=== PATIENT | female | born 1950 | race Caucasian/White ===

== ENCOUNTER 2023-04-25 23:58 | Emergency (ER) | payer OTHER, SELFPAY ==
[2023-04-26 00:02] VITALS: BP 174/76; PULSE 70; RESP 14; TEMP 36.6; O2SAT 95; BMI 23.8
--- NOTE | 2023-04-26 00:06 | ECG_ITS ---
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
--- NOTE | 2023-04-26 00:14 | PC.NURSE ---
Pain to left lower jaw. No pain to a specific tooth, just the entire lower jaw. Patient states that she was at the dentist last week and was told that she had a dental abscess, but was not put on an antibiotic. She is not having pain in her throat, ears, chest.
--- NOTE | 2023-04-26 00:38 | XR_ITS ---
The [address] [address] Patient Name: NEELAM VIRAMONTES MRN: [id number] date: 1950 Sex: F Assigned Patient Location: ER Current Patient Location: ED.MAIN Accession/Order Number: [id number] Exam Date: 04/26/2023 00:41 Report Date: 04/26/2023 01:04 At the request of: FREDDY MARKER Procedure: XR chest 1V XR chest 1V 04/25/2023 11:41 PM LICENSED NURSE PRACTITIONER: History: CP . Acute chest pain. Comparison: None. Technique: 1 view chest Findings: The cardiomediastinal silhouette is normal. The lungs are clear without infiltrate, effusion, or pneumothorax. There is a calcified granuloma in the left midlung. The bones are intact. XR/XR chest 1V Impression: No acute cardiopulmonary process. Electronically authenticated by: ANA MARIA WAYNE Date: 04/26/2023 01:04
--- NOTE | 2023-04-26 00:44 | ED_ITS ---
HPI - General Adult General Chief complaint: Chest Pain Stated complaint: CHEST PAIN HEADACHE Time Seen by Provider: 04/26/23 00:13 Source: patient and family () Mode of arrival: walk-in Limitations: no limitations History of Present Illness HPI narrative: This 73-year-old female is brought emergency department by her for evaluation of multiple complaints; she complains of left lower jaw/dental area pain. She was recently at her dentist and was told that she has a dental abscess but no antibiotics were prescribed. She also has a sore throat. Earlier tonight she had some nonradiating midsternal chest pain. She denies any shortness of breath dizziness or syncope. She does have a history of one coronary stent that was placed many years ago. She also has a history of vascular disease and has an aortic stent. The patient follows up with cardiology at [facility]. She currently has a headache as well. She has not had a fever or cough. She has no abdominal pain. She has no lower extremity pain or swelling. She is not currently on any blood thinners including aspirin after having an intraabdominal bleed at the time that her infrarenal stent was placed. Related Data Home Medications Medication Instructions Recorded Confirmed carvedilol 12.5 mg tablet mg 04/26/23 doxazosin 2 mg tablet mg 04/26/23 hydralazine 50 mg tablet mg 04/26/23 rosuvastatin 20 mg tablet mg 04/26/23 Allergies Allergy/AdvReac Type Severity Reaction Status Date / Time No Known Drug Allergies Allergy Verified 04/26/23 00:08 Review of Systems ROS Status of ROS 10 or more systems reviewed and unremark able except as noted in history and below [facility] Social History Smoking status: Former smoker Exam Narrative Exam Narrative: Nurses note and vital signs reviewed and patient is not hypoxic. Blood pressure is noted to be elevated at 174/76 General: The patient appears well and in no apparent distress. Patient is resting comfortably on cart. Skin: Warm, dry, no pallor noted. There is no rash noted. Head: Normocephalic, atraumatic Eye: Normal conjunctiva, no drainage, EOMI. PERRL. Vision is grossly intact Ears, Nose, Mouth, and Throat: oral mucosa is moist. There are several missing teeth and teeth with silver caps on the left lower jaw area. I do not appreciate any gingival inflammation or periapical abscess. There is no fluctuance or appreciable abscess at the angle of the jaw or mandible, there is no swelling of the tongue, uvula or pharyngeal soft tissues, there is no pooling of secretions, the patient's speech is clear Cardiovascular: Regular Rate and Rhythm S1 S2, pulses are brisk and equal bilaterally Respiratory: Patient is in no distress, no accessory muscle use, lungs are clear to auscultation, no wheezing, rales or rhonchi Back: non-tender, no CVA tenderness bilaterally to percussion. GI: Normal bowel sounds, no tenderness to palpation, no masses appreciated. No rebound, guarding, or rigidity noted. Musculoskeletal: The patient has no evidence of calf tenderness, no pitting edema, symmetrical pulses noted bilaterally Neurological: A&O x4, normal speech Psychiatric: Cooperative Constitutional Vital Signs, click to edit/add: Last Vital Signs Temp 98.0 F 04/26/23 02:48 Pulse 78 04/26/23 02:48 Resp 18 04/26/23 02:48 BP 150/74 H 04/26/23 02:48 Pulse Ox 99 04/26/23 02:48 O2 Del Method Room Air 04/26/23 02:48 Course Vital Signs Vital signs: Vital Signs Temperature 97.9 F 04/26/23 00:02 Pulse Rate 70 04/26/23 00:02 Respiratory Rate 14 04/26/23 00:02 Blood Pressure 174/76 H 04/26/23 00:02 Pulse Oximetry 95 04/26/23 00:02 Oxygen Delivery Method Room Air 04/26/23 00:02 Temperature 98.0 F 04/26/23 02:48 Pulse Rate 78 04/26/23 02:48 Respiratory Rate 18 04/26/23 02:48 Blood Pressure 150/74 H 04/26/23 02:48 Pulse Oximetry 99 04/26/23 02:48 Oxygen Delivery Method Room Air 04/26/23 02:48 Medical Decision Making MDM Narrative Medical decision making narrative: This 73-year-old female with a history of chronic renal insufficiency, coronary artery disease, vascular disease who has a coronary stent and a infrarenal stent presents for evaluation of intermittent chest pain that started earlier in the day and is no longer present as well as pain in her throat and pain in the left side of her jaw. She was recently diagnosed with a dental abscess by her dentist but was not provided with any antibiotics. She is mostly concerned that she has a dental abscess without any antibiotics upon presentation. Her vital signs were normal. She is afebrile. Her physical exam is benign. Her lungs are clear. She does have several missing teeth but I do not see any sign of any fluctuance, jaw tenderness or palpable abscess. She is not having any abdominal pain or lower 70 pain or swelling. She is not on any blood thinners despite having a coronary stents and infrarenal stent becausse she had intra-abdominal bleeding at the time that her infrarenal stent was placed. An EKG was done upon arrival it is a sinus rhythm at 69 beats for minute with no acute changes. She was medicated with 324 mg baby aspirin for the history of chest pain earlier in the day. Her is very attentive to her and managing that she receive antibiotics and pain medication for the dental issue that she is having. She was medicated with Tylenol and 1.5 g of IV Unasyn. Routine cardiac labs were ordered and are reviewed. She has a normal white count and hemoglobin. She has normal troponin. She has chronic renal insufficiency and her creatinine today is 1.49 With a BUN of 33.Chest x-ray was reviewed by radiology and is negative for acute findings. The results of the EKG, x-ray and labs discussed with the patient and her . She will be discharged home with a prescription for amoxicillin to use for the dental infection. She re quests something for pain because she does not think the antibiotics will help her pain and was given a short course of tramadol for the pain. She was also given Zofran to prevent nausea from the tramadol. I encouraged her to follow-up closely with her family physician, [facility]. Lab Data Lab results reviewed: Yes I reviewed the patient's lab results Labs: Lab Results 04/26/23 Range/Units 00:51 WBC 7.9 (4.0-11.0) 10^3/uL RBC 3.36 L (4.20-5.40) 10^6/uL Hgb 10.4 L (12.0-16.0) g/dL Hct 33.3 L (36.0-48.0) % MCV 99.1 H (81.0-99.0) fL MCH 31.0 (26.7-34.0) pg MCHC 31.2 (29.9-35.2) g/dL RDW 13.2 (11.0-15.0) % Plt Count 154 (150-450) 10^3/uL MPV 9.5 (9.5-13.5) fL Neut % (Auto) 72.5 (43.0-75.0) % Lymph % (Auto) 15.8 L (20.5-60.0) % [place] % (Auto) 9.0 (1.7-12.0) % Eos % (Auto) 2.0 (0.9-7.0) % Baso % (Auto) 0.4 (0.2-2.0) % Neut # (Auto) 5.7 (1.4-6.5) 10^3/uL Lymph # (Auto) 1.3 (1.2-3.8) 10^3/uL [place] # (Auto) 0.7 (0.3-0.8) 10^3/uL Eos # (Auto) 0.2 (0.0-0.7) 10^3/uL Baso # (Auto) 0.0 (0.0-0.1) 10^3/uL Abs Immat Gran (auto) 0.02 (0.00-0.03) 10^3/uL Imm/Tot Granulo (auto) 0.3 (0.0-0.5) % Sodium 143 (136-145) mmol/L Potassium 4.2 (3.5-5.1) mmol/L Chloride 107 (98-107) mmol/L Carbon Dioxide 26.0 (21.0-32.0) mmol/L Anion Gap 14.2 BUN 33.0 H (7.0-18.0) mg/dL Creatinine 1.49 H (0.55-1.02) mg/dL Est GFR ( Amer) 42 L (>=60) Est GFR (Non-Af Amer) 34 L (>=60) BUN/Creatinine Ratio 22.1 Glucose 114 H (74-106) mg/dL Lactate 0.5 (0.4-2.0) mmol/L Calcium 8.4 L (8.5-10.1) mg/dL Total Bilirubin 0.4 (0.2-1.0) mg/dL AST 16 (15-37) U/L ALT 14 (14-59) U/L Alkaline Phosphatase 69 (46-116) U/L Troponin I High Sens 6.8 (4.0-51.3) pg/mL Total Protein 6.2 L (6.4-8.2) g/dL Albumin 2.9 L (3.4-5.0) g/dL Globulin 3.3 g/dL Albumin/Globulin Ratio 0.9 ECG Data Attestation: I personally reviewed and interpreted this ECG as follows: (Sinus rhythm at 69 beats for minute, normal axis, normal intervals, no acute ST segment elevation or T-wave inversion) Discharge Plan Discharge Chief Complaint: Chest Pain Clinical Impression: Atypical chest pain, Pain, dental Patient Disposition: Home, Self-Care Time of Disposition Decision: 02:37 Condition: Good Prescriptions / Home Meds: No Action carvedilol 12.5 mg tablet hydralazine 50 mg tablet doxazosin 2 mg tablet rosuvastatin 20 mg tablet Instructions: Toothache (ED), Noncardiac Chest Pain (ED) Stand Alone Forms: Portal Instructions Referrals: Physician,Non-Staff, MD [Primary Care Provider] - 1 week Discharge Date/Time: 04/26/23 02:50
[2023-04-26 01:10] LABS: Basophils Percent Auto 0.4 % (0.2-2.0); Eosinophils Absolute Auto 0.2 10^3/uL (0.0-0.7); Hematocrit 33.3 % (36.0-48.0); Hemoglobin 10.4 g/dL (12.0-16.0); Immature Granulocytes Abs Auto 0.02 10^3/uL (0.00-0.03); Immature Granulocytes Pct Auto 0.3 % (0.0-0.5); Lymphocytes Absolute Auto 1.3 10^3/uL (1.2-3.8); Lymphocytes Percent Auto 15.8 % (20.5-60.0); Mean Corpuscular HGB Conc 31.2 g/dL (29.9-35.2); Mean Corpuscular Volume 99.1 fL (81.0-99.0); Mean Platelet Volume 9.5 fL (9.5-13.5); Monocytes Absolute Auto 0.7 10^3/uL (0.3-0.8); Neutrophils Absolute Auto 5.7 10^3/uL (1.4-6.5); Neutrophils Percent Auto 72.5 % (43.0-75.0); Platelet Count 154 10^3/uL (150-450); Red Blood Count 3.36 10^6/uL (4.20-5.40); Red Cell Distribution Width 13.2 % (11.0-15.0); White Blood Count 7.9 10^3/uL (4.0-11.0)
[2023-04-26 01:25] LABS: Alanine Aminotransferase 14 U/L (14-59); Albumin Globulin Ratio 0.9; Albumin Level 2.9 g/dL (3.4-5.0); Alkaline Phosphatase 69 U/L (46-116); Anion Gap 14.2; Aspartate Amino Transferase 16 U/L (15-37); BUN Creatinine Ratio 22.1; Bilirubin Total 0.4 mg/dL (0.2-1.0); Calcium 8.4 mg/dL (8.5-10.1); Chloride 107 mmol/L (98-107); Estimated GFR (African America 42 (>=60); Estimated GFR (Non-African Ame 34 (>=60); Globulin 3.3 g/dL; Glucose 114 mg/dL (74-106); Lactate/Lactic Acid 0.5 mmol/L (0.4-2.0); Potassium 4.2 mmol/L (3.5-5.1); Sodium 143 mmol/L (136-145); Total Protein 6.2 g/dL (6.4-8.2); Troponin I High Sensitivity 6.8 pg/mL (4.0-51.3)
[2023-04-26] MEDS: AMPICILLIN SODIUM/SULBACTAM NA 1.5 GM in 0.9 % SODIUM CHLORIDE 50 ML IV (01:26)
[2023-04-26] MEDS: ASPIRIN 81 MG TAB.CHEW 324 MG PO (01:27)
[2023-04-26] MEDS: ACETAMINOPHEN 325 MG TABLET 650 MG PO (02:18)
[2023-04-26 02:48] VITALS: BP 150/74; PULSE 78; RESP 18; TEMP 36.7; O2SAT 99
== END 2023-04-26 02:50 | disposition home or self-care (01) ==
PROVIDERS: Emergency Provider Emergency Medicine
DX: R07.89 Other chest pain (principal); K08.89 Other specified disorders of teeth and supporting structures; Z95.5 Presence of coronary angioplasty implant and graft; R51.9 Headache, unspecified; Z87.891 Personal history of nicotine dependence; N18.9 Chronic kidney disease, unspecified; I25.10 Atherosclerotic heart disease of native coronary artery without angina pectoris; Z95.828 Presence of other vascular implants and grafts
CPT/HCPCS: 36415; 71045; 80053; 83605; 84484; 85025; 93005; 96365; 99285; J0295; J1885

== ENCOUNTER 2023-05-20 13:56 | Observation (INO) | payer OTHER, SELFPAY ==
[2023-05-20] VITALS (41 sets, daily range): BP systolic 65–118; BP diastolic 39–75; PULSE 54–135; RESP 12–26; TEMP 36.4–36.8; O2SAT 95–97; BMI 25.0; BMI 21.9
--- NOTE | 2023-05-20 14:47 | ECG_ITS ---
The 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
--- NOTE | 2023-05-20 14:47 | XR_ITS ---
The [address] [address] Patient Name: NEELAM VIRAMONTES MRN: [id number] date: 1950 Sex: F Assigned Patient Location: ED.MAIN Current Patient Location: ER Accession/Order Number: [id number] Exam Date: 05/20/2023 15:08 Report Date: 05/20/2023 15:20 At the request of: MARTI RIVERS Procedure: XR chest 1V EXAM: XR chest 1V at 1503 hours HISTORY: chest pain COMPARISON: 04/26/2023 TECHNIQUE: AP upright portable chest x-ray FINDINGS: The heart is not enlarged and the vasculature is not distended. No acute infiltrate, effusion or pneumothorax is identified. A calcified granuloma is seen in the left midlung. The osseous structures are grossly intact. XR/XR chest 1V IMPRESSION: No acute infiltrate or evidence of cardiac decompensation. Mild chronic changes are noted. The overall appearance is unchanged. Electronically authenticated by: NATALIE ALLEN Date: 05/20/2023 15:20
--- NOTE | 2023-05-20 14:49 | ED.CHESTPAI1 ---
HPI - Chest Pain General Chief Complaint: Chest Pain Stated Complaint: CHEST PAIN Time Seen by Provider: 05/20/23 14:07 Source: patient Mode of arrival: Wheelchair Limitations: no limitations History of Present Illness HPI narrative: Patient presents complaining of midsternal chest pain rating slightly into the left chest. The patient was already evaluated at [place] emergency department earlier this morning. She had actually been admitted there earlier in the week and stayed there from May 15 until her discharge on May 18. She had right upper quadrant abdominal pain that they attributed to a gallbladder attack. Her MRCP did not reveal any stones that she did not have acute cholecystitis but they did consider that perhaps pain medicine had contributed to her pain, telling the that the sphincter of Oddi was irritated from the pain medication. She has history of atrial fibrillation. She was apparently in a rapid A-fib or rapid a flutter when she arrived to the emergency department this morning at 7 AM in [place]. She had taken a couple leftover amiodarone pills this morning. She had been prescribed amiodarone after her Hospitalization earlier in the week but did not have a chance to get her prescription filled. These pills were about 4 years old and possibly . By the time she began her ED evaluation I had received a negative troponin, negative chest x-ray and negative blood tests, she spontaneously decrease her heart rate into the 80s. She was still complaining of significant pain in the left chest, which has been present intermittently since her hospitalization earlier in the week. She has been ruled out for acute coronary etiology of this chest pain on previous admission and they were waiting for the second troponin to come back this morning. She was given low-dose Dilaudid without any improvement after also receiving an oral Nerstrand without any improvement with regards to the pain. Apparently, according to the medical record I reviewed from [place] emergency department and the patient's visit this morning, they consulted with cardiology who determined that the patient could go home with continued use of amiodarone or be transferred to a facility that has electrophysiology cardiology coverage over the weekend. They recommended either [facility] or one of the facilities in [place]. The patient and her spouse became upset, did not want to be transferred to another facility and decided to sign out and come to our emergency department instead. They apparently called administration at some point and wanted to know the extent to which would be able to take care of cardiac patients. On arrival, the patient continues to complain of pain to the left upper chest. She denied any associated shortness of breath. She denies any palpitations at this time. No GI or symptoms. The right upper quadrant abdominal pain that she had been experiencing earlier in the week has now resolved. Related Data Home Medications ?Medication ?Instructions ?Recorded ?Confirmed carvedilol 12.5 mg tablet mg 04/26/23 doxazosin 2 mg tablet mg 04/26/23 hydralazine 50 mg tablet mg 04/26/23 rosuvastatin 20 mg tablet mg 04/26/23 Allergies Allergy/AdvReac Type Severity Reaction Status Date / Time No Known Drug Allergies Allergy Verified 04/26/23 00:[address] [facility] Social History Smoking status: Former smoker Exam Narrative Exam Narrative: Nurses notes and vital signs reviewed and patient is not hypoxic. Afebrile General: Well-appearing and in no apparent distress. Skin: Warm, dry, no pallor noted. No rash. Eye: Pupils are equal, round and EOMI. No scleral icterus. Ears, Nose, Mouth, and Throat: Oral mucosa is moist Cardiovascular: Irregular tachycardia Respiratory: No accessory muscle use or respiratory distress. Lungs are clear to auscultation, no wheezing, rales or rhonchi Chest Wall: no tenderness Musculoskeletal: normal ROM, no calf or popliteal tenderness, no lower extremity edema/swelling GI: Abdomen is soft, non-distended. Normal bowel sounds. No tenderness to palpation. No rebound, guarding, or rigidity noted. Neurological: A&O x4. No cranial nerve dysfunction observed. No truncal ataxia. Moves all extremities. Sensation intact. Psychiatric: Cooperative and interactive. Normal mood and affect. Constitutional Vital Signs, click to edit/add: Last Vital Signs Temp 97.6 F 05/20/23 14:08 Pulse 135 H 05/20/23 14:08 Resp 18 05/20/23 14:08 BP 118/75 05/20/23 14:08 Pulse Ox 97 05/20/23 14:08 O2 Del Method Room Air 05/20/23 14:08 Course Vital Signs Vital signs: Vital Signs Temperature 97.6 F 05/20/23 14:08 Pulse Rate 135 H 05/20/23 14:08 Respiratory Rate 18 05/20/23 14:08 Blood Pressure 118/75 05/20/23 14:08 Pulse Oximetry 97 05/20/23 14:08 Oxygen Delivery Method Room Air 05/20/23 14:08 Temperature 97.6 F 05/20/23 14:08 Pulse Rate 135 H 05/20/23 14:08 Respiratory Rate 18 05/20/23 14:08 Blood Pressure 118/75 05/20/23 14:08 Pulse Oximetry 97 05/20/23 14:08 Oxygen Delivery Method Room Air 05/20/23 14:08 MDM - Chest Pain MDM Narrative Medical decision making narrative: Patient was placed on sort operations supervisor and EKG obtained. Blood drawn and sent for evaluation. Chest x-ray once again obtained. The patient was ordered to receive some normal saline IV fluid. She spontaneously converted from a rapid atrial flutter to a rate controlled atrial flutter while I was in interviewing and examining her. She was given IV fentanyl for pain along with IV Zofran to prevent nausea associated with fentanyl use. WBC minimally elevated at 11.1. Hb 11.2. Left shift noted. BMP reveals normal electrolytes, mildly elevated BUN and creatinine at 28 and 1.42. Troponin was normal but BNP was elevated at over 8800. This is likely associated with the patient's paroxysmal atrial flutter as she has times in which she has sustained tachycardia and then spontaneously reverts to rate controlled a flutter. CXR without pulmonary edema or other findings to account for the patient's elevated BNP. Call placed to the applications administrator hospitalist to discuss admission. Dr Lynch and I discussed the patient's case. he wants a cardizem drip started on the patient but agrees to admit the patient to SDU, obs basis. Medical Records Data Attestation: I reviewed the patient's medical records. Medical records narrative: See my review of the patient's [place] emergency department record in the HPI above Lab Data Attestation: I reviewed the patient's lab results. Labs: Lab Results 05/20/23 Range/Units 14:17 WBC 11.1 H (4.0-11.0) 10^3/uL RBC 3.61 L (4.20-5.40) 10^6/uL Hgb 11.2 L (12.0-16.0) g/dL Hct 35.8 L (36.0-48.0) % MCV 99.2 H (81.0-99.0) fL MCH 31.0 (26.7-34.0) pg MCHC 31.3 (29.9-35.2) g/dL RDW 13.6 (11.0-15.0) % Plt Count 158 (150-450) 10^3/uL MPV 10.4 (9.5-13.5) fL Neut % (Auto) 83.4 H (43.0-75.0) % Lymph % (Auto) 7.5 L (20.5-60.0) % [place] % (Auto) 8.0 (1.7-12.0) % Eos % (Auto) 0.5 L (0.9-7.0) % Baso % (Auto) 0.2 (0.2-2.0) % Neut # (Auto) 9.3 H (1.4-6.5) 10^3/uL Lymph # (Auto) 0.8 L (1.2-3.8) 10^3/uL [place] # (Auto) 0.9 H (0.3-0.8) 10^3/uL Eos # (Auto) 0.1 (0.0-0.7) 10^3/uL Baso # (Auto) 0.0 (0.0-0.1) 10^3/uL Abs Immat Gran (auto) 0.04 H (0.00-0.03) 10^3/uL Imm/Tot Granulo (auto) 0.4 (0.0-0.5) % Sodium 137 (136-145) mmol/L Potassium 3.9 (3.5-5.1) mmol/L Chloride 105 (98-107) mmol/L Carbon Dioxide 22.7 (21.0-32.0) mmol/L Anion Gap 13.2 BUN 28.0 H (7.0-18.0) mg/dL Creatinine 1.42 H (0.55-1.02) mg/dL Est GFR ( Amer) 44 L (>=60) Est GFR (Non-Af Amer) 36 L (>=60) BUN/Creatinine Ratio 19.7 Glucose 110 H (74-106) mg/dL Calcium 8.2 L (8.5-10.1) mg/dL Troponin I High Sens 9.3 (4.0-51.3) pg/mL NT-Pro-B Natriuret Pep 8830.0 H* (<=900.0) pg/mL Imaging Data Chest x-ray: Attestation: I have reviewed the pertinent imaging results. Radiologist's impression: ITS Impressions Chest X-Ray 05/20/23 14:47 IMPRESSION: No acute infiltrate or evidence of cardiac decompensation. Mild chronic changes are noted. The overall appearance is unchanged. Electronically authenticated by: NATALIE ALLEN Date: 05/20/2023 15:20 ECG Data Attestation: I personally reviewed and interpreted this ECG as follows: Interpretation: EKG interpretation: Emergency Department physician interpretation. Rapid atrial flutter at 123bpm. Nonspecific T wave changes with flutter waves noted. I do not see any significant ST elevation Critical Care Time Critical Care Time Critical Care Time: Yes Total Critical Care Time: 35 Attestation: Critical Care Time: 35 minutes, critical care time is separate from any procedures that are performed. The following was considered in the determination of critical care but not limited to the level medical decision-making, intensive cardiac and/or respiratory monitor, frequent vital sign monitoring, evaluation of laboratory studies, evaluation of a radiographic studies, oxygen monitoring and constant monitoring. Discharge Plan Discharge Chief Complaint: Chest Pain Clinical Impression: Atrial flutter, paroxysmal, Chest pain Patient Disposition: Admitted as Observation Time of Disposition Decision: 14:57
[2023-05-20 14:58] LABS: Basophils Percent Auto 0.2 % (0.2-2.0); Eosinophils Absolute Auto 0.1 10^3/uL (0.0-0.7); Eosinophils Percent Auto 0.5 % (0.9-7.0); Hematocrit 35.8 % (36.0-48.0); Hemoglobin 11.2 g/dL (12.0-16.0); Immature Granulocytes Abs Auto 0.04 10^3/uL (0.00-0.03); Immature Granulocytes Pct Auto 0.4 % (0.0-0.5); Lymphocytes Absolute Auto 0.8 10^3/uL (1.2-3.8); Lymphocytes Percent Auto 7.5 % (20.5-60.0); Mean Corpuscular HGB Conc 31.3 g/dL (29.9-35.2); Mean Corpuscular Volume 99.2 fL (81.0-99.0); Mean Platelet Volume 10.4 fL (9.5-13.5); Monocytes Absolute Auto 0.9 10^3/uL (0.3-0.8); Neutrophils Absolute Auto 9.3 10^3/uL (1.4-6.5); Neutrophils Percent Auto 83.4 % (43.0-75.0); Platelet Count 158 10^3/uL (150-450); Red Blood Count 3.61 10^6/uL (4.20-5.40); Red Cell Distribution Width 13.6 % (11.0-15.0); White Blood Count 11.1 10^3/uL (4.0-11.0)
[2023-05-20] MEDS: FENTANYL CITRATE/PF 100 MCG/2 ML VIAL 50 MCG IV (15:00)
[2023-05-20] MEDS: ONDANSETRON PF 4 MG/2 ML VIAL IV (15:00)
[2023-05-20 15:13] LABS: Anion Gap 13.2; BUN Creatinine Ratio 19.7; Calcium 8.2 mg/dL (8.5-10.1); Carbon Dioxide 22.7 mmol/L (21.0-32.0); Chloride 105 mmol/L (98-107); Estimated GFR (African America 44 (>=60); Estimated GFR (Non-African Ame 36 (>=60); Glucose 110 mg/dL (74-106); Potassium 3.9 mmol/L (3.5-5.1); Sodium 137 mmol/L (136-145); Troponin I High Sensitivity 9.3 pg/mL (4.0-51.3)
[2023-05-20] MEDS: dilTIAZem HCL 125 MG in 0.9 % SODIUM CHLORIDE 100 ML IV (16:15)
--- OUTSIDE RECORDS SUMMARY | 2023-05-20 16:26 | XMS_ITS | CCD ---
Author Organization [facility] Care Team Providers Care Calciner Operator Helper Name Role Phone EBRAHEIM, GILMER Unavailable Unavailable EBRAHEIM, GILMER Unavailable Unavailable EBRAHEIM, GILMER Unavailable Unavailable SELF, REFERRED Unavailable Unavailable Yudith PARISH, Kayla H Primary Care Provider Deitzer DO, Janey Unavailable Kayla Monterroso MD H Primary Care Provider Deitzer DO, Janey Unavailable EILEEN JACKSON Attending Unavailable MONTERROSO, KAYLA H Referring Unavailable MONTERROSO, KAYLA H Primary Care Unavailable Yudith PARISH, Kayla H Primary Care Provider Deitzer DO, Janey Unavailable SAHIL, DR HSIEH Primary Care Unavailable MILTON CURRY Admitting Unavailable MILTON CURRY Attending Unavailable DANIELLA DURBIN Consulting Unavailable ENA BATRES Consulting Unavailable Deitzer DO, Janey Unavailable CASTLE, AYO W Referring Unavailable MONTERROSO, KAYLA H Primary Care Unavailable CASTLE, AYO W Referring Unavailable MONTERROSO, KAYLA H Primary Care Unavailable MONTERROSO, KAYLA H Primary Care Unavailable RENAE GERMAN Referring Unavailable MONTERROSO, KAYLA H Primary Care Unavailable SRINATH ROSEN Referring Unavailable IRA BECKMAN Attending Unavailable RENAE GERMAN Attending Unavailable MONTERROSO, KAYLA H Primary Care Unavailable LITA ALDANA Referring Unavailable MONTERROSO, KAYLA H Primary Care Unavailable STEENBERGE, SERGO Referring Unavailable MONTERROSO, KAYLA H Primary Care Unavailable STEENBERGE, SERGO Referring Unavailable MONTERROSO, KAYLA H Primary Care Unavailable STEENBERGE, SERGO Referring Unavailable CASTLE, AYO W Referring Unavailable MONTERROSO, KAYLA H Primary Care Unavailable CASTLE, AYO W Attending Unavailable MONTERROSO, KAYLA H Primary Care Unavailable JACKSON, EILEEN M Referring Unavailable JACKSON, EILEEN M Attending Unavailable MONTERROSO, KAYLA H Primary Care Unavailable RISA WARNER Referring Unavailable RISA WARNER Attending Unavailable MONTERROSO, KAYLA H Primary Care Unavailable IRA VELEZ Attending Unavailable MONTERROSO, KAYLA H Primary Care Unavailable CASTLE, AYO W Attending Unavailable MONTERROSO, KAYLA H Primary Care Unavailable RUPESH GU Attending Unavailable MONTERROSO, KAYLA H Primary Care Unavailable MONTERROSO, KAYLA H Primary Care Unavailable MONTERROSO, KAYLA H Referring Unavailable SRINATH ROSEN Attending Unavailable Izzy Chu DDS Attending Unavailable Eden Yañez CNP Primary Care Provider Kayla Monterroso MD Primary Care Provider LUIS ESTRELLA Attending Unavailable LUIS ESTRELLA Admitting Unavailable PRISCA LINDSEY Consulting Unavailable [facility] Primary Care Unavailable JOSE TELLES Consulting Unavailable Allergies Allergy Classification Reported Allergen(s) Allergy Type Date of Onset Reaction(s) Facility (20 sources) amLODIPine; Translations: [AMLODIPINE BESYLATE] Drug Allergy 06-15-2018 [facility] (20 sources) cilostazol; Translations: [CILOSTAZOL] Drug Allergy 06-09-2016 [facility] (1 source) cefTRIAXone Drug Allergy 05-17-2023 [facility] Medications Current Medications Medication Drug Class(es) Dates Sig (Normalized) Sig (Original) Acetaminophen (20 sources) Start: 05-17-2023 acetaminophen (TYLENOL) tablet 650 mg Start: 07-26-2018 take 2 tablets by mo [facility] every six hours as needed acetaminophen (TYLENOL) 325 mg tablet Take 2 tablets by mouth every 6 hours as needed for Pain. 0 07/26/2018 Active Comment on above: Take 2 tablets by mo uth every 6 hours as needed for Pain. amiodarone hydrochloride 200 mg oral tablet (2 sources) Antiarrhythmic Start: 05-20-19 take 1 tablet by mouth once daily amiodarone (CORDARONE) 200 MG tablet Take 1 tablet by mouth daily 30 tablet 1 05/20/2023 Active Start: 05-19-2023 amiodarone (CO RDARONE) tablet 200 mg amoxicillin 500 mg oral tablet (1 source) Penicillin-class Antibacterial Start: 05-17-2023 End: 05-18-2023 Amoxicillin 500 MG Oral Tablet 05/17/2023 - 05/18/2023 Provider: Izzy Chu DDS efinaconazole 100 mg/ml topical solution (20 sources) Azole Antifungal Start: 05-17-2023 Jublia 10% Ex ternal Solution 05/17/2023 Provider: Start: 12-27-2018 End: 10-21-2022 efinaconazole (JUBLIA) 10 % rosalio Apply to affected area once daily. 8 mL 4 10/21/2022 Active Comment on above: Apply to affected ar ea once daily. 0.5 ml HYDROmorphone hydrochloride 1 mg/ml prefilled syringe (2 sources) Opioid Agonist Start: End: take 1 mg by mouth every six hours as needed for pain 1 mg, IntraVENous, EVERY 6 HOURS PRN, Starting on Tue05/17/23 at 2003, Until Discontinued, Pain Severe (7-10), Allowed for higher pain score per patient request If oral and IV narcotics ordered, use oral first and only use IV if oral is ineffective or cannot take oral. Do Not give oral and IV within 1 hour of each other unless specifically ordered. 50 ml magnesium sulfate 40 mg/ml injection (1 source) Start: 2,000 mg, IntraVENous, at 25 mL/hr, Administer over 2 Hours, PRN, Other, Magnesium Replacement, Starting on Tue05/17/23 at 2003 Mag [facility] Replacement Action 1.4-1.6 mg/dL &amp ;nbsp; 2,000 mg Total Dose Given as 1,000 mg IVPB x 2 doses or 2,000 mg IVPB x 1 dose &nbsp ; &n bsp; &nbsp ; &n bsp; &nbsp ; 1.0-1.3 mg/dL 4,000 mg Total Dose &nbsp ; &n bsp; &nbsp ; &n bsp; Given as 1,000 mg IVPB x 4 doses or 2,000 mg IVPB x 2 doses Less than 1.0 mg/dL CALL PHYSICIAN and give &nbsp ; &n bsp; &nbsp ; &n bsp; &nbsp ; 4,000 mg Total Dose &nbsp ; &n bsp; &nbsp ; &n bsp; &nbsp ; Given as 1,000 mg IVPB x 4 doses or 2,000 mg IVPB x 2 doses &nbs p;Infuse at 1,000 mg/hr Repeat Mag level 1 hour after final administration P rotocol not for use in Patients with CrCl less than 30ml/min meclizine hydrochloride 12.5 mg oral tablet (1 source) Antiemetic End: take 1 tablet by mouth twice daily meclizine (ANTIVERT) 12.5 MG tablet Take 1 tablet by mouth 2 times daily 0 05/19/2023 Discontinued (Stop Taking at Discharge) naproxen 250 mg oral tablet (2 sources) Nonsteroidal Anti-inflammatory Drug Start: End: take 1 tablet by mouth twice daily at mealtime naproxen (NAPROSYN) 250 MG tablet Take 1 tablet by mouth 2 times daily (with meals) for 19 doses 19 tablet 0 05/19/2023 05/29/2023 Active NONFORMULARY (1 source) End: NONFORMULARY Pt states she takes medication for BP but is unsure of the name 0 05/19/2023 Discontinued (Stop Taking at Discharge) ondansetron (ZOFRAN-ODT) disintegrating tablet 4 mg (1 source) Start: ondansetron (ZOFRAN-ODT) disintegrating tablet 4 mg pantoprazole 40 mg delayed release oral tablet (2 sources) Proton Pump Inhibitor Start: take 1 tablet by mouth once daily before breakfast pantoprazole (PROTONIX) 40 MG tablet Take 1 tablet by mouth every morning (before breakfast) 90 tablet 1 05/19/2023 Active Start: 05-18-2023 pantoprazole ( PROTONIX) injection 40 mg perflutren lipid microsphere s 1.3 mL in NaCl (PF) 0.9% 10 mL injection (DEFINITY) (14 sources) Start: 11-27-2020 End: 02-26-2022 perflutren lipid microsphere s 1.3 mL in NaCl (PF) 0.9% 10 mL injection (DEFINITY) Potassium Chloride (1 source) Start: 05-17-2023 potassium chlo ride (KLOR-CON M) extended release tablet 40 mEq 1000 ml sodium chloride 9 mg /ml injection (18 sources) Start: 05-17-2023 IntraVENous, a t 5-250 mL/hr, PRN, if patient receiving piggyback infusions and maintenance fluids are not ordered OR KVO fluids to protect IV site / prevent frequent line interruptions/ long duration, Starting on Tue05/17/23 at 2003 For piggyback infusion, administer at same rate as piggyback for a total of 25 mL. Enter 25 mL into dose field and piggyback rate into rate field of order. If piggyback is infusing at a rate less than 100 mL/hr, enter 25 mL into dose field and 100 mL/hr into rate field of order. For KVO fluids, enter rate of 20 mL/hr or less into rate field of order. Start: 05-17-2023 take 1 dose intraven ously twice daily 5-40 mL, IntraVENous, EVERY 12 HOURS SCHEDULED (2 times per day), First dose on Tue05/17/23 at 2100, Until Discontinued For Line Patency: Peripheral IV = 5 mL; Midline or Central Line = 10 mL/lumen. If following IV push medication, administer flush at same rate as the IV push. Flush volume is determined by type of infusion therapy being given. For non-viscous solutions use: Peripheral IV = 5 mL Midline or Central Line = 10 mL/lumen For viscous solutions (i.e. blood components, parenteral nutrition, contrast media, or after obtaining blood sample) use: Peripheral IV = 10 mL Midline or Central Line = 20 mL/lumen Start: 05-17-2023 take 10 mL intraveno usly once as needed 10 mL, IntraVENous, PRN, Starting on Tue05/17/23 at 2004, Until Discontinued, Line Care, After every IV line use Start: 05-17-2023 End: 05-17-2023 sodium chloride 0.9 % bolus 500 mL Start: 11-27-2020 End: 02-26-2022 sodium chloride 0.9 % (flush ) 10 mL (BD POSIFLUSH) Completed/Discontinued Medications Medication Drug Class(es) Dates Sig (Normalized) Sig (Original) aspirin 81 mg delayed release oral tablet (1 source) Platelet Aggregation Inhibitor, Nonsteroidal Anti-inflammatory Drug End: 05-17-2023 take 1 tablet by mouth once daily aspirin EC 81 MG EC tablet Take 81 mg by mouth daily 0 05/17/2023 Discontinued (LIST CLEANUP) carvedilol 12.5 mg oral tablet (20 sources) alpha-Adrenergic Shannen, beta-Adrenergic Shannen Start: 04-21-2023 take 12.5 mg by mouth twice daily at mealtime 12.5 mg, Oral, 2 TIMES DAILY, First dose on Tue05/17/23 at 2100, Until Discontinued Administer with food to minimize the risk of orthostatic hypotension Start: 03-23-2021 End: 10-21-2022 take 1 tablet by mouth twice daily at mealtime carvedilol (COREG) 12.5 mg tablet Indications: Paroxysmal atrial fibrillation (HCC) Take 1 tablet by mouth twice daily with meals. 180 tablet 3 10/21/2022 Active take 2 tablets by mo [facility] twice daily carvedilol (COREG) 6.25 MG tablet Take 2 tablets by mouth 2 times daily 0 Suspended Comment on above: Take 1 tablet by bella twice daily with meals. doxazosin 1 mg oral tablet (20 sources) alpha-Adrenergic Shannen Start: 05-17-2023 take 2 mg by mouth once daily 2 mg, Oral, NIGHTLY, First dose on Tue05/17/23 at 2100, Until Discontinued Start: 03-10-2023 Doxazosin Mesy late 2 MG Oral Tablet 03/10/2023 Provider: Start: 11-04-2020 End: 10-21-2022 take 1 tablet by mouth twice daily doxazosin (CARDURA) 2 mg tablet Take 1 tablet by mouth twice daily. 180 tablet 3 10/21/2022 Active take 1 tablet by bella once daily doxazosin (CARDURA) 2 MG tablet Take 1 tablet by mouth nightly 0 Suspended Comment on above: Take 1 tablet by bella twice daily. TAKE 1 TABLET BY [facility] TWICE A DAY 0.4 ml enoxaparin sodium 100 mg/ml prefilled syringe (1 source) Low Molecular Weight Heparin Start: inject 40 mg by subcutaneous injection once daily 40 mg, SubCUTAneous, DAILY, First dose on Tue05/17/23 at 2030, Until Discontinued Indication of Use: Prophylaxis-DVT/PE estradiol 0.1 mg/ml vaginal cream (20 sources) Estrogen Start: estradiol (ESTRACE) 0.01 % (0.1 mg/gram) vaginal cream Use 1 g vaginally once daily. 30 g 0 09/29/2020 Active Comment on above: Use 1 g vaginally on ce daily. 2 ml fentaNYL 0.05 mg/ml injection (2 sources) Opioid Agonist Start: 024 End: fentaNYL (SUBLIMAZE) injection 25 mcg fluticasone furoate 0.0275 mg/actuat metered dose nasal spray (20 sources) Corticosteroid Start: 022 End: take 2 spray(s) nasal route once daily Fluticasone Furoate (FLONASE SENSIMIST) 27.5 mcg/actuation nasal spray Use 2 Sprays in each nostril once daily. 9.1 mL 3 10/21/2022 Active Comment on above: Use 2 Sprays in each nostril once daily. gadoteridol (PROHANCE) injection 12 mL (1 source) Start: End: gadoteridol (PROHANCE) injection 12 mL hydrALAZINE hydrochloride 50 mg oral tablet (20 sources) Arteriolar Vasodilator Start: take 50 mg by mouth three times daily 50 mg, Oral, 3 TIMES DAILY, First dose on Tue05/17/23 at 1930, Until Discontinued Start: 11-27-2020 End: 10-21-2022 take 1 tablet by mouth three times daily hydrALAZINE (APRESOLINE) 50 mg tablet Indications: Essential hypertension Take 1 tablet by mouth three times daily. 270 tablet 3 10/21/2022 Active Comment on above: Take 1 tablet by bella th three times daily. TAKE 1 TABLET BY BELLA TH THREE TIMES A DAY iopamidol (ISOVUE-370) 76 % injection 75 mL (1 source) Start: 4 End: iopamidol (ISOVUE-370) 76 % injection 75 mL loratadine 10 mg oral tablet (20 sources) take 1 tablet by mouth once daily as needed loratadine (CLARITIN) 10 mg tablet Take 10 mg by mouth once daily as needed. 0 Active Comment on above: Take 10 mg by mouth once daily. Take 10 mg by mouth once daily as needed. losartan potassium 25 mg oral tablet (1 source) Angiotensin 2 Receptor Shannen End: 4 take 1 tablet by mouth once daily losartan (COZAAR) 25 MG tablet Take 25 mg by mouth daily 0 05/17/2023 Discontinued (LIST CLEANUP) 5 ml metoprolol tartrate 1 mg/ml injection (1 source) beta-Adrenergic Shannen Start: 4 End: 4 metoprolol (LOPRESSOR) injection 5 mg 1 ml morphine sulfate 4 mg/ml cartridge (1 source) Opioid Agonist Start: 4 End: 4 morphine injection 4 mg oxyCODONE hydrochloride 5 mg oral tablet (2 sources) Opioid Agonist Start: 4 End: 4 take 5 mg by mouth every six hours as needed for pain 5 mg, Oral, EVERY 6 HOURS PRN, Starting on Tue05/18/23 at 1544, Until Tue05/19/23 at 0733, Pain Severe (7-10) pantoprazole (PROTONIX) 40 mg in sodium chloride 0.9 % 50 mL bolus (1 source) Start: 4 End: 4 40 mg, IntraVENous, at 100 mL/hr, Administer over 30 Minutes, DAILY, First dose on Tue05/17/23 at 2030 polyethylene glycol [id number] [id number] mg powder for oral solution (1 source) Osmotic Laxative Start: 4 17 g, Oral, DAILY PRN, Starting on Tue05/17/23 at 2004, Until Discontinued, Constipation First line therapy for constipation pravastatin sodium 80 mg oral tablet (1 source) HMG-CoA Reductase Inhibitor End: 4 take 1 tablet by mouth once daily pravastatin (PRAVACHOL) 80 MG tablet Take 80 mg by mouth nightly 0 05/17/2023 Discontinued (LIST CLEANUP) rivaroxaban 20 mg oral tablet (2 sources) Factor Xa Inhibitor Start: 6 End: 4 take 1 tablet by mouth every twenty-four hours rivaroxaban (XARELTO) 20 MG TABS tablet Take 1 tablet by mouth every 24 hours Start after completing 15 mg BID loading dose. 30 tablet 2 08/22/2015 05/17/2023 Discontinued (LIST CLEANUP) Start: 08-20-2015 End: 05-17-2023 take 1 tablet by mouth twice daily at mealtime rivaroxaban (XARELTO) 15 MG TABS tablet Take 1 tablet by mouth 2 times daily (with meals) 42 tablet 0 08/20/2015 05/17/2023 Discontinued (LIST CLEANUP) rosuvastatin calcium 20 mg oral tablet (20 sources) HMG-CoA Reductase Inhibitor Start: 03-28-2023 take 20 mg by mouth once daily 20 mg, Oral, DAILY, First dose on Tue05/17/23 at 2030, Until Discontinued Start: 10-01-2022 End: 10-21-2022 take 1 tablet by mouth at bedtime rosuvastatin (CRESTOR) 20 mg tablet Indications: 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 , Mixed hyperlipidemia take 1 tablet by mouth at bedtime 90 tablet 3 10/21/2022 Active Start: 03-23-2021 End: 09-21-2021 take 1 tablet by mouth once daily at bedtime rosuvastatin (CRESTOR) 20 mg tablet Indications: Mixed hyperlipidemia , 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 TAKE 1 TABLET BY MOUTH EVERYDAY AT BEDTIME 90 tablet 3 09/21/2021 Active Rosuvastatin He cium 20 MG CPSP Take by mouth 0 Suspended Comment on above: TAKE 1 TABLET BY BELLA TH EVERYDAY AT BEDTIME take 1 tablet by bella th at bedtime water 1000 mg/ml injectable solution (2 sources) Start: 05-18-2023 End: 05-19-2023 sterile water injection Problems Active Problems Problem Classification Problem Date Documented Date Episodic/Chronic Abdominal pain (4 sources) Right sided abdominal pain; Translations: [Unspecified abdominal pain] Onset: 4 05-18-2023 Episodic Aortic and peripheral arterial embolism or thrombosis (14 sources) Occlusion of aortoiliac artery; Translations: [Other arterial embolism and thrombosis of abdominal aorta] Onset: 3 Chronic Cardiac dysrhythmias (20 sources) Paroxysmal atrial fibrillation; Translations: [Paroxysmal atrial fibrillation] Onset: 9 03-18-2020 Chronic Chronic kidney disease (20 sources) Chronic kidney disease stage 4; Translations: [Chronic kidney disease, stage 4 (severe)] Onset: 2 04-24-2019 Chronic Conditions associated with dizziness or vertigo (1 source) Lightheadedness; Translations: [Dizziness and giddiness] Episodic Coronary atherosclerosis and other heart disease (20 sources) History of acute ST segment elevation myocardial infarction; Translations: [Old myocardial infarction] Onset: 0 12-01-2018 Chronic Disorders of lipid metabolism (20 sources) Hyperlipidemia; Translations: [Hyperlipidemia, unspecified] Onset: 6 07-26-2018 Chronic Essential hypertension (20 sources) Hypertensive disorder; Translations: [Essential (primary) hypertension] Onset: 9 07-26-2018 Chronic Headache; including migraine (3 sources) Tension-type headache; Translations: [Tension-type headache, unspecified, not intractable] Chronic Headache; including migraine (1 source) Headache disorder; Translations: [Headache disorder] Onset: 2 Episodic Heart valve disorders (20 sources) Non-rheumatic mitral regurgitation ; Translations: [Nonrheumatic mitral (valve) insufficiency] Onset: 7 03-10-2016 Chronic Hypertension with complications and secondary hypertension (1 source) Chronic kidney disease stage 3; Translations: [Hypertensive chronic kidney disease with stage 1 through stage 4 chronic kidney disease, or unspecified chronic kidney disease] 11-15-2022 Chronic Immunizations and screening for infectious disease (2 sources) Contact with and (suspected) exposure to other viral communicable diseases; Translations: [Encounter for screening for human immunodeficiency virus [HIV]] Onset: 2 Episodic Malaise and fatigue (1 source) Other fatigue; Translations: [OTHER FATIGUE] Onset: 2 Episodic Nausea and vomiting (1 source) Nausea; Translations: [NAUSEA] Onset: 2 Episodic Nonspecific chest pain (3 sources) Chest pain; Translations: [Chest pain, unspecified] Onset: 4 05-18-2023 Episodic Occlusion or stenosis of precerebral arteries (5 sources) Bilateral stenosis of carotid arteries; Translations: [Occlusion and stenosis of bilateral carotid arteries] Onset: 3 Chronic Other aftercare (1 source) Other buttermaker continuous churn (current) drug therapy; Translations: [OTH DENTAL RECEPTIONIST CURRENT DRUG THERAPY] Onset: 2 Episodic Other diseases of kidney and ureters (20 sources) Hyperparathyroidism due to renal insufficiency; Translations: [Secondary hyperparathyroidism of renal origin] Onset: 9 12-21-2018 Chronic Other ear and sense organ disorders (1 source) Other specified hearing loss, unspecified ear; Translations: [Other specified hearing loss, unspecified ear] Onset: 4 Chronic Other ear and sense organ disorders (2 sources) Tinnitus; Translations: [Tinnitus, unspecified ear] Episodic Other ear and sense organ disorders (2 sources) Tinnitus of vascular origin; Translations: [Pulsatile tinnitus, left ear] Episodic Other ear and sense organ disorders (1 source) Tinnitus of left ear; Translations: [Tinnitus, left ear] Episodic Other ear and sense organ disorders (1 source) Pulsatile tinnitus, left ear; Translations: [Pulsatile tinnitus, left ear] Onset: 2 Episodic Other fractures (1 source) Compression fracture of thoracic vertebra; Translations: [Wedge compression fracture of unspecified thoracic vertebra, initial encounter for closed fracture] 08-21-2015 Episodic Other gastrointestinal disorders (1 source) Diarrhea, unspecified; Translations: [DIARRHEA UNSPECIFIED] Onset: 2 Episodic Other nutritional; endocrine; and metabolic disorders (1 source) Finding of body mass index; Translations: [Body mass index (observable entity)] Onset: 4 Episodic Other screening for suspected conditions (not mental disorders or infectious disease) (5 sources) Patient encounter status; Translations: [Encounter for screening mammogram for malignant neoplasm of breast] Onset: 4 Episodic Other upper respiratory infections (1 source) Acute pharyngitis, unspecified; Translations: [ACUTE PHARYNGITIS UNSPECIFIED] Onset: 2 Episodic Peripheral and visceral atherosclerosis (20 sources) Peripheral vascular disease; Translations: [Atherosclerosis of [place] arteries of extremities with intermittent claudication, unspecified extremity] Onset: 9 07-26-2018 Chronic Residual codes; unclassified (1 source) Tobacco user; Translations: [Tobacco use] Episodic Residual codes; unclassified (1 source) Pain, unspecified; Translations: [PAIN UNSPECIFIED] Onset: 2 Episodic Thyroid disorders (1 source) Nontoxic single thyroid nodule; Translations: [Thyroid nodule greater than or equal to 1.5 cm in diameter incidentally noted on imaging study] Onset: 4 Chronic Unclassified (2 sources) Unknown / UNK(Unknown) Onset: 7 Unclassified (3 sources) COUGH, UNSPECIFIED; Translations: [COUGH, UNSPECIFIED] Onset: 2 Unclassified (1 source) APPOINTMENT CANCELLED 01-14-2023 Past or Other Problems Problem Classification Problem Date Documented Da te Episodic/Chronic Crushing injury or internal injury (20 sources) Perinephric hematoma; Translations: [Minor contusion of unspecified kidney, initial encounter] Onset: 07-21-2018 07-26-2018 Episodic Other non-traumatic joint disorders (20 sources) Hip pain; Translations: [Pain in right hip] Onset: 04-20-2016 04-20-2016 Episodic Pancreatic disorders (not diabetes) (20 sources) Cyst of pancreas; Translations: [Cyst of pancreas] Onset: 01-29-2016 01-29-2016 Episodic Phlebitis; thrombophlebitis and thromboembolism (3 sources) Acute deep vein thrombosis of lower limb; Translations: [Acute embolism and thrombosis of unspecified deep veins of right distal lower extremity] Onset: 08-19-2015 05-18-2023 Episodic Screening and history of mental health and substance abuse codes (20 sources) Ex-smoker; Translations: [Personal history of nicotine dependence] Onset: 03-10-2016 04-12-2019 Episodic Spondylosis; intervertebral disc disorders; other back problems (20 sources) Chronic thoracic back pain; Translations: [Pain in thoracic spine] Onset: 02-17-2016 02-17-2016 Episodic Sprains and strains (4 sources) Sprain of ligaments of cervical spine, subsequent encounter; Translations: [SPRAIN OF LIGAMENTS OF CERVICAL SPINE, SUBSEQUENT ENCOUNTER] Onset: 09-30-2016 Episodic Unclassified (1 source) COUGH, UNSPECIFIED; Translations: [COUGH, UNSPECIFIED] Onset: 02-23-2022 Results Test Name Value Interpretation Reference Range Facility Brain Natri. Peptideon 05-18 Natriuretic peptide B (Bld) [Mass/Vol] 3604 pg/mL High <300 [facility] Comment on above: Result Comment: An age-independent cutoff point of 300 pg/ml has a 98% negative predictive value excluding acute heart failure. Performed By: #### C DP, CMPX, BNP #### [facility] [address] [place] [address] Flarer: Daniella Lott MD #### GLYHGB #### [facility] [address] [place] [address] Flarer: Jere Mas MD Brain Natriuretic Peptideon 05-19-2023 Natriuretic peptide B (Bld) [Mass/Vol] 3604 pg/mL High NINF - 300 pg/mL [facility] Comment on above: An age-independent cutoff point of 300 pg/ml has a 98% negative predictive value excluding acute heart failure. CBC auto differentialon 04-29 Basophils (Bld) [#/Vol] [facility] Basophils/100 WBC (Bld) 0 % 0 - 2 % [facility] Eosinophils (Bld) [#/Vol] 0.27 10*3/uL [facility] Eosinophils/100 WBC (Bld) 4 % 1 - 4 % [facility] Erythrocyte distribution width (RBC) [Ratio] 13.5 % 11.8 - 14.4 % [facility] Hematocrit (Bld) [Volume fraction] 29.4 % Low 36.3 - 47.1 % [facility] Hemoglobin (Bld) [Mass/Vol] 9.5 g/dL Low 11.9 - 15.1 g/dL [facility] Immature granulocytes (Bld) [#/Vol] 0.03 10*3/uL [facility] Immature granulocytes/100 WBC (Bld) 0 % 0 [facility] Interpretation and review of laboratory results Abnormal [facility] Lymphocytes/100 WBC (Bld) 22 % Low 24 - 43 % [facility] Lymphocytes/100 WBC (Bld) 1.54 % [facility] MCH (RBC) [Entitic mass] 31.0 pg 25.2 - 33.5 pg [facility] MCHC (RBC) [Mass/Vol] 32.3 g/dL 28.4 - 34.8 g/dL [facility] MCV (RBC) [Entitic vol] 96.1 fL 82.6 - 102.9 fL [facility] Monocytes/100 WBC (Bld) 10 % 3 - 12 % [facility] Monocytes/100 WBC (Bld) 0.74 % [facility] Neutrophils/100 WBC (Bld) 64 % 36 - 65 % [facility] Nucleated RBC/100 WBC (Bld) [Ratio] 0.0 % 0.0 per 100 WBC [facility] Platelet mean volume (Bld) [Entitic vol] 10.1 fL 8.1 - 13.5 fL [facility] Platelets (Bld) [#/Vol] 125 10*3/uL Low [facility] RBC (Bld) [#/Vol] 3.06 10*6/uL Low 3.95 - 5.1 1 m/uL [facility] Segmented neutrophils/100 WBC (Bld) 4.57 % [facility] WBC other (Bld) [#/Vol] 7.2 [facility] CBC with Diffon 05-19-2023 Abs. Basophil <0.03 Normal 0.00-0.20 [facility] Comment on above: Performed By: #### C DP, CMPX, BNP #### [address] [place] [phone] Flarer: Daniella Lott MD #### GLYHGB #### [place] [id number] Flarer: Jere Mas MD Abs.Imm.Granulocyt e 0.03 k/uL Normal 0.00-0.30 [facility] Comment on above: Performed By: #### C DP, CMPX, BNP #### [address] [place] [phone] Flarer: Daniella Lott MD #### GLYHGB #### [place] [address] Flarer: Jere Mas MD Abs.Neutrophil (Seg) 4.57 k/uL Normal 1.50-8.10 [facility] Comment on above: Performed By: #### C DP, CMPX, BNP #### [address] [place] [id number] Flarer: Daniella Lott MD #### GLYHGB #### [place] [address] Flarer: Jere Mas MD Basophils/100 WBC (Bld) 0 % Normal 0-2 [facility] Comment on above: Performed By: #### C DP, CMPX, BNP #### [address] [place] [phone] Flarer: Daniella Lott MD #### GLYHGB #### [place] [phone] [place], [place] [phone] Flarer: Jere Mas MD Eosinophils (Bld) [#/Vol] 0.27 10*3/uL Normal 0.00-0.44 [facility] Comment on above: Performed By: #### C DP, CMPX, BNP #### [address] [place] [phone] Flarer: Daniella Lott MD #### GLYHGB #### [place] [address] Flarer: Jere Mas MD Eosinophils/100 WBC (Bld) 4 % Normal 1-4 [facility] Comment on above: Performed By: #### C DP, CMPX, BNP #### [address] [place] [address] Flarer: Daniella Lott MD #### GLYHGB #### [place] [address] Flarer: Jere Mas MD Erythrocyte distribution width (RBC) [Ratio] 13.5 % Normal 11.8-14.4 [facility] Comment on above: Performed By: #### C DP, CMPX, BNP #### [address] [place] [phone] Flarer: Daniella Lott MD #### GLYHGB #### [place] [id number] Flarer: Jere Mas MD Hematocrit (Bld) [Volume fraction] 29.4 % Low 36.3-47.1 [facility] Comment on above: Performed By: #### C DP, CMPX, BNP #### [address] [place] [phone] Flarer: Daniella Lott MD #### GLYHGB #### [place] 076[address] [place], [place] [phone] Flarer: Jere Mas MD Hemoglobin (Bld) [Mass/Vol] 9.5 g/dL Low 11.9-15.1 [facility] Comment on above: Performed By: #### C DP, CMPX, BNP #### [facility] [address] [place] [address] Dr. [place] [phone] Flarer: Daniella Lott MD #### GLYHGB #### [place] [phone] Flarer: Jere Mas MD Immature granulocytes/100 WBC (Bld) 0 % Normal 0 [facility] Comment on above: Performed By: #### C DP, CMPX, BNP #### [address] [place] [phone] Flarer: Daniella Lott MD #### GLYHGB #### [place] [phone] Flarer: Jere Mas MD Lymphocytes (Bld) [#/Vol] 1.54 10*3/uL Normal 1.10-3.70 [facility] Comment on above: Performed By: #### C DP, CMPX, BNP #### [address] [place] [phone] Flarer: Daniella Lott MD #### GLYHGB #### [place] 076645 [place] [phone] Flarer: Jere Mas MD Lymphocytes/100 WBC (Bld) 22 % Low 24-43 [facility] Comment on above: Performed By: #### C DP, CMPX, BNP #### [facility] [address] [place] [address] Dr. [place] [phone] Flarer: Daniella Lott MD #### GLYHGB #### [place] 076649 [place], [place] [phone] Flarer: Jere Mas MD MCH (RBC) [Entitic mass] 31.0 pg Normal 25.2-33.5 [facility] Comment on above: Performed By: #### C DP, CMPX, BNP #### [address] [place] [phone] Flarer: Daniella Lott MD #### GLYHGB #### [place] [phone] Flarer: Jere Mas MD MCHC (RBC) [Mass/Vol] 32.3 g/dL Normal 28.4-34.8 [facility] Comment on above: Performed By: #### C DP, CMPX, BNP #### [address] [place] [phone] Flarer: Daniella Lott MD #### GLYHGB #### [place] [address] Flarer: Jere Mas MD MCV (RBC) [Entitic vol] 96.1 fL Normal 82.6-102.9 [facility] Comment on above: Performed By: #### C DP, CMPX, BNP #### [address] [place] [phone] Flarer: Daniella Lott MD #### GLYHGB #### [place] [phone] Flarer: Jere Mas MD Monocytes (Bld) [#/Vol] 0.74 10*3/uL Normal 0.10-1.20 [facility] Comment on above: Performed By: #### C DP, CMPX, BNP #### [address] [place] [phone] Flarer: Daniella Lott MD #### GLYHGB #### [address] [phone] Flarer: Jere Mas MD Monocytes/100 WBC (Bld) 10 % Normal 3-12 [facility] Comment on above: Performed By: #### C DP, CMPX, BNP #### [facility] [address] [place] [address] Dr. [place] [phone] Flarer: Daniella Lott MD #### GLYHGB #### [place] [phone] Flarer: Jere Mas MD Neutrophil (Seg) 64 % Normal 36-65 [facility] Comment on above: Performed By: #### C DP, CMPX, BNP #### [address] [place] [phone] Flarer: Daniella Lott MD #### GLYHGB #### [place] [address] Flarer: Jere Mas MD NRBC Automated 0.0 per 100 WBC Normal 0.0 [facility] Comment on above: Performed By: #### C DP, CMPX, BNP #### [address] [place] [phone] Flarer: Daniella Lott MD #### GLYHGB #### [place] [address] Flarer: Jere Mas MD Platelet mean volume (Bld) [Entitic vol] 10.1 fL Normal 8.1-13.5 [facility] Comment on above: Performed By: #### C DP, CMPX, BNP #### [address] [place] [phone] Flarer: Daniella Lott MD #### GLYHGB #### [facility] [address] [place], [place] [phone] Flarer: Jere Mas MD Platelets (Bld) [#/Vol] 125 10*3/uL Low 138-453 [facility] Comment on above: Performed By: #### C DP, CMPX, BNP #### [facility] [address] [place] [address] [place] [phone] ( Flarer: Daniella Lott MD #### GLYHGB #### [place] [phone] Flarer: Jere Mas MD RBC (Bld) [#/Vol] 3.06 10*6/uL Low 3.95-5.11 [facility] Comment on above: Performed By: #### C DP, CMPX, BNP #### [address] [place] [phone] ( Flarer: Daniella Lott MD #### GLYHGB #### [place] [address] Flarer: Jere Mas MD WBC (Bld) [#/Vol] 7.2 10*3/uL Normal 3.5-11.3 [facility] Comment on above: Performed By: #### C DP, CMPX, BNP #### [address] [place] [phone] ( Flarer: Daniella Lott MD #### GLYHGB #### [place] [address] Flarer: Jere Mas MD Comp Metabolic Pr/rfx MGon 0 - Albumin [Mass/Vol] 2.9 g/dL Low 3.5-5.2 [facility] Comment on above: Performed By: #### C DP, CMPX, BNP #### [address] [place], [place] [phone] Flarer: Daniella Lott MD #### GLYHGB #### [place] [address] [place], [place] [phone] Flarer: Jere Mas MD Albumin/Glob Ratio 1.2 Normal 1.0-2.5 [facility] Comment on above: Performed By: #### C DP, CMPX, BNP #### [facility] [address] [place] [address] Dr. [place], [place] [phone] Flarer: Daniella Lott MD #### GLYHGB #### [address] [phone] Flarer: Jere Mas MD Alkaline Phos 59 U/L Normal 35-104 [facility] Comment on above: Performed By: #### C DP, CMPX, BNP #### [address] [place], [place] [phone] Flarer: Daniella Lott MD #### GLYHGB #### [address] [address] Flarer: Jere Mas MD ALT [Catalytic activity/Vol] 5 U/L Normal 5-33 [facility] Comment on above: Performed By: #### C DP, CMPX, BNP #### [address] [place], [place] [phone] Flarer: Daniella Lott MD #### GLYHGB #### [place] [address] [place] [address] Flarer: Jere Mas MD Anion gap [Moles/Vol] 8 mmol/L Low 9-17 [facility] Comment on above: Performed By: #### C DP, CMPX, BNP #### [address] [place], [place] [phone] Flarer: Daniella Lott MD #### GLYHGB #### [place] [address] [place], [place] [phone] Flarer: Jere Mas MD AST [Catalytic activity/Vol] 12 U/L Normal <32 [facility] Comment on above: Performed By: #### C DP, CMPX, BNP #### [facility] [address] [place], [place] [phone] Flarer: Daniella Lott MD #### GLYHGB #### [address] [phone] Flarer: Jere Mas MD Bilirubin [Mass/Vol] 0.5 mg/dL Normal 0.3-1.2 [facility] Comment on above: Performed By: #### C DP, CMPX, BNP #### [facility] [address] [place] [address] Dr. [place] [phone] Flarer: Daniella Lott MD #### GLYHGB #### [address] [phone] Flarer: Jere Mas MD BUN/CRE Ratio 19 Normal 9-20 [facility] Comment on above: Performed By: #### C DP, CMPX, BNP #### [facility] [address] [place] [address] Dr. [place], [place] [phone] Flarer: Daniella Lott MD #### GLYHGB #### [address] [phone] Flarer: Jere Mas MD Calcium [Mass/Vol] 7.8 mg/dL Low 8.6-10.4 [facility] Comment on above: Performed By: #### C DP, CMPX, BNP #### [facility] [address] [place] [address] Dr. [place], [place] [phone] Flarer: Daniella Lott MD #### GLYHGB #### [facility] [address] [place], [place] [phone] Flarer: Jere Mas MD Chloride [Moles/Vol] 101 mmol/L Normal 98-107 [facility] Comment on above: Performed By: #### C DP, CMPX, BNP #### [facility] [address] [place], [place] [phone] Flarer: Daniella Lott MD #### GLYHGB #### [place] [address] [place], [place] [phone] Flarer: Jere Mas MD CO2 [Moles/Vol] 23 mmol/L Normal 20-31 [facility] Comment on above: Performed By: #### C DP, CMPX, BNP #### [facility] [address] [place], [place] [phone] Flarer: Daniella Lott MD #### GLYHGB #### [place] [address] [place] [address] Flarer: Jere Mas MD Creatinine [Mass/Vol] 1.4 mg/dL High 0.5-0.9 [facility] Comment on above: Performed By: #### C DP, CMPX, BNP #### [facility] [address] [facility] [place] [address] Flarer: Daniella Lott MD #### GLYHGB #### [place] [address] [place], [place] [phone] Flarer: Jere Mas MD GFR/1.73 sq M.predicted among non-blacks MDRD (S/P/Bld) [Vol rate/Area] 40 mL/min/{1.73_m2} Low >60 [facility] Comment on above: Result Comment: These results are not intended for use in patients <18 years of age. eGFR results are calculated without a race factor using the 2020 CKD-EPI equation. Careful clinical correlation is recommended, particularly when comparing to results calculated using previous equations. The CKD-EPI equation is less accurate in patients with extremes of muscle mass, extra-renal metabolism of creatine, excessive creatine ingestion, or following therapy that affects renal tubular secretion. Performed By: #### C DP, CMPX, BNP #### [facility] [address] [place] [address] Dr. [place], [place] [phone] Flarer: Daniella Lott MD #### GLYHGB #### [address] [phone] Flarer: Jere Mas MD Glucose [Mass/Vol] 97 mg/dL Normal 70-99 [facility] Comment on above: Performed By: #### C DP, CMPX, BNP #### [address] [place] [address] Flarer: Daniella Lott MD #### GLYHGB #### [address] [phone] Flarer: Jere Mas MD Potassium [Moles/Vol] 3.9 mmol/L Normal 3.7-5.3 [facility] Comment on above: Performed By: #### C DP, CMPX, BNP #### [address] [place] [address] Flarer: Daniella Lott MD #### GLYHGB #### [address] [address] Flarer: Jere Mas MD Protein [Mass/Vol] 5.4 g/dL Low 6.4-8.3 [facility] Comment on above: Performed By: #### C DP, CMPX, BNP #### [address] [place], [place] [phone] Flarer: Daniella Lott MD #### GLYHGB #### [address] [address] Flarer: Jere Mas MD Sodium [Moles/Vol] 132 mmol/L Low 135-144 [facility] Comment on above: Performed By: #### C DP, CMPX, BNP #### [facility] [address] [place] [address] Flarer: Daniella Lott MD #### GLYHGB #### [facility] [address] [place] [address] Flarer: Jere Mas MD Urea nitrogen [Mass/Vol] 27 mg/dL High 8-23 [facility] Comment on above: Performed By: #### C DP, CMPX, BNP #### [facility] [address] [place] [address] Flarer: Daniella Lott MD #### GLYHGB #### [place] [address] [place] [address] Flarer: Jere Mas MD Comprehensive Metabolic Pane l w/ Reflex to MGon 05-19-2023 Albumin [Mass/Vol] 2.9 g/dL Low 3.5 - 5.2 g/dL [facility] Albumin/Globulin [Mass ratio] 1.2 {ratio} 1.0 - 2.5 [facility] ALP [Catalytic activity/Vol] 59 U/L 35 - 104 U/L [facility] ALT [Catalytic activity/Vol] 5 U/L 5 - 33 U/L [facility] Anion gap [Moles/Vol] 8 mmol/L Low 9 - 17 mmol/L [facility] AST [Catalytic activity/Vol] 12 U/L NINF - 32 U/L [facility] Bilirubin [Mass/Vol] 0.5 mg/dL 0.3 - 1.2 mg/dL [facility] Calcium [Mass/Vol] 7.8 mg/dL Low 8.6 - 10. 4 mg/dL [facility] Chloride [Moles/Vol] 101 mmol/L 98 - 107 mmol/L [facility] CO2 [Moles/Vol] 23 mmol/L 20 - 31 mmol/L [facility] Creatinine [Mass/Vol] 1.4 mg/dL High 0.5 - 0.9 mg/dL [facility] GFR/1.73 sq M.predicted MDRD (S/P/Bld) [Vol rate/Area] 40 mL/min/{1.73_m2} Low - PINF [facility] Comment on above: These results are not intended for use in patients <18 years of age. eGFR results are calculated without a race factor using the 2020 CKD-EPI equation. Careful clinical correlation is recommended, particularly when comparing to results calculated using previous equations. The CKD-EPI equation is less accurate in patients with extremes of muscle mass, extra-renal metabolism of creatine, excessive creatine ingestion, or following therapy that affects renal tubular secretion. Glucose [Mass/Vol] 97 mg/dL 70 - 99 mg/dL [facility] Potassium [Moles/Vol] 3.9 mmol/L 3.7 - 5.3 mmol/L [facility] Protein [Mass/Vol] 5.4 g/dL Low 6.4 - 8.3 g/dL [facility] Sodium [Moles/Vol] 132 mmol/L Low 135 - 144 mmol/L [facility] Urea nitrogen [Mass/Vol] 27 mg/dL High 8 - 23 mg/dL [facility] Urea nitrogen/Creatinin e [Mass ratio] 19 mg/mg 9 - 20 [facility] Cult,Urineon 05-19-2023 Cult,Urine Specimen Description .CLEAN CATCH URINE Culture NO GROWTH Report Status FINAL 05/19/2023 Normal [facility] Comment on above: Performed By: #### U RC #### [facility] [email or web address] [address] [place] [address] Flarer: Jere Mas MD [facility] [address] [place] [address] Flarer: Daniella Lott MD EKG 12 Leadon 05-19-2023 Atrial Rate 104 BPM [facility] Q-T Interval 310 ms [facility] QRS Duration 80 ms [facility] QTc Calculation (Bazett) 466 ms [facility] R Cardwell 14 degrees [facility] T Cardwell -3 degrees [facility] Ventricular Rate 136 BPM [facility] Atrial fibrillation with rapid ventricular response Abnormal ECG When compared with ECG of 17-MAY-2023 16:19, Atrial fibrillation has replaced Sinus rhythm Vent. rate has increased BY 61 BPM Nonspecific T wave abnormality, worse in Inferior leads Confirmed by LAVERNE SILVESTRE ([id number]) on 05/19/2023 12:43:09 AM [facility] Laverne Silvestre MD - 05/19/2023 Atrial fibrillation with rapid ventricular response Abnormal ECG When compared with ECG of 17-MAY-2023 16:19, Atrial fibrillation has replaced Sinus rhythm Vent. rate has increased BY 61 BPM Nonspecific T wave abnormality, worse in Inferior leads Confirmed by LAVERNE SILVESTRE ([id number]) on 05/19/2023 12:43:09 AM [facility] Atrial Rate 73 BPM [facility] P Cardwell 61 degrees [facility] P-R Interval 144 ms [facility] Q-T Interval 372 ms [facility] QRS Duration 86 ms [facility] QTc Calculation (Bazett) 409 ms [facility] R Cardwell 42 degrees [facility] T Cardwell 35 degrees [facility] Ventricular Rate 73 BPM [facility] Normal sinus rhythm Normal ECG When compared with ECG of 18-MAY-2023 15:47, (unconfirmed) Sinus rhythm has replaced Atrial fibrillation Vent. rate has decreased BY 63 BPM Nonspecific T wave abnormality, improved in Inferior leads Confirmed by LAVERNE SILVESTRE ([id number]) on 05/19/2023 12:38:02 AM [facility] Laverne Silvestre MD - 05/19/2023 Normal sinus rhythm Normal ECG When compared with ECG of 18-MAY-2023 15:47, (unconfirmed) Sinus rhythm has replaced Atrial fibrillation Vent. rate has decreased BY 63 BPM Nonspecific T wave abnormality, improved in Inferior leads Confirmed by LAVERNE SILVESTRE ([id number]) on 05/19/2023 12:38:02 AM [facility] EKG Rhythm Stripon [facility] Hemoglobin A1Con 05-19-2023 Glucose [Mass/Vol] 88 mg/dL Normal [facility] Comment on above: Result Comment: The ADA and AACC recommend providing the estimated average glucose result to permit better patient understanding of their HBA1c result. Performed By: #### C DP CMPX, BNP #### [facility] [address] [place], [place] [phone] Flarer: Daniella Lott MD #### GLYHGB #### [address] [address] Flarer: Jere Mas MD HbA1c (Bld) [Mass fraction] 4.7 % Normal 4.0-6.0 [facility] Comment on above: Performed By: #### C JULISA CMPX, BNP #### [facility] [address] [place], [place] [phone] Flarer: Daniella Lott MD #### GLYHGB #### [address] [address] Flarer: Jere Mas MD Lipid Profileon 05-19-2023 Cholesterol [Mass/Vol] 88 mg/dL Normal 0-199 [facility] Comment on above: Result Comment: Cholesterol Guidelines: <200 Desirable 200-240 Borderline >240 Undesirable Performed By: #### L IPR #### [facility] [address] [place] [address] Flarer: Jere Mas MD Cholesterol in HDL [Mass/Vol] 37 mg/dL Low >40 [facility] Comment on above: Result Comment: HDL Guidelines: <40 Undesirable 40-59 Borderline >59 Desirable Performed By: #### L IPR #### [facility] [address] [place] [address] Flarer: Jere Mas MD Cholesterol in LDL [Mass/Vol] 41 mg/dL Normal 0-100 [facility] Comment on above: Result Comment: LDL Guidelines: <100 Desirable 100-129 Near to/above Desirable 130-159 Borderline >159 Undesirable Direct (measured) LDL and calculated LDL are not interchangeable tests. Performed By: #### L IPR #### [facility] [place] [address] Flarer: Jere Mas MD Cholesterol in VLDL [Mass/Vol] 10 mg/dL Normal [facility] Comment on above: Performed By: #### L IPR #### [facility] [facility] [place] [address] Flarer: Jere Mas MD Cholesterol.total/ Cholesterol in HDL [Mass ratio] 2.0 {ratio} Normal [facility] Comment on above: Performed By: #### L IPR #### [facility] [facility] [place] [address] Flarer: Jere Mas MD Triglyceride [Mass/Vol] 51 mg/dL Normal <150 [facility] Comment on above: Result Comment: Triglyceride Guidelines: <150 Desirable 150-199 Borderline 200-499 High >499 Very high Based on AHA Guidelines for fasting triglyceride, November 2011. Performed By: #### L IPR #### [employer] [address] [place] [id number] Flarer: Jere Mas MD No Panel Informationon 05-18 Interpretation and review of laboratory results Abnormal [facility] CBC auto differentialon 04-29 Basophils (Bld) [#/Vol] 0.03 10*3/uL [facility] Basophils/100 WBC (Bld) 1 % 0 - 2 % [facility] Eosinophils (Bld) [#/Vol] 0.06 10*3/uL [facility] Eosinophils/100 WBC (Bld) 1 % 1 - 4 % [facility] Erythrocyte distribution width (RBC) [Ratio] 13.5 % 11.8 - 14.4 % [facility] Hematocrit (Bld) [Volume fraction] 31.5 % Low 36.3 - 47.1 % [facility] Hemoglobin (Bld) [Mass/Vol] 10.1 g/dL Low 11.9 - 15.1 g/dL [facility] Immature granulocytes (Bld) [#/Vol] [facility] Immature granulocytes/100 WBC (Bld) 0 % 0 [facility] Interpretation and review of laboratory results Abnormal [facility] Lymphocytes/100 WBC (Bld) 27 % 24 - 43 % [facility] Lymphocytes/100 WBC (Bld) 1.53 % [facility] MCH (RBC) [Entitic mass] 31.6 pg 25.2 - 33.5 pg [facility] MCHC (RBC) [Mass/Vol] 32.1 g/dL 28.4 - 34.8 g/dL [facility] MCV (RBC) [Entitic vol] 98.4 fL 82.6 - 102.9 fL [facility] Monocytes/100 WBC (Bld) 11 % 3 - 12 % [facility] Monocytes/100 WBC (Bld) 0.65 % [facility] Neutrophils/100 WBC (Bld) 60 % 36 - 65 % [facility] Nucleated RBC/100 WBC (Bld) [Ratio] 0.0 % 0.0 per 100 WBC [facility] Platelet mean volume (Bld) [Entitic vol] 10.1 fL 8.1 - 13.5 fL [facility] Platelets (Bld) [#/Vol] 138 10*3/uL [facility] RBC (Bld) [#/Vol] 3.20 10*6/uL Low 3.95 - 5.1 1 m/uL [facility] Segmented neutrophils/100 WBC (Bld) 3.48 % [facility] WBC other (Bld) [#/Vol] 5.8 [facility] CBC with Diffon 05-18-2023 Abs. Basophil 0.03 k/uL Normal 0.00-0.20 [facility] Comment on above: Performed By: #### U LADONNA CARRILLO #### [facility] [address] [place] [address] Dr. [place], [place] [phone] Flarer: Daniella Lott MD Abs.Imm.Granulocyt e <0.03 Normal 0.00-0.30 [facility] Comment on above: Performed By: #### U MICAO, UAX #### [address] [place] [phone] Flarer: Daniella Lott MD Abs.Neutrophil (Seg) 3.48 k/uL Normal 1.50-8.10 [facility] Comment on above: Performed By: #### U MICAO, UAX #### [address] [place] [phone] Flarer: Daniella Lott MD Basophils/100 WBC (Bld) 1 % Normal 0-2 [facility] Comment on above: Performed By: #### U MICAO, UAX #### [address] [place], [facility]83 Flarer: Daniella Lott MD Eosinophils (Bld) [#/Vol] 0.06 10*3/uL Normal 0.00-0.44 [facility] Comment on above: Performed By: #### U MICAO, UAX #### [address] [place], [facility]83 Flarer: Daniella Lott MD Eosinophils/100 WBC (Bld) 1 % Normal 1-4 [facility] Comment on above: Performed By: #### U MICAO, UAX #### [address] [place] [address] Flarer: Daniella Lott MD Erythrocyte distribution width (RBC) [Ratio] 13.5 % Normal 11.8-14.4 [facility] Comment on above: Performed By: #### U MICAO, UAX #### [address] [place] [id number] Flarer: Daniella Lott MD Hematocrit (Bld) [Volume fraction] 31.5 % Low 36.3-47.1 [facility] Comment on above: Performed By: #### U MICAO, UAX #### [facility] [address] [place], [place] [phone] Flarer: Daniella Lott MD Hemoglobin (Bld) [Mass/Vol] 10.1 g/dL Low 11.9-15.1 [facility] Comment on above: Performed By: #### U MICAO, UAX #### [facility] [address] [place] [phone] Flarer: Daniella Lott MD Immature granulocytes/100 WBC (Bld) 0 % Normal 0 [facility] Comment on above: Performed By: #### U MICAO, UAX #### [facility] [address] [place], [facility]83 Flarer: Daniella Lott MD Lymphocytes (Bld) [#/Vol] 1.53 10*3/uL Normal 1.10-3.70 [facility] Comment on above: Performed By: #### U MICAO, UAX #### [facility] [address] [place], [facility]83 Flarer: Daniella Lott MD Lymphocytes/100 WBC (Bld) 27 % Normal 24-43 [facility] Comment on above: Performed By: #### U MICAO, UAX #### [facility] [address] [place], [facility]83 Flarer: Daniella Lott MD MCH (RBC) [Entitic mass] 31.6 pg Normal 25.2-33.5 [facility] Comment on above: Performed By: #### U MICAO, UAX #### [facility] [address] [place], [facility]83 Flarer: Daniella Lott MD MCHC (RBC) [Mass/Vol] 32.1 g/dL Normal 28.4-34.8 [facility] Comment on above: Performed By: #### U LORENA UAX #### [facility] [address] [place], [place] [id number] Flarer: Daniella Lott MD MCV (RBC) [Entitic vol] 98.4 fL Normal 82.6-102.9 [facility] Comment on above: Performed By: #### U LORENA UAX #### [facility] [address] [place], [place] [id number] Flarer: Daniella Lott MD Monocytes (Bld) [#/Vol] 0.65 10*3/uL Normal 0.10-1.20 [facility] Comment on above: Performed By: #### Forrest CARRILLO UAX #### [facility] [address] [place] [address] Flarer: Daniella Lott MD Monocytes/100 WBC (Bld) 11 % Normal 3-12 [facility] Comment on above: Performed By: #### Forrest CARRILLO UAX #### [address] [place], [place] [id number] Flarer: Daniella Lott MD Neutrophil (Seg) 60 % Normal 36-65 [facility] Comment on above: Performed By: #### U LORENA UAX #### [facility] [address] [place], [place] [id number] Flarer: Daniella Lott MD NRBC Automated 0.0 per 100 WBC Normal 0.0 [facility] Comment on above: Performed By: #### U LORENA, UAX #### [facility] [address] [place], [place] [id number] Flarer: Daniella Lott MD Platelet mean volume (Bld) [Entitic vol] 10.1 fL Normal 8.1-13.5 [facility] Comment on above: Performed By: #### U MICAO, UAX #### [facility] [address] [place], [place] [id number] Flarer: Daniella Lott MD Platelets (Bld) [#/Vol] 138 10*3/uL Normal 138-453 [facility] Comment on above: Performed By: #### U MICAO, UAX #### [facility] [address] [place], [place] [id number] Flarer: Daniella Lott MD RBC (Bld) [#/Vol] 3.20 10*6/uL Low 3.95-5.11 [facility] Comment on above: Performed By: #### U MICAO, UAX #### [facility] [address] [place], [place] [id number] Flarer: Daniella Lott MD WBC (Bld) [#/Vol] 5.8 10*3/uL Normal 3.5-11.3 [facility] Comment on above: Performed By: #### U LORENA, UAX #### [address] [place], [place] [id number] Flarer: Daniella Lott MD Comp Metabolic Pr/rfx MGon 0 - Albumin [Mass/Vol] 3.1 g/dL Low 3.5-5.2 [facility] Comment on above: Performed By: #### U MICAO, UAX #### [facility] [address] [place], [place] [id number] Flarer: Daniella Lott MD Albumin/Glob Ratio 1.3 Normal 1.0-2.5 [facility] Comment on above: Performed By: #### U MICAO, UAX #### [facility] [address] [place] [address] Flarer: Daniella Lott MD Alkaline Phos 58 U/L Normal 35-104 [facility] Comment on above: Performed By: #### U MICAO, UAX #### [facility] [address] [place], [place] [id number] Flarer: Daniella Lott MD ALT [Catalytic activity/Vol] 5 U/L Normal 5-33 [facility] Comment on above: Performed By: #### U MICAO, UAX #### [facility] [address] [place], [place] [id number] Flarer: Daniella Lott MD Anion gap [Moles/Vol] 10 mmol/L Normal 9-17 [facility] Comment on above: Performed By: #### U MICAO, UAX #### [facility] [address] [place], [place] [id number] Flarer: Daniella Lott MD AST [Catalytic activity/Vol] 13 U/L Normal <32 [facility] Comment on above: Performed By: #### U MICAO, UAX #### [facility] [address] [place], [place] [address]83 Flarer: Daniella Lott MD Bilirubin [Mass/Vol] 0.6 mg/dL Normal 0.3-1.2 [facility] Comment on above: Performed By: #### U MICAO, UAX #### [facility] [address] [place], [place] 1479683 Flarer: Daniella Lott MD BUN/CRE Ratio 18 Normal 9-20 [facility] Comment on above: Performed By: #### U MICAO, UAX #### [facility] [address] [place] [address] Flarer: Daniella Lott MD Calcium [Mass/Vol] 8.0 mg/dL Low 8.6-10.4 [facility] Comment on above: Performed By: #### U MICAO, UAX #### [facility] [address] [place], [place] 3790383 Flarer: Daniella Lott MD Chloride [Moles/Vol] 104 mmol/L Normal 98-107 [facility] Comment on above: Performed By: #### U MICAO, UAX #### [facility] [address] [place], [place] 555[address]83 Flarer: Daniella Lott MD CO2 [Moles/Vol] 22 mmol/L Normal 20-31 [facility] Comment on above: Performed By: #### U MICAO, UAX #### [facility] [address] [place] [id number] Flarer: Daniella Lott MD Creatinine [Mass/Vol] 1.3 mg/dL High 0.5-0.9 [facility] Comment on above: Performed By: #### Forrest CARRILLO, UAX #### [facility] [address] [place], [place] [id number] Flarer: Daniella Lott MD GFR/1.73 sq M.predicted among non-blacks MDRD (S/P/Bld) [Vol rate/Area] 44 mL/min/{1.73_m2} Low >60 [facility] Comment on above: Result Comment: These results are not intended for use in patients <18 years of age. eGFR results are calculated without a race factor using the 2020 CKD-EPI equation. Careful clinical correlation is recommended, particularly when comparing to results calculated using previous equations. The CKD-EPI equation is less accurate in patients with extremes of muscle mass, extra-renal metabolism of creatine, excessive creatine ingestion, or following therapy that affects renal tubular secretion. Performed By: #### U KIKIO, UAX #### [facility] [address] [place] [address] Flarer: Daniella Lott MD Glucose [Mass/Vol] 83 mg/dL Normal 70-99 [facility] Comment on above: Performed By: #### U KIKIO, UAX #### [facility] [address] [place] [address] Flarer: Daniella Lott MD Potassium [Moles/Vol] 4.1 mmol/L Normal 3.7-5.3 [facility] Comment on above: Performed By: #### U MICAO, UAX #### [facility] [address] [place] [address] Flarer: Daniella Lott MD Protein [Mass/Vol] 5.4 g/dL Low 6.4-8.3 [facility] Comment on above: Performed By: #### U KIKIO, UAX #### [facility] [address] [place] [address] Flarer: Daniella Lott MD Sodium [Moles/Vol] 136 mmol/L Normal 135-144 [facility] Comment on above: Performed By: #### U LORENA, UAX #### [facility] [address] [place] [address] Flarer: Daniella Lott MD Urea nitrogen [Mass/Vol] 23 mg/dL Normal 8-23 [facility] Comment on above: Performed By: #### U KIKIO, UAX #### [address] [place] [address] Flarer: Daniella Lott MD Comprehensive Metabolic Pane l w/ Reflex to MGon 05-18-2023 Albumin [Mass/Vol] 3.1 g/dL Low 3.5 - 5.2 g/dL [facility] Albumin/Globulin [Mass ratio] 1.3 {ratio} 1.0 - 2.5 [facility] ALP [Catalytic activity/Vol] 58 U/L 35 - 104 U/L [facility] ALT [Catalytic activity/Vol] 5 U/L 5 - 33 U/L [facility] Anion gap [Moles/Vol] 10 mmol/L 9 - 17 mmol/L [facility] AST [Catalytic activity/Vol] 13 U/L NINF - 32 U/L [facility] Bilirubin [Mass/Vol] 0.6 mg/dL 0.3 - 1.2 mg/dL [facility] Calcium [Mass/Vol] 8.0 mg/dL Low 8.6 - 10. 4 mg/dL [facility] Chloride [Moles/Vol] 104 mmol/L 98 - 107 mmol/L [facility] CO2 [Moles/Vol] 22 mmol/L 20 - 31 mmol/L [facility] Creatinine [Mass/Vol] 1.3 mg/dL High 0.5 - 0.9 mg/dL [facility] GFR/1.73 sq M.predicted MDRD (S/P/Bld) [Vol rate/Area] 44 mL/min/{1.73_m2} Low - PINF [facility] Comment on above: These results are not intended for use in patients <18 years of age. eGFR results are calculated without a race factor using the 2020 CKD-EPI equation. Careful clinical correlation is recommended, particularly when comparing to results calculated using previous equations. The CKD-EPI equation is less accurate in patients with extremes of muscle mass, extra-renal metabolism of creatine, excessive creatine ingestion, or following therapy that affects renal tubular secretion. Glucose [Mass/Vol] 83 mg/dL 70 - 99 mg/dL [facility] Interpretation and review of laboratory results Abnormal [facility] Potassium [Moles/Vol] 4.1 mmol/L 3.7 - 5.3 mmol/L [facility] Protein [Mass/Vol] 5.4 g/dL Low 6.4 - 8.3 g/dL [facility] Sodium [Moles/Vol] 136 mmol/L 135 - 144 mmol/L [facility] Urea nitrogen [Mass/Vol] 23 mg/dL 8 - 23 mg/dL [facility] Urea nitrogen/Creatinin e [Mass ratio] 18 mg/mg 9 - 20 [facility] EKG 12 LeadOrdered By: Adam Silvestre on 05-18-2023 Atrial Rate 58 BPM [facility] Work Phone: P Cardwell 69 degrees [facility] Work Phone: P-R Interval 140 ms [facility] Work Phone: Q-T Interval 418 ms [facility] Work Phone: QRS Duration 82 ms [facility] Work Phone: QTc Calculation (Bazett) 410 ms [facility] Work Phone: R Cardwell 43 degrees [facility] Work Phone: T Cardwell 54 degrees [facility] Work Phone: Ventricular Rate 58 BPM [facility] Work Phone: [facility] Work Phone: EKG 12 Leadon 05-18-2023 Sinus bradycardia Otherwise normal ECG No previous ECGs available Confirmed by LAVERNE SILVESTRE ([id number]) on 05/18/2023 1:01:51 AM [facility] Laverne Silvestre MD - 05/18/2023 Sinus bradycardia Otherwise normal ECG No previous ECGs available Confirmed by LAVERNE SILVESTRE ([id number]) on 05/18/2023 1:01:51 AM [facility] Atrial Rate 75 BPM [facility] P Cardwell 91 degrees [facility] P-R Interval 154 ms [facility] Q-T Interval 380 ms [facility] QRS Duration 86 ms [facility] QTc Calculation (Bazett) 424 ms [facility] R Cardwell 38 degrees [facility] T Cardwell 50 degrees [facility] Ventricular Rate 75 BPM [facility] Normal sinus rhythm Normal ECG When compared with ECG of 17-MAY-2023 11:52, (unconfirmed) No significant change was found Confirmed by LAVERNE SILVESTRE ([id number]) on 05/18/2023 12:57:09 AM [facility] Laverne Silvestre MD - 05/18/2023 Normal sinus rhythm Normal ECG When compared with ECG of 17-MAY-2023 11:52, (unconfirmed) No significant change was found Confirmed by LAVERNE SILVESTRE ([id number]) on 05/18/2023 12:57:09 AM [facility] EKG Rhythm Stripon [facility] MRI ABDOMEN W WO CONTRAST MR CPon 05-18-2023 MRI ABDOMEN W WO CONTRAST MRCP EXAMINATION: MRI OF THE ABDOMEN WITH AND WITHOUT CONTRAST AND MRCP 05/18/2023 12:52 pm TECHNIQUE: Multiplanar multisequence MRI of the abdomen was performed with and without the administration of intravenous contrast. After initial T2 axial and coronal images, thick slab, thin slab and 3D coronal MRCP sequences were obtained without the administration of intravenous contrast. MIP images are provided for review. COMPARISON: CT and ultrasound 05/17/2023. HISTORY: ORDERING SYSTEM PROVIDED HISTORY: Dilated bile duct TECHNOLOGIST PROVIDED HISTORY: Dilated bile duct Decision Support Exception - unselect if not a suspected or confirmed emergency medical condition->Emergency Medical Condition (MA) FINDINGS: Pancreas: Pancreas demonstrates normal signal intensity on precontrast T1 weighted images and enhances homogeneously. Cluster of cysts versus a single cystic lesion collectively measuring up to 1.2 cm in the pancreatic head likely a side branch IPMN. There may be similar appearing lesion more in the body and tail measuring up to 8 mm. No other obvious mass or duct dilation. Biliary system: No cholelithiasis, gallbladder wall thickening or pericholecystic fluid. There is mild intra and extrahepatic biliary duct dilation. The common bile duct measures up to 10 mm. Possible debris within the distal common bile duct without obvious choledocholithiasis. Liver: No abnormal loss of signal intensity of liver parenchyma on the T1 in or out of phase images. No focal hepatic lesion. Kidneys: The kidneys enhance symmetrically. There is a Bosniak type 2 right renal cyst measuring up to 3.4 cm. No hydronephrosis or perinephric stranding. Stable appearance of the left kidney which may be related to prior procedure or scarring. Other: The spleen and adrenal glands are without acute focal abnormality. The abdominal aorta is dilated measuring up to 2.6 cm. The celiac axis and SMA are patent. The portal venous system is patent. No pathologically enlarged adenopathy. Moderate amount of stool in the colon. Duodenal diverticulum is noted. The visualized bowel is otherwise unremarkable. No significant ascites. IMPRESSION: 1. Mild biliary duct dilation with the common bile duct measures up to 10 mm. Possible debris within the distal common bile duct without obvious choledocholithiasis. 2. Scattered cystic lesions within the pancreas the largest measuring up to 1.2 cm likely side branch IPMNs. These can be followed up in 2 years with MRI/MRCP. RECOMMENDATIONS: Right Bosniak I benign renal cyst measuring 3.4 cm. No follow-up imaging is recommended. [employer] 2020; 814-848, Bosniak Classification of Cystic Renal Masses, Version 2019. 2.6 cm abdominal aortic aneurysm suspected. Recommend follow-up every 5 years. Reference: J Am Jabari Radiol 2013;10:789-794. Interpreted by: Daphne Palacios MD Preliminary result Normal [facility] CBC with Auto Differentialon 05-17-2023 Basophils (Bld) [#/Vol] 0.03 10*3/uL [facility] Immature granulocytes (Bld) [#/Vol] [facility] Interpretation and review of laboratory results Abnormal [facility] Lymphocytes/100 WBC (Bld) 1.23 % [facility] Monocytes/100 WBC (Bld) 0.57 % [facility] Neutrophils/100 WBC (Bld) 75 % High 36 - 65 % [facility] Nucleated RBC/100 WBC (Bld) [Ratio] 0.0 % 0.0 per 100 WBC [facility] Segmented neutrophils/100 WBC (Bld) 5.64 % [facility] WBC other (Bld) [#/Vol] 7.6 [facility] CBC with Diffon 05-17-2023 Abs. Basophil 0.03 k/uL Normal 0.00-0.20 [facility] Comment on above: Performed By: #### U LADONNA CARRILLO #### [facility] [address] [place] [address] Flarer: Daniella Lott MD Abs.Imm.Granulocyt e <0.03 Normal 0.00-0.30 [facility] Comment on above: Performed By: #### U MICAO, UAX #### [facility] [address] [place], [place] [address] Flarer: Daniella Lott MD Abs.Neutrophil (Seg) 5.64 k/uL Normal 1.50-8.10 [facility] Comment on above: Performed By: #### U MICAO, UAX #### [facility] [address] [place], [place] [address] Flarer: Daniella Lott MD Lymphocytes (Bld) [#/Vol] 1.23 10*3/uL Normal 1.10-3.70 [facility] Comment on above: Performed By: #### U MICAO, UAX #### [address] [place] [address] Flarer: Daniella Lott MD Monocytes (Bld) [#/Vol] 0.57 10*3/uL Normal 0.10-1.20 [facility] Comment on above: Performed By: #### U MICAO, UAX #### [address] [place], [place] [address] Flarer: Daniella Lott MD Neutrophil (Seg) 75 % High 36-65 [facility] Comment on above: Performed By: #### U MICAO, UAX #### [address] [place], [facility]83 Flarer: Daniella Lott MD NRBC Automated 0.0 per 100 WBC Normal 0.0 [facility] Comment on above: Performed By: #### U MICAO, UAX #### [address] [place], [facility]83 Flarer: Daniella Lott MD WBC (Bld) [#/Vol] 7.6 10*3/uL Normal 3.5-11.3 [facility] Comment on above: Performed By: #### U MICAO, UAX #### [address] [place] [id number] Flarer: Daniella Lott MD Basophils/100 WBC (Bld) 0 % Normal 0-2 [facility] Comment on above: Performed By: #### U MICAO, UAX #### [address] [place] [id number] Flarer: Daniella Lott MD Eosinophils (Bld) [#/Vol] 0.11 10*3/uL Normal 0.00-0.44 [facility] Comment on above: Performed By: #### U LORENA, UAX #### [address] [place] [id number] Flarer: Daniella Lott MD Eosinophils/100 WBC (Bld) 1 % Normal 1-4 [facility] Comment on above: Performed By: #### U LORENA, UAX #### [address] [place] [id number] Flarer: Daniella Lott MD Erythrocyte distribution width (RBC) [Ratio] 13.7 % Normal 11.8-14.4 [facility] Comment on above: Performed By: #### U LORENA, UAX #### [address] [place] [id number] Flarer: Daniella Lott MD Hematocrit (Bld) [Volume fraction] 38.1 % Normal 36.3-47.1 [facility] Comment on above: Performed By: #### U KIKIO, UAX #### [address] [place] [address] Flarer: Daniella Lott MD Hemoglobin (Bld) [Mass/Vol] 11.8 g/dL Low 11.9-15.1 [facility] Comment on above: Performed By: #### U KIKIO, UAX #### [address] [place], [place] [id number] Flarer: Daniella Lott MD Immature granulocytes/100 WBC (Bld) 0 % Normal 0 [facility] Comment on above: Performed By: #### U MICAO, UAX #### [address] [place], [place] [id number] Flarer: Daniella Lott MD Lymphocytes/100 WBC (Bld) 16 % Low 24-43 [facility] Comment on above: Performed By: #### U MICAO, UAX #### [address] [place], [place] [id number] Flarer: Daniella Lott MD MCH (RBC) [Entitic mass] 30.6 pg Normal 25.2-33.5 [facility] Comment on above: Performed By: #### U KIKIO, UAX #### [address] [place], [place] [id number] Flarer: Daniella Lott MD MCHC (RBC) [Mass/Vol] 31.0 g/dL Normal 28.4-34.8 [facility] Comment on above: Performed By: #### U MICAO, UAX #### [address] [place] [address] Flarer: Daniella Lott MD MCV (RBC) [Entitic vol] 99.0 fL Normal 82.6-102.9 [facility] Comment on above: Performed By: #### U MICAO, UAX #### [address] [place], [place] [id number] Flarer: Daniella Lott MD Monocytes/100 WBC (Bld) 8 % Normal 3-12 [facility] Comment on above: Performed By: #### U MICAO, UAX #### [address] [place] [address] Flarer: Daniella Lott MD Platelet mean volume (Bld) [Entitic vol] 9.5 fL Normal 8.1-13.5 [facility] Comment on above: Performed By: #### U MICAO, UAX #### [facility] [address] [place] [id number] Flarer: Daniella Lott MD Platelets (Bld) [#/Vol] 169 10*3/uL Normal 138-453 [facility] Comment on above: Performed By: #### U MICAO, UAX #### [facility] [address] [place] [address] Flarer: Daniella Lott MD RBC (Bld) [#/Vol] 3.85 10*6/uL Low 3.95-5.[address] [facility] Comment on above: Performed By: #### U KIKIO, UAX #### [facility] [address] [place], [place] [id number] Flarer: Daniella Lott MD CT[facility] CTA CHEST ABDOMEN PELVIS W CONTRAST EXAMINATION: CTA OF THE CHEST, ABDOMEN AND PELVIS WITH CONTRAST 05/17/2023 12:29 pm: TECHNIQUE: CTA of the chest, abdomen and pelvis was performed after the administration of intravenous contrast. Multiplanar reformatted images are provided for review. MIP images are provided for review. Automated exposure control, iterative reconstruction, and/or weight based adjustment of the mA/kV was utilized to reduce the radiation dose to as low as reasonably achievable. COMPARISON: None. HISTORY: ORDERING SYSTEM PROVIDED HISTORY: chest pain, into back, previous TX, and also known PVD with aortic stent TECHNOLOGIST PROVIDED HISTORY: chest pain, into back, previous TX, and also known PVD with aortic stent Additional Contrast?->1 FINDINGS: CTA CHEST: Vascular: Mild atherosclerotic disease. No evidence of thoracic aortic aneurysm or dissection. No acute abnormality of the aorta. Satisfactory enhancement of pulmonary arteries showing no filling defects to indicate acute pulmonary embolism. Mediastinum: No evidence of mediastinal lymphadenopathy. The heart and pericardium demonstrate no acute abnormality. Lungs/Pleura: Trace right pleural effusion. Minor subsegmental atelectasis posterior lung bases. Calcified nodules. Segment left lower lobe. No significant lung nodules or masses. No pneumothorax. Soft Tissues/Bones: No acute bone or soft tissue abnormality. Kyphoplasties at T10, T11 and T12. CTA ABDOMEN: Abdominal aorta/Branches: No aneurysm or dissection. Mild atherosclerotic disease. Satisfactory enhancement of celiac trunk, SMA and renal arteries. Organs: Liver, spleen, adrenal glands and gallbladder show no acute process. Exophytic simple cyst 3.6 cm right kidney. No follow-up recommended. There is 13 mm hypodensity in the uncinate process and 7 mm hypodensity in the body. Further workup with non emergency MRI recommended. GI/Bowel: There is limited evaluation due to absence of oral contrast. No bowel obstruction. No acute infective process. Sigmoid diverticulosis. Peritoneum/Retroperiton eum: No free fluid or lymphadenopathy. Bones/Soft Tissues: No acute process. CTA PELVIS: Aorta/Iliacs: Stent in the right common iliac artery. Normal resume a dissection. Other: Unremarkable urinary bladder. Uterus present. Not optimally assessed on this study. Complex appearing lobulated 3.7 cm right adnexal cystic mass. Not optimally assessed on this study. Further evaluation with pelvic ultrasound is recommended. Bones/Soft Tissues: No acute abnormality of the bones. The superficial soft tissues show no acute process. IMPRESSION: 1. No evidence for aortic aneurysm or dissection. 2. There is a stent in the right common iliac artery. 3. No evidence for acute pulmonary embolism. 4. Cystic hypodense nodule in the pancreatic body and uncinate process measuring 7 mm and 13 mm respectively. Recommend further evaluation with non emergency MRI. 5. Complex appearing lobulated 3.7 cm right adnexal cystic mass. Not optimally assessed on this study. Further evaluation with pelvic ultrasound is recommended. Interpreted by: Faisal Treviño MD Signed by: Faisal Treviño MD 05/17/23 Final result Normal [facility] CTA Chest vessels and Abdomi nal vessels and Pelvis vessels W contrast Bre 05-17-2023 1. No evidence for aortic aneurysm or dissection. 2. There is a stent in the right common iliac artery. 3. No evidence for acute pulmonary embolism. 4. Cystic hypodense nodule in the pancreatic body and uncinate process measuring 7 mm and 13 mm respectively. Recommend further evaluation with non emergency MRI. 5. Complex appearing lobulated 3.7 cm right adnexal cystic mass. Not optimally assessed on this study. Further evaluation with pelvic ultrasound is recommended. [facility] [place] [facility] EXAMINATION: CTA OF THE CHEST, ABDOMEN AND PELVIS WITH CONTRAST 05/17/2023 12:29 pm: TECHNIQUE: CTA of the chest, abdomen and pelvis was performed after the administration of intravenous contrast. Multiplanar reformatted images are provided for review. MIP images are provided for review. Automated exposure control, iterative reconstruction, and/or weight based adjustment of the mA/kV was utilized to reduce the radiation dose to as low as reasonably achievable. COMPARISON: None. HISTORY: ORDERING SYSTEM PROVIDED HISTORY: chest pain, into back, previous TX, and also known PVD with aortic stent TECHNOLOGIST PROVIDED HISTORY: chest pain, into back, previous TX, and also known PVD with aortic stent Additional Contrast?->1 FINDINGS: CTA CHEST: Vascular: Mild atherosclerotic disease. No evidence of thoracic aortic aneurysm or dissection. No acute abnormality of the aorta. Satisfactory enhancement of pulmonary arteries showing no filling defects to indicate acute pulmonary embolism. Mediastinum: No evidence of mediastinal lymphadenopathy. The heart and pericardium demonstrate no acute abnormality. Lungs/Pleura: Trace right pleural effusion. Minor subsegmental atelectasis posterior lung bases. Calcified nodules. Segment left lower lobe. No significant lung nodules or masses. No pneumothorax. Soft Tissues/Bones: No acute bone or soft tissue abnormality. Kyphoplasties at T10, T11 and T12. CTA ABDOMEN: Abdominal aorta/Branches: No aneurysm or dissection. Mild atherosclerotic disease. Satisfactory enhancement of celiac trunk, SMA and renal arteries. Organs: Liver, spleen, adrenal glands and gallbladder show no acute process. Exophytic simple cyst 3.6 cm right kidney. No follow-up recommended. There is 13 mm hypodensity in the uncinate process and 7 mm hypodensity in the body. Further workup with non emergency MRI recommended. GI/Bowel: There is limited evaluation due to absence of oral contrast. No bowel obstruction. No acute infective process. Sigmoid diverticulosis. Peritoneum/Retroperiton eum: No free fluid or lymphadenopathy. Bones/Soft Tissues: No acute process. CTA PELVIS: Aorta/Iliacs: Stent in the right common iliac artery. Normal resume a dissection. Other: Unremarkable urinary bladder. Uterus present. Not optimally assessed on this study. Complex appearing lobulated 3.7 cm right adnexal cystic mass. Not optimally assessed on this study. Further evaluation with pelvic ultrasound is recommended. Bones/Soft Tissues: No acute abnormality of the bones. The superficial soft tissues show no acute process. [facility] [place] Faisal Hollis MD - 05/17/2023 EXAMINATION: CTA OF THE CHEST, ABDOMEN AND PELVIS WITH CONTRAST 05/17/2023 12:29 pm: TECHNIQUE: CTA of the chest, abdomen and pelvis was performed after the administration of intravenous contrast. Multiplanar reformatted images are provided for review. MIP images are provided for review. Automated exposure control, iterative reconstruction, and/or weight based adjustment of the mA/kV was utilized to reduce the radiation dose to as low as reasonably achievable. COMPARISON: None. HISTORY: ORDERING SYSTEM PROVIDED HISTORY: chest pain, into back, previous TX, and also known PVD with aortic stent TECHNOLOGIST PROVIDED HISTORY: chest pain, into back, previous TX, and also known PVD with aortic stent Additional Contrast?->1 FINDINGS: CTA CHEST: Vascular: Mild atherosclerotic disease. No evidence of thoracic aortic aneurysm or dissection. No acute abnormality of the aorta. Satisfactory enhancement of pulmonary arteries showing no filling defects to indicate acute pulmonary embolism. Mediastinum: No evidence of mediastinal lymphadenopathy. The heart and pericardium demonstrate no acute abnormality. Lungs/Pleura: Trace right pleural effusion. Minor subsegmental atelectasis posterior lung bases. Calcified nodules. Segment left lower lobe. No significant lung nodules or masses. No pneumothorax. Soft Tissues/Bones: No acute bone or soft tissue abnormality. Kyphoplasties at T10, T11 and T12. CTA ABDOMEN: Abdominal aorta/Branches: No aneurysm or dissection. Mild atherosclerotic disease. Satisfactory enhancement of celiac trunk, SMA and renal arteries. Organs: Liver, spleen, adrenal glands and gallbladder show no acute process. Exophytic simple cyst 3.6 cm right kidney. No follow-up recommended. There is 13 mm hypodensity in the uncinate process and 7 mm hypodensity in the body. Further workup with non emergency MRI recommended. GI/Bowel: There is limited evaluation due to absence of oral contrast. No bowel obstruction. No acute infective process. Sigmoid diverticulosis. Peritoneum/Retroperiton eum: No free fluid or lymphadenopathy. Bones/Soft Tissues: No acute process. CTA PELVIS: Aorta/Iliacs: Stent in the right common iliac artery. Normal resume a dissection. Other: Unremarkable urinary bladder. Uterus present. Not optimally assessed on this study. Complex appearing lobulated 3.7 cm right adnexal cystic mass. Not optimally assessed on this study. Further evaluation with pelvic ultrasound is recommended. Bones/Soft Tissues: No acute abnormality of the bones. The superficial soft tissues show no acute process. IMPRESSION: 1. No evidence for aortic aneurysm or dissection. 2. There is a stent in the right common iliac artery. 3. No evidence for acute pulmonary embolism. 4. Cystic hypodense nodule in the pancreatic body and uncinate process measuring 7 mm and 13 mm respectively. Recommend further evaluation with non emergency MRI. 5. Complex appearing lobulated 3.7 cm right adnexal cystic mass. Not optimally assessed on this study. Further evaluation with pelvic ultrasound is recommended. [facility] Radiology Study observation (narrative) [facility] CTA Chest vessels and Abdomi nal vessels and Pelvis vessels W contrast IVOrdered By: Faisal Treviño on 05-17-2023 [facility] Work Phone: Comp Metabolic Profon 2023 Albumin [Mass/Vol] 3.8 g/dL Normal 3.5-5.2 [facility] Comment on above: Performed By: #### U MICAO, UAX #### [facility] [address] [place] [address] Flarer: Daniella Lott MD Albumin/Glob Ratio 1.4 Normal 1.0-2.5 [facility] Comment on above: Performed By: #### U MICAO, UAX #### [facility] [address] [place] [address] Flarer: Daniella Lott MD Alkaline Phos 74 U/L Normal 35-104 [facility] Comment on above: Performed By: #### U MICAO, UAX #### [facility] [address] [place] [address] Flarer: Daniella Lott MD ALT [Catalytic activity/Vol] 11 U/L Normal 5-33 [facility] Comment on above: Performed By: #### U KIKIO, UAX #### [facility] [address] [place], [place] [id number] Flarer: Daniella Lott MD Anion gap [Moles/Vol] 9 mmol/L Normal 9-17 [facility] Comment on above: Performed By: #### U KIKIO, UAX #### [facility] [address] [place], [place] [id number] Flarer: Daniella Lott MD AST [Catalytic activity/Vol] 18 U/L Normal <32 [facility] Comment on above: Performed By: #### U KIKIO, UAX #### [facility] [address] [place], [place] [id number] Flarer: Daniella Lott MD Bilirubin [Mass/Vol] 0.5 mg/dL Normal 0.3-1.2 [facility] Comment on above: Performed By: #### U LORENA UAX #### [facility] [address] [place], [place] [id number] Flarer: Daniella Lott MD BUN/CRE Ratio 20 Normal 9-20 [facility] Comment on above: Performed By: #### U LORENA, UAX #### [facility] [address] [place], [place] [id number] Flarer: Daniella Lott MD Calcium [Mass/Vol] 8.7 mg/dL Normal 8.6-10.4 [facility] Comment on above: Performed By: #### U MICAO, UAX #### [facility] [address] [place], [place] [id number] Flarer: Daniella Lott MD Chloride [Moles/Vol] 108 mmol/L High 98-107 [facility] Comment on above: Performed By: #### U MICAO, UAX #### [facility] [address] [place] [address] Flarer: Daniella Lott MD CO2 [Moles/Vol] 25 mmol/L Normal 20-31 [facility] Comment on above: Performed By: #### U KIKIO, UAX #### [facility] [address] [place] [address] Flarer: Daniella Lott MD Creatinine [Mass/Vol] 1.3 mg/dL High 0.5-0.9 [facility] Comment on above: Performed By: #### U LORENA UAX #### [facility] [address] [place] [address] Flarer: Daniella Lott MD GFR/1.73 sq M.predicted among non-blacks MDRD (S/P/Bld) [Vol rate/Area] 44 mL/min/{1.73_m2} Low >60 [facility] Comment on above: Result Comment: These results are not intended for use in patients <18 years of age. eGFR results are calculated without a race factor using the 2020 CKD-EPI equation. Careful clinical correlation is recommended, particularly when comparing to results calculated using previous equations. The CKD-EPI equation is less accurate in patients with extremes of muscle mass, extra-renal metabolism of creatine, excessive creatine ingestion, or following therapy that affects renal tubular secretion. Performed By: #### U LORENA UAX #### [facility] [address] [place] [address] Flarer: Daniella Lott MD Glucose [Mass/Vol] 99 mg/dL Normal 70-99 [facility] Comment on above: Performed By: #### U LORENA, UAX #### [facility] [address] [place] [address] Flarer: Daniella Lott MD Potassium [Moles/Vol] 4.5 mmol/L Normal 3.7-5.3 [facility] Comment on above: Performed By: #### U MICAO, UAX #### [facility] [address] [place] [address] Flarer: Daniella Lott MD Protein [Mass/Vol] 6.6 g/dL Normal 6.4-8.3 [facility] Comment on above: Performed By: #### U KIKIO, UAX #### [facility] [address] [place] [address] Flarer: Daniella Lott MD Sodium [Moles/Vol] 142 mmol/L Normal 135-144 [facility] Comment on above: Performed By: #### U LORENA, UAX #### [facility] [address] [place] [address] Flarer: Daniella Lott MD Urea nitrogen [Mass/Vol] 26 mg/dL High 8-23 [facility] Comment on above: Performed By: #### U LORENA, UAX #### [facility] [address] [place] [address] Flarer: Daniella Lott MD Comprehensive Metabolic Pane [facility] 05-17-2023 Albumin [Mass/Vol] 3.8 g/dL 3.5 - 5.2 g/dL [facility] Albumin/Globulin [Mass ratio] 1.4 {ratio} 1.0 - 2.5 [facility] ALP [Catalytic activity/Vol] 74 U/L 35 - 104 U/L [facility] ALT [Catalytic activity/Vol] 11 U/L 5 - 33 U/L [facility] Anion gap [Moles/Vol] 9 mmol/L 9 - 17 mmol/L [facility] AST [Catalytic activity/Vol] 18 U/L NINF - 32 U/L [facility] Bilirubin [Mass/Vol] 0.5 mg/dL 0.3 - 1.2 mg/dL [facility] Calcium [Mass/Vol] 8.7 mg/dL 8.6 - 10. 4 mg/dL [facility] Chloride [Moles/Vol] 108 mmol/L High 98 - 107 mmol/L [facility] CO2 [Moles/Vol] 25 mmol/L 20 - 31 mmol/L [facility] Creatinine [Mass/Vol] 1.3 mg/dL High 0.5 - 0.9 mg/dL [facility] GFR/1.73 sq M.predicted MDRD (S/P/Bld) [Vol rate/Area] 44 mL/min/{1.73_m2} Low - PINF [facility] Comment on above: These results are not intended for use in patients <18 years of age. eGFR results are calculated without a race factor using the 2020 CKD-EPI equation. Careful clinical correlation is recommended, particularly when comparing to results calculated using previous equations. The CKD-EPI equation is less accurate in patients with extremes of muscle mass, extra-renal metabolism of creatine, excessive creatine ingestion, or following therapy that affects renal tubular secretion. Glucose [Mass/Vol] 99 mg/dL 70 - 99 mg/dL [facility] Interpretation and review of laboratory results Abnormal [facility] Potassium [Moles/Vol] 4.5 mmol/L 3.7 - 5.3 mmol/L [facility] Protein [Mass/Vol] 6.6 g/dL 6.4 - 8.3 g/dL [facility] Sodium [Moles/Vol] 142 mmol/L 135 - 144 mmol/L [facility] Urea nitrogen [Mass/Vol] 26 mg/dL High 8 - 23 mg/dL [facility] Urea nitrogen/Creatinin e [Mass ratio] 20 mg/mg 9 - 20 [facility] Microscopic Urinalysison Bacteria LM Ql (Urine sed) 2+ Abnormal None [facility] Epithelial cells LM.HPF (Urine sed) [#/Area] 5 TO 10 [facility] Interpretation and review of laboratory results Abnormal [facility] Mucus Ql (Urine sed) TRACE Abnormal None [facility] RBC LM.HPF (Urine sed) [#/Area] 0 TO 2 [facility] Renal Epithelial, UA 0 TO 2 0 /HPF [facility] WBC LM.HPF (Urine sed) [#/Area] 5 TO 10 [facility] Portable XR Chest AP single viewon 05-17-2023 1. Mildly increased reticular markings in the lungs and low lung volumes. Bibasilar atelectasis. 2. 5 mm nodular density in the left mid lung, granuloma versus other nodule. [facility] EXAMINATION: ONE XRAY VIEW OF THE CHEST 05/17/2023 12:02 pm COMPARISON: None. HISTORY: ORDERING SYSTEM PROVIDED HISTORY: CP TECHNOLOGIST PROVIDED HISTORY: CP FINDINGS: Medical devices: None. Mediastinum/Heart: The mediastinal contours are normal. The heart appears normal in size. Lungs: Mildly increased reticular markings in the lungs and low lung volumes. Bibasilar atelectasis. 5 mm nodular density in the left mid lung, granuloma versus other nodule. Pleura: No pleural effusion. No pneumothorax. [facility] Dacia Linton MD - 05/17/2023 EXAMINATION: ONE XRAY VIEW OF THE CHEST 05/17/2023 12:02 pm COMPARISON: None. HISTORY: ORDERING SYSTEM PROVIDED HISTORY: CP TECHNOLOGIST PROVIDED HISTORY: CP FINDINGS: Medical devices: None. Mediastinum/Heart: The mediastinal contours are normal. The heart appears normal in size. Lungs: Mildly increased reticular markings in the lungs and low lung volumes. Bibasilar atelectasis. 5 mm nodular density in the left mid lung, granuloma versus other nodule. Pleura: No pleural effusion. No pneumothorax. IMPRESSION: 1. Mildly increased reticular markings in the lungs and low lung volumes. Bibasilar atelectasis. 2. 5 mm nodular density in the left mid lung, granuloma versus other nodule. [facility] Radiology Study observation (narrative) [facility] Portable XR Chest AP single viewOrdered By: Dacia Linton on 05-17-2023 [facility] Work Phone: Troponinon 05-17-2023 Troponin, High Sens 18 ng/L High 0-14 [facility] Comment on above: Result Comment: High Sensitivity Troponin values cannot be compared with other Troponin methodologies. Performed By: #### U LADONNA CARRILLO #### [facility] [address] [place], [place] [id number] Flarer: Daniella Lott MD Interpretation and review of laboratory results Abnormal [facility] Troponin I.cardiac High sensitivity method [Mass/Vol] 18 ng/L High 0 - 14 ng/L [facility] Comment on above: High Sensitivity Tro ponin values cannot be compared with other Troponin methodologies. [facility] Troponin, High Sens 19 ng/L High 0-14 [facility] Comment on above: Result Comment: High Sensitivity Troponin values cannot be compared with other Troponin methodologies. Performed By: #### T ROPI #### [facility] [address] [place], [place] [id number] Flarer: Daniella Lott MD Troponin, High Sens 19 ng/L High 0-14 [facility] Comment on above: Result Comment: High Sensitivity Troponin values cannot be compared with other Troponin methodologies. Performed By: #### U KIKIO UAX #### [facility] [address] [place] [address] Flarer: Daniella Lott MD Interpretation and review of laboratory results Abnormal [facility] Troponin I.cardiac High sensitivity method [Mass/Vol] 19 ng/L High 0 - 14 ng/L [facility] Comment on above: High Sensitivity Tro ponin values cannot be compared with other Troponin methodologies. [facility] Interpretation and review of laboratory results Abnormal [facility] Troponin I.cardiac High sensitivity method [Mass/Vol] 19 ng/L High 0 - 14 ng/L [facility] Comment on above: High Sensitivity Tro ponin values cannot be compared with other Troponin methodologies. [facility] UA w/Reflex Cultureon 2023 Bilirubin, SemiQt,Ur Negative Normal NEG [facility] Comment on above: Performed By: #### U KIKIO, UAX #### [facility] [address] [place], [place] [id number] Flarer: Daniella Lott MD Blood, Urine Negative Normal NEG [facility] Comment on above: Performed By: #### U MICAO, UAX #### [facility] [address] [place] [address] [address] [place], [place] [id number] Flarer: Daniella Lott MD Glucose Ql (U) Negative Normal NEG [facility] in [facility] Comment on above: Performed By: #### U MICAO, UAX #### [facility] [address] [place] [address] [place] [place], [place] [id number] Flarer: Daniella Lott MD Ketones Ql (U) Negative Normal NEG [facility] Comment on above: Performed By: #### U MICAO, UAX #### [facility] [address] [place] [address] [place] [place], [place] [id number] Flarer: Daniella Lott MD Nitrite,Ur Negative Normal NEG [facility] Comment on above: Performed By: #### U MICAO, UAX #### [facility] [address] [place] [address] [place] [place], [place] [id number] Flarer: Daniella Lott MD PH,Ur 6.0 Normal 5.0-9.0 [facility] Comment on above: Performed By: #### U MICAO, UAX #### [address] [place] [address] Flarer: Daniella Lott MD Protein Ql (U) Negative Normal NEG [facility] Comment on above: Performed By: #### U MICAO, UAX #### [facility] [address] [place] [address] [place] [place], [place] [id number] Flarer: Daniella Lott MD Spec. Banner,Ur 1.015 Normal 1.010-1.020 [facility] Comment on above: Performed By: #### U MICAO, UAX #### [facility] [address] [place] [address] [place] [place], [place] [id number] Flarer: Daniella Lott MD Urobilinogen,Ur Normal Normal 0.0-1.0 [facility] Comment on above: Performed By: #### U MICAO, UAX #### [facility] [address] [place] [address] Flarer: Daniella Lott MD Clarity (U) Clear Normal CLEAR [facility] Comment on above: Performed By: #### U MICAO, UAX #### [facility] [address] [place], [place] [id number] Flarer: Daniella Lott MD Color (U) Yellow Normal YEL [facility] Comment on above: Performed By: #### U MICAO, UAX #### [facility] [address] [place] [address] [place] [place], [place] [id number] Flarer: Daniella Lott MD Leukocyte esterase Test strip Ql (U) SMALL Abnormal NEG [facility] Comment on above: Performed By: #### U MICAO, UAX #### [facility] [address] [place] [address] [place] [place], [place] [id number] Flarer: Daniella Lott MD US GALLBLADDER RUQon 024 US GALLBLADDER RUQ EXAMINATION: RIGHT UPPER QUADRANT ULTRASOUND 05/17/2023 2:06 pm COMPARISON: None. HISTORY: ORDERING SYSTEM PROVIDED HISTORY: pain in RUQ with radiating into shoulder and back TECHNOLOGIST PROVIDED HISTORY: pain in RUQ with radiating into shoulder and back FINDINGS: LIVER: The liver demonstrates normal echogenicity without evidence of intrahepatic biliary ductal dilatation. BILIARY SYSTEM: Gallbladder is unremarkable without evidence of pericholecystic fluid, wall thickening or stones. Negative sonographic Alcantar's sign. Dilated common bile duct measuring up to 8 mm diameter. RIGHT KIDNEY: Normal echotexture. 3.1 x 3.2 x 4.2 cm exophytic simple cyst along the upper pole. PANCREAS: Visualized portions of the pancreas are unremarkable. OTHER: No evidence of right upper quadrant ascites. IMPRESSION: 1. Dilated common bile duct up to 8 mm diameter. If deemed clinically necessary this can be further worked up with MRCP. 2. No evidence for acute cholecystitis. 3. No evidence for cholelithiasis. 4. 4.2 cm exophytic cyst upper pole right kidney. Interpreted by: Faisal Treviño MD Signed by: Faisal Treviño MD 05/17/23 Final result Normal [facility] US Gallbladderon 05-17-2023 1. Dilated common bi le duct up to 8 mm diameter. If deemed clinically necessary this can be further worked up with MRCP. 2. No evidence for acute cholecystitis. 3. No evidence for cholelithiasis. 4. 4.2 cm exophytic cyst upper pole right kidney. [facility] RIS CONSOLIDATED EXAMINATION: RIGHT UPPER QUADRANT ULTRASOUND 05/17/2023 2:06 pm COMPARISON: None. HISTORY: ORDERING SYSTEM PROVIDED HISTORY: pain in RUQ with radiating into shoulder and back TECHNOLOGIST PROVIDED HISTORY: pain in RUQ with radiating into shoulder and back FINDINGS: LIVER: The liver demonstrates normal echogenicity without evidence of intrahepatic biliary ductal dilatation. BILIARY SYSTEM: Gallbladder is unremarkable without evidence of pericholecystic fluid, wall thickening or stones. Negative sonographic Alcantar's sign. Dilated common bile duct measuring up to 8 mm diameter. RIGHT KIDNEY: Normal echotexture. 3.1 x 3.2 x 4.2 cm exophytic simple cyst along the upper pole. PANCREAS: Visualized portions of the pancreas are unremarkable. OTHER: No evidence of right upper quadrant ascites. [facility] Faisal Treviño MD - 05/17/2023 EXAMINATION: RIGHT UPPER QUADRANT ULTRASOUND 05/17/2023 2:06 pm COMPARISON: None. HISTORY: ORDERING SYSTEM PROVIDED HISTORY: pain in RUQ with radiating into shoulder and back TECHNOLOGIST PROVIDED HISTORY: pain in RUQ with radiating into shoulder and back FINDINGS: LIVER: The liver demonstrates normal echogenicity without evidence of intrahepatic biliary ductal dilatation. BILIARY SYSTEM: Gallbladder is unremarkable without evidence of pericholecystic fluid, wall thickening or stones. Negative sonographic Alcantar's sign. Dilated common bile duct measuring up to 8 mm diameter. RIGHT KIDNEY: Normal echotexture. 3.1 x 3.2 x 4.2 cm exophytic simple cyst along the upper pole. PANCREAS: Visualized portions of the pancreas are unremarkable. OTHER: No evidence of right upper quadrant ascites. IMPRESSION: 1. Dilated common bile duct up to 8 mm diameter. If deemed clinically necessary this can be further worked up with MRCP. 2. No evidence for acute cholecystitis. 3. No evidence for cholelithiasis. 4. 4.2 cm exophytic cyst upper pole right kidney. [facility] Radiology Study observation (narrative) [facility] Urinalysis with Reflex to Cu ltureon 05-17-2023 Bilirubin Ql (U) Negative [facility] Glucose Test strip (U) [Mass/Vol] Negative NEGATIVE mg/dL [facility] Hemoglobin Auto test strip Ql (U) Negative NEGATIVE [facility] Interpretation and review of laboratory results Abnormal [facility] Ketones (U) [Mass/Vol] Negative NEGATIVE mg/dL [facility] Nitrite Ql (U) Negative NEGATIVE [place] [facility] pH (U) 6.0 [pH] 5.0 - 9.0 [facility] Protein (U) [Mass/Vol] Negative NEGATIVE mg/dL [facility] Specific gravity (U) [Rel density] 1.015 1.010 - 1.020 [facility] Urobilinogen Qn (U) Normal 0.0 - 1.0 EU/dL [facility] Urinalysis,Microon 4 Bacteria 2+ Abnormal [facility] Comment on above: Performed By: #### U MICAO, UAX #### [facility] [address] [place] [address] Flarer: Daniella Lott MD Epithelial cells LM Ql (Urine sed) 5 TO 10 Normal 0-25 [facility] Comment on above: Performed By: #### U MICAO, UAX #### [facility] [address] [place] [address] Flarer: Daniella Lott MD Epithelial, Renal 0 TO 2 Normal 0 [facility] Comment on above: Performed By: #### U MICAO, UAX #### [facility] [address] [place] [address] Flarer: Daniella Lott MD Mucus Strands TRACE Abnormal NONE [facility] Comment on above: Performed By: #### U MICAO, UAX #### [facility] [address] [place] [address] Flarer: Daniella Lott MD Urine RBC's 0 TO 2 Normal 0-2 [facility] Comment on above: Performed By: #### U MICAO, UAX #### [facility] [address] [place] [address] Flarer: Daniella Lott MD Urine WBC's 5 TO 10 Normal 0-5 [facility] Comment on above: Performed By: #### U LORENA, UAX #### [facility] [address] [place] [address] Flarer: Daniella Lott MD XR CHEST PORTABLEon 05-17-19 XR CHEST PORTABLE EXAMINATION: ONE XRAY VIEW OF THE CHEST 05/17/2023 12:02 pm COMPARISON: None. HISTORY: ORDERING SYSTEM PROVIDED HISTORY: CP TECHNOLOGIST PROVIDED HISTORY: CP FINDINGS: Medical devices: None. Mediastinum/Heart: The mediastinal contours are normal. The heart appears normal in size. Lungs: Mildly increased reticular markings in the lungs and low lung volumes. Bibasilar atelectasis. 5 mm nodular density in the left mid lung, granuloma versus other nodule. Pleura: No pleural effusion. No pneumothorax. IMPRESSION: 1. Mildly increased reticular markings in the lungs and low lung volumes. Bibasilar atelectasis. 2. 5 mm nodular density in the left mid lung, granuloma versus other nodule. Interpreted by: Dacia Linton MD Signed by: Dacia Linton MD 05/17/23 Final result Normal [facility] CNOVon 03-14-2023 CNOV Office Visit ([facility]) MONICA HERRING ([id number]) 1950 F Date Time Provider Department 03/14/23 10:00 AM RUPESH GU [facility] During your visit today, we recorded the following information about you: Pulse Blood pressure Weight 62/minute 123/48 57.5 kg Rupesh Gu 03/14/2023 9:39 AM Signed [facility] [place] SECTION OF REGIONAL CARDIOLOGY March 14, 2023 Outpatient VISIT TYPE ESTABLISHED PRIMARY CARE PHYSIC[place]: [place] [address] [place] [address] CHIEF COMPLAINT: Scheduled fu and to establish care. HISTORY OF PRESENT ILLNESS: Ms. Herring is a 72 year old female with a PMH of CAD sp PCI to LAD in 2009, PAF, HTN, HLD, mild MR, PVD, CKD, and a smoker. She was last seen by me on 08/11/21, per that note: ... she tells me that she is feeling well. She has a new puppy. She denies having any: chest pain, palpitations, shortness of breath, orthopnea, LE edema, presyncope/syncope, N/V, bleeding, or other significant symptoms. Today, she tells me that she feels well. He denies having any: chest pain, palpitations, shortness of breath, orthopnea, LE edema, presyncope/syncope, N/V, bleeding, or other significant symptoms. She is not eating vegetables daily. She does not drink caffinated beverages. She doesn't smoke nor drink alcohol nor use any drugs. Her exercise is getting the mail and cleaning the house. IMPRESSION: Encounter Diagnosis ICD-10-CM 1. Paroxysmal atrial fibrillation (HCC) I48.0 2. Mixed hyperlipidemia E78.2 3. 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 I25.10 4. Non-rheumatic mitral regurgitation I34.0 ECHO perflutren lipid microspheres 1.3 mL in NaCl (PF) 0.9% 10 mL injection (DEFINITY) sodium chloride 0.9 % (flush) 10 mL (BD POSIFLUSH) 5. Hypertension, unspecified type I10 6. PVD (peripheral vascular disease) (HCC) I73.9 PLAN AND RECOMMENDATIONS: ANGELINA Sood, Dr. Paul. Amiodarone discontinued. Not currently on anticoagulation due to prior perinephric hematoma -followed by vascular surgeon. No AF seen on monitor recently, result reviewed today. Prior stent noted, no signs of angina at this time. Continue cardiac medications with: ASA, b-shannen, and statin. Current BP goal is less than 130/80mmHg, BP is at goal today. Continue: Carvedilol 12.5 mg twice daily, hydralazine 50mg TID, doxazosin 2 mg twice daily. Lifestyle modifications including: heart healthy diet that is low in sodium, regular exercise, maintain an ideal body weight, limit ETOH use, and complete smoking cessation. Patient should monitor BP at home and bring readings to the next office visit. Labs prior to next visit including a BMP. Goal LDL is less than 70mg/dL. Continue rosuvastatin 20 mg/dL. Recommend checking a lipid panel prior to next visit. Moderate MR noted. Recommend checking prior to next visit. Significant LE vascular disease noted, vascular. PHYSICAL EXAMINATION: BP (!) 123/48 Pulse 62 Wt 57.5 kg (126 lb 12.2 oz) LMP 02/28/1999 SpO2 98% BMI 23.95 kg/m? GENERAL APPEARANCE: Well developed, well nourished, in no acute distress. CHEST: Symmetric and non-tender. INTEGUMENT: Skin warm and dry, without gross excoriations or lesions. HEENT: No gross abnormalities of conjunctiva, teeth, gums, oral mucosa. NECK: Supple, no JVD, no bruit. Thyroid not palpable. Carotid upstrokes normal. NEURO/PSYCH: Alert and oriented x 3; appropriate behavior and responses, grossly normal cerebellar function with normal balance and coordination. LUNGS: Clear to auscultation bilaterally; normal respiratory effort. HEART: Rate and rhythm regular with no evident murmur; no gallop appreciated. There are no rubs, clicks or heaves. PMI nondisplaced. ABDOMEN: Soft, nontender, no palpable hepatosplenomegaly, no mases, no bruits. Abdominal aorta not noted to be enlarged. MUSCULOSKELETAL: Ambulatory with normal tandem gait. EXTREMITIES: Warm with good color, no clubbing or cyanois. There is no edema noted. PERIPHERAL VASCULAR: No femoral bruits; faint LE pulses CARDIOVASCULAR MEDICINE TESTING: I have personally reviewed ECG, laboratory results and vascular imaging report ECG-01/28/2023 NSR 64 bpm, normal ECG PVR - 09/21/16 IMPRESSION Compared to prior study of 04/23/2016, Right CYNDI was .78 and today is .73, Left CYNDI was 1.07 and today is .93. Echo -05/19/2021 CONCLUSIONS: - Exam indication: A,fib, Mitral regurgitation - The left ventricle is small. Left ventricular systolic function is normal. EF = 58 ? 5% (2D biplane) - The right ventricle is normal in size. Right ventricular systolic function is normal. - There is moderate (2+) mitral valve regurgitation. Regurgitant orifice area (PISA) is 0.30 cm?. - Exam was compared with the prior echocardiographic (more content not included)... Normal [facility] US THYROID/PARATHYROIDon US THYROID/PARATHYROI D * * *Final Report* * * DATE OF EXAM: Mar 14 2023 11:20AM U 1048 - US THYROID/PARATHYROID / PROCEDURE REASON: Thyroid nodule greater than or equal to 1.5 cm in diameter incidentally noted on * * * * Physician Interpretation * * * * EXAMINATION: THYROID ULTRASOUND CLINICAL HISTORY: Thyroid nodule greater than or equal to 1.5 cm in diameter incidentally noted on imaging study from the vascular lab. TECHNIQUE: Sonography and Doppler imaging of the thyroid was performed. Images were obtained and stored in a permanent archive. MQ: UST_1 COMPARISON: None. RESULT: Right Lobe: 4.3 x 1.9 x 1.9 cm; heterogeneous with numerous nodules, increased vascular flow on color Doppler imaging. Left Lobe: 4.4 x 1.3 x 1.2 cm; heterogeneous with numerous nodules, increased vascular flow on color Doppler imaging. Isthmus: 0.1 cm The most suspicious thyroid nodule(s) (up to four) as below: NODULE 1: Location: Right mid Size: 0.9 x 0.8 x 0.5 cm Characteristics: Composition: Solid or almost completely solid, 2 points Echogenicity: Hypoechoic, 2 points Shape: Vlpui-jpya-udna, 0 points Margin: Lobulated or irregular, 2 points Echogenic foci (add points for all that apply): Punctate echogenic foci, 3 points Internal vascularity: present Interval growth: No prior available for comparison TI-RADS Category: TR5 ACR Recommendation: TI-RADS 5 nodule. Follow up imaging is advised annually for 5 years. NODULE 2: Location: Right lower pole Size: 1.8 x 1.6 x 1.4 cm Characteristics: Composition: Solid or almost completely solid, 2 points Echogenicity: Hypoechoic, 2 points Shape: Wqnzz-drta-gdeo, 0 points Margin: Smooth, 0 points Echogenic foci (add points for all that apply): None, 0 points Internal vascularity: present Interval growth: No prior available for comparison TI-RADS Category: TR4 ACR Recommendation: TI-RADS 4 nodule. FNA is recommended. NODULE 3: Location: Left mid Size: 0.5 x 0.5 x 0.4 cm Characteristics: Composition: Solid or almost completely solid, 2 points Echogenicity: Hypoechoic, 2 points Shape: Bivuk-rvdy-ytmi, 0 points Margin: Smooth, 0 points Echogenic foci (add points for all that apply): None, 0 points Internal vascularity: present Interval growth: No prior available for comparison TI-RADS Category: TR4 ACR Recommendation: TI-RADS 4 nodule. No FNA or follow-up imaging is advised. NODULE 4: Location: Left mid/ upper Size: 0.6 x 0.4 x 0.3 cm Characteristics: Composition: Solid or almost completely solid, 2 points Echogenicity: Hypoechoic, 2 points Shape: Rbqhb-ocjk-egcl, 0 points Margin: Smooth, 0 points Echogenic foci (add points for all that apply): None, 0 points Internal vascularity: absent Interval growth: No prior available for comparison TI-RADS Category: TR4 ACR Recommendation: TI-RADS 4 nodule. No FNA or follow-up imaging is advised. IMPRESSION: Thyroid nodules are present. Fine needle aspiration is recommended for one or more nodules as detailed in the synoptic report. TI-RADS Category: TR4 ACR Recommendation: TI-RADS 4 nodule. FNA is recommended. ACR recommendations are strictly based on the size and imaging appearance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 Facility: [facility] Address: [address] [place] [address] Result Comment: Samanta mated Glomerular Filtration Rate (eGFR) is calculated using the 2020 CKD-EPI creatinine equation. This equation utilizes serum creatinine, sex, and age as parameters. The creatinine assay has traceable calibration to isotope dilution-mass spectrometry. Refer to KDIGO guidelines for clinical interpretation. In patients with unstable renal function, e.g. those with acute kidney injury, the eGFR may not accurately reflect actual GFR. Performed By: #### 2 4320-03, ####[facility] LABCLIA [id number] [address] [address] [place]#### 62492-3 ####[facility] LABCLIA [id number] [place] [address] [facility] LABORATORYCLIA [id number] [place] [address] [place] Glucose [Mass/Vol] 100 mg/dL High 74-99 [facility] Comment on above: Order Comment: Speci men Type: BLOOD SPECIMENOrdering Facility: [facility] Address: [address] [place] [address] Result Comment: The [place] Diabetes Association (ADA) provides guidance for cutoff values for fasting glucose and random glucose. The ADA defines fasting as no caloric intake for at least 8 hours. Fasting plasma glucose results between 100 to 125 mg/dL indicate increased risk for diabetes (prediabetes). Fasting plasma glucose results greater than or equal to 126 mg/dL meet the criteria for diagnosis of diabetes. In the absence of unequivocal hyperglycemia, results should be confirmed by repeat testing. In a patient with classic symptoms of hyperglycemia or hyperglycemic crisis, random plasma glucose results greater than or equal to 200 mg/dL meet the criteria for diagnosis of diabetes. Reference: Standards of Medical Care in Diabetes 2016, [place] Diabetes Association. Diabetes Care. 2016.39(Suppl 1). Performed By: #### 2 4321-2, 75624-6 ####[facility] LABIA [id number] [place] [address] [place]#### 60302-2 ####[facility] LABCLIA [id number] [place] [address] [facility] LABORATORYCLIA [id number] [place] [id number] [place] Potassium [Moles/Vol] 4.9 mmol/L Normal 3.7-5.[address] [facility] Comment on above: Order Comment: Speci men Type: BLOOD SPECIMENOrdering Facility: [facility] Address: [address] [place] [address] Performed By: #### 2 4321-2, ####[facility] LABCLIA [id number] [place] [address] [place]#### 17350-2 ####[facility] LABCLIA [id number] [address] [address] [place] [facility] LABORATORYCLIA [id number] [place] [address] [place] Sodium [Moles/Vol] 139 mmol/L Normal 136-144 [facility] Comment on above: Order Comment: Speci men Type: BLOOD SPECIMENOrdering Facility: [facility] Address: [address] [place] [address] Performed By: #### 2 4321-2, ####[facility] LABCLIA [id number] [place] [address] [place]#### 52021-7 ####[facility] LABCLIA [id number] [place] [address] [place] [facility] LABORATORYIA [id number] [place] [address] [place] Urea nitrogen [Mass/Vol] 30 mg/dL High 7-[address] [facility] Comment on above: Order Comment: Speci men Type: BLOOD SPECIMENOrdering Facility: [facility] Address: [address] [place] [address] Performed By: #### 2 4321-2, ####[facility] LABCLIA [id number] [place] [address] [place]#### 62253-9 ####[facility] LABCLIA [id number] [place] [address] [place] [facility] LABORATORYCLIA [id number] [place] [address] [place] CBC W Auto Differential pane l (Bld)on 01-28-2023 Basophils (Bld) [#/Vol] 0.04 10*3/uL Normal <0.[address] [facility] Comment on above: Order Comment: Speci men Type: BLOOD SPECIMENOrdering Facility: [facility] Address: [address] [place] [address] Performed By: #### 5 7021-8 ####[facility] LABCLIA [id number] [place] [address] [place] Basophils/100 WBC (Bld) 0.8 % Normal [facility] Comment on above: Order Comment: Speci men Type: BLOOD SPECIMENOrdering Facility: [facility] Address: [address] [place] [address] Performed By: #### 5 7021-8 ####[facility] LABCLIA [id number] [place] [address] [place] Differential cell count method Nom (Bld) Auto Normal [facility] Comment on above: Order Comment: Speci men Type: BLOOD SPECIMENOrdering Facility: [facility] Address: [address] [place] [address] Performed By: #### 5 7021-8 ####[facility] LABCLIA [id number] [place] [address] [place] Eosinophils (Bld) [#/Vol] 0.13 10*3/uL Normal <0.[address] [facility] Comment on above: Order Comment: Speci men Type: BLOOD SPECIMENOrdering Facility: [facility] Address: [address] [place] [address] Performed By: #### 5 7021-8 ####[facility] LABCLIA [id number] [place] [address] [place] Eosinophils/100 WBC (Bld) 2.7 % Normal [facility] Comment on above: Order Comment: Speci men Type: BLOOD SPECIMENOrdering Facility: [facility] Address: [address] [place] [address] Performed By: #### 5 7021-8 ####[facility] LABCLIA [id number] [place] [address] [place] Erythrocyte distribution width (RBC) [Ratio] 13.2 % Normal 11.5-15.[address] [facility] Comment on above: Order Comment: Speci men Type: BLOOD SPECIMENOrdering Facility: [facility] Address: [address] [place] [address] Performed By: #### 5 7021-8 ####[facility] LABCLIA [id number] [place] [address] [place] Hematocrit (Bld) [Volume fraction] 37.7 % Normal 36.0-46.[address] [facility] Comment on above: Order Comment: Speci men Type: BLOOD SPECIMENOrdering Facility: [facility] Address: [address] [place] [address] Performed By: #### 5 7021-8 ####[facility] LABCLIA [id number] [place] [address] [place] Hemoglobin (Bld) [Mass/Vol] 11.9 g/dL Normal 11.5-15.[address] [facility] Comment on above: Order Comment: Speci men Type: BLOOD SPECIMENOrdering Facility: [facility] Address: [address] [place] [address] Performed By: #### 5 7021-8 ####[facility] LABCLIA [id number] [place] [address] [place] Immature granulocytes (Bld) [#/Vol] 10*3/uL Normal <0.[address] [facility] Comment on above: Order Comment: Speci men Type: BLOOD SPECIMENOrdering Facility: [facility] Address: [address] [place] [address] Performed By: #### 5 7021-8 ####[facility] LABCLIA [id number] [id number], [place] [address] [place] Immature granulocytes/100 WBC (Bld) 0.4 % Normal [facility] Comment on above: Order Comment: Speci men Type: BLOOD SPECIMENOrdering Facility: [facility] Address: [address] [place] [address] Performed By: #### 5 7021-8 ####[facility] LABCLIA [id number] [place] [address] [place] Lymphocytes (Bld) [#/Vol] 1.42 10*3/uL Normal 1.00-4.[address] [facility] Comment on above: Order Comment: Speci men Type: BLOOD SPECIMENOrdering Facility: [facility] Address: [address] [place] [address] Performed By: #### 5 7021-8 ####[facility] LABCLIA [id number] [place] [address] [place] Lymphocytes/100 WBC (Bld) 29.5 % Normal [facility] Comment on above: Order Comment: Speci men Type: BLOOD SPECIMENOrdering Facility: [facility] Address: [address] [place] [address] Performed By: #### 5 7021-8 ####[facility] LABCLIA [id number] [place] [address] [place] MCH (RBC) [Entitic mass] 30.9 pg Normal 26.0-34.[address] [facility] Comment on above: Order Comment: Speci men Type: BLOOD SPECIMENOrdering Facility: [facility] Address: [address] [place] [address] Performed By: #### 5 7021-8 ####[facility] LABCLIA [id number] [place] [address] [place] MCHC (RBC) [Mass/Vol] 31.6 g/dL Normal 30.5-36.[address] [facility] Comment on above: Order Comment: Speci men Type: BLOOD SPECIMENOrdering Facility: [facility] Address: [address] [place] [address] Performed By: #### 5 7021-8 ####[facility] LABCLIA [id number] [place] [address] [place] MCV (RBC) [Entitic vol] 97.9 fL Normal 80.0-100.[address] [facility] Comment on above: Order Comment: Speci men Type: BLOOD SPECIMENOrdering Facility: [facility] Address: [address] [place] [address] Performed By: #### 5 7021-8 ####[facility] LABCLIA [id number] [place] [address] [place] Monocytes (Bld) [#/Vol] 0.41 10*3/uL Normal <0.[address] [facility] Comment on above: Order Comment: Speci men Type: BLOOD SPECIMENOrdering Facility: [facility] Address: [address] [place] [address] Performed By: #### 5 7021-8 ####[facility] LABCLIA [id number] [place] [address] [place] Monocytes/100 WBC (Bld) 8.5 % Normal [facility] Comment on above: Order Comment: Speci men Type: BLOOD SPECIMENOrdering Facility: [facility] Address: [address] [place] [address] Performed By: #### 5 7021-8 ####[facility] LABCLIA [id number] [place] [address] [place] Neutrophils (Bld) [#/Vol] 2.79 10*3/uL Normal 1.45-7.[address] [facility] Comment on above: Order Comment: Speci men Type: BLOOD SPECIMENOrdering Facility: [facility] Address: [address] [place] [address] Performed By: #### 5 7021-8 ####[facility] LABCLIA [id number] [id number], [place] [address] [place] Neutrophils/100 WBC (Bld) 58.1 % Normal [facility] Comment on above: Order Comment: Speci men Type: BLOOD SPECIMENOrdering Facility: [facility] Address: [address] [place] [address] Performed By: #### 5 7021-8 ####[facility] LABCLIA [id number] [place] [address] [place] Nucleated RBC (Bld) [#/Vol] 10*3/uL Normal <0.[address] [facility] Comment on above: Order Comment: Speci men Type: BLOOD SPECIMENOrdering Facility: [facility] Address: [address] [place] [address] Performed By: #### 5 7021-8 ####[facility] LABCLIA [id number] [place] [address] [place] Nucleated RBC/100 WBC (Bld) [Ratio] 0.0 /100 WBC Normal [facility] Comment on above: Order Comment: Speci men Type: BLOOD SPECIMENOrdering Facility: [facility] Address: [address] [place] [address] Performed By: #### 5 7021-8 ####[facility] LABCLIA [id number] [place] [address] [place] Platelet mean volume (Bld) [Entitic vol] 9.7 fL Normal 9.0-12.[address] [facility] Comment on above: Order Comment: Speci men Type: BLOOD SPECIMENOrdering Facility: [facility] Address: [address] [place] [address] Performed By: #### 5 7021-8 ####[facility] LABCLIA [id number] [place] [address] [place] Platelets (Bld) [#/Vol] 174 10*3/uL Normal 150-[address] [facility] Comment on above: Order Comment: Speci men Type: BLOOD SPECIMENOrdering Facility: [facility] Address: [address] [place] [address] Performed By: #### 5 7021-8 ####[facility] LABCLIA [id number] [place] [address] [place] RBC (Bld) [#/Vol] 3.85 10*6/uL Low 3.90-5.20 [facility] Comment on above: Order Comment: Speci men Type: BLOOD SPECIMENOrdering Facility: [facility] Address: [address] [place] [address] Performed By: #### 5 7021-8 ####[facility] LABCLIA [id number] [place] [address] [place] WBC (Bld) [#/Vol] 4.81 10*3/uL Normal 3.70-11.00 [facility] Comment on above: Order Comment: Speci men Type: BLOOD SPECIMENOrdering Facility: [facility] Address: [address] [place] [address] Performed By: #### 5 7021-8 ####[facility] LABCLIA [id number] [place] [address] [facility] [place] CNOVon 01-28-2023 CNOV Office Visit (CAEPLN ) MONICA HERRING ([id number]) 1950 F Date Time Provider Department 01/28/23 10:30 AM AYO PAUL CAEPLN During your visit today, we recorded the following information about you: Pulse Blood pressure Weight 64/minute 122/74 60.8 kg Ayo Paul MD 01/31/2023 12:45 PM Signed [facility] NOTE DEPARTMENT OF CARDIOLOGY [place] NAME: MONICA HERRING NO.: [id number] DATE OF SERVICE: 01/28/2023 Monica Herring is a 72-year-old female accompanied by her significant other Jatin Early who I have met in the past. She had just gotten a puppy when I saw her last. She and Jatin were very happy with the dog. She is having trouble with pain and tenderness in her left ear and has been seen by neurology on several locations and ENT, no one seems to have a solution to the problem. She is not having effort related chest pains, unusual shortness of breath, rapid heartbeat, or syncope. PAST MEDICAL HISTORY: See Epic notes. 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 MEDICATIONS: See Epic notes. She is taking vitamin D3 daily, multivitamins daily, PreserVision AREDS 2 daily. ALLERGIES: See Epic notes. NORVASC AND PLETAL. PHYSICAL EXAMINATION: Blood pressure 106/64, pulse 64, BMI is 19.75 kg/m2. The patient is alert, cooperative. Examination of the head: Pupils reactive. Neck without bruits or goiter. Chest: Lungs are clear. Heart reveals a regular rhythm. No murmurs or gallops. Abdomen: Soft, nontender. No masses or organomegaly. Extremities: Pulses are intact. No edema. IMPRESSIONS: 1. Paroxysmal atrial fibrillation, controlled. 2. Percutaneous vascular stenting of bilateral iliac arteries due to claudications, complications having perinephritic hematoma, resolved. 3. Chronic renal disease stage 3. 4. Coronary atherosclerosis, no angina pectoris. 5. Hyperlipidemia. 6. Remote non-ST segment elevation myocardial infarction in 2009. The EKG shows sinus rhythm, QRS 92 msec, SC interval 128 msec, QTC 429 seconds. EKG is normal. She is having follow up because of this tinnitus in her ear. I have arranged for followup with Dr. Tex Gu who is one of our cardiologists, not seen her for a while. She will return to electrophysiology in 6 months with EKG, chest x-ray, CBC, BMP, magnesium, which will be done today and follow up. I will do a 3-day Zio patch monitor on her return. The 3-day Zio patch monitor was done from November 16, 2022 to November 18, 2022, average heart rate 65, minimum 51, maximum 89. She had 18 episodes of SVT, all of brief duration. No deterioration in atrial flutter/fibrillation, she was unaware of these rhythms. We will recommend a followup in 6 months with EKG, chest x-ray, CBC, BMP, magnesium and a 3-day Zio patch monitor. We will see her sooner if difficulties or problems arise. DICTATED BY: Jessica Yun/Cheko JOB# [id number] cc:Kayla Monterroso M.D. Excavator Backhoe Operator: Transcribed Clinic Note (myesha) ID: [id number] Author: AYO PAUL Signed by AYO PAUL MD on 01/31/2023 at 12:45 PM Document text: [facility] NOTE DEPARTMENT OF CARDIOLOGY [place] NAME: MONICA HERRING [facility] NO.: [id number] DATE OF SERVICE: 01/28/2023 Monica Herring is a 72-year-old female accompanied by her significant other Jatin Early who I have met in the past. She had just gotten a puppy when I saw her last. She and Jatin were very happy with the dog. She is having trouble with pain and tenderness in her left ear and has been seen by neurology on several locations and ENT, no one seems to have a solution to the problem. She is not having effort related chest pains, unusual shortness of breath, rapid heartbeat, or syncope. PAST MEDICAL HISTORY: See Epic notes. 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 MEDICATIONS: See Epic notes. She is taking vitamin D3 daily, multivitamins daily, PreserVision AREDS 2 daily. ALLERGIES: See Epic notes. NORVASC AND PLETAL. PHYSICAL EXAMINATION: Blood pressure 106/64, pulse 64, BMI is 19.75 kg/m2. The patient is alert, cooperative. Examination of the head: Pupils reactive. Neck without bruits or goiter. Chest: Lungs are clear. Heart reveals a regular rhythm. No murmurs or gallops. Abdomen: (more content not included)... Normal [facility] ECG COMPLETEon 01-28-2023 Atrial Rate 64 BPM [facility] Calculated P Cardwell 72 degrees [facility] Calculated R Cardwell 66 degrees [facility] Calculated T Cardwell 33 degrees [facility] P-R Interval 128 ms [facility] QRS Duration 92 ms [facility] QT Interval 416 ms [facility] QTC Calculation (Bazett) 429 ms [facility] Ventricular Rate 64 BPM [facility] ECG COMPLETE Ventricular Rate : 6 4 BPM Atrial Rate : 64 BPM P-R Interval : 128 ms QRS Duration : 92 ms Q-T Interval : 416 ms QTC Calculation(Bazett) : 429 ms Calculated P Cardwell : 72 degrees Calculated R Cardwell : 66 degrees Calculated T Cardwell : 33 degrees NORMAL SINUS RHYTHM NORMAL ECG Confirmed by PATRICIA WALLER M.D. ([id number]) on 01/28/2023 8:38:32 PM NAME : MONICA HERRING PID : [id number] : 1950 Gender : Female Race : ORD : [id number] Procedure Date : Jan 28 2023 10:20:57 Edit Date : Jan 28 2023 20:38:33 Diagnosis: NORMAL SINUS RHYTHM NORMAL ECG Confirmed by PATRICIA WALLER M.D. ([id number]) on 01/28/2023 8:38:32 PM Test Reason : I48.0 Paroxysmal atrial fibrillation (HCC) Location : 145 : [place]ARD Overread By : PATRICIA WALLER M.D. Edited By : PATRICIA WALLER M.D. Referred By : Humberto Acquired by : di, Normal [facility] Lipid 1996 panelon 3 Cholesterol [Mass/Vol] 125 mg/dL Normal <[address] [facility] Comment on above: Order Comment: Speci men Type: BLOOD SPECIMENOrdering Facility: [facility] Address: [address] [place] [address] Result Comment: <200 mg/dL, Desirable 200-239 mg/dL, Borderline high >239 mg/dL, High Performed By: #### 2 4321-2, 18874-7 ####[facility] LABCLIA [id number] [place] [address] [place]#### 28460-1 ####[facility] LABCLIA [id number] [address] [place] LABORATORYCLIA [id number] [place] [address] [facility] Cholesterol in HDL [Mass/Vol] 47 mg/dL Normal >[address] [facility] Comment on above: Order Comment: Speci men Type: BLOOD SPECIMENOrdering Facility: [facility] Address: [address] [place] [address] Result Comment: 40-5 9 mg/dL, Acceptable >59 mg/dL, High: Negative risk factor for coronary heart disease <40 mg/dL, Low: Positive risk factor for coronary heart disease Performed By: #### 2 4321-2, ####[facility] LABCLIA [id number] [address] [place]#### 13224-8 ####[facility] LABCLIA [id number] [address] [place] LABORATORYCLIA [id number] [address] STATES [facility] Cholesterol in LDL [Mass/Vol] 63 mg/dL Normal <[address] [facility] Comment on above: Order Comment: Speci men Type: BLOOD SPECIMENOrdering Facility: [facility] Address: [address] [place] [address] Result Comment: <100 mg/dL, Optimal 100-129 mg/dL, Near optimal/above optimal 130-159 mg/dL, Borderline high 160-189 mg/dL, High >189 mg/dL, Very high Secondary prevention optimal LDL Cholesterol levels are recommended to be < 70 mg/dL Performed By: #### 2 4321-2, ####[facility] LABCLIA [id number] [place] [address] [place]#### 47088-8 ####[facility] LABCLIA [id number] [place] [id number] [facility] [place] LABORATORYCLIA [id number] [address] Cholesterol in LDL/Cholesterol in HDL [Mass ratio] 1.34 {ratio} Normal <2.[address] [facility] Comment on above: Order Comment: Speci men Type: BLOOD SPECIMENOrdering Facility: [facility] Address: [address] [place] [address] Result Comment: Refe analyce: 1. National Cholesterol Education Program ATP III Guideline At-A-Glance Quick Desk Reference: National Heart, Lung, and Blood [place]. National Institutes of Health. 2001: NIH Publication No. 01-3305. 2. An International Atherosclerosis Society position paper: global recommendations for the management of dyslipidemia: executive summary, Atherosclerosis. 2014: 232(2):410-413. Performed By: #### 2 4320-2, ####[facility] LABCLIA [id number] [place] [address] [place]#### 15674-9 ####[facility] LABCLIA [id number] [address] LABORATORYCLIA [id number] [address] [place] Cholesterol in VLDL [Mass/Vol] 15 mg/dL Normal <[address] [facility] Comment on above: Order Comment: Speci men Type: BLOOD SPECIMENOrdering Facility: [facility] Address: [address] [place] [address] Performed By: #### 2 4321-2, ####[facility] LABCLIA [id number] [place] [address] [place]#### 60840-1 ####[facility] LABCLIA [id number] [place] [id number] [place] [facility] LABORATORYCLIA [id number] [place] [address] [place] Cholesterol non HDL [Mass/Vol] 78 mg/dL Normal <[address] [facility] Comment on above: Order Comment: Speci men Type: BLOOD SPECIMENOrdering Facility: [facility] Address: [address] [place] [address] Result Comment: <130 mg/dL, Optimal 130-159 mg/dL, Near optimal/above optimal 160-189 mg/dL, Borderline high 190-219 mg/dL, High >219 mg/dL, Very high Secondary prevention optimal non HDL Cholesterol levels are recommended to be <100 mg/dL Performed By: #### 2 4321-2, ####[facility] LABCLIA [id number] [place] [address] [place]#### 21266-2 ####[facility] LABCLIA [id number] [place] [address] [place] [facility] LABORATORYCLIA [id number] [place] [address] [place] Cholesterol.total/ Cholesterol in HDL [Mass ratio] 2.66 {ratio} Normal <5.[address] [facility] Comment on above: Order Comment: Speci men Type: BLOOD SPECIMENOrdering Facility: [facility] Address: [address] [place] [address] Performed By: #### 2 4321-2, ####[facility] LABCLIA [id number] [place] [address] [place]#### 41134-8 ####[facility] LABCLIA [id number] [address] STATES OF [facility] LABORATORYCLIA [id number] [place] [id number] [place] FASTING TIME 4 hrs Normal [facility] Comment on above: Order Comment: Speci men Type: BLOOD SPECIMENOrdering Facility: [facility] Address: [address] [place] [address] Result Comment: Tiffany ent had a swallow of 2% milk with her pills. Performed By: #### 2 4321-2, ####[facility] LABCLIA [id number] [place] [address] [place]#### 29307-3 ####[facility] LABCLIA [id number] [place] [address] [place] [facility] LABORATORYCLIA [id number] [place] [address] [place] Triglyceride [Mass/Vol] 74 mg/dL Normal <[address] [facility] Comment on above: Order Comment: Speci men Type: BLOOD SPECIMENOrdering Facility: [facility] Address: [address] [place] [address] Result Comment: <150 mg/dL, Normal 150-199 mg/dL, Borderline high 200-499 mg/dL, High >499 mg/dL, Very high Performed By: #### 2 4320-2, ####[facility] LABCLIA [id number] [place] [address] [place]#### 33237-5 ####[facility] LABCLIA [id number] [place] [id number] [place] [facility] LABORATORYCLIA [id number] [place] [address] [place] Magn[facility] Magnesium [Mass/Vol] 2.1 mg/dL Normal 1.7-2.[address] [facility] Comment on above: Order Comment: Speci men Type: BLOOD SPECIMENOrdering Facility: [facility] Address: [address] [place] [address] Performed By: #### 2 4321-2, ####[facility] LABCLIA [id number] [place] [address] [place]#### 72631-2 ####[facility] LABCLIA [id number] [id number] [address] [facility] [place] LABORATORYCLIA [id number] [place] [address] [facility] CNOVon 01-14-2023 CNOV Office Visit (NEADMN ) MONICA HERRING ([id number]) 1950 F Date Time Provider Department 01/14/23 12:30 PM EILEEN JACKSON NEADMN During your visit today, we recorded the following information about you: Pulse Blood pressure Weight Height 60/minute 124/63 58.5 kg 1.549 m Eileen Jackson MD 01/14/2023 2:36 PM Signed Patient and thought this appointment was the Tinnitus clinic I recommended 1 year ago during her visit with me then. is very agitated and loud about driving for 8 hrs to be here. I offered pain medication for her head and neck pain which is what I can help her with but she once again declined ans she did during her previous appointment. Appointment Eileen Jackson MD [facility] [place] Referring Provider: EILEEN JACKSON [[id number]] Allergies As of Date: 01/14/2023 Noted Allergy Reaction NORVASC (AMLODIPINE BESYLATE) 06/15/2018 7 - Swelling Comments: Pt.states made her feet swell PLETAL (CILOSTAZOL) 06/09/2016 7 - Swelling Comments: Feet swelling Date Reviewed: 01/14/2023 Reviewed by: Concha Alfredo OCCA - Fully Assessed Reason for Visit: Established Patient [175] Follow Up [171] Primary Visit Diagnosis:APPOINTMENT CANCELLED Other Visit Diagnosis:Pulsatile tinnitus, left ear [H93.A2] Order(s):[facility] [1272172] Order #: [id number]: 1 FUTURE Prescriptions as of 01/14/2023 - efinaconazole (JUBLIA) 10 % rosalio Apply to affected area once daily. - Fluticasone Furoate (FLONASE SENSIMIST) 27.5 mcg/actuation nasal spray Use 2 Sprays in each nostril once daily. - rosuvastatin (CRESTOR) 20 mg tablet take 1 tablet by mouth at bedtime - carvedilol (COREG) 12.5 mg tablet Take 1 tablet by mouth twice daily with meals. - hydrALAZINE (APRESOLINE) 50 mg tablet Take 1 tablet by mouth three times daily. - doxazosin (CARDURA) 2 mg tablet Take 1 tablet by mouth twice daily. - estradiol (ESTRACE) 0.01 % (0.1 mg/gram) vaginal cream Use 1 g vaginally once daily. - loratadine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 (BldA) [Mass fraction] 94 % Eileen Jackson MD Work Phone: [facility] 01-14-2023 11:39-0500 Systolic blood pressure 124 mm[Hg] Eileen Jackson MD Work Phone: [facility] 11-15-2022 09:55-0400 Body height 154.9 cm Risa Warner SUPERINTENDENT PIPELINES.PRIMARY HEALTH CARE NURSE Work Phone: [facility] 11-15-2022 09:55-0400 Body weight 60.78 kg Risa Warner SUPERINTENDENT PIPELINES.PRIMARY HEALTH CARE NURSE Work Phone: [facility] 11-15-2022 09:55-0400 Diastolic blood pressure 78 mm[Hg] Risa Warner SUPERINTENDENT PIPELINES.PRIMARY HEALTH CARE NURSE Work Phone: [facility] 11-15-2022 09:55-0400 Heart rate 63 /min Risa Warner SUPERINTENDENT PIPELINES.PRIMARY HEALTH CARE NURSE Work Phone: [facility] 11-15-2022 09:55-0400 Systolic blood pressure 135 mm[Hg] Risa Warner SUPERINTENDENT PIPELINES.PRIMARY HEALTH CARE NURSE Work Phone: [facility] 10-21-2022 10:09-0400 Body height 154.9 cm Ira Salgado SUPERINTENDENT PIPELINES.PRIMARY HEALTH CARE NURSE Work Phone: [facility] 10-21-2022 10:09-0400 Body weight 61.69 kg Ira Salgado SUPERINTENDENT PIPELINES.PRIMARY HEALTH CARE NURSE Work Phone: [facility] 10-21-2022 10:09-0400 Diastolic blood pressure 83 mm[Hg] Ira Salgado SUPERINTENDENT PIPELINES.PRIMARY HEALTH CARE NURSE Work Phone: [facility] 10-21-2022 10:09-0400 Heart rate 66 /min Ira Salgado SUPERINTENDENT PIPELINES.PRIMARY HEALTH CARE NURSE Work Phone: [facility] 10-21-2022 10:09-0400 Systolic blood pressure 144 mm[Hg] Ira Salgado SUPERINTENDENT PIPELINES.PRIMARY HEALTH CARE NURSE Work Phone: [facility] 07-28-2022 14:26-0400 Body height 154.9 cm Ayo Paul MD Work Phone: [facility] 07-28-2022 14:26-0400 Body weight 61.33 kg Ayo Paul MD Work Phone: [facility] 07-28-2022 14:26-0400 Diastolic blood pressure 82 mm[Hg] Ayo Paul MD Work Phone: [facility] 07-28-2022 14:26-0400 Heart rate 57 /min Ayo Paul MD Work Phone: [facility] 07-28-2022 14:26-0400 Systolic blood pressure 136 mm[Hg] Ayo Paul MD Work Phone: [facility] 01-26-2022 14:43-0500 Body height 154.9 cm Ayo Paul MD Work Phone: [facility] 01-26-2022 14:43-0500 Body weight 62.87 kg Ayo Paul MD Work Phone: [facility] 01-26-2022 14:43-0500 Diastolic blood pressure 58 mm[Hg] Ayo Paul MD Work Phone: [facility] 01-26-2022 14:43-0500 Heart rate 68 /min Ayo Paul MD Work Phone: [facility] 01-26-2022 14:43-0500 Systolic blood pressure 104 mm[Hg] Ayo Paul MD Work Phone: [facility] 12-09-2021 14:35-0400 Diastolic blood pressure 71 mm[Hg] Sergo Tucker MD Work Phone: [facility] 12-09-2021 14:35-0400 Heart rate 57 /min Sergo Tucker MD Work Phone: [facility] 12-09-2021 14:35-0400 Systolic blood pressure 150 mm[Hg] Sergo Tucker MD Work Phone: [facility] 08-11-2021 12:52-0400 Body weight 65.77 kg Rupesh Gu DO Work Phone: [facility] 08-11-2021 12:52-0400 Diastolic blood pressure 70 mm[Hg] Rupesh Gu DO Work Phone: [facility] 08-11-2021 12:52-0400 Heart rate 54 /min Rupesh Gu DO Work Phone: [facility] 08-11-2021 12:52-0400 SaO2% (BldA) [Mass fraction] 96 % Rupesh Gu DO Work Phone: [facility] 08-11-2021 12:52-0400 Systolic blood pressure 130 mm[Hg] Rupesh Gu DO Work Phone: [facility] Encounters Encounter Date Encounter Type Care Provider Facility Start: 05-17-2023 End: 05-19-2023 [facility] Start: 05-17-2023 End: 05-19-2023 Evaluation and management of inpatient Arabella Dutton DO Work Phone: [facility] Comment on above: Chest pain, unspecif ied type (Primary Dx); Right sided abdominal pain; 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; Mixed hyperlipidemia; Essential hypertension; Acute deep vein thrombosis (DVT) of distal vein of right lower extremity (HCC) Start: 05-17-2023 End: 05-17-2023 FQHC visit new patient Eden Yañez PRIMARY HEALTH CARE NURSE Work Phone: [facility] Work Phone: Start: 05-17-2023 End: 05-17-2023 Emergency department patient visit Izzy Chu DDS Work Phone: [facility] Work Phone: Start: 05-16-2023 ambulatory Izzy Chu DDS [facility] Start: 03-31-2023 ambulatory Matilde Salvador [facility] [place] Comment on above: Population [facility] ([facility] ) Start: 03-14-2023 End: 03-14-2023 ambulatory KAYLA MONTERROSO Facility:[facility] Start: 03-03-2023 End: 03-03-2023 ambulatory KAYLA MONTERROSO Facility:[facility] Start: 02-25-2023 End: 02-25-2023 ambulatory RENAE GERMAN Facility:[facility] Start: 02-02-2023 ambulatory Kayla Monterroso MD Work Phone: Internal Medicine [facility] Start: 01-28-2023 Refill Vielka vargas APRN.PRIMARY HEALTH CARE NURSE Work Phone: Cardiology Comment on above: Refill Request Start: 01-28-2023 End: 01-29-2023 ambulatory AYO PAUL Facility:[facility] Start: 01-28-2023 End: 01-28-2023 Patient encounter procedure Ayo Paul MD Work Phone: Cardiology Comment on above: Paroxysmal atrial fi brillation (HCC) (Primary Dx); Aortoiliac occlusive disease (HCC) Start: 01-14-2023 End: 01-14-2023 ambulatory EILEEN JACKSON Facility:[facility] Start: 01-14-2023 End: 01-14-2023 Patient encounter procedure Eileen Jackson MD Work Phone: Neurology Comment on above: APPOINTMENT CANCELLE D (Primary Dx); Pulsatile tinnitus, left ear Start: 11-15-2022 End: 11-15-2022 Patient encounter procedure Risa Warner SUPERINTENDENT PIPELINES.PRIMARY HEALTH CARE NURSE Work Phone: Kidney Medicine Comment on above: Benign hypertension with chronic kidney disease, stage III (HCC) (Primary Dx); Stage 3b chronic kidney disease (HCC); Hyperlipidemia, unspecified hyperlipidemia type Carotid artery steno sis, asymptomatic, bilateral (Primary Dx); PVD (peripheral vascular disease) (HCC); Aortoiliac occlusive disease (HCC) Start: 11-15-2022 End: 11-15-2022 ambulatory RISA WARNER Facility:[facility] Start: 10-21-2022 End: 10-21-2022 ambulatory IRA VELEZ Facility:[facility] Start: 10-21-2022 End: 10-21-2022 Patient encounter procedure Ira Skelton Terence SUPERINTENDENT PIPELINES.PRIMARY HEALTH CARE NURSE Work Phone: Internal Medicine Comment on above: Encounter for Medica re annual wellness exam (Primary Dx); 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; Mixed hyperlipidemia; Paroxysmal atrial fibrillation (HCC); Essential hypertension; Atherosclerotic peripheral vascular disease with intermittent claudication (HCC); CKD (chronic kidney disease) stage 4, GFR 15-29 ml/min (HCC) Start: 07-28-2022 End: 07-28-2022 ambulatory AYO Cyrus HUMBERTO Facility:[facility] Start: 07-28-2022 End: 07-28-2022 Patient encounter procedure Ayo Paul MD Work Phone: Cardiology Comment on above: Paroxysmal atrial fi brillation (HCC) (Primary Dx); Hypertension, unspecified type; Atherosclerotic peripheral vascular disease with intermittent claudication (HCC); Aortoiliac occlusive disease (HCC) Start: 07-28-2022 End: 07-29-2022 ambulatory AYO PAUL Facility:[facility] Start: 05-26-2022 Refill Kayla Monterroso MD Work Phone: [address] [place] [address] Comment on above: Refill Request Start: 03-03-2022 ambulatory Kayla Monterroso MD Work Phone: Internal Medicine [facility] Start: 02-23-2022 End: 02-24-[address] DOCTOR NANCE Facility: Start: 01-26-2022 End: 01-26-2022 Patient encounter procedure Ayo Paul MD Work Phone: Cardiology Comment on above: Paroxysmal atrial fi brillation (HCC) (Primary Dx); History of ST elevation myocardial infarction (STEMI); PAF (paroxysmal atrial fibrillation) (HCC) Start: 01-14-2022 End: 01-14-2022 ambulatory EILEEN JACKSON Facility:[facility] Start: 12-17-2021 ambulatory Gabriella allison MA [facility] [place] Comment on above: Population Health [facility] Out[facility] (Spouse of [facility] outreach pt) Start: 12-09-2021 End: 12-09-2021 Patient encounter procedure Serog Tucker MD Work Phone: Vascular Surgery Comment on above: Aortoiliac occlusive disease (HCC) (Primary Dx); Carotid artery stenosis, asymptomatic, bilateral Start: 12-08-2021 Refill Janey Patricia DO Work Phone: Kidney Medicine Comment on above: Refill Request Start: 12-07-2021 Telephone encounter Sergo bauman MD Work Phone: Vascular Surgery Comment on above: Appointment Start: 11-12-2021 ambulatory Leida burt APRN.PRIMARY HEALTH CARE NURSE Work Phone: Pulmonary Medicine Start: 11-11-2021 End: 11-11-2021 ambulatory Macrina Josephc PA-C Work Phone: Otolaryngology Comment on above: Pulsatile tinnitus, left ear (Primary Dx); Lightheadedness; Tinnitus of left ear; Tension-type headache, not intractable, unspecified chronicity pattern Start: 11-11-2021 End: 11-11-2021 Telemedicine consultation with patient Macrina Sukalac PA-C Work Phone: [facility] Start: 10-30-2021 Orders Only Renae Mancilla.PRIMARY HEALTH CARE NURSE Work Phone: Vascular Surgery Comment on above: PVD (peripheral vasc ular disease) (HCC) (Primary Dx) Start: 10-26-2021 End: 10-26-2021 Patient encounter procedure Kavitha Lou MD Work Phone: Otolaryngology Comment on above: Tension-type headach e, not intractable, unspecified chronicity pattern (Primary Dx); Tinnitus, unspecified laterality; Bilateral carotid artery stenosis Start: 10-12-2021 End: 10-12-2021 ambulatory Kayla Monterroso MD Work Phone: Internal Medicine Comment on above: Tinnitus, unspecifie d laterality (Primary Dx); Tension-type headache, not intractable, unspecified chronicity pattern Start: 10-12-2021 End: 10-12-2021 Telemedicine consultation with patient Kayla Monterroso MD Work Phone: [facility] Start: 09-18-2021 Refill Kayla Monterrsoo MD Work Phone: Internal Medicine Comment on above: Refill Request Start: 08-11-2021 End: 08-11-2021 Patient encounter procedure Rupesh Gu DO Work Phone: Cardiology Comment on above: Paroxysmal atrial fi brillation (HCC) (Primary Dx); 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; Hypertension, unspecified type; Mixed hyperlipidemia; Non-rheumatic mitral regurgitation; PVD (peripheral vascular disease) (HCC) Start: 06-26-2021 Orders Only Ayo Tovar Work Phone: Cardiology Comment on above: Paroxysmal atrial fi brillation (HCC) (Primary Dx) Start: 06-17-2021 Telephone encounter Risa Warner APRN.CNP Work Phone: Kidney Medicine Comment on above: Appointment Start: 09-30-2016 End: 10-01-2016 Ambulatory GILMER SHEPPARD Facility:[facility] Procedures Date Procedure Procedure Detail Performing Clinician Start: 05-19-2023 Natriuretic peptide Jose Telles MD Work Phone: Start: 05-19-2023 End: 05-19-2023 Ecg routine ecg w/least 12 lds w/i&r Jose Telles MD Work Phone: Start: 05-18-2023 End: 05-18-2023 Ecg routine ecg w/least 12 lds i&r only Jose Telles MD Work Phone: Start: 05-18-2023 End: 05-19-2023 Ecg routine ecg w/least 12 lds i&r only Laine Tejeda [facility] Work Phone: Start: 05-18-2023 Mri abdomen w/o & w/contrast material Luis Estrella MD Work Phone: Start: 05-18-2023 Blood count complete auto&auto difrntl wbc Laine Alfaroter [facility] Work Phone: Start: 05-17-2023 Intermittent pulse oximetry Luis Estrella MD Work Phone: Start: 05-17-2023 Assay of troponin quantitative Arabella Dutton DO Work Phone: Start: 05-17-2023 Urinalysis microscopic only Arabella Dutton DO Work Phone: Start: 05-17-2023 Urnls dip stick/tabl et rgnt auto w/o microscopy Arabella Dutton DO Work Phone: Start: 05-17-2023 Us abdominal real ti me w/image limited Arabella Dutton DO Work Phone: Start: 05-17-2023 Antibody hiv-1&hiv-2 single result dEen Yañez PRIMARY HEALTH CARE NURSE Work Phone: Start: 05-17-2023 Aspirin 81mg Oral Tab,EBOX Eden Yañez PRIMARY HEALTH CARE NURSE Work Phone: Start: 05-17-2023 Current tobacco non- user cad cap copd pv dm Eden Yañez PRIMARY HEALTH CARE NURSE Work Phone: Start: 05-17-2023 Most recent diastoli c blood pressure 80-89 mm hg Eden Yañez CNP Work Phone: Start: 05-17-2023 Most recent systolic blood pres>/equal 140 mm hg Eden Yañez PRIMARY HEALTH CARE NURSE Work Phone: Start: 05-17-2023 Nitroglycerine 0.4 M g Sublingual eACH, EBOX Eden Yañez PRIMARY HEALTH CARE NURSE Work Phone: Start: 05-17-2023 Pt-focused hlth risk assmt score doc stnd instrabdi Yañez PRIMARY HEALTH CARE NURSE Work Phone: Start: 05-17-2023 Ct thorax w/contrast material Arabella Dutton DO Work Phone: Start: 05-17-2023 Radiologic exam ches t single view Arabella De Dutton DO Work Phone: Start: 05-17-2023 End: 05-17-2023 Ecg routine ecg w/least 12 lds w/i&r Eden Yañez PRIMARY HEALTH CARE NURSE Work Phone: Start: 05-17-2023 End: 05-17-2023 Comprehensive metabolic panel Arabella R Nato DO Work Phone: Start: 01-28-2023 Ecg routine ecg w/le ast 12 lds i&r only Ayo aPul MD Work Phone: Start: 01-28-2023 Lipid 1996 panel - S kay or Plasma Vielka Pennington APRN.PRIMARY HEALTH CARE NURSE Work Phone: Start: 07-28-2022 Ecg routine ecg w/le ast 12 lds i&r only [facility] Start: 11-27-2020 Lipid 1996 panel - S kay or Plasma Risa Warner APRN.PRIMARY HEALTH CARE NURSE Work Phone: Start: 09-27-2020 Adult depression scr eening assessment Risa Warner APRN.PRIMARY HEALTH CARE NURSE Work Phone: Start: 07-29-2020 Mammography Risa smith APRN.PRIMARY HEALTH CARE NURSE Work Phone: Start: 03-28-2019 Colonoscopy Risa smith APRN.PRIMARY HEALTH CARE NURSE Work Phone: Plan of Treatment Date Care Activity Detail Author Start: 01-29-2028 Lipid 1996 panel - Serum or Plasma Lipid Screening [facility] Start: 01-29-2028 Lipid panel Lipid Screening [facility] Start: 01-28-2026 Diabetes Screening Diabetes Screenin g [facility] Start: 11-27-2025 Lipid 1996 panel - Serum or Plasma Lipid Screening [facility] Start: 11-27-2025 LIPID SCREEN LIPID SCREEN [facility] Start: 07-28-2025 DIABETES SCREEN DIABETES SCREEN [facility] Start: 07-28-2025 Diabetes Screening Diabetes Screenin g [facility] Start: 05-18-2024 GFR test (Diabetes, CKD 3-4, OR last GFR 15-59) GFR test (Diabetes, CKD 3-4, OR last GFR 15-59) [facility] Start: 03-28-2024 Colonoscopy COLONOSCOPY [facility] Start: 03-28-2024 COLORECTAL CANCER SCREENING COLORECTAL CANCER SCREENING [facility] Start: 03-28-2024 Screening for malign ant neoplasm of colon [facility] Start: 03-14-2024 BP Controlled (<130/80) BP Controlle d (<130/80) [facility] Start: 01-29-2024 BP Controlled (<130/80) BP Controlle d (<130/80) [facility] Start: 01-29-2024 Complete blood count Hemoglobin/Cheo tocrit [facility] Start: 01-29-2024 Creatinine measurement Serum Creatin ine [facility] Start: 01-29-2024 Hemoglobin/Hematocrit Hemoglobin/Hem atocrit [facility] Start: 01-29-2024 Hepatitis B surface antibody level LDL Cholesterol [facility] Start: 01-29-2024 Serum Creatinine Serum Creatinine Cl [facility] Start: 01-15-2024 BP Controlled (<130/80) BP Controlle d (<130/80) [facility] Start: 11-28-2023 DIABETES SCREEN DIABETES SCREEN [facility] Start: 11-16-2023 End: 01-16-2024 25-hydroxyvitamin D3 [Mass/volume] in Serum or Plasma VITAMIN D 25 HYDROXY Lab Routine Benign hypertension with chronic kidney disease, stage III (HCC) Stage 3b chronic kidney disease (HCC) Hyperlipidemia, unspecified hyperlipidemia type Expected: 11/16/2023, Expires: 01/16/2024 [facility] Work Phone: Comment on above: Expected: 11/16/2023 , Expires: 01/16/2024 Start: 11-16-2023 End: 01-16-2024 ALBUMIN/CREAT RATIO RND UR ALBUMIN/CREAT RATIO RND UR Lab Routine Benign hypertension with chronic kidney disease, stage III (HCC) Stage 3b chronic kidney disease (HCC) Hyperlipidemia, unspecified hyperlipidemia type Expected: 11/16/2023, Expires: 01/16/2024 [facility] Work Phone: Comment on above: Expected: 11/16/2023 , Expires: 01/16/2024 Start: 11-16-2023 End: 01-16-2024 CBC panel - Blood by Automated count CBC Lab Routine Benign hypertension with chronic kidney disease, stage III (HCC) Stage 3b chronic kidney disease (HCC) Hyperlipidemia, unspecified hyperlipidemia type Expected: 11/16/2023, Expires: 01/16/2024 [facility] Work Phone: Comment on above: Expected: 11/16/2023 , Expires: 01/16/2024 Start: 11-16-2023 End: 01-16-2024 Creatinine [Mass/volume] in Urine collected for unspecified duration CREATININE RANDOM UR Lab Routine Benign hypertension with chronic kidney disease, stage III (HCC) Stage 3b chronic kidney disease (HCC) Hyperlipidemia, unspecified hyperlipidemia type Expected: 11/16/2023, Expires: 01/16/2024 [facility] Work Phone: Comment on above: Expected: 11/16/2023 , Expires: 01/16/2024 Start: 11-16-2023 End: 01-16-2024 Parathyrin.intact [Mass/volume] in Serum or Plasma PTH INTACT BLD Lab Routine Benign hypertension with chronic kidney disease, stage III (HCC) Stage 3b chronic kidney disease (HCC) Hyperlipidemia, unspecified hyperlipidemia type Expected: 11/16/2023, Expires: 01/16/2024 [facility] Work Phone: Comment on above: Expected: 11/16/2023 , Expires: 01/16/2024 Start: 11-16-2023 End: 01-16-2024 Protein [Mass/volume] in Urine PROTEIN RANDOM UR Lab Routine Benign hypertension with chronic kidney disease, stage III (HCC) Stage 3b chronic kidney disease (HCC) Hyperlipidemia, unspecified hyperlipidemia type Expected: 11/16/2023, Expires: 01/16/2024 [facility] Work Phone: Comment on above: Expected: 11/16/2023 , Expires: 01/16/2024 Start: 11-16-2023 End: 01-16-2024 Renal function 2000 panel - Serum or Plasma RENAL FUNCTION PANEL Lab Routine Benign hypertension with chronic kidney disease, stage III (HCC) Stage 3b chronic kidney disease (HCC) Hyperlipidemia, unspecified hyperlipidemia type Expected: 11/16/2023, Expires: 01/16/2024 [facility] Work Phone: Comment on above: Expected: 11/16/2023 , Expires: 01/16/2024 Start: 10-22-2023 ANNUAL PCP TEAM POWER BRAKE OPERATOR SIMONA DISEASE VISIT ANNUAL PCP TEAM CHRONIC DISEASE VISIT [facility] Start: 10-22-2023 BP CONTROLLED (<130/80) BP CONTROLLE D (<130/80) [facility] Start: 10-22-2023 SHINGRIX VACCINE (1 of 2) SHINGRIX VACCINE (1 of 2) [facility] Comment on above: Postponed from 04/04 (Declined at this time) Start: 10-22-2023 Urine microalbumin profile [facility] Comment on above: Postponed from 06/10 (Declined at this time) Start: 07-29-2023 HEMOGLOBIN/HEMATOCRIT HEMOGLOBIN/HEM ATOCRIT [facility] Start: 07-29-2023 SERUM CREATININE SERUM CREATININE Cl [facility] Start: 07-27-2023 End: 10-26-2023 Basic metabolic 2000 panel - Serum or Plasma BASIC METABOLIC PNL Lab Routine Paroxysmal atrial fibrillation (HCC) Expected: 07/27/2023 (Approximate), Expires: 10/26/2023 [facility] Work Phone: Comment on above: Expected: 07/27/2023 (Approximate), Expires: 10/26/2023 Start: 07-27-2023 End: 10-26-2023 CBC W Auto Differential panel - Blood CBC + DIFF Lab Routine Paroxysmal atrial fibrillation (HCC) Expected: 07/27/2023 (Approximate), Expires: 10/26/2023 [facility] Work Phone: Comment on above: Expected: 07/27/2023 (Approximate), Expires: 10/26/2023 Start: 07-27-2023 End: 10-26-2023 Magnesium [Mass/volume] in Serum or Plasma MAGNESIUM BLD Lab Routine Paroxysmal atrial fibrillation (HCC) Expected: 07/27/2023 (Approximate), Expires: 10/26/2023 [facility] Work Phone: Comment on above: Expected: 07/27/2023 (Approximate), Expires: 10/26/2023 Start: 07-27-2023 End: 02-27-2024 Radiologic exam chest 2 views XR CHEST 2V FRONTAL/LAT Radiology Routine Paroxysmal atrial fibrillation (HCC) Expected: 07/27/2023 (Approximate), Expires: 02/27/2024 [facility] Work Phone: Comment on above: Expected: 07/27/2023 (Approximate), Expires: 02/27/2024 Start: 05-17-2023 End: 05-17-2023 Patient education based on identified need [facility] Start: 02-28-2023 Advance Directive Discussion Advance Directive Discussion [facility] Start: 02-28-2023 Annual Wellness Visi t (Medicare Advantage) Annual Wellness Visit (Medicare Advantage) [facility] Start: 02-28-2023 Depression Assessment Depression Ass essment [facility] Start: 01-27-2023 End: 03-29-2023 Basic metabolic 2000 panel - Serum or Plasma BASIC METABOLIC PNL Lab Routine Paroxysmal atrial fibrillation (HCC) Hypertension, unspecified type Atherosclerotic peripheral vascular disease with intermittent claudication (HCC) Expected: 01/27/2023, Expires: 03/29/2023 [facility] Work Phone: Comment on above: Expected: 01/27/2023 , Expires: 03/29/2023 Start: 01-27-2023 End: 03-29-2023 CBC W Auto Differential panel - Blood CBC + DIFF Lab Routine Paroxysmal atrial fibrillation (HCC) Hypertension, unspecified type Atherosclerotic peripheral vascular disease with intermittent claudication (HCC) Expected: 01/27/2023, Expires: 03/29/2023 [facility] Work Phone: Comment on above: Expected: 01/27/2023 , Expires: 03/29/2023 Start: 01-27-2023 End: 03-29-2023 Magnesium [Mass/volume] in Serum or Plasma MAGNESIUM BLD Lab Routine Paroxysmal atrial fibrillation (HCC) Hypertension, unspecified type Atherosclerotic peripheral vascular disease with intermittent claudication (HCC) Expected: 01/27/2023, Expires: 03/29/2023 [facility] Work Phone: Comment on above: Expected: 01/27/2023 , Expires: 03/29/2023 Start: 01-26-2023 BP CONTROLLED (<130/80) BP CONTROLLE D (<130/80) [facility] Start: 01-21-2023 End: 03-23-2023 Lipid 1996 panel - Serum or Plasma LIPID PANEL BASIC Lab Routine 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 Expected: 01/21/2023, Expires: 03/23/2023 [facility] Work Phone: Comment on above: Expected: 01/21/2023 , Expires: 03/23/2023 Start: 11-22-2022 End: 07-29-2023 OUTSIDE VENDOR CARDIAC OUTPATIENT EXTENDED RHYTHM RECORDING (WITHOUT TELEMETRY) OUTSIDE VENDOR CARDIAC OUTPATIENT EXTENDED RHYTHM RECORDING (WITHOUT TELEMETRY) Holter Routine Paroxysmal atrial fibrillation (HCC) Hypertension, unspecified type Atherosclerotic peripheral vascular disease with intermittent claudication (HCC) Expected: 11/22/2022, Expires: 07/29/2023 [facility] Work Phone: Comment on above: Expected: 11/22/2022 , Expires: 07/29/2023 Start: 10-29-2022 Influenza vaccination C [facility] Start: 10-26-2022 HEMOGLOBIN/HEMATOCRIT HEMOGLOBIN/HEM ATOCRIT [facility] Start: 10-26-2022 SERUM CREATININE SERUM CREATININE Cl [facility] Start: 10-12-2022 ANNUAL PCP TEAM POWER BRAKE OPERATOR SIMONA DISEASE VISIT ANNUAL PCP TEAM CHRONIC DISEASE VISIT [facility] Start: 07-26-2022 End: 09-25-2022 Basic metabolic 2000 panel - Serum or Plasma BASIC METABOLIC PNL Lab Routine Paroxysmal atrial fibrillation (HCC) History of ST elevation myocardial infarction (STEMI) PAF (paroxysmal atrial fibrillation) (HCC) Expected: 07/26/2022, Expires: 09/25/2022 [facility] Work Phone: Comment on above: Expected: 07/26/2022 , Expires: 09/25/2022 Start: 07-26-2022 End: 09-25-2022 CBC W Auto Differential panel - Blood CBC + DIFF Lab Routine Paroxysmal atrial fibrillation (HCC) History of ST elevation myocardial infarction (STEMI) PAF (paroxysmal atrial fibrillation) (HCC) Expected: 07/26/2022, Expires: 09/25/2022 [facility] Work Phone: Comment on above: Expected: 07/26/2022 , Expires: 09/25/2022 Start: 07-26-2022 End: 09-25-2022 Magnesium [Mass/volume] in Serum or Plasma MAGNESIUM BLD Lab Routine Paroxysmal atrial fibrillation (HCC) History of ST elevation myocardial infarction (STEMI) PAF (paroxysmal atrial fibrillation) (HCC) Expected: 07/26/2022, Expires: 09/25/2022 [facility] Work Phone: Comment on above: Expected: 07/26/2022 , Expires: 09/25/2022 Start: 04-28-2022 End: 01-26-2023 OUTSIDE VENDOR CARDIAC OUTPATIENT EXTENDED RHYTHM RECORDING (WITHOUT TELEMETRY) OUTSIDE VENDOR CARDIAC OUTPATIENT EXTENDED RHYTHM RECORDING (WITHOUT TELEMETRY) Holter Routine Paroxysmal atrial fibrillation (HCC) History of ST elevation myocardial infarction (STEMI) PAF (paroxysmal atrial fibrillation) (HCC) Expected: 04/28/2022, Expires: 01/26/2023 [facility] Work Phone: Comment on above: Expected: 04/28/2022 , Expires: 01/26/2023 Start: 03-23-2022 ANNUAL PCP TEAM POWER BRAKE OPERATOR SIMONA DISEASE VISIT ANNUAL PCP TEAM CHRONIC DISEASE VISIT [facility] Start: 03-23-2022 BP CONTROLLED (<130/80) BP CONTROLLE D (<130/80) [facility] Start: 02-28-2022 ADVANCE DIRECTIVE DISCUSSION ADVANCE DIRECTIVE DISCUSSION [facility] Start: 02-28-2022 DEPRESSION ASSESSMENT DEPRESSION ASS ESSMENT [facility] Start: 02-10-2022 End: 04-12-2022 Lipid 1996 panel - Serum or Plasma LIPID PANEL BASIC Lab Routine Mixed hyperlipidemia Expected: 02/10/2022 (Approximate), Expires: 04/12/2022 [facility] Work Phone: Comment on above: Expected: 02/10/2022 (Approximate), Expires: 04/12/2022 Start: 11-27-2021 Hepatitis B surface antibody level LDL CHOLESTEROL [facility] Start: 11-27-2021 SERUM CREATININE SERUM CREATININE Cl [facility] Start: 10-29-2021 Influenza vaccination INFLUENZA (#1) [facility] Start: 09-27-2021 Adult depression screening assessment DEPRESSION SCREENING [facility] Start: 09-18-2021 COVID-19 VACCINE (#1) COVID-19 VACCI NE (#1) [facility] Comment on above: Postponed from 04/04 (Declined at this time) Start: 09-18-2021 COVID-19 VACCINE (1) COVID-19 VACCIN E (1) [facility] Comment on above: Postponed from 04/04 (Declined at this time) Start: 07-29-2021 Mammography [facility] Start: 07-29-2021 Screening for malign ant neoplasm of breast Mammogram Screening [facility] Start: 07-18-2021 HEMOGLOBIN/HEMATOCRIT HEMOGLOBIN/HEM ATOCRIT [facility] Start: 03-20-2021 BP CONTROLLED (<130/80) BP CONTROLLE D (<130/80) [facility] Start: 02-28-2021 ADVANCE DIRECTIVE DISCUSSION ADVANCE DIRECTIVE DISCUSSION [facility] Start: 02-28-2021 DEPRESSION ASSESSMENT DEPRESSION ASS ESSMENT [facility] Start: 06-10-2016 DTaP/Tdap/Td vaccine (1 - Tdap) DTaP/Tdap/Td vaccine (1 - Tdap) [facility] Start: 06-10-2016 Urine microalbumin profile DTAP,TDAP,TD (1 - Tdap) [facility] Start: 2011 Respiratory Syncytia l Virus (RSV) or age 60 yrs+ (1 - 1-dose 60+ series) Respiratory Syncytial Virus (RSV) or age 60 yrs+ (1 - 1-dose 60+ series) [facility] Start: 2011 RSV Vaccine (1 - 1-d ose 60+ series) RSV Vaccine (1 - 1-dose 60+ series) [facility] Start: 2001 Screening for malign ant neoplasm of breast Breast cancer screen [facility] Start: 2001 Shingles vaccine (1 of 2) Shingles vaccine (1 of 2) [facility] Start: 2001 SHINGRIX VACCINE (1 of 2) SHINGRIX VACCINE (1 of 2) [facility] Start: 1996 COLOGUARD (FIT-DNA) COLOGUARD (FIT-D NA) [facility] Start: [address] COLONOGRAPHY [facility] Start: 1996 FECAL OCCULT BLOOD FECAL OCCULT BLOO D [facility] Start: 1996 Screening for malign ant neoplasm of colon [facility] Start: 1996 SIGMOIDOSCOPY SIGMOIDOSCOPY [facility] Start: 1969 Hepatitis C screening Hepatitis C sc reen [facility] Start: 1963 Depression Screen Depression Screen [facility] Start: 1961 Lipid panel Lipids [facility] Start: 1950 COVID-19 VACCINE (#1) COVID-19 VACCI NE (#1) [facility] End: 08-24-2023 CBC W Auto Differential panel - Blood CBC auto differential Lab Routine Tomorrow AM for 99 Occurrences starting 05/18/2023 until 08/24/2023, 2 completed [facility] Comment on above: Tomorrow AM for 99 O ccurrences starting 05/18/2023 until 08/24/2023, 2 completed End: 08-24-2023 Comprehensive Metabolic Panel w/ Reflex to MG Comprehensive Metabolic Panel w/ Reflex to MG Lab Routine Tomorrow AM for 99 Occurrences starting 05/18/2023 until 08/24/2023, 2 completed [facility] Comment on above: Tomorrow AM for 99 O ccurrences starting 05/18/2023 until 08/24/2023, 2 completed End: 12-11-2022 Ct orbit sella/post fossa/ear w/o contrast matrl CT TEMP BONES WO IVCON Radiology Routine Pulsatile tinnitus, left ear Lightheadedness 1 Occurrences starting 11/11/2021 until 12/11/2022 [facility] Work Phone: Comment on above: 1 Occurrences starti ng 11/11/2021 until 12/11/2022 End: 05-18-2023 Culture, Urine [employer] Comment on above: One Time for 1 Occur rences starting 05/18/2023 until 05/18/2023 End: 08-11-2022 ECG COMPLETE ECG COMPLETE ECG Routine Paroxysmal atrial fibrillation (HCC) 1 Occurrences starting 08/11/2021 until 08/11/2022 [facility] Work Phone: Comment on above: 1 Occurrences starti ng 08/11/2021 until 08/11/2022 End: 01-26-2023 ECG COMPLETE ECG COMPLETE ECG Routine Paroxysmal atrial fibrillation (HCC) History of ST elevation myocardial infarction (STEMI) PAF (paroxysmal atrial fibrillation) (HCC) 1 Occurrences starting 01/26/2022 until 01/26/2023 [facility] Work Phone: Comment on above: 1 Occurrences starti ng 01/26/2022 until 01/26/2023 End: 07-29-2023 ECG COMPLETE ECG COMPLETE ECG Routine Paroxysmal atrial fibrillation (HCC) Hypertension, unspecified type Atherosclerotic peripheral vascular disease with intermittent claudication (HCC) 1 Occurrences starting 07/28/2022 until 07/29/2023 [facility] Work Phone: Comment on above: 1 Occurrences starti ng 07/28/2022 until 07/29/2023 ECG COMPLETE ECG COMPLETE ECG 01/28/2023 10:20 AM EST [facility] End: 05-18-2023 Echo (TTE) complete (PRN contrast/bubble/strain/ 3D) Echo (TTE) complete (PRN contrast/bubble/strain/3D) CV Echocardiography Routine Chest pain, unspecified type Right sided abdominal pain 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 Mixed hyperlipidemia Essential hypertension Acute deep vein thrombosis (DVT) of distal vein of right lower extremity (HCC) One Time for 1 Occurrences starting 05/18/2023 until 05/18/2023 [employer] Comment on above: One Time for 1 Occur rences starting 05/18/2023 until 05/18/2023 EKG 12 Lead EKG 12 Lead ECG Routine 05/19/2023 5:18 AM EDT [employer] End: 05-19-2023 Hemoglobin A1c/Hemoglobin.total in Blood Hemoglobin A1C Lab Routine Tomorrow AM for 1 Occurrences starting 05/19/2023 until 05/19/2023 [employer] Comment on above: Tomorrow AM for 1 Oc currences starting 05/19/2023 until 05/19/2023 Hemoglobin A1c/Hemoglobin.total in Blood Hemoglobin A1C Lab Routine 05/19/2023 5:30 AM EDT [employer] End: 05-19-2023 Lipid panel Lipid Panel Lab Routine Tomorrow AM for 1 Occurrences starting 05/19/2023 until 05/19/2023 [employer] Comment on above: Tomorrow AM for 1 Oc currences starting 05/19/2023 until 05/19/2023 Lipid panel Lipid Panel Lab Routine 05/19/2023 5:30 AM EDT [employer] End: 04-02-2023 ESTHER SCREENING ESTHER SCREENING Radiology Routine Encounter for screening mammogram for breast cancer 1 Occurrences starting 03/03/2022 until 04/02/2023 [facility] Work Phone: Comment on above: 1 Occurrences starti ng 03/03/2022 until 04/02/2023 End: 03-03-2024 ESTHER SCREENING ESTHER SCREENING Radiology Routine Encounter for screening mammogram for breast cancer 1 Occurrences starting 02/02/2023 until 03/03/2024 [facility] Work Phone: Comment on above: 1 Occurrences starti ng 02/02/2023 until 03/03/2024 MR Abdomen WO and W contrast IV MRI ABDOMEN W WO CONTRAST MRCP Imaging Routine 05/18/2023 1:05 PM EDT [employer] OUTSIDE VENDOR CARDI AC OUTPATIENT EXTENDED RHYTHM RECORDING (WITHOUT TELEMETRY) OUTSIDE VENDOR CARDIAC OUTPATIENT EXTENDED RHYTHM RECORDING (WITHOUT TELEMETRY) Holter Routine Paroxysmal atrial fibrillation (HCC) Ordered: 06/26/2021 [facility] Work Phone: Comment on above: Ordered: 06/26/2021 OUTSIDE VENDOR CARDI AC OUTPATIENT EXTENDED RHYTHM RECORDING (WITHOUT TELEMETRY) OUTSIDE VENDOR CARDIAC OUTPATIENT EXTENDED RHYTHM RECORDING (WITHOUT TELEMETRY) Holter Routine Paroxysmal atrial fibrillation (HCC) History of ST elevation myocardial infarction (STEMI) PAF (paroxysmal atrial fibrillation) (HCC) Ordered: 01/26/2022 [facility] Work Phone: Comment on above: Ordered: 01/26/2022 OUTSIDE VENDOR CARDI AC OUTPATIENT EXTENDED RHYTHM RECORDING (WITHOUT TELEMETRY) OUTSIDE VENDOR CARDIAC OUTPATIENT EXTENDED RHYTHM RECORDING (WITHOUT TELEMETRY) Holter Routine Paroxysmal atrial fibrillation (HCC) Ordered: 01/28/2023 [facility] Work Phone: Comment on above: Ordered: 01/28/2023 Oxygen therapy [[facility]] Initiate Oxygen Therapy Protocol Respiratory Care Routine As Needed until discontinued starting 05/17/2023 [facility] Comment on above: As Needed until disc ontinued starting 05/17/2023 End: 10-30-2022 PVR ANK PRESS [facility] PVR ANK PRESS [facility] Vascular Lab Routine PVD (peripheral vascular disease) ([facility]) 1 Occurrences starting 10/30/2021 until 10/30/2022 [facility] Work Phone: Comment on above: 1 Occurrences starti ng 10/30/2021 until 10/30/2022 End: 11-16-2023 PVR ANK PRESS [facility] PVR ANK PRESS [facility] Vascular Lab Routine PVD (peripheral vascular disease) (HCC) Aortoiliac occlusive disease (HCC) Carotid artery stenosis, asymptomatic, bilateral 1 Occurrences starting 11/15/2022 until 11/16/2023 [facility] Work Phone: Comment on above: 1 Occurrences starti ng 11/15/2022 until 11/16/2023 End: 02-25-2023 Radiologic exam chest 2 views XR CHEST 2V FRONTAL/LAT Radiology Routine Paroxysmal atrial fibrillation (HCC) History of ST elevation myocardial infarction (STEMI) PAF (paroxysmal atrial fibrillation) (HCC) 1 Occurrences starting 01/26/2022 until 02/25/2023 [facility] Work Phone: Comment on above: 1 Occurrences starti ng 01/26/2022 until 02/25/2023 End: 01-15-2024 [facility] Audiology Routine Pulsatile tinnitus, left ear 1 Occurrences starting 01/14/2023 until 01/15/2024 [facility] Work Phone: Comment on above: 1 Occurrences starti ng 01/14/2023 until 01/15/2024 End: 11-16-2023 US ABD AORTA COMPLETE [facility] US ABD AORTA COMPLETE [facility] Vascular Lab Routine PVD (peripheral vascular disease) (HCC) Aortoiliac occlusive disease (HCC) Carotid artery stenosis, asymptomatic, bilateral 1 Occurrences starting 11/15/2022 until 11/16/2023 [facility] Work Phone: Comment on above: 1 Occurrences starti ng 11/15/2022 until 11/16/2023 End: 11-16-2023 US CAROTID ARTERIES [facility] US CAROTID ARTERIES [facility] Vascular Lab Routine PVD (peripheral vascular disease) (HCC) Aortoiliac occlusive disease (HCC) Carotid artery stenosis, asymptomatic, bilateral 1 Occurrences starting 11/15/2022 until 11/16/2023 [facility] Work Phone: Comment on above: 1 Occurrences starti ng 11/15/2022 until 11/16/2023 [facility] Immunizations Immunization Date Immunization Notes Care Provider Fa [facility] 11-27-2020 influenza, high-dose , quadrivalent vaccine (FLUZONE HIGH DOSE QUADRIVALENT) Risa Warner APRN.CNP Work Phone: [facility] 11-27-2020 influenza virus vacc ine, unspecified formulation Risa Warner APRN.PRIMARY HEALTH CARE NURSE Work Phone: [facility] 01-21-2021 influenza, high-dose , quadrivalent vaccine (FLUZONE HIGH DOSE QUADRIVALENT) Risa Warner APRN.PRIMARY HEALTH CARE NURSE Work Phone: [facility] 12-01-2018 influenza, high dose seasonal, preservative-free Risa Warner APRN.PRIMARY HEALTH CARE NURSE Work Phone: [facility] Work Phone: 12-01-2018 pneumococcal polysaccharide vaccine, 23 valent Risa Warner SUPERINTENDENT PIPELINES.PRIMARY HEALTH CARE NURSE Work Phone: [facility] Work Phone: 01-25-2017 influenza, high dose seasonal, preservative-free Risa Warner SUPERINTENDENT PIPELINES.PRIMARY HEALTH CARE NURSE Work Phone: [facility] 06-09-2016 pneumococcal conjuga te vaccine, 13 valent Risa Warner SUPERINTENDENT PIPELINES.PRIMARY HEALTH CARE NURSE Work Phone: [facility] 06-09-2016 tetanus and diphther ia toxoids, adsorbed, preservative free, for adult use (5 Lf of tetanus toxoid and 2 Lf of diphtheria toxoid) Risa Warner APRN.PRIMARY HEALTH CARE NURSE Work Phone: [facility] Payers Date Payer Category Payer Unknown [id number] 2022 Unknown [id number] 2021 Medicare UHC AAR MEDICAR E UHC AARP MEDICARE HMO [id number] 2021-Present [phone] [address] [address] [place] [address] [facility] [id number] 2021 Medicare [id number] 2021 Medicare [id number] 2015 Unknown [id number] 1959 Medicare [id number] 1959 Private Health Insurance [id number] 1950 Unknown [id number] 1950 Unknown [id number] [facility] [id number] Social History Date Type Detail Facility Start: 08-19-2015 End: 02-17-2016 Tobacco smoking status NHIS Ex-smoker [facility] Work Phone: End: 02-28-2009 History of tobacco use Current smoker [facility] Work Phone: End: 02-28-2009 History of tobacco use Cigarette Smoker [facility] Work Phone: Start: 02-17-2016 End: 05-18-2023 Cigarettes smoked current (pack per day) - Reported 1.5 [facility] Start: 02-17-2016 End: 11-10-2021 Tobacco use and exposure Smokeless tobacco non-user [facility] Work Phone: Start: 03-23-2021 End: 05-18-2023 Alcohol intake Current drinker of alcohol (finding) [facility] Start: 09-28-2020 History SDOH Alcohol Frequency 1 [facility] Start: 09-28-2020 History SDOH Alcohol Std Drinks 98 [facility] Start: 08-19-2015 End: 06-30-2016 History SDOH Alcohol Comment social [facility] Start: 09-28-2020 History SDOH Social Connections Phone 3 [facility] Start: 09-28-2020 History SDOH Social Connections Get Together 2 [facility] Start: 09-28-2020 History SDOH Social Connections Living 4 [facility] Start: 09-28-2020 History SDOH Physica l Activity DPW 5 [facility] Start: 09-27-2020 Education 10 [facility] Start: 1950 Sex Assigned At Female C [facility] Start: 06-07-2021 End: 01-26-2022 Exposure to SARS-CoV-2 (event) Not sure [facility] Start: 10-02-2021 End: 11-11-2021 Exposure to SARS-CoV-2 (event) Unable to assess [facility] Work Phone: Start: 09-27-2020 End: 05-18-2023 Social connection and isolation panel [facility] Do you belong to any clubs or organizations such as orthodox groups, unions, fraternal or athletic groups, or school groups? Patient refused [facility] Are you now , , , , never or living with a partner? [facility] How often to you hav e a drink containing alcohol? Never [facility] Do you feel stress - tense, restless, nervous, or anxious, or unable to sleep at night because your mind is troubled all the time - these days [OSQ] Not at all [facility] (I/We) worried cristela er (my/our) food would run out before (I/we) got money to buy more. Never true [facility] In the past 12 month s, was there a time when you were not able to pay the mortgage or rent on time? No [facility] Start: 03-26-2019 Gender identity Identifies as female gender (finding) [facility] Assertion Sexually active (finding) [facility] Assertion Gender identity finding (finding) [facility] Assertion Finding of sexua l orientation (finding) [facility] Tobacco smoking status Unknown i f ever smoked [facility] Work Phone: Start: 08-19-2015 Tobacco use and exposure Former smokeless tobacco user [facility] [employer] End: 02-28-2009 History of tobacco use User of smokeless tobacco [facility] [employer] Start: 1950 Sex Assigned At Not on file [facility]: Highlighted row Assertion Current drinker of alcohol (finding) [facility] NEGATED: Highlighted row Assertion Finding relating to drug misuse behavior (finding) [facility] NEGATED: Highlighted row Assertion Exposure to pollution (event) [facility] NEGATED: Highlighted row Assertion [facility] Mental Status Date Assessment Result Facility Cognitive function Oriented to t sandra, place, and person Oriented to person, time and place (finding) [facility] Work Phone: Clinical Notes 08-17-2018 to 05-19-2023 Denisse Thompson RN - 05/19/2023 10:30 AM Radha Vides LSW - 05/19/2023 9:23 AM Denisse Meza RN - 05/19/2023 8:00 AM Yesy Argueta RN - 05/19/2023 7:30 AM EDTAttachments Note Date & Type Note Facility 05-19-2023 History of Presen t illness Narrative Discharge instructions given to pt and significant other. No questions, pt verbalized understanding all instructions. Pt aware of follow up appointment as listed on AVS. Pt d/c'd off unit at this time, via wheelchair, with significant other, to home. Belongings in hand. No issues noted. IMM letter provided to patient. Patient offered four hours to make informed decision regarding appeal process; patient agreeable to discharge. TAMARA Blankenship Pt is A&Ox4, calm and cooperative. Assmt and VS completed as charted, see flow sheet. Pt c/o pain to right abdomen that radiates up to chest area. No ssx of distress at this time. Pt resting in bed, call light within reach, has eaten 100% of breakfast, denies further needs. Will continue to monitor. Dr. Estrella and Laine STOVE MOUNTER at bedside. Dr Telles notified of low blood pressures. IV amiodarone discontinued at this time. Dr Telles notified that patient converted to NS. IV amiodarone to be decreased to 0.5 and continue through the night. Physical Geographer present at bedside, vitals and assessment as charted. Patient a/o, sitting up in bed. Patient c/o right abdomen pain and lower back spasms, see MAR. Patient denies any further needs. Call light and bedside table within reach. Patient transferred to ICU room 308 at this time. Patient's continuous plate keeper showing an A-fib rhythm. 12 lead EKG done at this time. 12 lead EKG given to Laine OLIVIA for review. Vitals completed. Patient has no current reports of shortness of breath or palpitations, but does report remembering feeling them this morning. Discharge planning assessment attempted numerous times throughout this day. Will attempt again tomorrow and assist with discharge planning as appropriate. TAMARA Robles 05/18/2023 Comprehensive Nutrition Assessment Type and Reason for Visit: Initial Nutrition Recommendations/Plan: Readvance diet post MRCP as GI feasible. Malnutrition Assessment: Malnutrition Status: At risk for malnutrition (Comment) (05/18/23 [id number]) Context: Acute Illness Findings of the 6 clinical characteristics of malnutrition: Energy Intake: Mild decrease in energy intake (Comment) (npo) Weight Loss: No significant weight loss Body Fat Loss: No significant body fat loss Muscle Mass Loss: No significant muscle mass loss Fluid Accumulation: Mild Extremities Remote Sensing Scientist Strength: Not Performed Nutrition Assessment: Inadequate nutrient intakes r/t altered GI status, AEB NPO for MRCP with right flank pain. 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 Expect adequate PO post procedure. Will monitor for dietary needs. Nutrition Related Findings: trace BLE edema. + b/s. Wound Type: None Current Nutrition Intake & Therapies: Average Meal Intake: NPO Average Supplements Intake: NPO Diet NPO Anthropometric Measures: Height: 154.9 cm (5' 1 ) [place] Body Weight (IBW): 105 lbs (48 kg) Admission Body Weight: 60.3 kg (133 lb) Current Body Weight: 60.9 kg (134 lb 4.2 oz), 127.9 % IBW. Weight Source: Bed Scale Current BMI (kg/m2): 25.4 Usual Body Weight: 60.8 kg (134 lb) % Weight Change (Calculated): 0.2 Weight Adjustment For: No Adjustment BMI Categories: Overweight (BMI 25.0-29.9) Estimated Daily Nutrient Needs: Energy Requirements Based On: Kcal/kg Weight Used for Energy Requirements: Current Energy (kcal/day): 7471-0260 (18-23) Weight Used for Protein Requirements: [place] Protein (g/day): 57-67 (1.2-1.4) Method Used for Fluid Requirements: 1 ml/kcal Fluid (ml/day): 1400 Nutrition Diagnosis: Inadequate oral intake related to altered GI function as evidenced by NPO or clear liquid status due to medical condition Lab Results Component Value Date NA 136 05/18/2023 K 4.1 05/18/2023 CL 104 05/18/2023 CO2 22 05/18/2023 BUN 23 05/18/2023 CREATININE 1.3 (H) 05/18/2023 GLUCOSE 83 05/18/2023 CALCIUM 8.0 (L) 05/18/2023 PROT 5.4 (L) 05/18/2023 LABALBU 3.1 (L) 05/18/2023 BILITOT 0.6 05/18/2023 ALKPHOS 58 05/18/2023 AST 13 05/18/2023 ALT 5 05/18/2023 LABGLOM 44 (L) 05/18/2023 GFRAA 55 (L) 08/21/2015 AGRATIO 1.3 05/18/2023 No results found for: LABA1C No results found for: VITD25 Nutrition Interventions: Food and/or Nutrient Delivery: Continue NPO Nutrition Education/Counseling: No recommendation at this time Coordination of Nutrition Care: Continue to monitor while inpatient Plan of Care discussed with: patient Goals: Goals: Meet at least 75% of estimated needs Nutrition Monitoring and Evaluation: Behavioral-Environmental Outcomes: None Identified Food/Nutrient Intake Outcomes: Diet Advancement/Tolerance Physical Signs/Symptoms Outcomes: Biochemical Data, Weight, Fluid Status or Edema Discharge Planning: Too soon to determine Jesus Kenyon RD, [place]UBIA Contact: [phone] Patient resting in bed, assessment and vitals complete, patient alert and orient x4, states pain is 5/10 in right side that radiates up to right side, states pain is on-going, refuses pain medication at this time states pain is tolerable at this time, no other complaints voiced, call light within reach. Physical Geographer notified FARHAT Durham of patient having increased heart rate for short period of time. No new orders at this time. Patient resting comfortably at this time and asymptomatic. RAY Marina at bedside with web content writer speaking to significant other. Patient's significant other approached web content writer asking what the plan was with the patient. Physical Geographer explained to him that patient has a GI consult with Dr. Lindsey tomorrow and a possible MRI. Patient's significant other states so this is why everyone dies here and you will let her tonight before anything is done tonight. Physical Geographer explained to him that multiple testing was done in the ER, that patient is stable, and patient is on continuous monitoring that web content writer can see at all times. Patient's significant other also explained that if patient needs surgery here that patient will absolutely not be getting any surgery done at this hospital. Physical Geographer explained to him that he can talk to shuttle preparation supervisor RAY Marina. Physical Geographer called shuttle preparation supervisor. Patient arrived to web content writer from ED. Physical Geographer received report from ED nurse RAY Mariano. Patient ambulated to the bed with assistance and tolerated well. Patient alert and oriented x4. Able to answer questions appropriately and follow commands. Vitals and assessment as charted. Admission navigator completed. Bed alarm on, bed locked, gripper socks on, call light within reach and able to use appropriately. Will continue to monitor this shift. Patient denies any further needs at this time. documented in this encounter [facility] 05-19-2023 [facility] Discharg e instructions Denisse Thompson RN - 05/19/2023 9:58 AM EDT Activity as tolerated Denisse Thompson RN - 05/19/2023 9:58 AM EDT Good nutrition is important when healing from an illness, injury, or surgery. Follow any nutrition recommendations given to you during your hospital stay. If you were given an oral nutrition supplement while in the hospital, continue to take this supplement at home. You can take it with meals, in-between meals, and/or before bedtime. These supplements can be purchased at most local grocery stores, pharmacies, and chain [employer]stores. If you have any questions about your diet or nutrition, call the hospital and ask for the dietitian. Follow a bland diet and advance as tolerated The following attachments cannot be sent through Care Everywhere.amiodarone (oral) (Scottish)documented in this encounter [facility] 05-17-2023 Evaluation note Includes: Assessments for all patient encounters Findings [Z68.25 - Body mass index [B TX] 25.0-25.9, adult] assessment of body mass index Open Access New Patient with Eden Yañez PRIMARY HEALTH CARE NURSE 05/17/2023 Last Documented On 4 9:42AM ; [facility] Chest pain Open Access New Patient with Addi Yañez PRIMARY HEALTH CARE NURSE 05/17/2023 Last Documented On 4 9:42AM ; [facility] Diabetes Risk Test Score was six score 05/17/2023 Open Access New Patient with Eden Yañez PRIMARY HEALTH CARE NURSE 05/17/2023 Last Documented On 4 9:42AM ; [facility] Screening for diabetes mellitus Open Acc ess New Patient with Eden Yañez PRIMARY HEALTH CARE NURSE 05/17/2023 Last Documented On 4 9:42AM ; [facility] Screening for HIV Open Access New Patient with A shantanu Yañez PRIMARY HEALTH CARE NURSE 05/17/2023 Last Documented On 4 9:42AM ; [facility] Visit for: screening for dig estive system disorders Open Access New Patient with Eden Yañez PRIMARY HEALTH CARE NURSE 05/17/2023 Last Documented On 4 9:42AM ; [facility] Work Phone: 1(752) 310-670503-19-2024 History general Narrative - Reported Includes: Medical History in patient's chart Description Last Updated History of cardiac catheterization coron carole angiography was performed 05/17/2023 Last Documented On 4 9:42AM ; [facility] History of stenosis of coronary artery s tent 05/17/2023 Last Documented On 4 9:42AM ; [facility] History of renal disorder 05/17/2023 Last Documented On 4 9:42AM ; [facility] History of systemic hypertension 024 Last Documented On 4 9:42AM ; [facility] Work Phone: 1(889) 952-303003-19-2024 Progress note* Progress note Date Encounter Last Documented by 05/17/2023 Open Access New Patient Last doc umented on 05/18/2023; 9:42 AM, Eden Yañez CNP; [facility] Chief Complaint The Chief Complaint is: Patient came over from dental and is having chest pains radiating to her back. Reason For Visit Visit for: chest pain. Referred Here No prior encounters. History of Present Illness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 on File Type Date Recorded 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 Advance Directive(s) 07/20/2018 10:43 AM Documents on File Type Date Recorded 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 Advance Directive(s) 07/20/2018 10:43 AM Latest Code Status on File Code Status Date Activated Date Inactivated Comments Full Code 05/17/2023 8:05 PM Code Status History Code Status Date Activated Date Inactivated Comments Full Code 08/19/2015 2:04 AM 08/23/2015 3:05 PM Reason for Referral Specialty Diagnoses / Procedures Referred By Contac t Referred To Contact Diagnoses Tension-type headache, not intractable, unspecified chronicity pattern Tinnitus, unspecified laterality Procedures CONSULT TO HEADACHE CLINIC OFFICE/OUTPATIENT [facility] 60-[place] [address] [place] [address] Referral ID Status Reason Start Date Expiration Date Visits Requested Visits Authorized [id number] Pending Review PCP Requested Referral 10/12/2021 10/12/2022 1 1 Specialty Diagnoses / Procedures Referred By Contac t Referred To Contact Ent - Otolaryngology Diagnoses Tension-type headache, not intractable, unspecified chronicity pattern Tinnitus, unspecified laterality Procedures CONSULT TO ENT OFFICE/OUTPATIENT [facility] 60-[place] [address] [place] [address] Referral ID Status Reason Start Date Expiration Date Visits Requested Visits Authorized [id number] Pending Review PCP Requested Referral 10/12/2021 10/12/2022 1 1 Specialty Diagnoses / Procedures Referred By Contac t Referred To Contact CT IMAGING Diagnoses Pulsatile tinnitus, left ear Lightheadedness Procedures CT TEMP BONES WO IVCON CT ORBIT SELLA/POST FOSSA/EAR W/O CONTRAST Macrina Cobian PA-C [address] [place] [address] Ct Imaging Referral ID Status Reason Start Date Expiration Date Visits Requested Visits Authorized [id number] Authorized Auto-Generat ed Referral 11/11/2021 12/11/2022 1 1 Physical Exam Physical Exam not supported for this document type No Physical Exam Recorded Additional Source Comments INFORMATION SOURCE (unrecogn ized section and content) DATE CREATED AUTHOR 08/24/2017 [facility] DATE CREATED AUTHOR AUTHOR'S ORGANIZ ATION 01/16/2022 [facility] DATE CREATED AUTHOR AUTHOR'S ORGANIZ ATION 02/26/2022 [facility] DATE CREATED AUTHOR AUTHOR'S ORGANIZ ATION 03/14/2023 [facility] DATE CREATED AUTHOR AUTHOR'S ORGANIZ ATION 04/02/[address] [facility] DATE CREATED AUTHOR AUTHOR'S ORGANIZ ATION 05/17/2023 [facility] DATE CREATED AUTHOR AUTHOR'S ORGANIZ ATION 05/19/2023 [facility] Source Comments (unrecognize d section and content) In the event this informatio n is protected by the Federal Confidentiality of Alcohol and Drug Abuse Patient Records regulations: The Federal rules restrict any use of the information to criminally investigate or prosecute any alcohol or drug abuse patient.[facility] the event this information is protected by the Federal Confidentiality of Alcohol and Drug Abuse Patient Records regulations: The Federal rules restrict any use of the information to criminally investigate or prosecute any alcohol or drug abuse patient.[facility] the event this information is protected by the Federal Confidentiality of Alcohol and Drug Abuse Patient Records regulations: The Federal rules restrict any use of the information to criminally investigate or prosecute any alcohol or drug abuse patient.[facility] the event this information is protected by the Federal Confidentiality of Alcohol and Drug Abuse Patient Records regulations: The Federal rules restrict any use of the information to criminally investigate or prosecute any alcohol or drug abuse patient.[facility] the event this information is protected by the Federal Confidentiality of Alcohol and Drug Abuse Patient Records regulations: The Federal rules restrict any use of the information to criminally investigate or prosecute any alcohol or drug abuse patient.[facility] the event this information is protected by the Federal Confidentiality of Alcohol and Drug Abuse Patient Records regulations: The Federal rules restrict any use of the information to criminally investigate or prosecute any alcohol or drug abuse patient.[facility] Center[facility] the event this information is protected by the Federal Confidentiality of Alcohol and Drug Abuse Patient Records regulations: The Federal rules restrict any use of the information to criminally investigate or prosecute any alcohol or drug abuse patient.[facility] the event this information is protected by the Federal Confidentiality of Alcohol and Drug Abuse Patient Records regulations: The Federal rules restrict any use of the information to criminally investigate or prosecute any alcohol or drug abuse patient.[facility] the event this information is protected by the Federal Confidentiality of Alcohol and Drug Abuse Patient Records regulations: The Federal rules restrict any use of the information to criminally investigate or prosecute any alcohol or drug abuse patient.[facility] Center[facility] the event this information is protected by the Federal Confidentiality of Alcohol and Drug Abuse Patient Records regulations: The Federal rules restrict any use of the information to criminally investigate or prosecute any alcohol or drug abuse patient.[facility] Center[facility] the event this information is protected by the Federal Confidentiality of Alcohol and Drug Abuse Patient Records regulations: The Federal rules restrict any use of the information to criminally investigate or prosecute any alcohol or drug abuse patient.[facility] Center[facility] the event this information is protected by the Federal Confidentiality of Alcohol and Drug Abuse Patient Records regulations: The Federal rules restrict any use of the information to criminally investigate or prosecute any alcohol or drug abuse patient.[facility] Center[facility] the event this information is protected by the Federal Confidentiality of Alcohol and Drug Abuse Patient Records regulations: The Federal rules restrict any use of the information to criminally investigate or prosecute any alcohol or drug abuse patient.[facility] Center[facility] the event this information is protected by the Federal Confidentiality of Alcohol and Drug Abuse Patient Records regulations: The Federal rules restrict any use of the information to criminally investigate or prosecute any alcohol or drug abuse patient.[facility] CenterIn the event this information is protected by the Federal Confidentiality of Alcohol and Drug Abuse Patient Records regulations: The Federal rules restrict any use of the information to criminally investigate or prosecute any alcohol or drug abuse patient.[facility] CenterIn the event this information is protected by the Federal Confidentiality of Alcohol and Drug Abuse Patient Records regulations: The Federal rules restrict any use of the information to criminally investigate or prosecute any alcohol or drug abuse patient.[facility] Center[facility] the event this information is protected by the Federal Confidentiality of Alcohol and Drug Abuse Patient Records regulations: The Federal rules restrict any use of the information to criminally investigate or prosecute any alcohol or drug abuse patient.[facility] CenterIn the event this information is protected by the Federal Confidentiality of Alcohol and Drug Abuse Patient Records regulations: The Federal rules restrict any use of the information to criminally investigate or prosecute any alcohol or drug abuse patient.[facility] CenterIn the event this information is protected by the Federal Confidentiality of Alcohol and Drug Abuse Patient Records regulations: The Federal rules restrict any use of the information to criminally investigate or prosecute any alcohol or drug abuse patient.[facility] CenterIn the event this information is protected by the Federal Confidentiality of Alcohol and Drug Abuse Patient Records regulations: The Federal rules restrict any use of the information to criminally investigate or prosecute any alcohol or drug abuse patient.[facility] CenterIn the event this information is protected by the Federal Confidentiality of Alcohol and Drug Abuse Patient Records regulations: The Federal rules restrict any use of the information to criminally investigate or prosecute any alcohol or drug abuse patient.[facility] CenterIn the event this information is protected by the Federal Confidentiality of Alcohol and Drug Abuse Patient Records regulations: The Federal rules restrict any use of the information to criminally investigate or prosecute any alcohol or drug abuse patient.[facility] CenterIn the event this information is protected by the Federal Confidentiality of Alcohol and Drug Abuse Patient Records regulations: The Federal rules restrict any use of the information to criminally investigate or prosecute any alcohol or drug abuse patient.[facility] CenterIn the event this information is protected by the Federal Confidentiality of Alcohol and Drug Abuse Patient Records regulations: The Federal rules restrict any use of the information to criminally investigate or prosecute any alcohol or drug abuse patient.[facility] CenterIn the event this information is protected by the Federal Confidentiality of Alcohol and Drug Abuse Patient Records regulations: The Federal rules restrict any use of the information to criminally investigate or prosecute any alcohol or drug abuse patient.[facility] CenterIn the event this information is protected by the Federal Confidentiality of Alcohol and Drug Abuse Patient Records regulations: The Federal rules restrict any use of the information to criminally investigate or prosecute any alcohol or drug abuse patient.[facility] Reason for Visit (unrecogniz ed section and content) Reason Comments Appointment Reason Comments CARD Follow Up 6 Month Reason Comments Refill Request Reason Comments Recheck Monica Herring is a 71 year old female who presents for a 6 month follow up visit. Her only complaint is continued throbbing in her left ear. She was seen by ENT in 2020, and was suggested she has issues due to carotid stenosis. She states the throbbing causes her to have headaches. She has to take Tylenol everyday. She states the Tylenol does not help. Reason Comments New Patient Left ear pulsating p atient states Per MRI in [place] 2020 was told was sinus related., but does not believe it is. Feels they have been getting the run around. Specialty Diagnoses / Procedures Referred By Manuel preston Referred To Contact Ent - Otolaryngology Diagnoses Tension-type headache, not intractable, unspecified chronicity pattern Tinnitus, unspecified laterality Procedures CONSULT TO ENT OFFICE/OUTPATIENT NEW HIGH MDM 60-[place] [address] [place] [address] Referral ID Status Reason Start Date Expiration Date Visits Requested Visits Authorized [id number] Pending Review PCP Requested Referral 10/12/2021 10/12/2022 1 1 Reason Comments Follow Up Virtual Reason Comments Follow Up Reason Onset Date Comments Population Health Navigation Outreach 12/17/2021 Spouse of [facility] outreach pt Reason Comments F/U 6 Month Reason Onset Date Comments Refill Request 05/26/2022 Reason Comments Follow Up Reason Comments CPE (Medicare) Reason Comments Established Patient Follow Up Reason Onset Date Comments Population Health Navigation Outreach 03/31/2023 Robert [facility] Outreach Reason Comments Chest Pain Sharp stabbing right sided chest pains starting 0300. Took 2 325mg asa when pain started. 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 Given 3 baby asa in office at 1122 and was given one nitro at 1129 with some improvement. Denies any n/v, slightly sob. Specialty Diagnoses / Procedures Referred By Contac t Referred To Contact Diagnoses Right sided abdominal pain Luis Estrella MD [address] [facility], [place] [address] [facility] [address] [place] [address] Referral ID Status Reason Start Date Expiration Date Visits Re quested Visits Authorized [id number] 1 1 Care Teams (unrecognized sec tion and content) Calciner Operator Helper Relationship Specialty [place] [address] [place] [address] PCP - General Internal Medicine 01/30/19 Janey Patricia DO [address] [place] [address] Primary Staff Physician Nephrology 03/26/21 Calciner Operator Helper Relationship Specialty Start [place] [address] [place] [address] PCP - General Internal Medicine 01/30/19 Janey Patricia DO [address] [place] [address] Primary Staff Physician Nephrology 03/26/21 Calciner Operator Helper Relationship Specialty Start [place] [address] [place] [address] PCP - General Internal Medicine 01/30/19 Janey Patricia, [address] [place] [address] Primary Staff Physician Nephrology 03/26/21 Calciner Operator Helper Relationship Specialty Start [place] [address] [place] [address] PCP - General Internal Medicine 01/30/19 Janey Patricia, DO [address] [place] [address] Primary Staff Physician Nephrology 03/26/21 Calciner Operator Helper Relationship Specialty Start [place] [address] [place] [address] PCP - General Internal Medicine 01/30/19 Janey Patricia, DO [address] [place] [address] Primary Staff Physician Nephrology 03/26/21 Calciner Operator Helper Relationship Specialty Start [place] [address] [place] [address] PCP - General Internal Medicine 01/30/19 Janey Patricia, [address] [place] [address] Primary Staff Physician Nephrology 03/26/21 Calciner Operator Helper Relationship Specialty Start [place] [address] [place] [address] PCP - General Internal Medicine 01/30/19 Janey Patricia, [address] [place] [address] Primary Staff Physician Nephrology 03/26/21 Calciner Operator Helper Relationship Specialty Start Date End Date Kayla Monterroso [place] [id number] [place] [address] PCP - General Internal Medicine 01/30/19 Janey Patricia DO [address] [place] [address] Primary Staff Physician Nephrology 03/26/21 Calciner Operator Helper Relationship Specialty Start Date End Date Kayla Monterroso MD [address] [place] [id number] PCP - General Internal Medicine 01/30/19 Janey Patricia DO [address] [place] [address] Primary Staff Physician Nephrology 03/26/21 Calciner Operator Helper Relationship Specialty Start Date End Date Kayla Monterroso MD [address] [place] [id number] PCP - General Internal Medicine 01/30/19 Janey Patricia DO [address] [place] [address] Primary Staff Physician Nephrology 03/26/21 Calciner Operator Helper Relationship Specialty Start Date End Date Kayla Monterroso MD [address] [place] [id number] PCP - General Internal Medicine 01/30/19 Janey Patricia DO [address] [place] [address] Primary Staff Physician Nephrology 03/26/21 Calciner Operator Helper Relationship Specialty Start Date End Date Kayla Monterroso MD [address] [place] [id number] PCP - General Internal Medicine 01/30/19 Janey Patricia DO [address] [place] [address] Primary Staff Physician Nephrology 03/26/21 Calciner Operator Helper Relationship Specialty [place] [address] [place] [address] PCP - General Internal Medicine 01/30/19 Janey Patricia DO [address] [place] [address] Primary Staff Physician Nephrology 03/26/21 Calciner Operator Helper Relationship Specialty [place] [address] [place] [address] PCP - General Internal Medicine 01/30/19 Janey Patricia DO [address] [place] [address] Primary Staff Physician Nephrology 03/26/21 Calciner Operator Helper Relationship Specialty [place] [address] [place] [address] PCP - General Internal Medicine 01/30/19 Janey Patricia DO [address] [place] [address] Primary Staff Physician Nephrology 03/26/21 Calciner Operator Helper Relationship Specialty [place] [address] [place] [address] PCP - General Internal Medicine 01/30/19 Janey Patricia DO [address] [place] [address] Primary Staff Physician Nephrology 03/26/21 Calciner Operator Helper Relationship Specialty [place] [address] [place] [address] PCP - General Internal Medicine 01/30/19 Janey Patricia DO [address] [place] [address] Primary Staff Physician Nephrology 03/26/21 Calciner Operator Helper Relationship Specialty [place] [address] [place] [address] PCP - General Internal Medicine 01/30/19 aJney Patricia DO [address] [place] [address] Primary Staff Physician Nephrology 03/26/21 Calciner Operator Helper Relationship Specialty [place] [address] [place] [address] PCP - General Internal Medicine 01/30/19 Janey Patricia DO [address] [place] [address] Primary Staff Physician Nephrology 03/26/21 Calciner Operator Helper Relationship Specialty Start [place] [address] [place] [address] PCP - General Internal Medicine 01/30/19 Janey Patricia DO [address] [place] [address] Primary Staff Physician Nephrology 03/26/21 Calciner Operator Helper Relationship Specialty [place] [address] [place] [address] PCP - General Internal Medicine 01/30/19 Jnaey Patricia DO [address] [place] [address] Primary Staff Physician Nephrology 03/26/21 Calciner Operator Helper Relationship Specialty [place] [address] [place] [address] PCP - General Internal Medicine 05/18/23 Ordered Prescriptions (unrec ognized section and content) Prescription Sig Dispensed Refills Start Date End Da te pantoprazole (PROTONIX) 40 MG tablet Take 1 tablet by mouth every morning (before breakfast) 90 tablet 1 05/19/2023 amiodarone (CORDARONE) 200 MG tablet Take 1 tablet by mouth daily 30 tablet 1 05/20/2023 naproxen (NAPROSYN) 250 MG tablet Take 1 tablet by mouth 2 times daily (with meals) for 19 doses 19 tablet 0 05/19/2023 05/29/2023 Scheduled Active and Recently Administ ered Medications (unrecognized section and content) Medication Order 05/17/2023 05/18/2023 05/19/2023 amiodarone (CORDARONE) tablet 200 mg 200 mg, Oral, DAILY, First dose on Tue05/19/23 at 0900, Until Discontinued 0819 (Given - Provider: Denisse Thompson RN) carvedilol (COREG) tablet 12.5 mg 12.5 mg, Oral, 2 TIMES DAILY, First dose on Tue05/17/23 at 2100, Until Discontinued, Administer with food to minimize the risk of orthostatic hypotension 1349 (Given - Provider: Alissa Resendiz RN) 132 (Given - Provider: Yesy Ruano RN)2112 (Given - Provider: Surekha Brown RN) 08 (Given - Provider: Denisse Thompson, RN)2099 (Due) doxazosin (CARDURA) tablet 2 mg 2 mg, Oral, NIGHTLY, First dose on Tue05/17/23 at 2100, Until Discontinued 2157 (Given - Provider: Alissa Resendiz RN) 2112 (Given - Provider: Surekha Brown RN) 2099 (Due) enoxaparin (LOVENOX) injection 40 mg 40 mg, SubCUTAneous, DAILY, First dose on Tue05/17/23 at 2030, Until Discontinued, Indication of Use: Prophylaxis-DVT/PE 2158 (Given - Provider: Alissa Resendiz RN) 1326 (Given - Provider: Yesy Ruano RN) 08 (Not Given - Provider: Denisse Thompson RN - Reason: Patient/family refused) fentaNYL (SUBLIMAZE) injection 25 mcg (COMPLETED) 25 mcg, IntraVENous, ONCE, 1 dose, On Tue05/17/23 at 1300, If oral and IV narcotics ordered, use oral first and only use IV if oral is ineffective or cannot take oral. Do Not give oral and IV within 1 hour of each other unless specifically ordered. 1300 (Given - Provider: Ashli Rodrigues RN) fentaNYL (SUBLIMAZE) injection 25 mcg (COMPLETED) 25 mcg, IntraVENous, ONCE, 1 dose, On Tue05/17/23 at 1345, If oral and IV narcotics ordered, use oral first and only use IV if oral is ineffective or cannot take oral. Do Not give oral and IV within 1 hour of each other unless specifically ordered. 1358 (Given - Provider: Ashli Rodrigues RN) hydrALAZINE (APRESOLINE) tablet 50 mg 50 mg, Oral, 3 TIMES DAILY, First dose on Tue05/17/23 at 1930, Until Discontinued 1923 (Given - Provider: Ashli Rodrigues RN) 132 (Given - Provider: Yesy Ruano RN)1340 (Not Given - Provider: Yesy Ruano RN - Reason: Other - Comment: just gave morning dose)2112 (Given - Provider: Surekha Brown RN) 818 (Given - Provider: Denisse Thompson RN)1400 (Due)2100 (Due) HYDROmorphone HCl PF (DILAUDID) injection 1 mg (COMPLETED) 1 mg, IntraVENous, ONCE, 1 dose, On Tue05/17/23 at 1615 1607 (Given - Provider: Ashli Rodrigues, RAY) metoprolol (LOPRESSOR) injection 5 mg (COMPLETED) 5 mg, IntraVENous, ONCE, 1 dose, On Tue05/18/23 at 1700 1709 (Given - Provider: Amada Laboy RN) morphine injection 4 mg (COMPLETED) 4 mg, IntraVENous, ONCE, 1 dose, On Tue05/17/23 at 1445 1450 (Given - Provider: Ashli Rodrigues, RAY) naproxen (NAPROSYN) tablet 250 mg 250 mg, Oral, 2 TIMES DAILY WITH MEALS, 20 doses, First dose on [place] 05/19/23 at 0800, Last dose on Tue05/28/23 at 1700 0819 (Given - Provider: Denisse Thompson, RAY)1700 (Due) pantoprazole (PROTONIX) 40 mg in sodium chloride 0.9 % 50 mL bolus (CANCELED) 40 mg, IntraVENous, at 100 mL/hr, Administer over 30 Minutes, DAILY, First dose on Tue05/17/23 at 2030 2214 (New Bag - Provider: Alissa Resendiz RN)2244 (Stopped - Provider: Alissa Resendiz RN) pantoprazole (PROTONIX) injection 40 mg 40 mg, IntraVENous, DAILY, First dose on Tue05/18/23 at 0900, Until Discontinued, Reconstitute each 40 mg vial with 10 mL of 0.9% sodium chloride and administer each 40 mg vial over at least 2 minutes. 1328 (Given - Provider: Yesy Ruano, RAY) 0818 (Given - Provider: Denisse Thompson, RAY) rosuvastatin (CRESTOR) tablet 20 mg 20 mg, Oral, DAILY, First dose on Tue05/17/23 at 2030, Until Discontinued 2027 (Not Given - Provider: Alissa Resendiz RN - Reason: Patient took at home) 1329 (Given - Provider: Yesy Ruano, RAY) 0822 (Not Given - Provider: Denisse Thompson, RAY - Reason: Patient/family refused) sodium chloride 0.9 % bolus 500 mL (COMPLETED) 500 mL (8.29 mL/kg), IntraVENous, at 500 mL/hr, Administer over 1 Hours, ONCE, On Tue05/17/23 at 1230, For 1 dose 1251 (New Bag - Provider: Ashli Rodrigues, RAY)1355 (Stopped - Provider: Ashli Rodrigues RN) sodium chloride flush 0.9 % injection 5-40 mL 5-40 mL, IntraVENous, EVERY 12 HOURS SCHEDULED (2 times per day), First dose on Tue05/17/23 at 2100, Until Discontinued, For Line Patency: Peripheral IV = 5 mL; Midline or Central Line = 10 mL/lumen. If following IV push medication, administer flush at same rate as the IV push. Flush volume is determined by type of infusion therapy being given. For non-viscous solutions use: Peripheral IV = 5 mL Midline or Central Line = 10 mL/lumen For viscous solutions (i.e. blood components, parenteral nutrition, contrast media, or after obtaining blood sample) use: Peripheral IV = 10 mL Midline or Central Line = 20 mL/lumen 2201 (Given - Provider: Alissa Reesndiz RN) 1339 (Given - Provider: Yesy Ruano RN)2113 (Not Given - Provider: Surekha Brown RN - Reason: IV Fluid Infusing) 0820 (Given - Provider: Denisse Thompson, RAY)2100 (Due) Continuous Medication Order 05/17/2023 05/18/2023 05/19/2023 amiodarone (CORDARONE) 450 mg in dextrose 5% 250 mL infusion ()(Linked Group 1) 1 mg/min (33.3333 mL/hr, rounded to 33.3 mL/hr), IntraVENous, CONTINUOUS, Starting on Tue05/18/23 at 1830, Until Tue05/18/23 at 2014, 33.3 ml/hr (1mg/min) x 6hrs. Use in-line filter. 185 (New Bag - Provider: Surekha Brown RN)2014 (Stopped - Provider: Denisse Thompson, RAY - Comment: stopped by other) amiodarone (CORDARONE) 450 mg in dextrose 5% 250 mL infusion (CANCELED)(Linked Group 1) 0.5 mg/min (16.6667 mL/hr, rounded to 16.7 mL/hr), IntraVENous, CONTINUOUS, Starting on Tue05/18/23 at 2030, Until [place] 05/19/23 at 0422, 16.7 ml/hr (0.5mg/min) Use in-line filter. 2012 (Rate/Dose Change - Provider: Surekha Brown RN) 042 (Stopped - Provider: Denisse Thompson RN - Comment: stopped by other) PRN Medication Order 05/17/2023 05/18/2023 05/19/2023 0.9 % sodium chloride infusion IntraVENous, at 5-250 mL/hr, PRN, if patient receiving piggyback infusions and maintenance fluids are not ordered OR KVO fluids to protect IV site / prevent frequent line interruptions/ long duration, Starting on Tue05/17/23 at 2003, For piggyback infusion, administer at same rate as piggyback for a total of 25 mL. Enter 25 mL into dose field and piggyback rate into rate field of order. If piggyback is infusing at a rate less than 100 mL/hr, enter 25 mL into dose field and 100 mL/hr into rate field of order. For KVO fluids, enter rate of 20 mL/hr or less into rate field of order. 185 (New Bag - Provider: Surekha Brown RN) acetaminophen (TYLENOL) suppository 650 mg(Linked Group 2) 650 mg, Rectal, EVERY 6 HOURS PRN, Starting on Tue05/17/23 at 2003, Until Discontinued, Pain Mild (1-3), Fever, For temp greater than 100.4 F (38 C), Administer if oral route cannot be used. 6 (See Alternative - Provider: Surekha Brown RN) acetaminophen (TYLENOL) tablet 650 mg(Linked Group 2) 650 mg, Oral, EVERY 6 HOURS PRN, Starting on Tue05/17/23 at 2003, Until Discontinued, Pain Mild (1-3), Fever, For temp greater than 100.4 F (38 C), Maximum dose of acetaminophen is 4000 mg from all sources in 24 hours. 2346 (Given - Provider: Surekha Brown RN - Comment: pt request tylenol for ZHOU) gadoteridol (PROHANCE) injection 12 mL (COMPLETED) 12 mL, IntraVENous, IMG ONCE PRN, 1 dose, Starting on Tue05/18/23 at 1305, Until Tue05/18/23 at 1305, Other 1305 (Given - Provider: Jenifer Chung) HYDROmorphone HCl PF (DILAUDID) injection 1 mg 1 mg, IntraVENous, EVERY 6 HOURS PRN, Starting on Tue05/17/23 at 2003, Until Discontinued, Pain Severe (7-10), Allowed for higher pain score per patient request, If oral and IV narcotics ordered, use oral first and only use IV if oral is ineffective or cannot take oral. Do Not give oral and IV within 1 hour of each other unless specifically ordered. 2230 (Given - Provider: Alissa Resendiz, RN) 0542 (Given - Provider: Alissa Resendiz, RN)1335 (Given - Provider: Yesy Ruano RN) iopamidol (ISOVUE-370) 76 % injection 75 mL (COMPLETED) 75 mL, IntraVENous, IMG ONCE PRN, 1 dose, Starting on Tue05/17/23 at 1229, Until Tue05/17/23 at 1232, Other 1232 (Given - Provider: Tanja Campos) magnesium sulfate 2000 mg in 50 mL IVPB premix 2,000 mg, IntraVENous, at 25 mL/hr, Administer over 2 Hours, PRN, Other, Magnesium Replacement, Starting on Tue05/17/23 at 2003, Mag Lab Replacement Action 1.4-1.6 mg/dL 2,000 mg Total Dose Given as 1,000 mg IVPB x 2 doses or 2,000 mg IVPB x 1 dose 1.0-1.3 mg/dL 4,000 mg Total Dose Given as 1,000 mg IVPB x 4 doses or 2,000 mg IVPB x 2 doses Less than 1.0 mg/dL CALL PHYSICIAN and give 4,000 mg Total Dose Given as 1,000 mg IVPB x 4 doses or 2,000 mg IVPB x 2 doses Infuse at 1,000 mg/hr Repeat Mag level 1 hour after final administration Protocol not for use in Patients with CrCl less than 30ml/min ondansetron (ZOFRAN) injection 4 mg(Linked Group 3) 4 mg, IntraVENous, EVERY 6 HOURS PRN, Starting on Tue05/17/23 at 2003, Until Discontinued, Nausea, Vomiting, Administer if oral route cannot be used. ondansetron (ZOFRAN-ODT) disintegrating tablet 4 mg(Linked Group 3) 4 mg, Oral, EVERY 8 HOURS PRN, Starting on Tue05/17/23 at 2003, Until Discontinued, Nausea, Vomiting oxyCODONE (ROXICODONE) immediate release tablet 5 mg (CANCELED) 5 mg, Oral, EVERY 6 HOURS PRN, Starting on Tue05/18/23 at 1544, Until [place] 05/19/23 at 0733, Pain Severe (7-10) 1906 (Given - Provider: Surekha Brown RN) polyethylene glycol (GLYCOLAX) packet 17 g 17 g, Oral, DAILY PRN, Starting on Tue05/17/23 at 2003, Until Discontinued, Constipation, First line therapy for constipation potassium bicarb-citric acid (EFFER-K) effervescent tablet 40 mEq(Linked Group 4) 40 mEq, Oral, PRN, Starting on Tue05/17/23 at 2003, Until Discontinued, Per Potassium Replacement Protocol, Administer as alternative if patient unable to tolerate oral tablet. K Lab Replacement Action 3.1 to 3.5 40 mEq ORAL x 1 Under 3.1 Refer to IV replacement protocol Recheck K level in AM. Protocol not for use in patients with CrCl less than 30 mL/min. Do not chew or crush. Dissolve flavored tablets completely in 3 to 4 ounces of cold water; unflavored tablets may be dissolved in 3 to 4 ounces of cold juice. Patient to sip slowly over a 5 to 10 minute period. May further dilute if GI adverse effects occur. potassium chloride (KLOR-CON M) extended release tablet 40 mEq(Linked Group 4) 40 mEq, Oral, PRN, Starting on Tue05/17/23 at 2003, Until Discontinued, Potassium Replacement, May give alternative linked oral order (ordered as effervescent, packet, or liquid solution) if patient unable to tolerate tablet. K Lab Replacement Action 3.1 to 3.5 40 mEq ORAL x 1 Under 3.1 Refer to IV replacement protocol Recheck K level in AM. Protocol not for use in patients with CrCl less than 30 mL/min. Do not crush, chew, or suck on tablet. Tablet may also be broken in half and each half swallowed separately. potassium chloride 10 mEq/100 mL IVPB (Peripheral Line)(Linked Group 4) 10 mEq, IntraVENous, PRN, Starting on Tue05/17/23 at 2004, Until Discontinued, at 100 mL/hr, Potassium Replacement, K Lab Replacement Action 2.7 to 3.0 10 mEq IVPB x 6 doses (60 mEq Total) Under 2.7 CALL PROVIDER and administer 10 mEq IVPB x 6 doses (60 mEq Total) Infuse at 10 mEq/hr. Repeat Potassium lab 1 hour after final administration. Protocol not for use in patients with CrCl less than 30 mL/min. sodium chloride flush 0.9 % injection 10 mL 10 mL, IntraVENous, PRN, Starting on Tue05/17/23 at 2003, Until Discontinued, Line Care, After every IV line use No Frequency Medication Order 05/17/2023 05/18/2023 05/19/2023 sterile water injection (COMPLETED) 1 dose, Starting on Tue05/18/23 at 1325, Until Tue05/18/23 at 1328, Yesy Ruano: cabinet override, Yesy Ruano: cabinet override 1328 (Given - Provider: Yesy Ruano, RN) sterile water injection (COMPLETED) 1 dose, Starting on Tue05/19/23 at 0810, Until Tue05/19/23 at 0819, DENISSE THOMPSON: cabinet override, DENISSE THOMPSON: cabinet override 0819 (Given - Provid er: Denisse Thompson RN) Linked Groups Order Group 1: amiodarone (CORDARONE) 450 mg in dextrose 5% 250 mL infusion ()Jump to med 1 mg/min (33.3333 mL/hr, rounded to 33.3 mL/hr), IntraVENous, CONTINUOUS, Starting on Tue05/18/23 at 1830, Until Tue05/18/23 at 2014
33.3 ml/hr (1mg/min) x 6hrs. Use in-line filter.
Followed by amiodarone (CORDARONE) 450 mg in dextrose 5% 250 mL infusion (CANCELED)Jump to med 0.5 mg/min (16.6667 mL/hr, rounded to 16.7 mL/hr), IntraVENous, CONTINUOUS, Starting on Tue05/18/23 at 2030, Until [place] 05/19/23 at 0422
16.7 ml/hr (0.5mg/min) Use in-line filter.
Group 2: acetaminophen (TYLENOL) tablet 650 mgJump to med 650 mg, Oral, EVERY 6 HOURS PRN, Starting on Tue05/17/23 at 2003, Until Discontinued, Pain Mild (1-3), Fever, For temp greater than 100.4 F (38 C)
Maximum dose of acetaminophen is 4000 mg from all sources in 24 hours.
Or acetaminophen (TYLENOL) suppository 650 mgJump to med 650 mg, Rectal, EVERY 6 HOURS PRN, Starting on Tue05/17/23 at 2003, Until Discontinued, Pain Mild (1-3), Fever, For temp greater than 100.4 F (38 C)
Administer if oral route cannot be used.
Group 3: ondansetron (ZOFRAN-ODT) disintegrating tablet 4 mgJump to med 4 mg, Oral, EVERY 8 HOURS PRN, Starting on Tue05/17/23 at 2003, Until Discontinued, Nausea, Vomiting Or ondansetron (ZOFRAN) injection 4 mgJump to med 4 mg, IntraVENous, EVERY 6 HOURS PRN, Starting on Tue05/17/23 at 2003, Until Discontinued, Nausea, Vomiting
Administer if oral route cannot be used.
Group 4: potassium chloride (KLOR-CON M) extended release tablet 40 mEqJump to med 40 mEq, Oral, PRN, Starting on Tue05/17/23 at 2003, Until Discontinued, Potassium Replacement
May give alternative linked oral order (ordered as effervescent, packet, or liquid solution) if patient unable to tolerate tablet. K Lab Repla cemen t Action 3.1 to 3.5 40 mEq ORAL x 1 Under 3.1 Refer to IV replacement protocol Recheck K level in AM. Protocol not for use in patients with CrCl less than 30 mL/min. Do not crush, chew, or suck on tablet. Tablet may also be broken in half and each half swallowed separately.
Or potassium bicarb-citric acid (EFFER-K) effervescent tablet 40 mEqJump to med 40 mEq, Oral, PRN, Starting on Tue05/17/23 at 2003, Until Discontinued, Per Potassium Replacement Protocol
Administer as alternative if patient unable to tolerate oral tablet. K Lab Repla cemen t Action 3.1 to 3.5 40 mEq ORAL x 1 Under 3.1 Refer to IV replacement protocol Recheck K level in AM. Protocol not for use in patients with CrCl less than 30 mL/min. Do not chew or crush. Dissolve flavored tablets completely in 3 to 4 ounces of cold water; unflavored tablets may be dissolved in 3 to 4 ounces of cold juice. Patient to sip slowly over a 5 to 10 minute period. May further dilute if GI adverse effects occur.
Or potassium chloride 10 mEq/100 mL IVPB (Peripheral Line)Jump to med 10 mEq, IntraVENous, PRN, Starting on Tue05/17/23 at 2003, Until Discontinued, at 100 mL/hr, Potassium Replacement
K Lab Replacement Action 2.7 to 3.0 10 mEq IVPB x 6 doses (60 mEq Total) Under 2.7 CALL PROVIDER and administer 10 mEq IVPB x 6 doses (60 mEq Total) Infuse at 10 mEq/hr. Repeat Potassium lab 1 hour after final administration. Protocol not for use in patients with CrCl less than 30 mL/min.
FOR RECORDS PERTAINING TO PATIENTS WHO ARE OR HAVE BEEN ENROLLED IN A CHEMICAL DEPENDENCY/SUBSTANCEABUSE PROGRAM, SOME INFORMATION MAY BE OMITTED. This clinical summary was aggregated from multiple sources. Caution should be exercised in using it in the provision of clinical care. This summary normalizes information from multiple sources, and as a consequence, information in this document may materially change the coding, format and clinical context of patient data. In addition, data may be omitted in some cases. CLINICAL DECISIONS SHOULD BE BASED ON THE PRIMARY CLINICAL RECORDS. [employer] [facility]. provides no warranty or guarantee of the accuracy or completeness of information in this document.
[2023-05-20 17:18] LABS: Troponin I High Sensitivity 9.1 pg/mL (4.0-51.3)
[2023-05-20] MEDS: ACETAMINOPHEN 500 MG TABLET 1000 MG PO (17:36)
[2023-05-20] MEDS: KETOROLAC TROMETHAMINE 30 MG/ML VIAL IVP (17:37)
[2023-05-20] MEDS: CARVEDILOL 12.5 MG TABLET PO (17:39)
[2023-05-20] MEDS: AMIODARONE HCL 200 MG TABLET PO (17:39)
--- NOTE | 2023-05-20 18:01 | ECG_ITS ---
[facility] Test Date: 2023-05-20 Pat Name: NEELAM VIRAMONTES Department: Room: 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
[2023-05-20] MEDS: 0.9 % SODIUM CHLORIDE 250 ML 1000 ML IV (18:59)
[2023-05-20 20:39] LABS: Troponin I High Sensitivity 7.5 pg/mL (4.0-51.3)
[2023-05-20] MEDS: ENOXAPARIN SODIUM 40 MG/0.4 ML SYRINGE SUBQ (21:10)
[2023-05-20] MEDS: ATORVASTATIN CALCIUM 40 MG TABLET PO (21:10)
[2023-05-20] MEDS: 0.9 % SODIUM CHLORIDE 1,000 ML 100 ML IV (21:10)
[2023-05-20] MEDS: 0.9 % SODIUM CHLORIDE 250 ML IV (21:10)
[2023-05-21] VITALS (61 sets, daily range): BP systolic 63–117; BP diastolic 31–69; PULSE 54–101; RESP 10–27; TEMP 36.6–36.7; O2SAT 94–100
[2023-05-21 04:24] LABS: Basophils Percent Auto 0.1 % (0.2-2.0); Eosinophils Absolute Auto 0.2 10^3/uL (0.0-0.7); Eosinophils Percent Auto 3.2 % (0.9-7.0); Hematocrit 28.9 % (36.0-48.0); Hemoglobin 8.9 g/dL (12.0-16.0); Immature Granulocytes Abs Auto 0.03 10^3/uL (0.00-0.03); Immature Granulocytes Pct Auto 0.4 % (0.0-0.5); Lymphocytes Absolute Auto 1.3 10^3/uL (1.2-3.8); Lymphocytes Percent Auto 16.9 % (20.5-60.0); Mean Corpuscular HGB Conc 30.8 g/dL (29.9-35.2); Mean Corpuscular Hemoglobin 30.9 pg (26.7-34.0); Mean Corpuscular Volume 100.3 fL (81.0-99.0); Mean Platelet Volume 10.4 fL (9.5-13.5); Monocytes Absolute Auto 0.8 10^3/uL (0.3-0.8); Neutrophils Absolute Auto 5.2 10^3/uL (1.4-6.5); Neutrophils Percent Auto 68.4 % (43.0-75.0); Platelet Count 124 10^3/uL (150-450); Red Blood Count 2.88 10^6/uL (4.20-5.40); Red Cell Distribution Width 13.9 % (11.0-15.0); White Blood Count 7.6 10^3/uL (4.0-11.0)
[2023-05-21 04:37] LABS: Anion Gap 12.6; BUN Creatinine Ratio 15.1; Calcium 7.6 mg/dL (8.5-10.1); Carbon Dioxide 22.5 mmol/L (21.0-32.0); Chloride 106 mmol/L (98-107); Estimated GFR (African America 28 (>=60); Estimated GFR (Non-African Ame 23 (>=60); Glucose 95 mg/dL (74-106); Potassium 4.1 mmol/L (3.5-5.1); Sodium 137 mmol/L (136-145)
[2023-05-21] MEDS: OMEPRAZOLE 40 MG CAPSULE.DR PO (06:27)
[2023-05-21] MEDS: 0.9 % SODIUM CHLORIDE 1,000 ML 100 ML IV (06:29)
--- NOTE | 2023-05-21 08:10 | PM.HP ---
HPI H&P: HPI History of Present Illness Chief complaint: CHEST PAIN paroxysmal atrial flutter Narrative: patient is a 73-year-old female with past medical history of paroxysmal atrial fibrillation. She was recently in [facility] for some abdominal pain and chest pain. We have not obtained any other information other than her Emergency Room visit, which showed a normal right upper quadrant ultrasound, and a negative CTA with exception of a patent stent in the right common iliac artery, no aneurysm or other acute processes in the chest or abdomen. Patient states that she had a cardiac workup including echocardiogram in the hospital approximately four days ago. She does see a signaling design engineer and plunket nurse at the [facility] in [place]. She sees them regularly. She denies being on any blood thinners as her atrial fibrillation has been off and on but never consistent. She takes amiodarone and Coreg as well as hydralazine for her high blood pressure and her heart rate control. She was having some chest pain when she came to the Emergency Room yesterday and she was found to be in atrial fibrillation with RVR she quickly converted on a dose of Cardizem. She is now in normal sinus rhythm with some hypotension. At the time of admission exam she denies any further chest pain. Troponins ?5 have all been normal slight elevation of proBNP but has been improving this morning. I have reached out to [facility] in order to get echocardiogram results. She denies any recent stress test or cardiac catheterizations. Her lipids are within normal limits, her thyroid is within normal limits. Discussed options and if echocardiogram was read as normal, and since no longer symptomatic we'll discuss possible discharge today on our request until further evaluation by her [facility] cardiology team. is also present at the time of admission exam. He agrees with the plan of care. Opioid HPI Opioid Management Most Recent Opioid Data: Last Pain Assessment 05/21/23 15:00 Last MAR Pain Assessment 05/20/23 18:37 Last ORT Total Score 0 05/20/23 20:15 Last ORT Risk Category Low Risk 05/20/23 20:15 Review of Systems ROS Narrative ROS: a complete review of systems were reviewed with patient and are positive as below or listed in History of Chief Complaint. General: no fever, chills, night sweats Head: no headache, trauma, visual changes, nausea or vomiting Skin: no reported rashes, itching or sores Eyes: no blurriness of vision Ears: no reported hearing loss, vertigo, earache, or tinnitus Throat: no sore throat, hoarseness, swelling of neck, or tongue pain Heart: chest pain Lungs: no shortness of breath or cough GI: no diarrhea or vomiting/nausea Urinary: no urinary urgency, frequency or pain Neuro: no numbness or tingling HEM: no bleeding issues or bruising ENDO: no thyroid problems Psych: no anxiety or depression PFSH PFSH Medical History (Updated 05/21/23 @ 15:02 by Padmini Harrison DO) 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 - Unspecified atherosclerosis of [place] arteries of extremities, unspecified extremity (ICD-10) History of heart attack ?I25.2 - Old myocardial infarction (ICD-10) Abnormal colonoscopy ?R93.3 - Abnormal findings on diagnostic imaging of other parts of digestive tract (ICD-10) Colon polyp ?K63.5 - Polyp of colon (ICD-10) Surgical History H/O tubal ligation ?Z98.51 - Tubal ligation status (ICD-10) Hx of tonsillectomy ?Z90.89 - Acquired absence of other organs (ICD-10) Social History Within the past year, how often did you have a drink containing alcohol: never Score interpretation: A score less than 3 is consistent with normal alcohol consumption. Smoking status: Former smoker Non-prescribed substance use: denies use Previous occupational history: retired Highest level of school completed/degree received: 11th grade Meds Home Medications and Allergies Home Medications ?Medication ?Instructions ?Recorded ?Confirmed ?Type carvedilol 12.5 mg tablet 12.5 mg PO Q12H 04/26/23 05/20/23 History doxazosin 2 mg tablet 2 mg PO BID 04/26/23 05/20/23 History hydralazine 50 mg tablet 50 mg PO Q8H 04/26/23 05/20/23 History rosuvastatin 20 mg tablet 20 mg PO .QHS 04/26/23 05/20/23 History amiodarone 200 mg tablet 200 mg PO DAILY 05/20/23 05/20/23 History pantoprazole 40 mg tablet,delayed 40 mg PO DAILY 05/20/23 05/20/23 History release Allergies Allergy/AdvReac Type Severity Reaction Status Date / Time No Known Drug Allergies Allergy Verified 04/26/23 00:08 Exam Narrative Exam Narrative: General: Patient is alert, and oriented to person, place and time with normal affect, proper hygiene Skin: no visible rashes, or ulcers Head: atraumatic, acephalic Eyes: PERRLA, no nystagmus present, conjunctiva clear, no scleral icterus Ears: normal gross auditory acuity Nose: symmetric, no discharge, no maxillary or frontal sinus tenderness Mouth/Throat: no erythema, exudate, or tonsillar enlargement, normal dentition Heart: Normal rate and rhythm, no murmurs/rubs/gallops Lungs: no audible wheezes, crackles and normal breath sounds all lung shaw Abdomen: Normal audible bowel sounds, no distension, No palpable masses, no organomegaly, no rebound/guarding/ or rigidity Musculoskeletal: no swelling bilateral lower extremities Neuro: CN II-X grossly intact Constitutional Vital Signs, click to edit/add: Last Vital Signs Temp 98.0 F 05/21/23 04:00 Pulse 57 L 05/21/23 06:00 Resp 18 05/21/23 06:00 BP 91/52 05/21/23 06:00 Pulse Ox 97 05/21/23 06:00 O2 Del Method Room Air 05/21/23 06:00 Results Labs Labs: Short CBC 05/20/23 05/21/23 Range/Units 14:17 04:03 WBC 11.1 H 7.6 (4.0-11.0) 10^3/uL Hgb 11.2 L 8.9 L (12.0-16.0) g/dL Hct 35.8 L 28.9 L (36.0-48.0) % Plt Count 158 124 L (150-450) 10^3/uL BMP 05/20/23 05/21/23 14:17 04:03 Sodium 137 137 Potassium 3.9 4.1 Chloride 105 106 Carbon Dioxide 22.7 22.5 BUN 28.0 H 32.0 H Creatinine 1.42 H 2.12 H Glucose 110 H 95 Calcium 8.2 L 7.6 L Assessment and Plan Assessment and Plan (1) Atrial flutter, paroxysmal: Assessment and Plan: normal thyroid function, normal electrolytes, atrial fibrillation resolved after dose of IV Cardizem. Will continue on amiodarone, Coreg. Will get echocardiogram results from [facility]. We'll place on Eliquis 5 mg twice a day. (2) Atypical chest pain: Assessment and Plan: has resolved, troponins ?5 had been negative, proBNP slight elevation but improved this morning. Normal lipids,, normal thyroid function chest pain has resolved. (3) Hypertension: Assessment and Plan: continue home medications with exception of decreasing Coreg as patient was actually hypotensive. Qualifiers: Hypertension type: primary hypertension Qualified Code(s): I10 - Essential (primary) hypertension (4) GERD (gastroesophageal reflux disease): Assessment and Plan: continue pantoprazole Qualifiers: Esophagitis presence: esophagitis presence not specified Qualified Code(s): K21.9 - Gastro-esophageal reflux disease without esophagitis (5) CAD (coronary artery disease), [place] coronary artery: Assessment and Plan: status post stent ?1, continue rosuvastatin Plan patient is a full code Patient is an observation status and is not expected to cross two midnights Will start Eliquis
[2023-05-21 08:18] LABS: Estimated Average Glucose 85 mg/dL; Glycohemoglobin A1C 4.6 % (4.5-6.2)
[2023-05-21 08:27] LABS: Chol HDL Ratio 1.8; Cholesterol 72 mg/dL (<=200); HDL Cholesterol 40 mg/dL (40-60); TSH W/ REFLEX FT4 0.849 uIU/mL (0.358-3.740); Triglycerides 36 mg/dL (<=150); Troponin I High Sensitivity 8.8 pg/mL (4.0-51.3); VLDL CHOLESTEROL 7.2 mg/dL
[2023-05-21] MEDS: CARVEDILOL 6.25 MG TABLET PO ×2 (09:40→20:59)
[2023-05-21] MEDS: DOXAZOSIN MESYLATE 2 MG TABLET PO ×2 (09:41→20:59)
[2023-05-21] MEDS: AMIODARONE HCL 200 MG TABLET PO (09:41)
[2023-05-21] MEDS: ACETAMINOPHEN 500 MG TABLET 1000 MG PO ×2 (17:30→23:48)
[2023-05-21] MEDS: ASPIRIN 81 MG TAB.CHEW PO (17:31)
[2023-05-21] MEDS: ATORVASTATIN CALCIUM 40 MG TABLET PO (21:00)
[2023-05-22] VITALS (39 sets, daily range): BP systolic 113–118; BP diastolic 66–87; PULSE 66–108; RESP 2–22; TEMP 36.6; O2SAT 96–98
[2023-05-22 05:26] LABS: Basophils Percent Auto 0.4 % (0.2-2.0); Eosinophils Absolute Auto 0.5 10^3/uL (0.0-0.7); Eosinophils Percent Auto 6.4 % (0.9-7.0); Hematocrit 27.1 % (36.0-48.0); Hemoglobin 8.3 g/dL (12.0-16.0); Immature Granulocytes Abs Auto 0.02 10^3/uL (0.00-0.03); Immature Granulocytes Pct Auto 0.3 % (0.0-0.5); Lymphocytes Absolute Auto 1.4 10^3/uL (1.2-3.8); Lymphocytes Percent Auto 18.9 % (20.5-60.0); Mean Corpuscular HGB Conc 30.6 g/dL (29.9-35.2); Mean Corpuscular Hemoglobin 30.3 pg (26.7-34.0); Mean Corpuscular Volume 98.9 fL (81.0-99.0); Mean Platelet Volume 10.8 fL (9.5-13.5); Monocytes Absolute Auto 0.9 10^3/uL (0.3-0.8); Monocytes Percent Auto 12.3 % (1.7-12.0); Neutrophils Absolute Auto 4.4 10^3/uL (1.4-6.5); Neutrophils Percent Auto 61.7 % (43.0-75.0); Platelet Count 145 10^3/uL (150-450); Red Blood Count 2.74 10^6/uL (4.20-5.40); White Blood Count 7.2 10^3/uL (4.0-11.0)
[2023-05-22 05:45] LABS: Anion Gap 15.2; BUN Creatinine Ratio 15.5; Calcium 7.8 mg/dL (8.5-10.1); Carbon Dioxide 22.1 mmol/L (21.0-32.0); Chloride 108 mmol/L (98-107); Estimated GFR (African America 23 (>=60); Estimated GFR (Non-African Ame 19 (>=60); Glucose 84 mg/dL (74-106); Potassium 4.3 mmol/L (3.5-5.1); Sodium 141 mmol/L (136-145)
[2023-05-22] MEDS: OMEPRAZOLE 40 MG CAPSULE.DR PO (06:04)
--- NOTE | 2023-05-22 08:11 | P.DS_ITS ---
DS: Providers Provider Date of admission: 05/20/23 16:17 Primary care physician: Non-Staff Physician, Admitting clinician: Ricki Lynch Discharging clinician: Padmini Harrison DS: Diagnosis Discharge Diagnosis (1) Atrial flutter, paroxysmal: (2) Atypical chest pain: (3) Hypertension: Qualifiers: Hypertension type: primary hypertension Qualified Code(s): I10 - Essential (primary) hypertension (4) GERD (gastroesophageal reflux disease): Qualifiers: Esophagitis presence: esophagitis presence not specified Qualified Code(s): K21.9 - Gastro-esophageal reflux disease without esophagitis (5) CAD (coronary artery disease), [place] coronary artery: DS: Summary Hospital Course Hospital Course: patient is a 73-year-old female with past medical history of paroxysmal atrial fibrillation. She was recently in [facility] for some abdominal pain and chest pain. She does see a laundry agent and research epidemiologist at the [facility] in [place]. She sees them regularly. She denies being on any blood thinners as her atrial fibrillation has been off and on but never consistent. She takes amiodarone and Coreg as well as hydralazine for her high blood pressure and her heart rate control. At the time of admission she was having some chest discomfort. She quickly converted to NSR after starting IV cardizem so drip was stopped. She remained in NSR until late last night and went back into Afib but rate in the 90's. Troponins ?5 have all been normal slight elevation of proBNP but has been improving. She denies any recent stress test or cardiac catheterizations. Her lipids are within normal limits, her thyroid is within normal limits. Chest pain has resolved. No ST segment changes other than some peaked T's which after reading [facility] records were the same there. Originally started patient on aspirin with prophylactic lovenox but since patient is back in Afib, I started Eliquis 2.5mg BID. I discussed both with patient and that she is rate controlled on the coreg and amiodarone, and she will be on eliquis. We are not able to perform Echocardiograms over the weekend. Since she is asymptomatic, labs have all been stable, she will be discharged home today and is to follow up with her laundry agent at the [facility] this week to further discuss anticoagulation, needs echo and possible stress test. Patient and are in agreement with plan. She is to return to the ER if any worsening signs or symptoms occur. I have also discussed with them that if symptoms worsen, She will need to transferred to higher level of care Hospital that has cardiology consulting services and interventional capabilities. Status at Discharge Functional status at discharge: independent ambulation Overall status at discharge: patient is progressing back to baseline Time Spent with Patient Time attestation: Total time spent providing and/or coordinating discharge services: Time spent: greater than 30 minutes Exam Narrative Exam Narrative: General: Patient is alert, and oriented to person, place and time with normal affect, proper hygiene Skin: no visible rashes, or ulcers Head: atraumatic, acephalic Eyes: PERRLA, no nystagmus present, conjunctiva clear, no scleral icterus Ears: normal gross auditory acuity Nose: symmetric, no discharge, no maxillary or frontal sinus tenderness Heart: Normal rate and irregular rhythm, no murmurs/rubs/gallops Lungs: no audible wheezes, crackles and normal breath sounds all lung shaw Abdomen: Normal audible bowel sounds, no distension, No palpable masses, no organomegaly, no rebound/guarding/ or rigidity Musculoskeletal: no swelling bilateral lower extremities Neuro: CN II-X grossly intact Constitutional Vital Signs, click to edit/add: Last Vital Signs Temp 97.8 F 05/22/23 08:05 Pulse 95 H 05/22/23 08:05 Resp 16 05/22/23 08:05 BP 113/66 05/22/23 08:05 Pulse Ox 98 05/22/23 08:05 O2 Del Method Room Air 05/22/23 08:05 DS: Data Data Completed and Pending Labs on day of discharge: Labs from last 24 hours 05/22/23 05/21/23 04:09 04:03 WBC 7.2 RBC 2.74 L Hgb 8.3 L Hct 27.1 L MCV 98.9 MCH 30.3 MCHC 30.6 RDW 14.0 Plt Count 145 L MPV 10.8 Neut % (Auto) 61.7 Lymph % (Auto) 18.9 L Bartholomew % (Auto) 12.3 H Eos % (Auto) 6.4 Baso % (Auto) 0.4 Neut # (Auto) 4.4 Lymph # (Auto) 1.4 Bartholomew # (Auto) 0.9 H Eos # (Auto) 0.5 Baso # (Auto) 0.0 Abs Immat Gran (auto) 0.02 Imm/Tot Granulo (auto) 0.3 Sodium 141 Potassium 4.3 Chloride 108 H Carbon Dioxide 22.1 Anion Gap 15.2 BUN 39.0 H Creatinine 2.52 H Est GFR ( Amer) 23 L Est GFR (Non-Af Amer) 19 L BUN/Creatinine Ratio 15.5 Glucose 84 Estimat Average Glucose 85 Hemoglobin A1c 4.6 Calcium 7.8 L Troponin I High Sens 8.8 NT-Pro-B Natriuret Pep 7643.0 H* Triglycerides 36 Cholesterol 72 LDL Cholesterol, Calc 25.0 VLDL Cholesterol 7.2 HDL Cholesterol 40 Cholesterol/HDL Ratio 1.8 TSH & Free T4 Interp 0.849 Discharge Plan Discharge Disposition: Home, Self-Care Discharge Medications: New carvedilol 6.25 mg Tablet 6.25 mg PO Q12H 30 Days Qty: 60 0RF Eliquis 5 mg Tablet 2.5 mg PO BID 30 Days Qty: 30 0RF amiodarone [Pacerone] 200 mg Tablet 200 mg PO DAILY 30 Days Qty: 30 0RF Continued pantoprazole 40 mg tablet,delayed release (DR/EC) 40 mg PO DAILY hydralazine 50 mg tablet 50 mg PO Q8H doxazosin 2 mg tablet 2 mg PO BID rosuvastatin 20 mg tablet 20 mg PO .QHS Discontinued amiodarone 200 mg tablet 200 mg PO DAILY carvedilol 12.5 mg tablet 12.5 mg PO Q12H Activity: increase activity as tolerated Diet: advance to your usual diet Print Language: Wolof Patient Instructions: Amiodarone (By mouth) (Cordarone, Pacerone), Carvedilol (By mouth), Apixaban (By mouth) (Eliquis), Blood Thinners (DC) Forms: Portal Instructions Follow Up Appointments: Please call Your [facility] Record Changer Assembler tomorrow for Hospital follow up appointment: Will need echocardiogram and discussion about anticoagulation moving forward, take Eliquis twice daily until then; Keep appt with Pcp on 05/25/23 as scheduled; Body Line Finisher 5-7 days Discharge Date/Time: 05/22/23 12:24
[2023-05-22] MEDS: DOXAZOSIN MESYLATE 2 MG TABLET PO (08:18)
[2023-05-22] MEDS: CARVEDILOL 6.25 MG TABLET PO (08:18)
[2023-05-22] MEDS: ASPIRIN 81 MG TAB.CHEW PO (08:18)
[2023-05-22] MEDS: AMIODARONE HCL 200 MG TABLET PO (08:19)
[2023-05-22] MEDS: APIXABAN 5 MG TABLET 2.5 MG PO (11:37)
--- NOTE | 2023-05-23 15:57 | CM.DCFOLLOWU ---
Person spoke with: Monica How are you feeling? Better How is your pain? Only having a little back pain Did you understand your discharge instructions? Yes Do you have any questions about your discharge instructions? No Were you given any prescriptions at discharge? Yes Were you able to get your prescriptions filled? Yes Do you understand how to take your medications as ordered? Yes Do you have any questions about your follow up appointment and do you plan to keep your follow up appointment? No and I plan on going to appt's. My next 2 are in [place] Is there anything else that you would like to discuss? No Questions/Comments/Concerns/Other:
== END 2023-05-22 12:24 | disposition home or self-care (01) ==
LOC: ER 14:57 → ICU 16:22
PROVIDERS: Admitting Provider Family Medicine; Emergency Provider Emergency Medicine; Visit Provider Family Medicine
DX: I48.92 Unspecified atrial flutter (principal); R07.89 Other chest pain; I10 Essential (primary) hypertension; K21.9 Gastro-esophageal reflux disease without esophagitis; I25.10 Atherosclerotic heart disease of native coronary artery without angina pectoris; Z95.5 Presence of coronary angioplasty implant and graft; Z79.899 Other long term (current) drug therapy; Z87.891 Personal history of nicotine dependence; I25.2 Old myocardial infarction; Z86.010 Personal history of colon polyps; Z90.89 Acquired absence of other organs
CPT/HCPCS: 36415; 71045; 80048; 80061; 83036; 83880; 84443; 84484; 85025; 93005; 96372; 96374; 96375; 99285; G0378

== ENCOUNTER 2023-05-26 01:39 | Inpatient (IN) | payer OTHER, SELFPAY ==
[2023-05-26] VITALS (123 sets, daily range): BP systolic 94–147; BP diastolic 48–86; PULSE 65–124; RESP 20–24; TEMP 36.4–37.2; O2SAT 94–96; BMI 25.1; BMI 24.7
--- NOTE | 2023-05-26 01:49 | ECG_ITS ---
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
--- OUTSIDE RECORDS SUMMARY | 2023-05-26 02:02 | XMS_ITS | CCD ---
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 [Volume fraction] 29.4 % Low 36.3-47.1 [facility] [place] Comment on above: Performed By: #### C MPX, CDP, BNP #### [address] [place] [phone] [employer]: Daniella Lott MD #### GLYHGB #### [address] [address] [employer]: Jere Mas MD Hemoglobin (Bld) [Mass/Vol] 9.5 g/dL Low 11.9-15.1 [facility] [place] Comment on above: Performed By: #### C MPX, CDP, BNP #### [address] [place] [phone] [employer]: Daniella Lott MD #### GLYHGB #### [address] [address] [employer]: Jere Mas MD Immature granulocytes/100 WBC (Bld) 0 % Normal 0 [facility] [place] Comment on above: Performed By: #### C MPX, CDP, BNP #### [address] [place] [address] [employer]: Daniella Lott MD #### GLYHGB #### [address] [phone] [employer]: Jere Mas MD Lymphocytes (Bld) [#/Vol] 1.54 10*3/uL Normal 1.10-3.70 [facility] [place] Comment on above: Performed By: #### C MPX, CDP, BNP #### [facility] [address] [place] [phone] [employer]: Daniella Lott MD #### GLYHGB #### [address] [phone] [employer]: Jere Mas MD Lymphocytes/100 WBC (Bld) 22 % Low 24-43 [facility] [place] Comment on above: Performed By: #### C MPX, CDP, BNP #### [facility] [address] [place] [address] Dr. [place] [phone] [employer]: Daniella Lott MD #### GLYHGB #### [place] [address] [employer]: Jere Mas MD MCH (RBC) [Entitic mass] 31.0 pg Normal 25.2-33.5 [facility] [place] Comment on above: Performed By: #### C MPX, CDP, BNP #### [facility] [address] [place] [address] Dr. [place] [phone] [employer]: Daniella Lott MD #### GLYHGB #### [place] [address] [employer]: Jere Mas MD MCHC (RBC) [Mass/Vol] 32.3 g/dL Normal 28.4-34.8 [facility] [place] Comment on above: Performed By: #### C MPX, CDP, BNP #### [facility] [address] [place] [address] [place] [address] [employer]: Daniella Lott MD #### GLYHGB #### [address] [phone] [employer]: Jere Mas MD MCV (RBC) [Entitic vol] 96.1 fL Normal 82.6-102.9 [facility] [place] Comment on above: Performed By: #### C MPX, CDP, BNP #### [address] [place], [place] [phone] [employer]: Daniella Lott MD #### GLYHGB #### [address] [address] [employer]: Jere Mas MD Monocytes (Bld) [#/Vol] 0.74 10*3/uL Normal 0.10-1.20 [facility] [place] Comment on above: Performed By: #### C MPX, CDP, BNP #### [address] [place] [phone] [employer]: Daniella Lott MD #### GLYHGB #### [address] [address] [employer]: Jere Mas MD Monocytes/100 WBC (Bld) 10 % Normal 3-12 [facility] [place] Comment on above: Performed By: #### C MPX, CDP, BNP #### [address] [place] [phone] [employer]: Daniella Lott MD #### GLYHGB #### [address] [address] [employer]: Jere Mas MD Neutrophil (Seg) 64 % Normal 36-65 [facility] Comment on above: Performed By: #### C MPX, CDP, BNP #### [address] [place], [place] [phone] [employer]: Daniella Lott MD #### GLYHGB #### [address] [address] [employer]: Jere Mas MD NRBC Automated 0.0 per 100 WBC Normal 0.0 [facility] [place] Comment on above: Performed By: #### C MPX, CDP, BNP #### [address] [place] [phone] ( [employer]: Daniella Lott MD #### GLYHGB #### [address] [phone] [employer]: Jere Mas MD Platelet mean volume (Bld) [Entitic vol] 10.1 fL Normal 8.1-13.5 [facility] [place] Comment on above: Performed By: #### C MPX, CDP, BNP #### [address] [place] [phone] [employer]: Daniella Lott MD #### GLYHGB #### [place] [address] [employer]: Jere Mas MD Platelets (Bld) [#/Vol] 125 10*3/uL Low 138-453 [facility] [place] Comment on above: Performed By: #### C MPX, CDP, BNP #### [address] [place] [phone] [employer]: Daniella Lott MD #### GLYHGB #### [place] [address] [employer]: Jere Mas MD RBC (Bld) [#/Vol] 3.06 10*6/uL Low 3.95-5.11 [facility] [place] Comment on above: Performed By: #### C MPX, CDP, BNP #### [address] [place] [address] [employer]: Daniella Lott MD #### GLYHGB #### [address] [phone] [employer]: Jere Mas MD WBC (Bld) [#/Vol] 7.2 10*3/uL Normal 3.5-11.3 [facility] [place] Comment on above: Performed By: #### C MPX, CDP, BNP #### [facility] [address] [place], [place] [phone] [employer]: Daniella Lott MD #### GLYHGB #### [facility] [address], [place] [phone] [employer]: Jere Mas MD Comp Metabolic Pr/rfx MGon 0 - Albumin [Mass/Vol] 2.9 g/dL Low 3.5-5.2 [facility] [place] Comment on above: Performed By: #### T ROPI #### [facility] [address] [place], [place] [phone] [employer]: Daniella Lott MD Albumin/Glob Ratio 1.2 Normal 1.0-2.5 [facility] [place] Comment on above: Performed By: #### T ROPI #### [facility] [address] [place], [place] [phone] [employer]: Daniella Lott MD Alkaline Phos 59 U/L Normal 35-104 [facility] Comment on above: Performed By: #### T ROPI #### [facility] [address] [place], [place] [phone] [employer]: Daniella Lott MD ALT [Catalytic activity/Vol] 5 U/L Normal 5-33 [facility] [place] Comment on above: Performed By: #### T ROPI #### [facility] [address] [place], [place] [phone] [employer]: Daniella Lott MD Anion gap [Moles/Vol] 8 mmol/L Low 9-17 [facility] [place] Comment on above: Performed By: #### T ROPI #### [facility] [address] [place], [place] [phone] [employer]: Daniella Lott MD AST [Catalytic activity/Vol] 12 U/L Normal <32 [facility] [place] Comment on above: Performed By: #### T ROPI #### [facility] [address] [place], [place] [phone] [employer]: Daniella Lott MD Bilirubin [Mass/Vol] 0.5 mg/dL Normal 0.3-1.2 [facility] Comment on above: Performed By: #### T ROPI #### [facility] [address] [place], [place] [phone] [employer]: Daniella Lott MD BUN/CRE Ratio 19 Normal 9-20 [facility] Comment on above: Performed By: #### T ROPI #### [facility] [address] [place], [place] [phone] [employer]: Daniella Lott MD Calcium [Mass/Vol] 7.8 mg/dL Low 8.6-10.4 [facility] [place] Comment on above: Performed By: #### T ROPI #### [facility] [address] [place], [place] [phone] [employer]: Daniella Lott MD Chloride [Moles/Vol] 101 mmol/L Normal 98-107 [facility] [place] Comment on above: Performed By: #### T ROPI #### [facility] [address] [place] [address] Dr. [place], [place] [phone] [employer]: Daniella Lott MD CO2 [Moles/Vol] 23 mmol/L Normal 20-31 [facility] Comment on above: Performed By: #### T ROPI #### [facility] [address] [place] [address] [place] [address] [employer]: Daniella oLtt MD Creatinine [Mass/Vol] 1.4 mg/dL High 0.5-0.9 [facility] [place] Comment on above: Performed By: #### T ROPI #### [facility] [address] [place] [address] [employer]: Daniella Lott MD GFR/1.73 sq M.predicted among non-blacks MDRD (S/P/Bld) [Vol rate/Area] 40 mL/min/{1.73_m2} Low >60 [facility] [place] Comment on above: Result Comment: These results [...] affects renal tubular secretion. Performed By: #### T ROPI #### [facility] [address] [place] [address] [place] [address] [employer]: Daniella Lott MD Glucose [Mass/Vol] 97 mg/dL Normal 70-99 [facility] [place] Comment on above: Performed By: #### T ROPI #### [facility] [address] [place] [address] [employer]: Daniella Lott MD Potassium [Moles/Vol] 3.9 mmol/L Normal 3.7-5.3 [facility] [place] Comment on above: Performed By: #### T ROPI #### [facility] [address] [place] [address] [place] [address] [employer]: Daniella Lott MD Protein [Mass/Vol] 5.4 g/dL Low 6.4-8.3 [facility] [place] Comment on above: Performed By: #### T ROPI #### [facility] [address] [place] [address] [employer]: Daniella Lott MD Sodium [Moles/Vol] 132 mmol/L Low 135-144 [facility] [place] Comment on above: Performed By: #### T ROPI #### [facility] [address] [place] [address] [employer]: Daniella Lott MD Urea nitrogen [Mass/Vol] 27 mg/dL High 8-23 [facility] [place] Comment on above: Performed By: #### T BK #### [facility] [address] [place] [address] [employer]: Daniella Lott MD Comprehensive Metabolic Pane l w/ Reflex to MGon 05-19-2023 Albumin [Mass/Vol] 2.9 g/dL Low 3.5 - 5.2 g/dL [facility] Albumin/Globulin [Mass ratio] 1.2 {ratio} 1.0 - 2.[address] [facility] ALP [Catalytic activity/Vol] 59 U/L 35 - 104 U/L [facility] ALT [Catalytic activity/Vol] 5 U/L 5 - 33 U/L [facility] Anion gap [Moles/Vol] 8 mmol/L Low 9 - 17 mmol/L [facility] AST [Catalytic activity/Vol] 12 U/L NINF - 32 U/L [facility] Bilirubin [Mass/Vol] 0.5 mg/dL 0.3 - 1.2 mg/dL [facility] Calcium [Mass/Vol] 7.8 mg/dL Low 8.6 - 10. 4 mg/dL [facility] Chloride [Moles/Vol] 101 mmol/L 98 - 107 mmol/L [facility] CO2 [Moles/Vol] 23 mmol/L 20 - 31 mmol/L [facility] Creatinine [Mass/Vol] 1.4 mg/dL High 0.5 - 0.9 mg/dL [facility] GFR/1.73 sq M.predicted MDRD (S/P/Bld) [Vol rate/Area] 40 mL/min/{1.73_m2} Low - PINF [facility] Comment on above: These results are [...] [Mass/Vol] 97 mg/dL 70 - 99 mg/dL [facility] Potassium [Moles/Vol] 3.9 mmol/L 3.7 - 5.3 mmol/L [facility] Protein [Mass/Vol] 5.4 g/dL Low 6.4 - 8.3 g/dL [facility] Sodium [Moles/Vol] 132 mmol/L Low 135 - 144 mmol/L [facility] Urea nitrogen [Mass/Vol] 27 mg/dL High 8 - 23 mg/dL [facility] Urea nitrogen/Creatinin e [Mass ratio] 19 mg/mg 9 - [address] [facility] Cult,Urineon 05-19-2023 Cult,Urine Specimen Description .CLEAN CATCH URINE Culture NO GROWTH Report Status FINAL 05/19/2023 Normal [facility] Comment on above: Performed By: #### U RC #### [facility] [employer] [address] [place] [address] [employer]: Jere Mas MD [facility] [address] [place] [address] [employer]: Daniella Lott MD EKG 12 Leadon 05-19-2023 Atrial Rate [address] [facility] Q-T Interval [address] [facility] QRS Duration [address] [facility] QTc Calculation (Bazett) [address] [facility] R [place] [address] [facility] T [place] -[address] [facility] Ventricular Rate 136 BPM [facility] Atrial fibrillation with rapid ventricular response Abnormal ECG When compared with ECG of 17-MAY-2023 16:19, Atrial fibrillation has replaced Sinus rhythm Vent. rate has increased BY 61 BPM Nonspecific T wave abnormality, worse in Inferior leads Confirmed by LAVERNE SILVESTRE ([id number]) on 05/19/2023 12:43:09 AM [facility] Laverne Silvestre MD - 05/19/2023 Atrial fibrillation with rapid ventricular response Abnormal ECG When compared with ECG of 17-MAY-2023 16:19, Atrial fibrillation has replaced Sinus rhythm Vent. rate has increased BY 61 BPM Nonspecific T wave abnormality, worse in Inferior leads Confirmed by LAVERNE SILVESTRE ([id number]) on 05/19/2023 12:43:09 AM [facility] Atrial Rate [address] [facility] P [place] [address] [facility] P-R Interval [address] [facility] Q-T Interval [address] [facility] QRS Duration [address] [facility] QTc Calculation (Bazett) [address] [facility] R [place] [address] [facility] T [place] [address] [facility] Ventricular Rate 73 BPM [facility] Normal sinus rhythm Normal ECG When compared with ECG of 18-MAY-2023 15:47, (unconfirmed) Sinus rhythm has replaced Atrial fibrillation Vent. rate has decreased BY 63 BPM Nonspecific T wave abnormality, improved in Inferior leads Confirmed by LAVERNE SILVESTRE ([id number]) on 05/19/2023 12:38:02 AM [facility] Laverne Silvestre MD - 05/19/2023 Normal sinus rhythm Normal ECG When compared with ECG of 18-MAY-2023 15:47, (unconfirmed) Sinus rhythm has replaced Atrial fibrillation Vent. rate has decreased BY 63 BPM Nonspecific T wave abnormality, improved in Inferior leads Confirmed by LAVERNE SILVESTRE ([id number]) on 05/19/2023 12:38:02 AM [facility] EKG Rhythm Stripon [facility] Hemoglobin A1Con 05-19-2023 Glucose [Mass/Vol] 88 mg/dL Normal [facility] [place] Comment on above: Result Comment: The ADA and AACC recommend providing the estimated average glucose result to permit better patient understanding of their HBA1c result. Performed By: #### T BK #### [facility] [address] [place] [address] [employer]: Daniella Lott MD HbA1c (Bld) [Mass fraction] 4.7 % Normal 4.0-6.0 [facility] [place] Comment on above: Performed By: #### Titus BOURGEOIS #### [facility] [address] [place] [address] [employer]: Daniella Lott MD Lipid Profileon 05-19-2023 Cholesterol [Mass/Vol] 88 mg/dL Normal 0-199 [facility] [place] Comment on above: Result Comment: Cholesterol Guidelines: <200 Desirable 200-240 Borderline >240 Undesirable Performed By: #### JP SMITH, CDP #### [facility] [address] [place] [address] [employer]: Daniella Lott MD Cholesterol in HDL [Mass/Vol] 37 mg/dL Low >40 [facility] Comment on above: Result Comment: HDL Guidelines: <40 Undesirable 40-59 Borderline >59 Desirable Performed By: #### JP SMITH, CDP #### [facility] [address] [place], [place] [phone] [employer]: Daniella Lott MD Cholesterol in LDL [Mass/Vol] 41 mg/dL Normal 0-100 [facility] Comment on above: Result Comment: LDL Guidelines: <100 Desirable 100-129 Near to/above Desirable 130-159 Borderline >159 Undesirable Direct (measured) LDL and calculated LDL are not interchangeable tests. Performed By: #### JP SMITH, CDP #### [facility] [address] [place], [place] [address] [employer]: Daniella Lott MD Cholesterol in VLDL [Mass/Vol] 10 mg/dL Normal [facility] Comment on above: Performed By: #### JP SMITH, CDP #### [facility] [address] [place] [address] [employer]: Daniella Lott MD Cholesterol.total/ Cholesterol in HDL [Mass ratio] 2.0 {ratio} Normal [facility] [place] Comment on above: Performed By: #### JP SMITH, CDP #### [facility] [address] [place] [address] [employer]: Daniella Lott MD Triglyceride [Mass/Vol] 51 mg/dL Normal <150 [facility] Comment on above: Result Comment: Triglyceride Guidelines: <150 Desirable 150-199 Borderline 200-499 High >499 Very high Based on AHA Guidelines for fasting triglyceride, November 2011. Performed By: #### T JP BOURGEOIS, CDP #### [facility] [address] [place] [address] [employer]: Daniella Lott MD No Panel Informationon 05-18 Interpretation and review of laboratory results Abnormal [facility] CBC auto differentialon 04-29 Basophils (Bld) [#/Vol] 0.03 10*3/uL [facility] Basophils/100 WBC (Bld) 1 % 0 - 2 % [facility] Eosinophils (Bld) [#/Vol] 0.06 10*3/uL [facility] Eosinophils/100 WBC (Bld) 1 % 1 - 4 % [facility] Erythrocyte distribution width (RBC) [Ratio] 13.5 % 11.8 - 14.4 % [facility] Hematocrit (Bld) [Volume fraction] 31.5 % Low 36.3 - 47.1 % [facility] Hemoglobin (Bld) [Mass/Vol] 10.1 g/dL Low 11.9 - 15.1 g/dL [facility] Immature granulocytes (Bld) [#/Vol] [facility] Immature granulocytes/100 WBC (Bld) 0 % [address] [facility] Interpretation and review of laboratory results Abnormal [facility] Lymphocytes/100 WBC (Bld) 27 % 24 - 43 % [facility] Lymphocytes/100 WBC (Bld) 1.53 % [facility] MCH (RBC) [Entitic mass] 31.6 pg 25.2 - 33.[address] [facility] MCHC (RBC) [Mass/Vol] 32.1 g/dL 28.4 - 34.8 g/dL [facility] MCV (RBC) [Entitic vol] 98.4 fL 82.6 - 102.[address] [facility] Monocytes/100 WBC (Bld) 11 % 3 - 12 % [facility] Monocytes/100 WBC (Bld) 0.65 % [facility] Neutrophils/100 WBC (Bld) 60 % 36 - 65 % [facility] Nucleated RBC/100 WBC (Bld) [Ratio] 0.0 % 0.0 per [address] [facility] Platelet mean volume (Bld) [Entitic vol] 10.1 fL 8.1 - 13.[address] [facility] Platelets (Bld) [#/Vol] 138 10*3/uL [facility] RBC (Bld) [#/Vol] 3.20 10*6/uL Low 3.95 - 5.1 1 m/uL [facility] Segmented neutrophils/100 WBC (Bld) 3.48 % [facility] WBC other (Bld) [#/Vol] 5.8 [facility] CBC with Diffon 05-18-2023 Abs. Basophil 0.03 k/uL Normal 0.00-0.20 [facility] Comment on above: Performed By: #### T ROPI #### [facility] [address] [place], [place] [phone] [employer]: Daniella Lott MD Abs.Imm.Granulocyt e <0.03 Normal 0.00-0.30 [facility] [place] Comment on above: Performed By: #### T ROPI #### [facility] [address] [place] [address] [employer]: Daniella Lott MD Abs.Neutrophil (Seg) 3.48 k/uL Normal 1.50-8.10 [facility] Comment on above: Performed By: #### T ROPI #### [facility] [address] [place] [address] [employer]: Daniella Lott MD Basophils/100 WBC (Bld) 1 % Normal 0-2 [facility] [facility] [place] Comment on above: Performed By: #### T ROPI #### [address] [place], [place] [id number] [employer]: Daniella Lott MD Eosinophils (Bld) [#/Vol] 0.06 10*3/uL Normal 0.00-0.44 [facility] [place] Comment on above: Performed By: #### T ROPI #### [address] [place], [place] [id number] [employer] [place] [employer]: Daniella Lott MD Eosinophils/100 WBC (Bld) 1 % Normal 1-4 [facility] [place] Comment on above: Performed By: #### T ROPI #### [address] [place] [id number] [employer] [employer] [place] [employer]: Daniella Lott MD Erythrocyte distribution width (RBC) [Ratio] 13.5 % Normal 11.8-14.4 [facility] [place] Comment on above: Performed By: #### T ROPI #### [address] [place], [facility] [employer] [place] [employer]: Daniella Lott MD Hematocrit (Bld) [Volume fraction] 31.5 % Low 36.3-47.1 [facility] [place] Comment on above: Performed By: #### T ROPI #### [address] [place], [facility] [employer] [employer] [place]: Daniella Lott MD Hemoglobin (Bld) [Mass/Vol] 10.1 g/dL Low 11.9-15.1 [facility] [place] Comment on above: Performed By: #### T ROPI #### [address] [place], [place] [id number] [employer]: Daniella Lott MD Immature granulocytes/100 WBC (Bld) 0 % Normal 0 [facility] [place] Comment on above: Performed By: #### T ROPI #### [facility] [address] [place], [place] [phone] [employer] [place] [employer]: Daniella Lott MD Lymphocytes (Bld) [#/Vol] 1.53 10*3/uL Normal 1.10-3.70 [facility] [place] Comment on above: Performed By: #### T ROPI #### [facility] [address] [place], [place] 3457383 [employer] [place] [employer]: Daniella Lott MD Lymphocytes/100 WBC (Bld) 27 % Normal 24-43 [facility] [place] Comment on above: Performed By: #### T ROPI #### [facility] [address] [place], [place] 9721183 [employer]: Daniella Lott MD MCH (RBC) [Entitic mass] 31.6 pg Normal 25.2-33.5 [facility] [place] Comment on above: Performed By: #### T ROPI #### [address] [place], [place] [id number] [employer] [place] [employer]: Daniella Lott MD MCHC (RBC) [Mass/Vol] 32.1 g/dL Normal 28.4-34.8 [facility] [place] Comment on above: Performed By: #### T ROPI #### [address] [place], [place] [phone] [employer] [place] [employer]: Daniella Lott MD MCV (RBC) [Entitic vol] 98.4 fL Normal 82.6-102.9 [facility] [place] Comment on above: Performed By: #### T ROPI #### [address] [place] [address] [employer] [place] [employer]: Daniella Lott MD Monocytes (Bld) [#/Vol] 0.65 10*3/uL Normal 0.10-1.20 [facility] [place] Comment on above: Performed By: #### T ROPI #### [address] [place] [address] [employer] [place] [employer]: Daniella Lott MD Monocytes/100 WBC (Bld) 11 % Normal 3-12 [facility] [place] Comment on above: Performed By: #### T ROPI #### [facility] [address] [place], [place] [phone] [employer] [place] [employer]: Daniella Lott MD Neutrophil (Seg) 60 % Normal 36-65 [facility] Comment on above: Performed By: #### T ROPI #### [facility] [address] [place], [place] [phone] [employer] [place] [employer]: Daniella Lott MD NRBC Automated 0.0 per 100 WBC Normal 0.0 [facility] [place] Comment on above: Performed By: #### T ROPI #### [facility] [address] [place], [place] [phone] [employer]: Danilela Lott MD Platelet mean volume (Bld) [Entitic vol] 10.1 fL Normal 8.1-13.5 [facility] [place] Comment on above: Performed By: #### T ROPI #### [facility] [address] [place], [place] 9983583 [employer]: Daniella Lott MD Platelets (Bld) [#/Vol] 138 10*3/uL Normal 138-453 [facility] [place] Comment on above: Performed By: #### T ROPI #### [facility] [address] [place], [place] 3479383 [employer]: Daniella Lott MD RBC (Bld) [#/Vol] 3.20 10*6/uL Low 3.95-5.11 [facility] [place] Comment on above: Performed By: #### T ROPI #### [facility] [address] [place], [place] 2096983 [employer]: Daniella Lott MD WBC (Bld) [#/Vol] 5.8 10*3/uL Normal 3.5-11.3 [facility] [place] Comment on above: Performed By: #### T ROPI #### [facility] [address] [place], [place] [phone] [employer] [place] [employer]: Daniella Lott MD Comp Metabolic Pr/rfx MGon 0 05-18-2023 Albumin [Mass/Vol] 3.1 g/dL Low 3.5-5.2 [facility] [place] Comment on above: Performed By: #### T ROPI #### [facility] [address] [place], [place] [phone] [employer]: Daniella Lott MD Albumin/Glob Ratio 1.3 Normal 1.0-2.5 [facility] [place] Comment on above: Performed By: #### T ROPI #### [facility] [address] [place], [place] 7087383 [employer]: Daniella Lott MD Alkaline Phos 58 U/L Normal 35-104 [facility] Comment on above: Performed By: #### T ROPI #### [facility] [address] [place], [place] [phone] [employer]: Daniella Lott MD ALT [Catalytic activity/Vol] 5 U/L Normal 5-33 [facility] [place] Comment on above: Performed By: #### T ROPI #### [facility] [address] [place], [place] 0221183 [employer]: Daniella Lott MD Anion gap [Moles/Vol] 10 mmol/L Normal 9-17 [facility] [place] Comment on above: Performed By: #### T ROPI #### [facility] [address] [place], [place] 4539783 [employer]: Daniella Lott MD AST [Catalytic activity/Vol] 13 U/L Normal <32 [facility] [place] Comment on above: Performed By: #### T ROPI #### [facility] [address] [place], [place] 6253583 [employer]: Daniella Lott MD Bilirubin [Mass/Vol] 0.6 mg/dL Normal 0.3-1.2 [facility] [place] Comment on above: Performed By: #### T ROPI #### [facility] [address] [place], [place] 6773583 [employer]: Daniella Lott MD BUN/CRE Ratio 18 Normal 9-20 [facility] Comment on above: Performed By: #### T ROPI #### [facility] [address] [place], [place] 9068983 [employer] [place] [employer]: Daniella Lott MD Calcium [Mass/Vol] 8.0 mg/dL Low 8.6-10.4 [facility] [place] Comment on above: Performed By: #### T ROPI #### [facility] [address] [place], [place] 5547683 [employer]: Daniella Lott MD Chloride [Moles/Vol] 104 mmol/L Normal 98-107 [facility] [place] Comment on above: Performed By: #### T ROPI #### [facility] [address] [place], [place] 9307183 [employer] [place] [employer]: Daniella Lott MD CO2 [Moles/Vol] 22 mmol/L Normal 20-31 [facility] Comment on above: Performed By: #### T ROPI #### [facility] [address] [place], [place] 7829083 [employer] [place] [employer]: Daniella Lott MD Creatinine [Mass/Vol] 1.3 mg/dL High 0.5-0.9 [facility] [place] Comment on above: Performed By: #### T ROPI #### [facility] [address] [place] [address] [employer] [place] [employer]: Daniella Lott MD GFR/1.73 sq M.predicted among non-blacks MDRD (S/P/Bld) [Vol rate/Area] 44 mL/min/{1.73_m2} Low >60 [facility] [place] Comment on above: Result Comment: These results [...] affects renal tubular secretion. Performed By: #### T ROPI #### [facility] [address] [place] [address] [employer] [place] [employer]: Daniella Lott MD Glucose [Mass/Vol] 83 mg/dL Normal 70-99 [facility] [place] Comment on above: Performed By: #### T ROPI #### [facility] [address] [place] [address] [employer] [place] [employer]: Daniella Lott MD Potassium [Moles/Vol] 4.1 mmol/L Normal 3.7-5.3 [facility] [place] Comment on above: Performed By: #### T ROPI #### [address] [place] [address] [employer] [place] [employer]: Daniella Lott MD Protein [Mass/Vol] 5.4 g/dL Low 6.4-8.3 [facility] [place] Comment on above: Performed By: #### T ROPI #### [facility] [address] [place] [address] Dr. [place], [place] 2603483 [employer]: Danielal Lott MD Sodium [Moles/Vol] 136 mmol/L Normal 135-144 [facility] [place] Comment on above: Performed By: #### T ROPI #### [facility] [address] [place] [address] [employer] [place] [employer]: Daniella Lott MD Urea nitrogen [Mass/Vol] 23 mg/dL Normal 8-23 [facility] [place] Comment on above: Performed By: #### T ROPI #### [facility] [address] [place] [address] [employer] [place] [employer]: Daniella Lott MD Comprehensive Metabolic Pane l w/ Reflex to MGon 05-18-2023 Albumin [Mass/Vol] 3.1 g/dL Low 3.5 - 5.2 g/dL [facility] Albumin/Globulin [Mass ratio] 1.3 {ratio} 1.0 - 2.[address] [facility] ALP [Catalytic activity/Vol] 58 U/L 35 - 104 U/L [facility] ALT [Catalytic activity/Vol] 5 U/L 5 - 33 U/L [facility] Anion gap [Moles/Vol] 10 mmol/L 9 - 17 mmol/L [facility] AST [Catalytic activity/Vol] 13 U/L NINF - 32 U/L [facility]ALSolstice MedicalC[facility] Bilirubin [Mass/Vol] 0.6 mg/dL 0.3 - 1.2 mg/dL [facility] Calcium [Mass/Vol] 8.0 mg/dL Low 8.6 - 10. 4 mg/dL [facility] Chloride [Moles/Vol] 104 mmol/L 98 - 107 mmol/L [facility] CO2 [Moles/Vol] 22 mmol/L 20 - 31 mmol/L [facility]ALSolst[facility] MedicalC[facility] Creatinine [Mass/Vol] 1.3 mg/dL High 0.5 - 0.9 mg/dL [facility]ALSolst[facility] MedicalC[facility] GFR/1.73 sq M.predicted MDRD (S/P/Bld) [Vol rate/Area] 44 mL/min/{1.73_m2} Low - PINF [facility] SystemsC[facility] Comment on above: These results are [...] [Mass/Vol] 83 mg/dL 70 - 99 mg/dL [facility]ITAL[facility] Interpretation and review of laboratory results Abnormal [facility]ALSolst[facility]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 Start: 01-29-2024 Hemoglobin/Hematocrit Hemoglobin/Hem atocrit [facility] Start: 01-29-2024 Hepatitis B surface antibody level LDL Cholesterol [facility] Start: 01-29-2024 Serum Creatinine Serum Creatinine Cl [facility] Start: 01-15-2024 BP Controlled (<130/80) BP Controlle d (<130/80) [facility] Start: 11-28-2023 DIABETES SCREEN DIABETES SCREEN [facility] Start: 11-16-2023 End: 01-16-2024 25-hydroxyvitamin D3 [Mass/volume] in Serum or Plasma VITAMIN D 25 HYDROXY Lab Routine Benign hypertension with chronic kidney disease, stage III (HCC) Stage 3b chronic kidney disease (HCC) Hyperlipidemia, unspecified hyperlipidemia type Expected: 11/16/2023, Expires: 01/16/2024 [facility] Work Phone: Comment on above: Expected: 11/16/2023 , Expires: 01/16/2024 Start: 11-16-2023 End: 01-16-2024 ALBUMIN/CREAT RATIO RND UR ALBUMIN/CREAT RATIO RND UR Lab Routine Benign hypertension with chronic kidney disease, stage III (HCC) Stage 3b chronic kidney disease (HCC) Hyperlipidemia, unspecified hyperlipidemia type Expected: 11/16/2023, Expires: 01/16/2024 [facility] Work Phone: Comment on above: Expected: 11/16/2023 , Expires: 01/16/2024 Start: 11-16-2023 End: 01-16-2024 CBC panel - Blood by Automated count CBC Lab Routine Benign hypertension with chronic kidney disease, stage III (HCC) Stage 3b chronic kidney disease (HCC) Hyperlipidemia, unspecified hyperlipidemia type Expected: 11/16/2023, Expires: 01/16/2024 [facility] Work Phone: Comment on above: Expected: 11/16/2023 , Expires: 01/16/2024 Start: 11-16-2023 End: 01-16-2024 Creatinine [Mass/volume] in Urine collected for unspecified duration CREATININE RANDOM UR Lab Routine Benign hypertension with chronic kidney disease, stage III (HCC) Stage 3b chronic kidney disease (HCC) Hyperlipidemia, unspecified hyperlipidemia type Expected: 11/16/2023, Expires: 01/16/2024 [facility] Work Phone: Comment on above: Expected: 11/16/2023 , Expires: 01/16/2024 Start: 11-16-2023 End: 01-16-2024 Parathyrin.intact [Mass/volume] in Serum or Plasma PTH INTACT BLD Lab Routine Benign hypertension with chronic kidney disease, stage III (HCC) Stage 3b chronic kidney disease (HCC) Hyperlipidemia, unspecified hyperlipidemia type Expected: 11/16/2023, Expires: 01/16/2024 [facility] Work Phone: Comment on above: Expected: 11/16/2023 , Expires: 01/16/2024 Start: 11-16-2023 End: 01-16-2024 Protein [Mass/volume] in Urine PROTEIN RANDOM UR Lab Routine Benign hypertension with chronic kidney disease, stage III (HCC) Stage 3b chronic kidney disease (HCC) Hyperlipidemia, unspecified hyperlipidemia type Expected: 11/16/2023, Expires: 01/16/2024 [facility] Work Phone: Comment on above: Expected: 11/16/2023 , Expires: 01/16/2024 Start: 11-16-2023 End: 01-16-2024 Renal function 2000 panel - Serum or Plasma RENAL FUNCTION PANEL Lab Routine Benign hypertension with chronic kidney disease, stage III (HCC) Stage 3b chronic kidney disease (HCC) Hyperlipidemia, unspecified hyperlipidemia type Expected: 11/16/2023, Expires: 01/16/2024 [facility] Work Phone: Comment on above: Expected: 11/16/2023 , Expires: 01/16/2024 Start: 10-22-2023 ANNUAL PCP TEAM FUR TINTER JEFF DISEASE VISIT ANNUAL PCP TEAM CHRONIC DISEASE VISIT [facility] Start: 10-22-2023 BP CONTROLLED (<130/80) BP CONTROLLE D (<130/80) [facility] Start: 10-22-2023 SHINGRIX VACCINE (1 of 2) SHINGRIX VACCINE (1 of 2) [facility] Comment on above: Postponed from 04/04 (Declined at this time) Start: 10-22-2023 Urine microalbumin profile [facility] Comment on above: Postponed from 06/10 (Declined at this time) Start: 07-29-2023 HEMOGLOBIN/HEMATOCRIT HEMOGLOBIN/HEM ATOCRIT [facility] Start: 07-29-2023 SERUM CREATININE SERUM CREATININE Cl [facility] Start: 07-27-2023 End: 10-26-2023 Basic metabolic 2000 panel - Serum or Plasma BASIC METABOLIC PNL Lab Routine Paroxysmal atrial fibrillation (HCC) Expected: 07/27/2023 (Approximate), Expires: 10/26/2023 [facility] Work Phone: Comment on above: Expected: 07/27/2023 (Approximate), Expires: 10/26/2023 Start: 07-27-2023 End: 10-26-2023 CBC W Auto Differential panel - Blood CBC + DIFF Lab Routine Paroxysmal atrial fibrillation (HCC) Expected: 07/27/2023 (Approximate), Expires: 10/26/2023 [facility] Work Phone: Comment on above: Expected: 07/27/2023 (Approximate), Expires: 10/26/2023 Start: 07-27-2023 End: 10-26-2023 Magnesium [Mass/volume] in Serum or Plasma MAGNESIUM BLD Lab Routine Paroxysmal atrial fibrillation (HCC) Expected: 07/27/2023 (Approximate), Expires: 10/26/2023 [facility] Work Phone: Comment on above: Expected: 07/27/2023 (Approximate), Expires: 10/26/2023 Start: 07-27-2023 End: 02-27-2024 Radiologic exam chest 2 views XR CHEST 2V FRONTAL/LAT Radiology Routine Paroxysmal atrial fibrillation (HCC) Expected: 07/27/2023 (Approximate), Expires: 02/27/2024 [facility] Work Phone: Comment on above: Expected: 07/27/2023 (Approximate), Expires: 02/27/2024 Start: 05-17-2023 End: 05-17-2023 Patient education based on identified need [facility] Start: 02-28-2023 Advance Directive Discussion Advance Directive Discussion [facility] Start: 02-28-2023 Annual Wellness Visi t (Medicare Advantage) Annual Wellness Visit (Medicare Advantage) SHEA MCDUFFIE [facility] Start: 02-28-2023 Depression Assessment Depression Ass essment [facility] Start: 01-27-2023 End: 03-29-2023 Basic metabolic 2000 panel - Serum or Plasma BASIC METABOLIC PNL Lab Routine Paroxysmal atrial fibrillation (HCC) Hypertension, unspecified type Atherosclerotic peripheral vascular disease with intermittent claudication (HCC) Expected: 01/27/2023, Expires: 03/29/2023 [facility] Work Phone: Comment on above: Expected: 01/27/2023 , Expires: 03/29/2023 Start: 01-27-2023 End: 03-29-2023 CBC W Auto Differential panel - Blood CBC + DIFF Lab Routine Paroxysmal atrial fibrillation (HCC) Hypertension, unspecified type Atherosclerotic peripheral vascular disease with intermittent claudication (HCC) Expected: 01/27/2023, Expires: 03/29/2023 [facility] Work Phone: Comment on above: Expected: 01/27/2023 , Expires: 03/29/2023 Start: 01-27-2023 End: 03-29-2023 Magnesium [Mass/volume] in Serum or Plasma MAGNESIUM BLD Lab Routine Paroxysmal atrial fibrillation (HCC) Hypertension, unspecified type Atherosclerotic peripheral vascular disease with intermittent claudication (HCC) Expected: 01/27/2023, Expires: 03/29/2023 [facility] Work Phone: Comment on above: Expected: 01/27/2023 , Expires: 03/29/2023 Start: 01-26-2023 BP CONTROLLED (<130/80) BP CONTROLLE D (<130/80) [facility] Start: 01-21-2023 End: 03-23-2023 Lipid 1996 panel - Serum or Plasma LIPID PANEL BASIC Lab Routine Coronary artery disease involving [place] coronary artery of [place] heart without angina pectoris Expected: 01/21/2023, Expires: 03/23/2023 [facility] Work Phone: Comment on above: Expected: 01/21/2023 , Expires: 03/23/2023 Start: 11-22-2022 End: 07-29-2023 OUTSIDE VENDOR CARDIAC OUTPATIENT EXTENDED RHYTHM RECORDING (WITHOUT TELEMETRY) OUTSIDE VENDOR CARDIAC OUTPATIENT EXTENDED RHYTHM RECORDING (WITHOUT TELEMETRY) Holter Routine Paroxysmal atrial fibrillation (HCC) Hypertension, unspecified type Atherosclerotic peripheral vascular disease with intermittent claudication (HCC) Expected: 11/22/2022, Expires: 07/29/2023 [facility] Work Phone: Comment on above: Expected: 11/22/2022 , Expires: 07/29/2023 Start: 10-29-2022 Influenza vaccination [facility] Start: 10-26-2022 HEMOGLOBIN/HEMATOCRIT HEMOGLOBIN/HEM ATOCRIT [facility] Start: 10-26-2022 SERUM CREATININE SERUM CREATININE Cl [facility] Start: 10-12-2022 ANNUAL PCP TEAM FUR TINTER JEFF DISEASE VISIT ANNUAL PCP TEAM CHRONIC DISEASE VISIT [facility] Start: 07-26-2022 End: 09-25-2022 Basic metabolic 2000 panel - Serum or Plasma BASIC METABOLIC PNL Lab Routine Paroxysmal atrial fibrillation (HCC) History of ST elevation myocardial infarction (STEMI) PAF (paroxysmal atrial fibrillation) (HCC) Expected: 07/26/2022, Expires: 09/25/2022 [facility] Work Phone: Comment on above: Expected: 07/26/2022 , Expires: 09/25/2022 Start: 07-26-2022 End: 09-25-2022 CBC W Auto Differential panel - Blood CBC + DIFF Lab Routine Paroxysmal atrial fibrillation (HCC) History of ST elevation myocardial infarction (STEMI) PAF (paroxysmal atrial fibrillation) (HCC) Expected: 07/26/2022, Expires: 09/25/2022 [facility] Work Phone: Comment on above: Expected: 07/26/2022 , Expires: 09/25/2022 Start: 07-26-2022 End: 09-25-2022 Magnesium [Mass/volume] in Serum or Plasma MAGNESIUM BLD Lab Routine Paroxysmal atrial fibrillation (HCC) History of ST elevation myocardial infarction (STEMI) PAF (paroxysmal atrial fibrillation) (HCC) Expected: 07/26/2022, Expires: 09/25/2022 [facility] Work Phone: Comment on above: Expected: 07/26/2022 , Expires: 09/25/2022 Start: 04-28-2022 End: 01-26-2023 OUTSIDE VENDOR CARDIAC OUTPATIENT EXTENDED RHYTHM RECORDING (WITHOUT TELEMETRY) OUTSIDE VENDOR CARDIAC OUTPATIENT EXTENDED RHYTHM RECORDING (WITHOUT TELEMETRY) Holter Routine Paroxysmal atrial fibrillation (HCC) History of ST elevation myocardial infarction (STEMI) PAF (paroxysmal atrial fibrillation) (HCC) Expected: 04/28/2022, Expires: 01/26/2023 [facility] Work Phone: Comment on above: Expected: 04/28/2022 , Expires: 01/26/2023 Start: 03-23-2022 ANNUAL PCP TEAM FUR TINTER JEFF DISEASE VISIT ANNUAL PCP TEAM CHRONIC DISEASE VISIT [facility] Start: 03-23-2022 BP CONTROLLED (<130/80) BP CONTROLLE D (<130/80) [facility] Start: 02-28-2022 ADVANCE DIRECTIVE DISCUSSION ADVANCE DIRECTIVE DISCUSSION [facility] Start: 02-28-2022 DEPRESSION ASSESSMENT DEPRESSION ASS ESSMENT [facility] Start: 02-10-2022 End: 04-12-2022 Lipid 1996 panel - Serum or Plasma LIPID PANEL BASIC Lab Routine Mixed hyperlipidemia Expected: 02/10/2022 (Approximate), Expires: 04/12/2022 [facility] Work Phone: Comment on above: Expected: 02/10/2022 (Approximate), Expires: 04/12/2022 Start: 11-27-2021 Hepatitis B surface antibody level LDL CHOLESTEROL [facility] Start: 11-27-2021 SERUM CREATININE SERUM CREATININE Cl [facility] Start: 10-29-2021 Influenza vaccination INFLUENZA (#1) [facility] Start: 09-27-2021 Adult depression screening assessment DEPRESSION SCREENING [facility] Start: 09-18-2021 COVID-19 VACCINE (#1) COVID-19 VACCI NE (#1) [facility] Comment on above: Postponed from 04/04 (Declined at this time) Start: 09-18-2021 COVID-19 VACCINE (1) COVID-19 VACCIN E (1) [facility] Comment on above: Postponed from 04/04 (Declined at this time) Start: 07-29-2021 Mammography [facility] Start: 07-29-2021 Screening for malign ant neoplasm of breast Mammogram Screening [facility] Start: 07-18-2021 HEMOGLOBIN/HEMATOCRIT HEMOGLOBIN/HEM ATOCRIT [facility] Start: 03-20-2021 BP CONTROLLED (<130/80) BP CONTROLLE D (<130/80) [facility] Start: 02-28-2021 ADVANCE DIRECTIVE DISCUSSION ADVANCE DIRECTIVE DISCUSSION [facility] Start: 02-28-2021 DEPRESSION ASSESSMENT DEPRESSION ASS ESSMENT [facility] Start: 06-10-2016 DTaP/Tdap/Td vaccine (1 - Tdap) DTaP/Tdap/Td vaccine (1 - Tdap) [facility] Start: 06-10-2016 Urine microalbumin profile DTAP,TDAP,TD (1 - Tdap) [facility] Start: 2011 Respiratory Syncytia l Virus (RSV) or age 60 yrs+ (1 - 1-dose 60+ series) Respiratory Syncytial Virus (RSV) or age 60 yrs+ (1 - 1-dose 60+ series) [facility] Start: 2011 RSV Vaccine (1 - 1-d ose 60+ series) RSV Vaccine (1 - 1-dose 60+ series) [facility] Start: 2001 Screening for malign ant neoplasm of breast Breast cancer screen [facility] Start: 2001 Shingles vaccine (1 of 2) Shingles vaccine (1 of 2) [facility] Start: 2001 SHINGRIX VACCINE (1 of 2) SHINGRIX VACCINE (1 of 2) [facility] Start: 1996 COLOGUARD (FIT-DNA) COLOGUARD (FIT-D NA) [facility] Start: [address] COLONOGRAPHY [facility] Start: 1996 FECAL OCCULT BLOOD FECAL OCCULT BLOO D [facility] Start: 1996 Screening for malign ant neoplasm of colon [facility] Start: 1996 SIGMOIDOSCOPY SIGMOIDOSCOPY [facility] Start: 1969 Hepatitis C screening Hepatitis C sc reen [facility] [place] Start: 1963 Depression Screen Depression Screen [facility] [place] Start: 1961 Lipid panel Lipids [facility] [employer] Start: 1951 COVID-19 VACCINE (#1) COVID-19 VACCI NE (#1) [facility] End: 08-24-2023 CBC W Auto Differential panel - Blood CBC auto differential Lab Routine Tomorrow AM for 99 Occurrences starting 05/18/2023 until 08/24/2023, 2 completed UB. Comment on above: Tomorrow AM for 99 O ccurrences starting 05/18/2023 until 08/24/2023, 2 completed End: 08-24-2023 Comprehensive Metabolic Panel w/ Reflex to MG Comprehensive Metabolic Panel w/ Reflex to MG Lab Routine Tomorrow AM for 99 Occurrences starting 05/18/2023 until 08/24/2023, 2 completed UB. Comment on above: Tomorrow AM for 99 O ccurrences starting 05/18/2023 until 08/24/2023, 2 completed End: 12-11-2022 Ct orbit sella/post fossa/ear w/o contrast matrl CT TEMP BONES WO IVCON Radiology Routine Pulsatile tinnitus, left ear Lightheadedness 1 Occurrences starting 11/11/2021 until 12/11/2022 [facility] Work Phone: Comment on above: 1 Occurrences starti ng 11/11/2021 until 12/11/2022 End: 05-18-2023 Culture, Urine [facility] [place] Comment on above: One Time for 1 Occur rences starting 05/18/2023 until 05/18/2023 End: 08-11-2022 ECG COMPLETE ECG COMPLETE ECG Routine Paroxysmal atrial fibrillation (HCC) 1 Occurrences starting 08/11/2021 until 08/11/2022 [facility] Work Phone: Comment on above: 1 Occurrences starti ng 08/11/2021 until 08/11/2022 End: 01-26-2023 ECG COMPLETE ECG COMPLETE ECG Routine Paroxysmal atrial fibrillation (HCC) History of ST elevation myocardial infarction (STEMI) PAF (paroxysmal atrial fibrillation) (HCC) 1 Occurrences starting 01/26/2022 until 01/26/2023 [facility] Work Phone: Comment on above: 1 Occurrences starti ng 01/26/2022 until 01/26/2023 End: 07-29-2023 ECG COMPLETE ECG COMPLETE ECG Routine Paroxysmal atrial fibrillation (HCC) Hypertension, unspecified type Atherosclerotic peripheral vascular disease with intermittent claudication (HCC) 1 Occurrences starting 07/28/2022 until 07/29/2023 [facility] Work Phone: Comment on above: 1 Occurrences starti ng 07/28/2022 until 07/29/2023 ECG COMPLETE ECG COMPLETE ECG 01/28/2023 10:20 AM EST [facility] End: 05-18-2023 Echo (TTE) complete (PRN contrast/bubble/strain/ 3D) Echo (TTE) complete (PRN contrast/bubble/strain/3D) CV Echocardiography Routine Chest pain, unspecified type Right sided abdominal pain Coronary artery disease involving [place] coronary artery of [place] heart without angina pectoris Mixed hyperlipidemia Essential hypertension Acute deep vein thrombosis (DVT) of distal vein of right lower extremity (HCC) One Time for 1 Occurrences starting 05/18/2023 until 05/18/2023 UB. Comment on above: One Time for 1 Occur rences starting 05/18/2023 until 05/18/2023 EKG 12 Lead EKG 12 Lead ECG Routine 05/19/2023 5:18 AM EDT UB. End: 05-19-2023 Hemoglobin A1c/Hemoglobin.total in Blood Hemoglobin A1C Lab Routine Tomorrow AM for 1 Occurrences starting 05/19/2023 until 05/19/2023 UB. Comment on above: Tomorrow AM for 1 Oc currences starting 05/19/2023 until 05/19/2023 Hemoglobin A1c/Hemoglobin.total in Blood Hemoglobin A1C Lab Routine 05/19/2023 5:30 AM EDT UB. End: 05-19-2023 Lipid panel Lipid Panel Lab Routine Tomorrow AM for 1 Occurrences starting 05/19/2023 until 05/19/2023 UB. Comment on above: Tomorrow AM for 1 Oc currences starting 05/19/2023 until 05/19/2023 Lipid panel Lipid Panel Lab Routine 05/19/2023 5:30 AM EDT UB. End: 04-02-2023 ESTHER SCREENING ESTHER SCREENING Radiology Routine Encounter for screening mammogram for breast cancer 1 Occurrences starting 03/03/2022 until 04/02/2023 [facility] Work Phone: Comment on above: 1 Occurrences starti ng 03/03/2022 until 04/02/2023 End: 03-03-2024 ESTHER SCREENING ESTHER SCREENING Radiology Routine Encounter for screening mammogram for breast cancer 1 Occurrences starting 02/02/2023 until 03/03/2024 [facility] Work Phone: Comment on above: 1 Occurrences starti ng 02/02/2023 until 03/03/2024 MR Abdomen WO and W contrast IV MRI ABDOMEN W WO CONTRAST MRCP Imaging Routine 05/18/2023 1:05 PM EDT UB. OUTSIDE VENDOR CARDI AC OUTPATIENT EXTENDED RHYTHM RECORDING (WITHOUT TELEMETRY) OUTSIDE VENDOR CARDIAC OUTPATIENT EXTENDED RHYTHM RECORDING (WITHOUT TELEMETRY) Holter Routine Paroxysmal atrial fibrillation (HCC) Ordered: 06/26/2021 [facility] Work Phone: Comment on above: Ordered: 06/26/2021 OUTSIDE VENDOR CARDI AC OUTPATIENT EXTENDED RHYTHM RECORDING (WITHOUT TELEMETRY) OUTSIDE VENDOR CARDIAC OUTPATIENT EXTENDED RHYTHM RECORDING (WITHOUT TELEMETRY) Holter Routine Paroxysmal atrial fibrillation (HCC) History of ST elevation myocardial infarction (STEMI) PAF (paroxysmal atrial fibrillation) (HCC) Ordered: 01/26/2022 [facility] Work Phone: Comment on above: Ordered: 01/26/2022 OUTSIDE VENDOR CARDI AC OUTPATIENT EXTENDED RHYTHM RECORDING (WITHOUT TELEMETRY) OUTSIDE VENDOR CARDIAC OUTPATIENT EXTENDED RHYTHM RECORDING (WITHOUT TELEMETRY) Holter Routine Paroxysmal atrial fibrillation (HCC) Ordered: 01/28/2023 [facility] Work Phone: Comment on above: Ordered: 01/28/2023 Oxygen therapy [Mini mum Data Set] Initiate Oxygen Therapy Protocol Respiratory Care Routine As Needed until discontinued starting 05/17/2023 UB. Comment on above: As Needed until disc ontinued starting 05/17/2023 End: 10-30-2022 PVR ANK PRESS [facility] PVR ANK PRESS [facility] Vascular Lab Routine PVD (peripheral vascular disease) (HCC) 1 Occurrences starting 10/30/2021 until 10/30/2022 [facility] Work Phone: Comment on above: 1 Occurrences starti ng 10/30/2021 until 10/30/2022 End: 11-16-2023 PVR ANK PRESS [facility] PVR ANK PRESS [facility] Vascular Lab Routine PVD (peripheral vascular disease) (HCC) Aortoiliac occlusive disease (HCC) Carotid artery stenosis, asymptomatic, bilateral 1 Occurrences starting 11/15/2022 until 11/16/2023 [facility] Work Phone: Comment on above: 1 Occurrences starti ng 11/15/2022 until 11/16/2023 End: 02-25-2023 Radiologic exam chest 2 views XR CHEST 2V FRONTAL/LAT Radiology Routine Paroxysmal atrial fibrillation (HCC) History of ST elevation myocardial infarction (STEMI) PAF (paroxysmal atrial fibrillation) (HCC) 1 Occurrences starting 01/26/2022 until 02/25/2023 [facility] Work Phone: Comment on above: 1 Occurrences starti ng 01/26/2022 until 02/25/2023 End: 01-15-2024 [facility] Audiology Routine Pulsatile tinnitus, left ear 1 Occurrences starting 01/14/2023 until 01/15/2024 [facility] Work Phone: Comment on above: 1 Occurrences starti ng 01/14/2023 until 01/15/2024 End: 11-16-2023 US ABD AORTA COMPLETE [facility] US ABD AORTA COMPLETE [facility] Vascular Lab Routine PVD (peripheral vascular disease) (HCC) Aortoiliac occlusive disease (HCC) Carotid artery stenosis, asymptomatic, bilateral 1 Occurrences starting 11/15/2022 until 11/16/2023 [facility] Work Phone: Comment on above: 1 Occurrences starti ng 11/15/2022 until 11/16/2023 End: 11-16-2023 US CAROTID ARTERIES [facility] US CAROTID ARTERIES [facility] Vascular Lab Routine PVD (peripheral vascular disease) (HCC) Aortoiliac occlusive disease (HCC) Carotid artery stenosis, asymptomatic, bilateral 1 Occurrences starting 11/15/2022 until 11/16/2023 [facility] Work Phone: Comment on above: 1 Occurrences starti ng 11/15/2022 until 11/16/2023 [facility] Immunizations Immunization Date Immunization Notes Care Provider Fa [facility] 11-27-2020 influenza, high-dose , quadrivalent vaccine (FLUZONE HIGH DOSE QUADRIVALENT) Risa Warner APRN.MACHINE TURNER Work Phone: [facility] 11-27-2020 influenza virus vacc ine, unspecified formulation Risa Warner APRN.MACHINE TURNER Work Phone: [facility] 03-20-2020 influenza, high-dose , quadrivalent vaccine (FLUZONE HIGH DOSE QUADRIVALENT) Risa Warner APRN.MACHINE TURNER Work Phone: [facility] 12-01-2018 influenza, high dose seasonal, preservative-free Risa Warner APRN.MACHINE TURNER Work Phone: [facility] Work Phone: 12-01-2018 pneumococcal polysaccharide vaccine, 23 valent Risa Warner APRN.MACHINE TURNER Work Phone: [facility] Work Phone: 01-25-2017 influenza, high dose seasonal, preservative-free Risa Warner APRN.MACHINE TURNER Work Phone: [facility] 06-09-2016 pneumococcal conjuga te vaccine, 13 valent Risa Warner APRN.MACHINE TURNER Work Phone: [facility] 06-09-2016 tetanus and diphther ia toxoids, adsorbed, preservative free, for adult use (5 Lf of tetanus toxoid and 2 Lf of diphtheria toxoid) Risa Warner APRN.CNP Work Phone: [facility] Payers Date Payer Category Payer Unknown [id number] 2022 Unknown [id number] 2021 Medicare UHC AARP MEDICAR E [facility] AAR MEDICARE O [id number] 2021-Present [phone] [address] [address] [place] [address] O [id number] 2021 Medicare [id number] 2021 Medicare [id number] 2015 Unknown [id number] 1959 Medicare [id number] 1959 Private Health Insurance [id number] 1950 Unknown [id number] 1950 Unknown [id number] 1950 Unknown [id number] [facility] [id number] Social History Date Type Detail Facility Start: 02-17-2016 End: 11-10-2021 Tobacco smoking status NHIS Ex-smoker [facility] Work Phone: End: 02-28-2009 History of tobacco use Current smoker [facility] Work Phone: End: 02-28-2009 History of tobacco use Cigarette Smoker [facility] Work Phone: Start: 02-17-2016 End: 07-28-2022 Cigarettes smoked current (pack per day) - Reported 1.5 [facility] Start: 02-17-2016 End: 11-10-2021 Tobacco use and exposure Smokeless tobacco non-user [facility] Work Phone: Start: 03-23-2021 End: 04-25-2023 Alcohol intake Current drinker of alcohol (finding) [facility] Start: 09-28-2020 History SDOH Alcohol Frequency 1 [facility] Start: 09-28-2020 History SDOH Alcohol Std Drinks 98 [facility] Start: 08-19-2015 End: 06-30-2016 History SDOH Alcohol Comment social [facility] Start: 09-28-2020 History SDOH Social Connections Phone 3 [facility] Start: 09-28-2020 History SDOH Social Connections Get Together 2 [facility] Start: 09-28-2020 History SDOH Social Connections Living 4 [facility] Start: 09-28-2020 History SDOH Physica l Activity DPW 5 [facility] Start: 09-27-2020 Education 10 [facility] Start: 1950 Sex Assigned At Female [facility] Start: 06-07-2021 End: 01-26-2022 Exposure to SARS-CoV-2 (event) Not sure [facility] Start: 10-02-2021 End: 11-11-2021 Exposure to SARS-CoV-2 (event) Unable to assess [facility] Work Phone: Start: 09-27-2020 End: 07-28-2022 Social connection and isolation panel [facility] Do you belong to any clubs or organizations such as jew groups, unions, fraternal or athletic groups, or school groups? Patient refused [facility] Are you now , , , , never or living with a partner? [facility] How often to you hav e a drink containing alcohol? Never [facility] Do you feel stress - tense, restless, nervous, or anxious, or unable to sleep at night because your mind is troubled all the time - these days [OSQ] Not at all [facility] (I/We) worried wheth er (my/our) food would run out before (I/we) got money to buy more. Never true [facility] In the past 12 month s, was there a time when you were not able to pay the mortgage or rent on time? No [facility] Start: 03-26-2019 Gender identity Identifies as female gender (finding) [facility] Assertion Sexually active (finding) [facility] Assertion Gender identity finding (finding) [facility] Assertion Finding of sexua l orientation (finding) [facility] Tobacco smoking status Unknown i f ever smoked [facility] Work Phone: Start: 08-19-2015 Tobacco use and exposure Former smokeless tobacco user UB. End: 02-28-2009 History of tobacco use User of [employer] Start: 1950 Sex Assigned At Not on file B [place] NEGATED: Highlighted row Assertion Current drinker of alcohol (finding) [facility] NEGATED: Highlighted row Assertion Finding relating to drug misuse behavior (finding) [facility] NEGATED: Highlighted row Assertion Exposure to pollution (event) [facility] NEGATED: Highlighted row Assertion [facility] Mental Status Date Assessment Result Facility Cognitive function Oriented to t sandra, place, and person Oriented to person, time and place (finding) [facility] Work Phone: Clinical Notes 08-17-2018 to 05-20-2023 Telephone Encounter - Leida Meek PA-C - 05/20/2023 3:57 PM EDTTelephone Encounter -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 hyperlipidemia Paroxysmal atrial fibrillation (HCC) Atrial fibrillation Essential hypertension Unspecified essential hypertension Atherosclerotic peripheral vascular disease with intermittent claudication (HCC) Atherosclerosis of [place] arteries of the extremities with intermittent claudication CKD (chronic kidney disease) stage 4, GFR 15-29 ml/min (HCC) Chronic kidney disease, Stage IV (severe) [facility]* Diagnosis Benign hypertension with chronic kidney disease, stage III (HCC)- Primary 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 through stage IV, or unspecified Stage 3b chronic kidney disease (HCC) Hyperlipidemia, unspecified hyperlipidemia type [facility]* Diagnosis Carotid artery stenosis, asymptomatic, bilateral- Primary PVD (peripheral vascular disease) (HCC) Peripheral vascular disease, unspecified 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 [facility]* Diagnosis APPOINTMENT CANCELLED- Primary Pulsatile tinnitus, left ear [facility]* Diagnosis Essential hypertension Unspecified essential hypertension [facility]* Diagnosis Paroxysmal atrial fibrillation (HCC)- Primary Atrial fibrillation 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 [facility]* Diagnosis Encounter for screening mammogram for breast cancer [facility]* Diagnosis Right sided abdominal pain- Primary Abdominal pain, unspecified site Chest pain, unspecified type Right sided abdominal pain Abdominal pain, unspecified site Coronary artery disease involving [place] coronary artery of [place] heart without angina pectoris Mixed hyperlipidemia Essential hypertension Unspecified essential hypertension Acute deep vein thrombosis (DVT) of distal vein of right lower extremity (HCC) Essential hypertension Unspecified essential hypertension Coronary artery disease involving [place] coronary artery of [place] heart without angina pectoris documented in this encounter [facility] Diagnosis Medication management- Primary Encounter for long-term (current) use of other medications documented in this encounter [facility] CenterHistory of Present illness Narrative History of Present Illness not supported for this document type No History of Present Illness [facility] Work Phone: Patient problem outcome Narrative Includes: Evaluations & Outcomes for active Goals No Outcomes [facility] Work Phone: Reason for referral (narrative)* Outpatient Procedure (Routine) - Closed Specialty Diagnoses / Procedures Referred By Manuel preston Referred To Contact [facility] Diagnoses Paroxysmal atrial fibrillation (HCC) Procedures ECG COMPLETE ECG ROUTINE ECG W/LEAST 12 LDS W/I&R Rupesh Gu DO [address] [place] [address] [facility] [place] [id number] Referral ID Status Reason Start Date Expiration Date V isits Requested Visits Authorized [id number] Closed Auto-Generate d Referral 08/11/2021 08/11/2022 1 1 [facility] for referral (narrative)* Outpatient Procedure (Routine) - Authorized Specialty Diagnoses / Procedures Referred By Manuel preston Referred To Contact [facility] Diagnoses PVD (peripheral vascular disease) (HCC) Procedures PVR ANK PRESS [facility] NON-INVAS PHYSIOLOGIC STD EXTREMITY ART 2 LEVEL Renae German APRN.MACHINE TURNER [address] [place] [address] [facility] [address] [address] Referral ID Status Reason Start Date Expiration Date Visits Requested Visits Authorized [id number] Authorized Auto-Generat ed Referral 10/30/2021 10/30/2022 1 1 [facility] for referral (narrative)* Outpatient Procedure (Routine) - Pending Review Specialty Diagnoses / Procedures Referred By Contac t Referred To Contact [facility] Diagnoses Paroxysmal atrial fibrillation (HCC) History of ST elevation myocardial infarction (STEMI) PAF (paroxysmal atrial fibrillation) (HCC) Procedures ECG COMPLETE ECG ROUTINE ECG W/LEAST 12 LDS W/I&[place] [address] [place] [address] [facility] [place] [address] [place] [id number] Referral ID Status Reason Start Date Expiration Date Visits Requested Visits Authorized [id number] Pending Review Auto-Generat ed Referral 01/26/2023 1 1 [facility] for referral (narrative)* Diagnostic Procedure Only (Routine) - Pending Review Specialty Diagnoses / Procedures [facility] Diagnoses Encounter for screening mammogram for breast cancer Procedures ESTHER SCREENING SCREENING MAMMOGRAPHY BI 2-VIEW [place] [address] [place] [address] [facility] [address] [place] [phone] Referral ID Status Reason Start Date Expiration Date Visits Requested Visits Authorized [id number] Pending Review Auto-Generat ed Referral 03/03/2022 04/02/2023 1 1 [facility] for referral (narrative)* Outpatient Procedure (Routine) - Pending Review Specialty Diagnoses / Procedures [facility] Diagnoses Paroxysmal atrial fibrillation (HCC) Hypertension, unspecified type Atherosclerotic peripheral vascular disease with intermittent claudication (HCC) Procedures ECG COMPLETE ECG ROUTINE ECG W/LEAST 12 LDS W/I&[place] [address] [place] [address] [facility] [place] [address] [place] [id number] Referral ID Status Reason Start Date Expiration Date Visits Requested Visits Authorized [id number] Pending Review Auto-Generat ed Referral 07/28/2022 07/28/2023 1 1 [facility] for referral (narrative)* Outpatient Procedure (Routine) - Authorized Specialty Diagnoses / Procedures Referred By Contac t Referred To Contact [facility] Diagnoses PVD (peripheral vascular disease) (HCC) Aortoiliac occlusive disease (HCC) Carotid artery stenosis, asymptomatic, bilateral Procedures US ABD AORTA COMPLETE VAS LAB DUP-SCAN AORTA IVC ILIAC VASCL/BPGS COMPLETE Sergo Tucker MD [address] [place] [address] [address] Referral ID Status Reason Start Date Expiration Date Visits Requested Visits Authorized [id number] Authorized Auto-Generat ed Referral 11/15/2022 11/15/2023 1 1 * Outpatient Procedure (Routine) - Authorized Specialty Diagnoses / Procedures Referred By Contac t Referred To Contact [facility] Diagnoses PVD (peripheral vascular disease) (HCC) Aortoiliac occlusive disease (HCC) Carotid artery stenosis, asymptomatic, bilateral Procedures PVR ANK PRESS [facility] NON-INVAS PHYSIOLOGIC STD EXTREMITY ART 2 LEVEL Sergo Tucker MD [address] [place] [address] [address] Referral ID Status Reason Start Date Expiration Date Visits Requested Visits Authorized [id number] Authorized Auto-Generat ed Referral 11/15/2022 11/15/2023 1 1 * Outpatient Procedure (Routine) - Authorized Specialty Diagnoses / Procedures Referred By Contac t Referred To Contact [facility] Diagnoses PVD (peripheral vascular disease) (HCC) Aortoiliac occlusive disease (HCC) Carotid artery stenosis, asymptomatic, bilateral Procedures US CAROTID ARTERIES [facility] DUPLEX SCAN EXTRACRANIAL ART COMPL BI STUDY Sergo Tucker MD [address] [address] [facility] [address] [place] [id number] Referral ID Status Reason Start Date Expiration Date Visits Requested Visits Authorized [id number] Authorized Auto-Generat ed Referral 11/15/2022 11/15/2023 1 1 [facility] for referral (narrative)* Outpatient Procedure (Routine) - Pending Review Specialty Diagnoses / Procedures Referred By Contac t Referred To Contact [facility] Diagnoses Paroxysmal atrial fibrillation (HCC) Procedures ECG COMPLETE ECG ROUTINE ECG W/LEAST 12 LDS W/I&[place] [address] [place] [address] [address] Referral ID Status Reason Start Date Expiration Date Visits Requested Visits Authorized [id number] Pending Review Auto-Generat ed Referral 01/28/2023 01/28/2024 1 1 [facility] for referral (narrative)* Diagnostic Procedure Only (Routine) - Pending Review Specialty Diagnoses / Procedures Referred By Contac t Referred To Contact [facility] Diagnoses Encounter for screening mammogram for breast cancer Procedures ESTHER SCREENING SCREENING MAMMOGRAPHY BI 2-VIEW [place] [address] [place] [address] [address] [place] [phone] Referral ID Status Reason Start Date Expiration Date Visits Requested Visits Authorized [id number] Pending Review Auto-Generat ed Referral 02/02/2023 03/03/2024 1 1 [facility] for referral (narrative)No Reason for Referral Recorded [facility] Work Phone: Review of systems Narrative - Reported Review of Systems not supported for this document type No Review of Systems [facility] Work Phone: Summary Purpose Family History No Family History Records FoundNo Family History Records FoundNo Family History Records FoundNo Family History Records FoundNo Family History Records Found Includes: Family History in patient's chart No Family History RecordedNo Family History Records FoundNo Family History Records Found Advance Directives No Advanced Directives Records FoundDocuments on File Type Date Recorded 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 Advance Directive(s) 03/28/2019 10:10 AM Advance Directive(s) 07/20/2018 10:43 AM Advance Directive(s) 07/19/2018 7:10 AM Advance Directive(s) 07/14/2018 11:46 AM Advance Directive(s) 06/09/2017 12:41 PM Documents on File Type Date Recorded 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 anation Advance Directive(s) 03/28/2019 10:10 AM Advance Directive(s) 07/20/2018 10:43 AM Advance Directive(s) 07/19/2018 7:10 AM Advance Directive(s) 07/14/2018 11:46 AM Advance Directive(s) 06/09/2017 12:41 PM Documents on File Type Date Recorded 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 anation Advance Directive(s) 07/20/2018 10:43 AM Documents on File Type Date Recorded 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 anation Advance Directive(s) 07/20/2018 10:43 AM Latest Code Status on File Code Status Date Activated Date Inactivated Comments Full Code 05/17/2023 8:05 PM Code Status History Code Status Date Activated Date Inactivated Comments Full Code 08/19/2015 2:04 AM 08/23/2015 3:05 PM Reason for Referral Specialty Diagnoses / Procedures Referred By Manuel t Referred To Contact Diagnoses Tension-type headache, not intractable, unspecified chronicity pattern Tinnitus, unspecified laterality Procedures CONSULT TO HEADACHE CLINIC OFFICE/OUTPATIENT [facility] MDM 60-[place] [address] [place] [address] Referral ID Status Reason Start Date Expiration Date Visits Requested Visits Authorized [id number] Pending Review PCP Requested Referral 10/12/2021 10/12/2022 1 1 Specialty Diagnoses / Procedures Referred By Contac t Referred To Contact Ent - Otolaryngology Diagnoses Tension-type headache, not intractable, unspecified chronicity pattern Tinnitus, unspecified laterality Procedures CONSULT TO ENT OFFICE/OUTPATIENT NEW HIGH MDM 60-[place] [address] [place] [address] Referral ID Status Reason Start Date Expiration Date Visits Requested Visits Authorized [id number] Pending Review PCP Requested Referral 10/12/2021 10/12/2022 1 1 Specialty Diagnoses / Procedures Referred By Contac t Referred To Contact CT IMAGING Diagnoses Pulsatile tinnitus, left ear Lightheadedness Procedures CT TEMP BONES WO IVCON CT ORBIT SELLA/POST FOSSA/EAR W/O CONTRAST Macrina Cobian PA-C [address] [place] [address] Ct Imaging Referral ID Status Reason Start Date Expiration Date Visits Requested Visits Authorized [id number] Authorized Auto-Generat ed Referral 11/11/2021 12/11/2022 1 1 Physical Exam Physical Exam not supported for this document type No Physical Exam Recorded Additional Source Comments INFORMATION SOURCE (unrecogn ized section and content) DATE CREATED AUTHOR 08/24/2017 [facility] DATE CREATED AUTHOR AUTHOR'S ORGANIZ ATION 01/16/2022 [facility] DATE CREATED AUTHOR AUTHOR'S ORGANIZ ATION 02/26/2022 [facility] DATE CREATED AUTHOR AUTHOR'S ORGANIZ ATION 03/14/2023 [facility] DATE CREATED AUTHOR AUTHOR'S ORGANIZ ATION 05/17/2023 [facility] DATE CREATED AUTHOR AUTHOR'S ORGANIZ ATION 05/21/2023 [facility] DATE CREATED AUTHOR AUTHOR'S ORGANIZ ATION 05/23/2023 [facility] Source Comments (unrecognize d section and content) In the event this informatio n is protected by the Federal Confidentiality of Alcohol and Drug Abuse Patient Records regulations: The Federal rules restrict any use of the information to criminally investigate or prosecute any alcohol or drug abuse patient.[facility] Center[facility] the event this information is protected by the Federal Confidentiality of Alcohol and Drug Abuse Patient Records regulations: The Federal rules restrict any use of the information to criminally investigate or prosecute any alcohol or drug abuse patient.[facility] CenterIn the event this information is protected by the Federal Confidentiality of Alcohol and Drug Abuse Patient Records regulations: The Federal rules restrict any use of the information to criminally investigate or prosecute any alcohol or drug abuse patient.[facility] CenterIn the event this information is protected by the Federal Confidentiality of Alcohol and Drug Abuse Patient Records regulations: The Federal rules restrict any use of the information to criminally investigate or prosecute any alcohol or drug abuse patient.[facility] CenterIn the event this information is protected by the Federal Confidentiality of Alcohol and Drug Abuse Patient Records regulations: The Federal rules restrict any use of the information to criminally investigate or prosecute any alcohol or drug abuse patient.[facility] CenterIn the event this information is protected by the Federal Confidentiality of Alcohol and Drug Abuse Patient Records regulations: The Federal rules restrict any use of the information to criminally investigate or prosecute any alcohol or drug abuse patient.[facility] CenterIn the event this information is protected by the Federal Confidentiality of Alcohol and Drug Abuse Patient Records regulations: The Federal rules restrict any use of the information to criminally investigate or prosecute any alcohol or drug abuse patient.[facility] CenterIn the event this information is protected by the Federal Confidentiality of Alcohol and Drug Abuse Patient Records regulations: The Federal rules restrict any use of the information to criminally investigate or prosecute any alcohol or drug abuse patient.[facility] CenterIn the event this information is protected by the Federal Confidentiality of Alcohol and Drug Abuse Patient Records regulations: The Federal rules restrict any use of the information to criminally investigate or prosecute any alcohol or drug abuse patient.[facility] CenterIn the event this information is protected by the Federal Confidentiality of Alcohol and Drug Abuse Patient Records regulations: The Federal rules restrict any use of the information to criminally investigate or prosecute any alcohol or drug abuse patient.[facility] CenterIn the event this information is protected by the Federal Confidentiality of Alcohol and Drug Abuse Patient Records regulations: The Federal rules restrict any use of the information to criminally investigate or prosecute any alcohol or drug abuse patient.[facility] CenterIn the event this information is protected by the Federal Confidentiality of Alcohol and Drug Abuse Patient Records regulations: The Federal rules restrict any use of the information to criminally investigate or prosecute any alcohol or drug abuse patient.[facility] CenterIn the event this information is protected by the Federal Confidentiality of Alcohol and Drug Abuse Patient Records regulations: The Federal rules restrict any use of the information to criminally investigate or prosecute any alcohol or drug abuse patient.[facility] CenterIn the event this information is protected by the Federal Confidentiality of Alcohol and Drug Abuse Patient Records regulations: The Federal rules restrict any use of the information to criminally investigate or prosecute any alcohol or drug abuse patient.[facility] CenterIn the event this information is protected by the Federal Confidentiality of Alcohol and Drug Abuse Patient Records regulations: The Federal rules restrict any use of the information to criminally investigate or prosecute any alcohol or drug abuse patient.[facility] CenterIn the event this information is protected by the Federal Confidentiality of Alcohol and Drug Abuse Patient Records regulations: The Federal rules restrict any use of the information to criminally investigate or prosecute any alcohol or drug abuse patient.[facility] CenterIn the event this information is protected by the Federal Confidentiality of Alcohol and Drug Abuse Patient Records regulations: The Federal rules restrict any use of the information to criminally investigate or prosecute any alcohol or drug abuse patient.[facility] CenterIn the event this information is protected by the Federal Confidentiality of Alcohol and Drug Abuse Patient Records regulations: The Federal rules restrict any use of the information to criminally investigate or prosecute any alcohol or drug abuse patient.[facility] CenterIn the event this information is protected by the Federal Confidentiality of Alcohol and Drug Abuse Patient Records regulations: The Federal rules restrict any use of the information to criminally investigate or prosecute any alcohol or drug abuse patient.[facility] CenterIn the event this information is protected by the Federal Confidentiality of Alcohol and Drug Abuse Patient Records regulations: The Federal rules restrict any use of the information to criminally investigate or prosecute any alcohol or drug abuse patient.[facility] CenterIn the event this information is protected by the Federal Confidentiality of Alcohol and Drug Abuse Patient Records regulations: The Federal rules restrict any use of the information to criminally investigate or prosecute any alcohol or drug abuse patient.[facility] CenterIn the event this information is protected by the Federal Confidentiality of Alcohol and Drug Abuse Patient Records regulations: The Federal rules restrict any use of the information to criminally investigate or prosecute any alcohol or drug abuse patient.[facility] CenterIn the event this information is protected by the Federal Confidentiality of Alcohol and Drug Abuse Patient Records regulations: The Federal rules restrict any use of the information to criminally investigate or prosecute any alcohol or drug abuse patient.[facility] CenterIn the event this information is protected by the Federal Confidentiality of Alcohol and Drug Abuse Patient Records regulations: The Federal rules restrict any use of the information to criminally investigate or prosecute any alcohol or drug abuse patient.[facility] CenterIn the event this information is protected by the Federal Confidentiality of Alcohol and Drug Abuse Patient Records regulations: The Federal rules restrict any use of the information to criminally investigate or prosecute any alcohol or drug abuse patient.[facility] CenterIn the event this information is protected by the Federal Confidentiality of Alcohol and Drug Abuse Patient Records regulations: The Federal rules restrict any use of the information to criminally investigate or prosecute any alcohol or drug abuse patient.[facility] CenterIn the event this information is protected by the Federal Confidentiality of Alcohol and Drug Abuse Patient Records regulations: The Federal rules restrict any use of the information to criminally investigate or prosecute any alcohol or drug abuse patient.[facility] Reason for Visit (unrecogniz ed [...] HIGH MDM 60-[place] [address] [place] [address] Referral ID Status Reason Start Date Expiration Date Visits Requested Visits Authorized [id number] Pending Review PCP Requested Referral 10/12/2021 10/12/2022 1 1 Reason Comments Follow Up Virtual Reason Comments Follow Up Reason Onset Date Comments Population Health Navigation Outreach 12/17/2021 Spouse of [facility] outreach pt Reason Comments F/U 6 Month Reason Onset Date Comments Refill Request 05/26/2022 Reason Comments Follow Up Reason Comments CPE (Medicare) Reason Comments Established Patient Follow Up Reason Onset Date Comments Population Health Navigation Outreach 03/31/2023 [place] [facility] Outreach Reason Comments Chest Pain Sharp stabbing right sided chest pains starting 0300. Took 2 325mg asa when pain started. 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 Given 3 baby asa in office at 1122 and was given one nitro at 1129 with some improvement. Denies any n/v, slightly sob. Specialty Diagnoses / Procedures Referred By Manuel preston Referred To Contact Diagnoses Right sided abdominal pain Luis Estrella MD [address] [place] [address], [place] [address] [facility] [address] [place] [address] Referral ID Status Reason Start Date Expiration Date Visits Re quested Visits Authorized [id number] 1 1 Reason Comments ER/Urgent Referral Care Teams (unrecognized sec tion and content) Shake Sawyer Relationship Specialty Start Date End Date Kayla Monterroso [place] [id number] [place] [address] PCP - General Internal Medicine 01/30/19 Janey Patricia DO [address] [place] [address] Primary Staff Physician Nephrology 03/26/21 Shake Sawyer Relationship Specialty Start Date End Date Kayla Monterroso MD [address] [place] [address] PCP - General Internal Medicine 01/30/19 Janey Patricia DO [address] [place] [address] Primary Staff Physician Nephrology 03/26/21 Shake Sawyer Relationship Specialty Start Date End Date Kayla Monterroso MD [address] [place] [address] PCP - General Internal Medicine 01/30/19 Janey Patricia DO [address] [place] [address] Primary Staff Physician Nephrology 03/26/21 Shake Sawyer Relationship Specialty Start Date End Date Kayla Monterroso MD [address] [place] [address] PCP - General Internal Medicine 01/30/19 Janey Patricia DO [address] [place] [address] Primary Staff Physician Nephrology 03/26/21 Shake Sawyer Relationship Specialty Start Date End Date Kayla Monterroso MD [address] [place] [address] PCP - General Internal Medicine 01/30/19 Janey Patricia, [address] [place] [address] Primary Staff Physician Nephrology 03/26/21 Shake Sawyer Relationship Specialty Start [place] [address] [place] [address] PCP - General Internal Medicine 01/30/19 Janey Patricia, [address] [place] [address] Primary Staff Physician Nephrology 03/26/21 Shake Sawyer Relationship Specialty Start Date End Date Kayla Monterroso [place] [id number] [place] [address] PCP - General Internal Medicine 01/30/19 Janey Patricia DO [address] [place] [address] Primary Staff Physician Nephrology 03/26/21 Shake Sawyer Relationship Specialty Start Date End Date Kayla Monterroso MD [id number] [place] [address] PCP - General Internal Medicine 01/30/19 Janey Patricia, [address] [place] [address] Primary Staff Physician Nephrology 03/26/21 Shake Sawyer Relationship Specialty Start Date End Date Kayla Monterroso MD [id number] [place] [address] PCP - General Internal Medicine 01/30/19 Janey Patricia DO [address] [place] [address] Primary Staff Physician Nephrology 03/26/21 Shake Sawyer Relationship Specialty Start [place] [address] [place] [address] PCP - General Internal Medicine 01/30/19 Janey Patricia DO [address] [place] [address] Primary Staff Physician Nephrology 03/26/21 Shake Sawyer Relationship Specialty Start Date End Date Kayla Monterroso MD [id number] [place] [address] PCP - General Internal Medicine 01/30/19 Janey Patricia DO [address] [place] [address] Primary Staff Physician Nephrology 03/26/21 Shake Sawyer Relationship Specialty Start Date End Date Kayla Monterroso MD [address] [place] [address] PCP - General Internal Medicine 01/30/19 Janey Patricia DO [address] [place] [address] Primary Staff Physician Nephrology 03/26/21 Shake Sawyer Relationship Specialty Start Date End Date Kayla Monterroso MD [address] [place] [address] PCP - General Internal Medicine 01/30/19 Janey Patricia DO [address] [place] [address] Primary Staff Physician Nephrology 03/26/21 Shake Sawyer Relationship Specialty Start Date End Date Kayla Monterroso MD [address] [place] [address] PCP - General Internal Medicine 01/30/19 Janey Patricia DO [address] [place] [address] Primary Staff Physician Nephrology 03/26/21 Shake Sawyer Relationship Specialty Start [place] [address] [place] [address] PCP - General Internal Medicine 01/30/19 Janey Patricia DO [address] [place] [address] Primary Staff Physician Nephrology 03/26/21 Shake Sawyer Relationship Specialty Start [place] [address] [place] [address] PCP - General Internal Medicine 01/30/19 Janey Patricia DO [address] [place] [address] Primary Staff Physician Nephrology 03/26/21 Shake Sawyer Relationship Specialty Start [place] [address] [place] [address] PCP - General Internal Medicine 01/30/19 Janey Patricia DO [address] [place] [address] Primary Staff Physician Nephrology 03/26/21 Shake Sawyer Relationship Specialty Start [place] [address] [place] [address] PCP - General Internal Medicine 01/30/19 Janey Patricia DO [address] [place] [address] Primary Staff Physician Nephrology 03/26/21 Shake Sawyer Relationship Specialty Start [place] [address] [place] [address] PCP - General Internal Medicine 01/30/19 Janey Patricia DO [address] [place] [address] Primary Staff Physician Nephrology 03/26/21 Shake Sawyer Relationship Specialty Start [place] [address] [place] [address] PCP - General Internal Medicine 01/30/19 Janey Patricia DO [address] [place] [address] Primary Staff Physician Nephrology 03/26/21 Shake Sawyer Relationship Specialty Start [place] [address] [place] [address] PCP - General Internal Medicine 01/30/19 Janey Patricia DO [address] [place] [address] Primary Staff Physician Nephrology 03/26/21 Shake Sawyer Relationship Specialty Start [place] [address] [place] [address] PCP - General Internal Medicine 05/18/23 Ordered [...] dose on Tue05/19/23 at 0900, Until Discontinued 818 (Given - Provider: Denisse Thompson, RAY) carvedilol (COREG) tablet 12.5 mg 12.5 mg, Oral, 2 TIMES DAILY, First dose on Tue05/17/23 at 2100, Until Discontinued, Administer with food to minimize the risk of orthostatic hypotension 2157 (Given - Provider: Alissa Resendiz RN) 1328 (Given - Provider: Yesy Ruano, RAY)2112 (Given - Provider: Surekha Brown, RAY) 818 (Given - Provider: Denisse Thompson, RAY)2099 (Due) doxazosin (CARDURA) tablet 2 mg 2 mg, Oral, NIGHTLY, First dose on Tue05/17/23 at 2100, Until Discontinued 2157 (Given - Provider: Alisas Resendiz RN) 2112 (Given - Provider: Surekha Brown RN) 2099 (Due) enoxaparin (LOVENOX) injection 40 mg 40 mg, SubCUTAneous, DAILY, First dose on Tue05/17/23 at 2030, Until Discontinued, Indication of Use: Prophylaxis-DVT/PE 2158 (Given - Provider: Alissa Resendiz RN) 1326 (Given - Provider: Yesy Ruano, RAY) 821 (Not Given - Provider: Denisse Thompson, RAY - Reason: Patient/family refused) fentaNYL (SUBLIMAZE) injection [...] dose on Tue05/17/23 at 1930, Until Discontinued 1924 (Given - Provider: Ashli Rodrigues RN) 1328 (Given - Provider: Yesy Ruano RN)1340 (Not Given - Provider: Yesy Ruano RN - Reason: Other - Comment: just gave morning dose)2113 (Given - Provider: Surekha Brown RN) 0819 (Given - Provider: Denisse Thompson, RAY)1400 (Due)2100 (Due) HYDROmorphone HCl PF (DILAUDID) injection 1 mg (COMPLETED) 1 mg, IntraVENous, ONCE, 1 dose, On Tue05/17/23 at 1615 1607 (Given - Provider: Ashli Rodrigues RN) metoprolol (LOPRESSOR) injection 5 mg (COMPLETED) 5 mg, IntraVENous, ONCE, 1 dose, On Tue05/18/23 at 1700 1709 (Given - Provider: Amada Laboy RN) morphine injection 4 mg (COMPLETED) 4 mg, IntraVENous, ONCE, 1 dose, On Tue05/17/23 at 1445 1450 (Given - Provider: Ashli Rodrigues RN) naproxen (NAPROSYN) tablet 250 mg 250 mg, Oral, 2 TIMES DAILY WITH MEALS, 20 doses, First dose on [place] 05/19/23 at 0800, Last dose on 05/28/23 at 1700 0819 (Given - Provider: Denisse Thompson RN)1700 (Due) pantoprazole (PROTONIX) 40 mg in sodium [...] 2 minutes. 1328 (Given - Provider: Yesy Ruano RN) 0818 (Given - Provider: Denisse Thompson, RAY) rosuvastatin (CRESTOR) tablet 20 mg 20 mg, Oral, DAILY, First dose on Tue05/17/23 at 2030, Until Discontinued 2027 (Not Given - Provider: Alissa Resendiz RN - Reason: Patient took at home) 1329 (Given - Provider: Yesy Ruano RN) 0822 (Not Given - Provider: Denisse Thompson RN - Reason: Patient/family refused) sodium chloride 0.9 % bolus 500 mL (COMPLETED) 500 mL (8.29 mL/kg), IntraVENous, at 500 mL/hr, Administer over 1 Hours, ONCE, On Tue05/17/23 at 1230, For 1 dose 1251 (New Bag - Provider: Ashli Rodrigues RN)1355 (Stopped - Provider: Ashli Rodrigues RN) sodium [...] 20 mL/lumen 2201 (Given - Provider: Alissa Resendiz RN) 1339 (Given - Provider: Yesy Ruano, RAY)2113 (Not Given - Provider: Surekha Brown RN [...] ml/hr (1mg/min) x 6hrs. Use in-line filter. 1853 (New Bag - Provider: Surekha Brown RN)2014 (Stopped - Provider: Denisse Thompson, RAY - Comment: stopped by other) amiodarone (CORDARONE) 450 mg in dextrose 5% 250 mL infusion (CANCELED)(Linked Group 1) 0.5 mg/min (16.6667 mL/hr, rounded to 16.7 mL/hr), IntraVENous, CONTINUOUS, Starting on Tue05/18/23 at 2030, Until Tue05/19/23 at 0422, 16.7 ml/hr (0.5mg/min) Use in-line [...] interruptions/ long duration, Starting on Tue05/17/23 at 2004, For piggyback infusion, administer at same rate [...] or less into rate field of order. 1853 (New Bag - Provider: Surekha Brown RN) acetaminophen (TYLENOL) suppository 650 mg(Linked Group 2) 650 mg, Rectal, EVERY 6 HOURS PRN, Starting on Tue05/17/23 at 2003, Until Discontinued, Pain Mild (1-3), Fever, For temp greater than 100.4 F (38 C), Administer if oral route cannot be used. 2346 (See Alternative - Provider: Surekha Brown RN) [...] specifically ordered. 2230 (Given - Provider: Alissa Resendiz RN) 0542 (Given - Provider: Alissa Resendiz RN)1335 (Given - Provider: Yesy Ruano RN) [...] Until Tue05/19/23 at 0733, Pain Severe (7-10) 1906 (Given [...] 2003, Until Discontinued, at 100 mL/hr, Potassium Replacement, [...] cabinet override 1328 (Given - Provider: Yesy Ruano RAY) sterile water injection (COMPLETED) 1 dose, Starting [...] on Tue05/18/23 at 1830, Until Tue05/18/23 at 2015
33.3 ml/hr (1mg/min) x 6hrs. Use in-line filter.
Followed by amiodarone (CORDARONE) 450 mg in dextrose 5% 250 mL infusion (CANCELED)Jump to med 0.5 mg/min (16.6667 mL/hr, rounded to 16.7 mL/hr), IntraVENous, CONTINUOUS, Starting on Tue05/18/23 at 2030, Until Tue05/19/23 at 0422
16.7 ml/hr (0.5mg/min) Use in-line [...] 2004, Until Discontinued, at 100 mL/hr, Potassium Replacement
[...] BE BASED ON THE PRIMARY CLINICAL RECORDS. [facility] [email or web address] [facility]. provides no warranty or guarantee of the accuracy or completeness of information in this document.
--- NOTE | 2023-05-26 02:06 | XR_ITS ---
The [address] [address] Patient Name: NEELAM VIRAMONTES MRN: [id number] date: 1950 Sex: F Assigned Patient Location: ER Current Patient Location: ER Accession/Order Number: [id number] Exam Date: 05/26/2023 02:14 Report Date: 05/26/2023 02:50 At the request of: FREDDY MARKER Procedure: XR chest 1V EXAM: XR chest 1V HISTORY: CP COMPARISON: Chest radiograph dated 05/20/2023. TECHNIQUE: One view of the chest was obtained. FINDINGS: The cardiac silhouette is enlarged though stable in size. A calcified granuloma is seen in the mid left lung. There is no significant pneumothorax or pleural effusion. There are mild bibasilar opacities. No acute osseous abnormality is seen. XR/XR chest 1V IMPRESSION: 1. Stable enlarged cardiac silhouette with suspected bibasilar atelectasis. Electronically authenticated by: Lynsey KABA Date: 05/26/2023 02:50
[2023-05-26 02:16] LABS: Basophils Percent Auto 0.5 % (0.2-2.0); Eosinophils Absolute Auto 0.5 10^3/uL (0.0-0.7); Eosinophils Percent Auto 5.9 % (0.9-7.0); Hematocrit 27.4 % (36.0-48.0); Hemoglobin 8.7 g/dL (12.0-16.0); Immature Granulocytes Abs Auto 0.03 10^3/uL (0.00-0.03); Immature Granulocytes Pct Auto 0.4 % (0.0-0.5); Lymphocytes Percent Auto 12.4 % (20.5-60.0); Mean Corpuscular HGB Conc 31.8 g/dL (29.9-35.2); Mean Corpuscular Hemoglobin 30.3 pg (26.7-34.0); Mean Corpuscular Volume 95.5 fL (81.0-99.0); Mean Platelet Volume 9.8 fL (9.5-13.5); Monocytes Absolute Auto 0.8 10^3/uL (0.3-0.8); Monocytes Percent Auto 9.6 % (1.7-12.0); Neutrophils Absolute Auto 5.8 10^3/uL (1.4-6.5); Neutrophils Percent Auto 71.2 % (43.0-75.0); Platelet Count 262 10^3/uL (150-450); Red Blood Count 2.87 10^6/uL (4.20-5.40); White Blood Count 8.2 10^3/uL (4.0-11.0)
[2023-05-26] MEDS: 0.9 % SODIUM CHLORIDE 1,000 ML 500 ML IV (02:23)
[2023-05-26] MEDS: DILTIAZEM HCL 25 MG/5 ML VIAL 10 MG IV (02:23)
[2023-05-26] MEDS: ASPIRIN 81 MG TAB.CHEW 324 MG PO (02:23)
--- NOTE | 2023-05-26 02:25 | ED_ITS ---
HPI - Chest Pain General Chief Complaint: Chest Pain Stated Complaint: Tachycardia Time Seen by Provider: 05/26/23 01:50 Source: patient and family Mode of arrival: Wheelchair Limitations: no limitations History of Present Illness HPI narrative: This 73-year-old female with a history of paroxysmal atrial fibrillation who was recently admitted here for several days and converted on Cardizem and sees a wall washer at [facility] is brought to the emergency department by her for evaluation of left-sided chest pain and atrial fibrillation. The patient states the symptoms started tonight while at sleep. She has an appointment with her wall washer tomorrow. She was recently admitted to this facility and started on Eliquis. She had a normal thyroid-stimulating hormone, normal troponins and was discharged home. She states tonight she woke up and her heart felt out of rhythm and she had left-sided chest pain. Her pain is worse with palpation and movement. She denies any shortness of breath. She does not smoke. She has not had any nausea or vomiting. She denies a fever. Allegedly her gave her an extra dose of amiodarone in attempt to convert the atrial fibrillation. explained to me that when she was admitted recently with pain in her chest the only medication that helped her pain was Dilaudid. I explained to him that this was not safe in my opinion that she would not be receiving any IV Dilaudid from this practitioner. Related Data Home Medications ?Medication ?Instructions ?Recorded ?Confirmed doxazosin 2 mg tablet 2 mg PO BID 04/26/23 05/26/23 hydralazine 50 mg tablet 50 mg PO Q8H 04/26/23 05/26/23 rosuvastatin 20 mg tablet 20 mg PO .QHS 04/26/23 05/26/23 pantoprazole 40 mg tablet,delayed 40 mg PO DAILY 05/20/23 05/26/23 release naproxen 250 mg tablet 250 mg PO Q12H 05/26/23 05/26/23 Previous Rx's ?Medication ?Instructions ?Recorded amiodarone 200 mg tablet (Pacerone) 200 mg PO DAILY 30 days #30 tabs 05/22/23 apixaban 5 mg tablet (Eliquis) 2.5 mg (1/2 x 5 mg) PO BID 30 days 05/22/23 #30 tabs carvedilol 6.25 mg tablet 6.25 mg PO Q12H 30 days #60 tabs 05/22/23 Allergies Allergy/AdvReac Type Severity Reaction Status Date / Time No Known Drug Allergies Allergy Verified 04/26/23 00:08 Review of Systems ROS Status of ROS 10 or more systems reviewed and unremark able except as noted in history and below [facility] Medical History (Updated 05/26/23 @ 04:57 by Freddy Ortez MD) CAD (coronary artery disease), [place] coronary artery ?I25.10 - Atherosclerotic heart disease of [place] coronary artery without angina pectoris (ICD-10) GERD (gastroesophageal reflux disease) ?K21.9 - Gastro-esophageal reflux disease without esophagitis (ICD-10) Hypertension ?I10 - Essential (primary) hypertension (ICD-10) 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 - Unspecified atherosclerosis of [place] arteries of extremities, uns pecified extremity (ICD-10) History of heart attack ?I25.2 - Old myocardial infarction (ICD-10) Abnormal colonoscopy ?R93.3 - Abnormal findings on diagnostic imaging of other parts of digestive tract (ICD-10) Colon polyp ?K63.5 - Polyp of colon (ICD-10) Surgical History H/O tubal ligation ?Z98.51 - Tubal ligation status (ICD-10) Hx of tonsillectomy ?Z90.89 - Acquired absence of other organs (ICD-10) Social History Within the past year, how often did you have a drink containing alcohol: never Score interpretation: A score less than 3 is consistent with normal alcohol consumption. Smoking status: Former smoker Non-prescribed substance use: denies use Previous occupational history: retired Highest level of school completed/degree received: 11th grade Exam Narrative Exam Narrative: Nurses note and vital signs reviewed and patient is not hypoxic. She is tachycardic with a pulse of 106 and mildly hypoxic with pulse ox of 94 percent on room air General: Nontoxic, alert female, no respiratory distress, she is clutching the left side of her chest with movement and requires assistance to sit up to pain in the left side of her chest. Skin: Warm, dry, no pallor noted. There is no rash noted. Head: Normocephalic, atraumatic Eye: Normal conjunctiva, no drainage, EOMI. PERRL Ears, Nose, Mouth, and Throat: oral mucosa is moist. Cardiovascular: Irregular rate and rhythm with pulse in the low 100s, no murmurs, rubs or gallops appreciated Respiratory: Patient is in no distress, no accessory muscle use, lungs are clear to auscultation, no wheezing, rales or rhonchi, tenderness to palpation of left chest wall and with movement of torso Back: non-tender, no CVA tenderness bilaterally to percussion. GI: Normal bowel sounds, no tenderness to palpation, no masses appreciated. No rebound, guarding, or rigidity noted. Musculoskeletal: The patient has no evidence of calf tenderness, no pitting edema, symmetrical pulses noted bilaterally Neurological: A&O x4, normal speech Psychiatric: Cooperative Constitutional Vital Signs, click to edit/add: Last Vital Signs Temp 98.1 F 05/26/23 01:45 Pulse 83 05/26/23 03:32 Resp 24 05/26/23 03:32 BP 115/67 05/26/23 03:32 Pulse Ox 95 05/26/23 03:32 O2 Del Method Room Air 05/26/23 03:32 Course Vital Signs Vital signs: Vital Signs Temperature 98.1 F 05/26/23 01:45 Pulse Rate 106 H 05/26/23 01:45 Respiratory Rate 24 05/26/23 01:45 Blood Pressure 147/82 H 05/26/23 01:45 Pulse Oximetry 94 L 05/26/23 01:45 Oxygen Delivery Method Room Air 05/26/23 01:45 Temperature 98.1 F 05/26/23 01:45 Pulse Rate 83 05/26/23 03:32 Respiratory Rate 24 05/26/23 03:32 Blood Pressure 115/67 05/26/23 03:32 Pulse Oximetry 95 05/26/23 03:32 Oxygen Delivery Method Room Air 05/26/23 03:32 MDM - Chest Pain MDM Narrative Medical decision making narrative: This 73-year-old female with a history of paroxysmal nature fibrillation who was admitted here last week and started on Eliquis presents for evaluation of recurrent atrial fibrillation. She states that she was asleep and woke up and felt that her heart was out of rhythm is having left-sided chest pain. She was recently started on Eliquis after being admitted and being placed on a cardizem drip. She converted at that time and apparently was back in atrial fibrillation that was rate controlled before being discharged. She complains of left-sided chest pain was tender in the left anterior chest without crepitus or skin rash. Her explained to me that the only pain medication that would work for her was Dilaudid. I explained to him that this was unacceptable and she would not be receiving Dilaudid for chest pain. She was given 324 mg baby aspirin, EKG was atrial fibrillation at 98 beats for minute. She was intermittently tachycardic into the low 100s. She was given a 10 mg IV dose of Cardizem with minimal change in her atrial fibrillation and then placed on a Cardizem drip. Cardizem drip was started at 5 mg and increased to 7.5. This did slow down her rate but she did not convert. Routine labs are reviewed. She has a normal white count and hemoglobin is moderately low but stable for her. She has a baseline elevated creatinine. This is also stable. Troponin is normal. BNP is elevated but not at the same extent that it was elevated during her recent admission. The patient does have an appointment with her wall washer at [facility] later today. I watched her in the emergency department for several hours hoping that she would convert and I could discharge her so that she could follow up with her wall washer however she did not convert and her did not feel comfortable taking her home. She was admitted to the ICU after I discussed the case with the hospitalist. I agreed to give her 1 dose of an oral narcotic pain medication prior to her admission. Medical Records Data Medical records narrative: [place] [address] XRay Report Signed Patient: NEELAM VIRAMONTES MR#: [id number] : 1950 Acct:[id number] Age/Sex: 73 / F ADM Date: 05/26/23 Loc: ER Attending Dr: Ordering Physician: Freddy Ortez Date of Service: 05/26/23 Procedure(s): XR chest 1V Accession Number(s): [id number] cc: Freddy Ortez; Physician,Non-Staff M.D.~ The [place] [id number] Patient Name: NEELAM VIRAMONTES MRN: [facility]:[id number] date: 1950 Sex: F Assigned Patient Location: ER Current Patient Location: ER Accession/Order Number: [id number] Exam Date: 05/26/2023 02:14 Report Date: 05/26/2023 02:50 At the request of: FREDDY MARKER Procedure: XR chest 1V EXAM: XR chest 1V HISTORY: CP COMPARISON: Chest radiograph dated 05/20/2023. TECHNIQUE: One view of the chest was obtained. FINDINGS: The cardiac silhouette is enlarged though stable in size. A calcified granuloma is seen in the mid left lung. There is no significant pneumothorax or pleural effusion. There are mild bibasilar opacities. No acute osseous abnormality is seen. XR/XR chest 1V IMPRESSION: 1. Stable enlarged cardiac silhouette with suspected bibasilar atelectasis. Lab Data Labs: Lab Results 05/26/23 Range/Units 02:02 WBC 8.2 (4.0-11.0) 10^3/uL RBC 2.87 L (4.20-5.40) 10^6/uL Hgb 8.7 L (12.0-16.0) g/dL Hct 27.4 L (36.0-48.0) % MCV 95.5 (81.0-99.0) fL MCH 30.3 (26.7-34.0) pg MCHC 31.8 (29.9-35.2) g/dL RDW 14.0 (11.0-15.0) % Plt Count 262 (150-450) 10^3/uL MPV 9.8 (9.5-13.5) fL Neut % (Auto) 71.2 (43.0-75.0) % Lymph % (Auto) 12.4 L (20.5-60.0) % [place] % (Auto) 9.6 (1.7-12.0) % Eos % (Auto) 5.9 (0.9-7.0) % Baso % (Auto) 0.5 (0.2-2.0) % Neut # (Auto) 5.8 (1.4-6.5) 10^3/uL Lymph # (Auto) 1.0 L (1.2-3.8) 10^3/uL [place] # (Auto) 0.8 (0.3-0.8) 10^3/uL Eos # (Auto) 0.5 (0.0-0.7) 10^3/uL Baso # (Auto) 0.0 (0.0-0.1) 10^3/uL Abs Immat Gran (auto) 0.03 (0.00-0.03) 10^3/uL Imm/Tot Granulo (auto) 0.4 (0.0-0.5) % Sodium 140 (136-145) mmol/L Potassium 4.2 (3.5-5.1) mmol/L Chloride 107 (98-107) mmol/L Carbon Dioxide 22.0 (21.0-32.0) mmol/L Anion Gap 15.2 BUN 48.0 H (7.0-18.0) mg/dL Creatinine 1.64 H (0.55-1.02) mg/dL Est GFR ( Amer) 37 L (>=60) Est GFR (Non-Af Amer) 31 L (>=60) BUN/Creatinine Ratio 29.3 Glucose 107 H (74-106) mg/dL Calcium 8.6 (8.5-10.1) mg/dL Total Bilirubin 0.5 (0.2-1.0) mg/dL AST 21 (15-37) U/L ALT 24 (14-59) U/L Alkaline Phosphatase 125 H (46-116) U/L Troponin I High Sens 24.8 (4.0-51.3) pg/mL NT-Pro-B Natriuret Pep 5620.0 H* (<=900.0) pg/mL Total Protein 6.0 L (6.4-8.2) g/dL Albumin 2.2 L (3.4-5.0) g/dL Globulin 3.8 g/dL Albumin/Globulin Ratio 0.6 ECG Data Attestation: I personally reviewed and interpreted this ECG as follows: (Atrial fibrillation at 98 beats for minute, normal axis, nonspecific ST changes, no acute ST segment elevation or T-wave inversion) Heart Score History: Slightly/Non-Suspicious ECG: Normal Age: >65 years Risk Factors: 1 or 2 Risk Factors Troponin: <Normal Limit Total Heart Score Recommendations & Risks:: 3 Critical Care Time Critical Care Time Total Critical Care Time: 35 Discharge Plan Discharge Chief Complaint: Chest Pain Clinical Impression: Atrial fibrillation, Chest pain
[2023-05-26 02:35] LABS: Alanine Aminotransferase 24 U/L (14-59); Albumin Globulin Ratio 0.6; Albumin Level 2.2 g/dL (3.4-5.0); Alkaline Phosphatase 125 U/L (46-116); Anion Gap 15.2; Aspartate Amino Transferase 21 U/L (15-37); BUN Creatinine Ratio 29.3; Bilirubin Total 0.5 mg/dL (0.2-1.0); Calcium 8.6 mg/dL (8.5-10.1); Chloride 107 mmol/L (98-107); Estimated GFR (African America 37 (>=60); Estimated GFR (Non-African Ame 31 (>=60); Globulin 3.8 g/dL; Glucose 107 mg/dL (74-106); Potassium 4.2 mmol/L (3.5-5.1); Sodium 140 mmol/L (136-145)
[2023-05-26 02:41] LABS: Troponin I High Sensitivity 24.8 pg/mL (4.0-51.3)
[2023-05-26] MEDS: dilTIAZem HCL 125 MG in 0.9 % SODIUM CHLORIDE 100 ML IV (03:29)
[2023-05-26] MEDS: HYDROCODONE/ACET 5-325 MG TABLET 1 TAB PO ×3 (04:03→21:45)
[2023-05-26] MEDS: ONDANSETRON PF 4 MG/2 ML VIAL IV (04:03)
--- OUTSIDE RECORDS SUMMARY | 2023-05-26 04:50 | XMS_ITS | CCD ---
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 35 - 104 U/L [facility] ALT [Catalytic activity/Vol] 5 U/L 5 - 33 U/L [facility] Anion gap [Moles/Vol] 8 mmol/L Low 9 - 17 mmol/L [facility] AST [Catalytic activity/Vol] 12 U/L NINF - 32 U/L [facility] Bilirubin [Mass/Vol] 0.5 mg/dL 0.3 - 1.2 mg/dL [facility] Calcium [Mass/Vol] 7.8 mg/dL Low 8.6 - 10. 4 mg/dL [facility] Chloride [Moles/Vol] 101 mmol/L 98 - 107 mmol/L [facility] CO2 [Moles/Vol] 23 mmol/L 20 - 31 mmol/L [facility] Creatinine [Mass/Vol] 1.4 mg/dL High 0.5 - 0.9 mg/dL [facility] GFR/1.73 sq M.predicted MDRD (S/P/Bld) [Vol rate/Area] 40 mL/min/{1.73_m2} Low - PINF [facility] Comment on above: These results are not [...] [Mass/Vol] 97 mg/dL 70 - 99 mg/dL [facility] Potassium [Moles/Vol] 3.9 mmol/L 3.7 - 5.3 mmol/L [facility] Protein [Mass/Vol] 5.4 g/dL Low 6.4 - 8.3 g/dL [facility] Sodium [Moles/Vol] 132 mmol/L Low 135 - 144 mmol/L [facility] Urea nitrogen [Mass/Vol] 27 mg/dL High 8 - 23 mg/dL [facility] Urea nitrogen/Creatinin e [Mass ratio] 19 mg/mg 9 - 20 [facility] Cult,Urineon 05-19-2023 Cult,Urine Specimen Description .CLEAN CATCH URINE Culture NO GROWTH Report Status FINAL 05/19/2023 Normal [facility] Comment on above: Performed By: #### U RC #### [facility] [employer] [address] [place] [address] Commodities Trader: Jere Mas MD [facility] [address] [place] [address] Commodities Trader: Daniella Lott MD EKG 12 Leadon 05-19-2023 Atrial Rate 104 BPM [facility] Q-T Interval 310 ms [facility] QRS Duration 80 ms [facility] QTc Calculation (Bazett) 466 ms [facility] R Haywood 14 degrees [facility] T Haywood -3 degrees [facility] Ventricular Rate 136 BPM [facility] Atrial fibrillation with rapid ventricular response Abnormal ECG When compared with ECG of 17-MAY-2023 16:19, Atrial fibrillation has replaced Sinus rhythm Vent. rate has increased BY 61 BPM Nonspecific T wave abnormality, worse in Inferior leads Confirmed by LAVERNE SILVESTRE ([id number]) on 05/19/2023 12:43:09 AM [facility] RADIOLOGY Laverne Silvestre MD - 05/19/2023 Atrial fibrillation with rapid ventricular response Abnormal ECG When compared with ECG of 17-MAY-2023 16:19, Atrial fibrillation has replaced Sinus rhythm Vent. rate has increased BY 61 BPM Nonspecific T wave abnormality, worse in Inferior leads Confirmed by LAVERNE SILVESTRE ([id number]) on 05/19/2023 12:43:09 AM [facility] Atrial Rate 73 BPM [facility] P Haywood 61 degrees [facility] P-R Interval 144 ms [facility] Q-T Interval 372 ms [facility] QRS Duration 86 ms [facility] QTc Calculation (Bazett) 409 ms [facility] R Haywood 42 degrees [facility] T Haywood 35 degrees [facility] Ventricular Rate 73 BPM [facility] Normal sinus rhythm Normal ECG When compared with ECG of 18-MAY-2023 15:47, (unconfirmed) Sinus rhythm has replaced Atrial fibrillation Vent. rate has decreased BY 63 BPM Nonspecific T wave abnormality, improved in Inferior leads Confirmed by LAVERNE SILVESTRE ([id number]) on 05/19/2023 12:38:02 AM [facility] RADIOLOGY Laverne Silvestre MD - 05/19/2023 Normal sinus rhythm Normal ECG When compared with ECG of 18-MAY-2023 15:47, (unconfirmed) Sinus rhythm has replaced Atrial fibrillation Vent. rate has decreased BY 63 BPM Nonspecific T wave abnormality, improved in Inferior leads Confirmed by LAVERNE SILVESTRE ([id number]) on 05/19/2023 12:38:02 AM [facility] EKG Rhythm Stripon [facility] Hemoglobin A1Con 05-19-2023 Glucose [Mass/Vol] 88 mg/dL Normal [facility] Comment on above: Result Comment: The ADA and AACC recommend providing the estimated average glucose result to permit better patient understanding of their HBA1c result. Performed By: #### T BK #### [facility] [address] [place] [address] Commodities Trader: Daniella Lott MD HbA1c (Bld) [Mass fraction] 4.7 % Normal 4.0-6.0 [facility] Comment on above: Performed By: #### Titus BOURGEOIS #### [facility] [address] [place] [address] Commodities Trader: Daniella Lott MD Lipid Profileon 05-19-2023 Cholesterol [Mass/Vol] 88 mg/dL Normal 0-199 [facility] Comment on above: Result Comment: Cholesterol Guidelines: <200 Desirable 200-240 Borderline >240 Undesirable Performed By: #### JP SMITH, CDP #### [facility] [address] [place] [address] Commodities Trader: Daniella Lott MD Cholesterol in HDL [Mass/Vol] 37 mg/dL Low >40 [facility] Comment on above: Result Comment: HDL Guidelines: <40 Undesirable 40-59 Borderline >59 Desirable Performed By: #### JP SMITH, CDP #### [facility] [address] [place], [place] [phone] Commodities Trader: Daniella Lott MD Cholesterol in LDL [Mass/Vol] 41 mg/dL Normal 0-100 [facility] Comment on above: Result Comment: LDL Guidelines: <100 Desirable 100-129 Near to/above Desirable 130-159 Borderline >159 Undesirable Direct (measured) LDL and calculated LDL are not interchangeable tests. Performed By: #### JP SMITH, CDP #### [facility] [address] [place], [place] [phone] Commodities Trader: Daniella Lott MD Cholesterol in VLDL [Mass/Vol] 10 mg/dL Normal [facility] Comment on above: Performed By: #### JP SMITH, CDP #### [facility] [address] [place] [address] Commodities Trader: Daniella Lott MD Cholesterol.total/ Cholesterol in HDL [Mass ratio] 2.0 {ratio} Normal [facility] Comment on above: Performed By: #### JP SMITH, CDP #### [facility] [address] [place] [address] Commodities Trader: Daniella Lott MD Triglyceride [Mass/Vol] 51 mg/dL Normal <150 [facility] Comment on above: Result Comment: Triglyceride Guidelines: <150 Desirable 150-199 Borderline 200-499 High >499 Very high Based on AHA Guidelines for fasting triglyceride, November 2011. Performed By: #### T JP BOURGEOIS, CDP #### [facility] [address] [place] [address] Commodities Trader: Daniella Lott MD No Panel Informationon 05-18 Interpretation and review of laboratory results Abnormal [facility] CBC auto differentialon 04-29 Basophils (Bld) [#/Vol] 0.03 10*3/uL [facility] Basophils/100 WBC (Bld) 1 % 0 - 2 % [facility] Eosinophils (Bld) [#/Vol] 0.06 10*3/uL [facility] Eosinophils/100 WBC (Bld) 1 % 1 - 4 % [facility] Erythrocyte distribution width (RBC) [Ratio] 13.5 % 11.8 - 14.4 % [facility] Hematocrit (Bld) [Volume fraction] 31.5 % Low 36.3 - 47.1 % [facility] Hemoglobin (Bld) [Mass/Vol] 10.1 g/dL Low 11.9 - 15.1 g/dL [facility] Immature granulocytes (Bld) [#/Vol] [facility] Immature granulocytes/100 WBC (Bld) 0 % 0 [facility] Interpretation and review of laboratory results Abnormal [facility] Lymphocytes/100 WBC (Bld) 27 % 24 - 43 % [facility] Lymphocytes/100 WBC (Bld) 1.53 % [facility] MCH (RBC) [Entitic mass] 31.6 pg 25.2 - 33.5 pg [facility] MCHC (RBC) [Mass/Vol] 32.1 g/dL 28.4 - 34.8 g/dL [facility] MCV (RBC) [Entitic vol] 98.4 fL 82.6 - 102.9 fL [facility] Monocytes/100 WBC (Bld) 11 % 3 - 12 % [facility] Monocytes/100 WBC (Bld) 0.65 % [facility] Neutrophils/100 WBC (Bld) 60 % 36 - 65 % [facility] Nucleated RBC/100 WBC (Bld) [Ratio] 0.0 % 0.0 per 100 WBC [facility] Platelet mean volume (Bld) [Entitic vol] 10.1 fL 8.1 - 13.5 fL [facility] Platelets (Bld) [#/Vol] 138 10*3/uL [facility] RBC (Bld) [#/Vol] 3.20 10*6/uL Low 3.95 - 5.1 1 m/uL [facility] Segmented neutrophils/100 WBC (Bld) 3.48 % [facility] WBC other (Bld) [#/Vol] 5.8 [facility] CBC with Diffon 05-18-2023 Abs. Basophil 0.03 k/uL Normal 0.00-0.20 [facility] Comment on above: Performed By: #### T ROPI #### [facility] [address] [place], [place] [phone] Commodities Trader: Daniella Lott MD Abs.Imm.Granulocyt e <0.03 Normal 0.00-0.30 [facility] Comment on above: Performed By: #### T ROPI #### [facility] [address] [place] [address] Commodities Trader: Daniella Lott MD Abs.Neutrophil (Seg) 3.48 k/uL Normal 1.50-8.10 [facility] Comment on above: Performed By: #### T ROPI #### [facility] [address] [place] [address] Commodities Trader: Daniella Lott MD Basophils/100 WBC (Bld) 1 % Normal 0-2 [facility] Comment on above: Performed By: #### T ROPI #### [address] [place], [place] [phone] Commodities Trader: Daniella Lott MD Eosinophils (Bld) [#/Vol] 0.06 10*3/uL Normal 0.00-0.44 [facility] Comment on above: Performed By: #### T ROPI #### [address] [place], [place] [phone] Commodities Trader: Daniella Lott MD Eosinophils/100 WBC (Bld) 1 % Normal 1-4 [facility] Comment on above: Performed By: #### T ROPI #### [address] [place] [phone] Commodities Trader: Daniella Lott MD Erythrocyte distribution width (RBC) [Ratio] 13.5 % Normal 11.8-14.4 [facility] Comment on above: Performed By: #### T ROPI #### [address] [place], [facility] Commodities Trader: Daniella Lott MD Hematocrit (Bld) [Volume fraction] 31.5 % Low 36.3-47.1 [facility] Comment on above: Performed By: #### T ROPI #### [address] [place], [facility] Commodities Trader: Daniella Lott MD Hemoglobin (Bld) [Mass/Vol] 10.1 g/dL Low 11.9-15.1 [facility] Comment on above: Performed By: #### T ROPI #### [address] [place], [place] [phone] Commodities Trader: Daniella Lott MD Immature granulocytes/100 WBC (Bld) 0 % Normal 0 [facility] Comment on above: Performed By: #### T ROPI #### [facility] [address] [place], [place] [phone] Commodities Trader: Daniella Lott MD Lymphocytes (Bld) [#/Vol] 1.53 10*3/uL Normal 1.10-3.70 [facility] Comment on above: Performed By: #### T ROPI #### [facility] [address] [place], [place] [phone] Commodities Trader: Daniella Lott MD Lymphocytes/100 WBC (Bld) 27 % Normal 24-43 [facility] Comment on above: Performed By: #### T ROPI #### [facility] [address] [place], [place] [phone] Commodities Trader: Daniella Lott MD MCH (RBC) [Entitic mass] 31.6 pg Normal 25.2-33.5 [facility] Comment on above: Performed By: #### T ROPI #### [address] [place], [place] [phone] Commodities Trader: Daniella Lott MD MCHC (RBC) [Mass/Vol] 32.1 g/dL Normal 28.4-34.8 [facility] Comment on above: Performed By: #### T ROPI #### [address] [place], [place] [phone] Commodities Trader: Daniella Lott MD MCV (RBC) [Entitic vol] 98.4 fL Normal 82.6-102.9 [facility] Comment on above: Performed By: #### T ROPI #### [address] [place] [address] Commodities Trader: Daniella Lott MD Monocytes (Bld) [#/Vol] 0.65 10*3/uL Normal 0.10-1.20 [facility] Comment on above: Performed By: #### T ROPI #### [address] [place] [address] Commodities Trader: Daniella Lott MD Monocytes/100 WBC (Bld) 11 % Normal 3-12 [facility] Comment on above: Performed By: #### T ROPI #### [facility] [address] [place], [place] [phone] Commodities Trader: Daniella Lott MD Neutrophil (Seg) 60 % Normal 36-65 [facility] Comment on above: Performed By: #### T ROPI #### [facility] [address] [place], [place] [phone] Commodities Trader: Daniella Lott MD NRBC Automated 0.0 per 100 WBC Normal 0.0 [facility] Comment on above: Performed By: #### T ROPI #### [facility] [address] [place], [place] [phone] Commodities Trader: Daniella Lott MD Platelet mean volume (Bld) [Entitic vol] 10.1 fL Normal 8.1-13.5 [facility] Comment on above: Performed By: #### T ROPI #### [facility] [address] [place], [place] [phone] Commodities Trader: Daniella Lott MD Platelets (Bld) [#/Vol] 138 10*3/uL Normal 138-453 [facility] Comment on above: Performed By: #### T ROPI #### [facility] [address] [place], [place] [phone] Commodities Trader: Daniella Lott MD RBC (Bld) [#/Vol] 3.20 10*6/uL Low 3.95-5.11 [facility] Comment on above: Performed By: #### T ROPI #### [facility] [address] [place], [place] [phone] Commodities Trader: Daniella Lott MD WBC (Bld) [#/Vol] 5.8 10*3/uL Normal 3.5-11.3 [facility] Comment on above: Performed By: #### T ROPI #### [facility] [address] [place], [place] [phone] Commodities Trader: Daniella Lott MD Comp Metabolic Pr/rfx MGon 0 05-18-2023 Albumin [Mass/Vol] 3.1 g/dL Low 3.5-5.2 [facility] Comment on above: Performed By: #### T ROPI #### [facility] [address] [place], [place] [phone] Commodities Trader: Daniella Lott MD Albumin/Glob Ratio 1.3 Normal 1.0-2.5 [facility] Comment on above: Performed By: #### T ROPI #### [facility] [address] [place], [place] [phone] Commodities Trader: Daniella Lott MD Alkaline Phos 58 U/L Normal 35-104 [facility] Comment on above: Performed By: #### T ROPI #### [facility] [address] [place], [place] [phone] Commodities Trader: Daniella Lott MD ALT [Catalytic activity/Vol] 5 U/L Normal 5-33 [facility] Comment on above: Performed By: #### T ROPI #### [facility] [address] [place], [place] [phone] Commodities Trader: Daniella Lott MD Anion gap [Moles/Vol] 10 mmol/L Normal 9-17 [facility] Comment on above: Performed By: #### T ROPI #### [facility] [address] [place], [place] [phone] Commodities Trader: Daniella Lott MD AST [Catalytic activity/Vol] 13 U/L Normal <32 [facility] Comment on above: Performed By: #### T ROPI #### [facility] [address] [place], [place] [phone] Commodities Trader: Daniella Lott MD Bilirubin [Mass/Vol] 0.6 mg/dL Normal 0.3-1.2 [facility] Comment on above: Performed By: #### T ROPI #### [facility] [address] [place], [place] [phone] Commodities Trader: Daniella Lott MD BUN/CRE Ratio 18 Normal 9-20 [facility] Comment on above: Performed By: #### T ROPI #### [facility] [address] [place], [place] [phone] Commodities Trader: Daniella Lott MD Calcium [Mass/Vol] 8.0 mg/dL Low 8.6-10.4 [facility] Comment on above: Performed By: #### T ROPI #### [facility] [address] [place], [place] [phone] Commodities Trader: Daniella Lott MD Chloride [Moles/Vol] 104 mmol/L Normal 98-107 [facility] Comment on above: Performed By: #### T ROPI #### [facility] [address] [place], [place] [phone] Commodities Trader: Daniella Lott MD CO2 [Moles/Vol] 22 mmol/L Normal 20-31 [facility] Comment on above: Performed By: #### T ROPI #### [facility] [address] [place], [place] [phone] Commodities Trader: Daniella Lott MD Creatinine [Mass/Vol] 1.3 mg/dL High 0.5-0.9 [facility] Comment on above: Performed By: #### T ROPI #### [facility] [address] [place] [address] Commodities Trader: Daniella Lott MD GFR/1.73 sq M.predicted among non-blacks MDRD (S/P/Bld) [Vol rate/Area] 44 mL/min/{1.73_m2} Low >60 [facility] Comment on above: Result Comment: These results [...] secretion. Performed By: #### T ROPI #### [facility] [address] [place] [address] Commodities Trader: Daniella Lott MD Glucose [Mass/Vol] 83 mg/dL Normal 70-99 [facility] Comment on above: Performed By: #### T ROPI #### [facility] [address] [place] [address] Commodities Trader: Daniella Lott MD Potassium [Moles/Vol] 4.1 mmol/L Normal 3.7-5.3 [facility] Comment on above: Performed By: #### T ROPI #### [address] [place] [address] Commodities Trader: Daniella Lott MD Protein [Mass/Vol] 5.4 g/dL Low 6.4-8.3 [facility] Comment on above: Performed By: #### T ROPI #### [facility] [address] [place] [address] Dr[address] [place], [place] [phone] Commodities Trader: Daniella Lott MD Sodium [Moles/Vol] 136 mmol/L Normal 135-144 [facility] Comment on above: Performed By: #### T ROPI #### [facility] [address] [place] [address] Commodities Trader: Daniella Lott MD Urea nitrogen [Mass/Vol] 23 mg/dL Normal 8-23 [facility] Comment on above: Performed By: #### T ROPI #### [facility] [address] [place] [address] Commodities Trader: Daniella Lott MD Comprehensive Metabolic Pane l w/ Reflex to MGon 05-18-2023 Albumin [Mass/Vol] 3.1 g/dL Low 3.5 - 5.2 g/dL [facility] Albumin/Globulin [Mass ratio] 1.3 {ratio} 1.0 - 2.5 [facility] ALP [Catalytic activity/Vol] 58 U/L 35 - 104 U/L [facility] ALT [Catalytic activity/Vol] 5 U/L 5 - 33 U/L [facility] Anion gap [Moles/Vol] 10 mmol/L 9 - 17 mmol/L [facility] AST [Catalytic activity/Vol] 13 U/L NINF - 32 U/L [facility] Bilirubin [Mass/Vol] 0.6 mg/dL 0.3 - 1.2 mg/dL [facility] Calcium [Mass/Vol] 8.0 mg/dL Low 8.6 - 10. 4 mg/dL [facility] Chloride [Moles/Vol] 104 mmol/L 98 - 107 mmol/L [facility] CO2 [Moles/Vol] 22 mmol/L 20 - 31 mmol/L [facility] Creatinine [Mass/Vol] 1.3 mg/dL High 0.5 - 0.9 mg/dL [facility] GFR/1.73 sq M.predicted MDRD (S/P/Bld) [Vol rate/Area] 44 mL/min/{1.73_m2} Low - PINF [facility] Comment on above: These results are not [...] [Mass/Vol] 83 mg/dL 70 - 99 mg/dL [facility] Interpretation and review of laboratory results Abnormal [facility] Potassium [Moles/Vol] 4.1 mmol/L 3.7 - 5.3 mmol/L [employer] Protein [Mass/Vol] 5.4 g/dL Low 6.4 - 8.3 g/dL [employer] Sodium [Moles/Vol] 136 mmol/L 135 - 144 mmol/L [employer] Urea nitrogen [Mass/Vol] 23 mg/dL 8 - 23 mg/dL [employer] Urea nitrogen/Creatinin e [Mass ratio] 18 mg/mg 9 - 20 [employer] [facility] [employer] EKG 12 LeadOrdered By: Adam Silvestre on 05-18-2023 Atrial Rate 58 BPM [employer] Work Phone: P Haywood 69 degrees [employer] Work Phone: P-R Interval 140 ms [employer] Work Phone: Q-T Interval 418 ms [employer] Work Phone: QRS Duration 82 ms [employer] Work Phone: QTc Calculation (Bazett) 410 ms [employer] Work Phone: R Haywood 43 degrees [employer] Work Phone: T [place]wood 54 degrees [employer] Work Phone: Ventricular Rate 58 BPM [facility], [facility] [employer] Work Phone: [employer] Work Phone: EKG 12 Leadon 05-18-2023 Sinus bradycardia Otherwise normal ECG No previous ECGs available Confirmed by LAVERNE SILVESTRE ([id number]) on 05/18/2023 1:01:51 AM [facility] RADIOLOGY Laverne Silvestre MD - 05/18/2023 Sinus bradycardia Otherwise normal ECG No previous ECGs available Confirmed by LAVERNE SILVESTRE ([id number]) on 05/18/2023 1:01:51 AM [employer] Atrial Rate 75 BPM [employer] P [place] 91 degrees [employer] P-R Interval 154 ms [facility] Q-T Interval 380 ms [facility] QRS Duration 86 ms [facility] QTc Calculation (Bazett) 424 ms [facility] R [place] 38 degrees [facility] T [place] 50 degrees [facility] Ventricular Rate 75 BPM [facility] Normal sinus rhythm Normal ECG When compared with ECG of 17-MAY-2023 11:52, (unconfirmed) No significant change was found Confirmed by LAVERNE SILVESTRE ([id number]) on 05/18/2023 12:57:09 AM [facility] RADIOLOGY Laverne Silvestre MD - 05/18/2023 Normal sinus rhythm Normal ECG When compared with ECG of 17-MAY-2023 11:52, (unconfirmed) No significant change was found Confirmed by LAVERNE SILVESTRE ([id number]) on 05/18/2023 12:57:09 AM [facility] EKG Rhythm Stripon [facility] CBC with Auto Differentialon 05-17-2023 Basophils (Bld) [#/Vol] 0.03 10*3/uL [facility] Immature granulocytes (Bld) [#/Vol] [facility] Interpretation and review of laboratory results Abnormal [facility] Lymphocytes/100 WBC (Bld) 1.23 % [facility] Monocytes/100 WBC (Bld) 0.57 % [facility] Neutrophils/100 WBC (Bld) 75 % High 36 - 65 % [facility] Nucleated RBC/100 WBC (Bld) [Ratio] 0.0 % 0.0 per 100 WBC [facility] Segmented neutrophils/100 WBC (Bld) 5.64 % [facility] WBC other (Bld) [#/Vol] 7.6 [facility] CBC with Diffon 05-17-2023 Abs. Basophil 0.03 k/uL Normal 0.00-0.20 [facility] Comment on above: Performed By: #### T BK #### [facility] [address] [place], [place] [address] Commodities Trader: Daniella Lott MD Abs.Imm.Granulocyt e <0.03 Normal 0.00-0.30 [facility] Comment on above: Performed By: #### T ROPI #### [facility] [address] [place], [place] [address] Commodities Trader: Daniella Lott MD Abs.Neutrophil (Seg) 5.64 k/uL Normal 1.50-8.10 [facility] Comment on above: Performed By: #### T ROPI #### [address] [place] [phone] Commodities Trader: Daniella Lott MD Lymphocytes (Bld) [#/Vol] 1.23 10*3/uL Normal 1.10-3.70 [facility] Comment on above: Performed By: #### T ROPI #### [address] [place] [address] Commodities Trader: Daniella Lott MD Monocytes (Bld) [#/Vol] 0.57 10*3/uL Normal 0.10-1.20 [facility] Comment on above: Performed By: #### T ROPI #### [address] [place], [place] [address] Commodities Trader: Daniella Lott MD Neutrophil (Seg) 75 % High 36-65 [facility] Comment on above: Performed By: #### T ROPI #### [facility] [address] [place], [place] [address] Commodities Trader: Daniella Lott MD NRBC Automated 0.0 per 100 WBC Normal 0.0 [facility] Comment on above: Performed By: #### T ROPI #### [facility] [address] [place] [address] [place] [address] Commodities Trader: Daniella Lott MD WBC (Bld) [#/Vol] 7.6 10*3/uL Normal 3.5-11.3 [facility] Comment on above: Performed By: #### T ROPI #### [address] [place], [place] [phone] Commodities Trader: Daniella Lott MD Basophils/100 WBC (Bld) 0 % Normal 0-2 [facility] Comment on above: Performed By: #### T ROPI #### [address] [place] [phone] Commodities Trader: Daniella Lott MD Eosinophils (Bld) [#/Vol] 0.11 10*3/uL Normal 0.00-0.44 [facility] Comment on above: Performed By: #### T ROPI #### [address] [place] [phone] Commodities Trader: Daniella Lott MD Eosinophils/100 WBC (Bld) 1 % Normal 1-4 [facility] Comment on above: Performed By: #### T ROPI #### [address] [place], [id number] Commodities Trader: Daniella Lott MD Erythrocyte distribution width (RBC) [Ratio] 13.7 % Normal 11.8-14.4 [facility] Comment on above: Performed By: #### T ROPI #### [address] [place] [phone] Commodities Trader: Daniella Lott MD Hematocrit (Bld) [Volume fraction] 38.1 % Normal 36.3-47.1 [facility] Comment on above: Performed By: #### T ROPI #### [address] [place] [address] Commodities Trader: Daniella Lott MD Hemoglobin (Bld) [Mass/Vol] 11.8 g/dL Low 11.9-15.1 [facility] Comment on above: Performed By: #### T ROPI #### [address] [place] [phone] Commodities Trader: Daniella Lott MD Immature granulocytes/100 WBC (Bld) 0 % Normal 0 [facility] Comment on above: Performed By: #### T ROPI #### [address] [place] [phone] Commodities Trader: Daniella Lott MD Lymphocytes/100 WBC (Bld) 16 % Low 24-43 [facility] Comment on above: Performed By: #### T ROPI #### [address] [place] [phone] Commodities Trader: Daniella Lott MD MCH (RBC) [Entitic mass] 30.6 pg Normal 25.2-33.5 [facility] Comment on above: Performed By: #### T ROPI #### [address] [place] [phone] Commodities Trader: Daniella Lott MD MCHC (RBC) [Mass/Vol] 31.0 g/dL Normal 28.4-34.8 [facility] Comment on above: Performed By: #### T ROPI #### [address] [place] [phone] Commodities Trader: Daniella Lott MD MCV (RBC) [Entitic vol] 99.0 fL Normal 82.6-102.9 [facility] Comment on above: Performed By: #### T ROPI #### [address] [place] [address] Commodities Trader: Daniella Lott MD Monocytes/100 WBC (Bld) 8 % Normal 3-12 [facility] Comment on above: Performed By: #### T ROPI #### [address] [place], [place] [phone] Commod[employer] Trader: Daniella Lott MD Platelet mean volume (Bld) [Entitic vol] 9.5 fL Normal 8.1-13.5 [facility] Comment on above: Performed By: #### T ROPI #### [address] [place] [address] Commodities Trader: Daniella Lott MD Platelets (Bld) [#/Vol] 169 10*3/uL Normal 138-453 [facility] Comment on above: Performed By: #### T ROPI #### [address] [place] [address] Commodities Trader: Daniella Lott MD RBC (Bld) [#/Vol] 3.85 10*6/uL Low 3.95-5.11 [facility] Comment on above: Performed By: #### T ROPI #### [address] [place] [address] Commodities Trader: Daniella Lott MD CTA CHEST ABDOMEN [facility]ELVIS [facility] CTA CHEST ABDOMEN PELVIS W CONTRAST [...] PROVIDED HISTORY: chest pain, into back, previous NC, and also known PVD with aortic stent TECHNOLOGIST PROVIDED HISTORY: chest pain, into back, previous NC, and also known PVD with aortic stent [...] Faisal Treviño MD 05/17/23 Final result Normal [facility] CTA Chest vessels and Abdomi nal vessels [...] Further evaluation with pelvic ultrasound is recommended. [facility] EXAMINATION: CTA OF THE CHEST, [...] PROVIDED HISTORY: chest pain, into back, previous NC, and also known PVD with aortic stent TECHNOLOGIST PROVIDED HISTORY: chest pain, into back, previous NC, and also known PVD with aortic stent [...] superficial soft tissues show no acute process. [facility] Faisal Julian MD - 05/17/2023 EXAMINATION: [...] PROVIDED HISTORY: chest pain, into back, previous NC, and also known PVD with aortic stent TECHNOLOGIST PROVIDED HISTORY: chest pain, into back, previous NC, and also known PVD with aortic stent [...] Further evaluation with pelvic ultrasound is recommended. [facility] Radiology Study observation (narrative) [facility] CTA Chest vessels and Abdomi nal vessels and Pelvis vessels W contrast IVOrdered By: Faisal Treviño on 05-17-2023 [facility] Work Phone: Comp Metabolic Profon 2023 Albumin [Mass/Vol] 3.8 g/dL Normal 3.5-5.2 [facility] Comment on above: Performed By: #### T ROPI #### [facility] [address] [place] [address] [employer] Trader: Daniella Lott MD Albumin/Glob Ratio 1.4 Normal 1.0-2.5 [facility] Comment on above: Performed By: #### T ROPI #### [facility] [address] [place] [address] Commodities Trader: Daniella Lott MD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 Systolic blood pressure 144 mm[Hg] Ira EngelNulty ASSOCIATE SOFTWARE ENGINEER.CHEESE CUTTER Work Phone: [facility] 07-28-2022 14:26-0400 Body height 154.9 cm Ayo Paul MD Work Phone: [facility] 07-28-2022 14:26-0400 Body weight 61.33 kg Ayo Paul MD Work Phone: [facility] 07-28-2022 14:26-0400 Diastolic blood pressure 82 mm[Hg] Ayo Paul MD Work Phone: [facility] 07-28-2022 14:26-0400 Heart rate 57 /min Ayo Paul MD Work Phone: [facility] 07-28-2022 14:26-0400 Systolic blood pressure 136 mm[Hg] Ayo Paul MD Work Phone: [facility] 01-26-2022 14:43-0500 Body height 154.9 cm Ayo Paul MD Work Phone: [facility] 01-26-2022 14:43-0500 Body weight 62.87 kg Ayo Paul MD Work Phone: [facility] 01-26-2022 14:43-0500 Diastolic blood pressure 58 mm[Hg] Ayo Paul MD Work Phone: [facility] 01-26-2022 14:43-0500 Heart rate 68 /min Ayo Paul MD Work Phone: [facility] 01-26-2022 14:43-0500 Systolic blood pressure 104 mm[Hg] Ayo Paul MD Work Phone: [facility] 12-09-2021 14:35-0400 Diastolic blood pressure 71 mm[Hg] Sergo Tucker MD Work Phone: [facility] 12-09-2021 14:35-0400 Heart rate 57 /min Sergo Tucker MD Work Phone: [facility] 12-09-2021 14:35-0400 Systolic blood pressure 150 mm[Hg] Sergo Tucker MD Work Phone: [facility] 08-11-2021 12:52-0400 Body weight 65.77 kg Rupesh Gu DO Work Phone: [facility] 08-11-2021 12:52-0400 Diastolic blood pressure 70 mm[Hg] Rupesh Gu DO Work Phone: [facility] 08-11-2021 12:52-0400 Heart rate 54 /min Rupesh Gu DO Work Phone: [facility] 08-11-2021 12:52-0400 SaO2% (BldA) [Mass fraction] 96 % Rupesh Gu DO Work Phone: [facility] 08-11-2021 12:52-0400 Systolic blood pressure 130 mm[Hg] Rupesh Gu DO Work Phone: [facility] Encounters Encounter Date Encounter Type Care Provider Facility Start: 05-20-2023 Telephone encounter Ayo dooley MD Work Phone: Cardiology Comment on above: ER/Urgent Referral Start: 05-20-2023 End: 05-20-2023 Emergency department patient visit CLARI DOUGEHRTY [facility] Start: 05-17-2023 End: 05-19-2023 Evaluation and management of inpatient LUIS ESTRELLA [facility] Start: 05-17-2023 End: 05-19-2023 Evaluation and management of inpatient Arabella Dutton DO Work Phone: [facility] ICU Comment on above: Chest pain, unspecif ied type (Primary Dx); Right sided abdominal pain; Coronary artery disease involving [place] coronary artery of [place] heart without angina pectoris; Mixed hyperlipidemia; Essential hypertension; Acute deep vein thrombosis (DVT) of distal vein of right lower extremity (HCC) Start: 05-17-2023 End: 05-17-2023 [facility]QHC visit new patient Eden Yañez CHEESE CUTTER Work Phone: [facility] Work Phone: Start: 05-17-2023 End: 05-17-2023 Emergency department patient visit Izzy Chu DDS Work Phone: [facility] Work Phone: Start: 05-16-2023 ambulatory Izzy Chu DDS [facility] Start: 04-25-2023 End: 04-25-2023 ambulatory KAYLA H MONTERROSO Facility:[facility] Start: 03-31-2023 ambulatory Matilde Salvador [facility] [place] Comment on above: Population Health [facility] ([facility] ) Start: 03-14-2023 End: 03-14-2023 ambulatory KAYLA H MONTERROSO Facility:[facility] Start: 03-03-2023 End: 03-03-2023 ambulatory KAYLA H KRISS Facility:[facility] Start: 02-25-2023 End: 02-25-2023 ambulatory RENAE GERMAN Facility:[facility] Start: 02-02-2023 ambulatory Kayla Monterroso MD Work Phone: Internal Medicine [facility] [place] Start: 01-28-2023 Refill Vielka vargas ASSOCIATE SOFTWARE ENGINEER.CHEESE CUTTER Work Phone: Cardiology Comment on above: Refill Request Start: 01-28-2023 End: 01-29-2023 ambulatory KAYLA MONTERROSO Facility:[facility] Start: 01-28-2023 End: 01-28-2023 Patient encounter procedure Ayo Paul MD Work Phone: Cardiology Comment on above: Paroxysmal atrial fi brillation (HCC) (Primary Dx); Aortoiliac occlusive disease (HCC) Start: 01-14-2023 End: 01-14-2023 ambulatory EILEEN JACKSON Facility:[facility] Start: 01-14-2023 End: 01-14-2023 Patient encounter procedure Eileen Jackson MD Work Phone: Neurology Comment on above: APPOINTMENT CANCELLE D (Primary Dx); Pulsatile tinnitus, left ear Start: 11-15-2022 End: 11-15-2022 Patient encounter procedure Risa Warner ASSOCIATE SOFTWARE ENGINEER.CHEESE CUTTER Work Phone: Kidney Medicine Comment on above: Benign hypertension with chronic kidney disease, stage III (HCC) (Primary Dx); Stage 3b chronic kidney disease (HCC); Hyperlipidemia, unspecified hyperlipidemia type Carotid artery steno sis, asymptomatic, bilateral (Primary Dx); PVD (peripheral vascular disease) (HCC); Aortoiliac occlusive disease (HCC) Start: 11-15-2022 End: 11-15-2022 ambulatory RISA WARNER Facility:[facility] Start: 10-21-2022 End: 10-21-2022 ambulatory IRA VELEZ Facility:[facility] Start: 10-21-2022 End: 10-21-2022 Patient encounter procedure Ira Salgado ASSOCIATE SOFTWARE ENGINEER.CHEESE CUTTER Work Phone: Internal Medicine Comment on above: Encounter for Medica re annual wellness exam (Primary Dx); Coronary artery disease involving [place] coronary artery of [place] heart without angina pectoris; Mixed hyperlipidemia; Paroxysmal atrial fibrillation (HCC); Essential hypertension; Atherosclerotic peripheral vascular disease with intermittent claudication (HCC); CKD (chronic kidney disease) stage 4, GFR 15-29 ml/min (HCC) Start: 07-28-2022 End: 07-28-2022 ambulatory AYO PAUL Facility:[facility] Start: 07-28-2022 End: 07-28-2022 Patient encounter procedure Ayo Paul MD Work Phone: Cardiology Comment on above: Paroxysmal atrial fi brillation (HCC) (Primary Dx); Hypertension, unspecified type; Atherosclerotic peripheral vascular disease with intermittent claudication (HCC); Aortoiliac occlusive disease (HCC) Start: 07-28-2022 End: 07-29-2022 [facility] Start: 05-26-2022 Refill Kayla Monterroso MD Work Phone: [address] [place] [address] Comment on above: Refill Request Start: 03-03-2022 ambulatory Kayla Monterroso MD Work Phone: Internal Medicine [facility] Start: 02-23-2022 End: 02-24-[address] [facility] Facility: Start: 01-26-2022 End: 01-26-2022 Patient encounter procedure Ayo Paul MD Work Phone: Cardiology Comment on above: Paroxysmal atrial fi brillation (HCC) (Primary Dx); History of ST elevation myocardial infarction (STEMI); PAF (paroxysmal atrial fibrillation) (HCC) Start: 01-14-2022 End: 01-14-2022 ambulatory EILEEN aBiley JACKSON Facility:[facility] Start: 12-17-2021 ambulatory Gabriella allison MA [facility] [place] Comment on above: Population Health Na vigation Outreach (Spouse of [facility] outreach pt) Start: 12-09-2021 End: 12-09-2021 [...] Appointment Start: 11-12-2021 ambulatory Leida Boston carmel ASSOCIATE SOFTWARE ENGINEER.CHEESE CUTTER Work Phone: Pulmonary Medicine Start: 11-11-2021 End: 11-11-2021 ambulatory Macrinatrini Broussardlac PA-C Work Phone: Otolaryngology Comment on above: Pulsatile tinnitus, left ear (Primary Dx); Lightheadedness; Tinnitus of left ear; Tension-type headache, not intractable, unspecified chronicity pattern Start: 11-11-2021 End: 11-11-2021 Telemedicine consultation with patient Macrina Sukalac PA-C Work Phone: [facility] Start: 10-30-2021 Orders Only Renae German APR N.CHEESE CUTTER Work Phone: Vascular Surgery Comment on above: [...] Kayla Monterroso MD Work Phone: [facility] Start: 09-18-2021 Refill Kayla Monterroso MD Work Phone: Internal Medicine Comment on above: Refill Request Start: 08-11-2021 End: 08-11-2021 Patient encounter procedure Rupesh Gu DO Work Phone: Cardiology Comment on above: Paroxysmal atrial fi brillation (HCC) (Primary Dx); Coronary artery disease involving [place] coronary artery of [place] heart without angina pectoris; Hypertension, unspecified type; Mixed hyperlipidemia; Non-rheumatic mitral regurgitation; PVD (peripheral vascular disease) (HCC) Start: 06-26-2021 Orders Only Ayo Bridges Vernon Leo Tovar Work Phone: Cardiology Comment on above: Paroxysmal atrial fi brillation (HCC) (Primary Dx) Start: 06-17-2021 Telephone encounter Risa Costa Warner ASSOCIATE SOFTWARE ENGINEER.CHEESE CUTTER Work Phone: Kidney Medicine Comment on above: Appointment Start: 09-30-2016 End: 10-01-2016 Ambulatory GILMER SHEPPARD Facility:[facility] Procedures Date Procedure Procedure Detail Performing [...] w/least 12 lds i&r only Laine Tejeda ASSOCIATE SOFTWARE ENGINEER - [employer]TER Work Phone: Start: 05-18-2023 Mri abdomen w/o & w/contrast material Luis Estrella MD Work Phone: Start: 05-18-2023 Blood count complete auto&auto difrntl wbc Laine Tejeda ASSOCIATE SOFTWARE ENGINEER - [employer]ESE C[employer]TER Work Phone: Start: 05-17-2023 Intermittent pulse oximetry [...] 05-17-2023 Antibody hiv-1&hiv-2 single result Eden Yañez CHEESE CUTTER Work Phone: Start: 05-17-2023 Aspirin 81mg Oral Tab,EBOX Eden Yañez CHEESE CUTTER Work Phone: Start: 05-17-2023 Current tobacco non- user cad cap copd pv dm Eden Yañez CHEESE CUTTER Work Phone: Start: 05-17-2023 Most recent diastoli c blood pressure 80-89 mm hg Edenmassiel Yañez CHEESE CUTTER Work Phone: Start: 05-17-2023 Most recent systolic blood pres>/equal 140 mm hg Eden Yañez CHEESE CUTTER Work Phone: Start: 05-17-2023 Nitroglycerine 0.4 M g Sublingual eACH, EBOX Edne Yañez CHEESE CUTTER Work Phone: Start: 05-17-2023 Pt-focused hlth risk [...] - S kay or Plasma Vielka Pennington ASSOCIATE SOFTWARE ENGINEER.CHEESE CUTTER Work Phone: Start: 07-28-2022 Ecg routine ecg w/le ast 12 lds i&r only [facility] Provider Start: 11-27-2020 Lipid 1996 panel - S kay or Plasma Risa Warner ASSOCIATE SOFTWARE ENGINEER.CHEESE CUTTER Work Phone: Start: 09-27-2020 Adult depression scr eening assessment Risa Warner ASSOCIATE SOFTWARE ENGINEER.CHEESE CUTTER Work Phone: Start: 07-29-2020 Mammography Risa smith ASSOCIATE SOFTWARE ENGINEER.CHEESE CUTTER Work Phone: Start: 03-28-2019 Colonoscopy Risa smith APRN.[facility] Work Phone: Plan of Treatment Date Care Activity Detail Author Start: 01-29-2028 Lipid 1996 panel - Serum or Plasma Lipid Screening [facility] Start: 01-29-2028 Lipid panel Lipid Screening [facility] Start: 01-28-2026 [facility] Start: 11-27-2025 Lipid 1996 panel - Serum or Plasma Lipid Screening [facility] Start: 11-27-2025 LIPID SCREEN LIPID SCREEN [facility] Start: 07-28-2025 DIABETES SCREEN DIABETES SCREEN [facility] Start: 07-28-2025 Diabetes Screening Diabetes Screenny g [facility] Start: 05-18-2024 GFR test (Diabetes, CKD 3-4, OR last GFR 15-59) GFR test (Diabetes, CKD 3-4, OR last GFR 15-59) [facility] Start: 04-25-2024 Annual PCP Team [employer] Crew[employer] jeff Disease Visit Annual PCP Team Chronic Disease Visit [facility] Start: 03-28-2024 Colonoscopy COLONOSCOPY [facility] Start: 03-28-2024 COLORECTAL CANCER SCREENING COLORECTAL CANCER SCREENING [facility] Start: 03-28-2024 Screening for malign ant neoplasm of colon [facility] Start: 03-14-2024 BP Controlled (<130/80) BP Controlle d (<130/80) [facility] Start: 01-29-2024 BP Controlled (<130/80) BP Controlle d (<130/80) [facility] Start: 01-29-2024 Complete blood count Hemoglobin/Cheo tocrit [facility] Start: 01-29-2024 Creatinine measurement Serum Creatin ine [facility] Start: 01-29-2024 Hemoglobin/Hematocrit Hemoglobin/Hem atocrit [facility] Start: 01-29-2024 Hepatitis B surface antibody level LDL Cholesterol [facility] Start: 01-29-2024 Serum Creatinine Serum Creatinine Cl [facility] Start: 01-15-2024 BP Controlled (<130/80) BP Controlle d (<130/80) [facility] Start: 11-28-2023 DIABETES SCREEN DIABETES SCREEN [facility] Start: 11-16-2023 End: 01-16-2024 25-hydroxyvitamin D3 [Mass/volume] in Serum or Plasma VITAMIN D 25 HYDROXY Lab Routine Benign hypertension with chronic kidney disease, stage III (HCC) Stage 3b chronic kidney disease (HCC) Hyperlipidemia, unspecified hyperlipidemia type Expected: 11/16/2023, Expires: 01/16/2024 [facility] Work Phone: Comment on above: Expected: 11/16/2023 , Expires: 01/16/2024 Start: 11-16-2023 End: 01-16-2024 ALBUMIN/CREAT RATIO RND UR ALBUMIN/CREAT RATIO RND UR Lab Routine Benign hypertension with chronic kidney disease, stage III (HCC) Stage 3b chronic kidney disease (HCC) Hyperlipidemia, unspecified hyperlipidemia type Expected: 11/16/2023, Expires: 01/16/2024 [facility] Work Phone: Comment on above: Expected: 11/16/2023 , Expires: 01/16/2024 Start: 11-16-2023 End: 01-16-2024 CBC panel - Blood by Automated count CBC Lab Routine Benign hypertension with chronic kidney disease, stage III (HCC) Stage 3b chronic kidney disease (HCC) Hyperlipidemia, unspecified hyperlipidemia type Expected: 11/16/2023, Expires: 01/16/2024 [facility] Work Phone: Comment on above: Expected: 11/16/2023 , Expires: 01/16/2024 Start: 11-16-2023 End: 01-16-2024 Creatinine [Mass/volume] in Urine collected for unspecified duration CREATININE RANDOM UR Lab Routine Benign hypertension with chronic kidney disease, stage III (HCC) Stage 3b chronic kidney disease (HCC) Hyperlipidemia, unspecified hyperlipidemia type Expected: 11/16/2023, Expires: 01/16/2024 [facility] Work Phone: Comment on above: Expected: 11/16/2023 , Expires: 01/16/2024 Start: 11-16-2023 End: 01-16-2024 Parathyrin.intact [Mass/volume] in Serum or Plasma PTH INTACT BLD Lab Routine Benign hypertension with chronic kidney disease, stage III (HCC) Stage 3b chronic kidney disease (HCC) Hyperlipidemia, unspecified hyperlipidemia type Expected: 11/16/2023, Expires: 01/16/2024 [facility] Work Phone: Comment on above: Expected: 11/16/2023 , Expires: 01/16/2024 Start: 11-16-2023 End: 01-16-2024 Protein [Mass/volume] in Urine PROTEIN RANDOM UR Lab Routine Benign hypertension with chronic kidney disease, stage III (HCC) Stage 3b chronic kidney disease (HCC) Hyperlipidemia, unspecified hyperlipidemia type Expected: 11/16/2023, Expires: 01/16/2024 [facility] Work Phone: Comment on above: Expected: 11/16/2023 , Expires: 01/16/2024 Start: 11-16-2023 End: 01-16-2024 Renal function 2000 panel - Serum or Plasma RENAL FUNCTION PANEL Lab Routine Benign hypertension with chronic kidney disease, stage III (HCC) Stage 3b chronic kidney disease (HCC) Hyperlipidemia, unspecified hyperlipidemia type Expected: 11/16/2023, Expires: 01/16/2024 [facility] Work Phone: Comment on above: Expected: 11/16/2023 , Expires: 01/16/2024 Start: 10-22-2023 ANNUAL PCP TEAM PUBLICATIONS DISTRIBUTION CLERK JEFF DISEASE VISIT ANNUAL PCP TEAM CHRONIC DISEASE VISIT [facility] Start: 10-22-2023 BP CONTROLLED (<130/80) BP CONTROLLE D (<130/80) [facility] Start: 10-22-2023 SHINGRIX VACCINE (1 of 2) SHINGRIX VACCINE (1 of 2) [facility] Comment on above: Postponed from 04/04 (Declined at this time) Start: 10-22-2023 Urine microalbumin profile [facility] Comment on above: Postponed from 06/10 (Declined at this time) Start: 07-29-2023 HEMOGLOBIN/HEMATOCRIT HEMOGLOBIN/HEM ATOCRIT [facility] Start: 07-29-2023 SERUM CREATININE SERUM CREATININE Cl [facility] Start: 07-27-2023 End: 10-26-2023 Basic metabolic 2000 panel - Serum or Plasma BASIC METABOLIC PNL Lab Routine Paroxysmal atrial fibrillation (HCC) Expected: 07/27/2023 (Approximate), Expires: 10/26/2023 [facility] Work Phone: Comment on above: Expected: 07/27/2023 (Approximate), Expires: 10/26/2023 Start: 07-27-2023 End: 10-26-2023 CBC W Auto Differential panel - Blood CBC + DIFF Lab Routine Paroxysmal atrial fibrillation (HCC) Expected: 07/27/2023 (Approximate), Expires: 10/26/2023 [facility] Work Phone: Comment on above: Expected: 07/27/2023 (Approximate), Expires: 10/26/2023 Start: 07-27-2023 End: 10-26-2023 Magnesium [Mass/volume] in Serum or Plasma MAGNESIUM BLD Lab Routine Paroxysmal atrial fibrillation (HCC) Expected: 07/27/2023 (Approximate), Expires: 10/26/2023 [facility] Work Phone: Comment on above: Expected: 07/27/2023 (Approximate), Expires: 10/26/2023 Start: 07-27-2023 End: 02-27-2024 Radiologic exam chest 2 views XR CHEST 2V FRONTAL/LAT Radiology Routine Paroxysmal atrial fibrillation (HCC) Expected: 07/27/2023 (Approximate), Expires: 02/27/2024 [facility] Work Phone: Comment on above: Expected: 07/27/2023 (Approximate), Expires: 02/27/2024 Start: 05-17-2023 End: 05-17-2023 Patient education based on identified need [facility] Start: 02-28-2023 Advance Directive Discussion Advance Directive Discussion [facility] Start: 02-28-2023 Annual Wellness Visi t (Medicare Advantage) Annual Wellness Visit (Medicare Advantage) SHEA MCDUFFIE [facility] Start: 02-28-2023 Depression Assessment Depression Ass essment [facility] Start: 01-27-2023 End: 03-29-2023 Basic metabolic 2000 panel - Serum or Plasma BASIC METABOLIC PNL Lab Routine Paroxysmal atrial fibrillation (HCC) Hypertension, unspecified type Atherosclerotic peripheral vascular disease with intermittent claudication (HCC) Expected: 01/27/2023, Expires: 03/29/2023 [facility] Work Phone: Comment on above: Expected: 01/27/2023 , Expires: 03/29/2023 Start: 01-27-2023 End: 03-29-2023 CBC W Auto Differential panel - Blood CBC + DIFF Lab Routine Paroxysmal atrial fibrillation (HCC) Hypertension, unspecified type Atherosclerotic peripheral vascular disease with intermittent claudication (HCC) Expected: 01/27/2023, Expires: 03/29/2023 [facility] Work Phone: Comment on above: Expected: 01/27/2023 , Expires: 03/29/2023 Start: 01-27-2023 End: 03-29-2023 Magnesium [Mass/volume] in Serum or Plasma MAGNESIUM BLD Lab Routine Paroxysmal atrial fibrillation (HCC) Hypertension, unspecified type Atherosclerotic peripheral vascular disease with intermittent claudication (HCC) Expected: 01/27/2023, Expires: 03/29/2023 [facility] Work Phone: Comment on above: Expected: 01/27/2023 , Expires: 03/29/2023 Start: 01-26-2023 BP CONTROLLED (<130/80) BP CONTROLLE D (<130/80) [facility] Start: 01-21-2023 End: 03-23-2023 Lipid 1996 panel - Serum or Plasma LIPID PANEL BASIC Lab Routine Coronary artery disease involving [place] coronary artery of [place] heart without angina pectoris Expected: 01/21/2023, Expires: 03/23/2023 [facility] Work Phone: Comment on above: Expected: 01/21/2023 , Expires: 03/23/2023 Start: 11-22-2022 End: 07-29-2023 OUTSIDE VENDOR CARDIAC OUTPATIENT EXTENDED RHYTHM RECORDING (WITHOUT TELEMETRY) OUTSIDE VENDOR CARDIAC OUTPATIENT EXTENDED RHYTHM RECORDING (WITHOUT TELEMETRY) Holter Routine Paroxysmal atrial fibrillation (HCC) Hypertension, unspecified type Atherosclerotic peripheral vascular disease with intermittent claudication (HCC) Expected: 11/22/2022, Expires: 07/29/2023 [facility] Work Phone: Comment on above: Expected: 11/22/2022 , Expires: 07/29/2023 Start: 10-29-2022 Influenza vaccination [facility] Start: 10-26-2022 HEMOGLOBIN/HEMATOCRIT HEMOGLOBIN/HEM ATOCRIT [facility] Start: 10-26-2022 SERUM CREATININE SERUM CREATININE Cl [facility] Start: 10-12-2022 ANNUAL PCP TEAM PUBLICATIONS DISTRIBUTION CLERK JEFF DISEASE VISIT ANNUAL PCP TEAM CHRONIC DISEASE VISIT [facility] Start: 07-26-2022 End: 09-25-2022 Basic metabolic 2000 panel - Serum or Plasma BASIC METABOLIC PNL Lab Routine Paroxysmal atrial fibrillation (HCC) History of ST elevation myocardial infarction (STEMI) PAF (paroxysmal atrial fibrillation) (HCC) Expected: 07/26/2022, Expires: 09/25/2022 [facility] Work Phone: Comment on above: Expected: 07/26/2022 , Expires: 09/25/2022 Start: 07-26-2022 End: 09-25-2022 CBC W Auto Differential panel - Blood CBC + DIFF Lab Routine Paroxysmal atrial fibrillation (HCC) History of ST elevation myocardial infarction (STEMI) PAF (paroxysmal atrial fibrillation) (HCC) Expected: 07/26/2022, Expires: 09/25/2022 [facility] Work Phone: Comment on above: Expected: 07/26/2022 , Expires: 09/25/2022 Start: 07-26-2022 End: 09-25-2022 Magnesium [Mass/volume] in Serum or Plasma MAGNESIUM BLD Lab Routine Paroxysmal atrial fibrillation (HCC) History of ST elevation myocardial infarction (STEMI) PAF (paroxysmal atrial fibrillation) (HCC) Expected: 07/26/2022, Expires: 09/25/2022 [facility] Work Phone: Comment on above: Expected: 07/26/2022 , Expires: 09/25/2022 Start: 04-28-2022 End: 01-26-2023 OUTSIDE VENDOR CARDIAC OUTPATIENT EXTENDED RHYTHM RECORDING (WITHOUT TELEMETRY) OUTSIDE VENDOR CARDIAC OUTPATIENT EXTENDED RHYTHM RECORDING (WITHOUT TELEMETRY) Holter Routine Paroxysmal atrial fibrillation (HCC) History of ST elevation myocardial infarction (STEMI) PAF (paroxysmal atrial fibrillation) (HCC) Expected: 04/28/2022, Expires: 01/26/2023 [facility] Work Phone: Comment on above: Expected: 04/28/2022 , Expires: 01/26/2023 Start: 03-23-2022 ANNUAL PCP TEAM PUBLICATIONS DISTRIBUTION CLERK JEFF DISEASE VISIT ANNUAL PCP TEAM CHRONIC DISEASE VISIT [facility] Start: 03-23-2022 BP CONTROLLED (<130/80) BP CONTROLLE D (<130/80) [facility] Start: 02-28-2022 ADVANCE DIRECTIVE DISCUSSION ADVANCE DIRECTIVE DISCUSSION [facility] Start: 02-28-2022 DEPRESSION ASSESSMENT DEPRESSION ASS ESSMENT [facility] Start: 02-10-2022 End: 04-12-2022 Lipid 1996 panel - Serum or Plasma LIPID PANEL BASIC Lab Routine Mixed hyperlipidemia Expected: 02/10/2022 (Approximate), Expires: 04/12/2022 [facility] Work Phone: Comment on above: Expected: 02/10/2022 (Approximate), Expires: 04/12/2022 Start: 11-27-2021 Hepatitis B surface antibody level LDL CHOLESTEROL [facility] Start: 11-27-2021 SERUM CREATININE SERUM CREATININE Cl [facility] Start: 10-29-2021 Influenza vaccination INFLUENZA (#1) [facility] Start: 09-27-2021 Adult depression screening assessment DEPRESSION SCREENING [facility] Start: 09-18-2021 COVID-19 VACCINE (#1) COVID-19 VACCI NE (#1) [facility] Comment on above: Postponed from 04/04 (Declined at this time) Start: 09-18-2021 COVID-19 VACCINE (1) COVID-19 VACCIN E (1) [facility] Comment on above: Postponed from 04/04 (Declined at this time) Start: 07-29-2021 Mammography [facility] Start: 07-29-2021 Screening for malign ant neoplasm of breast Mammogram Screening [facility] Start: 07-18-2021 HEMOGLOBIN/HEMATOCRIT HEMOGLOBIN/HEM ATOCRIT [facility] Start: 03-20-2021 BP CONTROLLED (<130/80) BP CONTROLLE D (<130/80) [facility] Start: 02-28-2021 ADVANCE DIRECTIVE DISCUSSION ADVANCE DIRECTIVE DISCUSSION [facility] Start: 02-28-2021 DEPRESSION ASSESSMENT DEPRESSION ASS ESSMENT [facility] Start: 06-10-2016 DTaP/Tdap/Td vaccine (1 - Tdap) DTaP/Tdap/Td vaccine (1 - Tdap) [facility] Start: 06-10-2016 Urine microalbumin profile DTAP,TDAP,TD (1 - Tdap) [facility] Start: 2011 Respiratory Syncytia l Virus (RSV) or age 60 yrs+ (1 - 1-dose 60+ series) Respiratory Syncytial Virus (RSV) or age 60 yrs+ (1 - 1-dose 60+ series) [facility] Start: 2011 RSV Vaccine (1 - 1-d ose 60+ series) RSV Vaccine (1 - 1-dose 60+ series) [facility] Start: 2001 Screening for malign ant neoplasm of breast Breast cancer screen [facility] Start: 2001 Shingles vaccine (1 of 2) Shingles vaccine (1 of 2) [facility] Start: 2001 SHINGRIX VACCINE (1 of 2) SHINGRIX VACCINE (1 of 2) [facility] Start: 1996 COLOGUARD (FIT-DNA) COLOGUARD (FIT-D NA) [facility] Start: [address] COLONOGRAPHY [facility] Start: 1996 FECAL OCCULT BLOOD FECAL OCCULT BLOO D [facility] Start: 1996 Screening for malign ant neoplasm of colon [facility] Start: 1996 SIGMOIDOSCOPY SIGMOIDOSCOPY [facility] Start: 1969 Hepatitis C screening Hepatitis C sc reen [facility] Start: 1963 Depression Screen Depression Screen [facility] Start: 1961 Lipid panel Lipids [facility] Start: 1951 COVID-19 VACCINE (#1) COVID-19 VACCI NE (#1) [facility] End: 08-24-2023 CBC W Auto Differential panel - Blood CBC auto differential Lab Routine Tomorrow AM for 99 Occurrences starting 05/18/2023 until 08/24/2023, 2 completed [facility] Comment on above: Tomorrow AM for 99 O ccurrences starting 05/18/2023 until 08/24/2023, 2 completed End: 08-24-2023 Comprehensive Metabolic Panel w/ Reflex to MG Comprehensive Metabolic Panel w/ Reflex to MG Lab Routine Tomorrow AM for 99 Occurrences starting 05/18/2023 until 08/24/2023, 2 completed [facility] Comment on above: Tomorrow AM for 99 O ccurrences starting 05/18/2023 until 08/24/2023, 2 completed End: 12-11-2022 Ct orbit sella/post fossa/ear w/o contrast matrl CT TEMP BONES WO IVCON Radiology Routine Pulsatile tinnitus, left ear Lightheadedness 1 Occurrences starting 11/11/2021 until 12/11/2022 [facility] Work Phone: Comment on above: 1 Occurrences starti ng 11/11/2021 until 12/11/2022 End: 05-18-2023 Culture, Urine [facility] Comment on above: One Time for 1 Occur rences starting 05/18/2023 until 05/18/2023 End: 08-11-2022 ECG COMPLETE ECG COMPLETE ECG Routine Paroxysmal atrial fibrillation (HCC) 1 Occurrences starting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 of this encounter (statuses as of 09/21/2021) [facility] History of Past illness Narrative* Problem Noted [...] of this encounter (statuses as of 10/12/2021) [facility] History of Past illness Narrative* Problem Noted [...] of this encounter (statuses as of 10/27/2021) [facility] History of Past illness Narrative* Problem Noted [...] of this encounter (statuses as of 10/30/2021) [facility] History of Past illness Narrative* Problem Noted [...] of this encounter (statuses as of 11/11/2021) [facility] History of Past illness Narrative* Problem Noted [...] of this encounter (statuses as of 11/16/2021) [facility] History of Past illness Narrative* Problem Noted [...] of this encounter (statuses as of 12/08/2021) [facility] History of Past illness Narrative* Problem Noted [...] of this encounter (statuses as of 12/08/2021) [facility] History of Past illness Narrative* Problem Noted [...] of this encounter (statuses as of 12/09/2021) [facility] History of Past illness Narrative* Problem Noted [...] of this encounter (statuses as of 12/17/2021) [facility] of Past illness Narrative* Problem Noted [...] of this encounter (statuses as of 02/02/2022) [facility] History of Past illness Narrative* Problem Noted [...] of this encounter (statuses as of 03/08/2022) [facility] History of Past illness Narrative* Problem Noted [...] of this encounter (statuses as of 03/11/2022) [facility] History of Past illness Narrative* Problem Noted [...] of this encounter (statuses as of 05/27/2022) [facility] History of Past illness Narrative* Problem Noted [...] of this encounter (statuses as of 08/02/2022) [facility] History of Past illness Narrative* Problem Noted [...] of this encounter (statuses as of 10/21/2022) [facility] History of Past illness Narrative* Problem Noted [...] of this encounter (statuses as of 11/15/2022) [facility] of Past illness Narrative* Problem Noted [...] of this encounter (statuses as of 11/15/2022) [facility] of Past illness Narrative* Problem Noted [...] of this encounter (statuses as of 01/14/2023) [facility] History of Past illness Narrative* Problem Noted [...] of this encounter (statuses as of 01/28/2023) [facility] History of Past illness Narrative* Problem Noted [...] of this encounter (statuses as of 02/02/2023) [facility] History of Past illness Narrative* Problem Noted [...] of this encounter (statuses as of 02/07/2023) [facility] History of Past illness Narrative* Problem Noted [...] of this encounter (statuses as of 04/01/2023) [facility] History of Past illness Narrative* Problem Noted [...] of this encounter (statuses as of 05/20/2023) [facility]* Diagnosis Paroxysmal atrial fibrillation (HCC)- Primary Atrial fibrillation documented in this encounter [facility]* Diagnosis Paroxysmal atrial fibrillation (HCC)- Primary Atrial fibrillation Coronary artery disease involving [place] coronary artery of [place] heart without angina pectoris Hypertension, unspecified type Mixed hyperlipidemia Non-rheumatic mitral regurgitation Mitral valve disorders PVD (peripheral vascular disease) ([facility]) Peripheral vascular disease, unspecified [facility] Mixed hyperlipidemia Coronary artery disease involving [place] coronary artery of [place] heart without angina pectoris [facility] Diagnosis Tinnitus, unspecified laterality- Primary Tension-type headache, not intractable, unspecified chronicity pattern [facility] Diagnosis Tension-type headache, not intractable, unspecified chronicity pattern- Primary Tinnitus, unspecified laterality Bilateral carotid artery stenosis Occlusion and stenosis of carotid artery without mention of cerebral infarction [facility] Diagnosis PVD (peripheral vascular disease) (HCC)- Primary Peripheral vascular disease, unspecified [facility] Diagnosis Pulsatile tinnitus, left ear- Primary Lightheadedness Dizziness and giddiness Tinnitus of left ear Unspecified tinnitus Tension-type headache, not intractable, unspecified chronicity pattern [facility]* Diagnosis Tobacco abuse Tobacco use disorder [facility] Diagnosis Essential hypertension Unspecified essential hypertension documented [facility] encounter [facility]* Diagnosis 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 Carotid artery stenosis, asymptomatic, bilateral [facility] Diagnosis Paroxysmal atrial fibrillation (HCC)- [...] disease with intermittent claudication (HCC) Atherosclerosis of [place] arteries of the extremities with intermittent claudication 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 [facility] Diagnosis Encounter for Medicare annual wellness exam- Primary Routine general medical examination at a health care facility Coronary artery disease involving [place] coronary artery of [place] heart without angina pectoris Mixed hyperlipidemia Paroxysmal atrial fibrillation (HCC) Atrial fibrillation Essential hypertension Unspecified essential hypertension Atherosclerotic peripheral vascular disease with intermittent claudication (HCC) Atherosclerosis of [place] arteries of the extremities with intermittent claudication CKD (chronic kidney disease) stage 4, GFR 15-29 ml/min (HCC) Chronic kidney disease, Stage IV (severe) [facility]* Diagnosis Benign hypertension with chronic kidney disease, stage III (HCC)- Primary 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 through stage IV, or unspecified Stage 3b chronic kidney disease (HCC) Hyperlipidemia, unspecified hyperlipidemia type [facility] Diagnosis Carotid artery stenosis, asymptomatic, bilateral- Primary PVD (peripheral vascular disease) (HCC) Peripheral vascular disease, unspecified 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 [facility]* Diagnosis APPOINTMENT CANCELLED- Primary Pulsatile tinnitus, left ear [facility]* Diagnosis Essential hypertension Unspecified essential hypertension [facility] Diagnosis Paroxysmal atrial fibrillation (HCC)- Primary Atrial fibrillation 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 [facility]* Diagnosis Encounter for screening mammogram for breast cancer [facility] Diagnosis Right sided abdominal pain- Primary Abdominal pain, unspecified site Chest pain, unspecified type Right sided abdominal pain Abdominal pain, unspecified site Coronary artery disease involving [place] coronary artery of [place] heart without angina pectoris Mixed hyperlipidemia Essential hypertension Unspecified essential hypertension Acute deep vein thrombosis (DVT) of distal vein of right lower extremity (HCC) Essential hypertension Unspecified essential hypertension Coronary artery disease involving [place] coronary artery of [place] heart without angina pectoris documented [facility]* Diagnosis Medication management- Primary Encounter for long-term (current) use of other medications documented in this encounter [facility]History [facility] Present illness Narrative History of Present Illness not supported for this document type No History of Present Illness [facility] Work Phone: Patient problem outcome Narrative Includes: Evaluations & Outcomes for active Goals No Outcomes [facility] Work Phone: Reason for referral (narrative)* Outpatient Procedure (Routine) - Closed Specialty Diagnoses / Procedures Referred By Manuel preston Referred To Contact [facility] Diagnoses Paroxysmal atrial fibrillation (HCC) Procedures ECG COMPLETE ECG ROUTINE ECG W/LEAST 12 LDS W/I&R Rupesh Gu DO [address] [place] [address] [facility] [place] [id number] Referral ID Status Reason Start Date Expiration Date V isits Requested Visits Authorized [id number] Closed Auto-Generate d Referral 08/11/2021 08/11/2022 1 1 [facility] for referral (narrative)* Outpatient Procedure (Routine) - Authorized Specialty Diagnoses / Procedures Referred By Manuel preston Referred To Contact [facility] Diagnoses PVD (peripheral vascular disease) (HCC) Procedures PVR ANK PRESS [facility] NON-INVAS PHYSIOLOGIC STD EXTREMITY ART 2 LEVEL Renae German APRN.CHEESE CUTTER [address] [place] [address] [facility] [address] [address] Referral ID Status Reason Start Date Expiration Date Visits Requested Visits Authorized [id number] Authorized Auto-Generat ed Referral 10/30/2021 10/30/2022 1 1 [facility] for referral (narrative)* Outpatient Procedure (Routine) - Pending Review Specialty Diagnoses / Procedures Referred By Contac t Referred To Contact [facility] Diagnoses Paroxysmal atrial fibrillation (HCC) History of ST elevation myocardial infarction (STEMI) PAF (paroxysmal atrial fibrillation) (HCC) Procedures ECG COMPLETE ECG ROUTINE ECG W/LEAST 12 LDS W/I&[place] [address] [place] [address] [facility] [place] [address] [place] [id number] Referral ID Status Reason Start Date Expiration Date Visits Requested Visits Authorized [id number] Pending Review Auto-Generat ed Referral 01/26/2023 1 1 [facility] for referral (narrative)* Diagnostic Procedure Only (Routine) - Pending Review Specialty Diagnoses / Procedures [facility] Diagnoses Encounter for screening mammogram for breast cancer Procedures ESTHER SCREENING SCREENING MAMMOGRAPHY BI 2-VIEW [place] [address] [place] [address] [facility] [address] [place] [phone] Referral ID Status Reason Start Date Expiration Date Visits Requested Visits Authorized [id number] Pending Review Auto-Generat ed Referral 03/03/2022 04/02/2023 1 1 [facility] for referral (narrative)* Outpatient Procedure (Routine) - Pending Review Specialty Diagnoses / Procedures [facility] Diagnoses Paroxysmal atrial fibrillation (HCC) Hypertension, unspecified type Atherosclerotic peripheral vascular disease with intermittent claudication (HCC) Procedures ECG COMPLETE ECG ROUTINE ECG W/LEAST 12 LDS W/I&[place] [address] [place] [address] [facility] [place] [address] [place] [id number] Referral ID Status Reason Start Date Expiration Date Visits Requested Visits Authorized [id number] Pending Review Auto-Generat ed Referral 07/28/2022 07/28/2023 1 1 [facility] for referral (narrative)* Outpatient Procedure (Routine) - Authorized Specialty Diagnoses / Procedures Referred By Contac t Referred To Contact [facility] Diagnoses PVD (peripheral vascular disease) (HCC) Aortoiliac occlusive disease (HCC) Carotid artery stenosis, asymptomatic, bilateral Procedures US ABD AORTA COMPLETE VAS LAB DUP-SCAN AORTA IVC ILIAC VASCL/BPGS COMPLETE Sergo Tucker MD [address] [place] [address] [address] Referral ID Status Reason Start Date Expiration Date Visits Requested Visits Authorized [id number] Authorized Auto-Generat ed Referral 11/15/2022 11/15/2023 1 1 * Outpatient Procedure (Routine) - Authorized Specialty Diagnoses / Procedures Referred By Contac t Referred To Contact [facility] Diagnoses PVD (peripheral vascular disease) (HCC) Aortoiliac occlusive disease (HCC) Carotid artery stenosis, asymptomatic, bilateral Procedures PVR ANK PRESS [facility] VAS LAB NON-INVAS PHYSIOLOGIC STD EXTREMITY ART 2 LEVEL Sergo Tucker MD [address] [place] [address] [address] Referral ID Status Reason Start Date Expiration Date Visits Requested Visits Authorized [id number] Authorized Auto-Generat ed Referral 11/15/2022 11/15/2023 1 1 * Outpatient Procedure (Routine) - Authorized Specialty Diagnoses / Procedures Referred By Contac t Referred To Contact [facility] Diagnoses PVD (peripheral vascular disease) (HCC) Aortoiliac occlusive disease (HCC) Carotid artery stenosis, asymptomatic, bilateral Procedures US CAROTID ARTERIES [facility] DUPLEX SCAN EXTRACRANIAL ART COMPL BI STUDY Sergo Tucker MD [address] [address] [facility] [address] [place] [id number] Referral ID Status Reason Start Date Expiration Date Visits Requested Visits Authorized [id number] Authorized Auto-Generat ed Referral 11/15/2022 11/15/2023 1 1 [facility] for referral (narrative)* Outpatient Procedure (Routine) - Pending Review Specialty Diagnoses / Procedures Referred By Contac t Referred To Contact [facility] Diagnoses Paroxysmal atrial fibrillation (HCC) Procedures ECG COMPLETE ECG ROUTINE ECG W/LEAST 12 LDS W/I&[place] [address] [place] [address] [address] Referral ID Status Reason Start Date Expiration Date Visits Requested Visits Authorized [id number] Pending Review Auto-Generat ed Referral 01/28/2023 01/28/2024 1 1 [facility] for referral (narrative)* Diagnostic Procedure Only (Routine) - Pending Review Specialty Diagnoses / Procedures Referred By Contac t Referred To Contact [facility] Diagnoses Encounter for screening mammogram for breast cancer Procedures ESTHER SCREENING SCREENING MAMMOGRAPHY BI 2-VIEW [place] [address] [place] [address] [facility] [address] [place] [phone] Referral ID Status Reason Start Date Expiration Date Visits Requested Visits Authorized [id number] Pending Review Auto-Generat ed Referral 02/02/2023 03/03/2024 1 1 [facility] for referral (narrative)No Reason for Referral [facility] Work Phone: Review of systems Narrative - Reported Review of Systems not supported for this document type No Review of Systems [facility] Work Phone: Summary Purpose Family History No Family History Records FoundNo Family History Records FoundNo Family History Records FoundNo Family History Records FoundNo Family History Records Found Includes: Family History in patient's chart No Family History RecordedNo Family History Records FoundNo Family History Records Found Advance Directives No Advanced Directives Records FoundDocuments on File Type Date Recorded 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 Advance Directive(s) 03/28/2019 10:10 AM Advance Directive(s) 07/20/2018 10:43 AM Advance Directive(s) 07/19/2018 7:10 AM Advance Directive(s) 07/14/2018 11:46 AM Advance Directive(s) 06/09/2017 12:41 PM Documents on File Type Date Recorded 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 Advance Directive(s) 03/28/2019 10:10 AM Advance Directive(s) 07/20/2018 10:43 AM Advance Directive(s) 07/19/2018 7:10 AM Advance Directive(s) 07/14/2018 11:46 AM Advance Directive(s) 06/09/2017 12:41 PM Documents on File Type Date Recorded 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 Advance Directive(s) 07/20/2018 10:43 AM Documents on File Type Date Recorded 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 Advance Directive(s) 07/20/2018 10:43 AM [...] laterality Procedures CONSULT TO HEADACHE CLINIC OFFICE/OUTPATIENT [facility] MDM 60-74 [place] [address] [place] [address] Referral ID Status Reason Start Date Expiration Date Visits Requested Visits Authorized [id number] Pending Review PCP Requested Referral 10/12/2021 10/12/2022 1 1 Specialty Diagnoses / Procedures Referred By Contac t Referred To Contact Ent - Otolaryngology Diagnoses Tension-type headache, not intractable, unspecified chronicity pattern Tinnitus, unspecified laterality Procedures CONSULT TO ENT OFFICE/OUTPATIENT NEW HIGH MDM 60-74 [place] [address] [place] [address] Referral ID Status Reason Start Date Expiration Date Visits Requested Visits Authorized [id number] Pending Review PCP Requested Referral 10/12/2021 10/12/2022 1 1 Specialty Diagnoses / Procedures Referred By Contac t Referred To Contact CT IMAG[facility] Diagnoses Pulsatile tinnitus, left ear Lightheadedness Procedures CT TEMP BONES WO IVCON CT ORBIT SELLA/POST FOSSA/EAR W/O CONTRAST Macrina Cobian PA-C [address] [place] [address] Ct Imaging Referral ID Status Reason Start Date Expiration Date Visits Requested Visits Authorized [id number] Authorized Auto-Generat ed Referral 11/11/2021 12/11/2022 1 1 Physical Exam Physical Exam not supported for this document type No Physical Exam Recorded Additional Source Comments INFORMATION SOURCE (unrecogn ized section and content) DATE CREATED AUTHOR 08/24/2017 [facility] DATE CREATED AUTHOR AUTHOR'S ORGANIZ ATION 01/16/2022 [facility] DATE CREATED AUTHOR AUTHOR'S ORGANIZ ATION 02/26/2022 [facility] DATE CREATED AUTHOR AUTHOR'S ORGANIZ ATION 03/14/2023 [facility] DATE CREATED AUTHOR AUTHOR'S ORGANIZ ATION 05/17/2023 [facility] DATE CREATED AUTHOR AUTHOR'S ORGANIZ ATION 05/21/2023 [facility] DATE CREATED AUTHOR AUTHOR'S ORGANIZ ATION 05/23/2023 [facility] Source Comments (unrecognize d section and content) In the event this informatio n is protected by the Federal Confidentiality of Alcohol and Drug Abuse Patient Records regulations: The Federal rules restrict any use of the information to criminally investigate or prosecute any alcohol or drug abuse patient.TrihealthIn the event this information is protected by the Federal Confidentiality of Alcohol and Drug Abuse Patient Records regulations: The Federal rules restrict any use of the information to criminally investigate or prosecute any alcohol or drug abuse patient.TrihealthIn the event this information is protected by the Federal Confidentiality of Alcohol and Drug Abuse Patient Records regulations: The Federal rules restrict any use of the information to criminally investigate or prosecute any alcohol or drug abuse patient.TrihealthIn the event this information is protected by the Federal Confidentiality of Alcohol and Drug Abuse Patient Records regulations: The Federal rules restrict any use of the information to criminally investigate or prosecute any alcohol or drug abuse patient.TrihealthIn the event this information is protected by the Federal Confidentiality of Alcohol and Drug Abuse Patient Records regulations: The Federal rules restrict any use of the information to criminally investigate or prosecute any alcohol or drug abuse patient.TrihealthIn the event this information is protected by the Federal Confidentiality of Alcohol and Drug Abuse Patient Records regulations: The Federal rules restrict any use of the information to criminally investigate or prosecute any alcohol or drug abuse patient.TrihealthIn the event this information is protected by the Federal Confidentiality of Alcohol and Drug Abuse Patient Records regulations: The Federal rules restrict any use of the information to criminally investigate or prosecute any alcohol or drug abuse patient.TrihealthIn the event this information is protected by the Federal Confidentiality of Alcohol and Drug Abuse Patient Records regulations: The Federal rules restrict any use of the information to criminally investigate or prosecute any alcohol or drug abuse patient.TrihealthIn the event this information is protected by the Federal Confidentiality of Alcohol and Drug Abuse Patient Records regulations: The Federal rules restrict any use of the information to criminally investigate or prosecute any alcohol or drug abuse patient.TrihealthIn the event this information is protected by the Federal Confidentiality of Alcohol and Drug Abuse Patient Records regulations: The Federal rules restrict any use of the information to criminally investigate or prosecute any alcohol or drug abuse patient.TrihealthIn the event this information is protected by the Federal Confidentiality of Alcohol and Drug Abuse Patient Records regulations: The Federal rules restrict any use of the information to criminally investigate or prosecute any alcohol or drug abuse patient.TrihealthIn the event this information is protected by the Federal Confidentiality of Alcohol and Drug Abuse Patient Records regulations: The Federal rules restrict any use of the information to criminally investigate or prosecute any alcohol or drug abuse patient.TrihealthIn the event this information is protected by the Federal Confidentiality of Alcohol and Drug Abuse Patient Records regulations: The Federal rules restrict any use of the information to criminally investigate or prosecute any alcohol or drug abuse patient.TrihealthIn the event this information is protected by the Federal Confidentiality of Alcohol and Drug Abuse Patient Records regulations: The Federal rules restrict any use of the information to criminally investigate or prosecute any alcohol or drug abuse patient.TrihealthIn the event this information is protected by the Federal Confidentiality of Alcohol and Drug Abuse Patient Records regulations: The Federal rules restrict any use of the information to criminally investigate or prosecute any alcohol or drug abuse patient.TrihealthIn the event this information is protected by the Federal Confidentiality of Alcohol and Drug Abuse Patient Records regulations: The Federal rules restrict any use of the information to criminally investigate or prosecute any alcohol or drug abuse patient.TrihealthIn the event this information is protected by the Federal Confidentiality of Alcohol and Drug Abuse Patient Records regulations: The Federal rules restrict any use of the information to criminally investigate or prosecute any alcohol or drug abuse patient.TrihealthIn the event this information is protected by the Federal Confidentiality of Alcohol and Drug Abuse Patient Records regulations: The Federal rules restrict any use of the information to criminally investigate or prosecute any alcohol or drug abuse patient.TrihealthIn the event this information is protected by the Federal Confidentiality of Alcohol and Drug Abuse Patient Records regulations: The Federal rules restrict any use of the information to criminally investigate or prosecute any alcohol or drug abuse patient.TrihealthIn the event this information is protected by the Federal Confidentiality of Alcohol and Drug Abuse Patient Records regulations: The Federal rules restrict any use of the information to criminally investigate or prosecute any alcohol or drug abuse patient.TrihealthIn the event this information is protected by the Federal Confidentiality of Alcohol and Drug Abuse Patient Records regulations: The Federal rules restrict any use of the information to criminally investigate or prosecute any alcohol or drug abuse patient.TrihealthIn the event this information is protected by the Federal Confidentiality of Alcohol and Drug Abuse Patient Records regulations: The Federal rules restrict any use of the information to criminally investigate or prosecute any alcohol or drug abuse patient.TrihealthIn the event this information is protected by the Federal Confidentiality of Alcohol and Drug Abuse Patient Records regulations: The Federal rules restrict any use of the information to criminally investigate or prosecute any alcohol or drug abuse patient.TrihealthIn the event this information is protected by the Federal Confidentiality of Alcohol and Drug Abuse Patient Records regulations: The Federal rules restrict any use of the information to criminally investigate or prosecute any alcohol or drug abuse patient.TrihealthIn the event this information is protected by the Federal Confidentiality of Alcohol and Drug Abuse Patient Records regulations: The Federal rules restrict any use of the information to criminally investigate or prosecute any alcohol or drug abuse patient.TrihealthIn the event this information is protected by the Federal Confidentiality of Alcohol and Drug Abuse Patient Records regulations: The Federal rules restrict any use of the information to criminally investigate or prosecute any alcohol or drug abuse patient.TrihealthIn the event this information is protected by the Federal Confidentiality of Alcohol and Drug Abuse Patient Records regulations: The Federal rules restrict any use of the information to criminally investigate or prosecute any alcohol or drug abuse patient.[facility] Reason for Visit (unrecogniz ed section and [...] HIGH MDM 60-[place] [address] [place] [address] Referral ID Status Reason Start Date Expiration Date Visits Requested Visits Authorized [id number] Pending Review PCP Requested Referral 10/12/2021 10/12/2022 1 1 Reason Comments Follow Up Virtual Reason Comments Follow Up Reason Onset Date Comments Population Health Navigation Outreach 12/17/2021 Spouse of [facility] outreach pt Reason Comments F/U 6 Month Reason Onset Date Comments Refill Request 05/26/2022 Reason Comments Follow Up Reason Comments CPE (Medicare) Reason Comments Established Patient Follow Up Reason Onset Date Comments Population Health Navigation Outreach 03/31/2023 [facility] Outreach Reason Comments Chest Pain Sharp stabbing right sided chest pains starting 0300. Took 2 325mg asa when pain started. 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 Given 3 baby asa in office at 1122 and was given one nitro at 1129 with some improvement. Denies any n/v, slightly sob. Specialty Diagnoses / Procedures Referred By Manuel preston Referred To Contact Diagnoses Right sided abdominal pain Luis Estrella MD [address] [place] [address], [place] [address] [facility] [address] [place] [address] Referral ID Status Reason Start Date Expiration Date Visits Re quested Visits Authorized [id number] 1 1 Reason Comments ER/Urgent Referral Care Teams (unrecognized sec tion and content) Technical Account Manager Relationship Specialty Start Date End [place]la Monterroso MD [id number] [place] [address] PCP - General Internal Medicine 01/30/19 Janey Patricia DO [address] [place] [address] Primary Staff Physician Nephrology 03/26/21 Technical Account Manager Relationship Specialty Start Date End Date Kayla Monterroso MD [address] [place] [address] PCP - General Internal Medicine 01/30/19 Janey Patricia DO [address] [place] [address] Primary Staff Physician Nephrology 03/26/21 Technical Account Manager Relationship Specialty Start Date End Date Kayla Monterroso MD [address] [place] [address] PCP - General Internal Medicine 01/30/19 Janey Patricia DO [address] [place] [address] Primary Staff Physician Nephrology 03/26/21 Technical Account Manager Relationship Specialty Start Date End Date Kayla Monterroso MD [address] [place] [address] PCP - General Internal Medicine 01/30/19 Janey Patricia DO [address] [place] [address] Primary Staff Physician Nephrology 03/26/21 Technical Account Manager Relationship Specialty Start Date End Date Kayla Monterroso MD [address] [place] [address] PCP - General Internal Medicine 01/30/19 Janey Patricia, [address] [place] [address] Primary Staff Physician Nephrology 03/26/21 Technical Account Manager Relationship Specialty Start [place] [address] [place] [address] PCP - General Internal Medicine 01/30/19 Janey Patricia, [address] [place] [address] Primary Staff Physician Nephrology 03/26/21 Technical Account Manager Relationship Specialty Start Date End Date Kayla Monterroso MD [id number] [place] [address] PCP - General Internal Medicine 01/30/19 Janey Patricia DO [address] [place] [address] Primary Staff Physician Nephrology 03/26/21 Technical Account Manager Relationship Specialty Start Date End Date Kayla Monterroso MD [id number] [place] [address] PCP - General Internal Medicine 01/30/19 Janey Patricia, [address] [place] [address] Primary Staff Physician Nephrology 03/26/21 Technical Account Manager Relationship Specialty Start Date End Date Kayla Monterroso MD [id number] [place] [address] PCP - General Internal Medicine 01/30/19 Janey Patricia DO [address] [place] [address] Primary Staff Physician Nephrology 03/26/21 Technical Account Manager Relationship Specialty Start [place] [address] [place] [address] PCP - General Internal Medicine 01/30/19 Janey Patricia DO [address] [place] [address] Primary Staff Physician Nephrology 03/26/21 Technical Account Manager Relationship Specialty Start Date End Date Kayla Monterroso MD [id number] [place] [address] PCP - General Internal Medicine 01/30/19 Janey Patricia DO [address] [place] [address] Primary Staff Physician Nephrology 03/26/21 Technical Account Manager Relationship Specialty Start Date End Date Kayla Monterroso MD [address] [place] [address] PCP - General Internal Medicine 01/30/19 Janey Patricia DO [address] [place] [address] Primary Staff Physician Nephrology 03/26/21 Technical Account Manager Relationship Specialty Start Date End Date Kayla Monterroso MD [address] [place] [address] PCP - General Internal Medicine 01/30/19 Janey Patricia DO [address] [place] [address] Primary Staff Physician Nephrology 03/26/21 Technical Account Manager Relationship Specialty Start Date End Date Kayla Monterroso MD [address] [place] [address] PCP - General Internal Medicine 01/30/19 Janey Patricia DO [address] [place] [address] Primary Staff Physician Nephrology 03/26/21 Technical Account Manager Relationship Specialty Start [place] [address] [place] [address] PCP - General Internal Medicine 01/30/19 Janey Patricia DO [address] [place] [address] Primary Staff Physician Nephrology 03/26/21 Technical Account Manager Relationship Specialty Start [place] [address] [place] [address] PCP - General Internal Medicine 01/30/19 Janey Patricia DO [address] [place] [address] Primary Staff Physician Nephrology 03/26/21 Technical Account Manager Relationship Specialty Start [place] [address] [place] [address] PCP - General Internal Medicine 01/30/19 Janey Patricia DO [address] [place] [address] Primary Staff Physician Nephrology 03/26/21 Technical Account Manager Relationship Specialty Start [place] [address] [place] [address] PCP - General Internal Medicine 01/30/19 Janey Patricia DO [address] [place] [address] Primary Staff Physician Nephrology 03/26/21 Technical Account Manager Relationship Specialty Start [place] [address] [place] [address] PCP - General Internal Medicine 01/30/19 Janey Patricia DO [address] [place] [address] Primary Staff Physician Nephrology 03/26/21 Technical Account Manager Relationship Specialty Start [place] [address] [place] [address] PCP - General Internal Medicine 01/30/19 Janey Patricia DO [address] [place] [address] Primary Staff Physician Nephrology 03/26/21 Technical Account Manager Relationship Specialty Start [place] [address] [place] [address] PCP - General Internal Medicine 01/30/19 Jnaey Patricia DO [address] [place] [address] Primary Staff Physician Nephrology 03/26/21 Technical Account Manager Relationship Specialty Start [place] [address] [place] [address] PCP - General Internal Medicine 05/18/23 Ordered [...] BE BASED ON THE PRIMARY CLINICAL RECORDS. [facility] [employer] [facility]. provides no warranty or guarantee of the accuracy or completeness of information in this document.
[2023-05-26 05:13] LABS: Magnesium 1.9 mg/dL (1.8-2.4)
--- NOTE | 2023-05-26 08:21 | CA_ITS ---
Patient Name: NEELAM VIRAMONTES MR#: [id number] : 1950 Exam Date: 05/26/2023 Ordering Doctor: GARCIA BLUNT . ECHOCARDIOGRAM REPORT PROCEDURE: CA ECHO DOPPLER COMPLETE INDICATIONS: persistent Afib, elevated BNP, hypertension, h/o OK, cardiac stent COMPARISON: None. DESCRIPTION: COMPLETE ECHOCARDIOGRAM Real-time transthoracic echocardiography with 2D, M-mode, spectral and color flow Doppler performed. QUALITY: Technical quality was good. 62 , 135#, BSA 1.62 m2, BP 118/75 LEFT VENTRICLE: Normal chamber size. Thickened septal wall. LV EF: Global left ventricular systolic function is normal; visually estimated ejection fraction is 55 to 60%. No obvious wall motion abnormalities. DIASTOLIC: Not adequately assessed due to heart rhythm. ATRIAL SEPTUM: Inadequately seen. LEFT ATRIUM: Mild dilatation. RIGHT ATRIUM: Mild dilatation. RIGHT VENTRICLE: Normal chamber size. Normal right ventricular systolic function. TRICUSPID VALVE: Normal mobility and thickness. No stenosis with mild regurgitation. Doppler studies reveal moderately (45-60) elevated right sided pressures. RVSP 48 mmHg MITRAL VALVE: Mildly thickened with normal mobility. There is no mitral annular calcification. Moderate mitral regurgitation. AORTIC VALVE: Normal trileaflet appearance. Normal leaflet mobility. No evidence of aortic valve stenosis. Multifocal calcification. No aortic regurgitation. AORTIC ROOT: Normal diameter and appearance. PULMONIC VALVE: Normal thickness and mobility. No stenosis. No regurgitation. PERICARDIUM: No evidence of pericardial effusion. IVC: IVC is normal in size, does not fully collapse. CONCLUSION: 1. Global left ventricular systolic function is normal; visually estimated ejection fraction is 55 to 60% 2. Normal right ventricular size and systolic function 3. Biatrial enlargement 4. Mild tricuspid regurgitation 5. Moderately elevated right ventricular systolic pressure; RVSP 48 mmHg 6. Moderate mitral regurgitation Adult Echocardiography Procedure Report Left Ventricle LVEDD (3.7 - 5.6 cm): 3.46 cm LVESD (2.2 - 4.0 cm): 2.31 cm LVIVS thickness (0.6 - 1.2 cm): 1.06 cm LVPW thickness (0.5 - 1.0 cm): 0.67 cm LVOT Max Gradient: 4.09 mm[Hg], 3.18 mm[Hg] LVOT Area (cm2): 0.95 m/s Peak Velocity (LVOT): 1.01 m/s, 0.89 m/s Mean Velocity (LVOT): 0.68 m/s LVOT Diameter 2.13 cm Left Atrium LA Volume Index (2D A2C): 37.85 ml/m2 Left Atrium Systolic Dimension: 3.07 cm Mitral Valve Mitral Valve E-Wave Peak Velocity: 1.40 m/s Right Ventricle Aorta AO Root Diam: 3.03 cm Ascending Ao Diam: 2.89 cm Aortic Valve AoV Area (Peak Roger): 2.40 cm2, 2.24 cm2, 2.52 cm2 AoV Area (VTI): 2.19 cm2, 1.95 cm2, 2.46 cm2 Peak Velocity(Antegrade Flow): 1.61 m/s, 1.26 m/s, 1.37 m/s, 1.61 m/s, 1.26 m/s, 1.37 m/s Peak Gradient(Antegrade Flow): 10.38 mm[Hg], 6.39 mm[Hg], 7.50 mm[Hg], 10.38 mm[Hg], 6.39 mm[Hg], 7.50 mm[Hg] Mean Velocity(Antegrade Flow): 1.02 m/s, 0.88 m/s, 0.86 m/s, 1.02 m/s, 0.88 m/s, 0.86 m/s Mean Gradient(Antegrade Flow): 4.91 mm[Hg], 3.51 mm[Hg], 3.46 mm[Hg], 4.91 mm[Hg], 3.51 mm[Hg], 3.46 mm[Hg] Velocity Time Integral: 28.85 cm, 19.85 cm, 23.30 cm, 28.85 cm, 19.85 cm, 23.30 cm Tricuspid Valve Peak Velocity (Regurgitant Flow): 2.86 m/s, 3.16 m/s Pulmonic Valve Mean Gradient: 2.76 mm[Hg], 2.28 mm[Hg], 2.34 mm[Hg], 3.00 mm[Hg] Mean Velocity: 0.77 m/s, 0.71 m/s, 0.72 m/s, 0.83 m/s Peak Velocity: 1.14 m/s Peak Gradient: 6.64 mm[Hg], 4.38 mm[Hg], 4.76 mm[Hg], 5.08 mm[Hg] Right Atrium Right Atrium Systolic Pressure: 26.03 ml, 26.03 ml Dictated by: Bill Lagunas M.D. on 05/26/2023 at 15:37 Approved by: Bill Lagunas M.D. on 05/26/2023 at 15:40
[2023-05-26] MEDS: NAPROXEN 250 MG TABLET PO (08:24)
[2023-05-26] MEDS: APIXABAN 5 MG TABLET 2.5 MG PO ×2 (08:25→20:10)
[2023-05-26] MEDS: OMEPRAZOLE 40 MG CAPSULE.DR PO (08:25)
[2023-05-26] MEDS: CARVEDILOL 6.25 MG TABLET PO ×2 (08:26→20:10)
[2023-05-26] MEDS: DOXAZOSIN MESYLATE 2 MG TABLET PO ×2 (08:26→21:45)
--- NOTE | 2023-05-26 09:00 | PM.HP ---
HPI H&P: HPI History of Present Illness Chief complaint: fast and irregular heart Narrative: patient is a 73-year-old female with past medical history of paroxysmal atrial fibrillation, CAD, HTN, Femoral Artery stenosis, Chronic Kidney disease. Admitted at [facility] last week and started on amiodarone? continued on Coreg. She was admitted here over the weekend Tuesday to Tuesday, HR was controlled on coreg and amiodarone and she was started on Eliquis 2.5mg BID and discharged with close follow up with her Real Estate Assessor, Dr. Paul from [facility]. She was actually suppose to have her follow up appt today at 3pm. I called and spoke with Dr. Paul today. Her anticoagulation was stopped awhile go due to renal hemorrhage but that has resolved and she was was in Normal sinus rhythm until recently. He agreed with the need for anticoagulation now. He also asked about an amiodarone load and I said I was uncertain if she had a load at [place] but was not mentioned in her D/C summary. He suggested that our Cardiology team see her and possibly consider amiodarone load. Cardizem did not help this time. Echo ordered and pending. She presented back to the ER last night with left sided chest pain and fast heart rate that woke her from sleep. HR in the ER was 110's, given Cardizem which improved rate but not rhythm she is still in Afib but rate controlled, She continues Eliquis. She is having some left sided discomfort but not pain. Troponin and proBNP normal range, thyroid studies and Lipids, ha1c all normal range. Cardiology consult today, echo. Opioid HPI Opioid Management Most Recent Opioid Data: Last Pain Scale 6 05/26/23 09:15 Last Pain Assessment 05/26/23 11:17 Last ED Pain Assessment 05/26/23 02:11 Last MAR Pain Assessment 05/22/23 01:00 Last ORT Total Score 0 05/26/23 05:07 Last ORT Risk Category Low Risk 05/26/23 05:07 Review of Systems ROS Narrative ROS: a complete review of systems were reviewed with patient and are positive as below or listed in History of Chief Complaint. General: no fever, chills, night sweats Head: no headache, trauma, visual changes, nausea or vomiting Skin: no reported rashes, itching or sores Eyes: no blurriness of vision Ears: no reported hearing loss, vertigo, earache, or tinnitus Throat: no sore throat, hoarseness, swelling of neck, or tongue pain Heart: chest pain Lungs: no shortness of breath or cough GI: no diarrhea or vomiting/nausea Urinary: no urinary urgency, frequency or pain Neuro: no numbness or tingling HEM: no bleeding issues or bruising ENDO: no thyroid problems Psych: no anxiety or depression PFSH PFSH Medical History (Updated 05/26/23 @ 12:08 by Padmini Harrison DO) CAD (coronary artery disease), [place] coronary artery ?I25.10 - Atherosclerotic heart disease of [place] coronary artery without angina pectoris (ICD-10) GERD (gastroesophageal reflux disease) ?K21.9 - Gastro-esophageal reflux disease without esophagitis (ICD-10) Hypertension ?I10 - Essential (primary) hypertension (ICD-10) 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 - Unspecified atherosclerosis of [place] arteries of extremities, unspecified extremity (ICD-10) History of heart attack ?I25.2 - Old myocardial infarction (ICD-10) Abnormal colonoscopy ?R93.3 - Abnormal findings on diagnostic imaging of other parts of digestive tract (ICD-10) Colon polyp ?K63.5 - Polyp of colon (ICD-10) Surgical History H/O tubal ligation ?Z98.51 - Tubal ligation status (ICD-10) Hx of tonsillectomy ?Z90.89 - Acquired absence of other organs (ICD-10) Social History Within the past year, how often did you have a drink containing alcohol: never Score interpretation: A score less than 3 is consistent with normal alcohol consumption. Smoking status: Former smoker Non-prescribed substance use: denies use Previous occupational history: retired Highest level of school completed/degree received: 10th grade Meds Home Medications and Allergies Home Medications ?Medication ?Instructions ?Recorded ?Confirmed ?Type doxazosin 2 mg tablet 2 mg PO BID 04/26/23 05/26/23 History hydralazine 50 mg tablet 50 mg PO Q8H 04/26/23 05/26/23 History rosuvastatin 20 mg tablet 20 mg PO .QHS 04/26/23 05/26/23 History pantoprazole 40 mg tablet,delayed 40 mg PO DAILY 05/20/23 05/26/23 History release amiodarone 200 mg tablet (Pacerone) 200 mg PO DAILY 30 days #30 tabs 05/22/23 05/26/23 Rx apixaban 5 mg tablet (Eliquis) 2.5 mg (1/2 x 5 mg) PO BID 30 days 05/22/23 05/26/23 Rx #30 tabs carvedilol 6.25 mg tablet 6.25 mg PO Q12H 30 days #60 tabs 05/22/23 05/26/23 Rx naproxen 250 mg tablet 250 mg PO Q12H 05/26/23 05/26/23 History Allergies Allergy/AdvReac Type Severity Reaction Status Date / Time No Known Drug Allergies Allergy Verified 04/26/23 00:08 Exam Narrative Exam Narrative: General: Patient is alert, and oriented to person, place and time with normal affect, proper hygiene, just appears tired Skin: no visible rashes, or ulcers Head: atraumatic, acephalic Eyes: PERRLA, no nystagmus present, conjunctiva clear, no scleral icterus Ears: normal gross auditory acuity Nose: symmetric, no discharge, no maxillary or frontal sinus tenderness Mouth/Throat: no erythema, exudate, or tonsillar enlargement, normal dentition Heart: abnormal rate and rhythm, no murmurs/rubs/gallops Lungs: no audible wheezes, crackles and normal breath sounds all lung shaw Abdomen: Normal audible bowel sounds, no distension, No palpable masses, no organomegaly, no rebound/guarding/ or rigidity Musculoskeletal: no swelling bilateral lower extremities Neuro: CN II-X grossly intact Constitutional Vital Signs, click to edit/add: Last Vital Signs Temp 98.1 F 05/26/23 05:03 Pulse 92 H 05/26/23 08:01 Resp 20 05/26/23 05:08 BP 118/75 05/26/23 08:29 Pulse Ox 95 05/26/23 05:08 O2 Del Method Room Air 05/26/23 05:08 Results Labs Labs: Short CBC 05/26/23 Range/Units 02:02 WBC 8.2 (4.0-11.0) 10^3/uL Hgb 8.7 L (12.0-16.0) g/dL Hct 27.4 L (36.0-48.0) % Plt Count 262 (150-450) 10^3/uL BMP 05/26/23 02:02 Sodium 140 Potassium 4.2 Chloride 107 Carbon Dioxide 22.0 BUN 48.0 H Creatinine 1.64 H Glucose 107 H Calcium 8.6 Liver Function 05/26/23 Range/Units 02:02 Total Bilirubin 0.5 (0.2-1.0) mg/dL AST 21 (15-37) U/L ALT 24 (14-59) U/L Alkaline Phosphatase 125 H (46-116) U/L Albumin 2.2 L (3.4-5.0) g/dL Assessment and Plan Assessment and Plan (1) Persistent atrial fibrillation with rapid ventricular response: Assessment and Plan: continue eliquis 2.5mg BID. Echocardiogram and formal Cards consult today. Continue coreg, holding amiodarone as may give loading dose. I appears as if shes had 200mg daily for 6 days so 1200mg with 2 extra doses, so 1600mg total since it was filled on 05/20/23 (2) Chest pain: Assessment and Plan: Echo today, will need a stress test soon as well. Qualifiers: Chest pain type: unspecified Qualified Code(s): R07.9 - Chest pain, unspecified (3) CAD (coronary artery disease), [place] coronary artery: Assessment and Plan: continue rosuvastatin (4) GERD (gastroesophageal reflux disease): Assessment and Plan: continue protonix Qualifiers: Esophagitis presence: esophagitis presence not specified Qualified Code(s): K21.9 - Gastro-esophageal reflux disease without esophagitis (5) Hypertension: Assessment and Plan: continue coreg and hydralazine Qualifiers: Hypertension type: primary hypertension Qualified Code(s): I10 - Essential (primary) hypertension (6) Femoral artery stenosis: Assessment and Plan: has iliac stent Plan Patient is a full code continue eliquis I have a high level of suspicion that Echo will be abnormal or she will clinically worsen and will require possible urgent cardiology intervention so I am making her inpatient status today.
--- NOTE | 2023-05-26 09:24 | CM.NOTE ---
Medicare Outpatient Observation Notice reviewed and discussed with patient. Pt. verbalized understanding and signed the form. Original given to patient and copy placed in patient?s chart.
--- NOTE | 2023-05-26 11:28 | CM.NOTE ---
Rounded with Dr. Harrison. To have echo today & cardiology to be consulted. Probable no discharge home today. Patient had questions regarding some extra care at home. [employer] spoke to Fadia Mendes, social sciences professor and she will speak to patient regarding options.
--- NOTE | 2023-05-26 11:55 | SWNOTE1 ---
TANNER met with pt to discuss dc needs. Pt lives at home with her boyfriend. She voices she is independent at home. She voiced she does not really drive anymore, if they go anywhere her boyfriend does the driving. She was requesting a home health nurse for medication management and monitoring vitals/blood pressure. Pt did also ask about someone to assist with cleaning up, laundry, dishes, etc. TANNER advised home health does not do that, but SW has list of private caregivers. SW did let pt know this is a list of people and companies that do offer help in the home, but you have to pay for it. SW let her know that insurance does not cover so pt will have to call and set it up. Pt voices understanding. She would like list. TANNER did provide pt with a private caregiver list. TANNER did review medicare.gov star rating list of home health agencies with pt. Pt has [employer] and not all companies take her insurance. She does not have a preference. Referral sent to [facility]. Referral included face sheet, ED note, H&P, Case management referral report.
--- NOTE | 2023-05-26 13:26 | SWNOTE1 ---
[facility] is able to accept, they just need PCP. TANNER spoke with pt and pt provided PCP. PCP is Dr. Kayla Zurita out of [place]. TANNER let [facility] know.
[2023-05-26] MEDS: AMIODARONE IN DEXTROSE,ISO-OSM 360 MG/200 ML PLAST..BAG 33 MG IV (13:36)
[2023-05-26] MEDS: AMIODARONE IN DEXTROSE,ISO-OSM 360 MG/200 ML PLAST..BAG 16 MG IV ×2 (16:19→21:47)
--- NOTE | 2023-05-26 16:30 | ECG_ITS ---
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
--- NOTE | 2023-05-26 16:42 | P.CACN_ITS ---
History of Present Illness History of Present Illness Consult date: 05/26/23 Requesting physician: Padmini Harrison Consult reason: atrial fibrillation Chief complaint: fast and irregular heart Narrative: Patient is a 73 y/o F with PMHx of paroxysmal a.fib CAd s/p stenting in 2009 per pt, HTN, PAD s/p iliac artery stent, CKD, who presented to [facility] with c/o chest pain that woke her up in the middle of the night. She had been to [facility] last week for a similar complaint and she was re-started on amiodarone. Further chart review notes she received IVD amio for about 2 days before converting to PO. She was in [facility] ER 3 days ago, again for a.fib with RVR. She self converted with IV cardizem. She was also resumed on Eliquis this past weekend. It was previously held due a spontaneous renal hemorrhage. During exam, patient states she has almost constant left sided achiness in her chest that worsens with palpation and movement. She cannot bare weight on her left arm without feeling discomfort in her shoulder/chest. Leading up to her recent episodes of a.fib, she had not been experiencing any chest pain, dyspnea, dizziness/LH, palpitations. She notes some intermittent leg swelling. She current feels bloated and notes that she gained a few pounds since just a few days prior. Review of Systems ROS Status of ROS 10 or more systems reviewed and unremark able except as noted in history and below Constitutional Reports: chills and change in weight Cardiovascular Reports: chest pain and edema [facility] Medical History (Updated 05/26/23 @ 12:08 by Padmini Harrison, DO) CAD (coronary artery disease), [place] coronary artery ?I25.10 - Atherosclerotic heart disease of [place] coronary artery without angina pectoris (ICD-10) GERD (gastroesophageal reflux disease) ?K21.9 - Gastro-esophageal reflux disease without esophagitis (ICD-10) Hypertension ?I10 - Essential (primary) hypertension (ICD-10) 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 - Unspecified atherosclerosis of [place] arteries of extremities, unspecified extremity (ICD-10) History of heart attack ?I25.2 - Old myocardial infarction (ICD-10) Abnormal colonoscopy ?R93.3 - Abnormal findings on diagnostic imaging of other parts of digestive tract (ICD-10) Colon polyp ?K63.5 - Polyp of colon (ICD-10) Surgical History H/O tubal ligation ?Z98.51 - Tubal ligation status (ICD-10) Hx of tonsillectomy ?Z90.89 - Acquired absence of other organs (ICD-10) Social History Within the past year, how often did you have a drink containing alcohol: never Score interpretation: A score less than 3 is consistent with normal alcohol consumption. Smoking status: Former smoker Non-prescribed substance use: denies use Previous occupational history: retired Highest level of school completed/degree received: 10th grade Meds Home Medications and Allergies Home Medications ?Medication ?Instructions ?Recorded ?Confirmed ?Type doxazosin 2 mg tablet 2 mg PO BID 04/26/23 05/26/23 History hydralazine 50 mg tablet 50 mg PO Q8H 04/26/23 05/26/23 History rosuvastatin 20 mg tablet 20 mg PO .QHS 04/26/23 05/26/23 History pantoprazole 40 mg tablet,delayed 40 mg PO DAILY 05/20/23 05/26/23 History release amiodarone 200 mg tablet (Pacerone) 200 mg PO DAILY 30 days #30 tabs 05/22/23 05/26/23 Rx apixaban 5 mg tablet (Eliquis) 2.5 mg (1/2 x 5 mg) PO BID 30 days 05/22/23 05/26/23 Rx #30 tabs carvedilol 6.25 mg tablet 6.25 mg PO Q12H 30 days #60 tabs 05/22/23 05/26/23 Rx naproxen 250 mg tablet 250 mg PO Q12H 05/26/23 05/26/23 History Allergies Allergy/AdvReac Type Severity Reaction Status Date / Time No Known Drug Allergies Allergy Verified 04/26/23 00:08 Exam Constitutional Vital Signs, click to edit/add: Last Vital Signs Temp 97.9 F 05/26/23 16:03 Pulse 66 05/26/23 16:03 Resp 18 05/26/23 16:03 BP 100/62 05/26/23 16:21 Pulse Ox 94 L 05/26/23 16:03 O2 Del Method Room Air 05/26/23 16:03 Documenting provider has reviewed patient's vital signs: yes Common normals: no apparent distress, oriented x3, no limitations and alert HENMT Common normals: normocephalic, head/scalp atraumatic, hearing grossly normal bilaterally, external ears normal, external nose normal and moist oral mucous membranes Eye Common normals: EOMs intact bilaterally and conjunctivae normal Neck & C-Spine Common normals: full ROM and supple Chest Common normals: inspection of chest normal Chest: other (tenderness with palpation to left chest ) Respiratory Common normals: normal respiratory effort, no retractions, no use of accessory muscles and clear to auscultation bilaterally Cardio Common normals: no JVD, regular rate, regular rhythm, S1 normal heart sound and S2 normal heart sound GI Common normals: Normal to inspection, nondistended, normoactive bowel sounds present and soft to palpation Extremity Common normals: full ROM General: edema (trace BLE edema) Neuro Common normals: oriented x3, CN's II-XII intact bilaterally and moves all extremities Psych Common normals: mental status grossly normal and cooperative Results Labs and Meds Lab results: Cardiac Enzymes 05/26/23 Range/Units 02:02 AST 21 (15-37) U/L CBC 05/26/23 Range/Units 02:02 WBC 8.2 (4.0-11.0) 10^3/uL RBC 2.87 L (4.20-5.40) 10^6/uL Hgb 8.7 L (12.0-16.0) g/dL Hct 27.4 L (36.0-48.0) % Plt Count 262 (150-450) 10^3/uL Neut # (Auto) 5.8 (1.4-6.5) 10^3/uL Lymph # (Auto) 1.0 L (1.2-3.8) 10^3/uL [place] # (Auto) 0.8 (0.3-0.8) 10^3/uL Eos # (Auto) 0.5 (0.0-0.7) 10^3/uL Baso # (Auto) 0.0 (0.0-0.1) 10^3/uL Comprehensive Metabolic Panel 05/26/23 Range/Units 02:02 Sodium 140 (136-145) mmol/L Potassium 4.2 (3.5-5.1) mmol/L Chloride 107 (98-107) mmol/L Carbon Dioxide 22.0 (21.0-32.0) mmol/L BUN 48.0 H (7.0-18.0) mg/dL Creatinine 1.64 H (0.55-1.02) mg/dL Glucose 107 H (74-106) mg/dL Calcium 8.6 (8.5-10.1) mg/dL AST 21 (15-37) U/L ALT 24 (14-59) U/L Alkaline Phosphatase 125 H (46-116) U/L Total Protein 6.0 L (6.4-8.2) g/dL Albumin 2.2 L (3.4-5.0) g/dL Intake and Output 05/26/23 05/26/23 05/26/23 07:59 15:59 23:59 Intake Total 1011.583 / 1011.583 38.417 / 129.167 90.75 / 129.167 Balance 1011.583 / 1011.583 38.417 / 129.167 90.75 / 129.167 Intake: IV 1011.583 / 1011.583 38.417 / 129.167 90.75 / 129.167 0.9 % Sodium Chloride 1,000 ml 1000 / 1000 @ 500 mls/hr IV .Q2H ONE Rx#: [id number] Amiodarone in Dextrose,Iso-Osm 90.75 / 90.75 360 mg In 200 ml @ 33 mls/hr IV Q6H ONE Rx#:[id number] dilTIAZem HCL 125 mg In 0.9 % 11.583 / 11.583 38.417 / 38.417 Sodium Chloride 100 ml @ 5 MG/ HR 5 mls/hr IV TITR ONE Rx#: [id number] Other: # Voids 1 Weight 61.3 kg Imaging and Cardiology Echo: report reviewed (ECHO today - preserved LVEF, elevated RVSP at 48) ECG results: image reviewed Assessment and Plan Assessment and Plan (1) Persistent atrial fibrillation with rapid ventricular response: (2) Chest pain: Qualifiers: Chest pain type: unspecified Qualified Code(s): R07.9 - Chest pain, unspecified (3) CAD (coronary artery disease), [place] coronary artery: (4) GERD (gastroesophageal reflux disease): Qualifiers: Esophagitis presence: esophagitis presence not specified Qualified Code(s): K21.9 - Gastro-esophageal reflux disease without esophagitis (5) Hypertension: Qualifiers: Hypertension type: primary hypertension Qualified Code(s): I10 - Essential (primary) hypertension (6) Femoral artery stenosis: Plan #Paroxysmal a.fib -Cardiology was consulted for assistance with management of her a.fib. She typically follows with cardiology at [facility]. -She has a hx of PAF and was previously managed on amiodarone but this was discontinued due to c/o hair loss. She was also taken off of AC due to a spontaneous renal hematoma that she has since recovered from. -She has been in [facility] along with [facility] within the past 2 weeks for episodes of a.fib. -She was restarted on amio when she was at [facility] last week. She rec eived about 2 days of IVD loading of amio before being discharged on 200mg daily. This past weekend she was resumed back on Eliquis. -Today patient remained in a.fib. We started her on a amiodarone gtt at 1mg/min. I saw her later this afternoon and she had converted to SR. Her BP is borderline hypotensive and I advised to reduce the dose to 0.5mg/min. Recommend to continue amio gtt overnight if her BP allows and convert back to PO 200mg at discharge tomorrow. -She should have follow-up with her primary electric meter tester shop to determine the next plans for management of her a.fib. Ablation vs PPM + AVN ablation. Also recommend she be considered for an LAAO device such as WATCHMAN or Amulet in light of her spontaneous bleed while on AC. Information provided to patient. -Continue Eliquis at this time as long as patient tolerates it. Recommend follow-up CBC in 1 week after discharge. #Chest pain -Troponin negative -ECHO shows preserved LVEF, no RWMA -CP is reproducible with palpation and movement, likely musculoskeletal. Continue supportive measures per primary team. #Pulmonary HTN -RVSP 48 per ECHO today which may be due to some fluid overload as she has some mild leg edema on exam. She also c/o feeling bloated and gaining a few pounds in the last couple of days. -Will give some IV lasix 20mg BID. #CAD s/p PCI 2009 -Continue rosuvastatin, BB, on AC so no ASA at this time #HTN -Controlled -Hold hydralazine while on amio gtt to avoid hypotension #Mitral regurg -Moderate per ECHO today -Plan for routine ECHOs with her primary electric meter tester shop Please let us know if any further questions or concerns. Thank you! Charlene Vizcaino APRN-[employer] [facility]
[2023-05-26] MEDS: FUROSEMIDE 20 MG/2 ML VIAL IV (20:11)
[2023-05-27] VITALS (57 sets, daily range): BP systolic 94–151; BP diastolic 47–82; PULSE 61–81; TEMP 36.9
[2023-05-27 05:22] LABS: Basophils Percent Auto 0.4 % (0.2-2.0); Eosinophils Absolute Auto 0.5 10^3/uL (0.0-0.7); Eosinophils Percent Auto 5.9 % (0.9-7.0); Hemoglobin 7.3 g/dL (12.0-16.0); Immature Granulocytes Abs Auto 0.07 10^3/uL (0.00-0.03); Immature Granulocytes Pct Auto 0.8 % (0.0-0.5); Lymphocytes Absolute Auto 1.3 10^3/uL (1.2-3.8); Lymphocytes Percent Auto 14.6 % (20.5-60.0); Mean Corpuscular HGB Conc 31.5 g/dL (29.9-35.2); Mean Corpuscular Hemoglobin 30.9 pg (26.7-34.0); Mean Corpuscular Volume 98.3 fL (81.0-99.0); Mean Platelet Volume 10.2 fL (9.5-13.5); Monocytes Absolute Auto 0.8 10^3/uL (0.3-0.8); Monocytes Percent Auto 8.5 % (1.7-12.0); Neutrophils Absolute Auto 6.3 10^3/uL (1.4-6.5); Neutrophils Percent Auto 69.8 % (43.0-75.0); Platelet Count 244 10^3/uL (150-450); Red Blood Count 2.36 10^6/uL (4.20-5.40); Red Cell Distribution Width 14.5 % (11.0-15.0)
[2023-05-27 05:44] LABS: Hematocrit 23.2 % (36.0-48.0)
[2023-05-27 06:41] LABS: Alanine Aminotransferase 22 U/L (14-59); Albumin Globulin Ratio 0.4; Albumin Level 1.6 g/dL (3.4-5.0); Alkaline Phosphatase 107 U/L (46-116); Anion Gap 19.7; Aspartate Amino Transferase 18 U/L (15-37); Bilirubin Total 0.4 mg/dL (0.2-1.0); Carbon Dioxide 18.1 mmol/L (21.0-32.0); Chloride 105 mmol/L (98-107); Estimated GFR (African America 28 (>=60); Estimated GFR (Non-African Ame 23 (>=60); Globulin 3.6 g/dL; Glucose 105 mg/dL (74-106); Potassium 4.8 mmol/L (3.5-5.1); Sodium 138 mmol/L (136-145); Total Protein 5.2 g/dL (6.4-8.2); Troponin I High Sensitivity 8.8 pg/mL (4.0-51.3)
--- NOTE | 2023-05-27 07:59 | PM.DS1 ---
DS: Providers Provider Date of admission: 05/26/23 12:20 Primary care physician: Non-Staff PhysicianMD Attending physician on admission: Padmini Harrison Consults: 05/26/23 12:17 Consult to Cardiology Routine Reason for consultation: persistent symptomatic Afib Has provider been notified: Yes Discharging clinician: Padmini Harrison DS: Diagnosis Discharge Diagnosis (1) Persistent atrial fibrillation with rapid ventricular response: (2) Chest pain: Qualifiers: Chest pain type: unspecified Qualified Code(s): R07.9 - Chest pain, unspecified (3) CAD (coronary artery disease), [place] coronary artery: (4) GERD (gastroesophageal reflux disease): Qualifiers: Esophagitis presence: esophagitis presence not specified Qualified Code(s): K21.9 - Gastro-esophageal reflux disease without esophagitis (5) Hypertension: Qualifiers: Hypertension type: primary hypertension Qualified Code(s): I10 - Essential (primary) hypertension (6) Femoral artery stenosis: DS: Summary Hospital Course Hospital Course: patient is a 73-year-old female with past medical history of paroxysmal atrial fibrillation, CAD, HTN, Femoral Artery stenosis, Chronic Kidney disease. Admitted at [facility] last week and started on amiodarone after getting 2-3 day loading there continued on Coreg. She was admitted here over the weekend, Tuesday to Tuesday, HR was controlled on coreg and amiodarone and she was started on Eliquis 2.5mg BID and discharged with close follow up with her Vacuum Applicator Operator, Dr. Paul from [facility]. She was actually suppose to have her follow up appt yesterday at 3pm. I called and spoke with Dr. Paul. Her anticoagulation was stopped awhile go due to spontaneous renal hemorrhage but that has resolved and she was was in Normal sinus rhythm until recently. He suggested that our Cardiology team see her and possibly consider amiodarone load. Cardizem did not help this admission. Echocardiogram was also performed. [facility] cardiology consulted who recommended amiodarone drip since patient has had about 1200-1600mg since she filled the amiodarone on 05/20/23. Started at 1mg/min and decreased to 0.5mg/min once hypotension occurred. Patient converted to NSR and has remained on the drip for 18 hours. Will restart home/maintenance dosage of amiodarone 200mg daily. Cardiology also placed her on lasix 20mg IV BID. 550mL out today and edema has improved. Given her chronic kidney disease and worsening renal function today, I will not discharge home on lasix. She will continue eliquis for anticoagulation. Her left sided chest wall pain has subsided with some [place] and she will be given 2 days #4 of these to take at night time. Troponin negative, ECHO showed preserved EF with some Moderate Mitral regurg and biatrial enlargement with some moderately elevated right RV pressure at 48. I have spoke with the patient and about future needing possible ablation and possible IVC filter. I have also discussed with them that IF she were to return to the ER in Afib with RVR that they suggest Transfer to [facility] where her floral department specialist is located for EP and interventional Care that we cannot offer here. She will be discharged home in stable condition. Continue all home medications including her Eliquis. She is to keep close follow up appt with her cardiology team on 05/30/23. Status at Discharge Functional status at discharge: independent ambulation Overall status at discharge: patient is progressing back to baseline Time Spent with Patient Time attestation: Total time spent providing and/or coordinating discharge services: Time spent: greater than 30 minutes Exam Narrative Exam Narrative: General: Patient is alert, and oriented to person, place and time with normal affect, proper hygiene Neck: no masses palpated, normal thyroid, no JVD or audible carotid bruits Heart: Normal rate and rhythm, no murmurs/rubs/gallops Lungs: no audible wheezes, crackles and normal breath sounds all lung shaw Abdomen: Normal audible bowel sounds, no distension, No palpable masses, no organomegaly, no rebound/guarding/ or rigidity Musculoskeletal: no swelling bilateral lower extremities Neuro: CN II-X grossly intact Constitutional Vital Signs, click to edit/add: Last Vital Signs Temp 98.4 F 05/27/23 07:57 Pulse 75 05/27/23 07:50 Resp 18 05/27/23 04:05 BP 115/63 05/27/23 07:30 Pulse Ox 96 05/26/23 19:42 O2 Del Method Room Air 05/27/23 07:57 DS: Data Data Completed and Pending Labs on day of discharge: Labs from last 24 hours 05/27/23 05/26/23 04:40 02:02 WBC 9.0 RBC 2.36 L Hgb 7.3 L Hct 23.2 L* MCV 98.3 MCH 30.9 MCHC 31.5 RDW 14.5 Plt Count 244 MPV 10.2 Neut % (Auto) 69.8 Lymph % (Auto) 14.6 L Davidson % (Auto) 8.5 Eos % (Auto) 5.9 Baso % (Auto) 0.4 Neut # (Auto) 6.3 Lymph # (Auto) 1.3 Davidson # (Auto) 0.8 Eos # (Auto) 0.5 Baso # (Auto) 0.0 Abs Immat Gran (auto) 0.07 H Imm/Tot Granulo (auto) 0.8 H Sodium 138 Potassium 4.8 Chloride 105 Carbon Dioxide 18.1 L Anion Gap 19.7 BUN 44.0 H Creatinine 2.10 H Est GFR ( Amer) 28 L Est GFR (Non-Af Amer) 23 L BUN/Creatinine Ratio 21.0 Glucose 105 Calcium 8.0 L Magnesium 1.9 Total Bilirubin 0.4 AST 18 ALT 22 Alkaline Phosphatase 107 Troponin I High Sens 8.8 NT-Pro-B Natriuret Pep 7223.0 H* Total Protein 5.2 L Albumin 1.6 L Globulin 3.6 Albumin/Globulin Ratio 0.4 Discharge Plan Discharge Disposition: Home Health Service Condition: Fair Discharge Medications: New hydrocodone-acetaminophen 5-325 mg Tablet 1 tab PO BID PRN (Reason: Pain Scale 7-10) 2 Days Qty: 4 0RF Continued pantoprazole 40 mg tablet,delayed release (DR/EC) 40 mg PO DAILY carvedilol 6.25 mg Tablet 6.25 mg PO Q12H 30 Days Qty: 60 0RF Eliquis 5 mg Tablet 2.5 mg PO BID 30 Days Qty: 30 0RF amiodarone [Pacerone] 200 mg Tablet 200 mg PO DAILY 30 Days Qty: 30 0RF naproxen 250 mg tablet 250 mg PO Q12H Rx Instructions: filled 05/19/23 for 9 day supply hydralazine 50 mg tablet 50 mg PO Q8H doxazosin 2 mg tablet 2 mg PO BID rosuvastatin 20 mg tablet 20 mg PO .QHS Activity: increase activity as tolerated Diet: advance to your usual diet Print Language: [place] Can Closing Machine Operator/Rehab Services Aide Instructions: Discharge with [facility]. Phone number is [phone]. They should contact within 48 hours. There may be a delay due to it being Easter . If they do not reach out by Tuesday05/30/23, call the number provided. Forms: Portal Instructions Follow Up Appointments: Dr. Paul [facility] Cardiology on TuesdayMay 29 at 1:00pm at the [place] office [id number] [place] [address] phone number [phone] Dr. Kayla Zurita Primary Care Physician, on June 01 at 1:00pm at [facility] facility phone number [phone]
[2023-05-27] MEDS: DOXAZOSIN MESYLATE 2 MG TABLET PO (08:54)
[2023-05-27] MEDS: ASPIRIN 81 MG TAB.CHEW PO (08:54)
[2023-05-27] MEDS: FUROSEMIDE 20 MG/2 ML VIAL IV (08:55)
[2023-05-27] MEDS: APIXABAN 5 MG TABLET 2.5 MG PO (08:55)
[2023-05-27] MEDS: OMEPRAZOLE 40 MG CAPSULE.DR PO (08:55)
[2023-05-27] MEDS: CARVEDILOL 6.25 MG TABLET PO (08:58)
[2023-05-27] MEDS: AMIODARONE HCL 200 MG TABLET PO (09:35)
--- NOTE | 2023-05-27 10:18 | CM.NOTE ---
Rounds made with Dr. Harrison, pt will discharge to home this afternoon. Amiodarone drip to discontinue around 10:00 AM and will restart oral. Pt will f/u with plant protection supervisor at [facility].
--- NOTE | 2023-05-27 10:36 | CM.NOTE ---
Important Message From Medicare discussed with pt, pt verbalizes understanding and signs paper. Original given to pt and copy placed in pt's chart.
--- NOTE | 2023-05-27 12:36 | PC.NURSE ---
Discharge instructions explained to patient and significant other both verbalized understanding, reviewed last and next doses of meds due. Patient taken to exit via wheelchair with belongings, discharged to private vehicle.
--- NOTE | 2023-05-30 16:15 | CM.DCFOLLOWU ---
Person spoke with: Monica How are you feeling? Still not feeling great How is your pain? No pain Did you understand your discharge instructions? Yes Do you have any questions about your discharge instructions? No Were you given any prescriptions at discharge? Yes Were you able to get your prescriptions filled? Yes Do you understand how to take your medications as ordered? Yes Do you have any questions about your follow up appointment and do you plan to keep your follow up appointment? Just getting back from my appointment at [facility] Is there anything else that you would like to discuss? No Questions/Comments/Concerns/Other:
== END 2023-05-27 12:30 | disposition home health service (06) | DRG 310 ==
LOC: ER 01:58 → ICU 04:47
PROVIDERS: Nurse Practitioner Acute Care; Admitting Provider Family Medicine; Emergency Provider Emergency Medicine; Visit Provider Family Medicine
DX: I48.19 Other persistent atrial fibrillation (principal); R07.9 Chest pain, unspecified; I25.10 Atherosclerotic heart disease of native coronary artery without angina pectoris; I27.20 Pulmonary hypertension, unspecified; K21.9 Gastro-esophageal reflux disease without esophagitis; I12.9 Hypertensive chronic kidney disease with stage 1 through stage 4 chronic kidney disease, or unspecified chronic kidney disease; I34.0 Nonrheumatic mitral (valve) insufficiency; N18.9 Chronic kidney disease, unspecified; I70.209 Unspecified atherosclerosis of native arteries of extremities, unspecified extremity; I25.2 Old myocardial infarction; Z79.899 Other long term (current) drug therapy; Z87.891 Personal history of nicotine dependence; Z95.828 Presence of other vascular implants and grafts; Z95.5 Presence of coronary angioplasty implant and graft
CPT/HCPCS: 36415; 71045; 80053; 83735; 83880; 84484; 85025; 93005; 93306; 96365; 96366; 96367; 96368; 96375; 96376; 99285

== ENCOUNTER 2023-06-01 19:21 | Inpatient (IN) | payer OTHER, SELFPAY ==
[2023-06-01] VITALS (23 sets, daily range): BP systolic 107–155; BP diastolic 61–107; PULSE 101–119; TEMP 36.8–37; O2SAT 90–95; BMI 24.8
--- NOTE | 2023-06-01 19:39 | ECG_ITS ---
The [facility] Test Date: 2023-06-01 Pat Name: NEELAM VIRAMONTES Department: Room: - Gender: Female Joiner: : 1950 Requested By: ALIYA CLAYTON Order Number: [id number] Reading MD: ALIYA CLAYTON Measurements Intervals [place] Rate: 115 P: -72804 NC: -[id number] QRS: 54 QRSD: 88 T: -64 QT: 308 QTc: 376 Interpretive Statements 21807 Atrial fibrillation with rapid ventricular response 42852 Nonspecific Twave abnormality, probably digitalis effect 9140 abnormal rhythm ECG Compared to ECG 05/26/2023 16:12:40 Sinus rhythm no longer present Electronically Signed On 06-04-2023 8:18:00 EDT by ALIYA CLAYTON
--- OUTSIDE RECORDS SUMMARY | 2023-06-01 19:45 | XMS_ITS | CCD ---
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 [place] 6753083 Pst Manager: Daniella Ltot MD GFR/1.73 sq M.predicted among non-blacks MDRD (S/P/Bld) [Vol rate/Area] 40 mL/min/{1.73_m2} Low >60 [facility] Comment on above: Result Comment: These [...] secretion. Performed By: #### T ROPI #### [facility] [address] [place] [address] Pst Manager: Daniella Lott MD Glucose [Mass/Vol] 97 mg/dL Normal 70-99 [facility] Comment on above: Performed By: #### T ROPI #### [facility] [address] [place] [address] Pst Manager: Daniella Lott MD Potassium [Moles/Vol] 3.9 mmol/L Normal 3.7-5.3 [facility] Comment on above: Performed By: #### T ROPI #### [facility] [address] [place] [address] Dr. [place], [place] 1153283 Pst Manager: Daniella Lott MD Protein [Mass/Vol] 5.4 g/dL Low 6.4-8.3 [facility] Comment on above: Performed By: #### T ROPI #### [facility] [address] [place] [address] Dr. [place], [place] [phone] Pst Manager: Daniella Lott MD Sodium [Moles/Vol] 132 mmol/L Low 135-144 [facility] Comment on above: Performed By: #### T ROPI #### [facility] [address] [place] [address] Pst Manager: Daniella Lott MD Urea nitrogen [Mass/Vol] 27 mg/dL High 8-23 [facility] Comment on above: Performed By: #### T ROPI #### [facility] [address] [place] [address] [place] [address] Pst Manager: Daniella Lott MD [facility] Metabolic Pane l w/ Reflex to on 05-19-2023 Albumin [Mass/Vol] 2.9 g/dL Low 3.5 - 5.2 g/dL [facility] Albumin/Globulin [Mass ratio] 1.2 {ratio} 1.0 - 2.5 [facility] ALP [Catalytic activity/Vol] 59 U/L 35 - 104 U/L [facility] ALT [Catalytic activity/Vol] 5 U/L 5 - 33 U/L [facility] Anion gap [Moles/Vol] 8 mmol/L Low 9 - 17 mmol/L [facility] AST [Catalytic activity/Vol] 12 U/L NINF - 32 U/L [facility] Bilirubin [Mass/Vol] 0.5 mg/dL 0.3 - 1.2 mg/dL [facility] Calcium [Mass/Vol] 7.8 mg/dL Low 8.6 - 10. 4 mg/dL [facility] Chloride [Moles/Vol] 101 mmol/L 98 - 107 mmol/L [facility] CO2 [Moles/Vol] 23 mmol/L 20 - 31 mmol/L [facility] Creatinine [Mass/Vol] 1.4 mg/dL High 0.5 - 0.9 mg/dL [facility] GFR/1.73 sq M.predicted MDRD (S/P/Bld) [Vol rate/Area] 40 mL/min/{1.73_m2} Low - PINF [facility] Comment on above: These results [...] [Mass/Vol] 97 mg/dL 70 - 99 mg/dL [facility] Potassium [Moles/Vol] 3.9 mmol/L 3.7 - 5.3 mmol/L [facility] Protein [Mass/Vol] 5.4 g/dL Low 6.4 - 8.3 g/dL [facility] Sodium [Moles/Vol] 132 mmol/L Low 135 - 144 mmol/L [facility] Urea nitrogen [Mass/Vol] 27 mg/dL High 8 - 23 mg/dL [facility] Urea nitrogen/Creatinin e [Mass ratio] 19 mg/mg 9 - 20 [facility] Cult,Urineon 05-19-2023 Cult,Urine Specimen Description .CLEAN CATCH URINE Culture NO GROWTH Report Status FINAL 05/19/2023 Normal [facility] Comment on above: Performed By: #### U RC #### [facility] [address] [place], [place] [id number] Pst Manager: Jere Mas MD [facility] [address] [place] [address] Pst Manager: Daniella Lott MD EKG 12 Leadon 05-19-2023 Atrial Rate 104 BPM [facility] Q-T Interval 310 ms [facility] QRS Duration 80 ms [facility] QTc Calculation (Bazett) 466 ms [facility] R [place] 14 degrees [facility] T [place] -[address] [facility] Ventricular Rate 136 BPM [facility] Atrial fibrillation with rapid ventricular response Abnormal ECG When compared with ECG of 17-MAY-2023 16:19, Atrial fibrillation has replaced Sinus rhythm Vent. rate has increased BY 61 BPM Nonspecific T wave abnormality, worse in Inferior leads Confirmed by LAVERNE SILVESTRE ([id number]) on 05/19/2023 12:43:09 AM [facility] RADI[facility] Laverne Silvestre MD - 05/19/2023 Atrial fibrillation with rapid ventricular response Abnormal ECG When compared with ECG of 17-MAY-2023 16:19, Atrial fibrillation has replaced Sinus rhythm Vent. rate has increased BY 61 BPM Nonspecific T wave abnormality, worse in Inferior leads Confirmed by LAVERNE SILVESTRE ([id number]) on 05/19/2023 12:43:09 AM [facility] Atrial Rate 73 BPM [facility] P [place] 61 degrees [facility] P-R Interval 144 ms [facility] Q-T Interval 372 ms [facility] QRS Duration 86 ms [facility] QTc Calculation (Bazett) 409 ms [facility] R [place] 42 degrees [facility] T [place] 35 degrees [facility] Ventricular Rate 73 BPM [facility] Normal sinus rhythm Normal ECG When compared with ECG of 18-MAY-2023 15:47, (unconfirmed) Sinus rhythm has replaced Atrial fibrillation Vent. rate has decreased BY 63 BPM Nonspecific T wave abnormality, improved in Inferior leads Confirmed by LAVERNE SILVESTRE ([id number]) on 05/19/2023 12:38:02 AM [facility] Laverne Silvestre MD - 05/19/2023 Normal sinus rhythm Normal ECG When compared with ECG of 18-MAY-2023 15:47, (unconfirmed) Sinus rhythm has replaced Atrial fibrillation Vent. rate has decreased BY 63 BPM Nonspecific T wave abnormality, improved in Inferior leads Confirmed by LAVERNE SILVESTRE ([id number]) on 05/19/2023 12:38:02 AM [facility] EKG Rhythm Stripon [facility] Hemoglobin A1Con 05-19-2023 Glucose [Mass/Vol] 88 mg/dL Normal [facility] Comment on above: Result Comment: The ADA and AACC recommend providing the estimated average glucose result to permit better patient understanding of their HBA1c result. Performed By: #### T ROPI #### [facility] [address] [place] [address] Pst Manager: Danilela Lott MD HbA1c (Bld) [Mass fraction] 4.7 % Normal 4.0-6.0 [facility] Comment on above: Performed By: #### T ROPI #### [facility] [address] [place] [address] Pst Manager: Daniella Lott MD Lipid Profileon 05-19-2023 Cholesterol [Mass/Vol] 88 mg/dL Normal 0-199 [facility] Comment on above: Result Comment: Cholesterol Guidelines: <200 Desirable 200-240 Borderline >240 Undesirable Performed By: #### JP SMITH, CDP #### [facility] [address] [place], [place] [id number] Pst Manager: Daniella Lott MD Cholesterol in HDL [Mass/Vol] 37 mg/dL Low >40 [facility] Comment on above: Result Comment: HDL Guidelines: <40 Undesirable 40-59 Borderline >59 Desirable Performed By: #### JP SMITH, CDP #### [facility] [address] [place], [place] [id number] Pst Manager: Daniella Lott MD Cholesterol in LDL [Mass/Vol] 41 mg/dL Normal 0-100 [facility] Comment on above: Result Comment: LDL Guidelines: <100 Desirable 100-129 Near to/above Desirable 130-159 Borderline >159 Undesirable Direct (measured) LDL and calculated LDL are not interchangeable tests. Performed By: #### JP SMITH, CDP #### [facility] [address] [place], [place] [id number] Pst Manager: Daniella Lott MD Cholesterol in VLDL [Mass/Vol] 10 mg/dL Normal [facility] Comment on above: Performed By: #### JP SMITH, CDP #### [facility] [address] [place], [facility] Pst Manager: Daniella Lott MD Cholesterol.total/ Cholesterol in HDL [Mass ratio] 2.0 {ratio} Normal [facility] Comment on above: Performed By: #### JP SMITH, CDP #### [facility] [address] [place] [address] Pst Manager: Daniella Lott MD Triglyceride [Mass/Vol] 51 mg/dL Normal <150 [facility] Comment on above: Result Comment: Triglyceride Guidelines: <150 Desirable 150-199 Borderline 200-499 High >499 Very high Based on AHA Guidelines for fasting triglyceride, November 2011. Performed By: #### T BK, BMP, CDP #### [facility] [address] [place] [address] Pst Manager: Daniella Lott MD No Panel Informationon 05-18 Interpretation and review of laboratory results Abnormal [facility] CBC auto differentialon 04-29 Basophils (Bld) [#/Vol] 0.03 10*3/uL [facility] Basophils/100 WBC (Bld) 1 % 0 - 2 % [facility] Eosinophils (Bld) [#/Vol] 0.06 10*3/uL [facility] Eosinophils/100 WBC (Bld) 1 % 1 - 4 % [facility] Erythrocyte distribution width (RBC) [Ratio] 13.5 % 11.8 - 14.4 % [facility] Hematocrit (Bld) [Volume fraction] 31.5 % Low 36.3 - 47.1 % [facility] Hemoglobin (Bld) [Mass/Vol] 10.1 g/dL Low 11.9 - 15.1 g/dL [facility] Immature granulocytes (Bld) [#/Vol] [facility] Immature granulocytes/100 WBC (Bld) 0 % 0 [facility] Interpretation and review of laboratory results Abnormal [facility] Lymphocytes/100 WBC (Bld) 27 % 24 - 43 % [facility] Lymphocytes/100 WBC (Bld) 1.53 % [facility] MCH (RBC) [Entitic mass] 31.6 pg 25.2 - 33.5 pg [facility] MCHC (RBC) [Mass/Vol] 32.1 g/dL 28.4 - 34.8 g/dL [facility] MCV (RBC) [Entitic vol] 98.4 fL 82.6 - 102.9 fL [facility] Monocytes/100 WBC (Bld) 11 % 3 - 12 % [facility] Monocytes/100 WBC (Bld) 0.65 % [facility] Neutrophils/100 WBC (Bld) 60 % 36 - 65 % [facility] Nucleated RBC/100 WBC (Bld) [Ratio] 0.0 % 0.0 per 100 WBC [facility] Platelet mean volume (Bld) [Entitic vol] 10.1 fL 8.1 - 13.5 fL [facility] Platelets (Bld) [#/Vol] 138 10*3/uL [facility] RBC (Bld) [#/Vol] 3.20 10*6/uL Low 3.95 - 5.1 1 m/uL [facility] Segmented neutrophils/100 WBC (Bld) 3.48 % [facility] WBC other (Bld) [#/Vol] 5.8 [facility] CBC with Diffon 05-18-2023 Abs. Basophil 0.03 k/uL Normal 0.00-0.20 [facility] Comment on above: Performed By: #### T ROPI #### [facility] [address] [place] [address] Dr. [place] [id number] Pst Manager: Daniella Lott MD Abs.Imm.Granulocyt e <0.03 Normal 0.00-0.30 [facility] Comment on above: Performed By: #### T ROPI #### [address] [place] [address] Pst Manager: Daniella Lott MD Abs.Neutrophil (Seg) 3.48 k/uL Normal 1.50-8.10 [facility] Comment on above: Performed By: #### T ROPI #### [address] [place], [facility] Pst Manager: Daniella Lott MD Basophils/100 WBC (Bld) 1 % Normal 0-2 [facility] Comment on above: Performed By: #### T ROPI #### [facility] [address] [place] [address] Dr. [place] [id number] Pst Manager: Daniella Lott MD Eosinophils (Bld) [#/Vol] 0.06 10*3/uL Normal 0.00-0.44 [facility] Comment on above: Performed By: #### T ROPI #### [facility] [address] [place], [facility] Pst Manager: Daniella Lott MD Eosinophils/100 WBC (Bld) 1 % Normal 1-4 [facility] Comment on above: Performed By: #### T ROPI #### [address] [place], [facility] Pst Manager: Daniella Lott MD Erythrocyte distribution width (RBC) [Ratio] 13.5 % Normal 11.8-14.4 [facility] Comment on above: Performed By: #### T ROPI #### [address] [place], [facility] Pst Manager: Daniella Lott MD Hematocrit (Bld) [Volume fraction] 31.5 % Low 36.3-47.1 [facility] Comment on above: Performed By: #### T ROPI #### [address] [place], [facility] Pst Manager: Daniella Lott MD Hemoglobin (Bld) [Mass/Vol] 10.1 g/dL Low 11.9-15.1 [facility] Comment on above: Performed By: #### T ROPI #### [address] [place], [facility] Pst Manager: Daniella Lott MD Immature granulocytes/100 WBC (Bld) 0 % Normal 0 [facility] Comment on above: Performed By: #### T ROPI #### [address] [place], [facility] Pst Manager: Daniella Lott MD Lymphocytes (Bld) [#/Vol] 1.53 10*3/uL Normal 1.10-3.70 [facility] Comment on above: Performed By: #### T ROPI #### [facility] [address] [place], [place] [id number] Pst Manager: Daniella Lott MD Lymphocytes/100 WBC (Bld) 27 % Normal 24-43 [facility] Comment on above: Performed By: #### T ROPI #### [facility] [address] [place], [place] [id number] Pst Manager: Daniella Lott MD MCH (RBC) [Entitic mass] 31.6 pg Normal 25.2-33.5 [facility] Comment on above: Performed By: #### T ROPI #### [facility] [address] [place], [facility] Pst Manager: Daniella Lott MD MCHC (RBC) [Mass/Vol] 32.1 g/dL Normal 28.4-34.8 [facility] Comment on above: Performed By: #### T ROPI #### [facility] [address] [place], [facility] Pst Manager: Daniella Lott MD MCV (RBC) [Entitic vol] 98.4 fL Normal 82.6-102.9 [facility] Comment on above: Performed By: #### T ROPI #### [facility] [address] [place], [facility] Pst Manager: Daniella Lott MD Monocytes (Bld) [#/Vol] 0.65 10*3/uL Normal 0.10-1.20 [facility] Comment on above: Performed By: #### T ROPI #### [facility] [address] [place], [place] [id number] Pst Manager: Daniella Lott MD Monocytes/100 WBC (Bld) 11 % Normal 3-12 [facility] Comment on above: Performed By: #### T ROPI #### [facility] [address] [place], [facility] Pst Manager: Daniella Lott MD Neutrophil (Seg) 60 % Normal 36-65 [facility] Comment on above: Performed By: #### T ROPI #### [facility] [address] [place] [address] Pst Manager: Daniella Lott MD NRBC Automated 0.0 per 100 WBC Normal 0.0 [facility] Comment on above: Performed By: #### T ROPI #### [facility] [address] [place], [facility] Pst Manager: Daniella Lott MD Platelet mean volume (Bld) [Entitic vol] 10.1 fL Normal 8.1-13.5 [facility] Comment on above: Performed By: #### T ROPI #### [facility] [address] [place], [facility] Pst Manager: Daniella Lott MD Platelets (Bld) [#/Vol] 138 10*3/uL Normal 138-453 [facility] Comment on above: Performed By: #### T ROPI #### [facility] [address] [place] [address] Pst Manager: Daniella Lott MD RBC (Bld) [#/Vol] 3.20 10*6/uL Low 3.95-5.11 [facility] Comment on above: Performed By: #### T ROPI #### [facility] [address] [place], [facility] Pst Manager: Daniella Lott MD WBC (Bld) [#/Vol] 5.8 10*3/uL Normal 3.5-11.3 [facility] Comment on above: Performed By: #### T ROPI #### [facility] [address] [place], [place] [id number] Pst Manager: Daniella Lott MD Comp Metabolic Pr/rfx MGon 0 05-18-2023 Albumin [Mass/Vol] 3.1 g/dL Low 3.5-5.2 [facility] Comment on above: Performed By: #### T ROPI #### [facility] [address] [place], [place] [address]346783 Pst Manager: Daniella Lott MD Albumin/Glob Ratio 1.3 Normal 1.0-2.5 [facility] Comment on above: Performed By: #### T ROPI #### [facility] [address] [place], [place] [address]36[address]83 Pst Manager: Daniella Lott MD Alkaline Phos 58 U/L Normal 35-104 [facility] Comment on above: Performed By: #### T ROPI #### [facility] [address] [place], [place] 5305083 Pst Manager: Daniella Lott MD ALT [Catalytic activity/Vol] 5 U/L Normal 5-33 [facility] Comment on above: Performed By: #### T ROPI #### [facility] [address] [place] [address] Dr. [place], [place] 3455183 Pst Manager: Daniella Lott MD Anion gap [Moles/Vol] 10 mmol/L Normal 9-17 [facility] Comment on above: Performed By: #### T ROPI #### [facility] [address] [place] [address] Dr. [place], [place] [id number] Pst Manager: Daniella Lott MD AST [Catalytic activity/Vol] 13 U/L Normal <32 [facility] Comment on above: Performed By: #### T ROPI #### [facility] [address] [place], [place] [address]2583 Pst Manager: Daniella Lott MD Bilirubin [Mass/Vol] 0.6 mg/dL Normal 0.3-1.2 [facility] Comment on above: Performed By: #### T ROPI #### [facility] [address] [place], [place] 5142183 Pst Manager: Daniella Lott MD BUN/CRE Ratio 18 Normal 9-20 [facility] Comment on above: Performed By: #### T ROPI #### [facility] [address] [place] [address] Pst Manager: Daniella Lott MD Calcium [Mass/Vol] 8.0 mg/dL Low 8.6-10.4 [facility] Comment on above: Performed By: #### T ROPI #### [facility] [address] [place], [place] [id number] Pst Manager: Daniella Lott MD Chloride [Moles/Vol] 104 mmol/L Normal 98-107 [facility] Comment on above: Performed By: #### T ROPI #### [facility] [address] [place], [place] [id number] Pst Manager: Daniella Lott MD CO2 [Moles/Vol] 22 mmol/L Normal 20-31 [facility] Comment on above: Performed By: #### T ROPI #### [facility] [address] [place], [place] [id number] Pst Manager: Danilela Lott MD Creatinine [Mass/Vol] 1.3 mg/dL High 0.5-0.9 [facility] Comment on above: Performed By: #### T ROPI #### [facility] [address] [place], [place] [id number] Pst Manager: Daniella Lott MD GFR/1.73 sq M.predicted among non-blacks MDRD (S/P/Bld) [Vol rate/Area] 44 mL/min/{1.73_m2} Low >60 [facility] Comment on above: Result Comment: These [...] secretion. Performed By: #### T ROPI #### [facility] [address] [place] [address] Pst Manager: Daniella Lott MD Glucose [Mass/Vol] 83 mg/dL Normal 70-99 [facility] Comment on above: Performed By: #### T ROPI #### [facility] [address] [place] [address] Pst Manager: Daniella Lott MD Potassium [Moles/Vol] 4.1 mmol/L Normal 3.7-5.3 [facility] Comment on above: Performed By: #### T ROPI #### [facility] [address] [place] [address] Pst Manager: Daniella Lott MD Protein [Mass/Vol] 5.4 g/dL Low 6.4-8.3 [facility] Comment on above: Performed By: #### T ROPI #### [facility] [address] [place] [address] Pst Manager: Daniella Lott MD Sodium [Moles/Vol] 136 mmol/L Normal 135-144 [facility] Comment on above: Performed By: #### T ROPI #### [facility] [address] [place] [address] Pst Manager: Daniella Lott MD Urea nitrogen [Mass/Vol] 23 mg/dL Normal 8-23 [facility] Comment on above: Performed By: #### T ROPI #### [facility] [address] [place] [address] Pst Manager: Daniella Lott MD Comprehensive Metabolic Pane l w/ Reflex to MGon 05-18-2023 Albumin [Mass/Vol] 3.1 g/dL Low 3.5 - 5.2 g/dL [facility] Albumin/Globulin [Mass ratio] 1.3 {ratio} 1.0 - 2.5 [facility] ALP [Catalytic activity/Vol] 58 U/L 35 - 104 U/L [facility] ALT [Catalytic activity/Vol] 5 U/L 5 - 33 U/L [facility] Anion gap [Moles/Vol] 10 mmol/L 9 - 17 mmol/L [facility] AST [Catalytic activity/Vol] 13 U/L NINF - 32 U/L [facility] Bilirubin [Mass/Vol] 0.6 mg/dL 0.3 - 1.2 mg/dL [facility] Calcium [Mass/Vol] 8.0 mg/dL Low 8.6 - 10. 4 mg/dL [facility] Chloride [Moles/Vol] 104 mmol/L 98 - 107 mmol/L [facility] CO2 [Moles/Vol] 22 mmol/L 20 - 31 mmol/L [facility] Creatinine [Mass/Vol] 1.3 mg/dL High 0.5 - 0.9 mg/dL [facility] GFR/1.73 sq M.predicted MDRD (S/P/Bld) [Vol rate/Area] 44 mL/min/{1.73_m2} Low - PINF [facility] Comment on above: These results [...] [Mass/Vol] 83 mg/dL 70 - 99 mg/dL [facility] Interpretation and review of laboratory results Abnormal [facility] Potassium [Moles/Vol] 4.1 mmol/L 3.7 - 5.3 mmol/L [facility] Protein [Mass/Vol] 5.4 g/dL Low 6.4 - 8.3 g/dL [facility] Sodium [Moles/Vol] 136 mmol/L 135 - 144 mmol/L [facility] Urea nitrogen [Mass/Vol] 23 mg/dL 8 - 23 mg/dL [facility] Urea nitrogen/Creatinin e [Mass ratio] 18 mg/mg 9 - 20 [facility] EKG 12 LeadOrdered By: Adam Silvestre on 05-18-2023 Atrial Rate 58 BPM [facility] Work Phone: P [place] 69 degrees [facility] Work Phone: P-R Interval 140 ms [facility] Work Phone: Q-T Interval 418 ms [facility] Work Phone: QRS Duration 82 ms [facility] Work Phone: QTc Calculation (Bazett) 410 ms [facility] Work Phone: R [place] 43 degrees [facility] Work Phone: T [place] 54 degrees [facility] Work Phone: Ventricular Rate 58 BPM [facility] Work Phone: [facility] Work Phone: EKG 12 Leadon 05-18-2023 Sinus bradycardia Otherwise normal ECG No previous ECGs available Confirmed by LAVERNE SILVESTRE ([id number]) on 05/18/2023 1:01:51 AM [facility] RADIOLOG[facility] Laverne Silvestre MD - 05/18/2023 Sinus bradycardia Otherwise normal ECG No previous ECGs available Confirmed by LAVERNE SILVESTRE ([id number]) on 05/18/2023 1:01:51 AM [facility] Atrial Rate 75 BPM [facility] P [place] 91 degrees [facility] P-R Interval 154 ms [facility] Q-T Interval 380 ms [facility] QRS Duration 86 ms [facility] QTc Calculation (Bazett) 424 ms [facility] R [place] 38 degrees [facility] T [place] 50 degrees [facility] Ventricular Rate 75 BPM [facility] Normal sinus rhythm Normal ECG When compared with ECG of 17-MAY-2023 11:52, (unconfirmed) No significant change was found Confirmed by LAVERNE SILVESTRE ([id number]) on 05/18/2023 12:57:09 AM [facility] Laverne Silvestre MD - 05/18/2023 Normal sinus rhythm Normal ECG When compared with ECG of 17-MAY-2023 11:52, (unconfirmed) No significant change was found Confirmed by LAVERNE SILVESTRE ([id number]) on 05/18/2023 12:57:09 AM [facility] EKG Rhythm Stripon [facility] CBC with Auto Differentialon 05-17-2023 Basophils (Bld) [#/Vol] 0.03 10*3/uL [facility] Immature granulocytes (Bld) [#/Vol] [facility] Interpretation and review of laboratory results Abnormal [facility] Lymphocytes/100 WBC (Bld) 1.23 % [facility] Monocytes/100 WBC (Bld) 0.57 % [facility] Neutrophils/100 WBC (Bld) 75 % High 36 - 65 % [facility] Nucleated RBC/100 WBC (Bld) [Ratio] 0.0 % 0.0 per 100 WBC [facility] Segmented neutrophils/100 WBC (Bld) 5.64 % [facility] WBC other (Bld) [#/Vol] 7.6 [facility] CBC with Diffon 05-17-2023 Abs. Basophil 0.03 k/uL Normal 0.00-0.20 [facility] Comment on above: Performed By: #### T KUMARI #### [facility] [address] [place] [address] Pst Manager: Daniella Lott MD Abs.Imm.Granulocyt e <0.03 Normal 0.00-0.30 [facility] Comment on above: Performed By: #### T KUMARI #### [facility] [address] [place] [address] Pst Manager: Daniella Lott MD Abs.Neutrophil (Seg) 5.64 k/uL Normal 1.50-8.10 [facility] Comment on above: Performed By: #### T ROPI #### [facility] [address] [place] [address] Pst Manager: Daniella Lott MD Lymphocytes (Bld) [#/Vol] 1.23 10*3/uL Normal 1.10-3.70 [facility] Comment on above: Performed By: #### T ROPI #### [address] [place], [facility] Pst Manager: Daniella Lott MD Monocytes (Bld) [#/Vol] 0.57 10*3/uL Normal 0.10-1.20 [facility] Comment on above: Performed By: #### T ROPI #### [address] [place], [facility] Pst Manager: Daniella Lott MD Neutrophil (Seg) 75 % High 36-65 [facility] Comment on above: Performed By: #### T ROPI #### [address] [place], [place] [id number] Pst Manager: Daniella Lott MD NRBC Automated 0.0 per 100 WBC Normal 0.0 [facility] Comment on above: Performed By: #### T ROPI #### [facility] [address] [place] [address] Dr. [place], [facility] Pst Manager: Daniella Lott MD WBC (Bld) [#/Vol] 7.6 10*3/uL Normal 3.5-11.3 [facility] Comment on above: Performed By: #### T ROPI #### [facility] [address] [place] [address] [place] [address] Pst Manager: Daniella Lott MD Basophils/100 WBC (Bld) 0 % Normal 0-2 [facility] Comment on above: Performed By: #### T ROPI #### [address] [place], [place] [id number] Pst Manager: Daniella Lott MD Eosinophils (Bld) [#/Vol] 0.11 10*3/uL Normal 0.00-0.44 [facility] Comment on above: Performed By: #### T ROPI #### [address] [place] [id number] Pst Manager: Daniella Lott MD Eosinophils/100 WBC (Bld) 1 % Normal 1-4 [facility] Comment on above: Performed By: #### T ROPI #### [address] [place] [id number] Pst Manager: Daniella Lott MD Erythrocyte distribution width (RBC) [Ratio] 13.7 % Normal 11.8-14.4 [facility] Comment on above: Performed By: #### T ROPI #### [address] [place] [id number] Pst Manager: Daniella Lott MD Hematocrit (Bld) [Volume fraction] 38.1 % Normal 36.3-47.1 [facility] Comment on above: Performed By: #### T ROPI #### [address] [place] [id number] Pst Manager: Daniella Lott MD Hemoglobin (Bld) [Mass/Vol] 11.8 g/dL Low 11.9-15.1 [facility] Comment on above: Performed By: #### T ROPI #### [address] [place] [address] Pst Manager: Daniella Lott MD Immature granulocytes/100 WBC (Bld) 0 % Normal 0 [facility] Comment on above: Performed By: #### T ROPI #### [address] [place] [address] Pst Manager: Daniella Lott MD Lymphocytes/100 WBC (Bld) 16 % Low 24-43 [facility] Comment on above: Performed By: #### T ROPI #### [address] [place], [facility] Pst Manager: Daniella Lott MD MCH (RBC) [Entitic mass] 30.6 pg Normal 25.2-33.5 [facility] Comment on above: Performed By: #### T ROPI #### [address] [place], [facility] Pst Manager: Daniella Lott MD MCHC (RBC) [Mass/Vol] 31.0 g/dL Normal 28.4-34.8 [facility] Comment on above: Performed By: #### T ROPI #### [address] [place], [facility] Pst Manager: Daniella Lott MD MCV (RBC) [Entitic vol] 99.0 fL Normal 82.6-102.9 [facility] Comment on above: Performed By: #### T ROPI #### [address] [place] [address] Pst Manager: Daniella Lott MD Monocytes/100 WBC (Bld) 8 % Normal 3-12 [facility] Comment on above: Performed By: #### T ROPI #### [address] [place] [address] Pst Manager: Daniella Lott MD Platelet mean volume (Bld) [Entitic vol] 9.5 fL Normal 8.1-13.5 [facility] Comment on above: Performed By: #### T ROPI #### [address] [place] [address] Pst Manager: Daniella Lott MD Platelets (Bld) [#/Vol] 169 10*3/uL Normal 138-453 [facility] Comment on above: Performed By: #### T ROPI #### [facility] [address] [place], [place] [id number] Pst Manager: Daniella Lott MD RBC (Bld) [#/Vol] 3.85 10*6/uL Low 3.95-5.11 [facility] Comment on above: Performed By: #### T ROPI #### [facility] [address] [place], [place] [address] Pst Manager: Daniella Lott MD CTA CHEST ABDOMEN PELVIS W C ONTRASTon 05-17-2023 CTA CHEST ABDOMEN PELVIS W CONTRAST [...] PROVIDED HISTORY: chest pain, into back, previous ID, and also known PVD with aortic stent TECHNOLOGIST PROVIDED HISTORY: chest pain, into back, previous ID, and also known PVD with aortic stent [...] Faisal Treviño MD 05/17/23 Final result Normal [facility] CTA Chest vessels and Abdomi nal [...] Further evaluation with pelvic ultrasound is recommended. [facility] RIS CONSOLIDATED EXAMINATION: CTA OF THE CHEST, [...] PROVIDED HISTORY: chest pain, into back, previous ID, and also known PVD with aortic stent TECHNOLOGIST PROVIDED HISTORY: chest pain, into back, previous ID, and also known PVD with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 Phone: [facility] 05-17-2023 11:05-0400 Diastolic blood pressure 79 mm[Hg] Eden Yañez MAIL READER Work Phone: [facility] Work Phone: 05-17-2023 11:05-0400 Systolic blood pressure 141 mm[Hg] Eden Yañez MAIL READER Work Phone: [facility] Work Phone: 05-17-2023 10:48-0400 Body height 154.94 cm Eden Yañez CNP Work Phone: [facility] Work Phone: 05-17-2023 10:48-0400 Body mass index (BMI) [Ratio] 25.2 kg/m2 Eden Yañez CNP Work Phone: [facility] Work Phone: 05-17-2023 10:48-0400 Body surface area Derived from formula 1.6 m2 Eden Yañez CNP Work Phone: [facility] Work Phone: 05-17-2023 10:48-0400 Body weight 60.51 kg Eden Yañez CNP Work Phone: [facility] Work Phone: 05-17-2023 10:48-0400 Diastolic blood pressure 80 mm[Hg] Eden Yañez MAIL READER Work Phone: [facility] Work Phone: 05-17-2023 10:48-0400 Heart rate 69 /min Eden Yañez MAIL READER Work Phone: [facility] Work Phone: 05-17-2023 10:48-0400 SaO2% (BldA) [Mass fraction] 98 % Eden Yañez MAIL READER Work Phone: [facility] Work Phone: 05-17-2023 10:48-0400 Systolic blood pressure 148 mm[Hg] Eden Yañez MAIL READER Work Phone: [facility] Work Phone: 05-17-2023 10:25-0400 Diastolic blood pressure 75 mm[Hg] Eden Yañez MAIL READER Work Phone: [facility] 05-17-2023 10:25-0400 Systolic blood pressure 124 mm[Hg] Eden Yañez MAIL READER Work Phone: [facility] 01-28-2023 10:22-0500 Body weight 60.78 kg Ayo Paul MD Work Phone: [facility] 01-28-2023 10:22-0500 Diastolic blood pressure 74 mm[Hg] Ayo Paul MD Work Phone: [facility] 01-28-2023 10:22-0500 Heart rate 64 /min Ayo Paul MD Work Phone: [facility] 01-28-2023 10:22-0500 Systolic blood pressure 122 mm[Hg] Ayo Paul MD Work Phone: [facility] 01-14-2023 11:39-0500 Body height 154.9 cm Caroline Jackson MD Work Phone: [facility] 01-14-2023 11:39-0500 Body weight 58.51 kg Caroline Jackson MD Work Phone: [facility] 01-14-2023 11:39-0500 Diastolic blood pressure 63 mm[Hg] Caroline Jackson MD Work Phone: [facility] 01-14-2023 11:39-0500 Heart rate 60 /min Caroline Jackson MD Work Phone: [facility] 01-14-2023 11:39-0500 SaO2% (BldA) [Mass fraction] 94 % Caroline Jackson MD Work Phone: [facility] 11-17-2023 11:39-0500 Systolic blood pressure 124 mm[Hg] Caroline Jackson MD Work Phone: [facility] 11-15-2022 09:55-0400 Body height 154.9 cm Risa Austinland ATTENDANT [employer].MAIL READER Work Phone: [facility] 11-15-2022 09:55-0400 Body weight 60.78 kg Risa Austinland [employer].MAIL READER Work Phone: [facility] 11-15-2022 09:55-0400 Diastolic blood pressure 78 mm[Hg] Risa Conrado [employer].MAIL READER Work Phone: [facility] 11-15-2022 09:55-0400 Heart rate 63 /min Risa Conrado [employer].MAIL READER Work Phone: [facility] 11-15-2022 09:55-0400 Systolic blood pressure 135 mm[Hg] Risa Conrado [employer].MAIL READER Work Phone: [facility] 10-21-2022 10:09-0400 Body height 154.9 cm Ira Terence ATT[employer].MAIL READER Work Phone: [facility] 10-21-2022 10:09-0400 Body weight 61.69 kg Ira Terence [employer].MAIL READER Work Phone: [facility] 10-21-2022 10:09-0400 Diastolic blood pressure 83 mm[Hg] Ira Terence [employer].MAIL READER Work Phone: [facility] 10-21-2022 10:09-0400 Heart rate 66 /min Ira Terence [employer].MAIL READER Work Phone: [facility] 10-21-2022 10:09-0400 Systolic blood pressure 144 mm[Hg] Ira Terence [employer].MAIL READER Work Phone: [facility] 07-28-2022 14:26-0400 Body height 154.9 cm Ayo Paul MD Work Phone: [facility] 07-28-2022 14:26-0400 Body weight 61.33 kg Ayo Paul MD Work Phone: [facility] 07-28-2022 14:26-0400 Diastolic blood pressure 82 mm[Hg] Ayo Paul MD Work Phone: [facility] 07-28-2022 14:26-0400 Heart rate 57 /min Ayo Paul MD Work Phone: [facility] 07-28-2022 14:26-0400 Systolic blood pressure 136 mm[Hg] Ayo Paul MD Work Phone: [facility] 01-26-2022 14:43-0500 Body height 154.9 cm Ayo Paul MD Work Phone: [facility] 01-26-2022 14:43-0500 Body weight 62.87 kg Ayo Paul MD Work Phone: [facility] 01-26-2022 14:43-0500 Diastolic blood pressure 58 mm[Hg] Ayo Paul MD Work Phone: [facility] 01-26-2022 14:43-0500 Heart rate 68 /min Ayo Paul MD Work Phone: [facility] 01-26-2022 14:43-0500 Systolic blood pressure 104 mm[Hg] Ayo Paul MD Work Phone: [facility] 12-09-2021 14:35-0400 Diastolic blood pressure 71 mm[Hg] Sergo Tucker MD Work Phone: [facility] 12-09-2021 14:35-0400 Heart rate 57 /min Sergo Tucker MD Work Phone: [facility] 12-09-2021 14:35-0400 Systolic blood pressure 150 mm[Hg] Sergo Tucker MD Work Phone: [facility] 08-11-2021 12:52-0400 Body weight 65.77 kg Rupesh Gu DO Work Phone: [facility] 08-11-2021 12:52-0400 Diastolic blood pressure 70 mm[Hg] Rupesh Gu DO Work Phone: [facility] 08-11-2021 12:52-0400 Heart rate 54 /min Rupesh Gu DO Work Phone: [facility] 08-11-2021 12:52-0400 SaO2% (BldA) [Mass fraction] 96 % Rupesh Gu DO Work Phone: [facility] 08-11-2021 12:52-0400 Systolic blood pressure 130 mm[Hg] Rupesh Gu DO Work Phone: [facility] Encounters Encounter Date Encounter Type Care Provider Facility Start: 05-30-2023 End: 05-31-2023 ambulatory [facility] Facility:[facility] Start: 05-30-2023 End: 05-30-2023 Patient encounter procedure Stephanie Ponceaudrey GAUTAMN.MAIL READER Work Phone: Cardiology Comment on above: Paroxysmal atrial fi brillation (HCC) (Primary Dx); Acute on chronic heart failure with preserved ejection fraction (HCC) Start: 05-26-2023 Telephone encounter Kayla tavares MD Work Phone: [address] [place] [address] Comment on above: Orders (HHC) Start: 05-26-2023 ambulatory KAYLA MONTERROSO Facility: [facility] Start: 05-20-2023 Telephone encounter Ayo dooley MD Work Phone: Cardiology Comment on above: ER/Urgent Referral Start: 05-20-2023 End: 05-20-2023 Emergency department patient visit CLARI DOUGHERTY [facility] Start: 05-17-2023 End: 05-19-2023 Evaluation and management of inpatient LUIS ESTRELLA [facility] Start: 05-17-2023 End: 05-19-2023 Evaluation and management of inpatient Arabella Dutton DO Work Phone: [facility] ICU Comment on above: Chest pain, unspecif ied type (Primary Dx); Right sided abdominal pain; Coronary artery disease involving [place] coronary artery of [place] tribe heart without angina pectoris; Mixed hyperlipidemia; Essential hypertension; Acute deep vein thrombosis (DVT) of distal vein of right lower extremity (HCC) Start: 05-17-2023 End: 05-17-2023 FQHC visit new patient Eden Yañez MAIL READER Work Phone: [facility] Work Phone: Start: 05-17-2023 End: 05-17-2023 Emergency department patient visit Izzy Chu AMELIAS Work Phone: [facility] Work Phone: Start: 05-16-2023 ambulatory Izzy Chu DDS [facility] Start: 04-25-2023 End: 04-25-2023 ambulatory IRA VELEZ Facility:[facility] Start: 03-31-2023 ambulatory Matilde Salvador MA vigate [facility] Comment on above: Population Health Na vigation Outreach ([place] [facility] Out[facility] ) Start: 03-14-2023 End: 03-14-2023 ambulatory KAYLA MONTERROSO Facility:[facility] Start: 03-03-2023 End: 03-03-2023 ambulatory TONYA ROSEN Facility:[facility] Start: 02-25-2023 End: 02-25-2023 ambulatory RENAE GERMAN Facility:[facility] Start: 02-02-2023 ambulatory Kayla Monterroso MD Work Phone: Internal Medicine [facility] Start: 01-28-2023 Refill Vielka vargas APRN.MAIL READER Work Phone: Cardiology Comment on above: Refill Request Start: 01-28-2023 End: 01-29-2023 ambulatory AYO PAUL Facility:[facility] Start: 01-28-2023 End: 01-28-2023 Patient encounter procedure Ayo Paul MD Work Phone: Cardiology Comment on above: Paroxysmal atrial fi brillation (HCC) (Primary Dx); Aortoiliac occlusive disease (HCC) Start: 01-14-2023 End: 01-14-2023 ambulatory CAROLINE JACKSON Facility:[facility] Start: 01-14-2023 End: 01-14-2023 Patient encounter procedure Caroline Jackson MD Work Phone: Neurology Comment on above: APPOINTMENT CANCELLE D (Primary Dx); Pulsatile tinnitus, left ear Start: 11-15-2022 End: 11-15-2022 Patient encounter procedure Risa Warner APRN.MAIL READER Work Phone: Kidney Medicine Comment on above: Benign hypertension with chronic kidney disease, stage III (HCC) (Primary Dx); Stage 3b chronic kidney disease (HCC); Hyperlipidemia, unspecified hyperlipidemia type Carotid artery steno sis, asymptomatic, bilateral (Primary Dx); PVD (peripheral vascular disease) (HCC); Aortoiliac occlusive disease (HCC) Start: 11-15-2022 End: 11-15-2022 ambulatory RISA WARNER Facility:[facility] Start: 10-21-2022 End: 10-21-2022 ambulatory IRA Costa VELEZ Facility:[facility] Start: 10-21-2022 End: 10-21-2022 Patient encounter procedure Ira Salgado APRN.MAIL READER Work Phone: Internal Medicine Comment on above: Encounter for Medica re annual wellness exam (Primary Dx); Coronary artery disease involving [place] tribe coronary artery of [place] tribe heart without angina pectoris; Mixed hyperlipidemia; Paroxysmal atrial fibrillation (HCC); Essential hypertension; Atherosclerotic peripheral vascular disease with intermittent claudication (HCC); CKD (chronic kidney disease) stage 4, GFR 15-29 ml/min (HCC) Start: 07-28-2022 End: 07-28-2022 [facility] Start: 07-28-2022 End: 07-28-2022 Patient encounter procedure Ayo Paul MD Work Phone: Cardiology Comment on above: Paroxysmal atrial fi brillation (HCC) (Primary Dx); Hypertension, unspecified type; Atherosclerotic peripheral vascular disease with intermittent claudication (HCC); Aortoiliac occlusive disease (HCC) Start: 07-28-2022 End: 07-29-2022 ambulatory AYO PAUL Facility:[facility] Start: 05-26-2022 Refill Kayla Monterroso MD Work Phone: [address] [place] [address] Comment on above: Refill Request Start: 03-03-2022 ambulatory Kayla Monterroso MD Work Phone: Internal Medicine [facility] Start: 02-23-2022 End: 02-24-[address] DOCTOR BAXTER Facility: Start: 01-26-2022 End: 01-26-2022 Patient encounter procedure Ayo Paul MD Work Phone: Cardiology Comment on above: Paroxysmal atrial fi brillation (HCC) (Primary Dx); History of ST elevation myocardial infarction (STEMI); PAF (paroxysmal atrial fibrillation) (HCC) Start: 01-14-2022 End: 01-14-2022 ambulatory CAROLINE JACKSON Facility:[facility] Start: 12-17-2021 ambulatory Gabriella allison MA [facility] Comment on above: Population Health Na vigation Outreach (Spouse of [facility] outreach pt) Start: 12-09-2021 End: [...] above: Appointment Start: 11-12-2021 ambulatory Leida burt [employer].MAIL READER Work Phone: Pulmonary Medicine Start: 11-11-2021 End: 11-11-2021 ambulatory Macrina Jakec PA-C Work Phone: Otolaryngology Comment on above: Pulsatile tinnitus, left ear (Primary Dx); Lightheadedness; Tinnitus of left ear; Tension-type headache, not intractable, unspecified chronicity pattern Start: 11-11-2021 End: 11-11-2021 Telemedicine consultation with patient Macrina Suamandalac PA-C Work Phone: [facility] Start: 10-30-2021 Orders Only Renae German APR N.MAIL READER Work Phone: Vascular Surgery Comment on above: [...] Kayla Monterroso MD Work Phone: RADHA WALLER [facility] Start: 09-18-2021 Refill Kayla Monterroso MD Work Phone: Internal Medicine Comment on above: Refill Request Start: 08-11-2021 End: 08-11-2021 Patient encounter procedure Rupesh Gu DO Work Phone: Cardiology Comment on above: Paroxysmal atrial fi brillation (HCC) (Primary Dx); Coronary artery disease involving [place] tribe coronary artery of [place] tribe heart without angina pectoris; Hypertension, unspecified type; Mixed hyperlipidemia; Non-rheumatic mitral regurgitation; PVD (peripheral vascular disease) (HCC) Start: 06-26-2021 Orders Only Ayo Tovar Work Phone: Cardiology Comment on above: Paroxysmal atrial fi brillation (HCC) (Primary Dx) Start: 06-17-2021 Telephone encounter Risa Warner APRN.CNP Work Phone: Kidney Medicine Comment on above: Appointment Start: 09-30-2016 End: 10-01-2016 Ambulatory GILMER SHEPPARD Facility:[facility] Procedures Date Procedure Procedure Detail Performing Clinician Start: 05-19-2023 Natriuretic peptide Jose Telles MD Work Phone: Start: 05-19-2023 End: 05-19-2023 Ecg routine ecg w/least 12 lds w/i&r Jose Telles MD Work Phone: Start: 05-19-2023 Lipid 1996 panel - S kay or Plasma Kayla Monterroso MD Work Phone: Start: 05-18-2023 End: 05-18-2023 Ecg routine ecg w/least 12 lds i&r only Jose Telles MD Work Phone: Start: 05-18-2023 End: 05-19-2023 Ecg routine ecg w/least 12 lds i&r only Laine Tejeda [facility] Work Phone: Start: 05-18-2023 Mri abdomen w/o & w/contrast material Luis Estrella MD Work Phone: Start: 05-18-2023 Blood count complete auto&auto difrntl wbc Laine Tejeda [facility] Work Phone: Start: 05-17-2023 Intermittent pulse oximetry [...] 05-17-2023 Antibody hiv-1&hiv-2 single result Eden Yañez MAIL READER Work Phone: Start: 05-17-2023 Aspirin 81mg Oral Tab,EBOX Eden Yañez MAIL READER Work Phone: Start: 05-17-2023 Current tobacco non- user cad cap copd pv dm Eden Yañez MAIL READER Work Phone: Start: 05-17-2023 Most recent diastoli c blood pressure 80-89 mm hg Eden Yañez MAIL READER Work Phone: Start: 05-17-2023 Most recent systolic blood pres>/equal 140 mm hg Eden Yañez MAIL READER Work Phone: Start: 05-17-2023 Nitroglycerine 0.4 M g Sublingual eACH, EBOX Eden Yañez MAIL READER Work Phone: Start: 05-17-2023 Pt-focused hlth risk assmt score doc stnd instrm Eden Yañez MAIL READER Work Phone: Start: 05-17-2023 Ct thorax w/contrast material Arabella Dutton DO Work Phone: Start: 05-17-2023 Radiologic exam ches t single view Arabella Dutton DO Work Phone: Start: 05-17-2023 End: 05-17-2023 Ecg routine ecg w/least 12 lds w/i&r Eden Yañez MAIL READER Work Phone: Start: 05-17-2023 End: 05-17-2023 Comprehensive metabolic panel Arabella Dutton DO Work Phone: Start: 01-28-2023 Ecg routine ecg w/le ast 12 lds i&r only Ayo Paul MD Work Phone: Start: 01-28-2023 Lipid 1996 panel - S kay or Plasma Vielka Pennington APRN.MAIL READER Work Phone: Start: 07-28-2022 Ecg routine ecg w/le ast 12 lds i&r only [facility] Provider Start: 11-27-2020 Lipid 1996 panel - S kay or Plasma Risa Warner APRN.MAIL READER Work Phone: Start: 09-27-2020 Adult depression scr eening assessment Risa Warner APRN.MAIL READER Work Phone: Start: 07-29-2020 Mammography Risa smith APRN.MAIL READER Work Phone: Start: 03-28-2019 Colonoscopy Risa smith APRN.MAIL READER Work Phone: Plan of Treatment Date Care Activity Detail Author Start: 05-18-2028 Lipid panel Lipid Screening [facility] Start: 01-29-2028 Lipid 1996 panel - Serum or Plasma Lipid Screening [facility] Start: 01-29-2028 Lipid panel Lipid Screening [facility] Start: 05-29-2026 Diabetes Screening Diabetes Screenin g [facility] Start: 01-28-2026 Diabetes Screening Diabetes Screenin g [facility] Start: 11-27-2025 Lipid 1996 panel - Serum or Plasma Lipid Screening [facility] Start: 11-27-2025 LIPID SCREEN LIPID SCREEN [facility] Start: 07-28-2025 DIABETES SCREEN DIABETES SCREEN [facility] Start: 07-28-2025 Diabetes Screening Diabetes Screenin g [facility] Start: 05-29-2024 BP Controlled (<130/80) BP Controlle d (<130/80) [facility] Start: 05-29-2024 Creatinine measurement Serum Creatin ine [facility] Start: 05-25-2024 Annual PCP Team Finisher Machine jeff Disease Visit Annual PCP Team Chronic Disease Visit [facility] Start: 05-19-2024 Complete blood count Hemoglobin/Cheo tocdet [facility] Start: 05-18-2024 GFR test (Diabetes, CKD 3-4, OR last GFR 15-59) GFR test (Diabetes, CKD 3-4, OR last GFR 15-59) [facility] Start: 05-18-2024 Hepatitis B surface antibody level LDL Cholesterol [facility] Start: 04-25-2024 Annual PCP Team Finisher Machine jeff Disease Visit Annual PCP Team Chronic Disease Visit [facility] Start: 03-28-2024 Colonoscopy COLONOSCOPY [facility] Start: 03-28-2024 COLORECTAL CANCER SCREENING COLORECTAL CANCER SCREENING [facility] Start: 03-28-2024 Screening for malign ant neoplasm of colon [facility] Start: 03-14-2024 BP Controlled (<130/80) BP Controlle d (<130/80) [facility] Start: 01-29-2024 BP Controlled (<130/80) BP Controlle d (<130/80) [facility] Start: 01-29-2024 Complete blood count Hemoglobin/Cheo tocrit [facility] Start: 01-29-2024 Creatinine measurement Serum Creatin ine [facility] Start: 01-29-2024 Hemoglobin/Hematocrit Hemoglobin/Hem atocrit [facility] Start: 01-29-2024 Hepatitis B surface antibody level LDL Cholesterol [facility] Start: 01-29-2024 Serum Creatinine Serum Creatinine Cl [facility] Start: 01-15-2024 BP Controlled (<130/80) BP Controlle d (<130/80) [facility] Start: 11-28-2023 DIABETES SCREEN DIABETES SCREEN [facility] Start: 11-16-2023 End: 01-16-2024 25-hydroxyvitamin D3 [Mass/volume] in Serum or Plasma VITAMIN D 25 HYDROXY Lab Routine Benign hypertension with chronic kidney disease, stage III (HCC) Stage 3b chronic kidney disease (HCC) Hyperlipidemia, unspecified hyperlipidemia type Expected: 11/16/2023, Expires: 01/16/2024 [facility] Work Phone: Comment on above: Expected: 11/16/2023 , Expires: 01/16/2024 Start: 11-16-2023 End: 01-16-2024 ALBUMIN/CREAT RATIO RND UR ALBUMIN/CREAT RATIO RND UR Lab Routine Benign hypertension with chronic kidney disease, stage III (HCC) Stage 3b chronic kidney disease (HCC) Hyperlipidemia, unspecified hyperlipidemia type Expected: 11/16/2023, Expires: 01/16/2024 [facility] Work Phone: Comment on above: Expected: 11/16/2023 , Expires: 01/16/2024 Start: 11-16-2023 End: 01-16-2024 CBC panel - Blood by Automated count CBC Lab Routine Benign hypertension with chronic kidney disease, stage III (HCC) Stage 3b chronic kidney disease (HCC) Hyperlipidemia, unspecified hyperlipidemia type Expected: 11/16/2023, Expires: 01/16/2024 [facility] Work Phone: Comment on above: Expected: 11/16/2023 , Expires: 01/16/2024 Start: 11-16-2023 End: 01-16-2024 Creatinine [Mass/volume] in Urine collected for unspecified duration CREATININE RANDOM UR Lab Routine Benign hypertension with chronic kidney disease, stage III (HCC) Stage 3b chronic kidney disease (HCC) Hyperlipidemia, unspecified hyperlipidemia type Expected: 11/16/2023, Expires: 01/16/2024 [facility] [facility] Work Phone: Comment on above: Expected: 11/16/2023 , Expires: 01/16/2024 Start: 11-16-2023 End: 01-16-2024 Parathyrin.intact [Mass/volume] in Serum or Plasma PTH INTACT BLD Lab Routine Benign hypertension with chronic kidney disease, stage III (HCC) Stage 3b chronic kidney disease (HCC) Hyperlipidemia, unspecified hyperlipidemia type Expected: 11/16/2023, Expires: 01/16/2024 [facility] Work Phone: Comment on above: Expected: 11/16/2023 , Expires: 01/16/2024 Start: 11-16-2023 End: 01-16-2024 Protein [Mass/volume] in Urine PROTEIN RANDOM UR Lab Routine Benign hypertension with chronic kidney disease, stage III (HCC) Stage 3b chronic kidney disease (HCC) Hyperlipidemia, unspecified hyperlipidemia type Expected: 11/16/2023, Expires: 01/16/2024 [facility] Work Phone: Comment on above: Expected: 11/16/2023 , Expires: 01/16/2024 Start: 11-16-2023 End: 01-16-2024 Renal function 2000 panel - Serum or Plasma RENAL FUNCTION PANEL Lab Routine Benign hypertension with chronic kidney disease, stage III (HCC) Stage 3b chronic kidney disease (HCC) Hyperlipidemia, unspecified hyperlipidemia type Expected: 11/16/2023, Expires: 01/16/2024 [facility] Work Phone: Comment on above: Expected: 11/16/2023 , Expires: 01/16/2024 Start: 10-22-2023 ANNUAL PCP TEAM CUSTOM FRAME ASSEMBLER JEFF DISEASE VISIT ANNUAL PCP TEAM CHRONIC DISEASE VISIT [facility] Start: 10-22-2023 BP CONTROLLED (<130/80) BP CONTROLLE D (<130/80) [facility] Start: 10-22-2023 SHINGRIX VACCINE (1 of 2) SHINGRIX VACCINE (1 of 2) [facility] Comment on above: Postponed from 04/04 (Declined at this time) Start: 10-22-2023 Urine microalbumin profile [facility] Comment on above: Postponed from 06/10 (Declined at this time) Start: 07-29-2023 HEMOGLOBIN/HEMATOCRIT HEMOGLOBIN/HEM ATOCRIT [facility] Start: 07-29-2023 SERUM CREATININE SERUM CREATININE Cl [facility] Start: 07-27-2023 End: 10-26-2023 Basic metabolic 2000 panel - Serum or Plasma BASIC METABOLIC PNL Lab Routine Paroxysmal atrial fibrillation (HCC) Expected: 07/27/2023 (Approximate), Expires: 10/26/2023 [facility] Work Phone: Comment on above: Expected: 07/27/2023 (Approximate), Expires: 10/26/2023 Start: 07-27-2023 End: 10-26-2023 CBC W Auto Differential panel - Blood CBC + DIFF Lab Routine Paroxysmal atrial fibrillation (HCC) Expected: 07/27/2023 (Approximate), Expires: 10/26/2023 [facility] Work Phone: Comment on above: Expected: 07/27/2023 (Approximate), Expires: 10/26/2023 Start: 07-27-2023 End: 10-26-2023 Magnesium [Mass/volume] in Serum or Plasma MAGNESIUM BLD Lab Routine Paroxysmal atrial fibrillation (HCC) Expected: 07/27/2023 (Approximate), Expires: 10/26/2023 [facility] Work Phone: Comment on above: Expected: 07/27/2023 (Approximate), Expires: 10/26/2023 Start: 07-27-2023 End: 02-27-2024 Radiologic exam chest 2 views XR CHEST 2V FRONTAL/LAT Radiology Routine Paroxysmal atrial fibrillation (HCC) Expected: 07/27/2023 (Approximate), Expires: 02/27/2024 [facility] Work Phone: Comment on above: Expected: 07/27/2023 (Approximate), Expires: 02/27/2024 Start: 06-13-2023 End: 09-12-2023 Natriuretic peptide.B prohormone N-Terminal [Mass/volume] in Serum or Plasma NT PRO BNP Lab Routine Paroxysmal atrial fibrillation (HCC) Expected: 06/13/2023, Expires: 09/12/2023 [facility] Work Phone: Comment on above: Expected: 06/13/2023 , Expires: 09/12/2023 Start: 05-17-2023 End: 05-17-2023 Patient education based on identified need Health [facility] Start: 02-28-2023 Advance Directive Discussion Advance Directive Discussion [facility] Start: 02-28-2023 Annual Wellness Visi t (Medicare Advantage) Annual Wellness Visit (Medicare Advantage) [facility] Start: 02-28-2023 Depression Assessment Depression Ass essment [facility] Start: 01-27-2023 End: 03-29-2023 Basic metabolic 2000 panel - Serum or Plasma BASIC METABOLIC PNL Lab Routine Paroxysmal atrial fibrillation (HCC) Hypertension, unspecified type Atherosclerotic peripheral vascular disease with intermittent claudication (HCC) Expected: 01/27/2023, Expires: 03/29/2023 [facility] Work Phone: Comment on above: Expected: 01/27/2023 , Expires: 03/29/2023 Start: 01-27-2023 End: 03-29-2023 CBC W Auto Differential panel - Blood CBC + DIFF Lab Routine Paroxysmal atrial fibrillation (HCC) Hypertension, unspecified type Atherosclerotic peripheral vascular disease with intermittent claudication (HCC) Expected: 01/27/2023, Expires: 03/29/2023 [facility] Work Phone: Comment on above: Expected: 01/27/2023 , Expires: 03/29/2023 Start: 01-27-2023 End: 03-29-2023 Magnesium [Mass/volume] in Serum or Plasma MAGNESIUM BLD Lab Routine Paroxysmal atrial fibrillation (HCC) Hypertension, unspecified type Atherosclerotic peripheral vascular disease with intermittent claudication (HCC) Expected: 01/27/2023, Expires: 03/29/2023 [facility] Work Phone: Comment on above: Expected: 01/27/2023 , Expires: 03/29/2023 Start: 01-26-2023 BP CONTROLLED (<130/80) BP CONTROLLE D (<130/80) [facility] Start: 01-21-2023 End: 03-23-2023 Lipid 1996 panel - Serum or Plasma LIPID PANEL BASIC Lab Routine Coronary artery disease involving [place] coronary artery of [place] heart without angina pectoris Expected: 01/21/2023, Expires: 03/23/2023 [facility] Work Phone: Comment on above: Expected: 01/21/2023 , Expires: 03/23/2023 Start: 11-22-2022 End: 07-29-2023 OUTSIDE VENDOR CARDIAC OUTPATIENT EXTENDED RHYTHM RECORDING (WITHOUT TELEMETRY) OUTSIDE VENDOR CARDIAC OUTPATIENT EXTENDED RHYTHM RECORDING (WITHOUT TELEMETRY) Holter Routine Paroxysmal atrial fibrillation (HCC) Hypertension, unspecified type Atherosclerotic peripheral vascular disease with intermittent claudication (HCC) Expected: 11/22/2022, Expires: 07/29/2023 [facility] Work Phone: Comment on above: Expected: 11/22/2022 , Expires: 07/29/2023 Start: 10-29-2022 Influenza vaccination [facility] Start: 10-26-2022 HEMOGLOBIN/HEMATOCRIT HEMOGLOBIN/HEM ATOCRIT [facility] Start: 10-26-2022 SERUM CREATININE SERUM CREATININE Cl [facility] Start: 10-12-2022 ANNUAL PCP TEAM CUSTOM FRAME ASSEMBLER JEFF DISEASE VISIT ANNUAL PCP TEAM CHRONIC DISEASE VISIT [facility] Start: 07-26-2022 End: 09-25-2022 Basic metabolic 2000 panel - Serum or Plasma BASIC METABOLIC PNL Lab Routine Paroxysmal atrial fibrillation (HCC) History of ST elevation myocardial infarction (STEMI) PAF (paroxysmal atrial fibrillation) (HCC) Expected: 07/26/2022, Expires: 09/25/2022 [facility] Work Phone: Comment on above: Expected: 07/26/2022 , Expires: 09/25/2022 Start: 07-26-2022 End: 09-25-2022 CBC W Auto Differential panel - Blood CBC + DIFF Lab Routine Paroxysmal atrial fibrillation (HCC) History of ST elevation myocardial infarction (STEMI) PAF (paroxysmal atrial fibrillation) (HCC) Expected: 07/26/2022, Expires: 09/25/2022 [facility] Work Phone: Comment on above: Expected: 07/26/2022 , Expires: 09/25/2022 Start: 07-26-2022 End: 09-25-2022 Magnesium [Mass/volume] in Serum or Plasma MAGNESIUM BLD Lab Routine Paroxysmal atrial fibrillation (HCC) History of ST elevation myocardial infarction (STEMI) PAF (paroxysmal atrial fibrillation) (HCC) Expected: 07/26/2022, Expires: 09/25/2022 [facility] Work Phone: Comment on above: Expected: 07/26/2022 , Expires: 09/25/2022 Start: 04-28-2022 End: 01-26-2023 OUTSIDE VENDOR CARDIAC OUTPATIENT EXTENDED RHYTHM RECORDING (WITHOUT TELEMETRY) OUTSIDE VENDOR CARDIAC OUTPATIENT EXTENDED RHYTHM RECORDING (WITHOUT TELEMETRY) Holter Routine Paroxysmal atrial fibrillation (HCC) History of ST elevation myocardial infarction (STEMI) PAF (paroxysmal atrial fibrillation) (HCC) Expected: 04/28/2022, Expires: 01/26/2023 [facility] Work Phone: Comment on above: Expected: 04/28/2022 , Expires: 01/26/2023 Start: 03-23-2022 ANNUAL PCP TEAM CUSTOM FRAME ASSEMBLER JEFF DISEASE VISIT ANNUAL PCP TEAM CHRONIC DISEASE VISIT [facility] Start: 03-23-2022 BP CONTROLLED (<130/80) BP CONTROLLE D (<130/80) [facility] Start: 02-28-2022 ADVANCE DIRECTIVE DISCUSSION ADVANCE DIRECTIVE DISCUSSION [facility] Start: 02-28-2022 DEPRESSION ASSESSMENT DEPRESSION ASS ESSMENT [facility] Start: 02-10-2022 End: 04-12-2022 Lipid 1996 panel - Serum or Plasma LIPID PANEL BASIC Lab Routine Mixed hyperlipidemia Expected: 02/10/2022 (Approximate), Expires: 04/12/2022 [facility] Work Phone: Comment on above: Expected: 02/10/2022 (Approximate), Expires: 04/12/2022 Start: 11-27-2021 Hepatitis B surface antibody level LDL CHOLESTEROL [facility] Start: 11-27-2021 SERUM CREATININE SERUM CREATININE Cl [facility] Start: 10-29-2021 Influenza vaccination INFLUENZA (#1) [facility] Start: 09-27-2021 Adult depression screening assessment DEPRESSION SCREENING [facility] Start: 09-18-2021 COVID-19 VACCINE (#1) COVID-19 VACCI NE (#1) [facility] Comment on above: Postponed from 04/04 (Declined at this time) Start: 09-18-2021 COVID-19 VACCINE (1) COVID-19 VACCIN E (1) [facility] Comment on above: Postponed from 04/04 (Declined at this time) Start: 07-29-2021 Mammography [facility] Start: 07-29-2021 Screening for malign ant neoplasm of breast Mammogram Screening [facility] Start: 07-18-2021 HEMOGLOBIN/HEMATOCRIT HEMOGLOBIN/HEM ATOCRIT [facility] Start: 03-20-2021 BP CONTROLLED (<130/80) BP CONTROLLE D (<130/80) [facility] Start: 02-28-2021 ADVANCE DIRECTIVE DISCUSSION ADVANCE DIRECTIVE DISCUSSION [facility] Start: 02-28-2021 DEPRESSION ASSESSMENT DEPRESSION ASS ESSMENT [facility] Start: 06-10-2016 DTaP/Tdap/Td vaccine (1 - Tdap) DTaP/Tdap/Td vaccine (1 - Tdap) [facility] Start: 06-10-2016 Urine microalbumin profile DTAP,TDAP,TD (1 - Tdap) [facility] Start: 2011 Respiratory Syncytia l Virus (RSV) or age 60 yrs+ (1 - 1-dose 60+ series) Respiratory Syncytial Virus (RSV) or age 60 yrs+ (1 - 1-dose 60+ series) [facility] Start: 2011 RSV Vaccine (1 - 1-d ose 60+ series) RSV Vaccine (1 - 1-dose 60+ series) [facility] Start: 2001 Screening for malign ant neoplasm of breast Breast cancer screen [facility] Start: 2001 Shingles vaccine (1 of 2) Shingles vaccine (1 of 2) [facility] Start: 2001 SHINGRIX VACCINE (1 of 2) SHINGRIX VACCINE (1 of 2) [facility] Start: 1996 COLOGUARD (FIT-DNA) COLOGUARD (FIT-D NA) [facility] Start: [address] COLONOGRAPHY [facility] Start: 1996 FECAL OCCULT BLOOD FECAL OCCULT BLOO D [facility] Start: 1996 Screening for malign ant neoplasm of colon [facility] Start: 1996 SIGMOIDOSCOPY SIGMOIDOSCOPY [facility] Start: 1969 Hepatitis C screening Hepatitis C sc reen [employer] Start: 1963 Depression Screen Depression Screen [employer] Start: 1961 Lipid panel Lipids [facility] Start: 1951 COVID-19 VACCINE (#1) COVID-19 VACCI NE (#1) [facility] End: 08-24-2023 CBC W Auto Differential panel - Blood CBC auto differential Lab Routine Tomorrow AM for 99 Occurrences starting 05/18/2023 until 08/24/2023, 2 completed [employer] Comment on above: Tomorrow AM for 99 O ccurrences starting 05/18/2023 until 08/24/2023, 2 completed End: 08-24-2023 Comprehensive Metabolic Panel w/ Reflex to MG Comprehensive Metabolic Panel w/ Reflex to MG Lab Routine Tomorrow AM for 99 Occurrences starting 05/18/2023 until 08/24/2023, 2 completed [employer] Comment on above: Tomorrow AM for 99 O ccurrences starting 05/18/2023 until 08/24/2023, 2 completed End: 12-11-2022 Ct orbit sella/post fossa/ear w/o contrast matrl CT TEMP BONES WO IVCON Radiology Routine Pulsatile tinnitus, left ear Lightheadedness 1 Occurrences starting 11/11/2021 until 12/11/2022 [facility] Work Phone: Comment on above: 1 Occurrences starti ng 11/11/2021 until 12/11/2022 End: 05-18-2023 Culture, Urine [employer] Comment on above: One Time for 1 Occur rences starting 05/18/2023 until 05/18/2023 End: 08-11-2022 ECG COMPLETE ECG COMPLETE ECG Routine Paroxysmal atrial fibrillation (HCC) 1 Occurrences starting 08/11/2021 until 08/11/2022 [facility] Work Phone: Comment on above: 1 Occurrences starti ng 08/11/2021 until 08/11/2022 End: 01-26-2023 ECG COMPLETE ECG COMPLETE ECG Routine Paroxysmal atrial fibrillation (HCC) History of ST elevation myocardial infarction (STEMI) PAF (paroxysmal atrial fibrillation) (HCC) 1 Occurrences starting 01/26/2022 until 01/26/2023 [facility] Work Phone: Comment on above: 1 Occurrences starti ng 01/26/2022 until 01/26/2023 End: 07-29-2023 ECG COMPLETE ECG COMPLETE ECG Routine Paroxysmal atrial fibrillation (HCC) Hypertension, unspecified type Atherosclerotic peripheral vascular disease with intermittent claudication (HCC) 1 Occurrences starting 07/28/2022 until 07/29/2023 [facility] Work Phone: Comment on above: 1 Occurrences starti ng 07/28/2022 until 07/29/2023 ECG COMPLETE ECG COMPLETE ECG 01/28/2023 10:20 AM EST [facility] End: 05-18-2023 Echo (TTE) complete (PRN contrast/bubble/strain/ 3D) Echo (TTE) complete (PRN contrast/bubble/strain/3D) CV Echocardiography Routine Chest pain, unspecified type Right sided abdominal pain Coronary artery disease involving [place] coronary artery of [place] tribe heart without angina pectoris Mixed hyperlipidemia Essential hypertension Acute deep vein thrombosis (DVT) of distal vein of right lower extremity (HCC) One Time for 1 Occurrences starting 05/18/2023 until 05/18/2023 [employer] Comment on above: One Time for 1 Occur rences starting 05/18/2023 until 05/18/2023 EKG 12 Lead EKG 12 Lead ECG Routine 05/19/2023 5:18 AM EDT [employer] End: 05-19-2023 Hemoglobin A1c/Hemoglobin.total in Blood Hemoglobin A1C Lab Routine Tomorrow AM for 1 Occurrences starting 05/19/2023 until 05/19/2023 [employer] Comment on above: Tomorrow AM for 1 Oc currences starting 05/19/2023 until 05/19/2023 Hemoglobin A1c/Hemoglobin.total in Blood Hemoglobin A1C Lab Routine 05/19/2023 5:30 AM EDT [employer] End: 05-19-2023 Lipid panel Lipid Panel Lab Routine Tomorrow AM for 1 Occurrences starting 05/19/2023 until 05/19/2023 [employer] Comment on above: Tomorrow AM for 1 Oc currences starting 05/19/2023 until 05/19/2023 Lipid panel Lipid Panel Lab Routine 05/19/2023 5:30 AM EDT [employer] End: 04-02-2023 ESTHER SCREENING ESTHER SCREENING Radiology Routine Encounter for screening mammogram for breast cancer 1 Occurrences starting 03/03/2022 until 04/02/2023 [facility] Work Phone: Comment on above: 1 Occurrences starti ng 03/03/2022 until 04/02/2023 End: 03-03-2024 ESTHER SCREENING ESTHER SCREENING Radiology Routine Encounter for screening mammogram for breast cancer 1 Occurrences starting 02/02/2023 until 03/03/2024 [facility] Work Phone: Comment on above: 1 Occurrences starti ng 02/02/2023 until 03/03/2024 MR Abdomen WO and W contrast IV MRI ABDOMEN W WO CONTRAST MRCP Imaging Routine 05/18/2023 1:05 PM EDT [employer] OUTSIDE VENDOR CARDI AC OUTPATIENT EXTENDED RHYTHM RECORDING (WITHOUT TELEMETRY) OUTSIDE VENDOR CARDIAC OUTPATIENT EXTENDED RHYTHM RECORDING (WITHOUT TELEMETRY) Holter Routine Paroxysmal atrial fibrillation (HCC) Ordered: 06/26/2021 [facility] Work Phone: Comment on above: Ordered: 06/26/2021 OUTSIDE VENDOR CARDI AC OUTPATIENT EXTENDED RHYTHM RECORDING (WITHOUT TELEMETRY) OUTSIDE VENDOR CARDIAC OUTPATIENT EXTENDED RHYTHM RECORDING (WITHOUT TELEMETRY) Holter Routine Paroxysmal atrial fibrillation (HCC) History of ST elevation myocardial infarction (STEMI) PAF (paroxysmal atrial fibrillation) (HCC) Ordered: 01/26/2022 [facility] Work Phone: Comment on above: Ordered: 01/26/2022 OUTSIDE VENDOR CARDI AC OUTPATIENT EXTENDED RHYTHM RECORDING (WITHOUT TELEMETRY) OUTSIDE VENDOR CARDIAC OUTPATIENT EXTENDED RHYTHM RECORDING (WITHOUT TELEMETRY) Holter Routine Paroxysmal atrial fibrillation (HCC) Ordered: 01/28/2023 [facility] Work Phone: Comment on above: Ordered: 01/28/2023 Oxygen therapy [[facility] Data Set] Initiate Oxygen Therapy Protocol Respiratory Care Routine As Needed until discontinued starting 05/17/2023 [facility] Comment on above: As Needed until disc ontinued starting 05/17/2023 End: 10-30-2022 PVR ANK PRESS [facility] PVR ANK PRESS [facility] Vascular Lab Routine PVD (peripheral vascular disease) (HCC) 1 Occurrences starting 10/30/2021 until 10/30/2022 [facility] Work Phone: Comment on above: 1 Occurrences starti ng 10/30/2021 until 10/30/2022 End: 11-16-2023 PVR ANK PRESS [facility] PVR ANK PRESS [facility] Vascular Lab Routine PVD (peripheral vascular disease) (HCC) Aortoiliac occlusive disease (HCC) Carotid artery stenosis, asymptomatic, bilateral 1 Occurrences starting 11/15/2022 until 11/16/2023 [facility] Work Phone: Comment on above: 1 Occurrences starti ng 11/15/2022 until 11/16/2023 End: 02-25-2023 Radiologic exam chest 2 views XR CHEST 2V FRONTAL/LAT Radiology Routine Paroxysmal atrial fibrillation (HCC) History of ST elevation myocardial infarction (STEMI) PAF (paroxysmal atrial fibrillation) (HCC) 1 Occurrences starting 01/26/2022 until 02/25/2023 [facility] Work Phone: Comment on above: 1 Occurrences starti ng 01/26/2022 until 02/25/2023 End: 01-15-2024 [facility] Audiology Routine Pulsatile tinnitus, left ear 1 Occurrences starting 01/14/2023 until 01/15/2024 [facility] Work Phone: Comment on above: 1 Occurrences starti ng 01/14/2023 until 01/15/2024 End: 11-16-2023 US ABD AORTA COMPLETE [facility] US ABD AORTA COMPLETE [facility] Vascular Lab Routine PVD (peripheral vascular disease) (HCC) Aortoiliac occlusive disease (HCC) Carotid artery stenosis, asymptomatic, bilateral 1 Occurrences starting 11/15/2022 until 11/16/2023 [facility] Work Phone: Comment on above: 1 Occurrences starti ng 11/15/2022 until 11/16/2023 End: 11-16-2023 US CAROTID ARTERIES [facility] US CAROTID ARTERIES [facility] Vascular Lab Routine PVD (peripheral vascular disease) (HCC) Aortoiliac occlusive disease (HCC) Carotid artery stenosis, asymptomatic, bilateral 1 Occurrences starting 11/15/2022 until 11/16/2023 [facility] Work Phone: Comment on above: 1 Occurrences starti ng 11/15/2022 until 11/16/2023 [facility] Immunizations Immunization Date Immunization Notes Care Provider Fa [facility] 11-27-2020 influenza, high-dose , quadrivalent vaccine (FLUZONE HIGH DOSE QUADRIVALENT) Risa Warner APRN.MAIL READER Work Phone: [facility] 11-27-2020 influenza virus vacc ine, unspecified formulation Risa Warner APRN.MAIL READER Work Phone: [facility] 03-20-2020 influenza, high-dose , quadrivalent vaccine (FLUZONE HIGH DOSE QUADRIVALENT) Risa Warner APRN.MAIL READER Work Phone: [facility] 12-01-2018 influenza, high dose seasonal, preservative-free Risa Warner APRN.MAIL READER Work Phone: [facility] Work Phone: 12-01-2018 pneumococcal polysaccharide vaccine, 23 valent Risa Warner APRN.MAIL READER Work Phone: [facility] Work Phone: 01-25-2017 influenza, high dose seasonal, preservative-free Risa Warner APRN.CNP Work Phone: [facility] 06-09-2016 pneumococcal conjuga te vaccine, 13 valent Risa Warner APRN.CNP Work Phone: [facility] 06-09-2016 tetanus and diphther ia toxoids, adsorbed, preservative free, for adult use (5 Lf of tetanus toxoid and 2 Lf of diphtheria toxoid) Risa Warner APRN.CNP Work Phone: [facility] Payers Date Payer Category Payer Unknown [id number] 2022 Unknown [id number] 2021 Medicare UHC AARP MEDICAR E [facility] AAR MEDICARE O [id number] 2021-Present [phone] [address] [address] [place] [address] O [id number] 2021 Medicare [id number] 2021 Medicare [id number] 2015 Unknown [id number] 1959 Medicare [id number] 1959 Private Health Insurance [id number] 1950 Unknown [id number] 1950 Unknown [id number] 1950 Unknown [id number] [facility] [id number] Social History Date Type Detail Facility Start: 02-17-2016 End: 11-10-2021 Tobacco smoking status NHIS Ex-smoker [facility] Work Phone: End: 02-28-2009 History of tobacco use Current smoker [facility] Work Phone: End: 02-28-2009 History of tobacco use Cigarette Smoker [facility] Work Phone: Start: 02-17-2016 End: 07-28-2022 Cigarettes smoked current (pack per day) - Reported 1.5 [facility] Start: 02-17-2016 End: 11-10-2021 Tobacco use and exposure Smokeless tobacco non-user [facility] Work Phone: Start: 03-23-2021 End: 04-25-2023 Alcohol intake Current drinker of alcohol (finding) [facility] Start: 09-28-2020 History SDOH Alcohol Frequency 1 [facility] Start: 09-28-2020 History SDOH Alcohol Std Drinks 98 [facility] Start: 08-19-2015 End: 06-30-2016 History SDOH Alcohol Comment social [facility] Start: 09-28-2020 History SDOH Social Connections Phone 3 [facility] Start: 09-28-2020 History SDOH Social Connections Get Together 2 [facility] Start: 09-28-2020 History SDOH Social Connections Living 4 [facility] Start: 09-28-2020 History SDOH Physica l Activity DPW 5 [facility] Start: 09-27-2020 Education 10 [facility] Start: 1950 Sex Assigned At Female [facility] Start: 06-07-2021 End: 01-26-2022 Exposure to SARS-CoV-2 (event) Not sure [facility] Start: 10-02-2021 End: 11-11-2021 Exposure to SARS-CoV-2 (event) Unable to assess [facility] Work Phone: Start: 09-27-2020 End: 07-28-2022 Social connection and isolation panel [facility] Do you belong to any clubs or organizations such as bahai groups, unions, fraternal or athletic groups, or school groups? Patient refused [facility] [facility] Are you now , , , , never or living with a partner? [facility] How often to you hav e a drink containing alcohol? Never [facility] Do you feel stress - tense, restless, nervous, or anxious, or unable to sleep at night because your mind is troubled all the time - these days [OSQ] Not at all [facility] (I/We) worried wheth er (my/our) food would run out before (I/we) got money to buy more. Never true [facility] In the past 12 month s, was there a time when you were not able to pay the mortgage or rent on time? No [facility] Start: 03-26-2019 Gender identity Identifies as female gender (finding) [facility] Assertion Sexually active (finding) [facility] Assertion Gender identity finding (finding) [facility] Assertion Finding of sexua l orientation (finding) [facility] Tobacco smoking status Unknown i f ever smoked [facility] Work Phone: Start: 08-19-2015 Tobacco use and exposure Former smokeless tobacco user [employer] End: 02-28-2009 History of tobacco use User of [employer] Start: 1950 Sex Assigned At Not on file [employer] NEGATED: Highlighted row Assertion Current drinker of alcohol (finding) [facility] NEGATED: Highlighted row Assertion Finding relating to drug misuse behavior (finding) [facility] NEGATED: Highlighted row Assertion Exposure to pollution (event) [facility] NEGATED: Highlighted row Assertion [facility] Mental Status Date Assessment Result Facility Cognitive function Oriented to t sandra, place, and person Oriented to person, time and place (finding) [facility] Work Phone: Clinical Notes 08-17-2018 to 05-30-2023 Stephanie Gutiérrez APRN.[facility] - 05/30/2023 12:57 PM EDTTelephone Encounter - Carlos Zapien MA - 05/27/2023 9:17 AM EDTTelephone Encounter - Kayla Monterroso MD - 05/26/2023 8:36 PM EDTAttachments Note Date & Type Note Facility 05-30-2023 Note HNO ID: [id number] Author: STEPHANIE GUTIÉRREZ APRN.NE Service: ? Author Type: Nurse Practitioner Type: Progress Notes Filed: 05/30/2023 17:24 Note Text: [facility] [place] Ronny Phelan Department of Cardiovascular Medicine SECTION OF CLINICAL CARDIOLOGY OUTPATIENT VISIT DATE May 30, 2023 OUTPATIENT VISIT TYPE ESTABLISHED PRIMARY CARE PHYSICIAN: Kayla Monterroso [address] [place] [address] REFERRING PHYSICIAN: No referring provider defined for this encounter. CHIEF COMPLAINT: Follow up HISTORY OF PRESENT ILLNESS: Ms. Herring is a 73 year old female who presents today for a cardiovascular medicine follow-up visit. Established patient of Dr. Paul and Dr. Gu for h/o paroxysmal atrial fibrillation, CAD sp PCI to LAD (2009), preserved LV systolic function (Echo 04/2021: EF ~58%), mild MR. Other PMH: HTN, PVD, CKD stage 3, tobacco use. Last OV w/ Dr. Paul 01/31/23. Since then, Ms. Herring had an admission to [facility] in [place], see hospital course below. Hospital Course: Monica Herring is a 73 y.o. female admitted with right-sided abdomen pain. She presented to the emergency room with right-sided chest pain. Pain radiated to her back. Was worse with deep breath. She denied shortness of breath. She denied nausea vomiting or lightheadedness. She denied diarrhea or constipation. She does have history of ID with stent placement, CKD, PAF, hypertension, hyperlipidemia and. Nephrotic hematoma. Troponins were 19 and 19 and 18. Labs were stable. CT abdomen and pelvis showed cystic hypodense nodules of the pancreatic body and use an 8 process measuring 7 mm and 13 mm respectively. EKG showed sinus rhythm with no ST changes. During patient's admission gallbladder ultrasound was completed which showed common bile duct up to 8 mm in diameter with no evidence of cholecystitis or cholelithiasis. She had a 4.2 cm exophytic cyst in the right pole of the kidney. Patient completed MRCP which showed mild biliary duct dilatation with common bile duct measuring up to 10 mm. Possible debris within the distal common bile duct without obvious choledocholithiasis. Patient did have scattered cystic lesions within the pancreas with the largest measuring up to 1.2 cm recommendation is follow-up in 2 years with MRI/MRCP. I did call up and speak with GI team at [facility] and spoke with Aria SAAVEDRA who reported that transfer was not indicated. She explained that the common bile duct can be dilated and have debris in there due to age, chronic narcotic use or post cholecystectomy. She recommended outpatient follow-up to include pancreatic cyst. I did speak with the patient and the significant other who are agreeable to this plan of care. At this time they plan on following up at [facility] with her primary care who will then follow-up with GI at [facility]. They will have their primary care take care of this. During her hospitalization patient went into atrial fibrillation with RVR. She does have history of atrial fibrillation in the past and recently was stopped on amiodarone. Patient was taken off Xarelto due to. Nephrotic hematoma. Patient was placed in ICU after receiving a dose of Cardizem as well as IV Lopressor and was loaded with IV amiodarone. Patient converted back to normal sinus rhythm within 40 minutes of medication. She was placed on amiodarone 200 mg daily and will continue on discharge. She will follow-up with her inside upholsterer as an outpatient for further treatment. Plan will be to discharge today she will follow-up with providers as discussed. Hemodynamically she is stable. Pain is improved and resolved. We will take her off narcotics and put her on Naprosyn 250 mg twice a day for 10 days only and will put her on PPI. She is here today for EP follow up regarding recurrence of AF. Accompanied today by her significant other. Since discharge, Ms. Herring reports feeling tired and short of breath, has a plastic taste in her mouth, feels tired, and has noticed worsening ankle edema. She is back in NSR during today's, tolerating Amiodarone without issue. She is concerned about being on Amiodarone detention as she experienced hair loss with it in the past. She denies any other CV symptoms such as abdominal distention, chest pain, orthopnea, cough, palpitations, PND, lightheadedness or syncope. Significant other very disruptive and displeased with care patient has received through [facility], frequently interrupting, yelling, swearing (although denies doing so after being advised that he will be removed from the visit if he continues to be inappropriate), states patient needs a PVI and Watchman procedure immediately or she will , refusing to be told that these procedures are elective and require adequate planning and evaluation to ensure patient is a good candidate. Significant other states th (more content not included)... [facility] 05-30-2023 History of Presen t illness Narrative Images from the original note were not included. [facility] [place] Ronny Phelan Department of Cardiovascular Medicine SECTION OF CLINICAL CARDIOLOGY OUTPATIENT VISIT DATE May 30, 2023 OUTPATIENT VISIT TYPE ESTABLISHED PRIMARY CARE PHYSICIAN: Kayla Monterroso [address] [place] [address] REFERRING PHYSICIAN: No referring provider defined for this encounter. CHIEF COMPLAINT: Follow up HISTORY OF PRESENT ILLNESS: Ms. Herring is a 73 year old female who presents today for a cardiovascular medicine follow-up visit. Established patient of Dr. Paul and Dr. Gu for h/o paroxysmal atrial fibrillation, CAD sp PCI to LAD (2009), preserved LV systolic function (Echo 04/2021: EF ~58%), mild MR. Other PMH: HTN, PVD, CKD stage 3, tobacco use. Last OV w/ Dr. Paul 01/31/23. Since then, Ms. Herring had an admission to [facility] in [place], see hospital course below. Hospital Course: Monica Herring is a 73 y.o. female admitted with right-sided abdomen pain. She presented to the emergency room with right-sided chest pain. Pain radiated to her back. Was worse with deep breath. She denied shortness of breath. She denied nausea vomiting or lightheadedness. She denied diarrhea or constipation. She does have history of ID with stent placement, CKD, PAF, hypertension, hyperlipidemia and. Nephrotic hematoma. Troponins were 19 and 19 and 18. Labs were stable. CT abdomen and pelvis showed cystic hypodense nodules of the pancreatic body and use an 8 process measuring 7 mm and 13 mm respectively. EKG showed sinus rhythm with no ST changes. During patient's admission gallbladder ultrasound was completed which showed common bile duct up to 8 mm in diameter with no evidence of cholecystitis or cholelithiasis. She had a 4.2 cm exophytic cyst in the right pole of the kidney. Patient completed MRCP which showed mild biliary duct dilatation with common bile duct measuring up to 10 mm. Possible debris within the distal common bile duct without obvious choledocholithiasis. Patient did have scattered cystic lesions within the pancreas with the largest measuring up to 1.2 cm recommendation is follow-up in 2 years with MRI/MRCP. I did call up and speak with GI team at [facility] and spoke with Aria SAAVEDRA who reported that transfer was not indicated. She explained that the common bile duct can be dilated and have debris in there due to age, chronic narcotic use or post cholecystectomy. She recommended outpatient follow-up to include pancreatic cyst. I did speak with the patient and the significant other who are agreeable to this plan of care. At this time they plan on following up at [facility] with her primary care who will then follow-up with GI at [facility]. They will have their primary care take care of this. During her hospitalization patient went into atrial fibrillation with RVR. She does have history of atrial fibrillation in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 the event this information is protected by the Federal Confidentiality of Alcohol and Drug Abuse Patient Records regulations: The Federal rules restrict any use of the information to criminally investigate or prosecute any alcohol or drug abuse patient.[facility] CenterIn the event this information is protected by the Federal Confidentiality of Alcohol and Drug Abuse Patient Records regulations: The Federal rules restrict any use of the information to criminally investigate or prosecute any alcohol or drug abuse patient.[facility] CenterIn the event this information is protected by the Federal Confidentiality of Alcohol and Drug Abuse Patient Records regulations: The Federal rules restrict any use of the information to criminally investigate or prosecute any alcohol or drug abuse patient.[facility] CenterIn the event this information is protected by the Federal Confidentiality of Alcohol and Drug Abuse Patient Records regulations: The Federal rules restrict any use of the information to criminally investigate or prosecute any alcohol or drug abuse patient.[facility] CenterIn the event this information is protected by the Federal Confidentiality of Alcohol and Drug Abuse Patient Records regulations: The Federal rules restrict any use of the information to criminally investigate or prosecute any alcohol or drug abuse patient.[facility] CenterIn the event this information is protected by the Federal Confidentiality of Alcohol and Drug Abuse Patient Records regulations: The Federal rules restrict any use of the information to criminally investigate or prosecute any alcohol or drug abuse patient.[facility] CenterIn the event this information is protected by the Federal Confidentiality of Alcohol and Drug Abuse Patient Records regulations: The Federal rules restrict any use of the information to criminally investigate or prosecute any alcohol or drug abuse patient.[facility] CenterIn the event this information is protected by the Federal Confidentiality of Alcohol and Drug Abuse Patient Records regulations: The Federal rules restrict any use of the information to criminally investigate or prosecute any alcohol or drug abuse patient.[facility] CenterIn the event this information is protected by the Federal Confidentiality of Alcohol and Drug Abuse Patient Records regulations: The Federal rules restrict any use of the information to criminally investigate or prosecute any alcohol or drug abuse patient.[facility] CenterIn the event this information is protected by the Federal Confidentiality of Alcohol and Drug Abuse Patient Records regulations: The Federal rules restrict any use of the information to criminally investigate or prosecute any alcohol or drug abuse patient.[facility] CenterIn the event this information is protected by the Federal Confidentiality of Alcohol and Drug Abuse Patient Records regulations: The Federal rules restrict any use of the information to criminally investigate or prosecute any alcohol or drug abuse patient.[facility] CenterIn the event this information is protected by the Federal Confidentiality of Alcohol and Drug Abuse Patient Records regulations: The Federal rules restrict any use of the information to criminally investigate or prosecute any alcohol or drug abuse patient.[facility] CenterIn the event this information is protected by the Federal Confidentiality of Alcohol and Drug Abuse Patient Records regulations: The Federal rules restrict any use of the information to criminally investigate or prosecute any alcohol or drug abuse patient.[facility] Reason for Visit (unrecogniz ed [...] HIGH MDM 60-[place] [address] [place] [address] Referral ID Status Reason Start Date Expiration Date Visits Requested Visits Authorized [id number] Pending Review PCP Requested Referral 10/12/2021 10/12/2022 1 1 Reason Comments Follow Up Virtual Reason Comments Follow Up Reason Onset Date Comments Population Health Navigation Outreach 12/17/2021 Spouse of [facility] outreach pt Reason Comments F/U 6 Month Reason Onset Date Comments Refill Request 05/26/2022 Reason Comments Follow Up Reason Comments CPE (Medicare) Reason Comments Established Patient Follow Up Reason Onset Date Comments [facility] Navigation Outreach 03/31/2023 Robert [facility]DYE Outreach Reason Comments Chest Pain Sharp stabbing right sided chest pains starting 0300. Took 2 325mg asa when pain started. 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 Given 3 baby asa in office at 1122 and was given one nitro at 1129 with some improvement. Denies any n/v, slightly sob. Specialty Diagnoses / Procedures Referred By Manuel preston Referred To Contact Diagnoses Right sided abdominal pain Luis Estrella MD [address] [facility], [place] [address] [facility] [address] [place] [address] Referral ID Status Reason Start Date Expiration Date Visits Re quested Visits Authorized [id number] 1 1 Reason Comments ER/Urgent Referral Reason Comments Orders [facility] Care Teams (unrecognized sec tion and content) Clinical Academic Allergist Relationship Specialty [place] [address] [place] [address] PCP - General Internal Medicine 01/30/19 Janey Patricia DO [address] [facility] [place] [address] Primary Staff Physician Nephrology 03/26/21 Clinical Academic Allergist Relationship Specialty Start Date [place] [id number] [place] [address] PCP - General Internal Medicine 01/30/19 Janey Patricia DO [address] [place] [address] Primary Staff Physician Nephrology 03/26/21 Clinical Academic Allergist Relationship Specialty Start Date End Date Kayla Monterroso MD [id number] [place] [address] PCP - General Internal Medicine 01/30/19 Janey Patricia DO [address] [place] [address] Primary Staff Physician Nephrology 03/26/21 Clinical Academic Allergist Relationship Specialty Start Date End Date Kayla Monterroso MD [id number] [place] [address] PCP - General Internal Medicine 01/30/19 Janey Patricia DO [address] [place] [address] Primary Staff Physician Nephrology 03/26/21 Clinical Academic Allergist Relationship Specialty Start Date End Date Kayla Monterroso MD [id number] [place] [address] PCP - General Internal Medicine 01/30/19 Janey Patricia DO [address] [place] [address] Primary Staff Physician Nephrology 03/26/21 Clinical Academic Allergist Relationship Specialty Start Date End Date Kayla Monterroso MD [id number] [place] [address] PCP - General Internal Medicine 01/30/19 Janey Patricia DO [address] [place] [address] Primary Staff Physician Nephrology 03/26/21 Clinical Academic Allergist Relationship Specialty Start Date End Date Kayla Monterroso [place] [id number] [place] [address] PCP - General Internal Medicine 01/30/19 Janey Patricia, [address] [place] [address] Primary Staff Physician Nephrology 03/26/21 Clinical Academic Allergist Relationship Specialty Start Date End Date Kayla Monterroso MD [id number] [place] [id number] PCP - General Internal Medicine 01/30/19 Janey Patricia DO [address] [place] [address] Primary Staff Physician Nephrology 03/26/21 Clinical Academic Allergist Relationship Specialty Start Date End Date Kayla Monterroso MD [id number] [place] [address] PCP - General Internal Medicine 01/30/19 Janey Patricia DO [address] [place] [address] Primary Staff Physician Nephrology 03/26/21 Clinical Academic Allergist Relationship Specialty Start Date End Date Kayla Monterroso MD [id number] [place] [address] PCP - General Internal Medicine 01/30/19 Janey Patricia DO [address] [place] [address] Primary Staff Physician Nephrology 03/26/21 Clinical Academic Allergist Relationship Specialty [place] [address] [place] [address] PCP - General Internal Medicine 01/30/19 Janey Patricia DO [address] [place] [address] Primary Staff Physician Nephrology 03/26/21 Clinical Academic Allergist Relationship Specialty Start Date End Date Kayla Monterroso MD [id number] [place] [address] PCP - General Internal Medicine 01/30/19 Janey Patricia DO [address] [place] [address] Primary Staff Physician Nephrology 03/26/21 Clinical Academic Allergist Relationship Specialty [place] [address] [place] [address] PCP - General Internal Medicine 01/30/19 Janey Patricia DO [address] [place] [address] Primary Staff Physician Nephrology 03/26/21 Clinical Academic Allergist Relationship Specialty Start Date End Date Kayla Monterroso MD [address] [place] [id number] PCP - General Internal Medicine 01/30/19 Janey Patricia DO [address] [place] [address] Primary Staff Physician Nephrology 03/26/21 Clinical Academic Allergist Relationship Specialty [place] [address] [place] [address] PCP - General Internal Medicine 01/30/19 Janey Patricia DO [address] [place] [address] Primary Staff Physician Nephrology 03/26/21 Clinical Academic Allergist Relationship Specialty Start [place] [address] [place] [address] PCP - General Internal Medicine 01/30/19 Janey Patricia DO [address] [place] [address] Primary Staff Physician Nephrology 03/26/21 Clinical Academic Allergist Relationship Specialty [place] [address] [place] [address] PCP - General Internal Medicine 01/30/19 Janey Patricia DO [address] [place] [address] Primary Staff Physician Nephrology 03/26/21 Clinical Academic Allergist Relationship Specialty [place] [address] [place] [address] PCP - General Internal Medicine 01/30/19 Janey Patricia DO [address] [place] [address] Primary Staff Physician Nephrology 03/26/21 Clinical Academic Allergist Relationship Specialty [place] [address] [place] [address] PCP - General Internal Medicine 01/30/19 Janey Patricia DO [address] [place] [address] Primary Staff Physician Nephrology 03/26/21 Clinical Academic Allergist Relationship Specialty [place] [address] [place] [address] PCP - General Internal Medicine 01/30/19 Janey Patricia DO [address] [place] [address] Primary Staff Physician Nephrology 03/26/21 Clinical Academic Allergist Relationship Specialty [place] [address] [place] [address] PCP - General Internal Medicine 01/30/19 Janey Patricia DO [address] [place] [address] Primary Staff Physician Nephrology 03/26/21 Clinical Academic Allergist Relationship Specialty [place] [address] [place] [address] PCP - General Internal Medicine 05/18/23 Clinical Academic Allergist Relationship Specialty [place] [address] [place] [address] PCP - General Internal Medicine 01/30/19 Janey Patricia DO [address] [place] [address] Primary Staff Physician Nephrology 03/26/21 Clinical Academic Allergist Relationship Specialty [place] [address] [place] [address] PCP - General Internal Medicine 01/30/19 Janey Patricia DO [address] [place] [address] Primary Staff Physician Nephrology 03/26/21 Ordered Prescriptions (unrec ognized section and content) [...] to minimize the risk of orthostatic hypotension 6744 (Given - Provider: [place] Resendiz, RN) 1329 (Given - Provider: Yesy Ruano RN)2112 (Given - Provider: Surekha Brown RN) 08 (Given - Provider: Denisse Thompson, RAY)2099 (Due) [...] Rodrigues RN) 132 (Given - Provider: Yesy Ruano, RAY)1340 (Not Given - Provider: Yesy Ruano RN - Reason: Other - Comment: just gave morning dose)2112 (Given - Provider: Surekha Brown RN) 08 (Given - Provider: Denisse Thompson RN)1400 (Due)2100 [...] WITH MEALS, 20 doses, First dose on Tue05/19/23 at 0800, Last dose on Tue05/28/23 at [...] Ashli Rodrigues, RAY)1355 (Stopped - Provider: Ashli Rodrigues, RAY) sodium chloride flush 0.9 % injection 5-40 [...] Resendiz RN) 1339 (Given - Provider: Yesy Ruano [...] (Rate/Dose Change - Provider: Surekha Brown RN) 421 (Stopped - Provider: Denisse Thompson RN - [...] or less into rate field of order. 1852 (New Bag - Provider: Surekha Brown RN) acetaminophen (TYLENOL) suppository 650 mg(Linked Group 2) 650 mg, Rectal, EVERY 6 HOURS PRN, Starting on Tue05/17/23 at 2003, Until Discontinued, Pain Mild (1-3), Fever, For temp greater than 100.4 F (38 C), Administer if oral route cannot be used. 2345 (See Alternative - Provider: Surekha Brown RN) [...] Resendiz RN) 0542 (Given - Provider: Alissa Resendiz, [...] override 1328 (Given - Provider: Yesy Ruano, RAY) sterile water injection (COMPLETED) 1 dose, [...] BE BASED ON THE PRIMARY CLINICAL RECORDS. [facility] [employer] [facility]. provides no warranty or guarantee of the accuracy or completeness of information in this document.
[2023-06-01 19:48] LABS: Hematocrit 24.9 % (36.0-48.0); Hemoglobin 8.2 g/dL (12.0-16.0); Mean Corpuscular HGB Conc 32.9 g/dL (29.9-35.2); Mean Corpuscular Hemoglobin 30.4 pg (26.7-34.0); Mean Corpuscular Volume 92.2 fL (81.0-99.0); Mean Platelet Volume 9.3 fL (9.5-13.5); Platelet Count 445 10^3/uL (150-450); White Blood Count 16.4 10^3/uL (4.0-11.0)
[2023-06-01] MEDS: 0.9 % SODIUM CHLORIDE 1,000 ML 999 ML IV (19:59)
[2023-06-01] MEDS: ONDANSETRON PF 4 MG/2 ML VIAL IV ×2 (20:00→21:46)
[2023-06-01 20:08] LABS: Segmented Neut Absolute Manual 14.59 10^3/uL (1.4-6.5)
[2023-06-01 20:09] LABS: Anisocytosis 3+; Band Neutrophils Absolute 0.2 10^3/uL (0.0-0.3); Hypersegmented Neutrophils 2+; Hypochromasia 3+; Lactate/Lactic Acid 1.2 mmol/L (0.4-2.0); Lymphocytes Absolute Manual 1.14 10^3/uL (1.20-3.80); Macrocytosis 1+; Microcytosis 3+; Monocytes Absolute Manual 0.49 10^3/uL (0.30-0.80); Toxic Granulation 3+
--- NOTE | 2023-06-01 20:13 | ED.NAVMDI1 ---
HPI - Nausea/Vomiting/Diarrhea General Chief complaint: Nausea/Vomiting/Diarrhea Stated complaint: Weakness Time Seen by Provider: 06/01/23 19:24 Source: patient Mode of arrival: Wheelchair Limitations: no limitations History of Present Illness HPI Narrative: Patient brought in by , who gives most of the HPI and ROS. 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 Unable to keep anything down. Feeling diffusely weak with some trouble getting out of bed. No chest pain or shortness of breath. No flank pain or abdominal pain. No urinary symptoms. She was evaluated twice last week in our ED and admitted twice for paroxysmal afib. She saw her [facility] vest busheler on 05/30/23 and they added prn diuretic to be given if her LEs swell, according to the . They apparently discussed out-patient scheduling of cardiac ablation with placement of a Watchman's - but no formal appointment has been made. She has a regular check up scheduled with her PCP tomorrow. No recent travel or known ill exposures. no recent antibiotic use. Related Data Home Medications ?Medication ?Instructions ?Recorded ?Confirmed doxazosin 2 mg tablet 2 mg PO BID 04/26/23 06/01/23 hydralazine 50 mg tablet 50 mg PO Q8H 04/26/23 06/01/23 rosuvastatin 20 mg tablet 20 mg PO .QHS 04/26/23 06/01/23 pantoprazole 40 mg tablet,delayed 40 mg PO DAILY 05/20/23 06/01/23 release naproxen 250 mg tablet 250 mg PO Q12H 05/26/23 06/01/23 furosemide 20 mg tablet 20 mg PO .once daily 06/01/23 06/01/23 Previous Rx's ?Medication ?Instructions ?Recorded amiodarone 200 mg tablet (Pacerone) 200 mg PO DAILY 30 days #30 tabs 05/22/23 apixaban 5 mg tablet (Eliquis) 2.5 mg (1/2 x 5 mg) PO BID 30 days 05/22/23 #30 tabs carvedilol 6.25 mg tablet 6.25 mg PO Q12H 30 days #60 tabs 05/22/23 hydrocodone 5 mg-acetaminophen 325 1 tab PO BID PRN Pain Scale 7-10 2 05/27/23 mg tablet days #4 tabs Allergies Allergy/AdvReac Type Severity Reaction Status Date / Time No Known Drug Allergies Allergy Verified 06/01/23 19:31 [facility] Medical History (Updated 06/01/23 @ 21:29 by Perez Damian) CAD (coronary artery disease), [place] coronary artery ?I25.10 - Atherosclerotic heart disease of [place] coronary artery without angina pectoris (ICD-10) GERD (gastroesophageal reflux disease) ?K21.9 - Gastro-esophageal reflux disease without esophagitis (ICD-10) Hypertension ?I10 - Essential (primary) hypertension (ICD-10) 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 - Unspecified atherosclerosis of [place] arteries of extremities, unspecified extremity (ICD-10) History of heart attack ?I25.2 - Old myocardial infarction (ICD-10) Abnormal colonoscopy ?R93.3 - Abnormal findings on diagnostic imaging of other parts of digestive tract (ICD-10) Colon polyp ?K63.5 - Polyp of colon (ICD-10) Surgical History H/O tubal ligation ?Z98.51 - Tubal ligation status (ICD-10) Hx of tonsillectomy ?Z90.89 - Acquired absence of other organs (ICD-10) Social History Within the past year, how often did you have a drink containing alcohol: never Score interpretation: A score less than 3 is consistent with normal alcohol consumption. Smoking status: Former smoker Non-prescribed substance use: denies use Previous occupational history: retired Highest level of school completed/degree received: 10th grade Exam Narrative Exam Narrative: Nurses notes and vital signs reviewed and patient is not hypoxic. afebrile General: Ill-appearing and diffusely weak. Skin: Warm, dry, no pallor noted. No rash. Head: Normocephalic, atraumatic. Neck: Supple, non-tender. Eye: Pupils are equal, round and EOMI. No scleral icterus. Ears, Nose, Mouth, and Throat: Oral mucosa is dry Cardiovascular: Tachycardia. Respiratory: No accessory muscle use or respiratory distress. Lungs are clear to auscultation, no wheezing, rales or rhonchi Musculoskeletal: no calf or popliteal tenderness, no lower extremity edema/swelling GI: Abdomen is soft, non-distended. Normal bowel sounds. No masses appreciated. No tenderness to palpation. No rebound, guarding, or rigidity noted. Neurological: A&O x4. No cranial nerve dysfunction observed. No truncal ataxia. Moves all extremities. Sensation intact. Psychiatric: Cooperative and interactive. Normal mood and affect. Constitutional Vital Signs, click to edit/add: Last Vital Signs Temp 98.2 F 06/01/23 21:37 Pulse 108 H 06/01/23 21:31 Resp 18 06/01/23 19:26 BP 129/62 06/01/23 21:31 Pulse Ox 94 L 06/01/23 21:31 O2 Del Method Room Air 06/01/23 19:26 Course Vital Signs Vital signs: Vital Signs Temperature 98.4 F 06/01/23 19:26 Pulse Rate 114 H 06/01/23 19:26 Respiratory Rate 18 06/01/23 19:26 Blood Pressure 155/88 H 06/01/23 19:26 Pulse Oximetry 94 L 06/01/23 19:26 Oxygen Delivery Method Room Air 06/01/23 19:26 Temperature 98.2 F 06/01/23 21:37 Pulse Rate 108 H 06/01/23 21:31 Respiratory Rate 18 06/01/23 19:26 Blood Pressure 129/62 06/01/23 21:31 Pulse Oximetry 94 L 06/01/23 21:31 Oxygen Delivery Method Room Air 06/01/23 19:26 MDM - Nausea/Vomiting/Diarrhea MDM Narrative Medical decision making narrative: Patient was placed on environmental monitoring technician and EKG obtained. Blood drawn and sent for evaluation. She was ordered to receive a liter of normal saline IV fluid and IV Zofran. EKG reveals rapid atrial fibrillation @115bpm. White blood cell count elevated at 16.4. Lactate normal at 1.2. Procalcitonin negative. Troponin negative. BNP decreased from over 7k on last visit to 5701 today. Normal electrolytes. BUN and Cr slightly elevated from baseline at 47, 2.1. AST, ALT and AP elevated above baseline at 78, 62, 170, respectively. She was sent for CT abd/pelvis due to elevated WBC and elevated LFTs. UA revealed acute UTI and she received IV Rocephin. HR between 100 and 115 - afib. CT did not reveal any worrisome findings. Patient still very weak and unable to stand - concern for ability to care for self at home. Call placed to tele hospitalist Michaela to discuss OBS stay on medsurg for continued NS IVF, recheck to verify decreased WBC and re-assessment of ability to perform ADLs at home. Patient admitted to Dr Puentes's service, [facility], obs. Medical Records Attestation: I reviewed the patient's medical records. Medical records narrative: Reviewed the patient's recent hospitalizations. 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 She had been on an amiodarone drip. She also had an echocardiogram last week, during her hospitalization. Lab Data Attestation: I reviewed the patient's lab results. Labs: Lab Results 06/01/23 06/01/23 Range/Units 19:39 20:55 WBC 16.4 H (4.0-11.0) 10^3/uL RBC 2.70 L (4.20-5.40) 10^6/uL Hgb 8.2 L (12.0-16.0) g/dL Hct 24.9 L (36.0-48.0) % MCV 92.2 (81.0-99.0) fL MCH 30.4 (26.7-34.0) pg MCHC 32.9 (29.9-35.2) g/dL RDW 14.0 (11.0-15.0) % Plt Count 445 (150-450) 10^3/uL MPV 9.3 L (9.5-13.5) fL Seg Neuts % (Manual) 89.0 Band Neutrophils % 1.0 (0-5) % Lymphocytes % (Manual) 7.0 L (20.5-60.0) % Monocytes % (Manual) 3.0 (1.7-12.0) % Eosinophils % (Manual) 0.0 L (0.9-7.0) % Basophils % (Manual) 0.0 L (0.2-2.0) % Neutrophils # (Manual) 14.59 H (1.4-6.5) 10^3/uL Band Neutrophils # 0.2 (0.0-0.3) 10^3/uL Lymphocytes # (Manual) 1.14 L (1.20-3.80) 10^3/uL Monocytes # (Manual) 0.49 (0.30-0.80) 10^3/uL Eosinophils # (Manual) 0.00 (0.00-0.70) 10^3/uL Basophils # (Manual) 0.00 (0.00-0.10) 10^3/uL Hypersegmented Neuts 2+ Toxic Granulation 3+ Hypochromasia 3+ Anisocytosis 3+ Microcytosis 3+ Macrocytosis 1+ Sodium 139 (136-145) mmol/L Potassium 3.6 (3.5-5.1) mmol/L Chloride 103 (98-107) mmol/L Carbon Dioxide 23.8 (21.0-32.0) mmol/L Anion Gap 15.8 BUN 47.0 H (7.0-18.0) mg/dL Creatinine 2.12 H (0.55-1.02) mg/dL Est GFR ( Amer) 28 L (>=60) Est GFR (Non-Af Amer) 23 L (>=60) BUN/Creatinine Ratio 22.2 Glucose 111 H (74-106) mg/dL Lactate 1.2 (0.4-2.0) mmol/L Calcium 8.5 (8.5-10.1) mg/dL Total Bilirubin 0.7 (0.2-1.0) mg/dL AST 78 H (15-37) U/L ALT 62 H (14-59) U/L Alkaline Phosphatase 170 H (46-116) U/L Troponin I High Sens 11.8 (4.0-51.3) pg/mL NT-Pro-B Natriuret Pep 5701.0 H* (<=900.0) pg/mL Total Protein 6.5 (6.4-8.2) g/dL Albumin 2.0 L (3.4-5.0) g/dL Globulin 4.5 g/dL Albumin/Globulin Ratio 0.4 Procalcitonin 0.44 (0.00-0.50) ng/mL Urine Color Lt. yellow (YELLOW) Urine Clarity Clear (CLEAR) Urine pH 5.5 (5.0-9.0) Ur Specific [place] 1.020 (1.005-1.025) Urine Protein 30 A (NEG/TRACE) mg/dL Urine Glucose (UA) Negative (NEGATIVE) mg/dL Urine Ketones Negative (NEGATIVE) mg/dL Urine Occult Blood Negative (NEGATIVE) Urine Nitrite Negative (NEGATIVE) Urine Bilirubin Negative (NEGATIVE) Urine Urobilinogen 0.2 (0.2-1.0) EU/dL Ur Leukocyte Esterase Negative (NEGATIVE) Urine RBC 0-2 (0-2) #/HPF Urine WBC 5-10 A (NONE SEEN) #/HPF Ur Squamous Epith Cells Many A (NONE/RARE) #/LPF Urine Crystals Seen A (None Seen) #/HPF Amorphous Sediment Many Urine Bacteria Trace A (NONE SEEN) #/HPF Urine Casts Seen A (NONE SEEN) #/LPF Coarse Granular Casts Few Urine Mucus None seen (NONE SEEN) Ur Culture Indicated? Yes Imaging Data CT scan - abdomen: Attestation: I have reviewed the pertinent imaging results. Radiologist's impression: ITS Impressions Abdomen/Pelvis CT 06/01/23 20:25 IMPRESSION: 1. No definitive acute inflammatory process or obstructive uropathy is present in the abdomen or pelvis. 2. Bilateral pleural effusions in the lower chest, left greater than right. There is also a moderate pericardial effusion. Airspace disease in the lung bases is present adjacent to the effusions likely representing atelectasis. 3. Complex right ovarian cyst measuring 3.2 cm. This could be further characterized with pelvic sonography. Electronically authenticated by: FREDY GRANDE Date: 06/01/2023 21:15 ECG Data Attestation: I personally reviewed and interpreted this ECG as follows: Interpretation: EKG interpretation: Emergency Department physician interpretation. Atrial fibrillation at 115bpm. Normal axis, Nonspecific T wave changes but no ST segment elevation. Discharge Plan Discharge Chief Complaint: Nausea/Vomiting/Diarrhea Clinical Impression: Weakness generalized, Leukocytosis, Acute UTI Patient Disposition: Admitted as Observation Time of Disposition Decision: 21:28
[2023-06-01 20:15] LABS: Alanine Aminotransferase 62 U/L (14-59); Albumin Globulin Ratio 0.4; Alkaline Phosphatase 170 U/L (46-116); Anion Gap 15.8; Aspartate Amino Transferase 78 U/L (15-37); BUN Creatinine Ratio 22.2; Bilirubin Total 0.7 mg/dL (0.2-1.0); Calcium 8.5 mg/dL (8.5-10.1); Carbon Dioxide 23.8 mmol/L (21.0-32.0); Chloride 103 mmol/L (98-107); Estimated GFR (African America 28 (>=60); Estimated GFR (Non-African Ame 23 (>=60); Globulin 4.5 g/dL; Glucose 111 mg/dL (74-106); Potassium 3.6 mmol/L (3.5-5.1); Sodium 139 mmol/L (136-145); Total Protein 6.5 g/dL (6.4-8.2); Troponin I High Sensitivity 11.8 pg/mL (4.0-51.3)
[2023-06-01 20:18] LABS: PROCALCITONIN 0.44 ng/mL (0.00-0.50)
--- NOTE | 2023-06-01 20:25 | CT_ITS ---
The [address] [address] Patient Name: NEELAM VIRAMONTES MRN: [id number] date: 1950 Sex: F Assigned Patient Location: ER Current Patient Location: ER Accession/Order Number: [id number] Exam Date: 06/01/2023 20:38 Report Date: 06/01/2023 21:15 At the request of: MARTI RIVERS Procedure: CT abdomen pelvis wo con EXAMINATION:CT abdomen pelvis wo con INDICATION:vomiting, elevated WBC and elevated LFTs COMPARISON:07/31/2012 TECHNIQUE:Multiple thin section transaxial slices were acquired through the abdomen and pelvis without intravenous contrast. Coronal and sagittal reconstructed images were reviewed. Oral contrastWas not administered. FINDINGS: LOWER CHEST: There are small right and [id number] left pleural effusions. There is a moderate pericardial effusion measuring up to 1.3 cm. There is atelectasis in each lower lobe adjacent to the pleural effusions. LIVER: The liver is unremarkable. GALLBLADDER AND BILIARY SYSTEM: No obvious ductal dilation. No calcified stones. SPLEEN: There are a few calcified granulomas in the spleen. PANCREAS: The pancreas is unremarkable. ADRENAL GLANDS: The adrenal glands are unremarkable. KIDNEYS AND URETERS: There is no hydronephrosis of the kidneys.There is cortical based scarring in the left kidney. There is a cyst in the posterior lateral right kidney measuring 4.0 cm. VASCULATURE: There is atherosclerotic plaque in the abdominal aorta without aneurysm. PERITONEUM/RETROPERITONEUM: Peritoneum/retroperitoneum is unremarkable. LYMPH NODES: No suspicious lymphadenopathy. GASTROINTESTINAL TRACT: The bowel is normal in caliber.There is chronic colonic diverticulosis of the colon without acute inflammation.The appendix is visualized and is not inflamed. BLADDER: The urinary bladder is unremarkable. REPRODUCTIVE SYSTEM: There is a complex right ovarian cyst measuring 3.2 cm. BODY WALL: There is a tiny fat-containing ventral hernia in the upper abdomen. BONES: Post kyphoplasty changes are present in the T10-T12 vertebral bodies. CT/CT abdomen pelvis wo con IMPRESSION: 1. No definitive acute inflammatory process or obstructive uropathy is present in the abdomen or pelvis. 2. Bilateral pleural effusions in the lower chest, left greater than right. There is also a moderate pericardial effusion. Airspace disease in the lung bases is present adjacent to the effusions likely representing atelectasis. 3. Complex right ovarian cyst measuring 3.2 cm. This could be further characterized with pelvic sonography. Electronically authenticated by: FREDY GRANDE Date: 06/01/2023 21:15
[2023-06-01 21:06] LABS: Bilirubin Urine NEGATIVE (NEGATIVE); Blood Urine NEGATIVE (NEGATIVE); Clarity Urine CLEAR (CLEAR); Color Urine LT. YELLOW (YELLOW); Glucose Urine UA NEGATIVE (NEGATIVE); Ketones Urine NEGATIVE (NEGATIVE); Leukocyte Esterase Urine NEGATIVE (NEGATIVE); Nitrite Urine NEGATIVE (NEGATIVE); Protein Urine 30 mg/dL (NEG/TRACE); Urine Microscopic Indicated YES; Urobilinogen Urine 0.2 EU/dL (0.2-1.0); pH Urine 5.5 (5.0-9.0)
[2023-06-01 21:17] LABS: Amorphous Sediment Urine MANY; Bacteria Urine TRACE #/HPF (NONE SEEN); Cast Seen? SEEN #/LPF (NONE SEEN); Coarse Granular Casts Urine FEW; Crystals Seen? Seen #/HPF (None Seen); Mucus Urine NONE SEEN (NONE SEEN); RBC Urine 0-2 #/HPF (0-2); Squamous Epithelial Cell Urine MANY #/LPF (NONE/RARE); Urine Culture Indicated YES
[2023-06-01] MEDS: PROMETHAZINE HCL 25 MG in 0.9 % SODIUM CHLORIDE 50 ML 204 MG IV (21:48)
[2023-06-01] MEDS: CEFTRIAXONE 1,000 MG in 0.9 % SODIUM CHLORIDE 50 ML 100 MG IV (22:11)
--- OUTSIDE RECORDS SUMMARY | 2023-06-01 22:42 | XMS_ITS | CCD ---
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 Comment on above: Result Comment: High Sensitivity Troponin values cannot be compared with other Troponin methodologies. Performed By: #### T BK #### [facility] [address] [place] [address] Desktop Support Engineer: Daniella Lott MD Troponin, High Sens 23 ng/L High 0-14 [facility] Comment on above: Result Comment: High Sensitivity Troponin values cannot be compared with other Troponin methodologies. Performed By: #### T BK, BMP, CDP #### [facility] [address] [place] [address] Desktop Support Engineer: Daniella Lott MD XR CHEST PORTABLEon 05-20-19 [...] Erik Hope MD 05/20/23 Final result Normal [facility] Brain Natri. Peptideon 05-18 Natriuretic peptide B (Bld) [Mass/Vol] 3604 pg/mL High <300 [facility] Comment on above: Result Comment: An age-independent cutoff point of 300 pg/ml has a 98% negative predictive value excluding acute heart failure. Performed By: #### T BK #### [facility] [address] [place] [address] Desktop Support Engineer: Daniella Lott MD Brain Natriuretic Peptideon 05-19-2023 Natriuretic peptide B (Bld) [Mass/Vol] 3604 pg/mL High NINF - 300 pg/mL [facility] Comment on above: An age-independent cutoff point of 300 pg/ml has a 98% negative predictive value excluding acute heart failure. CBC auto differentialon 04-29 Basophils (Bld) [#/Vol] [facility] Basophils/100 WBC (Bld) 0 % 0 - 2 % [facility] Eosinophils (Bld) [#/Vol] 0.27 10*3/uL [facility] Eosinophils/100 WBC (Bld) 4 % 1 - 4 % [facility] Erythrocyte distribution width (RBC) [Ratio] 13.5 % 11.8 - 14.4 % [facility] Hematocrit (Bld) [Volume fraction] 29.4 % Low 36.3 - 47.1 % [facility] Hemoglobin (Bld) [Mass/Vol] 9.5 g/dL Low 11.9 - 15.1 g/dL [facility] Immature granulocytes (Bld) [#/Vol] 0.03 10*3/uL [facility] Immature granulocytes/100 WBC (Bld) 0 % 0 [facility] Interpretation and review of laboratory results Abnormal [facility] Lymphocytes/100 WBC (Bld) 22 % Low 24 - 43 % [facility] Lymphocytes/100 WBC (Bld) 1.54 % [facility] MCH (RBC) [Entitic mass] 31.0 pg 25.2 - 33.5 pg [facility] MCHC (RBC) [Mass/Vol] 32.3 g/dL 28.4 - 34.8 g/dL [facility] MCV (RBC) [Entitic vol] 96.1 fL 82.6 - 102.9 fL [facility] Monocytes/100 WBC (Bld) 10 % 3 - 12 % [facility] Monocytes/100 WBC (Bld) 0.74 % [facility] Neutrophils/100 WBC (Bld) 64 % 36 - 65 % [facility] Nucleated RBC/100 WBC (Bld) [Ratio] 0.0 % 0.0 per 100 WBC [facility] Platelet mean volume (Bld) [Entitic vol] 10.1 fL 8.1 - 13.5 fL [facility] Platelets (Bld) [#/Vol] 125 10*3/uL Low [facility] RBC (Bld) [#/Vol] 3.06 10*6/uL Low 3.95 - 5.1 1 m/uL [facility] Segmented neutrophils/100 WBC (Bld) 4.57 % [facility] WBC other (Bld) [#/Vol] 7.2 [facility] CBC with Diffon 05-19-2023 Abs. Basophil <0.03 Normal 0.00-0.20 [facility] Comment on above: Performed By: #### C MPX, CDP, BNP #### [facility] [address] [place] [address] [place] [phone] Desktop Support Engineer: Daniella Lott MD #### GLYHGB #### [place] [address] [place], [place] [phone] Desktop Support Engineer: Jere Mas MD Abs.Imm.Granulocyt e 0.03 k/uL Normal 0.00-0.30 [facility] Comment on above: Performed By: #### C MPX, CDP, BNP #### [address] [place] [phone] Desktop Support Engineer: Daniella Lott MD #### GLYHGB #### [address] [place], [place] 1896[address] Desktop Support Engineer: Jere Mas MD Abs.Neutrophil (Seg) 4.57 k/uL Normal 1.50-8.10 [facility] Comment on above: Performed By: #### C MPX, CDP, BNP #### [address] [place] [address] Desktop Support Engineer: Daniella Lott MD #### GLYHGB #### [address] [place] [address] Desktop Support Engineer: Jere Mas MD Basophils/100 WBC (Bld) 0 % Normal 0-2 [facility] Comment on above: Performed By: #### C MPX, CDP, BNP #### [facility] [address] [place] [address] Dr. [place] [phone] Desktop Support Engineer: Daniella Lott MD #### GLYHGB #### [address] [address] Desktop Support Engineer: Jere Mas MD Eosinophils (Bld) [#/Vol] 0.27 10*3/uL Normal 0.00-0.44 [facility] Comment on above: Performed By: #### C MPX, CDP, BNP #### [address] [place] [phone] ( Desktop Support Engineer: Daniella Lott MD #### GLYHGB #### [place] [address] Desktop Support Engineer: Jere Mas MD Eosinophils/100 WBC (Bld) 4 % Normal 1-4 [facility] Comment on above: Performed By: #### C MPX, CDP, BNP #### [address] [place] [phone] Desktop Support Engineer: Daniella Lott MD #### GLYHGB #### [address] [phone] Desktop Support Engineer: Jere Mas MD Erythrocyte distribution width (RBC) [Ratio] 13.5 % Normal 11.8-14.4 [facility] Comment on above: Performed By: #### C MPX, CDP, BNP #### [address] [place] [phone] Desktop Support Engineer: Daniella Lott MD #### GLYHGB #### [address] [phone] Desktop Support Engineer: Jere Mas MD Hematocrit (Bld) [Volume fraction] 29.4 % Low 36.3-47.1 [facility] Comment on above: Performed By: #### C MPX, CDP, BNP #### [address] [place] [phone] Desktop Support Engineer: Daniella Lott MD #### GLYHGB #### [place] [phone] Desktop Support Engineer: Jere Mas MD Hemoglobin (Bld) [Mass/Vol] 9.5 g/dL Low 11.9-15.1 [facility] Comment on above: Performed By: #### C MPX, CDP, BNP #### [address] [place] [address] Desktop Support Engineer: Daniella Lott MD #### GLYHGB #### [place] [address] Desktop Support Engineer: Jere Mas MD Immature granulocytes/100 WBC (Bld) 0 % Normal 0 [facility] Comment on above: Performed By: #### C MPX, CDP, BNP #### [address] [place] [phone] Desktop Support Engineer: Daniella Lott MD #### GLYHGB #### [place] [address] Desktop Support Engineer: Jere Mas MD Lymphocytes (Bld) [#/Vol] 1.54 10*3/uL Normal 1.10-3.70 [facility] Comment on above: Performed By: #### C MPX, CDP, BNP #### [address] [place] [phone] Desktop Support Engineer: Daniella Lott MD #### GLYHGB #### [address] [place], [place] [phone] Desktop Support Engineer: Jere Mas MD Lymphocytes/100 WBC (Bld) 22 % Low 24-43 [facility] Comment on above: Performed By: #### C MPX, CDP, BNP #### [address] [place] [phone] Desktop Support Engineer: Daniella Lott MD #### GLYHGB #### [address] [phone] Desktop Support Engineer: Jere Mas MD MCH (RBC) [Entitic mass] 31.0 pg Normal 25.2-33.5 [facility] Comment on above: Performed By: #### C MPX, CDP, BNP #### [address] [place] [phone] Desktop Support Engineer: Daniella Lott MD #### GLYHGB #### [place] [address] Desktop Support Engineer: Jere Mas MD MCHC (RBC) [Mass/Vol] 32.3 g/dL Normal 28.4-34.8 [facility] Comment on above: Performed By: #### C MPX, CDP, BNP #### [address] [place] [phone] Desktop Support Engineer: Daniella Lott MD #### GLYHGB #### [address] [phone] Desktop Support Engineer: Jere Mas MD MCV (RBC) [Entitic vol] 96.1 fL Normal 82.6-102.9 [facility] Comment on above: Performed By: #### C MPX, CDP, BNP #### [address] [place] [address] Desktop Support Engineer: Daniella Lott MD #### GLYHGB #### [address] [address] Desktop Support Engineer: Jere Mas MD Monocytes (Bld) [#/Vol] 0.74 10*3/uL Normal 0.10-1.20 [facility] Comment on above: Performed By: #### C MPX, CDP, BNP #### [facility] [address] [place] [address] Desktop Support Engineer: Daniella Lott MD #### GLYHGB #### [address] [phone] Desktop Support Engineer: Jere Mas MD Monocytes/100 WBC (Bld) 10 % Normal 3-12 [facility] Comment on above: Performed By: #### C MPX, CDP, BNP #### [address] [place] [address] Desktop Support Engineer: Daniella Lott MD #### GLYHGB #### [address] [phone] Desktop Support Engineer: Jere Mas MD Neutrophil (Seg) 64 % Normal 36-65 [facility] Comment on above: Performed By: #### C MPX, CDP, BNP #### [address] [place] [phone] Desktop Support Engineer: Daniella Lott MD #### GLYHGB #### [address] [phone] Desktop Support Engineer: Jere Mas MD NRBC Automated 0.0 per 100 WBC Normal 0.0 [facility] Comment on above: Performed By: #### C MPX, CDP, BNP #### [address] [place], [place] [phone] Desktop Support Engineer: Daniella Lott MD #### GLYHGB #### [address] [phone] Desktop Support Engineer: Jere Mas MD Platelet mean volume (Bld) [Entitic vol] 10.1 fL Normal 8.1-13.5 [facility] Comment on above: Performed By: #### C MPX, CDP, BNP #### [facility] [address] [place] [address] Dr. [place], [place] [phone] Desktop Support Engineer: Daniella Lott MD #### GLYHGB #### [address] [place], [place] [phone] Desktop Support Engineer: Jere Mas MD Platelets (Bld) [#/Vol] 125 10*3/uL Low 138-453 [facility] Comment on above: Performed By: #### C MPX, CDP, BNP #### [address] [place] [phone] Desktop Support Engineer: Daniella Lott MD #### GLYHGB #### [address] [phone] Desktop Support Engineer: Jere Mas MD RBC (Bld) [#/Vol] 3.06 10*6/uL Low 3.95-5.11 [facility] Comment on above: Performed By: #### C MPX, CDP, BNP #### [address] [place] [phone] Desktop Support Engineer: Daniella Lott MD #### GLYHGB #### [address] [place], [place] [phone] Desktop Support Engineer: Jere Mas MD WBC (Bld) [#/Vol] 7.2 10*3/uL Normal 3.5-11.3 [facility] Comment on above: Performed By: #### C MPX, CDP, BNP #### [facility] [address] [place] [address] [place] [address] Desktop Support Engineer: Daniella Lott MD #### GLYHGB #### [facility] [address] [place], [place] [phone] Desktop Support Engineer: Jere Mas MD Comp Metabolic Pr/rfx MGon 0 - Albumin [Mass/Vol] 2.9 g/dL Low 3.5-5.2 [facility] Comment on above: Performed By: #### T ROPI #### [facility] [address] [place], [place] [phone] Desktop Support Engineer: Daniella Lott MD Albumin/Glob Ratio 1.2 Normal 1.0-2.5 [facility] Comment on above: Performed By: #### T ROPI #### [facility] [address] [place], [place] [phone] Desktop Support Engineer: Daniella Lott MD Alkaline Phos 59 U/L Normal 35-104 [facility] Comment on above: Performed By: #### T ROPI #### [facility] [address] [place], [place] [phone] Desktop Support Engineer: Daneilla Lott MD ALT [Catalytic activity/Vol] 5 U/L Normal 5-33 [facility] Comment on above: Performed By: #### T ROPI #### [facility] [address] [place] [address] Dr. [place], [place] [phone] Desktop Support Engineer: Daniella Lott MD Anion gap [Moles/Vol] 8 mmol/L Low 9-17 [facility] Comment on above: Performed By: #### T ROPI #### [facility] [address] [place], [place] [phone] Desktop Support Engineer: Daniella Lott MD AST [Catalytic activity/Vol] 12 U/L Normal <32 [facility] Comment on above: Performed By: #### T ROPI #### [facility] [address] [place], [place] [phone] Desktop Support Engineer: Daniella Lott MD Bilirubin [Mass/Vol] 0.5 mg/dL Normal 0.3-1.2 [facility] Comment on above: Performed By: #### T ROPI #### [facility] [address] [place], [place] [phone] Desktop Support Engineer: Daniella Lott MD BUN/CRE Ratio 19 Normal 9-20 [facility] Comment on above: Performed By: #### T ROPI #### [facility] [address] [place], [place] [phone] Desktop Support Engineer: Daniella Lott MD Calcium [Mass/Vol] 7.8 mg/dL Low 8.6-10.4 [facility] Comment on above: Performed By: #### T ROPI #### [facility] [address] [place], [place] [phone] Desktop Support Engineer: Daniella Lott MD Chloride [Moles/Vol] 101 mmol/L Normal 98-107 [facility] Comment on above: Performed By: #### T ROPI #### [facility] [address] [place], [place] [phone] Desktop Support Engineer: Daniella Lott MD CO2 [Moles/Vol] 23 mmol/L Normal 20-31 [facility] Comment on above: Performed By: #### T ROPI #### [facility] [address] [place], [place] [phone] Desktop Support Engineer: Daniella Lott MD Creatinine [Mass/Vol] 1.4 mg/dL High 0.5-0.9 [facility] Comment on above: Performed By: #### T ROPI #### [facility] [address] [place], [place] [phone] Desktop Support Engineer: Daniella Lott MD GFR/1.73 sq M.predicted among non-blacks MDRD (S/P/Bld) [Vol rate/Area] 40 mL/min/{1.73_m2} Low >60 [facility] Comment on above: Result Comment: These [...] secretion. Performed By: #### T ROPI #### [facility] [address] [place] [address] Desktop Support Engineer: Daniella Lott MD Glucose [Mass/Vol] 97 mg/dL Normal 70-99 [facility] Comment on above: Performed By: #### T ROPI #### [facility] [address] [place] [address] Desktop Support Engineer: Daniella Lott MD Potassium [Moles/Vol] 3.9 mmol/L Normal 3.7-5.3 [facility] Comment on above: Performed By: #### T ROPI #### [facility] [address] [place] [address] Dr. [place], [place] [phone] Desktop Support Engineer: Daniella Lott MD Protein [Mass/Vol] 5.4 g/dL Low 6.4-8.3 [facility] Comment on above: Performed By: #### T ROPI #### [facility] [address] [place] [address] Dr. [place], [place] [phone] Desktop Support Engineer: Daniella Lott MD Sodium [Moles/Vol] 132 mmol/L Low 135-144 [facility] Comment on above: Performed By: #### T ROPI #### [facility] [address] [place] [address] Desktop Support Engineer: Daniella Lott MD Urea nitrogen [Mass/Vol] 27 mg/dL High 8-23 [facility] Comment on above: Performed By: #### T ROPI #### [facility] [address] [place] [address] [place] [address] Desktop Support Engineer: Daniella Lott MD [facility] Metabolic Pane l w/ Reflex to on 05-19-2023 Albumin [Mass/Vol] 2.9 g/dL Low 3.5 - 5.2 g/dL [facility] Albumin/Globulin [Mass ratio] 1.2 {ratio} 1.0 - 2.5 [facility] ALP [Catalytic activity/Vol] 59 U/L 35 - 104 U/L [facility] ALT [Catalytic activity/Vol] 5 U/L 5 - 33 U/L [facility] Anion gap [Moles/Vol] 8 mmol/L Low 9 - 17 mmol/L [facility] AST [Catalytic activity/Vol] 12 U/L NINF - 32 U/L [facility] Bilirubin [Mass/Vol] 0.5 mg/dL 0.3 - 1.2 mg/dL [facility] Calcium [Mass/Vol] 7.8 mg/dL Low 8.6 - 10. 4 mg/dL [facility] Chloride [Moles/Vol] 101 mmol/L 98 - 107 mmol/L [facility] CO2 [Moles/Vol] 23 mmol/L 20 - 31 mmol/L [facility] Creatinine [Mass/Vol] 1.4 mg/dL High 0.5 - 0.9 mg/dL [facility] GFR/1.73 sq M.predicted MDRD (S/P/Bld) [Vol rate/Area] 40 mL/min/{1.73_m2} Low - PINF [facility] Comment on above: These results are not [...] [Mass/Vol] 97 mg/dL 70 - 99 mg/dL [facility] Potassium [Moles/Vol] 3.9 mmol/L 3.7 - 5.3 mmol/L [facility] Protein [Mass/Vol] 5.4 g/dL Low 6.4 - 8.3 g/dL [facility] Sodium [Moles/Vol] 132 mmol/L Low 135 - 144 mmol/L [facility] Urea nitrogen [Mass/Vol] 27 mg/dL High 8 - 23 mg/dL [facility] Urea nitrogen/Creatinin e [Mass ratio] 19 mg/mg 9 - 20 [facility] Cult,Urineon 05-19-2023 Cult,Urine Specimen Description .CLEAN CATCH URINE Culture NO GROWTH Report Status FINAL 05/19/2023 Normal [facility] Comment on above: Performed By: #### U RC #### [facility] [address] [place], [place] [phone] Desktop Support Engineer: Jere Mas MD [facility] [address] [place] [address] Desktop Support Engineer: Daniella Lott MD EKG 12 Leadon 05-19-2023 Atrial Rate 104 BPM [facility] Q-T Interval 310 ms [facility] QRS Duration 80 ms [facility] QTc Calculation (Bazett) 466 ms [facility] R [place] 14 degrees [facility] [place] [employer] [place] -3 degrees [facility] [employer] [facility] Ventricular Rate 136 BPM [facility] Atrial fibrillation with rapid ventricular response Abnormal ECG When compared with ECG of 17-MAY-2023 16:19, Atrial fibrillation has replaced Sinus rhythm Vent. rate has increased BY 61 BPM Nonspecific T wave abnormality, worse in Inferior leads Confirmed by LAVERNE SILVESTRE ([id number]) on 05/19/2023 12:43:09 AM [facility] Laverne Silvestre MD - 05/19/2023 Atrial fibrillation with rapid ventricular response Abnormal ECG When compared with ECG of 17-MAY-2023 16:19, Atrial fibrillation has replaced Sinus rhythm Vent. rate has increased BY 61 BPM Nonspecific T wave abnormality, worse in Inferior leads Confirmed by LAVERNE SILVESTRE ([id number]) on 05/19/2023 12:43:09 AM [facility] [employer] [facility] Atrial Rate 73 BPM [facility] [place] 61 degrees [facility] P-R Interval 144 ms [facility] Q-T Interval 372 ms [facility] QRS Duration 86 ms [facility] QTc Calculation (Bazett) 409 ms [facility] R [place] 42 degrees [facility] T [place] 35 degrees [facility] Ventricular Rate 73 BPM [facility] Normal sinus rhythm Normal ECG When compared with ECG of 18-MAY-2023 15:47, (unconfirmed) Sinus rhythm has replaced Atrial fibrillation Vent. rate has decreased BY 63 BPM Nonspecific T wave abnormality, improved in Inferior leads Confirmed by LAVERNE SILVESTRE ([id number]) on 05/19/2023 12:38:02 AM [facility] Laverne Silvestre MD - 05/19/2023 Normal sinus rhythm Normal ECG When compared with ECG of 18-MAY-2023 15:47, (unconfirmed) Sinus rhythm has replaced Atrial fibrillation Vent. rate has decreased BY 63 BPM Nonspecific T wave abnormality, improved in Inferior leads Confirmed by LAVERNE SILVESTRE ([id number]) on 05/19/2023 12:38:02 AM [facility] EKG Rhythm Stripon [facility] Hemoglobin A1Con 05-19-2023 Glucose [Mass/Vol] 88 mg/dL Normal [facility] Comment on above: Result Comment: The ADA and AACC recommend providing the estimated average glucose result to permit better patient understanding of their HBA1c result. Performed By: #### T ROPI #### [facility] [address] [place] [address] Desktop Support Engineer: Daniella Lott MD HbA1c (Bld) [Mass fraction] 4.7 % Normal 4.0-6.0 [facility] Comment on above: Performed By: #### T ROPI #### [facility] [address] [place] [address] Desktop Support Engineer: Daniella Lott MD Lipid Profileon 05-19-2023 Cholesterol [Mass/Vol] 88 mg/dL Normal 0-199 [facility] Comment on above: Result Comment: Cholesterol Guidelines: <200 Desirable 200-240 Borderline >240 Undesirable Performed By: #### JP SMITH, CDP #### [facility] [address] [place], [place] [phone] Desktop Support Engineer: Daniella Lott MD Cholesterol in HDL [Mass/Vol] 37 mg/dL Low >40 [facility] Comment on above: Result Comment: HDL Guidelines: <40 Undesirable 40-59 Borderline >59 Desirable Performed By: #### JP SMITH, CDP #### [facility] [address] [place], [place] [phone] Desktop Support Engineer: Daniella Lott MD Cholesterol in LDL [Mass/Vol] 41 mg/dL Normal 0-100 [facility] Comment on above: Result Comment: LDL Guidelines: <100 Desirable 100-129 Near to/above Desirable 130-159 Borderline >159 Undesirable Direct (measured) LDL and calculated LDL are not interchangeable tests. Performed By: #### JP SMITH, CDP #### [facility] [address] [place], [place] [phone] Desktop Support Engineer: Daniella Lott MD Cholesterol in VLDL [Mass/Vol] 10 mg/dL Normal [facility] Comment on above: Performed By: #### JP SMITH, CDP #### [facility] [address] [place], [id number] Desktop Support Engineer: Daniella Lott MD Cholesterol.total/ Cholesterol in HDL [Mass ratio] 2.0 {ratio} Normal [facility] Comment on above: Performed By: #### JP SMITH, CDP #### [facility] [address] [place] [address] Desktop Support Engineer: Daniella Lott MD Triglyceride [Mass/Vol] 51 mg/dL Normal <150 [facility] Comment on above: Result Comment: Triglyceride Guidelines: <150 Desirable 150-199 Borderline 200-499 High >499 Very high Based on AHA Guidelines for fasting triglyceride, November 2011. Performed By: #### T BK, BMP, CDP #### [facility] [address] [place] [address] Desktop Support Engineer: Daniella Lott MD No Panel Informationon 05-18 Interpretation and review of laboratory results Abnormal [facility] CBC auto differentialon 04-29 Basophils (Bld) [#/Vol] 0.03 10*3/uL [facility] Basophils/100 WBC (Bld) 1 % 0 - 2 % [facility] Eosinophils (Bld) [#/Vol] 0.06 10*3/uL [facility] Eosinophils/100 WBC (Bld) 1 % 1 - 4 % [facility] Erythrocyte distribution width (RBC) [Ratio] 13.5 % 11.8 - 14.4 % [facility] Hematocrit (Bld) [Volume fraction] 31.5 % Low 36.3 - 47.1 % [facility] Hemoglobin (Bld) [Mass/Vol] 10.1 g/dL Low 11.9 - 15.1 g/dL [facility] Immature granulocytes (Bld) [#/Vol] [facility] Immature granulocytes/100 WBC (Bld) 0 % 0 [facility] Interpretation and review of laboratory results Abnormal [facility] Lymphocytes/100 WBC (Bld) 27 % 24 - 43 % [facility] Lymphocytes/100 WBC (Bld) 1.53 % [facility] MCH (RBC) [Entitic mass] 31.6 pg 25.2 - 33.5 pg [facility] MCHC (RBC) [Mass/Vol] 32.1 g/dL 28.4 - 34.8 g/dL [facility] MCV (RBC) [Entitic vol] 98.4 fL 82.6 - 102.9 fL [facility] [place] Monocytes/100 WBC (Bld) 11 % 3 - 12 % [facility] Monocytes/100 WBC (Bld) 0.65 % [facility] Neutrophils/100 WBC (Bld) 60 % 36 - 65 % [facility] Nucleated RBC/100 WBC (Bld) [Ratio] 0.0 % 0.0 per 100 WBC [facility] Platelet mean volume (Bld) [Entitic vol] 10.1 fL 8.1 - 13.5 fL [facility] Platelets (Bld) [#/Vol] 138 10*3/uL [facility] RBC (Bld) [#/Vol] 3.20 10*6/uL Low 3.95 - 5.1 1 m/uL [facility] Segmented neutrophils/100 WBC (Bld) 3.48 % [facility] WBC other (Bld) [#/Vol] 5.8 [facility] CBC with Diffon 05-18-2023 Abs. Basophil 0.03 k/uL Normal 0.00-0.20 [facility] Comment on above: Performed By: #### T ROPI #### [facility] [address] [place] [address] Dr. [place] [phone] Desktop Support Engineer: Daniella Lott MD Abs.Imm.Granulocyt e <0.03 Normal 0.00-0.30 [facility] Comment on above: Performed By: #### T ROPI #### [address] [place] [address] Desktop Support Engineer: Daniella Lott MD Abs.Neutrophil (Seg) 3.48 k/uL Normal 1.50-8.10 [facility] Comment on above: Performed By: #### T ROPI #### [address] [place], [id number] Desktop Support Engineer: Daniella Lott MD Basophils/100 WBC (Bld) 1 % Normal 0-2 [facility] Comment on above: Performed By: #### T ROPI #### [facility] [address] [place] [address] Dr. [place] [phone] Desktop Support Engineer: Daniella Lott MD Eosinophils (Bld) [#/Vol] 0.06 10*3/uL Normal 0.00-0.44 [facility] Comment on above: Performed By: #### T ROPI #### [facility] [address] [place], [id number] Desktop Support Engineer: Daniella Lott MD Eosinophils/100 WBC (Bld) 1 % Normal 1-4 [facility] Comment on above: Performed By: #### T ROPI #### [address] [place], [id number] Desktop Support Engineer: Daniella Lott MD Erythrocyte distribution width (RBC) [Ratio] 13.5 % Normal 11.8-14.4 [facility] Comment on above: Performed By: #### T ROPI #### [address] [place], [id number] Desktop Support Engineer: Daniella Lott MD Hematocrit (Bld) [Volume fraction] 31.5 % Low 36.3-47.1 [facility] Comment on above: Performed By: #### T ROPI #### [address] [place], [id number] Desktop Support Engineer: Daniella Lott MD Hemoglobin (Bld) [Mass/Vol] 10.1 g/dL Low 11.9-15.1 [facility] Comment on above: Performed By: #### T ROPI #### [address] [place], [id number] Desktop Support Engineer: Daniella Lott MD Immature granulocytes/100 WBC (Bld) 0 % Normal 0 [facility] Comment on above: Performed By: #### T ROPI #### [address] [place], [id number] Desktop Support Engineer: Daniella Lott MD Lymphocytes (Bld) [#/Vol] 1.53 10*3/uL Normal 1.10-3.70 [facility] Comment on above: Performed By: #### T ROPI #### [facility] [address] [place], [place] [phone] Desktop Support Engineer: Daniella Lott MD Lymphocytes/100 WBC (Bld) 27 % Normal 24-43 [facility] Comment on above: Performed By: #### T ROPI #### [facility] [address] [place], [place] [phone] Desktop Support Engineer: Daniella Lott MD MCH (RBC) [Entitic mass] 31.6 pg Normal 25.2-33.5 [facility] Comment on above: Performed By: #### T ROPI #### [facility] [address] [place], [id number] Desktop Support Engineer: Daniella Lott MD MCHC (RBC) [Mass/Vol] 32.1 g/dL Normal 28.4-34.8 [facility] Comment on above: Performed By: #### T ROPI #### [facility] [address] [place], [id number] Desktop Support Engineer: Daniella Lott MD MCV (RBC) [Entitic vol] 98.4 fL Normal 82.6-102.9 [facility] Comment on above: Performed By: #### T ROPI #### [facility] [address] [place], [id number] Desktop Support Engineer: Daniella Lott MD Monocytes (Bld) [#/Vol] 0.65 10*3/uL Normal 0.10-1.20 [facility] Comment on above: Performed By: #### T ROPI #### [facility] [address] [place], [place] [phone] Desktop Support Engineer: Daniella Lott MD Monocytes/100 WBC (Bld) 11 % Normal 3-12 [facility] Comment on above: Performed By: #### T ROPI #### [facility] [address] [place], [id number] Desktop Support Engineer: Daniella Lott MD Neutrophil (Seg) 60 % Normal 36-65 [facility] Comment on above: Performed By: #### T ROPI #### [facility] [address] [place] [address] Desktop Support Engineer: Daniella Lott MD NRBC Automated 0.0 per 100 WBC Normal 0.0 [facility] Comment on above: Performed By: #### T ROPI #### [facility] [address] [place], [id number] Desktop Support Engineer: Daniella Lott MD Platelet mean volume (Bld) [Entitic vol] 10.1 fL Normal 8.1-13.5 [facility] Comment on above: Performed By: #### T ROPI #### [facility] [address] [place], [id number] Desktop Support Engineer: Daniella Lott MD Platelets (Bld) [#/Vol] 138 10*3/uL Normal 138-453 [facility] Comment on above: Performed By: #### T ROPI #### [facility] [address] [place] [address] Desktop Support Engineer: Daniella Lott MD RBC (Bld) [#/Vol] 3.20 10*6/uL Low 3.95-5.11 [facility] Comment on above: Performed By: #### T ROPI #### [facility] [address] [place], [id number] Desktop Support Engineer: Daniella Lott MD WBC (Bld) [#/Vol] 5.8 10*3/uL Normal 3.5-11.3 [facility] Comment on above: Performed By: #### T ROPI #### [facility] [address] [place], [place] [phone] Desktop Support Engineer: Daniella Lott MD Comp Metabolic Pr/rfx MGon 0 05-18-2023 Albumin [Mass/Vol] 3.1 g/dL Low 3.5-5.2 [facility] Comment on above: Performed By: #### T ROPI #### [facility] [address] [place], [place] [phone] Desktop Support Engineer: Daniella Lott MD Albumin/Glob Ratio 1.3 Normal 1.0-2.5 [facility] Comment on above: Performed By: #### T ROPI #### [facility] [address] [place], [place] [phone] Desktop Support Engineer: Daniella Lott MD Alkaline Phos 58 U/L Normal 35-104 [facility] Comment on above: Performed By: #### T ROPI #### [facility] [address] [place], [place] [phone] Desktop Support Engineer: Daniella Lott MD ALT [Catalytic activity/Vol] 5 U/L Normal 5-33 [facility] Comment on above: Performed By: #### T ROPI #### [facility] [address] [place] [address] Dr. [place], [place] [phone] Desktop Support Engineer: Daniella Lott MD Anion gap [Moles/Vol] 10 mmol/L Normal 9-17 [facility] Comment on above: Performed By: #### T ROPI #### [facility] [address] [place] [address] Dr. [place], [place] [phone] Desktop Support Engineer: Daniella Lott MD AST [Catalytic activity/Vol] 13 U/L Normal <32 [facility] Comment on above: Performed By: #### T ROPI #### [facility] [address] [place], [place] [phone] Desktop Support Engineer: Daniella Lott MD Bilirubin [Mass/Vol] 0.6 mg/dL Normal 0.3-1.2 [facility] Comment on above: Performed By: #### T ROPI #### [facility] [address] [place], [place] [phone] Desktop Support Engineer: Daniella Lott MD BUN/CRE Ratio 18 Normal 9-20 [facility] Comment on above: Performed By: #### T ROPI #### [facility] [address] [place] [address] Desktop Support Engineer: Daniella Lott MD Calcium [Mass/Vol] 8.0 mg/dL Low 8.6-10.4 [facility] Comment on above: Performed By: #### T ROPI #### [facility] [address] [place], [place] [phone] Desktop Support Engineer: Daniella Lott MD Chloride [Moles/Vol] 104 mmol/L Normal 98-107 [facility] Comment on above: Performed By: #### T ROPI #### [facility] [address] [place], [place] [phone] Desktop Support Engineer: Daniella Lott MD CO2 [Moles/Vol] 22 mmol/L Normal 20-31 [facility] Comment on above: Performed By: #### T ROPI #### [facility] [address] [place], [place] [phone] Desktop Support Engineer: Daniella Lott MD Creatinine [Mass/Vol] 1.3 mg/dL High 0.5-0.9 [facility] Comment on above: Performed By: #### T ROPI #### [facility] [address] [place], [place] [phone] Desktop Support Engineer: Daniella Lott MD GFR/1.73 sq M.predicted among non-blacks MDRD (S/P/Bld) [Vol rate/Area] 44 mL/min/{1.73_m2} Low >60 [facility] Comment on above: Result Comment: These [...] secretion. Performed By: #### T ROPI #### [facility] [address] [place] [address] Desktop Support Engineer: Daniella Lott MD Glucose [Mass/Vol] 83 mg/dL Normal 70-99 [facility] Comment on above: Performed By: #### T ROPI #### [facility] [address] [place] [address] Desktop Support Engineer: Daniella Lott MD Potassium [Moles/Vol] 4.1 mmol/L Normal 3.7-5.3 [facility] Comment on above: Performed By: #### T ROPI #### [facility] [address] [place] [address] Desktop Support Engineer: Daniella Lott MD Protein [Mass/Vol] 5.4 g/dL Low 6.4-8.3 [facility] Comment on above: Performed By: #### T ROPI #### [facility] [address] [place] [address] Desktop Support Engineer: Daniella Lott MD Sodium [Moles/Vol] 136 mmol/L Normal 135-144 [facility] Comment on above: Performed By: #### T ROPI #### [facility] [address] [place] [address] Desktop Support Engineer: Daniella Lott MD Urea nitrogen [Mass/Vol] 23 mg/dL Normal 8-23 [facility] Comment on above: Performed By: #### T ROPI #### [facility] [address] [place] [address] Desktop Support Engineer: Daniella Lott MD Comprehensive Metabolic Pane l w/ Reflex to MGon 05-18-2023 Albumin [Mass/Vol] 3.1 g/dL Low 3.5 - 5.2 g/dL [facility] Albumin/Globulin [Mass ratio] 1.3 {ratio} 1.0 - 2.5 [facility] ALP [Catalytic activity/Vol] 58 U/L 35 - 104 U/L [facility] ALT [Catalytic activity/Vol] 5 U/L 5 - 33 U/L [facility] Anion gap [Moles/Vol] 10 mmol/L 9 - 17 mmol/L [facility] AST [Catalytic activity/Vol] 13 U/L NINF - 32 U/L [facility] Bilirubin [Mass/Vol] 0.6 mg/dL 0.3 - 1.2 mg/dL [facility] Calcium [Mass/Vol] 8.0 mg/dL Low 8.6 - 10. 4 mg/dL [facility] Chloride [Moles/Vol] 104 mmol/L 98 - 107 mmol/L [facility] CO2 [Moles/Vol] 22 mmol/L 20 - 31 mmol/L [facility] Creatinine [Mass/Vol] 1.3 mg/dL High 0.5 - 0.9 mg/dL [facility] GFR/1.73 sq M.predicted MDRD (S/P/Bld) [Vol rate/Area] 44 mL/min/{1.73_m2} Low - PINF [facility] Comment on above: These results are not [...] [Mass/Vol] 83 mg/dL 70 - 99 mg/dL [facility] Interpretation and review of laboratory results Abnormal [facility] Potassium [Moles/Vol] 4.1 mmol/L 3.7 - 5.3 mmol/L [facility] Protein [Mass/Vol] 5.4 g/dL Low 6.4 - 8.3 g/dL [facility] Sodium [Moles/Vol] 136 mmol/L 135 - 144 mmol/L [facility] Urea nitrogen [Mass/Vol] 23 mg/dL 8 - 23 mg/dL [facility] Urea nitrogen/Creatinin e [Mass ratio] 18 mg/mg 9 - 20 [facility] EKG 12 LeadOrdered By: Adam Silvestre on 05-18-2023 Atrial Rate 58 BPM [facility] Work Phone: [place] 69 degrees [facility] Work Phone: P-R Interval 140 ms [facility] Work Phone: Q-T Interval 418 ms [facility] Work Phone: QRS Duration 82 ms [facility] Work Phone: QTc Calculation (Bazett) 410 ms [facility] Work Phone: R [place] 43 degrees [facility] Work Phone: T [place] 54 degrees [facility] Work Phone: Ventricular Rate 58 BPM [facility] Work Phone: [facility] Work Phone: EKG 12 Leadon 05-18-2023 Sinus bradycardia Otherwise normal ECG No previous ECGs available Confirmed by LAVERNE SILVESTRE ([id number]) on 05/18/2023 1:01:51 AM [facility] Laverne Silvestre MD - 05/18/2023 Sinus bradycardia Otherwise normal ECG No previous ECGs available Confirmed by LAVERNE SILVESTRE ([id number]) on 05/18/2023 1:01:51 AM [facility] Atrial Rate 75 BPM [facility] P [place] 91 degrees [facility] P-R Interval 154 ms [facility] Q-T Interval 380 ms [facility] QRS Duration 86 ms [facility] QTc Calculation (Bazett) 424 ms [facility] R [place] 38 degrees [facility] T [place] 50 degrees [facility] Ventricular Rate 75 BPM [facility] Normal sinus rhythm Normal ECG When compared with ECG of 17-MAY-2023 11:52, (unconfirmed) No significant change was found Confirmed by LAVERNE SILVESTRE ([id number]) on 05/18/2023 12:57:09 AM [facility] Laverne Silvestre MD - 05/18/2023 Normal sinus rhythm Normal ECG When compared with ECG of 17-MAY-2023 11:52, (unconfirmed) No significant change was found Confirmed by LAVERNE SILVESTRE ([id number]) on 05/18/2023 12:57:09 AM [facility] EKG Rhythm Stripon [facility] CBC with Auto Differentialon 05-17-2023 Basophils (Bld) [#/Vol] 0.03 10*3/uL [facility] Immature granulocytes (Bld) [#/Vol] [facility] Interpretation and review of laboratory results Abnormal [facility] Lymphocytes/100 WBC (Bld) 1.23 % [facility] Monocytes/100 WBC (Bld) 0.57 % [facility] Neutrophils/100 WBC (Bld) 75 % High 36 - 65 % [facility] Nucleated RBC/100 WBC (Bld) [Ratio] 0.0 % 0.0 per 100 WBC [facility] Segmented neutrophils/100 WBC (Bld) 5.64 % [facility] WBC other (Bld) [#/Vol] 7.6 [facility] CBC with Diffon 05-17-2023 Abs. Basophil 0.03 k/uL Normal 0.00-0.20 [facility] Comment on above: Performed By: #### T KUMARI #### [facility] [address] [place] [address] Desktop Support Engineer: Daniella Lott MD Abs.Imm.Granulocyt e <0.03 Normal 0.00-0.30 [facility] Comment on above: Performed By: #### T KUMARI #### [facility] [address] [place] [address] Desktop Support Engineer: Daniella Lott MD Abs.Neutrophil (Seg) 5.64 k/uL Normal 1.50-8.10 [facility] Comment on above: Performed By: #### T ROPI #### [facility] [address] [place] [address] Desktop Support Engineer: Daniella Lott MD Lymphocytes (Bld) [#/Vol] 1.23 10*3/uL Normal 1.10-3.70 [facility] Comment on above: Performed By: #### T ROPI #### [address] [place], [id number] Desktop Support Engineer: Daniella Lott MD Monocytes (Bld) [#/Vol] 0.57 10*3/uL Normal 0.10-1.20 [facility] Comment on above: Performed By: #### T ROPI #### [address] [place], [id number] Desktop Support Engineer: Daniella Lott MD Neutrophil (Seg) 75 % High 36-65 [facility] Comment on above: Performed By: #### T ROPI #### [address] [place], [place] [phone] Desktop Support Engineer: Daniella Lott MD NRBC Automated 0.0 per 100 WBC Normal 0.0 [facility] Comment on above: Performed By: #### T ROPI #### [facility] [address] [place] [address] Dr. Silva, [id number] Desktop Support Engineer: Daniella Lott MD WBC (Bld) [#/Vol] 7.6 10*3/uL Normal 3.5-11.3 [facility] Comment on above: Performed By: #### T ROPI #### [facility] [address] [place] [address] [place] [address] Desktop Support Engineer: Daniella Lott MD Basophils/100 WBC (Bld) 0 % Normal 0-2 [facility] Comment on above: Performed By: #### T ROPI #### [address] [place], [place] [phone] Desktop Support Engineer: Daniella Lott MD Eosinophils (Bld) [#/Vol] 0.11 10*3/uL Normal 0.00-0.44 [facility] Comment on above: Performed By: #### T ROPI #### [address] [place] [phone] Desktop Support Engineer: Daniella Lott MD Eosinophils/100 WBC (Bld) 1 % Normal 1-4 [facility] Comment on above: Performed By: #### T ROPI #### [address] [place] [phone] Desktop Support Engineer: Daniella Lott MD Erythrocyte distribution width (RBC) [Ratio] 13.7 % Normal 11.8-14.4 [facility] Comment on above: Performed By: #### T ROPI #### [address] [place] [phone] Desktop Support Engineer: Daniella Lott MD Hematocrit (Bld) [Volume fraction] 38.1 % Normal 36.3-47.1 [facility] Comment on above: Performed By: #### T ROPI #### [address] [place] [phone] Desktop Support Engineer: Daniella Lott MD Hemoglobin (Bld) [Mass/Vol] 11.8 g/dL Low 11.9-15.1 [facility] Comment on above: Performed By: #### T ROPI #### [address] [place] [address] Desktop Support Engineer: Daniella Lott MD Immature granulocytes/100 WBC (Bld) 0 % Normal 0 [facility] Comment on above: Performed By: #### T ROPI #### [address] [place] [address] Desktop Support Engineer: Daniella Lott MD Lymphocytes/100 WBC (Bld) 16 % Low 24-43 [facility] Comment on above: Performed By: #### T ROPI #### [address] [place], [id number] Desktop Support Engineer: Daniella Lott MD MCH (RBC) [Entitic mass] 30.6 pg Normal 25.2-33.5 [facility] Comment on above: Performed By: #### T ROPI #### [address] [place], [id number] Desktop Support Engineer: Daniella Lott MD MCHC (RBC) [Mass/Vol] 31.0 g/dL Normal 28.4-34.8 [facility] Comment on above: Performed By: #### T ROPI #### [address] [place], [id number] Desktop Support Engineer: Daniella Lott MD MCV (RBC) [Entitic vol] 99.0 fL Normal 82.6-102.9 [facility] Comment on above: Performed By: #### T ROPI #### [address] [place] [address] Desktop Support Engineer: Daniella Lott MD Monocytes/100 WBC (Bld) 8 % Normal 3-12 [facility] Comment on above: Performed By: #### T ROPI #### [address] [place] [address] Desktop Support Engineer: Daniella Lott MD Platelet mean volume (Bld) [Entitic vol] 9.5 fL Normal 8.1-13.5 [facility] Comment on above: Performed By: #### T ROPI #### [address] [place] [address] Desktop Support Engineer: Daniella Lott MD Platelets (Bld) [#/Vol] 169 10*3/uL Normal 138-453 [facility] Comment on above: Performed By: #### T ROPI #### [facility] [address] [place], [place] [phone] Desktop Support Engineer: Daniella Lott MD RBC (Bld) [#/Vol] 3.85 10*6/uL Low 3.95-5.11 [facility] Comment on above: Performed By: #### T ROPI #### [facility] [address] [place], [place] [phone] Desktop Support Engineer: Daniella Lott MD CTA CHEST ABDOMEN PELVIS [...] PROVIDED HISTORY: chest pain, into back, previous NV, and also known PVD with aortic stent TECHNOLOGIST PROVIDED HISTORY: chest pain, into back, previous NV, and also known PVD with aortic stent [...] Faisal Treviño MD 05/17/23 Final result Normal [facility] CTA Chest vessels and Abdomi nal [...] Further evaluation with pelvic ultrasound is recommended. [facility] RIS CONSOLIDATED EXAMINATION: CTA OF THE CHEST, [...] PROVIDED HISTORY: chest pain, into back, previous NV, and also known PVD with aortic stent TECHNOLOGIST PROVIDED HISTORY: chest pain, into back, previous NV, and also known PVD with aortic stent [...] show no acute process. [facility] Faisal Julian MD - 05/17/2023 EXAMINATION: [...] PROVIDED HISTORY: chest pain, into back, previous NV, and also known PVD with aortic stent TECHNOLOGIST PROVIDED HISTORY: chest pain, into back, previous NV, and also known PVD with aortic stent [...] Further evaluation with pelvic ultrasound is recommended. [facility] Radiology Study observation (narrative) [facility] CTA Chest vessels and Abdomi nal vessels and Pelvis vessels W contrast IVOrdered By: Faisal Treviño on 05-17-2023 [facility] Work Phone: Comp Metabolic Profon 2023 Albumin [Mass/Vol] 3.8 g/dL Normal 3.5-5.2 [facility] Comment on above: Performed By: #### T ROPI #### [facility] [address] [place] [address] Dr. [place], [place] [phone] Desktop Support Engineer: Daniella Lott MD Albumin/Glob Ratio 1.4 Normal 1.0-2.5 [facility] Comment on above: Performed By: #### T ROPI #### [facility] [address] [place] [address] [place] [address] Desktop Support Engineer: Daniella Lott MD Alkaline Phos 74 U/L Normal 35-104 [facility] Comment on above: Performed By: #### T ROPI #### [facility] [address] [place], [place] [phone] Desktop Support Engineer: Daniella Lott MD ALT [Catalytic activity/Vol] 11 U/L Normal 5-33 [facility] Comment on above: Performed By: #### T ROPI #### [facility] [address] [place] [address] [place] [address] Desktop Support Engineer: Daniella Lott MD Anion gap [Moles/Vol] 9 mmol/L Normal 9-17 [facility] Comment on above: Performed By: #### T ROPI #### [facility] [address] [place], [place] [phone] Desktop Support Engineer: Daniella Lott MD AST [Catalytic activity/Vol] 18 U/L Normal <32 [facility] Comment on above: Performed By: #### T ROPI #### [facility] [address] [place], [place] [phone] Desktop Support Engineer: Daniella Lott MD Bilirubin [Mass/Vol] 0.5 mg/dL Normal 0.3-1.2 [facility] Comment on above: Performed By: #### T ROPI #### [facility] [address] [place], [place] [phone] Desktop Support Engineer: Daniella Lott MD BUN/CRE Ratio 20 Normal 9-20 [facility] Comment on above: Performed By: #### T ROPI #### [facility] [address] [place], [place] [phone] Desktop Support Engineer: Daniella Lott MD Calcium [Mass/Vol] 8.7 mg/dL Normal 8.6-10.4 [facility] Comment on above: Performed By: #### T ROPI #### [facility] [address] [place] [address] Dr. [place], [place] [phone] Desktop Support Engineer: Daniella Lott MD Chloride [Moles/Vol] 108 mmol/L High 98-107 [facility] Comment on above: Performed By: #### T ROPI #### [facility] [address] [place], [place] [phone] Desktop Support Engineer: Daniella Lott MD CO2 [Moles/Vol] 25 mmol/L Normal 20-31 [facility] Comment on above: Performed By: #### T ROPI #### [facility] [address] [place], [place] [phone] Desktop Support Engineer: Daniella Lott MD Creatinine [Mass/Vol] 1.3 mg/dL High 0.5-0.9 [facility] Comment on above: Performed By: #### T KUMARI #### [facility] [address] [place] [address] Desktop Support Engineer: Daniella Lott MD GFR/1.73 sq M.predicted among non-blacks MDRD (S/P/Bld) [Vol rate/Area] 44 mL/min/{1.73_m2} Low >60 [facility] Comment on above: Result Comment: These [...] secretion. Performed By: #### T ROPI #### [facility] [address] [place] [address] Desktop Support Engineer: Daniella Lott MD Glucose [Mass/Vol] 99 mg/dL Normal 70-99 [facility] Comment on above: Performed By: #### T ROPI #### [address] [place] [address] Desktop Support Engineer: Daniella Lott MD Potassium [Moles/Vol] 4.5 mmol/L Normal 3.7-5.3 [facility] Comment on above: Performed By: #### T ROPI #### [facility] [address] [place], [place] [phone] Desktop Support Engineer: Daniella Lott MD Protein [Mass/Vol] 6.6 g/dL Normal 6.4-8.3 [facility] Comment on above: Performed By: #### T ROPI #### [facility] [address] [place] [address] Desktop Support Engineer: Daniella Lott MD Sodium [Moles/Vol] 142 mmol/L Normal 135-144 [facility] Comment on above: Performed By: #### T KUMARI #### [facility] [address] [place] [address] Desktop Support Engineer: Daniella Lott MD Urea nitrogen [Mass/Vol] 26 mg/dL High 8-23 [facility] Comment on above: Performed By: #### T BK #### [facility] [address] [place] [address] Desktop Support Engineer: Daniella Lott MD Comprehensive Metabolic Pane [facility] 05-17-2023 Albumin [Mass/Vol] 3.8 g/dL 3.5 - 5.2 g/dL [facility] Albumin/Globulin [Mass ratio] 1.4 {ratio} 1.0 - 2.5 [facility] ALP [Catalytic activity/Vol] 74 U/L 35 - 104 U/L [facility] ALT [Catalytic activity/Vol] 11 U/L 5 - 33 U/L [facility] Anion gap [Moles/Vol] 9 mmol/L 9 - 17 mmol/L [facility] AST [Catalytic activity/Vol] 18 U/L NINF - 32 U/L [facility] Bilirubin [Mass/Vol] 0.5 mg/dL 0.3 - 1.2 mg/dL [facility] Calcium [Mass/Vol] 8.7 mg/dL 8.6 - 10. 4 mg/dL [facility] Chloride [Moles/Vol] 108 mmol/L High 98 - 107 mmol/L [facility] CO2 [Moles/Vol] 25 mmol/L 20 - 31 mmol/L [facility] Creatinine [Mass/Vol] 1.3 mg/dL High 0.5 - 0.9 mg/dL [facility] GFR/1.73 sq M.predicted MDRD (S/P/Bld) [Vol rate/Area] 44 mL/min/{1.73_m2} Low - PINF [facility] Comment on above: These results are not [...] [Mass/Vol] 99 mg/dL 70 - 99 mg/dL [facility] Interpretation and review of laboratory results Abnormal [facility] Potassium [Moles/Vol] 4.5 mmol/L 3.7 - 5.3 mmol/L [facility] Protein [Mass/Vol] 6.6 g/dL 6.4 - 8.3 g/dL [facility] Sodium [Moles/Vol] 142 mmol/L 135 - 144 mmol/L [facility] Urea nitrogen [Mass/Vol] 26 mg/dL High 8 - 23 mg/dL [facility] Urea nitrogen/Creatinin e [Mass ratio] 20 mg/mg 9 - 20 [facility] Microscopic Urinalysison Bacteria LM Ql (Urine sed) 2+ Abnormal None [facility] Epithelial cells LM.HPF (Urine sed) [#/Area] 5 TO 10 [facility] Interpretation and review of laboratory results Abnormal [facility] Mucus Ql (Urine sed) TRACE Abnormal None [facility] RBC LM.HPF (Urine sed) [#/Area] 0 TO 2 [facility] Renal Epithelial, UA 0 TO 2 0 /HPF [facility] WBC LM.HPF (Urine sed) [#/Area] 5 TO 10 [facility] Portable XR Chest AP single [...] left mid lung, granuloma versus other nodule. [facility] Radiology Study observation (narrative) [facility] Portable XR Chest AP single viewOrdered By: Dacia Linton on 05-17-2023 [facility] Work Phone: Troponinon 05-17-2023 Troponin, High Sens 18 ng/L High 0-14 [facility] Comment on above: Result Comment: High Sensitivity Troponin values cannot be compared with other Troponin methodologies. Performed By: #### T BK, JP, CDP #### [facility] [address] [place] [address] Desktop Support Engineer: Daniella Lott MD Interpretation and review of laboratory results Abnormal [facility] Troponin I.cardiac High sensitivity method [Mass/Vol] 18 ng/L High 0 - 14 ng/L [facility] Comment on above: High Sensitivity Tro ponin values cannot be compared with other Troponin methodologies. [facility] Troponin, High Sens 19 ng/L High 0-14 [facility] Comment on above: Result Comment: High Sensitivity Troponin values cannot be compared with other Troponin methodologies. Performed By: #### T BK #### [facility] [address] [place] [address] Desktop Support Engineer: Daniella Lott MD Troponin, High Sens 19 ng/L High 0-14 [facility] Comment on above: Result Comment: High Sensitivity Troponin values cannot be compared with other Troponin methodologies. Performed By: #### T ROPI #### [facility] [address] [place] [address] Desktop Support Engineer: Daniella Lott MD Interpretation and review of laboratory results Abnormal [facility] Troponin I.cardiac High sensitivity method [Mass/Vol] 19 ng/L High 0 - 14 ng/L [facility] Comment on above: High Sensitivity Tro ponin values cannot be compared with other Troponin methodologies. [facility] Interpretation and review of laboratory results Abnormal [facility] Troponin I.cardiac High sensitivity method [Mass/Vol] 19 ng/L High 0 - 14 ng/L [facility] Comment on above: High Sensitivity Tro ponin values cannot be compared with other Troponin methodologies. [facility] UA w/Reflex Cultureon 2023 Bilirubin, SemiQt,Ur Negative Normal NEG [facility] Comment on above: Performed By: #### T ROPI #### [facility] [address] [place] [address] [place] [address] Desktop Support Engineer: Daniella Lott MD Blood, Urine Negative Normal NEG [facility] Comment on above: Performed By: #### T ROPI #### [facility] [address] [place] [address] Desktop Support Engineer: Daniella Lott MD Glucose Ql (U) Negative Normal NEG [facility] Comment on above: Performed By: #### T ROPI #### [facility] [address] [place] [address] Desktop Support Engineer: Daniella Lott MD Ketones Ql (U) Negative Normal NEG [facility] in [facility] Comment on above: Performed By: #### T ROPI #### [facility] [address] [place], [place] [phone] Desktop Support Engineer: Daniella Lott MD Nitrite,Ur Negative Normal NEG [facility] Comment on above: Performed By: #### T ROPI #### [address] [place], [place] [phone] Desktop Support Engineer: Daniella Lott MD PH,Ur 6.0 Normal 5.0-9.0 [facility] Comment on above: Performed By: #### T ROPI #### [facility] [address] [place] [address] [place] [address] Desktop Support Engineer: Daniella Lott MD Protein Ql (U) Negative Normal NEG [facility] Comment on above: Performed By: #### T ROPI #### [address] [place], [place] [phone] Desktop Support Engineer: Daniella Lott MD Spec. [place],Ur 1.015 Normal 1.010-1.020 [facility] Comment on above: Performed By: #### T ROPI #### [address] [place], [place] [phone] Desktop Support Engineer: Daniella Lott MD Urobilinogen,Ur Normal Normal 0.0-1.0 [facility] Comment on above: Performed By: #### T ROPI #### [address] [place], [id number] Desktop Support Engineer: Daniella Lott MD Clarity (U) Clear Normal [facility]AR [facility] Comment on above: Performed By: #### T ROPI #### [address] [place], [place] [phone] Desktop Support Engineer: Daniella Lott MD Color (U) Yellow Normal [facility]EL [facility] Comment on above: Performed By: #### T ROPI #### [address] [place] [address] Desktop Support Engineer: Daniella Lott MD Leukocyte esterase Test strip Ql (U) SMALL Abnormal NEG [facility] Comment on above: Performed By: #### T ROPI #### [facility] [address] [place] [address] Desktop Support Engineer: Daniella Lott MD US GALLBLADDER RUQon 024 [...] Faisal Treviño MD 05/17/23 Final result Normal [facility] US Gallbladderon 05-17-2023 1. Dilated common [...] No evidence of right upper quadrant ascites. [facility] RIS [facility] Faisal Treviño MD - 05/17/2023 [...] cm exophytic cyst upper pole right kidney. [facility] Radiology Study observation (narrative) [facility] Urinalysis with Reflex to Cu ltureon 05-17-2023 Bilirubin Ql (U) Negative NEGATIVE [facility] Glucose Test strip (U) [Mass/Vol] Negative NEGATIVE mg/dL [facility] Hemoglobin Auto test strip Ql (U) Negative NEGATIVE [facility] Interpretation and review of laboratory results Abnormal [facility] Ketones (U) [Mass/Vol] Negative NEGATIVE mg/dL [facility] Nitrite Ql (U) Negative NEGATIVE [facility] pH (U) 6.0 [pH] 5.0 - 9.0 [facility] Protein (U) [Mass/Vol] Negative NEGATIVE mg/dL [facility] Specific gravity (U) [Rel density] 1.015 1.010 - 1.020 [facility] Urobilinogen Qn (U) Normal 0.0 - 1.0 EU/dL [facility] Urinalysis,Microon 4 Bacteria 2+ Abnormal NONE [facility] Comment on above: Performed By: #### T JP BOURGEOIS, CDP #### [facility] [address] [place], [place] [phone] Desktop Support Engineer: Daniella Ltot MD Epithelial cells LM Ql (Urine sed) 5 TO 10 Normal 0-25 [facility] Comment on above: Performed By: #### JP SMITH, CDP #### [facility] [address] [place], [id number] Desktop Support Engineer: Daniella Lott MD Epithelial, Renal 0 TO 2 Normal 0 [facility] Comment on above: Performed By: #### T JP BOURGEOIS, CDP #### [facility] [address] [place], [id number] Desktop Support Engineer: Daniella Lott MD Mucus Strands TRACE Abnormal NONE [facility] Comment on above: Performed By: #### T JP BOURGEOIS, CDP ####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 Screening [facility] Start: 11-27-2025 LIPID SCREEN LIPID SCREEN [facility] Start: 07-28-2025 DIABETES SCREEN DIABETES SCREEN [facility] Start: 07-28-2025 Diabetes Screening Diabetes Screenin g [facility] Start: 05-29-2024 BP Controlled (<130/80) BP Controlle d (<130/80) [facility] Start: 05-29-2024 Creatinine measurement Serum Creatin ine [facility] Start: 05-25-2024 Annual PCP Team Juke Box Mechanic jeff Disease Visit Annual PCP Team Chronic Disease Visit [facility] Start: 05-19-2024 Complete blood count Hemoglobin/Cheo tocmit [facility] Start: 05-18-2024 GFR test (Diabetes, CKD 3-4, OR last GFR 15-59) GFR test (Diabetes, CKD 3-4, OR last GFR 15-59) [facility] Start: 05-18-2024 Hepatitis B surface antibody level LDL Cholesterol [facility] Start: 04-25-2024 Annual PCP Team Juke Box Mechanic jeff Disease Visit Annual PCP Team Chronic Disease Visit [facility] Start: 03-28-2024 Colonoscopy COLONOSCOPY [facility] Start: 03-28-2024 COLORECTAL CANCER SCREENING COLORECTAL CANCER SCREENING [facility] Start: 03-28-2024 Screening for malign ant neoplasm of colon [facility] Start: 03-14-2024 BP Controlled (<130/80) BP Controlle d (<130/80) [facility] Start: 01-29-2024 BP Controlled (<130/80) BP Controlle d (<130/80) [facility] Start: 01-29-2024 Complete blood count Hemoglobin/Cheo tocrit [facility] Start: 01-29-2024 Creatinine measurement Serum Creatin ine [facility] Start: 01-29-2024 Hemoglobin/Hematocrit Hemoglobin/Hem atocrit [facility] Start: 01-29-2024 Hepatitis B surface antibody level LDL Cholesterol [facility] Start: 01-29-2024 Serum Creatinine Serum Creatinine Cl [facility] Start: 01-15-2024 BP Controlled (<130/80) BP Controlle d (<130/80) [facility] Start: 11-28-2023 DIABETES SCREEN DIABETES SCREEN [facility] Start: 11-16-2023 End: 01-16-2024 25-hydroxyvitamin D3 [Mass/volume] in Serum or Plasma VITAMIN D 25 HYDROXY Lab Routine Benign hypertension with chronic kidney disease, stage III (HCC) Stage 3b chronic kidney disease (HCC) Hyperlipidemia, unspecified hyperlipidemia type Expected: 11/16/2023, Expires: 01/16/[address] [facility] Work Phone: Comment on above: Expected: 11/16/2023 , Expires: 01/16/2024 Start: 11-16-2023 End: 01-16-2024 ALBUMIN/CREAT RATIO RND UR ALBUMIN/CREAT RATIO RND UR Lab Routine Benign hypertension with chronic kidney disease, stage III (HCC) Stage 3b chronic kidney disease (HCC) Hyperlipidemia, unspecified hyperlipidemia type Expected: 11/16/2023, Expires: 01/16/[address] [facility] Work Phone: Comment on above: Expected: 11/16/2023 , Expires: 01/16/2024 Start: 11-16-2023 End: 01-16-2024 CBC panel - Blood by Automated count CBC Lab Routine Benign hypertension with chronic kidney disease, stage III (HCC) Stage 3b chronic kidney disease (HCC) Hyperlipidemia, unspecified hyperlipidemia type Expected: 11/16/2023, Expires: 01/16/[address] [facility] Work Phone: Comment on above: Expected: 11/16/2023 , Expires: 01/16/2024 Start: 11-16-2023 End: 01-16-2024 Creatinine [Mass/volume] in Urine collected for unspecified duration CREATININE RANDOM UR Lab Routine Benign hypertension with chronic kidney disease, stage III (HCC) Stage 3b chronic kidney disease (HCC) Hyperlipidemia, unspecified hyperlipidemia type Expected: 11/16/2023, Expires: 01/16/[address] [facility] Work Phone: Comment on above: Expected: 11/16/2023 , Expires: 01/16/2024 Start: 11-16-2023 End: 01-16-2024 Parathyrin.intact [Mass/volume] in Serum or Plasma PTH INTACT BLD Lab Routine Benign hypertension with chronic kidney disease, stage III (HCC) Stage 3b chronic kidney disease (HCC) Hyperlipidemia, unspecified hyperlipidemia type Expected: 11/16/2023, Expires: 01/16/[address] [facility] Work Phone: Comment on above: Expected: 11/16/2023 , Expires: 01/16/2024 Start: 11-16-2023 End: 01-16-2024 Protein [Mass/volume] in Urine PROTEIN RANDOM UR Lab Routine Benign hypertension with chronic kidney disease, stage III (HCC) Stage 3b chronic kidney disease (HCC) Hyperlipidemia, unspecified hyperlipidemia type Expected: 11/16/2023, Expires: 01/16/[address] [facility] Work Phone: Comment on above: Expected: 11/16/2023 , Expires: 01/16/2024 Start: 11-16-2023 End: 01-16-2024 Renal function 2000 panel - Serum or Plasma RENAL FUNCTION PANEL Lab Routine Benign hypertension with chronic kidney disease, stage III (HCC) Stage 3b chronic kidney disease (HCC) Hyperlipidemia, unspecified hyperlipidemia type Expected: 11/16/2023, Expires: 01/16/[address] [facility] Work Phone: Comment on above: Expected: 11/16/2023 , Expires: 01/16/2024 Start: 10-22-2023 ANNUAL PCP TEAM APPLE TURNER JEFF DISEASE VISIT ANNUAL PCP TEAM CHRONIC DISEASE VISIT [facility] Start: 10-22-2023 BP CONTROLLED (<130/80) BP CONTROLLE D (<130/80) [facility] Start: 10-22-2023 SHINGRIX VACCINE (1 of 2) SHINGRIX VACCINE (1 of 2) [facility] Comment on above: Postponed from 04/04 (Declined at this time) Start: 10-22-2023 Urine microalbumin profile [facility] Comment on above: Postponed from 06/10 (Declined at this time) Start: 07-29-2023 HEMOGLOBIN/HEMATOCRIT HEMOGLOBIN/HEM ATOCRIT [facility] Start: 07-29-2023 SERUM CREATININE SERUM CREATININE Cl [facility] Start: 07-27-2023 End: 10-26-2023 Basic metabolic 2000 panel - Serum or Plasma BASIC METABOLIC PNL Lab Routine Paroxysmal atrial fibrillation (HCC) Expected: 07/27/2023 (Approximate), Expires: 10/26/[address] [facility] Work Phone: Comment on above: Expected: 07/27/2023 (Approximate), Expires: 10/26/2023 Start: 07-27-2023 End: 10-26-2023 CBC W Auto Differential panel - Blood CBC + DIFF Lab Routine Paroxysmal atrial fibrillation (HCC) Expected: 07/27/2023 (Approximate), Expires: 10/26/[address] [facility] Work Phone: Comment on above: Expected: 07/27/2023 (Approximate), Expires: 10/26/2023 Start: 07-27-2023 End: 10-26-2023 Magnesium [Mass/volume] in Serum or Plasma MAGNESIUM BLD Lab Routine Paroxysmal atrial fibrillation (HCC) Expected: 07/27/2023 (Approximate), Expires: 10/26/[address] [facility] Work Phone: Comment on above: Expected: 07/27/2023 (Approximate), Expires: 10/26/2023 Start: 07-27-2023 End: 02-27-2024 Radiologic exam chest 2 views XR CHEST 2V FRONTAL/LAT Radiology Routine Paroxysmal atrial fibrillation (HCC) Expected: 07/27/2023 (Approximate), Expires: 02/27/[address] [facility] Work Phone: Comment on above: Expected: 07/27/2023 (Approximate), Expires: 02/27/2024 Start: 06-13-2023 End: 09-12-2023 Natriuretic peptide.B prohormone N-Terminal [Mass/volume] in Serum or Plasma NT PRO BNP Lab Routine Paroxysmal atrial fibrillation (HCC) Expected: 06/13/2023, Expires: 09/12/[address] [facility] Work Phone: Comment on above: Expected: 06/13/2023 , Expires: 09/12/2023 Start: 05-17-2023 End: 05-17-2023 Patient education based on identified need Health [facility] Start: 02-28-2023 Advance Directive Discussion Advance Directive Discussion [facility] Start: 02-28-2023 Annual Wellness Visi t (Medicare Advantage) Annual Wellness Visit (Medicare Advantage) [facility] Start: 02-28-2023 Depression Assessment Depression Ass essment [facility] Start: 01-27-2023 End: 03-29-2023 Basic metabolic 2000 panel - Serum or Plasma BASIC METABOLIC PNL Lab Routine Paroxysmal atrial fibrillation (HCC) Hypertension, unspecified type Atherosclerotic peripheral vascular disease with intermittent claudication (HCC) Expected: 01/27/2023, Expires: 03/29/[address] [facility] Work Phone: Comment on above: Expected: 01/27/2023 , Expires: 03/29/2023 Start: 01-27-2023 End: 03-29-2023 CBC W Auto Differential panel - Blood CBC + DIFF Lab Routine Paroxysmal atrial fibrillation (HCC) Hypertension, unspecified type Atherosclerotic peripheral vascular disease with intermittent claudication (HCC) Expected: 01/27/2023, Expires: 03/29/[address] [facility] Work Phone: Comment on above: Expected: 01/27/2023 , Expires: 03/29/2023 Start: 01-27-2023 End: 03-29-2023 Magnesium [Mass/volume] in Serum or Plasma MAGNESIUM BLD Lab Routine Paroxysmal atrial fibrillation (HCC) Hypertension, unspecified type Atherosclerotic peripheral vascular disease with intermittent claudication (HCC) Expected: 01/27/2023, Expires: 03/29/[address] [facility] Work Phone: Comment on above: Expected: 01/27/2023 , Expires: 03/29/2023 Start: 01-26-2023 BP CONTROLLED (<130/80) BP CONTROLLE D (<130/80) [facility] Start: 01-21-2023 End: 03-23-2023 Lipid 1996 panel - Serum or Plasma LIPID PANEL BASIC Lab Routine Coronary artery disease involving [place] coronary artery of [place] heart without angina pectoris Expected: 01/21/2023, Expires: 03/23/[address] [facility] Work Phone: Comment on above: Expected: 01/21/2023 , Expires: 03/23/2023 Start: 11-22-2022 End: 07-29-2023 OUTSIDE VENDOR CARDIAC OUTPATIENT EXTENDED RHYTHM RECORDING (WITHOUT TELEMETRY) OUTSIDE VENDOR CARDIAC OUTPATIENT EXTENDED RHYTHM RECORDING (WITHOUT TELEMETRY) Holter Routine Paroxysmal atrial fibrillation (HCC) Hypertension, unspecified type Atherosclerotic peripheral vascular disease with intermittent claudication (HCC) Expected: 11/22/2022, Expires: 07/29/[address] [facility] Work Phone: Comment on above: Expected: 11/22/2022 , Expires: 07/29/2023 Start: 10-29-2022 Influenza vaccination [facility] Start: 10-26-2022 HEMOGLOBIN/HEMATOCRIT HEMOGLOBIN/HEM ATOCRIT [facility] Start: 10-26-2022 SERUM CREATININE SERUM CREATININE Cl [facility] Start: 10-12-2022 ANNUAL PCP TEAM APPLE TURNER JEFF DISEASE VISIT ANNUAL PCP TEAM CHRONIC DISEASE VISIT [facility] Start: 07-26-2022 End: 09-25-2022 Basic metabolic 2000 panel - Serum or Plasma BASIC METABOLIC PNL Lab Routine Paroxysmal atrial fibrillation (HCC) History of ST elevation myocardial infarction (STEMI) PAF (paroxysmal atrial fibrillation) (HCC) Expected: 07/26/2022, Expires: 09/25/[address] [facility] Work Phone: Comment on above: Expected: 07/26/2022 , Expires: 09/25/2022 Start: 07-26-2022 End: 09-25-2022 CBC W Auto Differential panel - Blood CBC + DIFF Lab Routine Paroxysmal atrial fibrillation (HCC) History of ST elevation myocardial infarction (STEMI) PAF (paroxysmal atrial fibrillation) (HCC) Expected: 07/26/2022, Expires: 09/25/[address] [facility] Work Phone: Comment on above: Expected: 07/26/2022 , Expires: 09/25/2022 Start: 07-26-2022 End: 09-25-2022 Magnesium [Mass/volume] in Serum or Plasma MAGNESIUM BLD Lab Routine Paroxysmal atrial fibrillation (HCC) History of ST elevation myocardial infarction (STEMI) PAF (paroxysmal atrial fibrillation) (HCC) Expected: 07/26/2022, Expires: 09/25/[address] [facility] Work Phone: Comment on above: Expected: 07/26/2022 , Expires: 09/25/2022 Start: 04-28-2022 End: 01-26-2023 OUTSIDE VENDOR CARDIAC OUTPATIENT EXTENDED RHYTHM RECORDING (WITHOUT TELEMETRY) OUTSIDE VENDOR CARDIAC OUTPATIENT EXTENDED RHYTHM RECORDING (WITHOUT TELEMETRY) Holter Routine Paroxysmal atrial fibrillation (HCC) History of ST elevation myocardial infarction (STEMI) PAF (paroxysmal atrial fibrillation) (HCC) Expected: 04/28/2022, Expires: 01/26/[address] [facility] Work Phone: Comment on above: Expected: 04/28/2022 , Expires: 01/26/2023 Start: 03-23-2022 ANNUAL PCP TEAM APPLE TURNER JEFF DISEASE VISIT ANNUAL PCP TEAM CHRONIC DISEASE VISIT [facility] Start: 03-23-2022 BP CONTROLLED (<130/80) BP CONTROLLE D (<130/80) [facility] Start: 02-28-2022 ADVANCE DIRECTIVE DISCUSSION ADVANCE DIRECTIVE DISCUSSION [facility] Start: 02-28-2022 DEPRESSION ASSESSMENT DEPRESSION ASS ESSMENT [facility] Start: 02-10-2022 End: 04-12-2022 Lipid 1996 panel - Serum or Plasma LIPID PANEL BASIC Lab Routine Mixed hyperlipidemia Expected: 02/10/2022 (Approximate), Expires: 04/12/[address] [facility] Work Phone: Comment on above: Expected: 02/10/2022 (Approximate), Expires: 04/12/2022 Start: 11-27-2021 Hepatitis B surface antibody level LDL CHOLESTEROL [facility] Start: 11-27-2021 SERUM CREATININE SERUM CREATININE Cl [facility] Start: 10-29-2021 Influenza vaccination INFLUENZA (#1) [facility] Start: 09-27-2021 Adult depression screening assessment DEPRESSION SCREENING [facility] Start: 09-18-2021 COVID-19 VACCINE (#1) COVID-19 VACCI NE (#1) [facility] Comment on above: Postponed from 04/04 (Declined at this time) Start: 09-18-2021 COVID-19 VACCINE (1) COVID-19 VACCIN E (1) [facility] Comment on above: Postponed from 04/04 (Declined at this time) Start: 07-29-2021 Mammography [facility] Start: 07-29-2021 Screening for malign ant neoplasm of breast Mammogram Screening [facility] Start: 07-18-2021 HEMOGLOBIN/HEMATOCRIT HEMOGLOBIN/HEM ATOCRIT [facility] Start: 03-20-2021 BP CONTROLLED (<130/80) BP CONTROLLE D (<130/80) [facility] Start: 02-28-2021 ADVANCE DIRECTIVE DISCUSSION ADVANCE DIRECTIVE DISCUSSION [facility] Start: 02-28-2021 DEPRESSION ASSESSMENT DEPRESSION ASS ESSMENT [facility] Start: 06-10-2016 DTaP/Tdap/Td vaccine (1 - Tdap) DTaP/Tdap/Td vaccine (1 - Tdap) [facility] Start: 06-10-2016 Urine microalbumin profile DTAP,TDAP,TD (1 - Tdap) [facility] Start: 2011 Respiratory Syncytia l Virus (RSV) or age 60 yrs+ (1 - 1-dose 60+ series) Respiratory Syncytial Virus (RSV) or age 60 yrs+ (1 - 1-dose 60+ series) [facility] Start: 2011 RSV Vaccine (1 - 1-d ose 60+ series) RSV Vaccine (1 - 1-dose 60+ series) [facility] Start: 2001 Screening for malign ant neoplasm of breast Breast cancer screen [facility] Start: 2001 Shingles vaccine (1 of 2) Shingles vaccine (1 of 2) [facility] Start: 2001 SHINGRIX VACCINE (1 of 2) SHINGRIX VACCINE (1 of 2) [facility] Start: 1996 COLOGUARD (FIT-DNA) COLOGUARD (FIT-D NA) [facility] Start: [address] COLONOGRAPHY [facility] Start: 1996 FECAL OCCULT BLOOD FECAL OCCULT BLOO D [facility] Start: 1996 Screening for malign ant neoplasm of colon [facility] Start: 1996 SIGMOIDOSCOPY SIGMOIDOSCOPY [facility] Start: 1969 Hepatitis C screening Hepatitis C sc reen [employer] Start: 1963 Depression Screen Depression Screen [employer] Start: 1961 Lipid panel Lipids [employer] Start: 1951 COVID-19 VACCINE (#1) COVID-19 VACCI NE (#1) [facility] End: 08-24-2023 CBC W Auto Differential panel - Blood CBC auto differential Lab Routine Tomorrow AM for 99 Occurrences starting 05/18/2023 until 08/24/2023, 2 completed [employer] Comment on above: Tomorrow AM for 99 O ccurrences starting 05/18/2023 until 08/24/2023, 2 completed End: 08-24-2023 Comprehensive Metabolic Panel w/ Reflex to MG Comprehensive Metabolic Panel w/ Reflex to MG Lab Routine Tomorrow AM for 99 Occurrences starting 05/18/2023 until 08/24/2023, 2 completed [employer] Comment on above: Tomorrow AM for 99 O ccurrences starting 05/18/2023 until 08/24/2023, 2 completed End: 12-11-2022 Ct orbit sella/post fossa/ear w/o contrast matrl CT TEMP BONES WO IVCON Radiology Routine Pulsatile tinnitus, left ear Lightheadedness 1 Occurrences starting 11/11/2021 until 12/11/[address] [facility] Work Phone: Comment on above: 1 Occurrences starti ng 11/11/2021 until 12/11/2022 End: 05-18-2023 Culture, Urine [employer] Comment on above: One Time for 1 Occur rences starting 05/18/2023 until 05/18/2023 End: 08-11-2022 ECG COMPLETE ECG COMPLETE ECG Routine Paroxysmal atrial fibrillation (HCC) 1 Occurrences starting 08/11/2021 until 08/11/[address] [facility] Work Phone: Comment on above: 1 Occurrences starti ng 08/11/2021 until 08/11/2022 End: 01-26-2023 ECG COMPLETE ECG COMPLETE ECG Routine Paroxysmal atrial fibrillation (HCC) History of ST elevation myocardial infarction (STEMI) PAF (paroxysmal atrial fibrillation) (HCC) 1 Occurrences starting 01/26/2022 until 01/26/[address] [facility] Work Phone: Comment on above: 1 Occurrences starti ng 01/26/2022 until 01/26/2023 End: 07-29-2023 ECG COMPLETE ECG COMPLETE ECG Routine Paroxysmal atrial fibrillation (HCC) Hypertension, unspecified type Atherosclerotic peripheral vascular disease with intermittent claudication (HCC) 1 Occurrences starting 07/28/2022 until 07/29/[address] [facility] Work Phone: Comment on above: 1 Occurrences starti ng 07/28/2022 until 07/29/2023 ECG COMPLETE ECG COMPLETE ECG 01/28/2023 10:20 AM EST [facility] End: 05-18-2023 Echo (TTE) complete (PRN contrast/bubble/strain/ 3D) Echo (TTE) complete (PRN contrast/bubble/strain/3D) CV Echocardiography Routine Chest pain, unspecified type Right sided abdominal pain Coronary artery disease involving [place] coronary artery of [place] heart without angina pectoris Mixed hyperlipidemia Essential hypertension Acute deep vein thrombosis (DVT) of distal vein of right lower extremity (HCC) One Time for 1 Occurrences starting 05/18/2023 until 05/18/2023 [employer] Comment on above: One Time for 1 Occur rences starting 05/18/2023 until 05/18/2023 EKG 12 Lead EKG 12 Lead ECG Routine 05/19/2023 5:18 AM EDT [employer] End: 05-19-2023 Hemoglobin A1c/Hemoglobin.total in Blood Hemoglobin A1C Lab Routine Tomorrow AM for 1 Occurrences starting 05/19/2023 until 05/19/2023 [employer] Comment on above: Tomorrow AM for 1 Oc currences starting 05/19/2023 until 05/19/2023 Hemoglobin A1c/Hemoglobin.total in Blood Hemoglobin A1C Lab Routine 05/19/2023 5:30 AM EDT [employer] End: 05-19-2023 Lipid panel Lipid Panel Lab Routine Tomorrow AM for 1 Occurrences starting 05/19/2023 until 05/19/2023 [employer] Comment on above: Tomorrow AM for 1 Oc currences starting 05/19/2023 until 05/19/2023 Lipid panel Lipid Panel Lab Routine 05/19/2023 5:30 AM EDT [employer] End: 04-02-2023 ESTHER SCREENING ESTHER SCREENING Radiology Routine Encounter for screening mammogram for breast cancer 1 Occurrences starting 03/03/2022 until 04/02/[address] [facility] Work Phone: Comment on above: 1 Occurrences starti ng 03/03/2022 until 04/02/2023 End: 03-03-2024 ESTHER SCREENING ESTHER SCREENING Radiology Routine Encounter for screening mammogram for breast cancer 1 Occurrences starting 02/02/2023 until 03/03/[address] [facility] Work Phone: Comment on above: 1 Occurrences starti ng 02/02/2023 until 03/03/2024 MR Abdomen WO and W contrast IV MRI ABDOMEN W WO CONTRAST MRCP Imaging Routine 05/18/2023 1:05 PM EDT [employer] OUTSIDE VENDOR CARDI AC OUTPATIENT EXTENDED RHYTHM RECORDING (WITHOUT TELEMETRY) OUTSIDE VENDOR CARDIAC OUTPATIENT EXTENDED RHYTHM RECORDING (WITHOUT TELEMETRY) Holter Routine Paroxysmal atrial fibrillation (HCC) Ordered: 06/26/[address] [facility] Work Phone: Comment on above: Ordered: 06/26/2021 OUTSIDE VENDOR CARDI AC OUTPATIENT EXTENDED RHYTHM RECORDING (WITHOUT TELEMETRY) OUTSIDE VENDOR CARDIAC OUTPATIENT EXTENDED RHYTHM RECORDING (WITHOUT TELEMETRY) Holter Routine Paroxysmal atrial fibrillation (HCC) History of ST elevation myocardial infarction (STEMI) PAF (paroxysmal atrial fibrillation) (HCC) Ordered: 01/26/[address] [facility] Work Phone: Comment on above: Ordered: 01/26/2022 OUTSIDE VENDOR CARDI AC OUTPATIENT EXTENDED RHYTHM RECORDING (WITHOUT TELEMETRY) OUTSIDE VENDOR CARDIAC OUTPATIENT EXTENDED RHYTHM RECORDING (WITHOUT TELEMETRY) Holter Routine Paroxysmal atrial fibrillation (HCC) Ordered: 01/28/[address] [facility] Work Phone: Comment on above: Ordered: 01/28/2023 Oxygen therapy [[facility] [place] [facility]] Initiate Oxygen Therapy Protocol Respiratory Care Routine As Needed until discontinued starting 05/17/2023 [facility] Comment on above: As Needed until disc ontinued starting 05/17/2023 End: 10-30-2022 PVR ANK PRESS [facility] PVR ANK PRESS [facility] Vascular Lab Routine PVD (peripheral vascular disease) (HCC) 1 Occurrences starting 10/30/2021 until 10/30/[address] [facility] Work Phone: Comment on above: 1 Occurrences starti ng 10/30/2021 until 10/30/2022 End: 11-16-2023 PVR ANK PRESS [facility] PVR ANK PRESS [facility] Vascular Lab Routine PVD (peripheral vascular disease) (HCC) Aortoiliac occlusive disease (HCC) Carotid artery stenosis, asymptomatic, bilateral 1 Occurrences starting 11/15/2022 until 11/16/[address] [facility] Work Phone: Comment on above: 1 Occurrences starti ng 11/15/2022 until 11/16/2023 End: 02-25-2023 Radiologic exam chest 2 views XR CHEST 2V FRONTAL/LAT Radiology Routine Paroxysmal atrial fibrillation (HCC) History of ST elevation myocardial infarction (STEMI) PAF (paroxysmal atrial fibrillation) (HCC) 1 Occurrences starting 01/26/2022 until 02/25/[address] [facility] Work Phone: Comment on above: 1 Occurrences starti ng 01/26/2022 until 02/25/2023 End: 01-15-2024 [facility] Audiology Routine Pulsatile tinnitus, left ear 1 Occurrences starting 01/14/2023 until 01/15/[address] [facility] Work Phone: Comment on above: 1 Occurrences starti ng 01/14/2023 until 01/15/2024 End: 11-16-2023 US ABD AORTA COMPLETE [facility]AS LAB US ABD AORTA COMPLETE [facility]AS [facility] Vascular Lab Routine PVD (peripheral vascular disease) (HCC) Aortoiliac occlusive disease (HCC) Carotid artery stenosis, asymptomatic, bilateral 1 Occurrences starting 11/15/2022 until 11/16/[address] [facility] Work Phone: Comment on above: 1 Occurrences starti ng 11/15/2022 until 11/16/2023 End: 11-16-2023 US CAROTID ARTERIES [facility] US CAROTID ARTERIES [facility] Vascular Lab Routine PVD (peripheral vascular disease) (HCC) Aortoiliac occlusive disease (HCC) Carotid artery stenosis, asymptomatic, bilateral 1 Occurrences starting 11/15/2022 until 11/16/[address] [facility] Work Phone: Comment on above: 1 Occurrences starti ng 11/15/2022 until 11/16/2023 [facility] Immunizations Immunization Date Immunization Notes Care Provider [facility] 11-27-2020 influenza, high-dose , quadrivalent vaccine (FLUZONE HIGH DOSE QUADRIVALENT) Risa Warner APRN.[employer] Work Phone: [facility] 11-27-2020 influenza virus vacc ine, unspecified formulation Risa Warner APRN.[employer] Work Phone: [facility] 03-20-2020 influenza, high-dose , quadrivalent vaccine (FLUZONE HIGH DOSE QUADRIVALENT) Risa Warner APRN.[employer] Work Phone: [facility] 12-01-2018 influenza, high dose seasonal, preservative-free Risa Warner APRN.[employer] Work Phone: [facility] Work Phone: 12-01-2018 pneumococcal polysaccharide vaccine, 23 valent Risa Warner APRN.[employer] Work Phone: [facility] Work Phone: 01-25-2017 influenza, high dose seasonal, preservative-free Risa Warner APRN.CNP Work Phone: [facility] 06-09-2016 pneumococcal conjuga te vaccine, 13 valent Risa Warner APRN.CNP Work Phone: [facility] 06-09-2016 tetanus and diphther ia toxoids, adsorbed, preservative free, for adult use (5 Lf of tetanus toxoid and 2 Lf of diphtheria toxoid) Risa Warner APRN.CNP Work Phone: [facility] Payers Date Payer Category Payer Unknown [id number] 2022 Unknown [id number] 2021 Medicare UHC AARP MEDICAR E [facility] MEDICARE O [id number] 2021-Present [phone] [address] [address] [place] [address] O [id number] 2021 Medicare [id number] 2021 Medicare [id number] 2015 Unknown [id number] 1959 Medicare [id number] 1959 Private Health Insurance [id number] 1951 Unknown [id number] 1950 Unknown [id number] 1951 Unknown [id number] [facility] [id number] Social History Date Type Detail Facility Start: 02-17-2016 End: 11-10-2021 Tobacco smoking status NHIS Ex-smoker [facility] Work Phone: End: 02-28-2009 History of tobacco use Current smoker [facility] Work Phone: End: 02-28-2009 History of tobacco use Cigarette Smoker [facility] Work Phone: Start: 02-17-2016 End: 07-28-2022 Cigarettes smoked current (pack per day) - Reported 1.5 [facility] Start: 02-17-2016 End: 11-10-2021 Tobacco use and exposure Smokeless tobacco non-user [facility] Work Phone: Start: 03-23-2021 End: 04-25-2023 Alcohol intake Current drinker of alcohol (finding) [facility] Start: 09-28-2020 History SDOH Alcohol Frequency 1 [facility] Start: 09-28-2020 History SDOH Alcohol Std Drinks 98 [facility] Start: 08-19-2015 End: 06-30-2016 History SDOH Alcohol Comment social [facility] Start: 09-28-2020 History SDOH Social Connections Phone 3 [facility] Start: 09-28-2020 History SDOH Social Connections Get Together 2 [facility] Start: 09-28-2020 History SDOH Social Connections Living 4 [facility] Start: 09-28-2020 History SDOH Physica l Activity DPW 5 [facility] Start: 09-27-2020 Education 10 [facility] Start: 1950 Sex Assigned At Female [facility] Start: 06-07-2021 End: 01-26-2022 Exposure to SARS-CoV-2 (event) Not sure [facility] Start: 10-02-2021 End: 11-11-2021 Exposure to SARS-CoV-2 (event) Unable to assess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 health care facility Coronary artery disease involving [place] coronary artery of [place] heart without angina pectoris Mixed hyperlipidemia Paroxysmal atrial fibrillation (HCC) Atrial fibrillation Essential hypertension Unspecified essential hypertension Atherosclerotic peripheral vascular disease with intermittent claudication (HCC) Atherosclerosis of [place] arteries of the extremities with intermittent claudication [...] unspecified hyperlipidemia type [facility]* Diagnosis Carotid artery stenosis, asymptomatic, bilateral- Primary PVD (peripheral vascular disease) (HCC) Peripheral vascular disease, unspecified 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 [facility]* Diagnosis APPOINTMENT CANCELLED- Primary Pulsatile tinnitus, left ear [facility] Diagnosis Essential hypertension Unspecified essential hypertension documented in this encounter [facility] note* Diagnosis Paroxysmal atrial fibrillation (HCC)- Primary Atrial fibrillation 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 documented in this encounter [facility] note* Diagnosis Encounter for screening mammogram for breast cancer documented in this encounter [facility] note* Diagnosis Right sided abdominal pain- Primary Abdominal pain, unspecified site Chest pain, unspecified type Right sided abdominal pain Abdominal pain, unspecified site Coronary artery disease involving [place] coronary artery of [place] heart without angina pectoris Mixed hyperlipidemia Essential hypertension Unspecified essential hypertension Acute deep vein thrombosis (DVT) of distal vein of right lower extremity (HCC) Essential hypertension Unspecified essential hypertension Coronary artery disease involving [place] coronary artery of [place] heart without angina pectoris documented in this encounter [facility] note* Diagnosis Medication management- Primary Encounter for long-term (current) use of other medications documented in this encounter [facility] note* Diagnosis Chronic right hip pain- Primary Pain in joint, pelvic region and thigh Spinal stenosis of lumbar region, unspecified whether neurogenic claudication present documented in this encounter [facility] note* Diagnosis Paroxysmal atrial fibrillation (HCC)- Primary Atrial fibrillation Acute on chronic heart failure with preserved ejection fraction (HCC) documented in this encounter [facility] CenterHistory [facility] Present illness Narrative History of Present Illness not supported for this document type No History of Present Illness [facility] Work Phone: Patient problem outcome Narrative Includes: Evaluations & Outcomes for active Goals No Outcomes [facility]edHealth [facility] Work Phone: Reason for referral (narrative)* Outpatient Procedure (Routine) - Closed Specialty Diagnoses / Procedures Referred By Contac t [facility] Diagnoses Paroxysmal atrial fibrillation (HCC) Procedures ECG COMPLETE ECG ROUTINE ECG W/LEAST 12 LDS W/I&R Rupesh Gu DO [address] [place] [address] [facility] [place] [address] [place] [address] Referral ID Status Reason Start Date Expiration Date V isits Requested Visits Authorized [id number] Closed Auto-Generate d Referral 08/11/2021 08/11/2022 1 1 [facility] for referral (narrative)* Outpatient Procedure (Routine) - Authorized Specialty Diagnoses / Procedures Referred By Contac t Referred To Contact [facility] Diagnoses PVD (peripheral vascular disease) (HCC) Procedures PVR ANK PRESS [facility] NON-INVAS PHYSIOLOGIC STD EXTREMITY ART 2 LEVEL Renae German APRN.MANAGER PRODUCE [address] [place] [address] [facility] [place] [address] [place] [address] Referral ID Status Reason Start Date Expiration Date Visits Requested Visits Authorized [id number] Authorized Auto-Generat ed Referral 10/30/2021 10/30/2022 1 1 [facility] for referral (narrative)* Outpatient Procedure (Routine) - Pending Review Specialty Diagnoses / Procedures Referred By Contac t Referred To Contact [facility] Diagnoses Paroxysmal atrial fibrillation (HCC) History of ST elevation myocardial infarction (STEMI) PAF (paroxysmal atrial fibrillation) (HCC) Procedures ECG COMPLETE ECG ROUTINE ECG W/LEAST 12 LDS W/I&[place] [address] [place] [address] [facility] [place] [address] [place] [address] Referral ID Status Reason Start Date Expiration Date Visits Requested Visits Authorized [id number] Pending Review Auto-Generat ed Referral 2 01/26/2023 1 1 [facility] for referral (narrative)* Diagnostic Procedure Only (Routine) - Pending Review Specialty Diagnoses / Procedures Referred By Manuel t Referred To Contact [facility] Diagnoses Encounter for screening mammogram for breast cancer Procedures ESTHER SCREENING SCREENING MAMMOGRAPHY BI 2-[place] [address] [place] [address] [facility] [address] [place] [address] Referral ID Status Reason Start Date Expiration Date Visits Requested Visits Authorized [id number] Pending Review Auto-Generat ed Referral 03/03/2022 04/02/2023 1 1 [facility] for referral (narrative)* Outpatient Procedure (Routine) - Pending Review Specialty Diagnoses / Procedures Referred By Contac t Referred To Contact [facility] Diagnoses Paroxysmal atrial fibrillation (HCC) Hypertension, unspecified type Atherosclerotic peripheral vascular disease with intermittent claudication (HCC) Procedures ECG COMPLETE ECG ROUTINE ECG W/LEAST 12 LDS W/I&[place] [address] [place] [address] [address] Referral ID Status Reason Start Date Expiration Date Visits Requested Visits Authorized [id number] Pending Review Auto-Generat ed Referral 07/28/2022 07/28/2023 1 1 [facility] for referral (narrative)* Outpatient Procedure (Routine) - Authorized Specialty Diagnoses / Procedures Referred By Contac t Referred To Contact [facility] Diagnoses PVD (peripheral vascular disease) (HCC) Aortoiliac occlusive disease (HCC) Carotid artery stenosis, asymptomatic, bilateral Procedures US ABD AORTA COMPLETE VAS LAB DUP-SCAN AORTA IVC ILIAC VASCL/BPGS COMPLETE Sergo Tucker MD [address] [address] Referral ID Status Reason Start Date Expiration Date Visits Requested Visits Authorized [id number] Authorized Auto-Generat ed Referral 11/15/2022 11/15/2023 1 1 * Outpatient Procedure (Routine) - Authorized Specialty Diagnoses / Procedures Referred By Contac t Referred To Contact [facility] Diagnoses PVD (peripheral vascular disease) (HCC) Aortoiliac occlusive disease (HCC) Carotid artery stenosis, asymptomatic, bilateral Procedures PVR ANK PRESS [facility] NON-INVAS PHYSIOLOGIC STD EXTREMITY ART 2 LEVEL Sergo Tucker MD [address] [address] Referral ID Status Reason Start Date Expiration Date Visits Requested Visits Authorized [id number] Authorized Auto-Generat ed Referral 11/15/2022 11/15/2023 1 1 * Outpatient Procedure (Routine) - Authorized Specialty Diagnoses / Procedures Referred By Imanac t Referred To Contact [facility] Diagnoses PVD (peripheral vascular disease) (HCC) Aortoiliac occlusive disease (HCC) Carotid artery stenosis, asymptomatic, bilateral Procedures US CAROTID ARTERIES [facility] DUPLEX SCAN EXTRACRANIAL ART COMPL BI STUDY Sergo Tucker MD [address] [address] Referral ID Status Reason Start Date Expiration Date Visits Requested Visits Authorized [id number] Authorized Auto-Generat ed Referral 11/15/2022 11/15/2023 1 1 [facility] for referral (narrative)* Outpatient Procedure (Routine) - Pending Review Specialty Diagnoses / Procedures Referred By Contac t Referred To Contact [facility] Diagnoses Paroxysmal atrial fibrillation (HCC) Procedures ECG COMPLETE ECG ROUTINE ECG W/LEAST 12 LDS W/I&[place] [address] [place] [address] [facility] [address] [address] Referral ID Status Reason Start Date Expiration Date Visits Requested Visits Authorized [id number] Pending Review Auto-Generat ed Referral 01/28/2023 01/28/2024 1 1 [facility] Diagnostic Procedure Only (Routine) - Pending Review Specialty Diagnoses / Procedures Referred By Manuel preston Referred To Contact [facility] Diagnoses Encounter for screening mammogram for breast cancer Procedures ESTHER SCREENING SCREENING MAMMOGRAPHY BI 2-VIEW [place] [address] [place] [address] [facility] [address] [place] [address] Referral ID Status Reason Start Date Expiration Date Visits Requested Visits Authorized [id number] Pending Review Auto-Generat ed Referral 02/02/2023 03/03/2024 1 1 EDITO EllisWynn Magdy for referral (narrative)No Reason for Referral Recorded [facility] Work Phone: Review of systems Narrative - Reported Review of Systems not supported for this document type No [facility]: Summary Purpose Family History No Family History Records FoundNo Family History Records FoundNo Family History Records FoundNo Family History Records FoundNo Family History Records Found Includes: Family History in patient's chart No Family History RecordedNo Family History Records FoundNo Family History Records Found Advance Directives No Advanced Directives Records FoundDocuments on File Type Date Recorded 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 Advance Directive(s) 03/28/2019 10:10 AM Advance Directive(s) 07/20/2018 10:43 AM Advance Directive(s) 07/19/2018 7:10 AM Advance Directive(s) 07/14/2018 11:46 AM Advance Directive(s) 06/09/2017 12:41 PM Documents on File Type Date Recorded 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 Advance Directive(s) 03/28/2019 10:10 AM Advance Directive(s) 07/20/2018 10:43 AM Advance Directive(s) 07/19/2018 7:10 AM Advance Directive(s) 07/14/2018 11:46 AM Advance Directive(s) 06/09/2017 12:41 PM Documents on File Type Date Recorded 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 Advance Directive(s) 07/20/2018 10:43 AM Documents on File Type Date Recorded 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 Advance Directive(s) 07/20/2018 10:43 AM [...] laterality Procedures CONSULT TO HEADACHE CLINIC OFFICE/OUTPATIENT [facility] 60-[place] [address] [place] [address] Referral ID Status Reason Start Date Expiration Date Visits Requested Visits Authorized [id number] Pending Review PCP Requested Referral 10/12/2021 10/12/2022 1 1 Specialty Diagnoses / Procedures Referred By Contac t Referred To Contact Ent - Otolaryngology Diagnoses Tension-type headache, not intractable, unspecified chronicity pattern Tinnitus, unspecified laterality Procedures CONSULT TO ENT OFFICE/OUTPATIENT [facility] 60-[place] [address] [place] [address] Referral ID Status Reason Start Date Expiration Date Visits Requested Visits Authorized [id number] Pending Review PCP Requested Referral 10/12/2021 10/12/2022 1 1 Specialty Diagnoses / Procedures Referred By Contac t Referred To Contact CT IMAGING Diagnoses Pulsatile tinnitus, left ear Lightheadedness Procedures CT TEMP BONES WO IVCON CT ORBIT SELLA/POST FOSSA/EAR W/O CONTRAST Macrina Cobian PA-C [address] [place] [address] Ct Imaging Referral ID Status Reason Start Date Expiration Date Visits Requested Visits Authorized [id number] Authorized Auto-Generat ed Referral 11/11/2021 12/11/2022 1 1 Physical Exam Physical Exam not supported for this document type No Physical Exam Recorded Additional Source Comments INFORMATION SOURCE (unrecogn ized section and content) DATE CREATED AUTHOR 08/24/2017 [facility] DATE CREATED AUTHOR AUTHOR'S ORGANIZ ATION 01/16/2022 [facility] DATE CREATED AUTHOR AUTHOR'S ORGANIZ ATION 02/26/2022 [facility] DATE CREATED AUTHOR AUTHOR'S ORGANIZ ATION 03/14/2023 [facility] DATE CREATED AUTHOR AUTHOR'S ORGANIZ ATION 05/17/2023 [facility] DATE CREATED AUTHOR AUTHOR'S ORGANIZ ATION 05/21/2023 [facility] DATE CREATED AUTHOR AUTHOR'S ORGANIZ ATION 06/01/2023 [facility] Source Comments (unrecognize d section and content) In the event this informatio n is protected by the Federal Confidentiality of Alcohol and Drug Abuse Patient Records regulations: The Federal rules restrict any use of the information to criminally investigate or prosecute any alcohol or drug abuse patient.[facility] the event this information is protected by the Federal Confidentiality of Alcohol and Drug Abuse Patient Records regulations: The Federal rules restrict any use of the information to criminally investigate or prosecute any alcohol or drug abuse patient.[facility] the event this information is protected by the Federal Confidentiality of Alcohol and Drug Abuse Patient Records regulations: The Federal rules restrict any use of the information to criminally investigate or prosecute any alcohol or drug abuse patient.[facility] the event this information is protected by the Federal Confidentiality of Alcohol and Drug Abuse Patient Records regulations: The Federal rules restrict any use of the information to criminally investigate or prosecute any alcohol or drug abuse patient.[facility] Center[facility] the event this information is protected by the Federal Confidentiality of Alcohol and Drug Abuse Patient Records regulations: The Federal rules restrict any use of the information to criminally investigate or prosecute any alcohol or drug abuse patient.[facility] Center[facility] the event this information is protected by the Federal Confidentiality of Alcohol and Drug Abuse Patient Records regulations: The Federal rules restrict any use of the information to criminally investigate or prosecute any alcohol or drug abuse patient.[facility] Center[facility] the event this information is protected by the Federal Confidentiality of Alcohol and Drug Abuse Patient Records regulations: The Federal rules restrict any use of the information to criminally investigate or prosecute any alcohol or drug abuse patient.[facility] Center[facility] the event this information is protected by the Federal Confidentiality of Alcohol and Drug Abuse Patient Records regulations: The Federal rules restrict any use of the information to criminally investigate or prosecute any alcohol or drug abuse patient.[facility] Center[facility] the event this information is protected by the Federal Confidentiality of Alcohol and Drug Abuse Patient Records regulations: The Federal rules restrict any use of the information to criminally investigate or prosecute any alcohol or drug abuse patient.[facility] Center[facility] the event this information is protected by the Federal Confidentiality of Alcohol and Drug Abuse Patient Records regulations: The Federal rules restrict any use of the information to criminally investigate or prosecute any alcohol or drug abuse patient.[facility] Center[facility] the event this information is protected by the Federal Confidentiality of Alcohol and Drug Abuse Patient Records regulations: The Federal rules restrict any use of the information to criminally investigate or prosecute any alcohol or drug abuse patient.[facility] Center[facility] the event this information is protected by the Federal Confidentiality of Alcohol and Drug Abuse Patient Records regulations: The Federal rules restrict any use of the information to criminally investigate or prosecute any alcohol or drug abuse patient.[facility] Center[facility] the event this information is protected by the Federal Confidentiality of Alcohol and Drug Abuse Patient Records regulations: The Federal rules restrict any use of the information to criminally investigate or prosecute any alcohol or drug abuse patient.[facility] Center[facility] the event this information is protected by the Federal Confidentiality of Alcohol and Drug Abuse Patient Records regulations: The Federal rules restrict any use of the information to criminally investigate or prosecute any alcohol or drug abuse patient.[facility] Center[facility] the event this information is protected by the Federal Confidentiality of Alcohol and Drug Abuse Patient Records regulations: The Federal rules restrict any use of the information to criminally investigate or prosecute any alcohol or drug abuse patient.[facility] Center[facility] the event this information is protected by the Federal Confidentiality of Alcohol and Drug Abuse Patient Records regulations: The Federal rules restrict any use of the information to criminally investigate or prosecute any alcohol or drug abuse patient.[facility] Center[facility] the event this information is protected by the Federal Confidentiality of Alcohol and Drug Abuse Patient Records regulations: The Federal rules restrict any use of the information to criminally investigate or prosecute any alcohol or drug abuse patient.[facility] Center[facility] the event this information is protected by the Federal Confidentiality of Alcohol and Drug Abuse Patient Records regulations: The Federal rules restrict any use of the information to criminally investigate or prosecute any alcohol or drug abuse patient.[facility] CenterIn the event this information is protected by the Federal Confidentiality of Alcohol and Drug Abuse Patient Records regulations: The Federal rules restrict any use of the information to criminally investigate or prosecute any alcohol or drug abuse patient.[facility] CenterIn the event this information is protected by the Federal Confidentiality of Alcohol and Drug Abuse Patient Records regulations: The Federal rules restrict any use of the information to criminally investigate or prosecute any alcohol or drug abuse patient.[facility] Center[facility] the event this information is protected by the Federal Confidentiality of Alcohol and Drug Abuse Patient Records regulations: The Federal rules restrict any use of the information to criminally investigate or prosecute any alcohol or drug abuse patient.[facility] CenterIn the event this information is protected by the Federal Confidentiality of Alcohol and Drug Abuse Patient Records regulations: The Federal rules restrict any use of the information to criminally investigate or prosecute any alcohol or drug abuse patient.[facility] CenterIn the event this information is protected by the Federal Confidentiality of Alcohol and Drug Abuse Patient Records regulations: The Federal rules restrict any use of the information to criminally investigate or prosecute any alcohol or drug abuse patient.[facility] CenterIn the event this information is protected by the Federal Confidentiality of Alcohol and Drug Abuse Patient Records regulations: The Federal rules restrict any use of the information to criminally investigate or prosecute any alcohol or drug abuse patient.[facility] CenterIn the event this information is protected by the Federal Confidentiality of Alcohol and Drug Abuse Patient Records regulations: The Federal rules restrict any use of the information to criminally investigate or prosecute any alcohol or drug abuse patient.[facility] CenterIn the event this information is protected by the Federal Confidentiality of Alcohol and Drug Abuse Patient Records regulations: The Federal rules restrict any use of the information to criminally investigate or prosecute any alcohol or drug abuse patient.[facility] CenterIn the event this information is protected by the Federal Confidentiality of Alcohol and Drug Abuse Patient Records regulations: The Federal rules restrict any use of the information to criminally investigate or prosecute any alcohol or drug abuse patient.[facility] CenterIn the event this information is protected by the Federal Confidentiality of Alcohol and Drug Abuse Patient Records regulations: The Federal rules restrict any use of the information to criminally investigate or prosecute any alcohol or drug abuse patient.[facility] CenterIn the event this information is protected by the Federal Confidentiality of Alcohol and Drug Abuse Patient Records regulations: The Federal rules restrict any use of the information to criminally investigate or prosecute any alcohol or drug abuse patient.[facility] Reason for Visit (unrecogniz ed [...] HIGH MDM 60-[place] [address] [place] [address] Referral ID Status Reason Start Date Expiration Date Visits Requested Visits Authorized [id number] Pending Review PCP Requested Referral 10/12/2021 10/12/2022 1 1 Reason Comments Follow Up Virtual Reason Comments Follow Up Reason Onset Date Comments Population Health Navigation Outreach 12/17/2021 Spouse of [facility] outreach pt Reason Comments F/U 6 Month Reason Onset Date Comments Refill Request 05/26/2022 Reason Comments Follow Up Reason Comments CPE (Medicare) Reason Comments Established Patient Follow Up Reason Onset Date Comments [facility] Navigation Outreach 03/31/2023 Robert [facility]DYE Outreach Reason Comments Chest Pain Sharp stabbing right sided chest pains starting 0300. Took 2 325mg asa when pain started. 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 Given 3 baby asa in office at 1122 and was given one nitro at 1129 with some improvement. Denies any n/v, slightly sob. Specialty Diagnoses / Procedures Referred By Manuel preston Referred To Contact Diagnoses Right sided abdominal pain Luis Estrella MD [address] [facility] [place] [address] [facility] [address] [place] [address] Referral ID Status Reason Start Date Expiration Date Visits Re quested Visits Authorized [id number] 1 1 Reason Comments ER/Urgent Referral Reason Comments Orders [facility] Care Teams (unrecognized sec tion and content) Coding Compliance Auditor Relationship Specialty [place] [address] [place] [address] PCP - General Internal Medicine 01/30/19 Janey Patricia DO [address] [facility] [place] [address] Primary Staff Physician Nephrology 03/26/21 Coding Compliance Auditor Relationship Specialty Start Date [place]ter[place]so [place] [id number] [place] [address] PCP - General Internal Medicine 01/30/19 Janey Patricia DO [address] [place] [address] Primary Staff Physician Nephrology 03/26/21 Coding Compliance Auditor Relationship Specialty Start Date End Date Kayla Monterroso MD [id number] [place] [address] PCP - General Internal Medicine 01/30/19 Janey Patricia DO [address] [place] [address] Primary Staff Physician Nephrology 03/26/21 Coding Compliance Auditor Relationship Specialty Start Date End Date Kayla Monterroso MD [id number] [place] [address] PCP - General Internal Medicine 01/30/19 Janey Patricia DO [address] [place] [address] Primary Staff Physician Nephrology 03/26/21 Coding Compliance Auditor Relationship Specialty Start Date End Date Kayla Monterroso MD [id number] [place] [address] PCP - General Internal Medicine 01/30/19 Janey Patricia DO [address] [place] [address] Primary Staff Physician Nephrology 03/26/21 Coding Compliance Auditor Relationship Specialty Start Date End Date Kayla Monterroso MD [id number] [place] [address] PCP - General Internal Medicine 01/30/19 Janey Patricia DO [address] [place] [address] Primary Staff Physician Nephrology 03/26/21 Coding Compliance Auditor Relationship Specialty Start Date End Date Kayla Monterroso MD [id number] [place] [address] PCP - General Internal Medicine 01/30/19 Janey Patricia, [address] [place] [address] Primary Staff Physician Nephrology 03/26/21 Coding Compliance Auditor Relationship Specialty Start Date End Date Kayla Monterroso MD [id number] [place] [address] PCP - General Internal Medicine 01/30/19 Janey Patricia DO [address] [place] [address] Primary Staff Physician Nephrology 03/26/21 Coding Compliance Auditor Relationship Specialty Start Date End Date Kayla Monterroso MD [id number] [place] [address] PCP - General Internal Medicine 01/30/19 Janey Patricia DO [address] [place] [address] Primary Staff Physician Nephrology 03/26/21 Coding Compliance Auditor Relationship Specialty Start Date End Date Kayla Monterroso MD [id number] [place] [address] PCP - General Internal Medicine 01/30/19 Janey Patricia DO [address] [place] [address] Primary Staff Physician Nephrology 03/26/21 Coding Compliance Auditor Relationship Specialty Start [place] [address] [place] [address] PCP - General Internal Medicine 01/30/19 Janey Patricia DO [address] [place] [address] Primary Staff Physician Nephrology 03/26/21 Coding Compliance Auditor Relationship Specialty Start Date End Date Kayla Monterroso MD [id number] [place] [address] PCP - General Internal Medicine 01/30/19 Janey Patricia DO [address] [place] [address] Primary Staff Physician Nephrology 03/26/21 Coding Compliance Auditor Relationship Specialty Start [place] [address] [place] [address] PCP - General Internal Medicine 01/30/19 Janey Patricia DO [address] [place] [address] Primary Staff Physician Nephrology 03/26/21 Coding Compliance Auditor Relationship Specialty Start Date End Date Kayla Monterroso MD [address] [place] [address] PCP - General Internal Medicine 01/30/19 Janey Patricia DO [address] [place] [address] Primary Staff Physician Nephrology 03/26/21 Coding Compliance Auditor Relationship Specialty Start [place] [address] [place] [address] PCP - General Internal Medicine 01/30/19 Janey Patricia DO [address] [place] [address] Primary Staff Physician Nephrology 03/26/21 Coding Compliance Auditor Relationship Specialty Start [place] [address] [place] [address] PCP - General Internal Medicine 01/30/19 Janey Patricia DO [address] [place] [address] Primary Staff Physician Nephrology 03/26/21 Coding Compliance Auditor Relationship Specialty Start Date [place] [id number] [place] [address] PCP - General Internal Medicine 01/30/19 Janey Patricia DO [address] [place] [address] Primary Staff Physician Nephrology 03/26/21 Coding Compliance Auditor Relationship Specialty Start [place] [address] [place] [address] PCP - General Internal Medicine 01/30/19 Janey Patricia DO [address] [place] [address] Primary Staff Physician Nephrology 03/26/21 Coding Compliance Auditor Relationship Specialty Start [place] [address] [place] [address] PCP - General Internal Medicine 01/30/19 Janey Patricia DO [address] [place] [address] Primary Staff Physician Nephrology 03/26/21 Coding Compliance Auditor Relationship Specialty Start [place] [address] [place] [address] PCP - General Internal Medicine 01/30/19 Janey Patricia DO [address] [place] [address] Primary Staff Physician Nephrology 03/26/21 Coding Compliance Auditor Relationship Specialty Start [place] [address] [place] [address] PCP - General Internal Medicine 01/30/19 Janey Patricia DO [address] [place] [address] Primary Staff Physician Nephrology 03/26/21 Coding Compliance Auditor Relationship Specialty Start [place] [address] [place] [address] PCP - General Internal Medicine 05/18/23 Coding Compliance Auditor Relationship Specialty Start [place] [address] [place] [address] PCP - General Internal Medicine 01/30/19 Janey Patricia DO [address] [place] [address] Primary Staff Physician Nephrology 03/26/21 Coding Compliance Auditor Relationship Specialty Start [place] [address] [place] [address] PCP - General Internal Medicine 01/30/19 Janey Patricia DO [address] [place] [address] Primary Staff Physician Nephrology 03/26/21 Ordered Prescriptions [...] to minimize the risk of orthostatic hypotension 2935 (Given - Provider: Pinola Resendiz, RN) 1329 (Given - Provider: Yesy [...] RAY) 0822 (Not Given - Provider: Denisse Thomspon, RAY - Reason: Patient/family refused) sodium chloride [...] BE BASED ON THE PRIMARY CLINICAL RECORDS. [facility] [employer] [facility]. provides no warranty or guarantee of the accuracy or completeness of information in this document.
[2023-06-01] MEDS: 0.9 % SODIUM CHLORIDE 1,000 ML 125 ML IV (23:59)
[2023-06-02] VITALS (28 sets, daily range): BP systolic 88–138; BP diastolic 54–76; PULSE 62–111; TEMP 36.7–37.1; O2SAT 88–93
[2023-06-02 05:33] LABS: Basophils Percent Auto 0.3 % (0.2-2.0); Eosinophils Absolute Auto 0.1 10^3/uL (0.0-0.7); Eosinophils Percent Auto 0.5 % (0.9-7.0); Hemoglobin 7.1 g/dL (12.0-16.0); Immature Granulocytes Abs Auto 0.09 10^3/uL (0.00-0.03); Immature Granulocytes Pct Auto 0.8 % (0.0-0.5); Lymphocytes Absolute Auto 1.1 10^3/uL (1.2-3.8); Mean Corpuscular HGB Conc 31.3 g/dL (29.9-35.2); Mean Corpuscular Volume 95.8 fL (81.0-99.0); Mean Platelet Volume 9.9 fL (9.5-13.5); Monocytes Absolute Auto 1.1 10^3/uL (0.3-0.8); Monocytes Percent Auto 9.6 % (1.7-12.0); Neutrophils Absolute Auto 9.4 10^3/uL (1.4-6.5); Neutrophils Percent Auto 79.8 % (43.0-75.0); Platelet Count 365 10^3/uL (150-450); Red Blood Count 2.37 10^6/uL (4.20-5.40); Red Cell Distribution Width 14.4 % (11.0-15.0); White Blood Count 11.7 10^3/uL (4.0-11.0)
[2023-06-02 05:55] LABS: Alanine Aminotransferase 45 U/L (14-59); Albumin Globulin Ratio 0.4; Albumin Level 1.5 g/dL (3.4-5.0); Alkaline Phosphatase 132 U/L (46-116); Anion Gap 14.2; Aspartate Amino Transferase 46 U/L (15-37); BUN Creatinine Ratio 21.9; Bilirubin Total 0.3 mg/dL (0.2-1.0); Calcium 7.8 mg/dL (8.5-10.1); Carbon Dioxide 24.5 mmol/L (21.0-32.0); Chloride 106 mmol/L (98-107); Estimated GFR (African America 32 (>=60); Estimated GFR (Non-African Ame 26 (>=60); Globulin 3.8 g/dL; Glucose 84 mg/dL (74-106); Potassium 3.7 mmol/L (3.5-5.1); Sodium 141 mmol/L (136-145); Total Protein 5.3 g/dL (6.4-8.2)
[2023-06-02 06:13] LABS: Hematocrit 22.7 % (36.0-48.0)
--- NOTE | 2023-06-02 06:49 | XR_ITS ---
The [address] [address] Patient Name: NEELAM VIRAMONTES MRN: [id number] date: 1950 Sex: F Assigned Patient Location: MS Current Patient Location: [place] Accession/Order Number: [id number] Exam Date: 06/02/2023 07:55 Report Date: 06/02/2023 08:13 At the request of: ALIYA CLAYTON Procedure: XR chest 2V EXAMINATION: XR chest 2V HISTORY: dyspnea, cough COMPARISON: XR chest 05/26/2023 FINDINGS: LUNGS: Opacification of lower left lung base obscuring the heart and diaphragm margins. Right lung is clear. VASCULATURE: No increased pulmonary vasculature. PLEURA: Left pleural effusion. CARDIAC: Cardiomegaly. MEDIASTINUM: No visible mass or adenopathy. BONES: No fracture or visible bone lesion. OTHER: Negative. XR/XR chest 2V IMPRESSION: 1. Suspect moderate size left pleural effusion with moderate basilar atelectasis or infiltrates. Findings are new compared to 05/18/2023. Electronically authenticated by: LAVERNE KENYON Date: 06/02/2023 08:13
--- NOTE | 2023-06-02 07:03 | CA_ITS ---
Patient Name: NEELAM VIRAMONTES MR#: [id number] : 1950 Exam Date: 06/02/2023 Ordering Doctor: DR ALIYA CLAYTON . ECHOCARDIOGRAM REPORT PROCEDURE: CA ECHO LIMITED INDICATIONS: pericardial effusion seen on CT, elevated Pro-BNP COMPARISON: None. DESCRIPTION: Limited ECHOCARDIOGRAM Real-time transthoracic echocardiography with 2D and M-mode performed. QUALITY: Technical quality was good. Limited echocardiogram per physician. 61 , 132#, BSA 1.58 m2, BP 98/58 LEFT VENTRICLE: Normal chamber size. Borderline left ventricular hypertrophy. Normal systolic function. LV EF: Normal left ventricular ejection fraction, (>55%). DIASTOLIC: ATRIAL SEPTUM: LEFT ATRIUM: Moderate dilatation. RIGHT ATRIUM: Moderate dilatation. RIGHT VENTRICLE: Normal chamber size. Normal systolic function. TRICUSPID VALVE: Normal mobility and thickness. MITRAL VALVE: Normal mobility and thickness. Mild mitral annular calcification. AORTIC VALVE: Normal trileaflet appearance. No visible sclerosis. Normal leaflet mobility. AORTIC ROOT: Normal diameter and appearance. PULMONIC VALVE: Normal thickness and mobility. PERICARDIUM: Small pericardial effusion. IVC: IVC is normal in size, does not fully collapse. PLEURA: CONCLUSION: 1. Normal ventricular systolic function. LVEF is 60-65%. 2. Moderately dilated atria. 3. Small pericardial effusion. 4. The patient appears to be in atrial fibrillation. Adult Echocardiography Procedure Report Left Ventricle LVEDD (3.7 - 5.6 cm): 3.95 cm LVESD (2.2 - 4.0 cm): 3.17 cm LVIVS thickness (0.6 - 1.2 cm): 1.08 cm LVPW thickness (0.5 - 1.0 cm): 1.03 cm LVOT Diameter 2.11 cm Left Atrium LA Volume Index (2D A2C): 37.53 ml/m2 Left Atrium Systolic Dimension: 4.71 cm Mitral Valve Right Ventricle Aorta AO Root Diam: 2.88 cm Aortic Valve Tricuspid Valve Pulmonic Valve Right Atrium Right Atrium Systolic Pressure: 34.59 ml, 34.59 ml Dictated by: Mariusz Peterson M.D. on 06/02/2023 at 16:26 Approved by: Mariusz Peterson M.D. on 06/02/2023 at 16:30
[2023-06-02 08:27] LABS: Troponin I High Sensitivity 9.8 pg/mL (4.0-51.3)
[2023-06-02] MEDS: DOXAZOSIN MESYLATE 2 MG TABLET PO ×2 (08:35→21:13)
[2023-06-02] MEDS: CARVEDILOL 6.25 MG TABLET PO ×2 (08:35→23:43)
[2023-06-02] MEDS: ENSURE HP 237 ML LIQUID PO (08:35)
[2023-06-02] MEDS: PROSTAT 15 GM PROTEIN/100 CAL 30 ML LIQUID PACKET PO ×2 (08:35→21:13)
[2023-06-02] MEDS: AMIODARONE HCL 200 MG TABLET PO (08:35)
[2023-06-02] MEDS: LEVOFLOXACIN IN DEXTROSE 5 % 750 MG/150 ML IV.SOLN 100 MG IV (08:36)
[2023-06-02] MEDS: PANTOPRAZOLE SODIUM 40 MG VIAL IV (08:36)
[2023-06-02 08:38] LABS: Magnesium 1.8 mg/dL (1.8-2.4); Thyroid Stimulating Hormone 1.917 uIU/mL (0.358-3.740)
--- NOTE | 2023-06-02 09:13 | P.HP_ITS ---
HPI H&P: HPI History of Present Illness Chief complaint: Generalized Weakness, UTI, Nausea/Vomiting Narrative: Patient presented to the emergency room increasing nausea vomiting, found to have acute UTI, significant dehydration with acute renal failure, baseline creatinine of 1.4 progressed to 2.12 which is 151.4% above baseline., Significant leukocytosis as well. Some peripheral edema, she has a recent inpatient admission for A-fib with rapid ventricular response. Seeing cardiolo gy for treatment for her atrial fibrillation as an outpatient When I saw patient up on the medical surgical floor she does have some mild dyspnea persisting cough. Discussed results of the anemia and need for blood transfusion. Opioid HPI Opioid Management Most Recent Opioid Data: Last Pain Scale 0 06/02/23 06:03 Last Pain Assessment 06/02/23 09:54 Last ORT Total Score 0 06/01/23 22:34 Last ORT Risk Category Low Risk 06/01/23 22:34 Review of Systems ROS Status of ROS 10 or more systems reviewed and unremark able except as noted in history and below [facility] Medical History (Updated 06/02/23 @ 10:20 by Harinder Puentes MD) CAD (coronary artery disease), [place] coronary artery ?I25.10 - Atherosclerotic heart disease of [place] coronary artery without angina pectoris (ICD-10) GERD (gastroesophageal reflux disease) ?K21.9 - Gastro-esophageal reflux disease without esophagitis (ICD-10) Hypertension ?I10 - Essential (primary) hypertension (ICD-10) 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 - Unspecified atherosclerosis of [place] arteries of extremities, unspecified extremity (ICD-10) History of heart attack ?I25.2 - Old myocardial infarction (ICD-10) Abnormal colonoscopy ?R93.3 - Abnormal findings on diagnostic imaging of other parts of digestive tract (ICD-10) Colon polyp ?K63.5 - Polyp of colon (ICD-10) Surgical History H/O tubal ligation ?Z98.51 - Tubal ligation status (ICD-10) Hx of tonsillectomy ?Z90.89 - Acquired absence of other organs (ICD-10) Social History Within the past year, how often did you have a drink containing alcohol: never Score interpretation: A score less than 3 is consistent with normal alcohol consumption. Smoking status: Former smoker Non-prescribed substance use: denies use Previous occupational history: retired Highest level of school completed/degree received: 11th grade Do you think of yourself as: straight/heterosexual Gender Identity: female Meds Home Medications and Allergies Home Medications ?Medication ?Instructions ?Recorded ?Confirmed ?Type doxazosin 2 mg tablet 2 mg PO BID 04/26/23 06/01/23 History hydralazine 50 mg tablet 50 mg PO Q8H 04/26/23 06/01/23 History rosuvastatin 20 mg tablet 20 mg PO .QHS 04/26/23 06/01/23 History pantoprazole 40 mg tablet,delayed 40 mg PO DAILY 05/20/23 06/01/23 History release amiodarone 200 mg tablet (Pacerone) 200 mg PO DAILY 30 days #30 tabs 05/22/23 06/01/23 Rx apixaban 5 mg tablet (Eliquis) 2.5 mg (1/2 x 5 mg) PO BID 30 days 05/22/23 06/01/23 Rx #30 tabs carvedilol 6.25 mg tablet 6.25 mg PO Q12H 30 days #60 tabs 05/22/23 06/01/23 Rx naproxen 250 mg tablet 250 mg PO Q12H 05/26/23 06/01/23 History hydrocodone 5 mg-acetaminophen 325 1 tab PO BID PRN Pain Scale 7-10 2 05/27/23 06/01/23 Rx mg tablet days #4 tabs furosemide 20 mg tablet 20 mg PO .once daily 06/01/23 06/01/23 History Allergies Allergy/AdvReac Type Severity Reaction Status Date / Time No Known Drug Allergies Allergy Verified 06/01/23 19:31 Exam Constitutional Vital Signs, click to edit/add: Last Vital Signs Temp 98.4 F 06/02/23 08:30 Pulse 105 H 06/02/23 08:30 Resp 18 06/02/23 08:30 BP 109/73 06/02/23 08:30 Pulse Ox 91 L 06/02/23 08:30 O2 Del Method Room Air 06/02/23 08:30 Documenting provider has reviewed patient's vital signs: yes Common normals: apparent distress (Persisting cough with mild dyspnea) Respiratory Common normals: abnormal respiratory effort (Mild dyspnea) Effort & inspection: respiratory distress Auscultation: rales and rhonchi Cardio Common normals: irregular rhythm Rate: tachycardic GI Common normals: Normal to inspection, nondistended, normoactive bowel sounds present Extremity Common normals: abnormal to inspection (2+ edema bilateral lower extremities) and clubbing, cyanosis or edema Results Labs Labs: Short CBC 06/01/23 06/02/23 Range/Units 19:39 04:14 WBC 16.4 H 11.7 H (4.0-11.0) 10^3/uL Hgb 8.2 L 7.1 L (12.0-16.0) g/dL Hct 24.9 L 22.7 L* (36.0-48.0) % Plt Count 445 365 (150-450) 10^3/uL BMP 06/01/23 06/02/23 19:39 04:14 Sodium 139 141 Potassium 3.6 3.7 Chloride 103 106 Carbon Dioxide 23.8 24.5 BUN 47.0 H 41.0 H Creatinine 2.12 H 1.87 H Glucose 111 H 84 Calcium 8.5 7.8 L Liver Function 06/01/23 06/02/23 Range/Units 19:39 04:14 Total Bilirubin 0.7 0.3 (0.2-1.0) mg/dL AST 78 H 46 H (15-37) U/L ALT 62 H 45 (14-59) U/L Alkaline Phosphatase 170 H 132 H (46-116) U/L Albumin 2.0 L 1.5 L (3.4-5.0) g/dL Urine 06/01/23 Range/Units 20:55 Urine Color Lt. yellow (YELLOW) Urine Clarity Clear (CLEAR) Urine pH 5.5 (5.0-9.0) Ur Specific [place] 1.020 (1.005-1.025) Urine Protein 30 A (NEG/TRACE) mg/dL Urine Glucose (UA) Negative (NEGATIVE) mg/dL Assessment and Plan Assessment and Plan (1) Acute UTI: (2) Leukocytosis: (3) Weakness generalized: Plan Tachycardia, uncontrolled hypertension, leukocytosis, elevated liver function test, elevated BNP secondary to atrial fibrillation with rapid ventricular response secondary to acute UTI and dehydration-Bumex drip for diuresis. Repeat echocardiogram, CT scan of abdomen suggesting pericardial effusion. If significant effusion patient may need transferred. Acute anemia-check occult blood, transfuse [address] patient on Protonix for gastric protection Atrial fibrillation with rapid ventricular response-see above-hold anticoagulant secondary to the acute anemia Dyspnea on exertion-seems like it is worse than it was on admission-her BNP is higher, checking on that echocardiogram for pericardial effusion and possible need for transfer, Bumex drip ordered, check respiratory panel. Acute renal failure with baseline creatinine of 1.4-progressed to 2.12 which is 151.4% above baseline. Need for diuresis though also. May be elevated secondary to the acute GI blood loss anemia. Bumex drip should be gentler with the diuresis then bolus dosing Generalized weakness secondary to all of the above-transfusion likely to help, controlling infection check on blood cultures Severe protein calorie malnutrition-diet supplement Left pleural effusion-see above, related to the acute combined congestive heart failure Complex cyst of right ovary-workup as an outpatient Elevated liver function test-likely secondary to passive congestion secondary to the acute combined congestive heart failure, possibly related to sepsis as well Inpatient criteria: With failed outpatient treatment of her acute combined con gestive heart failure with oral diuretics, complicated by acute UTI, possible early sepsis with the acute renal failure, elevated liver function and possible pericardial effusion, patient inpatient status. Medically necessary treatment will span more than 2 midnights
--- NOTE | 2023-06-02 09:22 | CM.NOTE ---
Rounds made with Dr. Puentes, discussed with pt about more testing today (limited echo) d/t elevated BNP and IV diuretic. PT and OT will also evaluate pt today for discharge planning.
[2023-06-02 09:28] LABS: Adenovirus NOT DETECTED (NOT DETECTE); Bordetella parapertussis NOT DETECTED (NOT DETECTE); Coronavirus 229E NOT DETECTED (NOT DETECTE); Coronavirus HKU1 NOT DETECTED (NOT DETECTE); Coronavirus NL63 NOT DETECTED (NOT DETECTE); Coronavirus OC43 NOT DETECTED (NOT DETECTE); Human Metapneumovirus NOT DETECTED (NOT DETECTE); Human Rhinovirus/Enterovirus NOT DETECTED (NOT DETECTE); Influenza A NOT DETECTED (NOT DETECTE); Influenza B NOT DETECTED (NOT DETECTE); Mycoplasma pneumoniae NOT DETECTED (NOT DETECTE); Parainfluenza Virus 1 NOT DETECTED (NOT DETECTE); Parainfluenza Virus 2 NOT DETECTED (NOT DETECTE); Parainfluenza Virus 3 NOT DETECTED (NOT DETECTE); Parainfluenza Virus 4 NOT DETECTED (NOT DETECTE); Respiratory Syncytial Virus NOT DETECTED (NOT DETECTE); SARS-CoV-2 NOT DETECTED (NOT DETECTE)
[2023-06-02] MEDS: BUMETANIDE 10 MG in 0.9 % SODIUM CHLORIDE 160 ML 20 MG IV (11:21)
--- NOTE | 2023-06-02 13:53 | SWNOTE1 ---
SW met with pt to discuss dc needs. Pt was just here a few days ago and returned as she was feeling short of breath. Pt was discharged with [facility]. She voiced they did come in and do an assessment and developed a schedule, it is hanging on her fridge. Pt and SW spoke about discharge plans. SW presented the idea of pt going to long term facility for a short term rehab stay. At this time pt voices she does not want to do that and feels she can return home and continue home health. SW did ask pt if she has a walker, at this time pt does not. She voiced she wants to be able to not use anything and does not want a walker at this time. SW advised pt she may be a little weaker than usual and it may be beneficial for SW to see if we can get a walker through her insurance for her own safety. Pt again expressed she is not interested. SW did advise pt that if she gets home and does want one that [facility] many times has them and so does [employer], [employer], and other pharmacies. She voiced understanding. At this time pt denies any other dc needs. SW to follow as needed. Important Message from Medicare reviewed and discussed with patient. Pt. verbalized understanding and signed the form. Original given to patient and copy placed in patient?s chart.
--- NOTE | 2023-06-02 15:42 | SWNOTE1 ---
SW did receive call from physical therapy and had concerns over pt's significant other in room who was showing controlling behaviors over pt. Pt's significant other did request to speak with SW. TANNER spoke with pt and pt's significant other, Benny. TANNER and Bod did speak about discharge planning and that SW did speak with pt about going to rehab for a short term rehab stay. Benny did voice several rules in regards to medicare and the 100 days. He voiced medicare pays days 1-20 100%. SW did let him know that pt has [employer], which is a medicare HMO. SW let him know that pt would be a precert and her insurance would either approve or deny. If approved it would be for a certain number of days and they would continue to send updates until she is at her baseline. At this time unsure of plan for discharge. Benny did voice he just wants her safe. He did speak about medicaid eventually. He voiced he does have a background in medicaid and insurance. Benny did voice some concerns about nursing, therapy, and he does not want us to give information to her family. TANNER did express that pt will have to tell us if we can give information to family/pt's sister. Pt was falling asleep during conversation. At this time SW to stop back in to re-assess tomorrow and see what the discharge plan is. TANNER did go back in room after Benny left and did ask pt if she was able to make decisions on her own at home. She stated yes. TANNER did ask if nursing was able to provide medical updates to her sister and she voiced we could. Pt has 4 children, but does not speak to them very much. Her ex, their father, several years ago. She voiced her own sister and her had a falling out at a family function so they do not speak. TANNER again asked pt if she voices her opinions and feels safe at home. She voiced she does feel safe.
[2023-06-02 17:23] LABS: Basophils Percent Auto 0.3 % (0.2-2.0); Eosinophils Absolute Auto 0.3 10^3/uL (0.0-0.7); Eosinophils Percent Auto 2.9 % (0.9-7.0); Hematocrit 28.8 % (36.0-48.0); Hemoglobin 9.2 g/dL (12.0-16.0); Immature Granulocytes Abs Auto 0.08 10^3/uL (0.00-0.03); Immature Granulocytes Pct Auto 0.7 % (0.0-0.5); Mean Corpuscular HGB Conc 31.9 g/dL (29.9-35.2); Mean Corpuscular Hemoglobin 29.8 pg (26.7-34.0); Mean Corpuscular Volume 93.2 fL (81.0-99.0); Mean Platelet Volume 10.1 fL (9.5-13.5); Monocytes Absolute Auto 1.1 10^3/uL (0.3-0.8); Monocytes Percent Auto 9.5 % (1.7-12.0); Neutrophils Absolute Auto 8.6 10^3/uL (1.4-6.5); Neutrophils Percent Auto 77.6 % (43.0-75.0); Platelet Count 367 10^3/uL (150-450); Red Blood Count 3.09 10^6/uL (4.20-5.40); Red Cell Distribution Width 15.6 % (11.0-15.0); White Blood Count 11.1 10^3/uL (4.0-11.0)
[2023-06-02] MEDS: CEFTRIAXONE 1,000 MG in 0.9 % SODIUM CHLORIDE 50 ML 100 MG IV (21:15)
[2023-06-02] MEDS: NON-FORMULARY 1 EACH (Rosuvastatin 20 mg tablet) 20 EACH PO (21:16)
[2023-06-02] MEDS: HYDRALAZINE HCL 50 MG TABLET PO (23:16)
[2023-06-02] MEDS: ACETAMINOPHEN 500 MG TABLET 1000 MG PO (23:19)
[2023-06-03] VITALS (24 sets, daily range): BP systolic 88–115; BP diastolic 56–69; PULSE 63–84; TEMP 36.4–36.8; O2SAT 91–97
[2023-06-03] MEDS: HYDRALAZINE HCL 50 MG TABLET PO (06:06)
[2023-06-03 06:09] LABS: Basophils Percent Auto 0.4 % (0.2-2.0); Eosinophils Absolute Auto 0.5 10^3/uL (0.0-0.7); Eosinophils Percent Auto 4.5 % (0.9-7.0); Hemoglobin 8.7 g/dL (12.0-16.0); Immature Granulocytes Abs Auto 0.08 10^3/uL (0.00-0.03); Immature Granulocytes Pct Auto 0.8 % (0.0-0.5); Lymphocytes Absolute Auto 1.2 10^3/uL (1.2-3.8); Lymphocytes Percent Auto 11.5 % (20.5-60.0); Mean Corpuscular HGB Conc 32.2 g/dL (29.9-35.2); Mean Corpuscular Hemoglobin 30.1 pg (26.7-34.0); Mean Corpuscular Volume 93.4 fL (81.0-99.0); Mean Platelet Volume 10.4 fL (9.5-13.5); Monocytes Absolute Auto 0.9 10^3/uL (0.3-0.8); Monocytes Percent Auto 9.1 % (1.7-12.0); Neutrophils Absolute Auto 7.4 10^3/uL (1.4-6.5); Neutrophils Percent Auto 73.7 % (43.0-75.0); Platelet Count 382 10^3/uL (150-450); Red Blood Count 2.89 10^6/uL (4.20-5.40); Red Cell Distribution Width 15.5 % (11.0-15.0); White Blood Count 10.1 10^3/uL (4.0-11.0)
[2023-06-03 06:32] LABS: Alanine Aminotransferase 74 U/L (14-59); Albumin Globulin Ratio 0.4; Albumin Level 1.6 g/dL (3.4-5.0); Alkaline Phosphatase 131 U/L (46-116); Anion Gap 12.8; Aspartate Amino Transferase 113 U/L (15-37); BUN Creatinine Ratio 20.6; Bilirubin Total 0.6 mg/dL (0.2-1.0); Calcium 8.3 mg/dL (8.5-10.1); Carbon Dioxide 27.7 mmol/L (21.0-32.0); Chloride 104 mmol/L (98-107); Estimated GFR (African America 27 (>=60); Estimated GFR (Non-African Ame 23 (>=60); Globulin 4.1 g/dL; Glucose 93 mg/dL (74-106); Potassium 3.5 mmol/L (3.5-5.1); Sodium 141 mmol/L (136-145); Total Protein 5.7 g/dL (6.4-8.2)
[2023-06-03] MEDS: PROSTAT 15 GM PROTEIN/100 CAL 30 ML LIQUID PACKET PO ×2 (08:39→21:41)
--- NOTE | 2023-06-03 08:43 | CM.NOTE ---
Rounds made with Dr. Puentes. Labs reviewed with Monica per Dr. Puentes. No plan for discharge today.
[2023-06-03] MEDS: DOXAZOSIN MESYLATE 2 MG TABLET PO ×2 (08:47→21:41)
[2023-06-03] MEDS: AMIODARONE HCL 200 MG TABLET PO (08:47)
[2023-06-03] MEDS: PANTOPRAZOLE SODIUM 40 MG VIAL IV (08:52)
--- NOTE | 2023-06-03 08:57 | ECG_ITS ---
The [facility] Test Date: 2023-06-03 Pat Name: NEELAM VIRAMONTES Department: Room: Gender: Female [employer]: : 1950 Requested By: Order Number: [id number] Reading MD: ALIYA CLAYTON Measurements Intervals [place] Rate: 69 P: 67 IA: 122 QRS: 19 QRSD: 96 T: 22 QT: 416 QTc: 448 Interpretive Statements SINUS RHYTHM NONSPECIFIC T-WAVE ABNORMALITY Compared to ECG 06/01/2023 19:35:46 T-wave abnormality now present Atrial fibrillation no longer present Electronically Signed On 06-04-2023 8:25:34 EDT by ALIYA CLAYTON
--- NOTE | 2023-06-03 09:00 | P.PN_ITS ---
Progress Note: Subjective Subjective Interval history: Pt with worsening weakness this morning. Discussed options for home versus rehab. Patient willing to look into rehab. She does state her breathing overall feels somewhat better than the previous day. Exam Constitutional Vital Signs, click to edit/add: Last Vital Signs Temp 97.8 F 06/03/23 08:42 Pulse 71 06/03/23 08:47 Resp 25 H 06/03/23 08:29 BP 109/69 06/03/23 08:47 Pulse Ox 95 06/03/23 08:29 O2 Del Method Room Air 06/03/23 08:29 Documenting provider has reviewed patient's vital signs: yes Common normals: apparent distress (Persisting cough with mild dyspnea) Respiratory Common normals: abnormal respiratory effort (Mild dyspnea) Effort & inspection: respiratory distress Auscultation: rales and rhonchi Cardio Common normals: irregular rhythm Rate: tachycardic GI Common normals: Normal to inspection, nondistended, normoactive bowel sounds present Extremity Common normals: abnormal to inspection (1+ edema bilateral lower extremities - better) and clubbing, cyanosis or edema Progress Note: Objective Labs Labs: Short CBC 06/02/23 06/03/23 Range/Units 17:00 05:28 WBC 11.1 H 10.1 (4.0-11.0) 10^3/uL Hgb 9.2 L 8.7 L (12.0-16.0) g/dL Hct 28.8 L 27.0 L (36.0-48.0) % Plt Count 367 382 (150-450) 10^3/uL BMP 06/03/23 05:28 Sodium 141 Potassium 3.5 Chloride 104 Carbon Dioxide 27.7 BUN 44.0 H Creatinine 2.14 H Glucose 93 Calcium 8.3 L Liver Function 06/03/23 Range/Units 05:28 Total Bilirubin 0.6 (0.2-1.0) mg/dL AST 113 H (15-37) U/L ALT 74 H (14-59) U/L Alkaline Phosphatase 131 H (46-116) U/L Albumin 1.6 L (3.4-5.0) g/dL Progress Note: A&P Assessment and Plan (1) Acute UTI: (2) Leukocytosis: (3) Weakness generalized: Plan Tachycardia, uncontrolled hypertension, leukocytosis, elevated liver function test, elevated BNP secondary to atrial fibrillation with rapid ventricular response secondary to acute UTI and dehydration-Bumex drip completed yesterday with good diuresis. 3.5 L out. Creatinine elevated today so we will hold off on further Bumex and change patient to oral agents. Cultures pending for acute UTI, continue with current antibiotics white blood cell count is improved, persisting left shift consistent with bacterial process Acute anemia-check occult blood, transfuse [address] patient on Protonix for gastric protection Atrial fibrillation with rapid ventricular response-see above-hold anticoagulant secondary to the acute anemia Dyspnea on exertion-seems like it is worse than it was on admission-her BNP is higher, checking on that echocardiogram for pericardial effusion and possible need for transfer, Bumex drip ordered, check respiratory panel. Acute renal failure with baseline creatinine of 1.4-progressed to 2.12 which is 151.4% above baseline. Creatinine back elevated today likely secondary to the diuresis. Continue to follow. Generalized weakness secondary to all of the above-transfusion likely to help, controlling infection check on blood cultures Severe protein calorie malnutrition-diet supplement Left pleural effusion-see above, related to the acute combined congestive heart failure-consider following repeat chest x-ray Complex cyst of right ovary-workup as an outpatient Elevated liver function test-likely secondary to passive congestion secondary to the acute combined congestive heart failure, possibly related to sepsis as well- improved Inpatient criteria: With failed outpatient treatment of her acute combined congestive heart failure with oral diuretics, complicated by acute UTI, possible early sepsis with the acute renal failure, elevated liver function and possible pericardial effusion, patient inpatient status. Medically necessary treatment will span more than 2 midnights-patient likely needs at least 2-3 more days of medically necessary treatment ?
[2023-06-03] MEDS: CARVEDILOL 6.25 MG TABLET PO ×2 (09:47→21:41)
[2023-06-03] MEDS: SPIRONOLACTONE 25 MG TABLET 12.5 MG PO (09:53)
[2023-06-03] MEDS: ACETAMINOPHEN 500 MG TABLET 1000 MG PO ×2 (09:53→21:45)
[2023-06-03] MEDS: FUROSEMIDE 40 MG TABLET PO (09:53)
--- NOTE | 2023-06-03 11:22 | PT.DAILY ---
Physical Therapy Daily Note PT Daily Note/Assess Start: 06/03/23 11:13 Freq: Status: Active Protocol: Document 06/03/23 10:50 CRISTIANO (Rec: 06/03/23 11:22 CRISTIANO [id number]) Physical Therapy Daily Note/Assessment Time In/Time Out Time In 10:50 Time Out 11:10 Subjective Subjective Patient up in chair and agrees to therapy. Both patient and SO were very pleasant. SO left room during RX. Therapeutic Activity Time Therapeutic Activity Minutes (minutes) 20 Therapeutic Activity Units 1 Therapeutic Activity Treatment Therapeutic Activity Comments Sit to stand from chair at RW min assist with verbal instruction to assist with R shoulder pain. Gait 25' with RW CGA, very slow, weak and shaky but does not have LOB. Sit to stand at commode min assist. Patient able to complete daphney-care with supervision. Gait with RW 25' back to chair with CGA. Patient does have LOB at end of ambulation due to fatigue. Min assist from therapist was required to correct and then patient was able to safely sit in chair. Total Physical Therapy Time Total Therapy Minutes 20 Total Physical Therapy Units 1 Summary Daily Note Summary Patient fatigues quickly with gait, max distance 20-25' at this this time. Encouraged patient to use RW and did do better with this but still with significant LE weakness and R shoulder pain that are limiting factors. Had lengthy conversation with patient on HH PT vs Skilled Rehab, and that at this time PT would recommend skilled rehab to regain functional strength. Patient agrees with this.
--- NOTE | 2023-06-03 11:28 | SWNOTE1 ---
SW stopped back in to speak with pt and her signifcant other was not in room. She is agreeable to go to rehab, but wants Benny to be in room to decided where. TANNER did ask again if they lived in [place] and she voiced yes and more than likely they would want to go somewhere there. TANNER voiced understanding and to check facilities in [place].
--- NOTE | 2023-06-03 12:09 | SWNOTE1 ---
TANNER spoke to Benny and pt in room. TANNER provided them with list from medicare.gov for facilites for rehab. Benny voiced first option is [facility] in [place]. Second is [facility], and 3rd is [facility]. He did ask about [facility] in [place] but they do not have contract with [facility]. TANNER called [facility] and left voicemail. TANNER emailed Adelita and Zoila at [facility], Adelita emailed back and they do not have a contract. TANNER reached out to Alessandra at [facility] and they have no beds until next week. TANNER reached out to Estefany at [facility] and left message, sent an email as well. Waiting to hear back.
--- NOTE | 2023-06-03 14:09 | SWNOTE1 ---
TANNER went back in to speak with pt and significant other about facilities. TANNER voiced [facility] does have openings, but it would be a semi-private room for now until Tuesday or Tuesday. He is not sure about this and he wants to know if a RN is a facility 20/09, SW is not sure on this but will check and he wants to know if she will be first to move to private room. TANNER called and spoke with Estefany at [facility] and they have at least a RN for one shift. TANNER let Benny know this and he is not sure. They would like SW to check [facility].
[2023-06-03] MEDS: HYDROCODONE/ACET 5-325 MG TABLET 1 TAB PO (14:50)
[2023-06-03] MEDS: ENSURE CLEAR 237 ML LIQUID PO (14:50)
--- NOTE | 2023-06-03 15:04 | SWNOTE1 ---
SW spoke to Leida at [facility] and they do take devoted and have a RN usually on shift 12 hours per day. SW spoke to pt and Benny and at this time they would like to move forward with this and try [facility]. Benny did ask about discharge and SW let him know it will depend on if pt is medically stable and on insurance. They voiced understanding. Benny requested SW call once we know if they do start precert.
--- NOTE | 2023-06-03 16:28 | SWNOTE1 ---
TANNER received call back from Leida at [facility] and they do not take devoted, she spoke to her cyber security administrator and they have an old contract and have not updated it. TANNER spoke to pt and Benny. They are not sure what to do. Benny would like TANNER to look in to [facility]. TANNER called [facility] and they do take devoted but they do not have beds. There are 2 other facilities in [place], one [facility], they did not answer TANNER left message. The other one is [facility]. She was not sure if they take devoted but will have to send face sheet to central intake. TANNER emailed over face sheet. At this point TANNER has not been able to start precert and if pt still needs skilled come Tuesday TANNER will have to find a facility. TANNER did make pt and Benny aware there are limited options.
[2023-06-03] MEDS: DICLOFENAC SODIUM 100 GM TUBE TOPICAL (19:59)
[2023-06-03] MEDS: CEFTRIAXONE 1,000 MG in 0.9 % SODIUM CHLORIDE 50 ML 100 MG IV (21:41)
[2023-06-03] MEDS: NON-FORMULARY 1 EACH (Rosuvastatin 20 mg tablet) 20 EACH PO (21:42)
[2023-06-03] MEDS: 0.9 % SODIUM CHLORIDE 250 ML 10 ML IV (21:43)
[2023-06-04] VITALS (23 sets, daily range): BP systolic 100–121; BP diastolic 60–74; PULSE 60–72; TEMP 36.4–36.8; O2SAT 92–96
[2023-06-04 04:48] LABS: Basophils Absolute Auto 0.1 10^3/uL (0.0-0.1); Basophils Percent Auto 0.6 % (0.2-2.0); Eosinophils Absolute Auto 0.4 10^3/uL (0.0-0.7); Eosinophils Percent Auto 4.7 % (0.9-7.0); Hematocrit 27.6 % (36.0-48.0); Hemoglobin 8.9 g/dL (12.0-16.0); Immature Granulocytes Abs Auto 0.06 10^3/uL (0.00-0.03); Immature Granulocytes Pct Auto 0.7 % (0.0-0.5); Lymphocytes Absolute Auto 1.5 10^3/uL (1.2-3.8); Lymphocytes Percent Auto 16.1 % (20.5-60.0); Mean Corpuscular HGB Conc 32.2 g/dL (29.9-35.2); Mean Corpuscular Hemoglobin 29.9 pg (26.7-34.0); Mean Corpuscular Volume 92.6 fL (81.0-99.0); Mean Platelet Volume 9.9 fL (9.5-13.5); Monocytes Absolute Auto 0.7 10^3/uL (0.3-0.8); Monocytes Percent Auto 7.2 % (1.7-12.0); Neutrophils Absolute Auto 6.4 10^3/uL (1.4-6.5); Neutrophils Percent Auto 70.7 % (43.0-75.0); Platelet Count 386 10^3/uL (150-450); Red Blood Count 2.98 10^6/uL (4.20-5.40); Red Cell Distribution Width 14.7 % (11.0-15.0); White Blood Count 9.1 10^3/uL (4.0-11.0)
[2023-06-04 05:17] LABS: Alanine Aminotransferase 68 U/L (14-59); Albumin Globulin Ratio 0.4; Albumin Level 1.7 g/dL (3.4-5.0); Alkaline Phosphatase 128 U/L (46-116); Anion Gap 12.5; Aspartate Amino Transferase 70 U/L (15-37); Bilirubin Total 0.3 mg/dL (0.2-1.0); Calcium 8.3 mg/dL (8.5-10.1); Carbon Dioxide 29.6 mmol/L (21.0-32.0); Chloride 102 mmol/L (98-107); Estimated GFR (African America 23 (>=60); Estimated GFR (Non-African Ame 19 (>=60); Globulin 4.1 g/dL; Glucose 100 mg/dL (74-106); Potassium 3.1 mmol/L (3.5-5.1); Sodium 141 mmol/L (136-145); Total Protein 5.8 g/dL (6.4-8.2)
--- NOTE | 2023-06-04 06:00 | XR_ITS ---
The [address] [address] Patient Name: NEELAM VIRAMONTES MRN: [id number] date: 1950 Sex: F Assigned Patient Location: [place] Current Patient Location: [place] Accession/Order Number: [id number] Exam Date: 06/04/2023 06:30 Report Date: 06/04/2023 07:12 At the request of: ALIYA CLAYTON Procedure: XR chest 2V EXAMINATION: XR chest 2V HISTORY: pleural effusion , dyspnea, cough COMPARISON: XR chest 06/02/2023 FINDINGS: LUNGS: Mild haziness and stranding within left lung base. VASCULATURE: No increased pulmonary vasculature. PLEURA: Bilateral pleural effusions. CARDIAC: Cardiomegaly. MEDIASTINUM: No visible mass or adenopathy. BONES: No fracture or visible bone lesion. OTHER: Negative. XR/XR chest 2V IMPRESSION: 1. Interval increase in size of a [id number] right pleural effusion. 2. Slight improvement involving moderate-large left pleural effusion and basilar atelectasis/infiltrates. 3. Grossly stable cardiomegaly. Electronically authenticated by: LAVERNE KENYON Date: 06/04/2023 07:12
[2023-06-04] MEDS: AMIODARONE HCL 200 MG TABLET PO (08:54)
[2023-06-04] MEDS: PROSTAT 15 GM PROTEIN/100 CAL 30 ML LIQUID PACKET PO ×2 (08:54→21:45)
[2023-06-04] MEDS: SPIRONOLACTONE 25 MG TABLET 12.5 MG PO (08:54)
[2023-06-04] MEDS: DOXAZOSIN MESYLATE 2 MG TABLET PO ×2 (08:54→21:45)
[2023-06-04] MEDS: FUROSEMIDE 40 MG TABLET PO (08:54)
[2023-06-04] MEDS: LEVOFLOXACIN IN DEXTROSE 5 % 500 MG/100 ML PIGGYBACK 100 MG IV (08:59)
[2023-06-04] MEDS: PANTOPRAZOLE SODIUM 40 MG VIAL IV (08:59)
[2023-06-04] MEDS: CARVEDILOL 6.25 MG TABLET PO ×2 (10:02→21:45)
[2023-06-04] MEDS: APIXABAN 5 MG TABLET 2.5 MG PO ×2 (10:02→21:45)
--- NOTE | 2023-06-04 10:53 | PT.DAILY ---
Physical Therapy Daily Note PT Daily Note/Assess Start: 06/03/23 11:13 Freq: Status: Active Protocol: Document 06/04/23 09:25 CRISTIANO (Rec: 06/04/23 10:53 CRISTIANO [id number]) Physical Therapy Daily Note/Assessment Time In/Time Out Time In 09:25 Time Out 09:45 Subjective Subjective Patient in bed, agrees to get up to chair. Complaints of being achy all over, but renetta. in R shoulder. Therapeutic Exercise Time Therapeutic Exercise Minutes (minutes) 5 Therapeutic Exercise Units 0 Therapeutic Exercise Treatment Therapeutic Exercise Treatment Seated exercises in chair with AROM and MRE 10 reps to improve strength. Therapeutic Activity Time Therapeutic Activity Minutes (minutes) 10 Therapeutic Activity Units 1 Therapeutic Activity Treatment Bed Mobility Ability Standby Assistance Chair Transfer Ability Contact Guard Assist Therapeutic Activity Comments Supine to sit SBA. Patient can completes safe log rolling technique on own just slow and complaints of overall pain and soreness with movement. Sit to stand from EOB at RW CGA/SBA. Gait 20' with CGA, moves slow but shows no LOB today. Total Physical Therapy Time Total Therapy Minutes 15 Total Physical Therapy Units 1 Summary Daily Note Summary Improved ability with gait this AM, no LOB as described on previous date. Patient moves slow, and distance continues to be limited due to weakness and pain. Recommend SNF at [place] for patient to regain functional strength and assure safety and independence with ambulation and functional activities.
--- NOTE | 2023-06-04 12:05 | PM.PN ---
Progress Note: Subjective Subjective Interval history: Patient continues to slowly improve. Continues to have severe weakness and difficulty with transfers and ambulation. Afebrile. In NSR with normal pulse. No chest pain or palpitations. No SOB or cough. Decreased appetite but no emesis or diarrhea. Exam Constitutional Vital Signs, click to edit/add: Last Vital Signs Temp 98.1 F 06/04/23 11:46 Pulse 63 06/04/23 11:55 Resp 20 06/04/23 11:46 BP 121/70 06/04/23 11:46 Pulse Ox 94 L 06/04/23 11:46 O2 Del Method Room Air 06/04/23 11:46 Documenting provider has reviewed patient's vital signs: yes Common normals: no apparent distress, oriented x3 and alert HENMT Common normals: normocephalic Eye Common normals: PERRL and EOMs intact bilaterally Respiratory Common normals: normal respiratory effort and clear to auscultation bilaterally Cardio Common normals: regular rate, regular rhythm, no gallops, no murmurs and no rub GI Common normals: Normal to inspection, nondistended, normoactive bowel sounds present and non-tender Extremity Common normals: no pedal edema Progress Note: Objective Labs Labs: Short CBC 06/04/23 Range/Units 04:13 WBC 9.1 (4.0-11.0) 10^3/uL Hgb 8.9 L (12.0-16.0) g/dL Hct 27.6 L (36.0-48.0) % Plt Count 386 (150-450) 10^3/uL BMP 06/04/23 04:13 Sodium 141 Potassium 3.1 L Chloride 102 Carbon Dioxide 29.6 BUN 54.0 H Creatinine 2.46 H Glucose 100 Calcium 8.3 L Liver Function 06/04/23 Range/Units 04:13 Total Bilirubin 0.3 (0.2-1.0) mg/dL AST 70 H (15-37) U/L ALT 68 H (14-59) U/L Alkaline Phosphatase 128 H (46-116) U/L Albumin 1.7 L (3.4-5.0) g/dL Progress Note: A&P Assessment and Plan (1) Acute UTI: (2) Acute on chronic heart failure with preserved ejection fraction (HFpEF): (3) Weakness generalized: (4) Paroxysmal atrial fibrillation: (5) Anemia in CKD (chronic kidney disease): (6) Hypertension: Qualifiers: Hypertension type: primary hypertension Qualified Code(s): I10 - Essential (primary) hypertension (7) CKD (chronic kidney disease) stage 4, GFR 15-29 ml/min: (8) CAD (coronary artery disease), [place] coronary artery: (9) Severe protein-calorie malnutrition: Plan Patient continues to improve. Urine culture grew S. lungdunensis which caused UTI. Stop rocephin and continue levaquin based on sensitivity. Continued effusion and renal function worse. Stop lasix and change to bumex. Continue aldactone. In NSR and monitor. Continue medication. Continue PT for weakness.
[2023-06-04] MEDS: ENSURE CLEAR 237 ML LIQUID PO (13:10)
[2023-06-04] MEDS: ACETAMINOPHEN 500 MG TABLET 1000 MG PO (16:20)
[2023-06-04] MEDS: DICLOFENAC SODIUM 100 GM TUBE TOPICAL (21:45)
[2023-06-04] MEDS: NON-FORMULARY 1 EACH (Rosuvastatin 20 mg tablet) 20 EACH PO (21:46)
[2023-06-05] VITALS (23 sets, daily range): BP systolic 100–119; BP diastolic 59–67; PULSE 60–66; TEMP 36.3–37.2; O2SAT 4–95
[2023-06-05 05:03] LABS: Basophils Absolute Auto 0.1 10^3/uL (0.0-0.1); Basophils Percent Auto 0.8 % (0.2-2.0); Eosinophils Absolute Auto 0.5 10^3/uL (0.0-0.7); Eosinophils Percent Auto 6.8 % (0.9-7.0); Hematocrit 26.4 % (36.0-48.0); Hemoglobin 8.4 g/dL (12.0-16.0); Immature Granulocytes Abs Auto 0.07 10^3/uL (0.00-0.03); Lymphocytes Absolute Auto 1.7 10^3/uL (1.2-3.8); Lymphocytes Percent Auto 22.7 % (20.5-60.0); Mean Corpuscular HGB Conc 31.8 g/dL (29.9-35.2); Mean Corpuscular Hemoglobin 29.6 pg (26.7-34.0); Mean Platelet Volume 9.8 fL (9.5-13.5); Monocytes Absolute Auto 0.7 10^3/uL (0.3-0.8); Monocytes Percent Auto 8.9 % (1.7-12.0); Neutrophils Absolute Auto 4.4 10^3/uL (1.4-6.5); Neutrophils Percent Auto 59.8 % (43.0-75.0); Platelet Count 370 10^3/uL (150-450); Red Blood Count 2.84 10^6/uL (4.20-5.40); Red Cell Distribution Width 14.4 % (11.0-15.0); White Blood Count 7.3 10^3/uL (4.0-11.0)
[2023-06-05 05:35] LABS: Alanine Aminotransferase 56 U/L (14-59); Albumin Globulin Ratio 0.4; Albumin Level 1.7 g/dL (3.4-5.0); Alkaline Phosphatase 114 U/L (46-116); Anion Gap 10.4; Aspartate Amino Transferase 60 U/L (15-37); Bilirubin Total 0.2 mg/dL (0.2-1.0); Calcium 8.3 mg/dL (8.5-10.1); Carbon Dioxide 32.9 mmol/L (21.0-32.0); Chloride 101 mmol/L (98-107); Estimated GFR (African America 24 (>=60); Estimated GFR (Non-African Ame 19 (>=60); Globulin 3.8 g/dL; Glucose 94 mg/dL (74-106); Potassium 3.3 mmol/L (3.5-5.1); Sodium 141 mmol/L (136-145); Total Protein 5.5 g/dL (6.4-8.2)
[2023-06-05] MEDS: PROSTAT 15 GM PROTEIN/100 CAL 30 ML LIQUID PACKET PO ×2 (08:26→20:58)
[2023-06-05] MEDS: AMIODARONE HCL 200 MG TABLET PO (08:26)
[2023-06-05] MEDS: APIXABAN 5 MG TABLET 2.5 MG PO ×2 (08:26→20:58)
[2023-06-05] MEDS: PANTOPRAZOLE SODIUM 40 MG VIAL IV (08:26)
[2023-06-05] MEDS: DOXAZOSIN MESYLATE 2 MG TABLET PO ×2 (08:26→20:58)
[2023-06-05] MEDS: SPIRONOLACTONE 25 MG TABLET 12.5 MG PO (08:27)
[2023-06-05] MEDS: ACETAMINOPHEN 325 MG TABLET 650 MG PO (08:28)
[2023-06-05] MEDS: BUMETANIDE 1 MG TABLET PO (08:31)
[2023-06-05 08:50] LABS: Occult Blood Positive
[2023-06-05] MEDS: CARVEDILOL 6.25 MG TABLET PO ×2 (10:12→23:01)
[2023-06-05] MEDS: ENSURE CLEAR 237 ML LIQUID PO (13:12)
--- NOTE | 2023-06-05 14:15 | PM.PN ---
Progress Note: Subjective Subjective Interval history: Patient feels well today. Weakness improved and moving around room better. Still weakness and easily fatigued. Afebrile. In NSR with normal pulse. No chest pain or palpitations. No SOB or cough. Decreased appetite but no emesis or diarrhea. Exam Constitutional Vital Signs, click to edit/add: Last Vital Signs Temp 97.4 F L 06/05/23 11:53 Pulse 63 06/05/23 13:45 Resp 20 06/05/23 11:53 BP 102/67 06/05/23 11:53 Pulse Ox 4 L 06/05/23 11:53 O2 Del Method Room Air 06/05/23 11:53 Documenting provider has reviewed patient's vital signs: yes Common normals: no apparent distress, oriented x3 and alert HENMT Common normals: normocephalic Eye Common normals: PERRL and EOMs intact bilaterally Respiratory Common normals: normal respiratory effort and clear to auscultation bilaterally Cardio Common normals: regular rate, regular rhythm, no gallops, no murmurs and no rub GI Common normals: Normal to inspection, nondistended, normoactive bowel sounds present and non-tender Extremity Common normals: no pedal edema Progress Note: Objective Labs Labs: Short CBC 06/05/23 Range/Units 04:17 WBC 7.3 (4.0-11.0) 10^3/uL Hgb 8.4 L (12.0-16.0) g/dL Hct 26.4 L (36.0-48.0) % Plt Count 370 (150-450) 10^3/uL BMP 06/05/23 04:17 Sodium 141 Potassium 3.3 L Chloride 101 Carbon Dioxide 32.9 H BUN 61.0 H Creatinine 2.44 H Glucose 94 Calcium 8.3 L Liver Function 06/05/23 Range/Units 04:17 Total Bilirubin 0.2 (0.2-1.0) mg/dL AST 60 H (15-37) U/L ALT 56 (14-59) U/L Alkaline Phosphatase 114 (46-116) U/L Albumin 1.7 L (3.4-5.0) g/dL Progress Note: A&P Assessment and Plan (1) Acute UTI: (2) Acute on chronic heart failure with preserved ejection fraction (HFpEF): (3) Weakness generalized: (4) Paroxysmal atrial fibrillation: (5) Anemia in CKD (chronic kidney disease): (6) Hypertension: Qualifiers: Hypertension type: primary hypertension Qualified Code(s): I10 - Essential (primary) hypertension (7) CKD (chronic kidney disease) stage 4, GFR 15-29 ml/min: (8) CAD (coronary artery disease), [place] coronary artery: (9) Severe protein-calorie malnutrition: Plan Patient continues to improve. Continue antibiotics. Continue IV fluids. Started bumex and off lasix. Monitor renal function. Remains in NSR. Continue PT for weakness. Likely ready for discharge in next 1-2 days.
[2023-06-05] MEDS: DICLOFENAC SODIUM 100 GM TUBE TOPICAL (21:01)
[2023-06-05] MEDS: NON-FORMULARY 1 EACH (Rosuvastatin 20 mg tablet) 20 EACH PO (22:56)
[2023-06-06] VITALS (21 sets, daily range): BP systolic 96–121; BP diastolic 52–74; PULSE 60–68; TEMP 36.6–37.3; O2SAT 92–96
[2023-06-06 04:58] LABS: Basophils Absolute Auto 0.1 10^3/uL (0.0-0.1); Basophils Percent Auto 0.7 % (0.2-2.0); Eosinophils Absolute Auto 0.6 10^3/uL (0.0-0.7); Hematocrit 29.9 % (36.0-48.0); Hemoglobin 9.4 g/dL (12.0-16.0); Immature Granulocytes Abs Auto 0.04 10^3/uL (0.00-0.03); Immature Granulocytes Pct Auto 0.5 % (0.0-0.5); Lymphocytes Absolute Auto 1.9 10^3/uL (1.2-3.8); Lymphocytes Percent Auto 21.8 % (20.5-60.0); Mean Corpuscular HGB Conc 31.4 g/dL (29.9-35.2); Mean Corpuscular Hemoglobin 29.6 pg (26.7-34.0); Mean Platelet Volume 9.8 fL (9.5-13.5); Monocytes Absolute Auto 0.8 10^3/uL (0.3-0.8); Monocytes Percent Auto 8.8 % (1.7-12.0); Neutrophils Absolute Auto 5.2 10^3/uL (1.4-6.5); Neutrophils Percent Auto 61.2 % (43.0-75.0); Platelet Count 392 10^3/uL (150-450); Red Blood Count 3.18 10^6/uL (4.20-5.40); Red Cell Distribution Width 14.1 % (11.0-15.0); White Blood Count 8.6 10^3/uL (4.0-11.0)
[2023-06-06 05:25] LABS: Alanine Aminotransferase 78 U/L (14-59); Albumin Globulin Ratio 0.5; Albumin Level 1.9 g/dL (3.4-5.0); Alkaline Phosphatase 128 U/L (46-116); Anion Gap 12.8; Aspartate Amino Transferase 103 U/L (15-37); BUN Creatinine Ratio 29.6; Bilirubin Total 0.3 mg/dL (0.2-1.0); Calcium 8.6 mg/dL (8.5-10.1); Carbon Dioxide 32.6 mmol/L (21.0-32.0); Chloride 101 mmol/L (98-107); Estimated GFR (African America 27 (>=60); Estimated GFR (Non-African Ame 22 (>=60); Glucose 97 mg/dL (74-106); Potassium 3.4 mmol/L (3.5-5.1); Sodium 143 mmol/L (136-145); Total Protein 5.9 g/dL (6.4-8.2)
[2023-06-06] MEDS: DICLOFENAC SODIUM 100 GM TUBE TOPICAL ×3 (06:48→23:49)
[2023-06-06] MEDS: BUMETANIDE 1 MG TABLET PO (08:08)
[2023-06-06] MEDS: APIXABAN 5 MG TABLET 2.5 MG PO ×2 (08:09→21:35)
[2023-06-06] MEDS: DOXAZOSIN MESYLATE 2 MG TABLET PO ×2 (08:09→21:36)
[2023-06-06] MEDS: PANTOPRAZOLE SODIUM 40 MG VIAL IV (08:09)
[2023-06-06] MEDS: AMIODARONE HCL 200 MG TABLET PO (08:09)
[2023-06-06] MEDS: LEVOFLOXACIN IN DEXTROSE 5 % 500 MG/100 ML PIGGYBACK 100 MG IV (08:09)
[2023-06-06] MEDS: PROSTAT 15 GM PROTEIN/100 CAL 30 ML LIQUID PACKET PO ×2 (08:09→21:35)
[2023-06-06] MEDS: SPIRONOLACTONE 25 MG TABLET 12.5 MG PO (08:09)
[2023-06-06] MEDS: 0.9 % SODIUM CHLORIDE 250 ML 10 ML IV (08:10)
--- NOTE | 2023-06-06 10:03 | SWNOTE1 ---
SW did receive call from passenger car cleaning supervisor from weekend. She voiced pt's significant other was speaking to them about code status and POA. They did let him know it is pt's decision as she is alert and oriented. Nursing also spoke with pt this morning and she wants to remain a full code. SW stopped in and spoke with pt prior to significant other arriving as well. She does voice she wants to be a full code, she voiced she was confused at what the different status's meant, but does understanding now. Pt's daughter came to visit over weekend and she voiced it went alright. SW again asked pt if she felt she was being controlled by anyone. She voiced she is her own boss and she makes her own decisions. Pt voiced she does feel safe at home and with her significant other. She stated they talk things out and make decisions together. SW asked pt if she still wants to go to rehab and she voiced she did. SW to stop back in when Benny arrives.
--- NOTE | 2023-06-06 10:13 | SWNOTE1 ---
SW did receive message from case management and they were in room with zak and Benny. They would like SW to look in to [facility]. SW called and spoke with Brandi [facility] and she voiced to send over referral. They received face sheet, will need more information. They do take [facility].
--- NOTE | 2023-06-06 10:15 | CM.NOTE ---
Rounds made with Dr. Lynch, discussed with pt and lab resutls this AM and plan of care. Pt and feel as pt could still benefit from skilled therapy at discharge. Pt requests [facility], updated SW on plan.
--- NOTE | 2023-06-06 10:56 | PT.DAILY ---
Physical Therapy Daily Note PT Daily Note/Assess Start: 06/03/23 11:13 Freq: Status: Active Protocol: Document 06/06/23 10:45 SCARLET (Rec: 06/06/23 10:56 SCARLET [id number]) Physical Therapy Daily Note/Assessment Time In/Time Out Time In 10:10 Time Out 10:25 Pain In Pain N/A Pain Out Pain N/A Subjective Subjective Pt supine upon arrival. Needs to use the restroom and is agreeable to allow GAGE MAKER to assist with this. Therapeutic Activity Time Therapeutic Activity Minutes (minutes) 12 Therapeutic Activity Units 1 Therapeutic Activity Treatment Bed Mobility Ability Standby Assistance Chair Transfer Ability Standby Assistance Therapeutic Activity Comments Pt performs supine>sit SBA with increased time. Sit>stand to RW SBA. Pt amb with RW 20' to restroom, SBA. Able to doff his brief and sit on toilet IND. Sit>stand Won using grab bar. Amb to sink with RW SBA. Static standing at sink to wash face, hands, and brush teeth - all IND. Pt then amb in gold 100'x3 with occ standing rest breaks as her arms are sore and legs are tired. Pt does mention having to take care of a dog at home and is apprehensive to return home because of that and being so weak/unsteady. Pt returned to room in BS chair with call light in reach and needs met. Total Physical Therapy Time Total Therapy Minutes 12 Total Physical Therapy Units 1 Summary Daily Note Summary Improved gait ability and endurance. Recommend HH vs SNF at time but with having to take care of her dog might alter this decision as she is not back to her PLOF.
[2023-06-06] MEDS: CARVEDILOL 6.25 MG TABLET PO ×2 (11:03→21:36)
--- NOTE | 2023-06-06 12:57 | CM.NOTE ---
Discussed with pt Important Message From Medicare, pt denies any questions or concerns.
--- NOTE | 2023-06-06 13:03 | SWNOTE1 ---
[facility] [place] started precert.
--- NOTE | 2023-06-06 16:10 | SWNOTE1 ---
SW completed Health Care Power of Planning Coordinator with pt. Pt's significant other, Benny was in room as well. Copy of HCPOA placed in chart and original given to pt along with a copy.
--- NOTE | 2023-06-06 16:11 | SWNOTE1 ---
[facility]ela[facility] has been started to [facility] in [place].
--- NOTE | 2023-06-06 19:32 | P.PN_ITS ---
Progress Note: Subjective Subjective Interval history: Patient continues to improve. Remains in NSR and vitals stable. Diuresing well and labs improving. Strength slowly improving but PT recommending SNF. Decreased PO but no emesis or diarrhea. No chest pain or palpitations. No SOB or cough. Exam Constitutional Vital Signs, click to edit/add: Last Vital Signs Temp 98.0 F 06/06/23 19:21 Pulse 60 06/06/23 19:21 Resp 20 06/06/23 19:21 BP 96/52 06/06/23 19:21 Pulse Ox 92 L 06/06/23 19:21 O2 Del Method Room Air 06/06/23 19:21 Documenting provider has reviewed patient's vital signs: yes Common normals: no apparent distress, oriented x3 and alert HENMT Common normals: normocephalic Eye Common normals: PERRL and EOMs intact bilaterally Respiratory Common normals: normal respiratory effort and clear to auscultation bilaterally Cardio Common normals: regular rate, regular rhythm, no gallops, no murmurs and no rub GI Common normals: Normal to inspection, nondistended, normoactive bowel sounds present and non-tender Extremity Common normals: no pedal edema Progress Note: Objective Labs Labs: Short CBC 06/06/23 Range/Units 04:06 WBC 8.6 (4.0-11.0) 10^3/uL Hgb 9.4 L (12.0-16.0) g/dL Hct 29.9 L (36.0-48.0) % Plt Count 392 (150-450) 10^3/uL BMP 06/06/23 04:06 Sodium 143 Potassium 3.4 L Chloride 101 Carbon Dioxide 32.6 H BUN 64.0 H Creatinine 2.16 H Glucose 97 Calcium 8.6 Liver Function 06/06/23 Range/Units 04:06 Total Bilirubin 0.3 (0.2-1.0) mg/dL AST 103 H (15-37) U/L ALT 78 H (14-59) U/L Alkaline Phosphatase 128 H (46-116) U/L Albumin 1.9 L (3.4-5.0) g/dL Progress Note: A&P Assessment and Plan (1) Acute UTI: (2) Acute on chronic heart failure with preserved ejection fraction (HFpEF): (3) Weakness generalized: (4) Paroxysmal atrial fibrillation: (5) Anemia in CKD (chronic kidney disease): (6) Hypertension: Qualifiers: Hypertension type: primary hypertension Qualified Code(s): I10 - Essential (primary) hypertension (7) CKD (chronic kidney disease) stage 4, GFR 15-29 ml/min: (8) CAD (coronary artery disease), [place] coronary artery: (9) Severe protein-calorie malnutrition: Plan Patient improving and continue antibiotics. Remains in NSR and continue medication. Edema stable and continue bumex. Monitor labs. Continue PT for weakness. Information sent to SNF for precert.
[2023-06-06] MEDS: NON-FORMULARY 1 EACH (Rosuvastatin 20 mg tablet) 20 EACH PO (21:36)
[2023-06-07] VITALS (20 sets, daily range): BP systolic 94–112; BP diastolic 49–67; PULSE 54–84; TEMP 36.4–37.1; O2SAT 90–98
[2023-06-07 05:18] LABS: Basophils Absolute Auto 0.1 10^3/uL (0.0-0.1); Basophils Percent Auto 0.8 % (0.2-2.0); Eosinophils Absolute Auto 0.7 10^3/uL (0.0-0.7); Eosinophils Percent Auto 8.1 % (0.9-7.0); Immature Granulocytes Abs Auto 0.04 10^3/uL (0.00-0.03); Immature Granulocytes Pct Auto 0.4 % (0.0-0.5); Lymphocytes Percent Auto 22.1 % (20.5-60.0); Mean Corpuscular HGB Conc 32.1 g/dL (29.9-35.2); Mean Corpuscular Hemoglobin 30.2 pg (26.7-34.0); Mean Platelet Volume 9.6 fL (9.5-13.5); Monocytes Absolute Auto 0.9 10^3/uL (0.3-0.8); Neutrophils Absolute Auto 5.2 10^3/uL (1.4-6.5); Neutrophils Percent Auto 58.6 % (43.0-75.0); Platelet Count 345 10^3/uL (150-450); Red Blood Count 2.98 10^6/uL (4.20-5.40); Red Cell Distribution Width 14.1 % (11.0-15.0); White Blood Count 8.9 10^3/uL (4.0-11.0)
[2023-06-07 05:58] LABS: Alanine Aminotransferase 70 U/L (14-59); Albumin Globulin Ratio 0.4; Albumin Level 1.7 g/dL (3.4-5.0); Alkaline Phosphatase 117 U/L (46-116); Anion Gap 9.5; Aspartate Amino Transferase 71 U/L (15-37); BUN Creatinine Ratio 26.1; Bilirubin Total 0.3 mg/dL (0.2-1.0); Calcium 8.5 mg/dL (8.5-10.1); Carbon Dioxide 33.9 mmol/L (21.0-32.0); Chloride 100 mmol/L (98-107); Estimated GFR (African America 28 (>=60); Estimated GFR (Non-African Ame 23 (>=60); Glucose 94 mg/dL (74-106); Potassium 3.4 mmol/L (3.5-5.1); Sodium 140 mmol/L (136-145); Total Protein 5.7 g/dL (6.4-8.2)
[2023-06-07] MEDS: SPIRONOLACTONE 25 MG TABLET 12.5 MG PO (09:13)
[2023-06-07] MEDS: APIXABAN 5 MG TABLET 2.5 MG PO ×2 (09:13→20:31)
[2023-06-07] MEDS: PROSTAT 15 GM PROTEIN/100 CAL 30 ML LIQUID PACKET PO ×2 (09:14→20:31)
[2023-06-07] MEDS: AMIODARONE HCL 200 MG TABLET PO (09:14)
[2023-06-07] MEDS: DOXAZOSIN MESYLATE 2 MG TABLET PO ×2 (09:14→20:31)
[2023-06-07] MEDS: BUMETANIDE 1 MG TABLET PO (09:14)
[2023-06-07] MEDS: PANTOPRAZOLE SODIUM 40 MG VIAL IV (09:14)
--- NOTE | 2023-06-07 09:19 | SWNOTE1 ---
SW completed HENS.
[2023-06-07] MEDS: CARVEDILOL 6.25 MG TABLET PO ×2 (10:11→21:35)
[2023-06-07] MEDS: ACETAMINOPHEN 500 MG TABLET 1000 MG PO (10:11)
--- NOTE | 2023-06-07 10:17 | PT.DAILY ---
Physical Therapy Daily Note PT Daily Note/Assess Start: 06/03/23 11:13 Freq: Status: Active Protocol: Document 06/07/23 10:14 SCARLET (Rec: 06/07/23 10:17 SCARLET [id number]) Physical Therapy Daily Note/Assessment Time In/Time Out Time In 09:40 Time Out 09:52 Pain In Pain N/A Pain Out Pain N/A Subjective Subjective Pt supine upon arrival. Agrees to PT. Did not sleep well. Cont to have shoulder pain. Therapeutic Exercise Time Therapeutic Exercise Minutes (minutes) 4 Therapeutic Exercise Units 0 Therapeutic Exercise Treatment Therapeutic Exercise Treatment Seated bilat LE strengthening ex complete while sitting EOB unsupported without LOB. Therapeutic Activity Time Therapeutic Activity Minutes (minutes) 7 Therapeutic Activity Units 1 Therapeutic Activity Treatment Bed Mobility Ability Standby Assistance Chair Transfer Ability Standby Assistance Therapeutic Activity Comments Supine>sit SBA with increased time. Pt completes seated ex while sitting EOB unsupported without LOB. Sit>stand SBA to RW. pt amb 100'x2 today with standing rest break due to shoulder pain. Pt demonstrates more fatigue on this date vs yesterdays session. Pt returned to room to BS chair with call light in reach and needs met. Total Physical Therapy Time Total Therapy Minutes 11 Total Physical Therapy Units 1 Summary Daily Note Summary Decreased gait endurance on this date. Easily fatigued. Shoulder pain persists.
--- NOTE | 2023-06-07 10:52 | SWNOTE1 ---
Pt's significant other, Benny, called [facility] and they told him that no precert has been submitted. TANNER spoke with Kait from [facility] with Benny and she voiced they only can see something for Home Health. SW assured Benny that TANNER has submitted everything to Brandi at [facility] and SW will reach out to her to check on status. TANNER reached out via email to check on status, waiting on reply.
--- NOTE | 2023-06-07 11:01 | SWNOTE1 ---
SW received message back from Brandi at [facility] and she did receive message yesterday that it was started, she will get a reference number for family.
--- NOTE | 2023-06-07 11:32 | CM.NOTE ---
Rounds made with Dr. Lynch, discussed with pt plan of care. Pt will discharge to skilled facility when medically stable.
--- NOTE | 2023-06-07 12:22 | SWNOTE1 ---
Brandi at [facility] was able to get me a pending authorization number once I submitted updates.
--- NOTE | 2023-06-07 13:04 | SWNOTE1 ---
TANNER received message from Brandi at [facility] and they have a pending auth, so [facility] is working on it.
--- NOTE | 2023-06-07 15:37 | SWNOTE1 ---
TANNER called over to Brandi at intake at [facility] and left message. She messaged TANNER back and precert is still pending.
--- NOTE | 2023-06-07 16:12 | P.PN_ITS ---
Progress Note: Subjective Subjective Interval history: Patient stable this am. Remains in NSR and vitals stable. Edema controlled with medication and renal function improving. Strength slowly improving but PT recommending home health vs SNF. Decreased PO but no emesis or diarrhea. No chest pain or palpitations. No SOB or cough. Exam Constitutional Vital Signs, click to edit/add: Last Vital Signs Temp 97.9 F 06/07/23 13:51 Pulse 58 L 06/07/23 13:56 Resp 16 06/07/23 13:51 BP 95/49 06/07/23 13:51 Pulse Ox 93 L 06/07/23 13:51 O2 Del Method Room Air 06/07/23 13:51 Documenting provider has reviewed patient's vital signs: yes Common normals: no apparent distress, oriented x3 and alert HENMT Common normals: normocephalic Eye Common normals: PERRL and EOMs intact bilaterally Respiratory Common normals: normal respiratory effort and clear to auscultation bilaterally Cardio Common normals: regular rate, regular rhythm, no gallops, no murmurs and no rub GI Common normals: Normal to inspection, nondistended, normoactive bowel sounds present and non-tender Extremity Common normals: no pedal edema Progress Note: Objective Labs Labs: Short CBC 06/07/23 Range/Units 04:13 WBC 8.9 (4.0-11.0) 10^3/uL Hgb 9.0 L (12.0-16.0) g/dL Hct 28.0 L (36.0-48.0) % Plt Count 345 (150-450) 10^3/uL BMP 06/07/23 04:13 Sodium 140 Potassium 3.4 L Chloride 100 Carbon Dioxide 33.9 H BUN 55.0 H Creatinine 2.11 H Glucose 94 Calcium 8.5 Liver Function 06/07/23 Range/Units 04:13 Total Bilirubin 0.3 (0.2-1.0) mg/dL AST 71 H (15-37) U/L ALT 70 H (14-59) U/L Alkaline Phosphatase 117 H (46-116) U/L Albumin 1.7 L (3.4-5.0) g/dL Progress Note: A&P Assessment and Plan (1) Acute UTI: (2) Acute on chronic heart failure with preserved ejection fraction (HFpEF): (3) Weakness generalized: (4) Paroxysmal atrial fibrillation: (5) Anemia in CKD (chronic kidney disease): (6) Hypertension: Qualifiers: Hypertension type: primary hypertension Qualified Code(s): I10 - Essential (primary) hypertension (7) CKD (chronic kidney disease) stage 4, GFR 15-29 ml/min: (8) CAD (coronary artery disease), [place] coronary artery: (9) Severe protein-calorie malnutrition: Plan Patient stable. Remains in NSR and vitals normal with medication. Edema stable and renal function improving. Continued weakness and continue PT. Awaiting insurance approval for SNF.
--- NOTE | 2023-06-07 16:20 | SWNOTE1 ---
SW updated pt and pt's significant other to let them know [facility] Last email was at 3:45 and Brandi in intake voiced she will let SW know as soon as she hears anything.
[2023-06-07] MEDS: DICLOFENAC SODIUM 100 GM TUBE TOPICAL (21:07)
[2023-06-07] MEDS: ENSURE CLEAR 237 ML LIQUID PO (21:07)
[2023-06-07] MEDS: NON-FORMULARY 1 EACH (Rosuvastatin 20 mg tablet) 20 EACH PO (21:08)
[2023-06-08] VITALS (11 sets, daily range): BP systolic 107–110; BP diastolic 58–67; PULSE 56–71; TEMP 36.5–36.6; O2SAT 92–95
[2023-06-08 04:54] LABS: Basophils Absolute Auto 0.1 10^3/uL (0.0-0.1); Basophils Percent Auto 0.7 % (0.2-2.0); Eosinophils Absolute Auto 0.7 10^3/uL (0.0-0.7); Hematocrit 28.4 % (36.0-48.0); Hemoglobin 9.1 g/dL (12.0-16.0); Immature Granulocytes Abs Auto 0.05 10^3/uL (0.00-0.03); Immature Granulocytes Pct Auto 0.6 % (0.0-0.5); Lymphocytes Absolute Auto 1.6 10^3/uL (1.2-3.8); Mean Corpuscular Volume 93.7 fL (81.0-99.0); Mean Platelet Volume 9.7 fL (9.5-13.5); Monocytes Absolute Auto 0.9 10^3/uL (0.3-0.8); Monocytes Percent Auto 10.1 % (1.7-12.0); Neutrophils Absolute Auto 5.3 10^3/uL (1.4-6.5); Neutrophils Percent Auto 61.6 % (43.0-75.0); Platelet Count 342 10^3/uL (150-450); Red Blood Count 3.03 10^6/uL (4.20-5.40); White Blood Count 8.5 10^3/uL (4.0-11.0)
[2023-06-08 05:07] LABS: Alanine Aminotransferase 66 U/L (14-59); Albumin Globulin Ratio 0.4; Albumin Level 1.8 g/dL (3.4-5.0); Alkaline Phosphatase 118 U/L (46-116); Aspartate Amino Transferase 65 U/L (15-37); BUN Creatinine Ratio 27.3; Bilirubin Total 0.4 mg/dL (0.2-1.0); Calcium 8.4 mg/dL (8.5-10.1); Carbon Dioxide 33.4 mmol/L (21.0-32.0); Chloride 101 mmol/L (98-107); Estimated GFR (African America 30 (>=60); Estimated GFR (Non-African Ame 25 (>=60); Globulin 4.1 g/dL; Glucose 97 mg/dL (74-106); Potassium 3.4 mmol/L (3.5-5.1); Sodium 140 mmol/L (136-145); Total Protein 5.9 g/dL (6.4-8.2)
[2023-06-08] MEDS: ENSURE CLEAR 237 ML LIQUID PO (05:40)
[2023-06-08] MEDS: DICLOFENAC SODIUM 100 GM TUBE TOPICAL (05:40)
--- NOTE | 2023-06-08 09:05 | SWNOTE1 ---
Last night (06/07/23) the med/surge floor received call from [facility] at 4:20pm and [facility] was asking questions in regards to pt, nursing was able to answer questions. TANNER did get on phone with [facility] to see if they were going to approve of deny pt, she voiced they will likely approve pt and it would be within the next 15-20 mins. TANNER provided [facility] with cell phone number. TANNER then received call at 4:45 and pt was approved. TANNER called karmen Paz at [facility], and she voiced she has not received anything from insurance yet and they can't take her without them getting an efax or email from [facility]. TANNER called over to [facility] and spoke to a nurse. She stated all administration is gone for the day and she is not able to check if they received anything. At this time TANNER notified nursing and doctor that SW is not able to send her to [facility], will have to be done tomorrow (06/08/23).
--- NOTE | 2023-06-08 09:09 | SWNOTE1 ---
TANNER did received message from Brandi at [facility] and she did receive referral and they are ready for pt. TANNER did as where the dc paperwork needs to be sent, waiting to hear back.
--- NOTE | 2023-06-08 09:11 | SWNOTE1 ---
SW called pt's significant other, Benny, and left message. Pt voiced he will be coming around 10:00am.
[2023-06-08] MEDS: BUMETANIDE 1 MG TABLET PO (09:42)
[2023-06-08] MEDS: PANTOPRAZOLE SODIUM 40 MG VIAL IV (09:42)
[2023-06-08] MEDS: PROSTAT 15 GM PROTEIN/100 CAL 30 ML LIQUID PACKET PO (09:43)
[2023-06-08] MEDS: AMIODARONE HCL 200 MG TABLET PO (09:43)
[2023-06-08] MEDS: APIXABAN 5 MG TABLET 2.5 MG PO (09:43)
[2023-06-08] MEDS: DOXAZOSIN MESYLATE 2 MG TABLET PO (09:43)
[2023-06-08] MEDS: SPIRONOLACTONE 25 MG TABLET 12.5 MG PO (09:43)
--- NOTE | 2023-06-08 10:15 | PM.DS1 ---
DS: Providers Provider Date of admission: 06/02/23 09:13 Primary care physician: Non-Staff Physician, Consults: 06/02/23 09:00 Occupational Therapy Eval and Treat Routine Reason for consultation: Weakness Has provider been notified: No Physical Therapy Eval and Treat Routine Reason for consultation: Weakness Has provider been notified: No 06/03/23 09:02 Consult to Title Agent Routine Reason for consult:: Senior Care DS: Diagnosis Discharge Diagnosis (1) Acute UTI: (2) Acute on chronic heart failure with preserved ejection fraction (HFpEF): (3) Weakness generalized: (4) Paroxysmal atrial fibrillation: (5) Anemia in CKD (chronic kidney disease): (6) Hypertension: Qualifiers: Hypertension type: primary hypertension Qualified Code(s): I10 - Essential (primary) hypertension (7) CKD (chronic kidney disease) stage 4, GFR 15-29 ml/min: (8) CAD (coronary artery disease), [place] coronary artery: (9) Severe protein-calorie malnutrition: DS: Summary Hospital Course Hospital Course: Reason for admission: See ER note and H&P for details. 73 y/o female with a history of afib presents to ER with weakness. Not felt well for several days. Developed nausea and vomiting. Not able to keep down PO and severe weakness. To ER and WBC 16.4. CT abdomen negative and UA showed UTI. Labs showed anemia and WILDER. Admitted for weakness. Hospital course: Started rocephin and levaquin for UTI. Started IV fluids for WILDER and resumed home medication. Developed worsening anemia and gave PRBC. Urine showed UTI due to S. lundunensis and stopped rocephin. Started PT/OT for weakness. BNP elevated and gave bumex drip. Renal function worsened and held diuretics. Resumed oral lasix and then changed to oral bumex. Hgb stable. Renal function slowly improved. Continued weakness and PT recommended SNF. Information sent to insurance for percertification. Kidney function to baseline. Received approval and transferred to SNF in stable condition. Will take levaquin x days for UTI. Continue bumex and aldactone. Resume other home medication as directed. Time Spent with Patient Time attestation: Total time spent providing and/or coordinating discharge services: Exam Constitutional Vital Signs, click to edit/add: Last Vital Signs Temp 97.9 F 06/08/23 08:03 Pulse 62 06/08/23 09:47 Resp 16 06/08/23 08:03 BP 110/63 06/08/23 08:03 Pulse Ox 93 L 06/08/23 08:03 O2 Del Method Room Air 06/08/23 08:03 Documenting provider has reviewed patient's vital signs: yes Common normals: no apparent distress, oriented x3 and alert HENMT Common normals: normocephalic Eye Common normals: PERRL and EOMs intact bilaterally Respiratory Common normals: normal respiratory effort and clear to auscultation bilaterally Cardio Common normals: regular rate, regular rhythm, no gallops, no murmurs and no rub GI Common normals: Normal to inspection, nondistended, normoactive bowel sounds present and non-tender Extremity Common normals: no pedal edema DS: Data Data Completed and Pending Labs on day of discharge: Labs from last 24 hours 06/08/23 04:05 WBC 8.5 RBC 3.03 L Hgb 9.1 L Hct 28.4 L MCV 93.7 MCH 30.0 MCHC 32.0 RDW 14.0 Plt Count 342 MPV 9.7 Neut % (Auto) 61.6 Lymph % (Auto) 19.0 L Lawrence % (Auto) 10.1 Eos % (Auto) 8.0 H Baso % (Auto) 0.7 Neut # (Auto) 5.3 Lymph # (Auto) 1.6 Lawrence # (Auto) 0.9 H Eos # (Auto) 0.7 Baso # (Auto) 0.1 Abs Immat Gran (auto) 0.05 H Imm/Tot Granulo (auto) 0.6 H Sodium 140 Potassium 3.4 L Chloride 101 Carbon Dioxide 33.4 H Anion Gap 9.0 BUN 54.0 H Creatinine 1.98 H Est GFR ( Amer) 30 L Est GFR (Non-Af Amer) 25 L BUN/Creatinine Ratio 27.3 Glucose 97 Calcium 8.4 L Total Bilirubin 0.4 AST 65 H ALT 66 H Alkaline Phosphatase 118 H Total Protein 5.9 L Albumin 1.8 L Globulin 4.1 Albumin/Globulin Ratio 0.4 Discharge Plan Discharge Disposition: Xfer SNF Condition: Fair Discharge Medications: New spironolactone 25 mg Tablet 12.5 mg PO QD Qty: 1 0RF bumetanide 1 mg Tablet 1 mg PO Q24H Qty: 1 0RF levofloxacin 750 mg tablet 750 mg PO DAILY 5 Days Qty: 5 0RF Continued pantoprazole 40 mg tablet,delayed release (DR/EC) 40 mg PO DAILY carvedilol 6.25 mg Tablet 6.25 mg PO Q12H 30 Days Qty: 60 0RF Eliquis 5 mg Tablet 2.5 mg PO BID 30 Days Qty: 30 0RF amiodarone [Pacerone] 200 mg Tablet 200 mg PO DAILY 30 Days Qty: 30 0RF naproxen 250 mg tablet 250 mg PO Q12H Rx Instructions: filled 05/19/23 for 9 day supply hydralazine 50 mg tablet 50 mg PO Q8H doxazosin 2 mg tablet 2 mg PO BID rosuvastatin 20 mg tablet 20 mg PO .QHS Discontinued hydrocodone-acetaminophen 5-325 mg Tablet 1 tab PO BID PRN (Reason: Pain Scale 7-10) 2 Days Qty: 4 0RF furosemide 20 mg tablet 20 mg PO .once daily Print 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
--- NOTE | 2023-06-08 10:32 | OT.DAILY ---
Occupational Therapy Daily Note OT Inpatient Daily Visit Note Start: 06/02/23 10:15 Freq: Status: Active Protocol: Document 06/08/23 09:05 BGRAHEEM (Rec: 06/08/23 10:00 BGRAHEEM [id number]) OT Visit Details Time In/Time Out Time In 09:05 Time Out 09:35 OT Treatment Plan Subjective Subjective I am going to [facility] today for rehab. Objective Objective Supine to sit with S. Sit to std from EOB with Vping on hand placement when attempting to std. Pt started to pull self up with RW. Ed on safety concerns and fall prevention. Functional mobility in rm with RW and CGA for safety. Toilet tf and brief mgmt with CGA for safety. [facility] Ind Pt able to std at sink to complete grooming with RW in front of her. Able to std for 8 min with no loss of bal. Functional reaching at sink to gather needed items or grooming. Mobility back to bed and bed tf with CGA. Able to bring feet up onto bed with SBA. Ed on EC ans WS when attempting to complete functional task. Assessment Assessment Exhibits G understand of Ed on safety when attempting ADL tf . Increase knowledge of EC an WS when attempting to complete functional task. Plan Plan Pt is being DC to SNF for rehab. OT Grey Roll Man Timed Codes Self-Fdc Management units 30
--- NOTE | 2023-06-08 10:35 | PC.NURSE ---
Called report yo nurse Suad bell
--- NOTE | 2023-06-08 10:47 | CM.NOTE ---
Rounded with Dr. Lynch. Approved for discharge to [facility]. Discharge to SNF.
--- NOTE | 2023-06-08 10:48 | SWNOTE1 ---
TANNER spoke to pt and significant other in regards to time of discharge. Benny voiced he will go grab a little something to eat and then drive her over. Plan is to leave here between 11 and 11:30. TANNER updated Brandi intake at [facility]. Nursing called with report to [facility]. TANNER provided the packet to Benny to take to [facility]. DC med rec has been sent to Donna in intake. HENS was completed yesterday.
== END 2023-06-08 11:08 | DRG 291 ==
LOC: ER 22:25 → MS 22:31
PROVIDERS: Family Medicine; Registered Nurse; Admitting Provider Family Medicine; Emergency Provider Emergency Medicine; Visit Provider Family Medicine
DX: I13.0 Hypertensive heart and chronic kidney disease with heart failure and stage 1 through stage 4 chronic kidney disease, or unspecified chronic kidney disease (principal); E43 Unspecified severe protein-calorie malnutrition; I50.41 Acute combined systolic (congestive) and diastolic (congestive) heart failure; N39.0 Urinary tract infection, site not specified; N17.9 Acute kidney failure, unspecified; N18.4 Chronic kidney disease, stage 4 (severe); I31.39 Other pericardial effusion (noninflammatory); D72.829 Elevated white blood cell count, unspecified; I48.0 Paroxysmal atrial fibrillation; B95.7 Other staphylococcus as the cause of diseases classified elsewhere; E86.0 Dehydration; D63.1 Anemia in chronic kidney disease; R06.09 Other forms of dyspnea; R11.2 Nausea with vomiting, unspecified; R53.1 Weakness; R79.89 Other specified abnormal findings of blood chemistry; Z68.23 Body mass index [BMI] 23.0-23.9, adult; Z79.899 Other long term (current) drug therapy; Z87.891 Personal history of nicotine dependence
CPT/HCPCS: 0202U; 36415; 36430; 71046; 74176; 80053; 81001; 83605; 83735; 83880; 84145; 84436; 84443; 84484; 85007; 85025; 85027; 86850; 86900; 86901; 87040; 87070; 87086; 87150; 87186; 93005; 93308; 94761; 96361; 96365; 96366; 96367; 96368; 96375; 96376; 97161; 97165; 97530; 97535; 99285; G0328; G0378; P9016

== ENCOUNTER 2023-06-15 22:29 | Inpatient (IN) | payer OTHER, SELFPAY ==
[2023-06-15 22:34] VITALS: BP 146/89; PULSE 68; TEMP 36.8; O2SAT 94; BMI 26.5
--- OUTSIDE RECORDS SUMMARY | 2023-06-15 22:35 | XMS_ITS | CCD ---
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 Abs.Neutrophil (Seg) 3.48 k/uL Normal 1.50-8.10 [facility] Comment on above: Performed By: #### T ROPI #### [address] [place], [place] [id number] Pipeline Operator: Daniella Lott MD Basophils/100 WBC (Bld) 1 % Normal 0-2 [facility] Comment on above: Performed By: #### T ROPI #### [facility] [address] [place] [address] [place]. [place] [id number] Pipeline Operator: Daniella Lott MD Eosinophils (Bld) [#/Vol] 0.06 10*3/uL Normal 0.00-0.44 [facility] Comment on above: Performed By: #### T ROPI #### [facility] [address] [place] [address] [place] [address] Pipeline Operator: Daniella Lott MD Eosinophils/100 WBC (Bld) 1 % Normal 1-4 [facility] Comment on above: Performed By: #### T ROPI #### [facility] [address] [place], [place] 3306783 Pipeline Operator: Daniella Lott MD Erythrocyte distribution width (RBC) [Ratio] 13.5 % Normal 11.8-14.4 [facility] Comment on above: Performed By: #### T ROPI #### [facility] [address] [place], [facility] Pipeline Operator: Daniella Lott MD Hematocrit (Bld) [Volume fraction] 31.5 % Low 36.3-47.1 [facility] Comment on above: Performed By: #### T ROPI #### [address] [place], [facility] Pipeline Operator: Daniella Lott MD Hemoglobin (Bld) [Mass/Vol] 10.1 g/dL Low 11.9-15.1 [facility] Comment on above: Performed By: #### T ROPI #### [address] [place], [facility] Pipeline Operator: Daniella Lott MD Immature granulocytes/100 WBC (Bld) 0 % Normal 0 [facility] Comment on above: Performed By: #### T ROPI #### [address] [place], [facility] Pipeline Operator: Daniella Lott MD Lymphocytes (Bld) [#/Vol] 1.53 10*3/uL Normal 1.10-3.70 [facility] Comment on above: Performed By: #### T ROPI #### [facility] [address] [place], [facility] Pipeline Operator: Daniella Lott MD Lymphocytes/100 WBC (Bld) 27 % Normal 24-43 [facility] Comment on above: Performed By: #### T ROPI #### [facility] [address] [place], [place] [address]83 Pipeline Operator: Daniella Lott MD MCH (RBC) [Entitic mass] 31.6 pg Normal 25.2-33.5 [facility] Comment on above: Performed By: #### T ROPI #### [facility] [address] [place], [place] [address]83 Pipeline Operator: Daniella Lott MD MCHC (RBC) [Mass/Vol] 32.1 g/dL Normal 28.4-34.8 [facility] Comment on above: Performed By: #### T ROPI #### [address] [place], [facility] Pipeline Operator: Daniella Lott MD MCV (RBC) [Entitic vol] 98.4 fL Normal 82.6-102.9 [facility] Comment on above: Performed By: #### T ROPI #### [address] [place], [facility] Pipeline Operator: Daniella Lott MD Monocytes (Bld) [#/Vol] 0.65 10*3/uL Normal 0.10-1.20 [facility] Comment on above: Performed By: #### T ROPI #### [address] [place], [facility] Pipeline Operator: Daniella Lott MD Monocytes/100 WBC (Bld) 11 % Normal 3-12 [facility] Comment on above: Performed By: #### T ROPI #### [facility] [address] [place] [address] Dr. [place], [facility] Pipeline Operator: Daniella Lott MD Neutrophil (Seg) 60 % Normal 36-65 [facility] Comment on above: Performed By: #### T ROPI #### [facility] [address] [place] [address] Dr. [place], [facility] Pipeline Operator: Daniella Lott MD NRBC Automated 0.0 per 100 WBC Normal 0.0 [facility] Comment on above: Performed By: #### T ROPI #### [facility] [address] [place], [place] [address]83 Pipeline Operator: Daniella Lott MD Platelet mean volume (Bld) [Entitic vol] 10.1 fL Normal 8.1-13.5 [facility] Comment on above: Performed By: #### T ROPI #### [facility] [address] [place], [place] [id number] Pipeline Operator: Daniella Lott MD Platelets (Bld) [#/Vol] 138 10*3/uL Normal 138-453 [facility] Comment on above: Performed By: #### T ROPI #### [facility] [address] [place], [place] 1903983 Pipeline Operator: Daniella Lott MD RBC (Bld) [#/Vol] 3.20 10*6/uL Low 3.95-5.11 [facility] Comment on above: Performed By: #### T ROPI #### [facility] [address] [place], [place] 6107583 Pipeline Operator: Daniella Lott MD WBC (Bld) [#/Vol] 5.8 10*3/uL Normal 3.5-11.3 [facility] Comment on above: Performed By: #### T ROPI #### [facility] [address] [place], [place] [id number] Pipeline Operator: Daniella Lott MD Comp Metabolic Pr/rfx MGon 0 05-18-2023 Albumin [Mass/Vol] 3.1 g/dL Low 3.5-5.2 [facility] Comment on above: Performed By: #### T ROPI #### [facility] [address] [place] [address] Pipeline Operator: Daniella Lott MD Albumin/Glob Ratio 1.3 Normal 1.0-2.5 [facility] Comment on above: Performed By: #### T ROPI #### [facility] [address] [place], [place] [id number] Pipeline Operator: Daniella Lott MD Alkaline Phos 58 U/L Normal 35-104 [facility] Comment on above: Performed By: #### T ROPI #### [facility] [address] [place], [place] [address]44[address]83 Pipeline Operator: Daniella Lott MD ALT [Catalytic activity/Vol] 5 U/L Normal 5-33 [facility] Comment on above: Performed By: #### T ROPI #### [facility] [address] [place], [place] 648[address]83 Pipeline Operator: Daniella Lott MD Anion gap [Moles/Vol] 10 mmol/L Normal 9-17 [facility] Comment on above: Performed By: #### T ROPI #### [facility] [address] [place], [place] [address]846383 Pipeline Operator: Daniella Lott MD AST [Catalytic activity/Vol] 13 U/L Normal <32 [facility] Comment on above: Performed By: #### T ROPI #### [facility] [address] [place], [place] [address]84[address] Pipeline Operator: Daniella Lott MD Bilirubin [Mass/Vol] 0.6 mg/dL Normal 0.3-1.2 [facility] Comment on above: Performed By: #### T ROPI #### [facility] [address] [place], [place] 3579383 Pipeline Operator: Daniella Lott MD BUN/CRE Ratio 18 Normal 9-20 [facility] Comment on above: Performed By: #### T ROPI #### [facility] [address] [place], [place] [address]83 Pipeline Operator: Daniella Lott MD Calcium [Mass/Vol] 8.0 mg/dL Low 8.6-10.4 [facility] Comment on above: Performed By: #### T ROPI #### [facility] [address] [place] [address] Pipeline Operator: Daniella Lott MD Chloride [Moles/Vol] 104 mmol/L Normal 98-107 [facility] Comment on above: Performed By: #### T ROPI #### [facility] [address] [place] [address] Pipeline Operator: Daniella Lott MD CO2 [Moles/Vol] 22 mmol/L Normal 20-31 [facility] Comment on above: Performed By: #### T ROPI #### [facility] [address] [place], [place] 1094783 Pipeline Operator: Daniella Lott MD Creatinine [Mass/Vol] 1.3 mg/dL High 0.5-0.9 [facility] Comment on above: Performed By: #### T ROPI #### [facility] [address] [place] [address] Pipeline Operator: Daniella Lott MD GFR/1.73 sq M.predicted among non-blacks MDRD (S/P/Bld) [Vol rate/Area] 44 mL/min/{1.73_m2} Low >60 [facility] Comment on above: Result Comment: These results [...] secretion. Performed By: #### T ROPI #### [facility] [address] [place] [address] Pipeline Operator: Daniella Lott MD Glucose [Mass/Vol] 83 mg/dL Normal 70-99 [facility] Comment on above: Performed By: #### T ROPI #### [facility] [address] [place] [address] Pipeline Operator: Daniella Lott MD Potassium [Moles/Vol] 4.1 mmol/L Normal 3.7-5.3 [facility] Comment on above: Performed By: #### T ROPI #### [facility] [address] [place], [place] 5531283 Pipeline Operator: Daniella Lott MD Protein [Mass/Vol] 5.4 g/dL Low 6.4-8.3 [facility] Comment on above: Performed By: #### T ROPI #### [facility] [address] [place], [place] 3305283 Pipeline Operator: Daniella Lott MD Sodium [Moles/Vol] 136 mmol/L Normal 135-144 [facility] Comment on above: Performed By: #### T ROPI #### [facility] [address] [place], [place] 2479183 Pipeline Operator: Daniella Lott MD Urea nitrogen [Mass/Vol] 23 mg/dL Normal 8-23 [facility] Comment on above: Performed By: #### T ROPI #### [address] [place] [address] Pipeline Operator: Daniella Lott MD Comprehensive Metabolic Pane l w/ Reflex to MGon 05-18-2023 Albumin [Mass/Vol] 3.1 g/dL Low 3.5 - 5.2 g/dL [facility] Albumin/Globulin [Mass ratio] 1.3 {ratio} 1.0 - 2.5 [facility] ALP [Catalytic activity/Vol] 58 U/L 35 - 104 U/L [facility] ALT [Catalytic activity/Vol] 5 U/L 5 - 33 U/L [facility] Anion gap [Moles/Vol] 10 mmol/L 9 - 17 mmol/L [facility] AST [Catalytic activity/Vol] 13 U/L [facility] - 32 U/L [facility] Bilirubin [Mass/Vol] 0.6 mg/dL 0.3 - 1.2 mg/dL [facility] Calcium [Mass/Vol] 8.0 mg/dL Low 8.6 - 10. 4 mg/dL [facility] Chloride [Moles/Vol] 104 mmol/L 98 - 107 mmol/L [facility] CO2 [Moles/Vol] 22 mmol/L 20 - 31 mmol/L [facility] Creatinine [Mass/Vol] 1.3 mg/dL High 0.5 - 0.9 mg/dL [facility] GFR/1.73 sq M.predicted MDRD (S/P/Bld) [Vol rate/Area] 44 mL/min/{1.73_m2} Low - PINF [facility] Comment on above: These results are [...] [Mass/Vol] 83 mg/dL 70 - 99 mg/dL [facility] Interpretation and review of laboratory results Abnormal [facility] Potassium [Moles/Vol] 4.1 mmol/L 3.7 - 5.3 mmol/L [facility] Protein [Mass/Vol] 5.4 g/dL Low 6.4 - 8.3 g/dL [facility] Sodium [Moles/Vol] 136 mmol/L 135 - 144 mmol/L [facility] Urea nitrogen [Mass/Vol] 23 mg/dL 8 - 23 mg/dL [facility] Urea nitrogen/Creatinin e [Mass ratio] 18 mg/mg 9 - 20 [facility] EKG 12 LeadOrdered By: Adam Silvestre on 05-18-2023 Atrial Rate 58 BPM [facility] Work Phone: P Keenes 69 degrees [facility] Work Phone: P-R Interval 140 ms [facility] Work Phone: Q-T Interval 418 ms [facility] Work Phone: QRS Duration 82 ms [facility] Work Phone: QTc Calculation (Bazett) 410 ms [facility] Work Phone: R Keenes 43 degrees [facility] Work Phone: T Keenes 54 degrees [facility] Work Phone: Ventricular Rate 58 BPM [facility] Work Phone: [facility] Work Phone: EKG 12 Leadon 05-18-2023 Sinus bradycardia Otherwise normal ECG No previous ECGs available Confirmed by LAVERNE SILVESTRE ([id number]) on 05/18/2023 1:01:51 AM [facility] Laverne Silvestre MD - 05/18/2023 Sinus bradycardia Otherwise normal ECG No previous ECGs available Confirmed by LAVERNE SILVESTRE ([id number]) on 05/18/2023 1:01:51 AM [facility] Atrial Rate 75 BPM [facility] P Keenes 91 degrees [facility] P-R Interval 154 ms [facility] Q-T Interval 380 ms [facility] QRS Duration 86 ms [facility] QTc Calculation (Bazett) 424 ms [facility] R Keenes 38 degrees [facility] T Keenes 50 degrees [facility] Ventricular Rate 75 BPM [facility] Normal sinus rhythm Normal ECG When compared with ECG of 17-MAY-2023 11:52, (unconfirmed) No significant change was found Confirmed by LAVERNE SILVESTRE ([id number]) on 05/18/2023 12:57:09 AM [facility] Laverne Silvestre MD - 05/18/2023 Normal sinus rhythm Normal ECG When compared with ECG of 17-MAY-2023 11:52, (unconfirmed) No significant change was found Confirmed by LAVERNE SILVESTRE ([id number]) on 05/18/2023 12:57:09 AM [facility] EKG Rhythm Stripon [facility] CBC with Auto Differentialon 05-17-2023 Basophils (Bld) [#/Vol] 0.03 10*3/uL [facility] Immature granulocytes (Bld) [#/Vol] [facility] Interpretation and review of laboratory results Abnormal [facility] Lymphocytes/100 WBC (Bld) 1.23 % [facility] Monocytes/100 WBC (Bld) 0.57 % [facility] Neutrophils/100 WBC (Bld) 75 % High 36 - 65 % [facility] Nucleated RBC/100 WBC (Bld) [Ratio] 0.0 % 0.0 per 100 WBC [facility] Segmented neutrophils/100 WBC (Bld) 5.64 % [facility] WBC other (Bld) [#/Vol] 7.6 [facility] CBC with Diffon 05-17-2023 Abs. Basophil 0.03 k/uL Normal 0.00-0.20 [facility] Comment on above: Performed By: #### T ROPI #### [facility] [address] [place] [address] [place] [address] Pipeline Operator: Daniella Lott MD Abs.Imm.Granulocyt e <0.03 Normal 0.00-0.30 [facility] Comment on above: Performed By: #### T ROPI #### [facility] [address] [place] [address] [place] [address] Pipeline Operator: Daniella Lott MD Abs.Neutrophil (Seg) 5.64 k/uL Normal 1.50-8.10 [facility] Comment on above: Performed By: #### T ROPI #### [facility] [address] [place] [address] [address] [place] [id number] Pipeline Operator: Daniella Lott MD Lymphocytes (Bld) [#/Vol] 1.23 10*3/uL Normal 1.10-3.70 [facility] Comment on above: Performed By: #### T ROPI #### [facility] [address] [place], [place] [id number] Pipeline Operator: Daniella Lott MD Monocytes (Bld) [#/Vol] 0.57 10*3/uL Normal 0.10-1.20 [facility] Comment on above: Performed By: #### T ROPI #### [facility] [address] [place] [address] Pipeline Operator: Daniella Lott MD Neutrophil (Seg) 75 % High 36-65 [facility] Comment on above: Performed By: #### T ROPI #### [address] [place], [facility] Pipeline Operator: Daniella Lott MD NRBC Automated 0.0 per 100 WBC Normal 0.0 [facility] Comment on above: Performed By: #### T ROPI #### [address] [place], [facility] Pipeline Operator: Daniella Lott MD WBC (Bld) [#/Vol] 7.6 10*3/uL Normal 3.5-11.3 [facility] Comment on above: Performed By: #### T ROPI #### [facility] [address] [place], [place] [id number] Pipeline Operator: Daniella Lott MD Basophils/100 WBC (Bld) 0 % Normal 0-2 [facility] Comment on above: Performed By: #### T ROPI #### [facility] [address] [place], [place] [id number] Pipeline Operator: Daniella Lott MD Eosinophils (Bld) [#/Vol] 0.11 10*3/uL Normal 0.00-0.44 [facility] Comment on above: Performed By: #### T ROPI #### [address] [place] [id number] Pipeline Operator: Daniella Lott MD Eosinophils/100 WBC (Bld) 1 % Normal 1-4 [facility] Comment on above: Performed By: #### T ROPI #### [address] [place] [id number] Pipeline Operator: Daniella Lott MD Erythrocyte distribution width (RBC) [Ratio] 13.7 % Normal 11.8-14.4 [facility] Comment on above: Performed By: #### T ROPI #### [address] [place] [id number] Pipeline Operator: Daniella Lott MD Hematocrit (Bld) [Volume fraction] 38.1 % Normal 36.3-47.1 [facility] Comment on above: Performed By: #### T ROPI #### [address] [place] [id number] Pipeline Operator: Daniella Lott MD Hemoglobin (Bld) [Mass/Vol] 11.8 g/dL Low 11.9-15.1 [facility] Comment on above: Performed By: #### T ROPI #### [address] [place] [id number] Pipeline Operator: Daniella Lott MD Immature granulocytes/100 WBC (Bld) 0 % Normal 0 [facility] Comment on above: Performed By: #### T ROPI #### [address] [place] [address] Pipeline Operator: Daniella Lott MD Lymphocytes/100 WBC (Bld) 16 % Low 24-43 [facility] Comment on above: Performed By: #### T ROPI #### [address] [place], [place] 3285383 Pipeline Operator: Daniella Lott MD MCH (RBC) [Entitic mass] 30.6 pg Normal 25.2-33.5 [facility] Comment on above: Performed By: #### T ROPI #### [address] [place], [facility] Pipeline Operator: Daniella Lott MD MCHC (RBC) [Mass/Vol] 31.0 g/dL Normal 28.4-34.8 [facility] Comment on above: Performed By: #### T ROPI #### [address] [place], [facility] Pipeline Operator: Daniella Lott MD MCV (RBC) [Entitic vol] 99.0 fL Normal 82.6-102.9 [facility] Comment on above: Performed By: #### T ROPI #### [address] [place], [facility] Pipeline Operator: Daniella Lott MD Monocytes/100 WBC (Bld) 8 % Normal 3-12 [facility] Comment on above: Performed By: #### T ROPI #### [address] [place], [facility] Pipeline Operator: Daniella Lott MD Platelet mean volume (Bld) [Entitic vol] 9.5 fL Normal 8.1-13.5 [facility] Comment on above: Performed By: #### T ROPI #### [address] [place], [facility] Pipeline Operator: Daniella Lott MD Platelets (Bld) [#/Vol] 169 10*3/uL Normal 138-453 [facility] Comment on above: Performed By: #### T ROPI #### [address] [place], [facility] Pipeline Operator: Daniella Lott MD RBC (Bld) [#/Vol] 3.85 10*6/uL Low 3.95-5.11 [facility] Comment on above: Performed By: #### T ROPI #### [facility] [address] [place] [address] Pipeline Operator: Daniella Lott MD CTA CHEST ABDOMEN PELVIS [...] Faisal Treviño MD 05/17/23 Final result Normal [facility] CTA Chest vessels and Abdomi nal vessels [...] Further evaluation with pelvic ultrasound is recommended. [facility] RIS CONSOLIDATED EXAMINATION: CTA OF THE CHEST, [...] superficial soft tissues show no acute process. [facility] Faisal Julian MD - 05/17/2023 EXAMINATION: CTA [...] Further evaluation with pelvic ultrasound is recommended. [facility] Radiology Study observation (narrative) [facility] CTA Chest vessels and Abdomi nal vessels and Pelvis vessels W contrast IVOrdered By: Faisal Treviño on 05-17-2023 [facility] Work Phone: Comp Metabolic Profon 2023 Albumin [Mass/Vol] 3.8 g/dL Normal 3.5-5.2 [facility] Comment on above: Performed By: #### T ROPI #### [facility] [address] [place] [address] Pipeline Operator: Daniella Lott MD Albumin/Glob Ratio 1.4 Normal 1.0-2.5 [facility] Comment on above: Performed By: #### T ROPI #### [facility] [address] [place], [place] [id number] Pipeline Operator: Daniella Lott MD Alkaline Phos 74 U/L Normal 35-104 [facility] Comment on above: Performed By: #### T ROPI #### [facility] [address] [place], [place] [id number] Pipeline Operator: Daniella Lott MD ALT [Catalytic activity/Vol] 11 U/L Normal 5-33 [facility] Comment on above: Performed By: #### T ROPI #### [facility] [address] [place], [place] 8211083 Pipeline Operator: Daniella Lott MD Anion gap [Moles/Vol] 9 mmol/L Normal 9-17 [facility] Comment on above: Performed By: #### T ROPI #### [facility] [address] [place] [address] Pipeline Operator: Daniella Lott MD AST [Catalytic activity/Vol] 18 U/L Normal <32 [facility] Comment on above: Performed By: #### T ROPI #### [facility] [address] [place], [place] [id number] Pipeline Operator: Daniella Lott MD Bilirubin [Mass/Vol] 0.5 mg/dL Normal 0.3-1.2 [facility] Comment on above: Performed By: #### T ROPI #### [facility] [address] [place], [place] 5434083 Pipeline Operator: Daniella Lott MD BUN/CRE Ratio 20 Normal 9-20 [facility] Comment on above: Performed By: #### T ROPI #### [facility] [address] [place], [place] 9239583 Pipeline Operator: Daniella Lott MD Calcium [Mass/Vol] 8.7 mg/dL Normal 8.6-10.4 [facility] Comment on above: Performed By: #### T ROPI #### [facility] [address] [place], [place] 0107983 Pipeline Operator: Daniella Lott MD Chloride [Moles/Vol] 108 mmol/L High 98-107 [facility] Comment on above: Performed By: #### T ROPI #### [facility] [address] [place], [place] 6891683 Pipeline Operator: Daniella Lott MD CO2 [Moles/Vol] 25 mmol/L Normal 20-31 [facility] Comment on above: Performed By: #### T ROPI #### [facility] [address] [place], [place] 9068283 Pipeline Operator: Daniella Lott MD Creatinine [Mass/Vol] 1.3 mg/dL High 0.5-0.9 [facility] Comment on above: Performed By: #### T ROPI #### [facility] [address] [place] [address] Pipeline Operator: Daniella Lott MD GFR/1.73 sq M.predicted among non-blacks MDRD (S/P/Bld) [Vol rate/Area] 44 mL/min/{1.73_m2} Low >60 [facility] Comment on above: Result Comment: These results [...] secretion. Performed By: #### T ROPI #### [facility] [address] [place] [address] [place] [address] Pipeline Operator: Daniella Lott MD Glucose [Mass/Vol] 99 mg/dL Normal 70-99 [facility] Comment on above: Performed By: #### T ROPI #### [facility] [address] [place] [address] Dr. [place], [place] 4069083 Pipeline Operator: Daniella Lott MD Potassium [Moles/Vol] 4.5 mmol/L Normal 3.7-5.3 [facility] Comment on above: Performed By: #### T ROPI #### [facility] [address] [place] [address] [place] [address] Pipeline Operator: Daniella Lott MD Protein [Mass/Vol] 6.6 g/dL Normal 6.4-8.3 [facility] Comment on above: Performed By: #### T ROPI #### [facility] [address] [place] [address] [place] [address] Pipeline Operator: Daniella Lott MD Sodium [Moles/Vol] 142 mmol/L Normal 135-144 [facility] Comment on above: Performed By: #### T ROPI #### [facility] [address] [place] [address] [place] [address] Pipeline Operator: Daniella Lott MD Urea nitrogen [Mass/Vol] 26 mg/dL High 8-23 [facility] Comment on above: Performed By: #### T BK #### [facility] [address] [place] [address] Pipeline Operator: Daniella Lott MD [facility] Metabolic Pane [facility] 05-17-2023 Albumin [Mass/Vol] 3.8 g/dL 3.5 - 5.2 g/dL [facility] Albumin/Globulin [Mass ratio] 1.4 {ratio} 1.0 - 2.5 [facility] ALP [Catalytic activity/Vol] 74 U/L 35 - 104 U/L [facility] ALT [Catalytic activity/Vol] 11 U/L 5 - 33 U/L [facility] Anion gap [Moles/Vol] 9 mmol/L 9 - 17 mmol/L [facility] AST [Catalytic activity/Vol] 18 U/L NINF - 32 U/L [facility] Bilirubin [Mass/Vol] 0.5 mg/dL 0.3 - 1.2 mg/dL [facility] Calcium [Mass/Vol] 8.7 mg/dL 8.6 - 10. 4 mg/dL [facility] Chloride [Moles/Vol] 108 mmol/L High 98 - 107 mmol/L [facility] CO2 [Moles/Vol] 25 mmol/L 20 - 31 mmol/L [facility] Creatinine [Mass/Vol] 1.3 mg/dL High 0.5 - 0.9 mg/dL [facility] GFR/1.73 sq M.predicted MDRD (S/P/Bld) [Vol rate/Area] 44 mL/min/{1.73_m2} Low - PINF [facility] Comment on above: These results are [...] [Mass/Vol] 99 mg/dL 70 - 99 mg/dL [facility] Interpretation and review of laboratory results Abnormal [facility] Potassium [Moles/Vol] 4.5 mmol/L 3.7 - 5.3 mmol/L [facility] Protein [Mass/Vol] 6.6 g/dL 6.4 - 8.3 g/dL [facility] Sodium [Moles/Vol] 142 mmol/L 135 - 144 mmol/L [facility] Urea nitrogen [Mass/Vol] 26 mg/dL High 8 - 23 mg/dL [facility] Urea nitrogen/Creatinin e [Mass ratio] 20 mg/mg 9 - 20 [facility] Microscopic Urinalysison Bacteria LM Ql (Urine sed) 2+ Abnormal None [facility] Epithelial cells LM.HPF (Urine sed) [#/Area] 5 TO 10 [facility] Interpretation and review of laboratory results Abnormal [facility] Mucus Ql (Urine sed) TRACE Abnormal None [facility] RBC LM.HPF (Urine sed) [#/Area] 0 TO 2 [facility] Renal Epithelial, UA 0 TO 2 0 /HPF [facility] WBC LM.HPF (Urine sed) [#/Area] 5 TO 10 [facility] Portable XR Chest AP [...] left mid lung, granuloma versus other nodule. [facility] Radiology Study observation (narrative) [facility] Portable XR Chest AP single viewOrdered By: Dacia Linton on 05-17-2023 [facility] Work Phone: Troponinon 05-17-2023 Troponin, High Sens 18 ng/L High 0-14 [facility] Comment on above: Result Comment: High Sensitivity Troponin values cannot be compared with other Troponin methodologies. Performed By: #### T BK, BMP, CDP #### [facility] [address] [place] [address] Pipeline Operator: Daniella Lott MD Interpretation and review of laboratory results Abnormal [facility] Troponin I.cardiac High sensitivity method [Mass/Vol] 18 ng/L High 0 - 14 ng/L [facility] Comment on above: High Sensitivity Tro ponin values cannot be compared with other Troponin methodologies. [facility] Troponin, High Sens 19 ng/L High 0-14 [facility] Comment on above: Result Comment: High Sensitivity Troponin values cannot be compared with other Troponin methodologies. Performed By: #### T ROPI #### [facility] [address] [place] [address] Pipeline Operator: Daniella Lott MD Troponin, High Sens 19 ng/L High 0-14 [facility] Comment on above: Result Comment: High Sensitivity Troponin values cannot be compared with other Troponin methodologies. Performed By: #### T ROPI #### [facility] [address] [place] [address] Pipeline Operator: Daniella Lott MD Interpretation and review of laboratory results Abnormal [facility] Troponin I.cardiac High sensitivity method [Mass/Vol] 19 ng/L High 0 - 14 ng/L [facility] Comment on above: High Sensitivity Tro ponin values cannot be compared with other Troponin methodologies. [facility] Interpretation and review of laboratory results Abnormal [facility] Troponin I.cardiac High sensitivity method [Mass/Vol] 19 ng/L High 0 - 14 ng/L [facility] Comment on above: High Sensitivity Tro ponin values cannot be compared with other Troponin methodologies. [facility] UA w/Reflex Cultureon 2023 Bilirubin, SemiQt,Ur Negative Normal NEG [facility] Comment on above: Performed By: #### T ROPI #### [facility] [address] [place] [address] Pipeline Operator: Daniella Lott MD Blood, Urine Negative Normal NEG [facility] Comment on above: Performed By: #### T ROPI #### [facility] [address] [place] [address] [place] [address] Pipeline Operator: Daniella Lott MD Glucose Ql (U) Negative Normal NEG [facility] Comment on above: Performed By: #### T ROPI #### [facility] [address] [place] [address] Pipeline Operator: Daniella Lott MD Ketones Ql (U) Negative Normal NEG [facility] Comment on above: Performed By: #### T ROPI #### [facility] [address] [place] [address] Pipeline Operator: Daniella Lott MD Nitrite,Ur Negative Normal [facility] Comment on above: Performed By: #### T ROPI #### [facility] [address] [place] [address] Pipeline Operator: Daniella Lott MD PH,Ur 6.0 Normal 5.0-9.0 [facility] Comment on above: Performed By: #### T ROPI #### [facility] [address] [place] [address] Dr. [place], [place] 0169383 Pipeline Operator: Daniella Lott MD Protein Ql (U) Negative Normal NEG [facility] Comment on above: Performed By: #### T ROPI #### [facility] [address] [place] [address] Dr. [place], [place] 0736583 Pipeline Operator: Daniella Lott MD Spec. [place],Ur 1.015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 Comprehensive metabolic panel Arabella Dutton DO Work Phone: Start: 01-28-2023 Ecg routine ecg w/le ast 12 lds i&r only Ayo Paul MD Work Phone: Start: 01-28-2023 Lipid 1996 panel - S kay or Plasma Vielka Pennington APRN.NEUROLOGY EPILEPSY PHYSICIAN Work Phone: Start: 07-28-2022 Ecg routine ecg w/le ast 12 lds i&r only [facility] Start: 11-27-2020 Lipid 1996 panel - S kay or Plasma Risa Warner APRN.NEUROLOGY EPILEPSY PHYSICIAN Work Phone: Start: 09-27-2020 Adult depression scr eening assessment Risa Warner APRN.NEUROLOGY EPILEPSY PHYSICIAN Work Phone: Start: 07-29-2020 Mammography Risa smith APRN.NEUROLOGY EPILEPSY PHYSICIAN Work Phone: Start: 03-28-2019 Colonoscopy Risa smith APRN.NEUROLOGY EPILEPSY PHYSICIAN Work Phone: Plan of Treatment Date Care Activity Detail Author Start: 05-18-2028 Lipid panel Lipid Screening [facility] Start: 01-29-2028 Lipid 1996 panel - Serum or Plasma Lipid Screening [facility] Start: 01-29-2028 Lipid panel Lipid Screening [facility] Start: 04-01-2027 Diabetes Screening Diabetes Screenin g [facility] Start: 01-28-2026 Diabetes Screening Diabetes Screenin g [facility] Start: 11-27-2025 Lipid 1996 panel - Serum or Plasma Lipid Screening [facility] Start: 11-27-2025 LIPID SCREEN LIPID SCREEN [facility] Start: 07-28-2025 DIABETES SCREEN DIABETES SCREEN [facility] Start: 07-28-2025 Diabetes Screening Diabetes Screenin g [facility] Start: 05-29-2024 BP Controlled (<130/80) BP Controlle d (<130/80) [facility] Start: 05-29-2024 Creatinine measurement Serum Creatin ine [facility] Start: 05-25-2024 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 Disease Visit Annual PCP Team Chronic Disease Visit [facility] Start: 05-19-2024 Complete blood count Hemoglobin/Cheo tocart [facility] Start: 05-18-2024 GFR test (Diabetes, CKD 3-4, OR last GFR 15-59) GFR test (Diabetes, CKD 3-4, OR last GFR 15-59) [facility] Start: 05-18-2024 Hepatitis B surface antibody level LDL Cholesterol [facility] Start: 04-25-2024 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 Disease Visit Annual PCP Team Chronic Disease Visit [facility] Start: 03-28-2024 Colonoscopy COLONOSCOPY [facility] Start: 03-28-2024 COLORECTAL CANCER SCREENING COLORECTAL CANCER SCREENING [facility] Start: 03-28-2024 Screening for malign ant neoplasm of colon [facility] Start: 03-14-2024 BP Controlled (<130/80) BP Controlle d (<130/80) [facility] Start: 01-29-2024 BP Controlled (<130/80) BP Controlle d (<130/80) [facility] Start: 01-29-2024 Complete blood count Hemoglobin/Cheo tocrit [facility] Start: 01-29-2024 Creatinine measurement Serum Creatin ine [facility] Start: 01-29-2024 Hemoglobin/Hematocrit Hemoglobin/Hem atocrit [facility] Start: 01-29-2024 Hepatitis B surface antibody level LDL Cholesterol [facility] Start: 01-29-2024 Serum Creatinine Serum Creatinine [facility] Start: 01-15-2024 BP Controlled (<130/80) BP Controlle d (<130/80) [facility] Start: 11-28-2023 DIABETES SCREEN DIABETES SCREEN [facility] Start: 11-16-2023 End: 01-16-2024 25-hydroxyvitamin D3 [Mass/volume] in Serum or Plasma VITAMIN D 25 HYDROXY Lab Routine Benign hypertension with chronic kidney disease, stage III (HCC) Stage 3b chronic kidney disease (HCC) Hyperlipidemia, unspecified hyperlipidemia type Expected: 11/16/2023, Expires: 01/16/2024 [facility] Work Phone: Comment on above: Expected: 11/16/2023 , Expires: 01/16/2024 Start: 11-16-2023 End: 01-16-2024 ALBUMIN/CREAT RATIO RND UR ALBUMIN/CREAT RATIO RND UR Lab Routine Benign hypertension with chronic kidney disease, stage III (HCC) Stage 3b chronic kidney disease (HCC) Hyperlipidemia, unspecified hyperlipidemia type Expected: 11/16/2023, Expires: 01/16/2024 [facility] Work Phone: Comment on above: Expected: 11/16/2023 , Expires: 01/16/2024 Start: 11-16-2023 End: 01-16-2024 CBC panel - Blood by Automated count CBC Lab Routine Benign hypertension with chronic kidney disease, stage III (HCC) Stage 3b chronic kidney disease (HCC) Hyperlipidemia, unspecified hyperlipidemia type Expected: 11/16/2023, Expires: 01/16/2024 [facility] Work Phone: Comment on above: Expected: 11/16/2023 , Expires: 01/16/2024 Start: 11-16-2023 End: 01-16-2024 Creatinine [Mass/volume] in Urine collected for unspecified duration CREATININE RANDOM UR Lab Routine Benign hypertension with chronic kidney disease, stage III (HCC) Stage 3b chronic kidney disease (HCC) Hyperlipidemia, unspecified hyperlipidemia type Expected: 11/16/2023, Expires: 01/16/2024 [facility] Work Phone: Comment on above: Expected: 11/16/2023 , Expires: 01/16/2024 Start: 11-16-2023 End: 01-16-2024 Parathyrin.intact [Mass/volume] in Serum or Plasma PTH INTACT BLD Lab Routine Benign hypertension with chronic kidney disease, stage III (HCC) Stage 3b chronic kidney disease (HCC) Hyperlipidemia, unspecified hyperlipidemia type Expected: 11/16/2023, Expires: 01/16/2024 [facility] Work Phone: Comment on above: Expected: 11/16/2023 , Expires: 01/16/2024 Start: 11-16-2023 End: 01-16-2024 Protein [Mass/volume] in Urine PROTEIN RANDOM UR Lab Routine Benign hypertension with chronic kidney disease, stage III (HCC) Stage 3b chronic kidney disease (HCC) Hyperlipidemia, unspecified hyperlipidemia type Expected: 11/16/2023, Expires: 01/16/2024 [facility] Work Phone: Comment on above: Expected: 11/16/2023 , Expires: 01/16/2024 Start: 11-16-2023 End: 01-16-2024 Renal function 2000 panel - Serum or Plasma RENAL FUNCTION PANEL Lab Routine Benign hypertension with chronic kidney disease, stage III (HCC) Stage 3b chronic kidney disease (HCC) Hyperlipidemia, unspecified hyperlipidemia type Expected: 11/16/2023, Expires: 01/16/2024 [facility] Work Phone: Comment on above: Expected: 11/16/2023 , Expires: 01/16/2024 Start: 10-22-2023 ANNUAL PCP TEAM AUDIO VISUAL PRODUCTION SPECIALIST JEFF DISEASE VISIT ANNUAL PCP TEAM CHRONIC DISEASE VISIT [facility] Start: 10-22-2023 BP CONTROLLED (<130/80) BP CONTROLLE D (<130/80) [facility] Start: 10-22-2023 SHINGRIX VACCINE (1 of 2) SHINGRIX VACCINE (1 of 2) [facility] Comment on above: Postponed from 04/04 (Declined at this time) Start: 10-22-2023 Urine microalbumin profile [facility] Comment on above: Postponed from 06/10 (Declined at this time) Start: 07-29-2023 HEMOGLOBIN/HEMATOCRIT HEMOGLOBIN/HEM ATOCRIT [facility] Start: 07-29-2023 SERUM CREATININE SERUM CREATININE Cl [facility] Start: 07-27-2023 End: 10-26-2023 Basic metabolic 2000 panel - Serum or Plasma BASIC METABOLIC PNL Lab Routine Paroxysmal atrial fibrillation (HCC) Expected: 07/27/2023 (Approximate), Expires: 10/26/2023 [facility] Work Phone: Comment on above: Expected: 07/27/2023 (Approximate), Expires: 10/26/2023 Start: 07-27-2023 End: 10-26-2023 CBC W Auto Differential panel - Blood CBC + DIFF Lab Routine Paroxysmal atrial fibrillation (HCC) Expected: 07/27/2023 (Approximate), Expires: 10/26/2023 [facility] Work Phone: Comment on above: Expected: 07/27/2023 (Approximate), Expires: 10/26/2023 Start: 07-27-2023 End: 10-26-2023 Magnesium [Mass/volume] in Serum or Plasma MAGNESIUM BLD Lab Routine Paroxysmal atrial fibrillation (HCC) Expected: 07/27/2023 (Approximate), Expires: 10/26/2023 [facility] Work Phone: Comment on above: Expected: 07/27/2023 (Approximate), Expires: 10/26/2023 Start: 07-27-2023 End: 02-27-2024 Radiologic exam chest 2 views XR CHEST 2V FRONTAL/LAT Radiology Routine Paroxysmal atrial fibrillation (HCC) Expected: 07/27/2023 (Approximate), Expires: 02/27/2024 [facility] Work Phone: Comment on above: Expected: 07/27/2023 (Approximate), Expires: 02/27/2024 Start: 06-13-2023 End: 09-12-2023 Natriuretic peptide.B prohormone N-Terminal [Mass/volume] in Serum or Plasma NT PRO BNP Lab Routine Paroxysmal atrial fibrillation (HCC) Expected: 06/13/2023, Expires: 09/12/2023 [facility] Work Phone: Comment on above: Expected: 06/13/2023 , Expires: 09/12/2023 Start: 05-17-2023 End: 05-17-2023 Patient education based on identified need [facility] Start: 02-28-2023 Advance Directive Discussion Advance Directive Discussion [facility] Start: 02-28-2023 Annual Wellness Visi t (Medicare Advantage) Annual Wellness Visit (Medicare Advantage) [facility] Start: 02-28-2023 Behavioral Health Screening Behavioral Health Screening [facility] Start: 02-28-2023 Depression Assessment Depression Ass essment [facility] Start: 01-27-2023 End: 03-29-2023 Basic metabolic 2000 panel - Serum or Plasma BASIC METABOLIC PNL Lab Routine Paroxysmal atrial fibrillation (HCC) Hypertension, unspecified type Atherosclerotic peripheral vascular disease with intermittent claudication (HCC) Expected: 01/27/2023, Expires: 03/29/2023 [facility] Work Phone: Comment on above: Expected: 01/27/2023 , Expires: 03/29/2023 Start: 01-27-2023 End: 03-29-2023 CBC W Auto Differential panel - Blood CBC + DIFF Lab Routine Paroxysmal atrial fibrillation (HCC) Hypertension, unspecified type Atherosclerotic peripheral vascular disease with intermittent claudication (HCC) Expected: 01/27/2023, Expires: 03/29/2023 [facility] Work Phone: Comment on above: Expected: 01/27/2023 , Expires: 03/29/2023 Start: 01-27-2023 End: 03-29-2023 Magnesium [Mass/volume] in Serum or Plasma MAGNESIUM BLD Lab Routine Paroxysmal atrial fibrillation (HCC) Hypertension, unspecified type Atherosclerotic peripheral vascular disease with intermittent claudication (HCC) Expected: 01/27/2023, Expires: 03/29/2023 [facility] Work Phone: Comment on above: Expected: 01/27/2023 , Expires: 03/29/2023 Start: 01-26-2023 BP CONTROLLED (<130/80) BP CONTROLLE D (<130/80) [facility] Start: 01-21-2023 End: 03-23-2023 Lipid 1996 panel - Serum or Plasma LIPID PANEL BASIC Lab Routine Coronary artery disease involving [place] coronary artery of [place] heart without angina pectoris Expected: 01/21/2023, Expires: 03/23/2023 [facility] Work Phone: Comment on above: Expected: 01/21/2023 , Expires: 03/23/2023 Start: 11-22-2022 End: 07-29-2023 OUTSIDE VENDOR CARDIAC OUTPATIENT EXTENDED RHYTHM RECORDING (WITHOUT TELEMETRY) OUTSIDE VENDOR CARDIAC OUTPATIENT EXTENDED RHYTHM RECORDING (WITHOUT TELEMETRY) Holter Routine Paroxysmal atrial fibrillation (HCC) Hypertension, unspecified type Atherosclerotic peripheral vascular disease with intermittent claudication (HCC) Expected: 11/22/2022, Expires: 07/29/2023 [facility] Work Phone: Comment on above: Expected: 11/22/2022 , Expires: 07/29/2023 Start: 10-29-2022 Influenza vaccination [facility] Start: 10-26-2022 HEMOGLOBIN/HEMATOCRIT HEMOGLOBIN/HEM ATOCRIT [facility] Start: 10-26-2022 SERUM CREATININE SERUM CREATININE Cl [facility] Start: 10-12-2022 ANNUAL PCP TEAM AUDIO VISUAL PRODUCTION SPECIALIST JEFF DISEASE VISIT ANNUAL PCP TEAM CHRONIC DISEASE VISIT [facility] Start: 07-26-2022 End: 09-25-2022 Basic metabolic 2000 panel - Serum or Plasma BASIC METABOLIC PNL Lab Routine Paroxysmal atrial fibrillation (HCC) History of ST elevation myocardial infarction (STEMI) PAF (paroxysmal atrial fibrillation) (HCC) Expected: 07/26/2022, Expires: 09/25/2022 [facility] Work Phone: Comment on above: Expected: 07/26/2022 , Expires: 09/25/2022 Start: 07-26-2022 End: 09-25-2022 CBC W Auto Differential panel - Blood CBC + DIFF Lab Routine Paroxysmal atrial fibrillation (HCC) History of ST elevation myocardial infarction (STEMI) PAF (paroxysmal atrial fibrillation) (HCC) Expected: 07/26/2022, Expires: 09/25/2022 [facility] Work Phone: Comment on above: Expected: 07/26/2022 , Expires: 09/25/2022 Start: 07-26-2022 End: 09-25-2022 Magnesium [Mass/volume] in Serum or Plasma MAGNESIUM BLD Lab Routine Paroxysmal atrial fibrillation (HCC) History of ST elevation myocardial infarction (STEMI) PAF (paroxysmal atrial fibrillation) (HCC) Expected: 07/26/2022, Expires: 09/25/2022 [facility] Work Phone: Comment on above: Expected: 07/26/2022 , Expires: 09/25/2022 Start: 04-28-2022 End: 01-26-2023 OUTSIDE VENDOR CARDIAC OUTPATIENT EXTENDED RHYTHM RECORDING (WITHOUT TELEMETRY) OUTSIDE VENDOR CARDIAC OUTPATIENT EXTENDED RHYTHM RECORDING (WITHOUT TELEMETRY) Holter Routine Paroxysmal atrial fibrillation (HCC) History of ST elevation myocardial infarction (STEMI) PAF (paroxysmal atrial fibrillation) (HCC) Expected: 04/28/2022, Expires: 01/26/2023 [facility] Work Phone: Comment on above: Expected: 04/28/2022 , Expires: 01/26/2023 Start: 03-23-2022 ANNUAL PCP TEAM AUDIO VISUAL PRODUCTION SPECIALIST JEFF DISEASE VISIT ANNUAL PCP TEAM CHRONIC DISEASE VISIT [facility] Start: 03-23-2022 BP CONTROLLED (<130/80) BP CONTROLLE D (<130/80) [facility] Start: 02-28-2022 ADVANCE DIRECTIVE DISCUSSION ADVANCE DIRECTIVE DISCUSSION [facility] Start: 02-28-2022 DEPRESSION ASSESSMENT DEPRESSION ASS ESSMENT [facility] Start: 02-10-2022 End: 04-12-2022 Lipid 1996 panel - Serum or Plasma LIPID PANEL BASIC Lab Routine Mixed hyperlipidemia Expected: 02/10/2022 (Approximate), Expires: 04/12/2022 [facility] Work Phone: Comment on above: Expected: 02/10/2022 (Approximate), Expires: 04/12/2022 Start: 11-27-2021 Hepatitis B surface antibody level LDL CHOLESTEROL [facility] Start: 11-27-2021 SERUM CREATININE SERUM CREATININE Cl [facility] Start: 10-29-2021 Influenza vaccination INFLUENZA (#1) [facility] Start: 09-27-2021 Adult depression screening assessment DEPRESSION SCREENING [facility] Start: 09-18-2021 COVID-19 VACCINE (#1) COVID-19 VACCI NE (#1) [facility] Comment on above: Postponed from 04/04 (Declined at this time) Start: 09-18-2021 COVID-19 VACCINE (1) COVID-19 VACCIN E (1) [facility] Comment on above: Postponed from 04/04 (Declined at this time) Start: 07-29-2021 Mammography [facility] Start: 07-29-2021 Screening for malign ant neoplasm of breast Mammogram Screening [facility] Start: 07-18-2021 HEMOGLOBIN/HEMATOCRIT HEMOGLOBIN/HEM ATOCRIT [facility] Start: 03-20-2021 BP CONTROLLED (<130/80) BP CONTROLLE D (<130/80) [facility] Start: 02-28-2021 ADVANCE DIRECTIVE DISCUSSION ADVANCE DIRECTIVE DISCUSSION [facility] Start: 02-28-2021 DEPRESSION ASSESSMENT DEPRESSION ASS ESSMENT [facility] Start: 06-10-2016 DTaP/Tdap/Td vaccine (1 - Tdap) DTaP/Tdap/Td vaccine (1 - Tdap) [facility] Start: 06-10-2016 Urine microalbumin profile DTAP,TDAP,TD (1 - Tdap) [facility] Start: 2011 Respiratory Syncytia l Virus (RSV) or age 60 yrs+ (1 - 1-dose 60+ series) Respiratory Syncytial Virus (RSV) or age 60 yrs+ (1 - 1-dose 60+ series) [facility] Start: 2011 RSV Vaccine (1 - 1-d ose 60+ series) RSV Vaccine (1 - 1-dose 60+ series) [facility] Start: 2001 Screening for malign ant neoplasm of breast Breast cancer screen [facility] Start: 2001 Shingles vaccine (1 of 2) Shingles vaccine (1 of 2) [facility] Start: 2001 SHINGRIX VACCINE (1 of 2) SHINGRIX VACCINE (1 of 2) [facility] Start: 1996 COLOGUARD (FIT-DNA) COLOGUARD (FIT-D NA) [facility] Start: [address] COLONOGRAPHY [facility] Start: 1996 FECAL OCCULT BLOOD FECAL OCCULT BLOO D [facility] Start: 1996 Screening for malign ant neoplasm of colon [facility] Start: 1996 [facility] Start: 1969 Hepatitis C screening Hepatitis C sc reen [facility] Start: 1963 Depression Screen Depression Screen [employer] Start: 1961 Lipid panel Lipids [employer]mut[employer] Start: 1951 COVID-19 VACCINE (#1) COVID-19 VACCI NE (#1) [facility] End: 08-24-2023 CBC W Auto Differential panel - Blood CBC auto differential Lab Routine Tomorrow AM for 99 Occurrences starting 05/18/2023 until 08/24/2023, 2 completed [employer] Comment on above: Tomorrow AM for 99 O ccurrences starting 05/18/2023 until 08/24/2023, 2 completed End: 08-24-2023 Comprehensive Metabolic Panel w/ Reflex to MG Comprehensive Metabolic Panel w/ Reflex to MG Lab Routine Tomorrow AM for 99 Occurrences starting 05/18/2023 until 08/24/2023, 2 completed [employer] Comment on above: Tomorrow AM for 99 O ccurrences starting 05/18/2023 until 08/24/2023, 2 completed End: 12-11-2022 Ct orbit sella/post fossa/ear w/o contrast matrl CT TEMP BONES WO IVCON Radiology Routine Pulsatile tinnitus, left ear Lightheadedness 1 Occurrences starting 11/11/2021 until 12/11/2022 [facility] Work Phone: Comment on above: 1 Occurrences starti ng 11/11/2021 until 12/11/2022 End: 05-18-2023 Culture, Urine [employer] Comment on above: One Time for 1 Occur rences starting 05/18/2023 until 05/18/2023 End: 08-11-2022 ECG COMPLETE ECG COMPLETE ECG Routine Paroxysmal atrial fibrillation (HCC) 1 Occurrences starting 08/11/2021 until 08/11/2022 [facility] Work Phone: Comment on above: 1 Occurrences starti ng 08/11/2021 until 08/11/2022 End: 01-26-2023 ECG COMPLETE ECG COMPLETE ECG Routine Paroxysmal atrial fibrillation (HCC) History of ST elevation myocardial infarction (STEMI) PAF (paroxysmal atrial fibrillation) (HCC) 1 Occurrences starting 01/26/2022 until 01/26/2023 [facility] Work Phone: Comment on above: 1 Occurrences starti ng 01/26/2022 until 01/26/2023 End: 07-29-2023 ECG COMPLETE ECG COMPLETE ECG Routine Paroxysmal atrial fibrillation (HCC) Hypertension, unspecified type Atherosclerotic peripheral vascular disease with intermittent claudication (HCC) 1 Occurrences starting 07/28/2022 until 07/29/2023 [facility] Work Phone: Comment on above: 1 Occurrences starti ng 07/28/2022 until 07/29/2023 ECG COMPLETE ECG COMPLETE ECG 01/28/2023 10:20 AM EST [facility] End: 05-18-2023 Echo (TTE) complete (PRN contrast/bubble/strain/ 3D) Echo (TTE) complete (PRN contrast/bubble/strain/3D) CV Echocardiography Routine Chest pain, unspecified type Right sided abdominal pain Coronary artery disease involving [place] coronary artery of [place] heart without angina pectoris Mixed hyperlipidemia Essential hypertension Acute deep vein thrombosis (DVT) of distal vein of right lower extremity (HCC) One Time for 1 Occurrences starting 05/18/2023 until 05/18/2023 [employer] Comment on above: One Time for 1 Occur rences starting 05/18/2023 until 05/18/2023 EKG 12 Lead EKG 12 Lead ECG Routine 05/19/2023 5:18 AM EDT [employer] End: 05-19-2023 Hemoglobin A1c/Hemoglobin.total in Blood Hemoglobin A1C Lab Routine Tomorrow AM for 1 Occurrences starting 05/19/2023 until 05/19/2023 [employer] Comment on above: Tomorrow AM for 1 Oc currences starting 05/19/2023 until 05/19/2023 Hemoglobin A1c/Hemoglobin.total in Blood Hemoglobin A1C Lab Routine 05/19/2023 5:30 AM EDT [employer] End: 05-19-2023 Lipid panel Lipid Panel Lab Routine Tomorrow AM for 1 Occurrences starting 05/19/2023 until 05/19/2023 [employer] Comment on above: Tomorrow AM for 1 Oc currences starting 05/19/2023 until 05/19/2023 Lipid panel Lipid Panel Lab Routine 05/19/2023 5:30 AM EDT [employer] End: 04-02-2023 ESTHER SCREENING ESTHER SCREENING Radiology Routine Encounter for screening mammogram for breast cancer 1 Occurrences starting 03/03/2022 until 04/02/2023 [facility] Work Phone: Comment on above: 1 Occurrences starti ng 03/03/2022 until 04/02/2023 End: 03-03-2024 ESTHER SCREENING ESTHER SCREENING Radiology Routine Encounter for screening mammogram for breast cancer 1 Occurrences starting 02/02/2023 until 03/03/2024 [facility] Work Phone: Comment on above: 1 Occurrences starti ng 02/02/2023 until 03/03/2024 MR Abdomen WO and W contrast IV MRI ABDOMEN W WO CONTRAST MRCP Imaging Routine 05/18/2023 1:05 PM EDT [employer] OUTSIDE VENDOR CARDI AC OUTPATIENT EXTENDED RHYTHM RECORDING (WITHOUT TELEMETRY) OUTSIDE VENDOR CARDIAC OUTPATIENT EXTENDED RHYTHM RECORDING (WITHOUT TELEMETRY) Holter Routine Paroxysmal atrial fibrillation (HCC) Ordered: 06/26/2021 [facility] Work Phone: Comment on above: Ordered: 06/26/2021 OUTSIDE VENDOR CARDI AC OUTPATIENT EXTENDED RHYTHM RECORDING (WITHOUT TELEMETRY) OUTSIDE VENDOR CARDIAC OUTPATIENT EXTENDED RHYTHM RECORDING (WITHOUT TELEMETRY) Holter Routine Paroxysmal atrial fibrillation (HCC) History of ST elevation myocardial infarction (STEMI) PAF (paroxysmal atrial fibrillation) (HCC) Ordered: 01/26/2022 [facility] Work Phone: Comment on above: Ordered: 01/26/2022 OUTSIDE VENDOR CARDI AC OUTPATIENT EXTENDED RHYTHM RECORDING (WITHOUT TELEMETRY) OUTSIDE VENDOR CARDIAC OUTPATIENT EXTENDED RHYTHM RECORDING (WITHOUT TELEMETRY) Holter Routine Paroxysmal atrial fibrillation (HCC) Ordered: 01/28/2023 [facility] Work Phone: Comment on above: Ordered: 01/28/2023 Oxygen therapy [[facility] Data Set] Initiate Oxygen Therapy Protocol Respiratory Care Routine As Needed until discontinued starting 05/17/2023 [facility] [employer] Comment on above: As Needed until disc ontinued starting 05/17/2023 End: 10-30-2022 PVR ANK PRESS [facility] PVR ANK PRESS [facility] Vascular Lab Routine PVD (peripheral vascular disease) (HCC) 1 Occurrences starting 10/30/2021 until 10/30/2022 [facility] Work Phone: Comment on above: 1 Occurrences starti ng 10/30/2021 until 10/30/2022 End: 11-16-2023 PVR ANK PRESS [facility] PVR ANK PRESS [facility] Vascular Lab Routine PVD (peripheral vascular disease) (HCC) Aortoiliac occlusive disease (HCC) Carotid artery stenosis, asymptomatic, bilateral 1 Occurrences starting 11/15/2022 until 11/16/2023 [facility] Work Phone: Comment on above: 1 Occurrences starti ng 11/15/2022 until 11/16/2023 End: 02-25-2023 Radiologic exam chest 2 views XR CHEST 2V FRONTAL/LAT Radiology Routine Paroxysmal atrial fibrillation (HCC) History of ST elevation myocardial infarction (STEMI) PAF (paroxysmal atrial fibrillation) (HCC) 1 Occurrences starting 01/26/2022 until 02/25/2023 [facility] Work Phone: Comment on above: 1 Occurrences starti ng 01/26/2022 until 02/25/2023 End: 01-15-2024 [facility] Audiology Routine Pulsatile tinnitus, left ear 1 Occurrences starting 01/14/2023 until 01/15/2024 [facility] Work Phone: Comment on above: 1 Occurrences starti ng 01/14/2023 until 01/15/2024 End: 11-16-2023 US ABD AORTA COMPLETE [facility] US ABD AORTA COMPLETE [facility] Vascular Lab Routine PVD (peripheral vascular disease) (HCC) Aortoiliac occlusive disease (HCC) Carotid artery stenosis, asymptomatic, bilateral 1 Occurrences starting 11/15/2022 until 11/16/2023 [facility] Work Phone: Comment on above: 1 Occurrences starti ng 11/15/2022 until 11/16/2023 End: 11-16-2023 US CAROTID ARTERIES [facility] US CAROTID ARTERIES [facility] Vascular Lab Routine PVD (peripheral vascular disease) (HCC) Aortoiliac occlusive disease (HCC) Carotid artery stenosis, asymptomatic, bilateral 1 Occurrences starting 11/15/2022 until 11/16/2023 [facility] Work Phone: Comment on above: 1 Occurrences starti ng 11/15/2022 until 11/16/2023 [facility] Immunizations Immunization Date Immunization Notes Care Provider Conor marr 11-27-2020 influenza, high-dose , quadrivalent vaccine (FLUZONE HIGH DOSE QUADRIVALENT) Risa Warner APRN.NEUROLOGY EPILEPSY PHYSICIAN Work Phone: [facility] 11-27-2020 influenza virus vacc ine, unspecified formulation Risa Warner RECONCILIATION ACCOUNTANT.NEUROLOGY EPILEPSY PHYSICIAN Work Phone: [facility] 03-20-2020 influenza, high-dose , quadrivalent vaccine (FLUZONE HIGH DOSE QUADRIVALENT) Risa Warner RECONCILIATION ACCOUNTANT.NEUROLOGY EPILEPSY PHYSICIAN Work Phone: [facility] 12-01-2018 influenza, high dose seasonal, preservative-free Risa Conrado RECONCILIATION ACCOUNTANT.NEUROLOGY EPILEPSY PHYSICIAN Work Phone: [facility] Work Phone: 12-01-2018 pneumococcal polysaccharide vaccine, 23 valent Risa Warner RECONCILIATION ACCOUNTANT.NEUROLOGY EPILEPSY PHYSICIAN Work Phone: [facility] Work Phone: 01-25-2017 influenza, high dose seasonal, preservative-free Risa Conrado RECONCILIATION ACCOUNTANT.NEUROLOGY EPILEPSY PHYSICIAN Work Phone: [facility] 06-09-2016 pneumococcal conjuga te vaccine, 13 valent Risa Warner RECONCILIATION ACCOUNTANT.NEUROLOGY EPILEPSY PHYSICIAN Work Phone: [facility] 06-09-2016 tetanus and diphther ia toxoids, adsorbed, preservative free, for adult use (5 Lf of tetanus toxoid and 2 Lf of diphtheria toxoid) Risa Warner APRN.NEUROLOGY EPILEPSY PHYSICIAN Work Phone: [facility] Payers Date Payer Category Payer Unknown [id number] 2022 Unknown [id number] 2021 Medicare UHC AARP MEDICAR E [facility] AAR MEDICARE O [id number] 2021-Present [phone] [address] [address] [place] [address] O [id number] 2021 Medicare [id number] 2021 Medicare [id number] 2015 Unknown [id number] 1959 Medicare [id number] 1959 Private Health Insurance [id number] 1950 Unknown [id number] 1951 Unknown [id number] 1950 Unknown 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 Diagnosis Paroxysmal atrial fibrillation (HCC)- Primary Atrial fibrillation History of ST elevation myocardial infarction (STEMI) Old myocardial infarction PAF (paroxysmal atrial fibrillation) (HCC) Atrial fibrillation documented in this encounter [facility]* Diagnosis Encounter for screening mammogram for breast cancer documented in this encounter [facility]* Diagnosis Paroxysmal atrial fibrillation (HCC) Atrial fibrillation documented in this encounter [facility]* Diagnosis Paroxysmal atrial fibrillation (HCC)- Primary Atrial fibrillation Hypertension, unspecified type Atherosclerotic peripheral vascular disease with intermittent claudication (HCC) Atherosclerosis of [place] arteries of the extremities with intermittent claudication 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 documented in this encounter [facility] note* Diagnosis Encounter for Medicare annual wellness exam- Primary Routine general medical examination at a health care facility Coronary artery disease involving [place] coronary artery of [place] heart without angina pectoris Mixed hyperlipidemia Paroxysmal atrial fibrillation (HCC) Atrial fibrillation Essential hypertension Unspecified essential hypertension Atherosclerotic peripheral vascular disease with intermittent claudication (HCC) Atherosclerosis of [place] arteries of the extremities with intermittent claudication CKD (chronic kidney disease) stage 4, GFR 15-29 ml/min (HCC) Chronic kidney disease, Stage IV (severe) documented in this encounter [facility] note* Diagnosis Benign hypertension with chronic kidney disease, stage III (HCC)- Primary 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 through stage IV, or unspecified Stage 3b chronic kidney disease (HCC) Hyperlipidemia, unspecified hyperlipidemia type documented in this encounter [facility] note* Diagnosis Carotid artery stenosis, asymptomatic, bilateral- Primary PVD (peripheral vascular disease) ([facility]) Peripheral vascular disease, unspecified 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 documented in this encounter [facility] note* Diagnosis APPOINTMENT CANCELLED- Primary Pulsatile tinnitus, left ear documented in this encounter [facility] note* Diagnosis Essential hypertension Unspecified essential hypertension documented in this encounter [facility] note* Diagnosis Paroxysmal atrial fibrillation (HCC)- Primary Atrial fibrillation 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 documented in this encounter [facility] note* Diagnosis Encounter for screening mammogram for breast cancer documented in this encounter [facility] note* Diagnosis Right sided abdominal pain- Primary Abdominal pain, unspecified site Chest pain, unspecified type Right sided abdominal pain Abdominal pain, unspecified site Coronary artery disease involving [place] coronary artery of [place] heart without angina pectoris Mixed hyperlipidemia Essential hypertension Unspecified essential hypertension Acute deep vein thrombosis (DVT) of distal vein of right lower extremity (HCC) Essential hypertension Unspecified essential hypertension Coronary artery disease involving [place] coronary artery of [place] heart without angina pectoris documented in this encounter [facility] note* Diagnosis Medication management- Primary Encounter for long-term (current) use of other medications documented in this encounter [facility]* Diagnosis Chronic right hip pain- Primary Pain in joint, pelvic region and thigh Spinal stenosis of lumbar region, unspecified whether neurogenic claudication present documented in this encounter [facility]* Diagnosis Paroxysmal atrial fibrillation (HCC)- Primary Atrial fibrillation Acute on chronic heart failure with preserved ejection fraction (HCC) documented in this encounter [facility] illness Narrative History of Present Illness not supported for this document type No History of Present Illness [facility] Work Phone: Patient problem outcome Narrative Includes: Evaluations & Outcomes for active Goals No Outcomes [facility] Work Phone: Reason for referral (narrative)* Outpatient Procedure (Routine) - Closed Specialty Diagnoses / Procedures Referred By Contac t Referred To Contact [facility] [place] Diagnoses Paroxysmal atrial fibrillation (HCC) Procedures ECG COMPLETE ECG ROUTINE ECG W/LEAST 12 LDS W/I&R Rupesh Gu DO [address] [place] [address] [facility] [address] [address] Referral ID Status Reason Start Date Expiration Date V isits Requested Visits Authorized [id number] Closed Auto-Generate d Referral 08/11/2021 08/11/2022 1 1 [facility] for referral (narrative)* Outpatient Procedure (Routine) - Authorized Specialty Diagnoses / Procedures Referred By Contac t Referred To Contact [facility] [place] Diagnoses PVD (peripheral vascular disease) ([facility]) Procedures PVR ANK PRESS LINSEY VAS LAB NON-INVAS PHYSIOLOGIC STD EXTREMITY ART 2 LEVEL Renae German APRN.CNP [address] [place] [address] [facility] [address] [address] Referral ID Status Reason Start Date Expiration Date Visits Requested Visits Authorized [id number] Authorized Auto-Generat ed Referral 10/30/2021 10/30/2022 1 1 [facility] for referral (narrative)* Outpatient Procedure (Routine) - Pending Review Specialty Diagnoses / Procedures Referred By [place] t Referred To Contact [facility] Diagnoses Paroxysmal atrial fibrillation (HCC) History of ST elevation myocardial infarction (STEMI) PAF (paroxysmal atrial fibrillation) (HCC) Procedures ECG COMPLETE ECG ROUTINE ECG W/LEAST 12 LDS W/I&[place] [address] [place] [address] [facility] [address] [address] Referral ID Status Reason Start Date Expiration Date Visits Requested Visits Authorized [id number] Pending Review Auto-Generat ed Referral 2 01/26/2023 1 1 [facility] for referral (narrative)* Diagnostic Procedure Only (Routine) - Pending Review Specialty Diagnoses / Procedures Referred By Manuel t Referred To Contact [facility] Diagnoses Encounter for screening mammogram for breast cancer Procedures ESTHER SCREENING SCREENING MAMMOGRAPHY BI 2-VIEW [place] [address] [place] [address] [facility] [address] [place] [phone] Referral ID Status Reason Start Date Expiration Date Visits Requested Visits Authorized [id number] Pending Review Auto-Generat ed Referral 03/03/2022 04/02/2023 1 1 [facility] for referral (narrative)* Outpatient Procedure (Routine) - Pending Review Specialty Diagnoses / Procedures Referred By Manuel t Referred To Contact [facility] [place] Diagnoses Paroxysmal atrial fibrillation (HCC) Hypertension, unspecified type Atherosclerotic peripheral vascular disease with intermittent claudication (HCC) Procedures ECG COMPLETE ECG ROUTINE ECG W/LEAST 12 LDS W/I&[place] [address] [place] [address] [address] Referral ID Status Reason Start Date Expiration Date Visits Requested Visits Authorized [id number] Pending Review Auto-Generat ed Referral 07/28/2022 07/28/2023 1 1 [facility] for referral (narrative)* Outpatient Procedure (Routine) - Authorized Specialty Diagnoses / Procedures Referred By Contac t Referred To Contact [facility] Diagnoses PVD (peripheral vascular disease) (HCC) Aortoiliac occlusive disease (HCC) Carotid artery stenosis, asymptomatic, bilateral Procedures US ABD AORTA COMPLETE VAS LAB DUP-SCAN AORTA IVC ILIAC VASCL/BPGS COMPLETE Sergo Tucker MD [address] [place], [place] [id number] [address] [address] Referral ID Status Reason Start Date Expiration Date Visits Requested Visits Authorized [id number] Authorized Auto-Generat ed Referral 11/15/2022 11/15/2023 1 1 * Outpatient Procedure (Routine) - Authorized Specialty Diagnoses / Procedures Referred By Contac t Referred To Contact [facility] Diagnoses PVD (peripheral vascular disease) (HCC) Aortoiliac occlusive disease (HCC) Carotid artery stenosis, asymptomatic, bilateral Procedures PVR ANK PRESS [facility] NON-INVAS PHYSIOLOGIC STD EXTREMITY ART 2 LEVEL Sergo Tucker MD [address] [place] [address] [address] Referral ID Status Reason Start Date Expiration Date Visits Requested Visits Authorized [id number] Authorized Auto-Generat ed Referral 11/15/2022 11/15/2023 1 1 * Outpatient Procedure (Routine) - Authorized Specialty Diagnoses / Procedures Referred By Contac t Referred To Contact [facility] [place] Diagnoses PVD (peripheral vascular disease) (HCC) Aortoiliac occlusive disease (HCC) Carotid artery stenosis, asymptomatic, bilateral Procedures US CAROTID ARTERIES [facility] DUPLEX SCAN EXTRACRANIAL ART COMPL BI STUDY Sergo Tucker MD [address] [address] Referral ID Status Reason Start Date Expiration Date Visits Requested Visits Authorized [id number] Authorized Auto-Generat ed Referral 11/15/2022 11/15/2023 1 1 [facility] for referral (narrative)* Outpatient Procedure (Routine) - Pending Review Specialty Diagnoses / Procedures Referred By Contac t Referred To Contact [facility] [place] Diagnoses Paroxysmal atrial fibrillation (HCC) Procedures ECG COMPLETE ECG ROUTINE ECG W/LEAST 12 LDS W/I&[place] [address] [place] [address] [address] Referral ID Status Reason Start Date Expiration Date Visits Requested Visits Authorized [id number] Pending Review Auto-Generat ed Referral 01/28/2023 01/28/2024 1 1 [facility] for referral (narrative)* Diagnostic Procedure Only (Routine) - Pending Review Specialty Diagnoses / Procedures Referred By Manuel rpeston Referred To Contact [facility] Diagnoses Encounter for screening mammogram for breast cancer Procedures ESTHER SCREENING SCREENING MAMMOGRAPHY BI 2-VIEW [place] [address] [place] [address] [facility] [address] [place] [phone] Referral ID Status Reason Start Date Expiration Date Visits Requested Visits Authorized [id number] Pending Review Auto-Generat ed Referral 02/02/2023 03/03/2024 1 1 [facility] for referral (narrative)No Reason for Referral Recorded [facility] Work Phone: Review of systems Narrative - Reported Review of Systems not supported for this document type No [facility]: Summary Purpose Family History No Family History Records FoundNo Family History Records FoundNo Family History Records FoundNo Family History Records FoundNo Family History Records Found Includes: Family History in patient's chart No Family History RecordedNo Family History Records FoundNo Family History Records Found Advance Directives No Advanced Directives Records FoundDocuments on File Type Date Recorded Patient Ed Manager Expl anation Advance Directive(s) 03/28/2019 10:10 AM Advance Directive(s) 07/20/2018 10:43 AM Advance Directive(s) 07/19/2018 7:10 AM Advance Directive(s) 07/14/2018 11:46 AM Advance Directive(s) 06/09/2017 12:41 PM Documents on File Type Date Recorded Patient Ed Manager Expl anation Advance Directive(s) 03/28/2019 10:10 AM Advance Directive(s) 07/20/2018 10:43 AM Advance Directive(s) 07/19/2018 7:10 AM Advance Directive(s) 07/14/2018 11:46 AM Advance Directive(s) 06/09/2017 12:41 PM Documents on File Type Date Recorded Patient Ed Manager Expl anation Advance Directive(s) 07/20/2018 10:43 AM Documents on File Type Date Recorded Patient Ed Manager Expl anation Advance Directive(s) 07/20/2018 10:43 AM Latest Code Status on File Code Status Date Activated Date Inactivated Comments Full Code 05/17/2023 8:05 PM Code Status History Code Status Date Activated Date Inactivated Comments Full Code 08/19/2015 2:04 AM 08/23/2015 3:05 PM Reason for Referral Specialty Diagnoses / Procedures Referred By Contarian t Referred To Contact Diagnoses Tension-type headache, not intractable, unspecified chronicity pattern Tinnitus, unspecified laterality Procedures CONSULT TO HEADACHE CLINIC OFFICE/OUTPATIENT [facility] MDM 60-[place] [address] [place] [address] Referral ID Status Reason Start Date Expiration Date Visits Requested Visits Authorized [id number] Pending Review PCP Requested Referral 10/12/2021 10/12/2022 1 1 Specialty Diagnoses / Procedures Referred By Contac t Referred To Contact Ent - Otolaryngology Diagnoses Tension-type headache, not intractable, unspecified chronicity pattern Tinnitus, unspecified laterality Procedures CONSULT TO ENT OFFICE/OUTPATIENT [facility] MDM 60-[place] [address] [place] [address] Referral ID Status Reason Start Date Expiration Date Visits Requested Visits Authorized [id number] Pending Review PCP Requested Referral 10/12/2021 10/12/2022 1 1 Specialty Diagnoses / Procedures Referred By Contac t Referred To Contact CT IMAGING Diagnoses Pulsatile tinnitus, left ear Lightheadedness Procedures CT TEMP BONES WO IVCON CT ORBIT SELLA/POST FOSSA/EAR W/O CONTRAST Macrina Cobian PA-C [address] [place] [address] Ct Imaging Referral ID Status Reason Start Date Expiration Date Visits Requested Visits Authorized [id number] Authorized Auto-Generat ed Referral 11/11/2021 12/11/2022 1 1 Physical Exam Physical Exam not supported for this document type No Physical Exam Recorded Additional Source Comments INFORMATION SOURCE (unrecogn ized section and content) DATE CREATED AUTHOR 08/24/2017 [facility] DATE CREATED AUTHOR AUTHOR'S ORGANIZ ATION 01/16/2022 [facility] DATE CREATED AUTHOR AUTHOR'S ORGANIZ ATION 02/26/2022 [facility] DATE CREATED AUTHOR AUTHOR'S ORGANIZ ATION 03/14/2023 [facility] DATE CREATED AUTHOR AUTHOR'S ORGANIZ ATION 05/17/2023 [facility] DATE CREATED AUTHOR AUTHOR'S ORGANIZ ATION 05/21/2023 [facility] DATE CREATED AUTHOR AUTHOR'S ORGANIZ ATION 06/04/2023 [facility] Source Comments (unrecognize d section and content) In the event this informatio n is protected by the Federal Confidentiality of Alcohol and Drug Abuse Patient Records regulations: The Federal rules restrict any use of the information to criminally investigate or prosecute any alcohol or drug abuse patient.[facility] the event this information is protected by the Federal Confidentiality of Alcohol and Drug Abuse Patient Records regulations: The Federal rules restrict any use of the information to criminally investigate or prosecute any alcohol or drug abuse patient.[facility] the event this information is protected by the Federal Confidentiality of Alcohol and Drug Abuse Patient Records regulations: The Federal rules restrict any use of the information to criminally investigate or prosecute any alcohol or drug abuse patient.[facility] the event this information is protected by the Federal Confidentiality of Alcohol and Drug Abuse Patient Records regulations: The Federal rules restrict any use of the information to criminally investigate or prosecute any alcohol or drug abuse patient.[facility] the event this information is protected by the Federal Confidentiality of Alcohol and Drug Abuse Patient Records regulations: The Federal rules restrict any use of the information to criminally investigate or prosecute any alcohol or drug abuse patient.[facility]In the event this information is protected by the Federal Confidentiality of Alcohol and Drug Abuse Patient Records regulations: The Federal rules restrict any use of the information to criminally investigate or prosecute any alcohol or drug abuse patient.[facility]In the event this information is protected by the Federal Confidentiality of Alcohol and Drug Abuse Patient Records regulations: The Federal rules restrict any use of the information to criminally investigate or prosecute any alcohol or drug abuse patient.[facility]In the event this information is protected by the Federal Confidentiality of Alcohol and Drug Abuse Patient Records regulations: The Federal rules restrict any use of the information to criminally investigate or prosecute any alcohol or drug abuse patient.[facility]In the event this information is protected by the Federal Confidentiality of Alcohol and Drug Abuse Patient Records regulations: The Federal rules restrict any use of the information to criminally investigate or prosecute any alcohol or drug abuse patient.[facility]In the event this information is protected by the Federal Confidentiality of Alcohol and Drug Abuse Patient Records regulations: The Federal rules restrict any use of the information to criminally investigate or prosecute any alcohol or drug abuse patient.[facility] the event this information is protected by the Federal Confidentiality of Alcohol and Drug Abuse Patient Records regulations: The Federal rules restrict any use of the information to criminally investigate or prosecute any alcohol or drug abuse patient.[facility]In the event this information is protected by the Federal Confidentiality of Alcohol and Drug Abuse Patient Records regulations: The Federal rules restrict any use of the information to criminally investigate or prosecute any alcohol or drug abuse patient.[facility]In the event this information is protected by the Federal Confidentiality of Alcohol and Drug Abuse Patient Records regulations: The Federal rules restrict any use of the information to criminally investigate or prosecute any alcohol or drug abuse patient.[facility]In the event this information is protected by the Federal Confidentiality of Alcohol and Drug Abuse Patient Records regulations: The Federal rules restrict any use of the information to criminally investigate or prosecute any alcohol or drug abuse patient.[facility]In the event this information is protected by the Federal Confidentiality of Alcohol and Drug Abuse Patient Records regulations: The Federal rules restrict any use of the information to criminally investigate or prosecute any alcohol or drug abuse patient.[facility]In the event this information is protected by the Federal Confidentiality of Alcohol and Drug Abuse Patient Records regulations: The Federal rules restrict any use of the information to criminally investigate or prosecute any alcohol or drug abuse patient.[facility]In the event this information is protected by the Federal Confidentiality of Alcohol and Drug Abuse Patient Records regulations: The Federal rules restrict any use of the information to criminally investigate or prosecute any alcohol or drug abuse patient.[facility]In the event this information is protected by the Federal Confidentiality of Alcohol and Drug Abuse Patient Records regulations: The Federal rules restrict any use of the information to criminally investigate or prosecute any alcohol or drug abuse patient.[facility]In the event this information is protected by the Federal Confidentiality of Alcohol and Drug Abuse Patient Records regulations: The Federal rules restrict any use of the information to criminally investigate or prosecute any alcohol or drug abuse patient.[facility]In the event this information is protected by the Federal Confidentiality of Alcohol and Drug Abuse Patient Records regulations: The Federal rules restrict any use of the information to criminally investigate or prosecute any alcohol or drug abuse patient.[facility]In the event this information is protected by the Federal Confidentiality of Alcohol and Drug Abuse Patient Records regulations: The Federal rules restrict any use of the information to criminally investigate or prosecute any alcohol or drug abuse patient.[facility]In the event this information is protected by the Federal Confidentiality of Alcohol and Drug Abuse Patient Records regulations: The Federal rules restrict any use of the information to criminally investigate or prosecute any alcohol or drug abuse patient.[facility]In the event this information is protected by the Federal Confidentiality of Alcohol and Drug Abuse Patient Records regulations: The Federal rules restrict any use of the information to criminally investigate or prosecute any alcohol or drug abuse patient.[facility]In the event this information is protected by the Federal Confidentiality of Alcohol and Drug Abuse Patient Records regulations: The Federal rules restrict any use of the information to criminally investigate or prosecute any alcohol or drug abuse patient.[facility]In the event this information is protected by the Federal Confidentiality of Alcohol and Drug Abuse Patient Records regulations: The Federal rules restrict any use of the information to criminally investigate or prosecute any alcohol or drug abuse patient.[facility]In the event this information is protected by the Federal Confidentiality of Alcohol and Drug Abuse Patient Records regulations: The Federal rules restrict any use of the information to criminally investigate or prosecute any alcohol or drug abuse patient.[facility]In the event this information is protected by the Federal Confidentiality of Alcohol and Drug Abuse Patient Records regulations: The Federal rules restrict any use of the information to criminally investigate or prosecute any alcohol or drug abuse patient.[facility]In the event this information is protected by the Federal Confidentiality of Alcohol and Drug Abuse Patient Records regulations: The Federal rules restrict any use of the information to criminally investigate or prosecute any alcohol or drug abuse patient.[facility]In the event this information is protected by the Federal Confidentiality of Alcohol and Drug Abuse Patient Records regulations: The Federal rules restrict any use of the information to criminally investigate or prosecute any alcohol or drug abuse patient.[facility]In the event this information is protected by the Federal Confidentiality of Alcohol and Drug Abuse Patient Records regulations: The Federal rules restrict any use of the information to criminally investigate or prosecute any alcohol or drug abuse patient.[facility] Reason for Visit (unrecogniz ed section and [...] Referred By Manuel t Referred To Contact Ent - Otolaryngology Diagnoses Tension-type headache, not intractable, unspecified chronicity pattern Tinnitus, unspecified laterality Procedures CONSULT TO ENT OFFICE/OUTPATIENT [facility] MDM 60-[place] [address] [place] [address] Referral ID Status Reason Start Date Expiration Date Visits Requested Visits Authorized [id number] Pending Review PCP Requested Referral 10/12/2021 10/12/2022 1 1 Reason Comments Follow Up Virtual Reason Comments Follow Up Reason Onset Date Comments Population Health Navigation Outreach 12/17/2021 Spouse of [facility] outreach pt Reason Comments F/U 6 Month Reason Onset Date Comments Refill Request 05/26/2022 Reason Comments Follow Up Reason Comments CPE (Medicare) Reason Comments Established Patient Follow Up Reason Onset Date Comments Population Health Navigation Outreach 03/31/2023 [place] [facility] Outreach Reason Comments Chest Pain Sharp stabbing right sided chest pains starting 0300. Took 2 325mg asa when pain started. 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 Given 3 baby asa in office at 1122 and was given one nitro at 1129 with some improvement. Denies any n/v, slightly sob. Specialty Diagnoses / Procedures Referred By Manuel preston Referred To Contact Diagnoses Right sided abdominal pain Luis Estrella MD [address] [facility], [place] [address] [facility] [address] [place] [address] Referral ID Status Reason Start Date Expiration Date Visits Re quested Visits Authorized [id number] 1 1 Reason Comments ER/Urgent Referral Reason Comments Orders [facility] Reason Comments Patient Update Care Teams (unrecognized sec tion and content) Engineer Of System Development Relationship Specialty [place] [address] [place], [place] [id number] PCP - General Internal Medicine 01/30/19 Janey Patricia DO [address] [place] [address] Primary Staff Physician Nephrology 03/26/21 Engineer Of System Development Relationship Specialty Start Date [place] [id number] [place] [address] PCP - General Internal Medicine 01/30/19 Janey Patricia DO [address] [place] [address] Primary Staff Physician Nephrology 03/26/21 Engineer Of System Development Relationship Specialty Start Date End Date Kayla Monterroso [place] [id number] [place] [address] PCP - General Internal Medicine 01/30/19 Janey Patricia DO [address] [place] [address] Primary Staff Physician Nephrology 03/26/21 Engineer Of System Development Relationship Specialty Start Date End Date Kayla Monterroso MD [id number] [place] [address] PCP - General Internal Medicine 01/30/19 Janey Patricia DO [address] [place] [address] Primary Staff Physician Nephrology 03/26/21 Engineer Of System Development Relationship Specialty Start Date End Date Kayla Monterroso MD [id number] [place] [address] PCP - General Internal Medicine 01/30/19 Janey Patricia DO [address] [place] [address] Primary Staff Physician Nephrology 03/26/21 Engineer Of System Development Relationship Specialty Start Date End Date Kayla Monterroso MD [id number] [place] [address] PCP - General Internal Medicine 01/30/19 Janey Patricia DO [address] [place] [address] Primary Staff Physician Nephrology 03/26/21 Engineer Of System Development Relationship Specialty Start Date End Date Kayla Monterroso MD [id number] [place] [address] PCP - General Internal Medicine 01/30/19 Janey Patricia DO [address] [place] [address] Primary Staff Physician Nephrology 03/26/21 Engineer Of System Development Relationship Specialty Start Date End Date Kayla Monterroso MD [id number] [place] [address] PCP - General Internal Medicine 01/30/19 Janey Patricia DO [address] [place] [address] Primary Staff Physician Nephrology 03/26/21 Engineer Of System Development Relationship Specialty Start Date End Date Kayla Monterroso MD [address] [place] [address] PCP - General Internal Medicine 01/30/19 Janey Patricia DO [address] [place] [address] Primary Staff Physician Nephrology 03/26/21 Engineer Of System Development Relationship Specialty Start Date End Date Kayla Monterroso MD [id number] [place] [address] PCP - General Internal Medicine 01/30/19 Janey Patricia DO [address] [place] [address] Primary Staff Physician Nephrology 03/26/21 Engineer Of System Development Relationship Specialty Start [place] [address] [place] [address] PCP - General Internal Medicine 01/30/19 Janey Patricia DO [address] [place] [address] Primary Staff Physician Nephrology 03/26/21 Engineer Of System Development Relationship Specialty Start [place] [address] [place] [address] PCP - General Internal Medicine 01/30/19 Janey Patricia DO [address] [place] [address] Primary Staff Physician Nephrology 03/26/21 Engineer Of System Development Relationship Specialty Start [place] [address] [place] [address] PCP - General Internal Medicine 01/30/19 Janey Patricia DO [address] [place] [address] Primary Staff Physician Nephrology 03/26/21 Engineer Of System Development Relationship Specialty Start Date End Date Kayla Monterroso MD [id number] [place] [address] PCP - General Internal Medicine 01/30/19 Janey Patricia DO [address] [place] [address] Primary Staff Physician Nephrology 03/26/21 Engineer Of System Development Relationship Specialty Start [place] [address] [place] [address] PCP - General Internal Medicine 01/30/19 Janey Patricia DO [address] [place] [address] Primary Staff Physician Nephrology 03/26/21 Engineer Of System Development Relationship Specialty Start [place] [address] [place] [address] PCP - General Internal Medicine 01/30/19 Janey Patricia DO [address] [place] [address] Primary Staff Physician Nephrology 03/26/21 Engineer Of System Development Relationship Specialty Start [place] [address] [place] [address] PCP - General Internal Medicine 01/30/19 Janey Patricia DO [address] [place] [address] Primary Staff Physician Nephrology 03/26/21 Engineer Of System Development Relationship Specialty Start [place] [address] [place] [address] PCP - General Internal Medicine 01/30/19 Janey Patricia DO [address] [place] [address] Primary Staff Physician Nephrology 03/26/21 Engineer Of System Development Relationship Specialty Start [place] [address] [place] [address] PCP - General Internal Medicine 01/30/19 Janey Patricia DO [address] [place] [address] Primary Staff Physician Nephrology 03/26/21 Engineer Of System Development Relationship Specialty Start Date End Date Kayla [place] [address] [place] [address] PCP - General Internal Medicine 01/30/19 Janey Patricia DO [address] [place] [address] Primary Staff Physician Nephrology 03/26/21 Engineer Of System Development Relationship Specialty [place] [address] [place] [address] PCP - General Internal Medicine 01/30/19 Janey Patricia DO [address] [place] [address] Primary Staff Physician Nephrology 03/26/21 Engineer Of System Development Relationship Specialty [place] [address] [place] [address] PCP - General Internal Medicine 05/18/23 Engineer Of System Development Relationship Specialty [place] [address] [place] [address] PCP - General Internal Medicine 01/30/19 Janey Patricia DO [address] [place] [address] Primary Staff Physician Nephrology 03/26/21 Engineer Of System Development Relationship Specialty Start [place] [address] [place] [address] PCP - General Internal Medicine 01/30/19 Janey Patricia DO [address] [place] [address] Primary Staff Physician Nephrology 03/26/21 Engineer Of System Development Relationship Specialty Start [place] [address] [place] [address] PCP - General Internal Medicine 01/30/19 Janey Patricia DO [address] [place] [address] Primary Staff Physician Nephrology 03/26/21 Ordered Prescriptions [...] 200 mg, Oral, DAILY, First dose on Kyeonna 05/19/23 at 0900, Until Discontinued 08 (Given - Provider: Denisse K Donna, RN) carvedilol (COREG) tablet 12.5 mg 12.5 mg, Oral, 2 TIMES DAILY, First dose on Tue05/17/23 at 2100, Until Discontinued, Administer with food to minimize the risk of orthostatic hypotension 2157 (Given - Provider: Alissa Resendiz RN) 1328 (Given - Provider: Yesy Ruano RN)2112 (Given [...] Brown RN) 0819 (Given - Provider: Denisse Thompson RN)1400 (Due)2100 [...] Ruano RN) 0818 (Given - Provider: Denisse Thompson RN) rosuvastatin (CRESTOR) tablet 20 mg 20 mg, [...] Fluid Infusing) 0820 (Given - Provider: Denisse Thompson RN)2100 (Due) Continuous Medication Order 05/17/2023 05/18/2023 05/19/2023 amiodarone (CORDARONE) 450 mg in dextrose 5% 250 mL infusion ()(Linked Group 1) 1 mg/min (33.3333 mL/hr, rounded to 33.3 mL/hr), IntraVENous, CONTINUOUS, Starting on Tue05/18/23 at 1830, Until Tue05/18/23 at 2014, 33.3 ml/hr (1mg/min) x 6hrs. Use in-line filter. 185 (New Bag - Provider: Surekha Brown RN)2014 (Stopped - Provider: Denisse Thompson RN - Comment: stopped by other) amiodarone (CORDARONE) [...] Administer if oral route cannot be used. 234 (See Alternative - Provider: Surekha Brown RN) [...] override 1328 (Given - Provider: Yesy Ruano RN) sterile water injection (COMPLETED) 1 dose, [...] BE BASED ON THE PRIMARY CLINICAL RECORDS. [facility]. provides no warranty or guarantee of the accuracy or completeness of information in this document.
--- NOTE | 2023-06-15 22:41 | ED_ITS ---
HPI - Abdominal Pain General Chief Complaint: Abdominal Pain Stated Complaint: Abdominal Pain Time Seen by Provider: 06/15/23 22:37 Source: patient Mode of arrival: Wheelchair Limitations: no limitations History of Present Illness HPI narrative: patient residing at nursing facility. complained of constipation. Reportedly no BM for one week. call worker person physician was contacted and colace was ordered. Her male partner checked her out of the facility to bring her here. No nausea or vomiting. No urinary symptoms. Feels weak. Denies chest pain or headache Related Data Home Medications ?Medication ?Instructions ?Recorded ?Confirmed doxazosin 2 mg tablet 2 mg PO BID 04/26/23 06/15/23 hydralazine 50 mg tablet 50 mg PO Q8H 04/26/23 06/15/23 rosuvastatin 20 mg tablet 20 mg PO .QHS 04/26/23 06/15/23 pantoprazole 40 mg tablet,delayed 40 mg PO DAILY 05/20/23 06/15/23 release naproxen 250 mg tablet 250 mg PO Q12H 05/26/23 06/15/23 Tums PO QID PRN STOMACH PAIN 06/15/23 acetaminophen 500 mg tablet 500 mg PO Q6H PRN pain 06/15/23 06/15/23 (Tylenol Extra Strength) carvedilol 6.25 mg tablet 3.125 mg PO Q12H 06/15/23 06/15/23 cephalexin 500 mg capsule 500 mg PO BID 06/15/23 06/15/23 ondansetron 4 mg disintegrating 4 mg PO Q8H PRN nausea and vomiting 06/15/23 06/15/23 tablet sennosides 8.6 mg-docusate sodium 2 tab-cap PO BID PRN constipation 06/15/23 06/15/23 50 mg tablet (Docuzen) Previous Rx's ?Medication ?Instructions ?Recorded amiodarone 200 mg tablet (Pacerone) 200 mg PO DAILY 30 days #30 tabs 05/22/23 apixaban 5 mg tablet (Eliquis) 2.5 mg (1/2 x 5 mg) PO BID 30 days 05/22/23 #30 tabs bumetanide 1 mg tablet 1 mg PO Q24H #1 tab 06/06/23 levofloxacin 750 mg tablet 750 mg PO DAILY 5 days #5 tabs 06/06/23 spironolactone 25 mg tablet 12.5 mg (1/2 x 25 mg) PO QD #1 tab 06/06/23 Allergies Allergy/AdvReac Type Severity Reaction Status Date / Time No Known Drug Allergies Allergy Verified 06/15/23 22:40 Review of Systems ROS Status of ROS 10 or more systems reviewed and unremark able except as noted in history and below [facility] Medical History (Updated 06/16/23 @ 01:03 by Robert Humphreys MD) Paroxysmal atrial fibrillation ?I48.0 - Paroxysmal atrial fibrillation (ICD-10) Severe protein-calorie malnutrition ?E43 - Unspecified severe protein-calorie malnutrition (ICD-10) Anemia in CKD (chronic kidney disease) ?N18.9 - Chronic kidney disease, unspecified (ICD-10) ?D63.1 - Anemia in chronic kidney disease (ICD-10) CKD (chronic kidney disease) stage 4, GFR 15-29 ml/min ?N18.4 - Chronic kidney disease, stage 4 (severe) (ICD-10) Acute on chronic heart failure with preserved ejection fraction (HFpEF) ?I50.33 - Acute on chronic diastolic (congestive) heart failure (ICD-10) Weakness generalized ?R53.1 - Weakness (ICD-10) CAD (coronary artery disease), [place] coronary artery ?I25.10 - Atherosclerotic heart disease of [place] coronary artery without angina pectoris (ICD-10) Hypertension ?I10 - Essential (primary) hypertension (ICD-10) Chronic heart failure with preserved ejection fraction (HFpEF) ?I50.32 - Chronic diastolic (congestive) heart failure (ICD-10) Pain, dental ?K08.89 - Other specified disorders of teeth and supporting structures (ICD- 10) Leukocytosis ?D72.829 - Elevated white blood cell count, unspecified (ICD-10) GERD (gastroesophageal reflux disease) ?K21.9 - Gastro-esophageal reflux disease without esophagitis (ICD-10) 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 - Unspecified atherosclerosis of [place] arteries of extremities, unspecified extremity (ICD-10) History of heart attack ?I25.2 - Old myocardial infarction (ICD-10) Abnormal colonoscopy ?R93.3 - Abnormal findings on diagnostic imaging of other parts of digestive tract (ICD-10) Colon polyp ?K63.5 - Polyp of colon (ICD-10) Surgical History H/O tubal ligation ?Z98.51 - Tubal ligation status (ICD-10) Hx of tonsillectomy ?Z90.89 - Acquired absence of other organs (ICD-10) Social History Within the past year, how often did you have a drink containing alcohol: never Score interpretation: A score less than 3 is consistent with normal alcohol consumption. Smoking status: Former smoker Non-prescribed substance use: denies use Previous occupational history: retired Highest level of school completed/degree received: 11th grade Do you think of yourself as: straight/heterosexual Gender Identity: female Exam Constitutional Vital Signs, click to edit/add: Last Vital Signs Temp 98.3 F 06/15/23 22:34 Pulse 68 06/16/23 00:15 Resp 20 06/16/23 00:15 BP 119/51 06/16/23 00:15 Pulse Ox 97 06/16/23 00:15 O2 Del Method Room Air 06/16/23 00:15 Common normals: no apparent distress (appears tired), oriented x3 and well nourished HENMT Common normals: normocephalic and head/scalp atraumatic Eye Common normals: EOMs intact bilaterally and conjunctivae normal Respiratory Common normals: normal respiratory effort, no retractions, no use of accessory muscles and clear to auscultation bilaterally Cardio Common normals: regular rate, regular rhythm, S1 normal heart sound and S2 normal heart sound GI Common normals: Normal to inspection, nondistended, normoactive bowel sounds present and soft to palpation Other: mild tenderness Extremity Common normals: normal to inspection and full ROM Neuro Common normals: oriented x3, moves all extremities and no focal motor deficits Psych Appearance: grossly normal Course Vital Signs Vital signs: Vital Signs Temperature 98.3 F 06/15/23 22:34 Pulse Rate 68 06/15/23 22:34 Respiratory Rate 18 06/15/23 22:34 Blood Pressure 146/89 H 06/15/23 22:34 Pulse Oximetry 94 L 06/15/23 22:34 Oxygen Delivery Method Room Air 06/15/23 22:34 Temperature 98.3 F 04/17/24 22:34 Pulse Rate 68 06/16/23 00:15 Respiratory Rate 20 06/16/23 00:15 Blood Pressure 119/51 06/16/23 00:15 Pulse Oximetry 97 06/16/23 00:15 Oxygen Delivery Method Room Air 06/16/23 00:15 MDM - Abdominal Pain MDM Narrative Medical decision making narrative: patient presents with fatigue and ? of constipation and abdominal pain. exam with mild abdominal tenderness. No guarding. Workup included CT with findings of colitis. labs demonstrate leukocytosis and WILDER. normal lactate. Discussed with the hospitalist and patient accepted for obs admission Lab Data Labs: Lab Results 06/15/23 06/16/23 Range/Units 22:40 00:23 WBC 20.9 H (4.0-11.0) 10^3/uL RBC 4.30 (4.20-5.40) 10^6/uL Hgb 12.8 (12.0-16.0) g/dL Hct 40.2 (36.0-48.0) % MCV 93.5 (81.0-99.0) fL MCH 29.8 (26.7-34.0) pg MCHC 31.8 (29.9-35.2) g/dL RDW 14.8 (11.0-15.0) % Plt Count 331 (150-450) 10^3/uL MPV 9.4 L (9.5-13.5) fL Neut % (Auto) 91.0 H (43.0-75.0) % Lymph % (Auto) 4.3 L (20.5-60.0) % Sharp % (Auto) 3.0 (1.7-12.0) % Eos % (Auto) 0.9 (0.9-7.0) % Baso % (Auto) 0.4 (0.2-2.0) % Neut # (Auto) 19.1 H (1.4-6.5) 10^3/uL Lymph # (Auto) 0.9 L (1.2-3.8) 10^3/uL Sharp # (Auto) 0.6 (0.3-0.8) 10^3/uL Eos # (Auto) 0.2 (0.0-0.7) 10^3/uL Baso # (Auto) 0.1 (0.0-0.1) 10^3/uL Abs Immat Gran (auto) 0.08 H (0.00-0.03) 10^3/uL Imm/Tot Granulo (auto) 0.4 (0.0-0.5) % Sodium 140 (136-145) mmol/L Potassium 3.9 (3.5-5.1) mmol/L Chloride 101 (98-107) mmol/L Carbon Dioxide 27.5 (21.0-32.0) mmol/L Anion Gap 15.4 BUN 64.0 H (7.0-18.0) mg/dL Creatinine 3.37 H (0.55-1.02) mg/dL Est GFR ( Amer) 16 L (>=60) Est GFR (Non-Af Amer) 13 L (>=60) BUN/Creatinine Ratio 19.0 Glucose 156 H (74-106) mg/dL Lactate 1.6 (0.4-2.0) mmol/L Calcium 9.7 (8.5-10.1) mg/dL Total Bilirubin 0.7 (0.2-1.0) mg/dL AST 32 (15-37) U/L ALT 28 (14-59) U/L Alkaline Phosphatase 112 (46-116) U/L Troponin I High Sens 13.2 (4.0-51.3) pg/mL Total Protein 7.0 (6.4-8.2) g/dL Albumin 3.0 L (3.4-5.0) g/dL Globulin 4.0 g/dL Albumin/Globulin Ratio 0.8 Lipase 146.0 H (16.0-77.0) U/L Urine Color Yellow (YELLOW) Urine Clarity Clear (CLEAR) Urine pH 5.5 (5.0-9.0) Ur Specific [place] 1.025 (1.005-1.025) Urine Protein Trace (NEG/TRACE) mg/dL Urine Glucose (UA) Negative (NEGATIVE) mg/dL Urine Ketones Negative (NEGATIVE) mg/dL Urine Occult Blood Negative (NEGATIVE) Urine Nitrite Negative (NEGATIVE) Urine Bilirubin Negative (NEGATIVE) Urine Urobilinogen 0.2 (0.2-1.0) EU/dL Ur Leukocyte Esterase Negative (NEGATIVE) Imaging Data Abdominal x-ray: Radiologist's impression: ITS Impressions Abdomen/Pelvis CT 06/15/23 22:45 IMPRESSION: 1. Mild colitis of the mid-distal colon; possible inflammatory bowel disease. No obstruction. 2. Sigmoid diverticulosis without convincing acute diverticulitis. 3. Additional chronic changes detailed above. Electronically authenticated by: LAVERNE KENYON Date: 06/16/2023 00:34 Discharge Plan Discharge Chief Complaint: Abdominal Pain Clinical Impression: Acute kidney injury, Colitis Patient Disposition: Admitted as Observation
--- NOTE | 2023-06-15 22:45 | CT_ITS ---
[address] [address] Patient Name: NEELAM VIRAMONTES MRN: [id number] date: 1950 Sex: F Assigned Patient Location: ER Current Patient Location: ER Accession/Order Number: [id number] Exam Date: 06/15/2023 23:55 Report Date: 06/16/2023 00:34 At the request of: FREDDY FRIAS Procedure: CT abdomen pelvis wo con EXAMINATION: CT abdomen pelvis wo con HISTORY: abdominal pain , constipation COMPARISON: CT abdomen pelvis 06/01/2023 TECHNIQUE: Axial, Coronal, and Sagittal images were obtained without and/or with IV contrast as indicated by examination type. Dose reduction techniques were achieved by using automated exposure control and/or adjustment of mA and/or kV according to patient size and/or use of iterative reconstruction technique. FINDINGS: LUNG BASES: No visible pulmonary or pleural disease. LIVER: No enlargement, atrophy, suspicious density, or significant focal lesion. BILIARY: No dilatation or calcification. PANCREAS: No lesion, fluid collection, or abnormal duct dilatation. SPLEEN: No enlargement or focal lesion. ADRENALS: No mass or enlargement. KIDNEYS: No mass, obstruction, or calcification. BOWEL/MESENTERY: Fluid-filled transverse and descending colon. Scattered areas of mild circumferential wall thickening of distal half of the colon. Multiple diverticula involving sigmoid colon. Mild inflammatory changes of the pericolonic fat of the proximal descending and at the descending-sigmoid colon junction. No visible mass, obstruction, or bowel wall thickening. AORTA/VASCULAR: Mild fusiform dilation of infrarenal aorta, 2.6 cm in diameter. Atherosclerotic disease of distal aorta. Endovascular stent within right common iliac artery. RETROPERITONEUM: No mass or adenopathy. LYMPH NODES: No adenopathy. URINARY BLADDER: No visible focal wall thickening, lesion, or calculus. PELVIC ORGANS: No visible mass. Pelvic organs appropriate for patient age. ABDOMINAL WALL: Small fat filled right inguinal hernia without strangulation. BONES: No bone lesion or acute fracture. Prior compression fractures and vertebroplasty of T10, 11, and 12. OTHER: Negative. CT/CT abdomen pelvis wo con IMPRESSION: 1. Mild colitis of the mid-distal colon; possible inflammatory bowel disease. No obstruction. 2. Sigmoid diverticulosis without convincing acute diverticulitis. 3. Additional chronic changes detailed above. Electronically authenticated by: LAVERNE KENYON Date: 06/16/2023 00:34
[2023-06-15 22:50] LABS: Basophils Absolute Auto 0.1 10^3/uL (0.0-0.1); Basophils Percent Auto 0.4 % (0.2-2.0); Eosinophils Absolute Auto 0.2 10^3/uL (0.0-0.7); Eosinophils Percent Auto 0.9 % (0.9-7.0); Hematocrit 40.2 % (36.0-48.0); Hemoglobin 12.8 g/dL (12.0-16.0); Immature Granulocytes Abs Auto 0.08 10^3/uL (0.00-0.03); Immature Granulocytes Pct Auto 0.4 % (0.0-0.5); Lymphocytes Absolute Auto 0.9 10^3/uL (1.2-3.8); Lymphocytes Percent Auto 4.3 % (20.5-60.0); Mean Corpuscular HGB Conc 31.8 g/dL (29.9-35.2); Mean Corpuscular Hemoglobin 29.8 pg (26.7-34.0); Mean Corpuscular Volume 93.5 fL (81.0-99.0); Mean Platelet Volume 9.4 fL (9.5-13.5); Monocytes Absolute Auto 0.6 10^3/uL (0.3-0.8); Neutrophils Absolute Auto 19.1 10^3/uL (1.4-6.5); Platelet Count 331 10^3/uL (150-450); Red Cell Distribution Width 14.8 % (11.0-15.0); White Blood Count 20.9 10^3/uL (4.0-11.0)
[2023-06-15] MEDS: 0.9 % SODIUM CHLORIDE 1,000 ML 999 ML IV (22:52)
[2023-06-15 23:06] LABS: Lactate/Lactic Acid 1.6 mmol/L (0.4-2.0)
[2023-06-15 23:07] LABS: Alanine Aminotransferase 28 U/L (14-59); Albumin Globulin Ratio 0.8; Alkaline Phosphatase 112 U/L (46-116); Anion Gap 15.4; Aspartate Amino Transferase 32 U/L (15-37); Bilirubin Total 0.7 mg/dL (0.2-1.0); Calcium 9.7 mg/dL (8.5-10.1); Carbon Dioxide 27.5 mmol/L (21.0-32.0); Chloride 101 mmol/L (98-107); Estimated GFR (African America 16 (>=60); Estimated GFR (Non-African Ame 13 (>=60); Glucose 156 mg/dL (74-106); Potassium 3.9 mmol/L (3.5-5.1); Sodium 140 mmol/L (136-145); Troponin I High Sensitivity 13.2 pg/mL (4.0-51.3)
[2023-06-15] MEDS: ONDANSETRON PF 4 MG/2 ML VIAL IV (23:48)
[2023-06-16] VITALS (21 sets, daily range): BP systolic 83–125; BP diastolic 43–78; PULSE 59–72; TEMP 36.4–37; O2SAT 90–97; BMI 22.2
[2023-06-16 00:37] LABS: Bilirubin Urine NEGATIVE (NEGATIVE); Blood Urine NEGATIVE (NEGATIVE); Clarity Urine CLEAR (CLEAR); Color Urine YELLOW (YELLOW); Glucose Urine UA NEGATIVE (NEGATIVE); Ketones Urine NEGATIVE (NEGATIVE); Leukocyte Esterase Urine NEGATIVE (NEGATIVE); Nitrite Urine NEGATIVE (NEGATIVE); Protein Urine TRACE mg/dL (NEG/TRACE); Specific Gravity Urine 1.025 (1.005-1.025); Urine Microscopic Indicated NO; Urobilinogen Urine 0.2 EU/dL (0.2-1.0); pH Urine 5.5 (5.0-9.0)
--- NOTE | 2023-06-16 01:04 | PC.NURSE ---
[facility] in [place] called with update.
--- OUTSIDE RECORDS SUMMARY | 2023-06-16 01:13 | XMS_ITS | CCD ---
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 By: #### T ROPI #### [facility] [address] [place], [place] [id number] Radial Saw Operator: Daniella Lott MD MCH (RBC) [Entitic mass] 31.6 pg Normal 25.2-33.5 [facility] Comment on above: Performed By: #### T ROPI #### [facility] [address] [place], [place] [id number] Radial Saw Operator: Daniella Lott MD MCHC (RBC) [Mass/Vol] 32.1 g/dL Normal 28.4-34.8 [facility] Comment on above: Performed By: #### T ROPI #### [address] [place], [facility] Radial Saw Operator: Daniella Lott MD MCV (RBC) [Entitic vol] 98.4 fL Normal 82.6-102.9 [facility] Comment on above: Performed By: #### T ROPI #### [address] [place], [facility] Radial Saw Operator: Daniella Lott MD Monocytes (Bld) [#/Vol] 0.65 10*3/uL Normal 0.10-1.20 [facility] Comment on above: Performed By: #### T ROPI #### [address] [place], [facility] Radial Saw Operator: Daniella Lott MD Monocytes/100 WBC (Bld) 11 % Normal 3-12 [facility] Comment on above: Performed By: #### T ROPI #### [facility] [address] [place] [address] Dr. [place], [facility] Radial Saw Operator: Daniella Lott MD Neutrophil (Seg) 60 % Normal 36-65 [facility] Comment on above: Performed By: #### T ROPI #### [facility] [address] [place] [address] Dr. [place], [facility]83 Radial Saw Operator: Daniella Lott MD NRBC Automated 0.0 per 100 WBC Normal 0.0 [facility] Comment on above: Performed By: #### T ROPI #### [facility] [address] [place], [place] 1768283 Radial Saw Operator: Daniella Lott MD Platelet mean volume (Bld) [Entitic vol] 10.1 fL Normal 8.1-13.5 [facility] Comment on above: Performed By: #### T ROPI #### [facility] [address] [place], [place] 3408883 Radial Saw Operator: Daniella Lott MD Platelets (Bld) [#/Vol] 138 10*3/uL Normal 138-453 [facility] Comment on above: Performed By: #### T ROPI #### [facility] [address] [place], [place] 1021383 Radial Saw Operator: Daniella Lott MD RBC (Bld) [#/Vol] 3.20 10*6/uL Low 3.95-5.11 [facility] Comment on above: Performed By: #### T ROPI #### [facility] [address] [place], [place] 477[address]83 Radial Saw Operator: Daniella Lott MD WBC (Bld) [#/Vol] 5.8 10*3/uL Normal 3.5-11.3 [facility] Comment on above: Performed By: #### T ROPI #### [facility] [address] [place], [place] [id number] Radial Saw Operator: Daniella Lott MD Comp Metabolic Pr/rfx MGon 0 05-18-2023 Albumin [Mass/Vol] 3.1 g/dL Low 3.5-5.2 [facility] Comment on above: Performed By: #### T ROPI #### [facility] [address] [place] [address] Radial Saw Operator: Daniella Lott MD Albumin/Glob Ratio 1.3 Normal 1.0-2.5 [facility] Comment on above: Performed By: #### T ROPI #### [facility] [address] [place], [place] 1933083 Radial Saw Operator: Daniella Lott MD Alkaline Phos 58 U/L Normal 35-104 [facility] Comment on above: Performed By: #### T ROPI #### [facility] [address] [place], [place] 1322683 Radial Saw Operator: Daniella Lott MD ALT [Catalytic activity/Vol] 5 U/L Normal 5-33 [facility] Comment on above: Performed By: #### T ROPI #### [facility] [address] [place], [place] 67[address]883 Radial Saw Operator: Daniella Lott MD Anion gap [Moles/Vol] 10 mmol/L Normal 9-17 [facility] Comment on above: Performed By: #### T ROPI #### [facility] [address] [place], [place] 1997483 Radial Saw Operator: Daniella Lott MD AST [Catalytic activity/Vol] 13 U/L Normal <32 [facility] Comment on above: Performed By: #### T ROPI #### [facility] [address] [place], [place] 799[address]83 Radial Saw Operator: Daniella Lott MD Bilirubin [Mass/Vol] 0.6 mg/dL Normal 0.3-1.2 [facility] Comment on above: Performed By: #### T ROPI #### [facility] [address] [place], [place] 5342283 Radial Saw Operator: Daniella Lott MD BUN/CRE Ratio 18 Normal 9-20 [facility] Comment on above: Performed By: #### T ROPI #### [facility] [address] [place], [place] 6[address]83 Radial Saw Operator: Daniella Lott MD Calcium [Mass/Vol] 8.0 mg/dL Low 8.6-10.4 [facility] Comment on above: Performed By: #### T ROPI #### [facility] [address] [place] [address] Radial Saw Operator: Daniella Lott MD Chloride [Moles/Vol] 104 mmol/L Normal 98-107 [facility] Comment on above: Performed By: #### T ROPI #### [facility] [address] [place] [address] Radial Saw Operator: Daniella Lott MD CO2 [Moles/Vol] 22 mmol/L Normal 20-31 [facility] Comment on above: Performed By: #### T ROPI #### [facility] [address] [place], [place] [address]83 Radial Saw Operator: Daniella Lott MD Creatinine [Mass/Vol] 1.3 mg/dL High 0.5-0.9 [facility] Comment on above: Performed By: #### T ROPI #### [facility] [address] [place] [address] Radial Saw Operator: Daniella Lott MD GFR/1.73 sq M.predicted among non-blacks MDRD (S/P/Bld) [Vol rate/Area] 44 mL/min/{1.73_m2} Low >60 [facility] Comment on above: Result Comment: These [...] secretion. Performed By: #### T ROPI #### [facility] [address] [place] [address] Radial Saw Operator: Daniella Lott MD Glucose [Mass/Vol] 83 mg/dL Normal 70-99 [facility] Comment on above: Performed By: #### T ROPI #### [facility] [address] [place] [address] Radial Saw Operator: Daniella Lott MD Potassium [Moles/Vol] 4.1 mmol/L Normal 3.7-5.3 [facility] Comment on above: Performed By: #### T ROPI #### [facility] [address] [place], [place] 1151483 Radial Saw Operator: Daniella Lott MD Protein [Mass/Vol] 5.4 g/dL Low 6.4-8.3 [facility] Comment on above: Performed By: #### T ROPI #### [facility] [address] [place], [place] 4163583 Radial Saw Operator: Daniella Lott MD Sodium [Moles/Vol] 136 mmol/L Normal 135-144 [facility] Comment on above: Performed By: #### T ROPI #### [facility] [address] [place], [place] [address]83 Radial Saw Operator: Daniella Lott MD Urea nitrogen [Mass/Vol] 23 mg/dL Normal 8-23 [facility] Comment on above: Performed By: #### T ROPI #### [address] [place] [address] Radial Saw Operator: Daniella Lott MD Comprehensive Metabolic Pane l w/ Reflex to MGon 05-18-2023 Albumin [Mass/Vol] 3.1 g/dL Low 3.5 - 5.2 g/dL [facility] Albumin/Globulin [Mass ratio] 1.3 {ratio} 1.0 - 2.5 [facility] ALP [Catalytic activity/Vol] 58 U/L 35 - 104 U/L [facility] ALT [Catalytic activity/Vol] 5 U/L 5 - 33 U/L [facility] Anion gap [Moles/Vol] 10 mmol/L 9 - 17 mmol/L [facility] AST [Catalytic activity/Vol] 13 U/L [facility] - 32 U/L [facility] Bilirubin [Mass/Vol] 0.6 mg/dL 0.3 - 1.2 mg/dL [facility] Calcium [Mass/Vol] 8.0 mg/dL Low 8.6 - 10. 4 mg/dL [facility] Chloride [Moles/Vol] 104 mmol/L 98 - 107 mmol/L [facility] CO2 [Moles/Vol] 22 mmol/L 20 - 31 mmol/L [facility] Creatinine [Mass/Vol] 1.3 mg/dL High 0.5 - 0.9 mg/dL [facility] GFR/1.73 sq M.predicted MDRD (S/P/Bld) [Vol rate/Area] 44 mL/min/{1.73_m2} Low - [place] [facility] Comment on above: These results are not [...] [Mass/Vol] 83 mg/dL 70 - 99 mg/dL [facility] Interpretation and review of laboratory results Abnormal [facility] Potassium [Moles/Vol] 4.1 mmol/L 3.7 - 5.3 mmol/L [facility] Protein [Mass/Vol] 5.4 g/dL Low 6.4 - 8.3 g/dL [facility] Sodium [Moles/Vol] 136 mmol/L 135 - 144 mmol/L [facility] Urea nitrogen [Mass/Vol] 23 mg/dL 8 - 23 mg/dL [facility] Urea nitrogen/Creatinin e [Mass ratio] 18 mg/mg 9 - 20 [facility] EKG 12 LeadOrdered By: Adam Silvestre on 05-18-2023 Atrial Rate 58 BPM [facility] Work Phone: P [place] 69 degrees [facility] Work Phone: P-R Interval 140 ms [facility] Work Phone: Q-T Interval 418 ms [facility] Work Phone: QRS Duration 82 ms [facility] Work Phone: QTc Calculation (Bazett) 410 ms [facility] Work Phone: R [place] 43 degrees [facility] Work Phone: T [place] 54 degrees [facility] Work Phone: Ventricular Rate 58 BPM [facility] Work Phone: [facility] Work Phone: EKG 12 Leadon 05-18-2023 Sinus bradycardia Otherwise normal ECG No previous ECGs available Confirmed by LAVERNE SILVESTRE ([id number]) on 05/18/2023 1:01:51 AM [facility] Laverne Silvestre MD - 05/18/2023 Sinus bradycardia Otherwise normal ECG No previous ECGs available Confirmed by LAVERNE SILVESTRE ([id number]) on 05/18/2023 1:01:51 AM [facility] Atrial Rate 75 BPM [facility] P [place] 91 degrees [facility] P-R Interval 154 ms [facility] Q-T Interval 380 ms [facility] QRS Duration 86 ms [facility] QTc Calculation (Bazett) 424 ms [facility] R [place] 38 degrees [facility] T [place] 50 degrees [facility] Ventricular Rate 75 BPM [facility] Normal sinus rhythm Normal ECG When compared with ECG of 17-MAY-2023 11:52, (unconfirmed) No significant change was found Confirmed by LAVERNE SILVESTRE ([id number]) on 05/18/2023 12:57:09 AM [facility] Laverne Silvestre MD - 05/18/2023 Normal sinus rhythm Normal ECG When compared with ECG of 17-MAY-2023 11:52, (unconfirmed) No significant change was found Confirmed by LAVERNE SILVESTRE ([id number]) on 05/18/2023 12:57:09 AM [facility] EKG Rhythm Stripon [facility] CBC with Auto Differentialon 05-17-2023 Basophils (Bld) [#/Vol] 0.03 10*3/uL [facility] Immature granulocytes (Bld) [#/Vol] [facility] Interpretation and review of laboratory results Abnormal [facility] Lymphocytes/100 WBC (Bld) 1.23 % [facility] Monocytes/100 WBC (Bld) 0.57 % [facility] Neutrophils/100 WBC (Bld) 75 % High 36 - 65 % [facility] Nucleated RBC/100 WBC (Bld) [Ratio] 0.0 % 0.0 per 100 WBC [facility] Segmented neutrophils/100 WBC (Bld) 5.64 % [facility] WBC other (Bld) [#/Vol] 7.6 [facility] CBC with Diffon 05-17-2023 Abs. Basophil 0.03 k/uL Normal 0.00-0.20 [facility] Comment on above: Performed By: #### T ROPI #### [facility] [address] [place] [address] [place] [address] Radial Saw Operator: Daniella Lott MD Abs.Imm.Granulocyt e <0.03 Normal 0.00-0.30 [facility] Comment on above: Performed By: #### T ROPI #### [facility] [address] [place] [address] [place] [address] Radial Saw Operator: Daniella Lott MD Abs.Neutrophil (Seg) 5.64 k/uL Normal 1.50-8.10 [facility] Comment on above: Performed By: #### T ROPI #### [facility] [address] [place] [address] Dr. [place] [id number] Radial Saw Operator: Daniella Lott MD Lymphocytes (Bld) [#/Vol] 1.23 10*3/uL Normal 1.10-3.70 [facility] Comment on above: Performed By: #### T ROPI #### [facility] [address] [place], [place] 3234583 Radial Saw Operator: Daniella Lott MD Monocytes (Bld) [#/Vol] 0.57 10*3/uL Normal 0.10-1.20 [facility] Comment on above: Performed By: #### T ROPI #### [facility] [address] [place] [address] Radial Saw Operator: Daniella Lott MD Neutrophil (Seg) 75 % High 36-65 [facility] Comment on above: Performed By: #### T ROPI #### [address] [place], [facility] Radial Saw Operator: Daniella Lott MD NRBC Automated 0.0 per 100 WBC Normal 0.0 [facility] Comment on above: Performed By: #### T ROPI #### [address] [place], [facility] Radial Saw Operator: Daniella Lott MD WBC (Bld) [#/Vol] 7.6 10*3/uL Normal 3.5-11.3 [facility] Comment on above: Performed By: #### T ROPI #### [facility] [address] [place], [place] [id number] Radial Saw Operator: Daniella Lott MD Basophils/100 WBC (Bld) 0 % Normal 0-2 [facility] Comment on above: Performed By: #### T ROPI #### [facility] [address] [place], [place] 3066583 Radial Saw Operator: Daniella Lott MD Eosinophils (Bld) [#/Vol] 0.11 10*3/uL Normal 0.00-0.44 [facility] Comment on above: Performed By: #### T ROPI #### [address] [place] [address]2583 Radial Saw Operator: Daniella Lott MD Eosinophils/100 WBC (Bld) 1 % Normal 1-4 [facility] Comment on above: Performed By: #### T ROPI #### [address] [place] [address]2583 Radial Saw Operator: Daniella Lott MD Erythrocyte distribution width (RBC) [Ratio] 13.7 % Normal 11.8-14.4 [facility] Comment on above: Performed By: #### T ROPI #### [address] [place] [address]2583 Radial Saw Operator: Daniella Lott MD Hematocrit (Bld) [Volume fraction] 38.1 % Normal 36.3-47.1 [facility] Comment on above: Performed By: #### T ROPI #### [address] [place] [address]2583 Radial Saw Operator: Daniella Lott MD Hemoglobin (Bld) [Mass/Vol] 11.8 g/dL Low 11.9-15.1 [facility] Comment on above: Performed By: #### T ROPI #### [address] [place] [address]2583 Radial Saw Operator: Daniella Lott MD Immature granulocytes/100 WBC (Bld) 0 % Normal 0 [facility] Comment on above: Performed By: #### T ROPI #### [address] [place] [address] Radial Saw Operator: Daniella Lott MD Lymphocytes/100 WBC (Bld) 16 % Low 24-43 [facility] Comment on above: Performed By: #### T ROPI #### [address] [place], [place] 623[address]83 Radial Saw Operator: Daniella Lott MD MCH (RBC) [Entitic mass] 30.6 pg Normal 25.2-33.5 [facility] Comment on above: Performed By: #### T ROPI #### [address] [place], [facility] Radial Saw Operator: Daniella Lott MD MCHC (RBC) [Mass/Vol] 31.0 g/dL Normal 28.4-34.8 [facility] Comment on above: Performed By: #### T ROPI #### [address] [place], [facility] Radial Saw Operator: Daniella Lott MD MCV (RBC) [Entitic vol] 99.0 fL Normal 82.6-102.9 [facility] Comment on above: Performed By: #### T ROPI #### [address] [place], [facility] Radial Saw Operator: Daniella Lott MD Monocytes/100 WBC (Bld) 8 % Normal 3-12 [facility] Comment on above: Performed By: #### T ROPI #### [address] [place], [facility] Radial Saw Operator: Daniella Lott MD Platelet mean volume (Bld) [Entitic vol] 9.5 fL Normal 8.1-13.5 [facility] Comment on above: Performed By: #### T ROPI #### [address] [place], [facility] Radial Saw Operator: Daniella Lott MD Platelets (Bld) [#/Vol] 169 10*3/uL Normal 138-453 [facility] Comment on above: Performed By: #### T ROPI #### [address] [place], [facility] Radial Saw Operator: Daniella Lott MD RBC (Bld) [#/Vol] 3.85 10*6/uL Low 3.95-5.11 [facility] Comment on above: Performed By: #### T ROPI #### [facility] [address] [place] [address] Radial Saw Operator: Daniella Lott MD CTA CHEST ABDOMEN [...] Treviño MD 05/17/23 Final result Normal [facility] CTA Chest vessels and Abdomi nal [...] Further evaluation with pelvic ultrasound is recommended. [facility] RIS CONSOLIDATED EXAMINATION: CTA OF THE CHEST, [...] superficial soft tissues show no acute process. [facility] Faisal Julian MD - 05/17/2023 EXAMINATION: [...] Further evaluation with pelvic ultrasound is recommended. [facility] Radiology Study observation (narrative) [facility] CTA Chest vessels and Abdomi nal vessels and Pelvis vessels W contrast IVOrdered By: Faisal Treviño on 05-17-2023 [facility] Work Phone: Comp Metabolic Profon 2023 Albumin [Mass/Vol] 3.8 g/dL Normal 3.5-5.2 [facility] Comment on above: Performed By: #### T ROPI #### [facility] [address] [place] [address] Radial Saw Operator: Daniella Lott MD Albumin/Glob Ratio 1.4 Normal 1.0-2.5 [facility] Comment on above: Performed By: #### T ROPI #### [facility] [address] [place], [place] 75[address]383 Radial Saw Operator: Daniella Lott MD Alkaline Phos 74 U/L Normal 35-104 [facility] Comment on above: Performed By: #### T ROPI #### [facility] [address] [place], [place] 3774883 Radial Saw Operator: Daniella Lott MD ALT [Catalytic activity/Vol] 11 U/L Normal 5-33 [facility] Comment on above: Performed By: #### T ROPI #### [facility] [address] [place], [place] 8669683 Radial Saw Operator: Daniella Lott MD Anion gap [Moles/Vol] 9 mmol/L Normal 9-17 [facility] Comment on above: Performed By: #### T ROPI #### [facility] [address] [place] [address] Radial Saw Operator: Daniella Lott MD AST [Catalytic activity/Vol] 18 U/L Normal <32 [facility] Comment on above: Performed By: #### T ROPI #### [facility] [address] [place], [place] [id number] Radial Saw Operator: Daniella Lott MD Bilirubin [Mass/Vol] 0.5 mg/dL Normal 0.3-1.2 [facility] Comment on above: Performed By: #### T ROPI #### [facility] [address] [place], [place] 8835783 Radial Saw Operator: Daniella Lott MD BUN/CRE Ratio 20 Normal 9-20 [facility] Comment on above: Performed By: #### T ROPI #### [facility] [address] [place], [place] 33[address]83 Radial Saw Operator: Daniella Lott MD Calcium [Mass/Vol] 8.7 mg/dL Normal 8.6-10.4 [facility] Comment on above: Performed By: #### T ROPI #### [facility] [address] [place], [place] 4278683 Radial Saw Operator: Daniella Lott MD Chloride [Moles/Vol] 108 mmol/L High 98-107 [facility] Comment on above: Performed By: #### T ROPI #### [facility] [address] [place], [place] 683[address]83 Radial Saw Operator: Daniella Lott MD CO2 [Moles/Vol] 25 mmol/L Normal 20-31 [facility] Comment on above: Performed By: #### T ROPI #### [facility] [address] [place], [place] 6845183 Radial Saw Operator: Daniella Lott MD Creatinine [Mass/Vol] 1.3 mg/dL High 0.5-0.9 [facility] Comment on above: Performed By: #### T ROPI #### [facility] [address] [place] [address] Radial Saw Operator: Daniella Lott MD GFR/1.73 sq M.predicted among non-blacks MDRD (S/P/Bld) [Vol rate/Area] 44 mL/min/{1.73_m2} Low >60 [facility] Comment on above: Result Comment: These [...] secretion. Performed By: #### T ROPI #### [facility] [address] [place] [address] [place] [address] Radial Saw Operator: Daniella Lott MD Glucose [Mass/Vol] 99 mg/dL Normal 70-99 [facility] Comment on above: Performed By: #### T ROPI #### [facility] [address] [place] [address] Dr. [place], [place] 6846183 Radial Saw Operator: Daniella Lott MD Potassium [Moles/Vol] 4.5 mmol/L Normal 3.7-5.3 [facility] Comment on above: Performed By: #### T ROPI #### [facility] [address] [place] [address] [place] [address] Radial Saw Operator: Daniella Lott MD Protein [Mass/Vol] 6.6 g/dL Normal 6.4-8.3 [facility] Comment on above: Performed By: #### T ROPI #### [facility] [address] [place] [address] [place] [address] Radial Saw Operator: Daniella Lott MD Sodium [Moles/Vol] 142 mmol/L Normal 135-144 [facility] Comment on above: Performed By: #### T ROPI #### [facility] [address] [place] [address] [place] [address] Radial Saw Operator: Daniella Lott MD Urea nitrogen [Mass/Vol] 26 mg/dL High 8-23 [facility] Comment on above: Performed By: #### T BK #### [facility] [address] [place] [address] Radial Saw Operator: Daniella Lott MD [facility] Metabolic [facility] 05-17-2023 Albumin [Mass/Vol] 3.8 g/dL 3.5 - 5.2 g/dL [facility] Albumin/Globulin [Mass ratio] 1.4 {ratio} 1.0 - 2.5 [facility] ALP [Catalytic activity/Vol] 74 U/L 35 - 104 U/L [facility] ALT [Catalytic activity/Vol] 11 U/L 5 - 33 U/L [facility] Anion gap [Moles/Vol] 9 mmol/L 9 - 17 mmol/L [facility] AST [Catalytic activity/Vol] 18 U/L NINF - 32 U/L [facility] Bilirubin [Mass/Vol] 0.5 mg/dL 0.3 - 1.2 mg/dL [facility] Calcium [Mass/Vol] 8.7 mg/dL 8.6 - 10. 4 mg/dL [facility] Chloride [Moles/Vol] 108 mmol/L High 98 - 107 mmol/L [facility] CO2 [Moles/Vol] 25 mmol/L 20 - 31 mmol/L [facility] Creatinine [Mass/Vol] 1.3 mg/dL High 0.5 - 0.9 mg/dL [facility] GFR/1.73 sq M.predicted MDRD (S/P/Bld) [Vol rate/Area] 44 mL/min/{1.73_m2} Low - PINF [facility] Comment on above: These results are not [...] [Mass/Vol] 99 mg/dL 70 - 99 mg/dL [facility] Interpretation and review of laboratory results Abnormal [facility] Potassium [Moles/Vol] 4.5 mmol/L 3.7 - 5.3 mmol/L [facility] Protein [Mass/Vol] 6.6 g/dL 6.4 - 8.3 g/dL [facility] Sodium [Moles/Vol] 142 mmol/L 135 - 144 mmol/L [facility] Urea nitrogen [Mass/Vol] 26 mg/dL High 8 - 23 mg/dL [facility] Urea nitrogen/Creatinin e [Mass ratio] 20 mg/mg 9 - 20 [facility] Microscopic Urinalysison Bacteria LM Ql (Urine sed) 2+ Abnormal None [facility] Epithelial cells LM.HPF (Urine sed) [#/Area] 5 TO 10 [facility] Interpretation and review of laboratory results Abnormal [facility] Mucus Ql (Urine sed) TRACE Abnormal None [facility] RBC LM.HPF (Urine sed) [#/Area] 0 TO 2 [facility] Renal Epithelial, UA 0 TO 2 0 /HPF [facility] WBC LM.HPF (Urine sed) [#/Area] 5 TO 10 [facility] Portable XR Chest AP single viewon [...] left mid lung, granuloma versus other nodule. [facility] Radiology Study observation (narrative) [facility] Portable XR Chest AP single viewOrdered By: Dacia Linton on 05-17-2023 [facility] Work Phone: Troponinon 05-17-2023 Troponin, High Sens 18 ng/L High 0-14 [facility] Comment on above: Result Comment: High Sensitivity Troponin values cannot be compared with other Troponin methodologies. Performed By: #### T BK, BMP, CDP #### [facility] [address] [place] [address] Radial Saw Operator: Daniella Lott MD Interpretation and review of laboratory results Abnormal [facility] Troponin I.cardiac High sensitivity method [Mass/Vol] 18 ng/L High 0 - 14 ng/L [facility] Comment on above: High Sensitivity Tro ponin values cannot be compared with other Troponin methodologies. [facility] Troponin, High Sens 19 ng/L High 0-14 [facility] Comment on above: Result Comment: High Sensitivity Troponin values cannot be compared with other Troponin methodologies. Performed By: #### T ROPI #### [facility] [address] [place] [address] Radial Saw Operator: Daniella Lott MD Troponin, High Sens 19 ng/L High 0-14 [facility] Comment on above: Result Comment: High Sensitivity Troponin values cannot be compared with other Troponin methodologies. Performed By: #### T ROPI #### [facility] [address] [place] [address] Radial Saw Operator: Daniella Lott MD Interpretation and review of laboratory results Abnormal [facility] Troponin I.cardiac High sensitivity method [Mass/Vol] 19 ng/L High 0 - 14 ng/L [facility] Comment on above: High Sensitivity Tro ponin values cannot be compared with other Troponin methodologies. [facility] Interpretation and review of laboratory results Abnormal [facility] Troponin I.cardiac High sensitivity method [Mass/Vol] 19 ng/L High 0 - 14 ng/L [facility] Comment on above: High Sensitivity Tro ponin values cannot be compared with other Troponin methodologies. [facility] UA w/Reflex Cultureon 2023 Bilirubin, SemiQt,Ur Negative Normal NEG [facility] Comment on above: Performed By: #### T ROPI #### [facility] [address] [place] [address] Radial Saw Operator: Daniella Lott MD Blood, Urine Negative Normal NEG [facility] Comment on above: Performed By: #### T ROPI #### [facility] [address] [place] [address] [place] [address] Radial Saw Operator: Daniella Lott MD Glucose Ql (U) Negative Normal NEG [facility] Comment on above: Performed By: #### T ROPI #### [facility] [address] [place] [address] Radial Saw Operator: Daniella Lott MD Ketones Ql (U) Negative Normal NEG [facility] Comment on above: Performed By: #### T ROPI #### [facility] [address] [place] [address] Radial Saw Operator: Daniella Lott MD Nitrite,Ur Negative Normal [facility] Comment on above: Performed By: #### T ROPI #### [facility] [address] [place] [address] Radial Saw Operator: Daniella Lott MD PH,Ur 6.0 Normal 5.0-9.0 [facility] Comment on above: Performed By: #### T ROPI #### [facility] [address] [place] [address] Dr. [place], [place] 2520683 Radial Saw Operator: Daniella Lott MD Protein Ql (U) Negative Normal NEG [facility] Comment on above: Performed By: #### T ROPI #### [facility] [address] [place] [address] Dr. [place], [place] 8017183 Radial Saw Operator: Daniella Lott MD Spec. Steedman,Ur 1.015 Normal 1.010-1.[address] [facility] Comment on above: Performed By: #### T ROPI #### [address] [place], [place] 5714183 Radial Saw Operator: Daniella Lott MD Urobilinogen,Ur Normal Normal 0.0-1.0 [facility] Comment on above: Performed By: #### T ROPI #### [address] [place], [place] 9[address]83 Radial Saw Operator: Daniella Lott MD Clarity (U) Clear Normal [facility]AR [facility] Comment on above: Performed By: #### T ROPI #### [address] [place], [place] 6299383 Radial Saw Operator: Daniella Lott MD Color (U) Yellow Normal YEL [facility] Comment on above: Performed By: #### T ROPI #### [address] [place], [place] 2138883 Radial Saw Operator: Daniella Lott MD Leukocyte esterase Test strip Ql (U) SMALL Abnormal NEG [facility] Comment on above: Performed By: #### T ROPI #### [facility] [address] [place], [place] 5070383 Radial Saw Operator: Daniella Lott MD US GALLBLADDER RUQon [...] Treviño MD 05/17/23 Final result Normal [facility] US Gallbladderon 05-17-2023 1. Dilated common [...] No evidence of right upper quadrant ascites. [facility] Faisal Hollis MD - 05/17/2023 EXAMINATION: RIGHT [...] cm exophytic cyst upper pole right kidney. [facility] Radiology Study observation (narrative) [facility] Urinalysis with Reflex to Cu ltureon 05-17-2023 Bilirubin Ql (U) Negative [facility]IVE [facility] Glucose Test strip (U) [Mass/Vol] Negative NEGATIVE mg/dL [facility] Hemoglobin Auto test strip Ql (U) Negative NEGATIVE [facility] Interpretation and review of laboratory results Abnormal [facility] Ketones (U) [Mass/Vol] Negative NEGATIVE mg/dL [facility] Nitrite Ql (U) Negative NEGATIVE [facility]MA [facility] pH (U) 6.0 [pH] 5.0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 disease (HCC) Hyperlipidemia, unspecified hyperlipidemia type Expected: 11/16/2023, Expires: 01/16/2024 [facility] Work Phone: Comment on above: Expected: 11/16/2023 , Expires: 01/16/2024 Start: 11-16-2023 End: 01-16-2024 Creatinine [Mass/volume] in Urine collected for unspecified duration CREATININE RANDOM UR Lab Routine Benign hypertension with chronic kidney disease, stage III (HCC) Stage 3b chronic kidney disease (HCC) Hyperlipidemia, unspecified hyperlipidemia type Expected: 11/16/2023, Expires: 01/16/2024 [facility] Work Phone: Comment on above: Expected: 11/16/2023 , Expires: 01/16/2024 Start: 11-16-2023 End: 01-16-2024 Parathyrin.intact [Mass/volume] in Serum or Plasma PTH INTACT BLD Lab Routine Benign hypertension with chronic kidney disease, stage III (HCC) Stage 3b chronic kidney disease (HCC) Hyperlipidemia, unspecified hyperlipidemia type Expected: 11/16/2023, Expires: 01/16/2024 [facility] Work Phone: Comment on above: Expected: 11/16/2023 , Expires: 01/16/2024 Start: 11-16-2023 End: 01-16-2024 Protein [Mass/volume] in Urine PROTEIN RANDOM UR Lab Routine Benign hypertension with chronic kidney disease, stage III (HCC) Stage 3b chronic kidney disease (HCC) Hyperlipidemia, unspecified hyperlipidemia type Expected: 11/16/2023, Expires: 01/16/2024 [facility] Work Phone: Comment on above: Expected: 11/16/2023 , Expires: 01/16/2024 Start: 11-16-2023 End: 01-16-2024 Renal function 2000 panel - Serum or Plasma RENAL FUNCTION PANEL Lab Routine Benign hypertension with chronic kidney disease, stage III (HCC) Stage 3b chronic kidney disease (HCC) Hyperlipidemia, unspecified hyperlipidemia type Expected: 11/16/2023, Expires: 01/16/2024 [facility] Work Phone: Comment on above: Expected: 11/16/2023 , Expires: 01/16/2024 Start: 10-22-2023 ANNUAL PCP TEAM HAT AND CAP PARTS CUTTER HAND JEFF DISEASE VISIT ANNUAL PCP TEAM CHRONIC DISEASE VISIT [facility] Start: 10-22-2023 BP CONTROLLED (<130/80) BP CONTROLLE D (<130/80) [facility] Start: 10-22-2023 SHINGRIX VACCINE (1 of 2) SHINGRIX VACCINE (1 of 2) [facility] Comment on above: Postponed from 04/04 (Declined at this time) Start: 10-22-2023 Urine microalbumin profile [facility] Comment on above: Postponed from 06/10 (Declined at this time) Start: 07-29-2023 HEMOGLOBIN/HEMATOCRIT HEMOGLOBIN/HEM ATOCRIT [facility] Start: 07-29-2023 SERUM CREATININE SERUM CREATININE Cl [facility] Start: 07-27-2023 End: 10-26-2023 Basic metabolic 2000 panel - Serum or Plasma BASIC METABOLIC PNL Lab Routine Paroxysmal atrial fibrillation (HCC) Expected: 07/27/2023 (Approximate), Expires: 10/26/2023 [facility] Work Phone: Comment on above: Expected: 07/27/2023 (Approximate), Expires: 10/26/2023 Start: 07-27-2023 End: 10-26-2023 CBC W Auto Differential panel - Blood CBC + DIFF Lab Routine Paroxysmal atrial fibrillation (HCC) Expected: 07/27/2023 (Approximate), Expires: 10/26/2023 [facility] Work Phone: Comment on above: Expected: 07/27/2023 (Approximate), Expires: 10/26/2023 Start: 07-27-2023 End: 10-26-2023 Magnesium [Mass/volume] in Serum or Plasma MAGNESIUM BLD Lab Routine Paroxysmal atrial fibrillation (HCC) Expected: 07/27/2023 (Approximate), Expires: 10/26/2023 [facility] Work Phone: Comment on above: Expected: 07/27/2023 (Approximate), Expires: 10/26/2023 Start: 07-27-2023 End: 02-27-2024 Radiologic exam chest 2 views XR CHEST 2V FRONTAL/LAT Radiology Routine Paroxysmal atrial fibrillation (HCC) Expected: 07/27/2023 (Approximate), Expires: 02/27/2024 [facility] Work Phone: Comment on above: Expected: 07/27/2023 (Approximate), Expires: 02/27/2024 Start: 06-13-2023 End: 09-12-2023 Natriuretic peptide.B prohormone N-Terminal [Mass/volume] in Serum or Plasma NT PRO BNP Lab Routine Paroxysmal atrial fibrillation (HCC) Expected: 06/13/2023, Expires: 09/12/2023 [facility] Work Phone: Comment on above: Expected: 06/13/2023 , Expires: 09/12/2023 Start: 05-17-2023 End: 05-17-2023 Patient education based on identified need [facility] Start: 02-28-2023 Advance Directive Discussion Advance Directive Discussion [facility] Start: 02-28-2023 Annual Wellness Visi t (Medicare Advantage) Annual Wellness Visit (Medicare Advantage) [facility] Start: 02-28-2023 Behavioral Health Screening Behavioral Health Screening [facility] Start: 02-28-2023 Depression Assessment Depression Ass essment [facility] Start: 01-27-2023 End: 03-29-2023 Basic metabolic 2000 panel - Serum or Plasma BASIC METABOLIC PNL Lab Routine Paroxysmal atrial fibrillation (HCC) Hypertension, unspecified type Atherosclerotic peripheral vascular disease with intermittent claudication (HCC) Expected: 01/27/2023, Expires: 03/29/2023 [facility] Work Phone: Comment on above: Expected: 01/27/2023 , Expires: 03/29/2023 Start: 01-27-2023 End: 03-29-2023 CBC W Auto Differential panel - Blood CBC + DIFF Lab Routine Paroxysmal atrial fibrillation (HCC) Hypertension, unspecified type Atherosclerotic peripheral vascular disease with intermittent claudication (HCC) Expected: 01/27/2023, Expires: 03/29/2023 [facility] Work Phone: Comment on above: Expected: 01/27/2023 , Expires: 03/29/2023 Start: 01-27-2023 End: 03-29-2023 Magnesium [Mass/volume] in Serum or Plasma MAGNESIUM BLD Lab Routine Paroxysmal atrial fibrillation (HCC) Hypertension, unspecified type Atherosclerotic peripheral vascular disease with intermittent claudication (HCC) Expected: 01/27/2023, Expires: 03/29/2023 [facility] Work Phone: Comment on above: Expected: 01/27/2023 , Expires: 03/29/2023 Start: 01-26-2023 BP CONTROLLED (<130/80) BP CONTROLLE D (<130/80) [facility] Start: 01-21-2023 End: 03-23-2023 Lipid 1996 panel - Serum or Plasma LIPID PANEL BASIC Lab Routine 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 Expected: 01/21/2023, Expires: 03/23/2023 [facility] Work Phone: Comment on above: Expected: 01/21/2023 , Expires: 03/23/2023 Start: 11-22-2022 End: 07-29-2023 OUTSIDE VENDOR CARDIAC OUTPATIENT EXTENDED RHYTHM RECORDING (WITHOUT TELEMETRY) OUTSIDE VENDOR CARDIAC OUTPATIENT EXTENDED RHYTHM RECORDING (WITHOUT TELEMETRY) Holter Routine Paroxysmal atrial fibrillation (HCC) Hypertension, unspecified type Atherosclerotic peripheral vascular disease with intermittent claudication (HCC) Expected: 11/22/2022, Expires: 07/29/2023 [facility] Work Phone: Comment on above: Expected: 11/22/2022 , Expires: 07/29/2023 Start: 10-29-2022 Influenza vaccination [facility] Start: 10-26-2022 HEMOGLOBIN/HEMATOCRIT HEMOGLOBIN/HEM ATOCRIT [facility] Start: 10-26-2022 SERUM CREATININE SERUM CREATININE Cl [facility] Start: 10-12-2022 ANNUAL PCP TEAM HAT AND CAP PARTS CUTTER HAND JEFF DISEASE VISIT ANNUAL PCP TEAM CHRONIC DISEASE VISIT [facility] Start: 07-26-2022 End: 09-25-2022 Basic metabolic 2000 panel - Serum or Plasma BASIC METABOLIC PNL Lab Routine Paroxysmal atrial fibrillation (HCC) History of ST elevation myocardial infarction (STEMI) PAF (paroxysmal atrial fibrillation) (HCC) Expected: 07/26/2022, Expires: 09/25/2022 [facility] Work Phone: Comment on above: Expected: 07/26/2022 , Expires: 09/25/2022 Start: 07-26-2022 End: 09-25-2022 CBC W Auto Differential panel - Blood CBC + DIFF Lab Routine Paroxysmal atrial fibrillation (HCC) History of ST elevation myocardial infarction (STEMI) PAF (paroxysmal atrial fibrillation) (HCC) Expected: 07/26/2022, Expires: 09/25/2022 [facility] Work Phone: Comment on above: Expected: 07/26/2022 , Expires: 09/25/2022 Start: 07-26-2022 End: 09-25-2022 Magnesium [Mass/volume] in Serum or Plasma MAGNESIUM BLD Lab Routine Paroxysmal atrial fibrillation (HCC) History of ST elevation myocardial infarction (STEMI) PAF (paroxysmal atrial fibrillation) (HCC) Expected: 07/26/2022, Expires: 09/25/2022 [facility] Work Phone: Comment on above: Expected: 07/26/2022 , Expires: 09/25/2022 Start: 04-28-2022 End: 01-26-2023 OUTSIDE VENDOR CARDIAC OUTPATIENT EXTENDED RHYTHM RECORDING (WITHOUT TELEMETRY) OUTSIDE VENDOR CARDIAC OUTPATIENT EXTENDED RHYTHM RECORDING (WITHOUT TELEMETRY) Holter Routine Paroxysmal atrial fibrillation (HCC) History of ST elevation myocardial infarction (STEMI) PAF (paroxysmal atrial fibrillation) (HCC) Expected: 04/28/2022, Expires: 01/26/2023 [facility] Work Phone: Comment on above: Expected: 04/28/2022 , Expires: 01/26/2023 Start: 03-23-2022 ANNUAL PCP TEAM HAT AND CAP PARTS CUTTER HAND JEFF DISEASE VISIT ANNUAL PCP TEAM CHRONIC DISEASE VISIT [facility] Start: 03-23-2022 BP CONTROLLED (<130/80) BP CONTROLLE D (<130/80) [facility] Start: 02-28-2022 ADVANCE DIRECTIVE DISCUSSION ADVANCE DIRECTIVE DISCUSSION [facility] Start: 02-28-2022 DEPRESSION ASSESSMENT DEPRESSION ASS ESSMENT [facility] Start: 02-10-2022 End: 04-12-2022 Lipid 1996 panel - Serum or Plasma LIPID PANEL BASIC Lab Routine Mixed hyperlipidemia Expected: 02/10/2022 (Approximate), Expires: 04/12/2022 [facility] Work Phone: Comment on above: Expected: 02/10/2022 (Approximate), Expires: 04/12/2022 Start: 11-27-2021 Hepatitis B surface antibody level LDL CHOLESTEROL [facility] Start: 11-27-2021 SERUM CREATININE SERUM CREATININE Cl [facility] Start: 10-29-2021 Influenza vaccination INFLUENZA (#1) [facility] Start: 09-27-2021 Adult depression screening assessment DEPRESSION SCREENING [facility] Start: 09-18-2021 COVID-19 VACCINE (#1) COVID-19 VACCI NE (#1) [facility] Comment on above: Postponed from 04/04 (Declined at this time) Start: 09-18-2021 COVID-19 VACCINE (1) COVID-19 VACCIN E (1) [facility] Comment on above: Postponed from 04/04 (Declined at this time) Start: 07-29-2021 Mammography [facility] Start: 07-29-2021 Screening for malign ant neoplasm of breast Mammogram Screening [facility] Start: 07-18-2021 HEMOGLOBIN/HEMATOCRIT HEMOGLOBIN/HEM ATOCRIT [facility] Start: 03-20-2021 BP CONTROLLED (<130/80) BP CONTROLLE D (<130/80) [facility] Start: 02-28-2021 ADVANCE DIRECTIVE DISCUSSION ADVANCE DIRECTIVE DISCUSSION [facility] Start: 02-28-2021 DEPRESSION ASSESSMENT DEPRESSION ASS ESSMENT [facility] Start: 06-10-2016 DTaP/Tdap/Td vaccine (1 - Tdap) DTaP/Tdap/Td vaccine (1 - Tdap) [facility] Start: 06-10-2016 Urine microalbumin profile DTAP,TDAP,TD (1 - Tdap) [facility] Start: 2011 Respiratory Syncytia l Virus (RSV) or age 60 yrs+ (1 - 1-dose 60+ series) Respiratory Syncytial Virus (RSV) or age 60 yrs+ (1 - 1-dose 60+ series) [facility] Start: 2011 RSV Vaccine (1 - 1-d ose 60+ series) RSV Vaccine (1 - 1-dose 60+ series) [facility] Start: 2001 Screening for malign ant neoplasm of breast Breast cancer screen [facility] Start: 2001 Shingles vaccine (1 of 2) Shingles vaccine (1 of 2) [facility] Start: 2001 SHINGRIX VACCINE (1 of 2) SHINGRIX VACCINE (1 of 2) [facility] Start: 1996 COLOGUARD (FIT-DNA) COLOGUARD (FIT-D NA) [facility] Start: [address] COLONOGRAPHY [facility] Start: 1996 FECAL OCCULT BLOOD FECAL OCCULT BLOO D [facility] Start: 1996 Screening for malign ant neoplasm of colon [facility] Start: 1996 [facility] Start: 1969 Hepatitis C screening Hepatitis C sc reen [facility] Start: 1963 Depression Screen Depression Screen [facility] Start: 1961 Lipid panel Lipids [facility] Start: 1951 COVID-19 VACCINE (#1) COVID-19 VACCI NE (#1) [facility] End: 08-24-2023 CBC W Auto Differential panel - Blood CBC auto differential Lab Routine Tomorrow AM for 99 Occurrences starting 05/18/2023 until 08/24/2023, 2 completed [facility] Comment on above: Tomorrow AM for 99 O ccurrences starting 05/18/2023 until 08/24/2023, 2 completed End: 08-24-2023 Comprehensive Metabolic Panel w/ Reflex to MG Comprehensive Metabolic Panel w/ Reflex to MG Lab Routine Tomorrow AM for 99 Occurrences starting 05/18/2023 until 08/24/2023, 2 completed [facility] Comment on above: Tomorrow AM for 99 O ccurrences starting 05/18/2023 until 08/24/2023, 2 completed End: 12-11-2022 Ct orbit sella/post fossa/ear w/o contrast matrl CT TEMP BONES WO IVCON Radiology Routine Pulsatile tinnitus, left ear Lightheadedness 1 Occurrences starting 11/11/2021 until 12/11/2022 [facility] Work Phone: Comment on above: 1 Occurrences starti ng 11/11/2021 until 12/11/2022 End: 05-18-2023 Culture, Urine [facility] Comment on above: One Time for 1 Occur rences starting 05/18/2023 until 05/18/2023 End: 08-11-2022 ECG COMPLETE ECG COMPLETE ECG Routine Paroxysmal atrial fibrillation (HCC) 1 Occurrences starting 08/11/2021 until 08/11/2022 [facility] Work Phone: Comment on above: 1 Occurrences starti ng 08/11/2021 until 08/11/2022 End: 01-26-2023 ECG COMPLETE ECG COMPLETE ECG Routine Paroxysmal atrial fibrillation (HCC) History of ST elevation myocardial infarction (STEMI) PAF (paroxysmal atrial fibrillation) (HCC) 1 Occurrences starting 01/26/2022 until 01/26/2023 [facility] Work Phone: Comment on above: 1 Occurrences starti ng 01/26/2022 until 01/26/2023 End: 07-29-2023 ECG COMPLETE ECG COMPLETE ECG Routine Paroxysmal atrial fibrillation (HCC) Hypertension, unspecified type Atherosclerotic peripheral vascular disease with intermittent claudication (HCC) 1 Occurrences starting 07/28/2022 until 07/29/2023 [facility] Work Phone: Comment on above: 1 Occurrences starti ng 07/28/2022 until 07/29/2023 ECG COMPLETE ECG COMPLETE ECG 01/28/2023 10:20 AM EST [facility] End: 05-18-2023 Echo (TTE) complete (PRN contrast/bubble/strain/ 3D) Echo (TTE) complete (PRN contrast/bubble/strain/3D) CV Echocardiography Routine Chest pain, unspecified type Right sided abdominal pain 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 Mixed hyperlipidemia Essential hypertension Acute deep vein thrombosis (DVT) of distal vein of right lower extremity (HCC) One Time for 1 Occurrences starting 05/18/2023 until 05/18/2023 [facility] Comment on above: One Time for 1 Occur rences starting 05/18/2023 until 05/18/2023 EKG 12 Lead EKG 12 Lead ECG Routine 05/19/2023 5:18 AM EDT [facility] End: 05-19-2023 Hemoglobin A1c/Hemoglobin.total in Blood Hemoglobin A1C Lab Routine Tomorrow AM for 1 Occurrences starting 05/19/2023 until 05/19/2023 [facility] Comment on above: Tomorrow AM for 1 Oc currences starting 05/19/2023 until 05/19/2023 Hemoglobin A1c/Hemoglobin.total in Blood Hemoglobin A1C Lab Routine 05/19/2023 5:30 AM EDT [facility] End: 05-19-2023 Lipid panel Lipid Panel Lab Routine Tomorrow AM for 1 Occurrences starting 05/19/2023 until 05/19/2023 [facility] Comment on above: Tomorrow AM for 1 Oc currences starting 05/19/2023 until 05/19/2023 Lipid panel Lipid Panel Lab Routine 05/19/2023 5:30 AM EDT [facility] End: 04-02-2023 ESTHER SCREENING ESTHER SCREENING Radiology Routine Encounter for screening mammogram for breast cancer 1 Occurrences starting 03/03/2022 until 04/02/2023 [facility] Work Phone: Comment on above: 1 Occurrences starti ng 03/03/2022 until 04/02/2023 End: 03-03-2024 ESTHER SCREENING ESTHER SCREENING Radiology Routine Encounter for screening mammogram for breast cancer 1 Occurrences starting 02/02/2023 until 03/03/2024 [facility] Work Phone: Comment on above: 1 Occurrences starti ng 02/02/2023 until 03/03/2024 MR Abdomen WO and W contrast IV MRI ABDOMEN W WO CONTRAST MRCP Imaging Routine 05/18/2023 1:05 PM EDT [facility] OUTSIDE VENDOR CARDI AC OUTPATIENT EXTENDED RHYTHM RECORDING (WITHOUT TELEMETRY) OUTSIDE VENDOR CARDIAC OUTPATIENT EXTENDED RHYTHM RECORDING (WITHOUT TELEMETRY) Holter Routine Paroxysmal atrial fibrillation (HCC) Ordered: 06/26/2021 [facility] Work Phone: Comment on above: Ordered: 06/26/2021 OUTSIDE VENDOR CARDI AC OUTPATIENT EXTENDED RHYTHM RECORDING (WITHOUT TELEMETRY) OUTSIDE VENDOR CARDIAC OUTPATIENT EXTENDED RHYTHM RECORDING (WITHOUT TELEMETRY) Holter Routine Paroxysmal atrial fibrillation (HCC) History of ST elevation myocardial infarction (STEMI) PAF (paroxysmal atrial fibrillation) (HCC) Ordered: 01/26/2022 [facility] Work Phone: Comment on above: Ordered: 01/26/2022 OUTSIDE VENDOR CARDI AC OUTPATIENT EXTENDED RHYTHM RECORDING (WITHOUT TELEMETRY) OUTSIDE VENDOR CARDIAC OUTPATIENT EXTENDED RHYTHM RECORDING (WITHOUT TELEMETRY) Holter Routine Paroxysmal atrial fibrillation (HCC) Ordered: 01/28/2023 [facility] Work Phone: Comment on above: Ordered: 01/28/2023 Oxygen therapy [[facility] Data Set] Initiate Oxygen Therapy Protocol Respiratory Care Routine As Needed until discontinued starting 05/17/2023 [facility] Assignment Editor Comment on above: As Needed until disc ontinued starting 05/17/2023 End: 10-30-2022 PVR ANK PRESS [facility] PVR ANK PRESS [facility] Vascular Lab Routine PVD (peripheral vascular disease) (HCC) 1 Occurrences starting 10/30/2021 until 10/30/2022 [facility] Work Phone: Comment on above: 1 Occurrences starti ng 10/30/2021 until 10/30/2022 End: 11-16-2023 PVR ANK PRESS [facility] PVR ANK PRESS [facility] Vascular Lab Routine PVD (peripheral vascular disease) (HCC) Aortoiliac occlusive disease (HCC) Carotid artery stenosis, asymptomatic, bilateral 1 Occurrences starting 11/15/2022 until 11/16/2023 [facility] Work Phone: Comment on above: 1 Occurrences starti ng 11/15/2022 until 11/16/2023 End: 02-25-2023 Radiologic exam chest 2 views XR CHEST 2V FRONTAL/LAT Radiology Routine Paroxysmal atrial fibrillation (HCC) History of ST elevation myocardial infarction (STEMI) PAF (paroxysmal atrial fibrillation) (HCC) 1 Occurrences starting 01/26/2022 until 02/25/2023 [facility] Work Phone: Comment on above: 1 Occurrences starti ng 01/26/2022 until 02/25/2023 End: 01-15-2024 [facility] Audiology Routine Pulsatile tinnitus, left ear 1 Occurrences starting 01/14/2023 until 01/15/2024 [facility] Work Phone: Comment on above: 1 Occurrences starti ng 01/14/2023 until 01/15/2024 End: 11-16-2023 US ABD AORTA COMPLETE [facility] US ABD AORTA COMPLETE [facility] Vascular Lab Routine PVD (peripheral vascular disease) (HCC) Aortoiliac occlusive disease (HCC) Carotid artery stenosis, asymptomatic, bilateral 1 Occurrences starting 11/15/2022 until 11/16/2023 [facility] Work Phone: Comment on above: 1 Occurrences starti ng 11/15/2022 until 11/16/2023 End: 11-16-2023 US CAROTID ARTERIES [facility] US CAROTID ARTERIES [facility] Vascular Lab Routine PVD (peripheral vascular disease) (HCC) Aortoiliac occlusive disease (HCC) Carotid artery stenosis, asymptomatic, bilateral 1 Occurrences starting 11/15/2022 until 11/16/2023 [facility] Work Phone: Comment on above: 1 Occurrences starti ng 11/15/2022 until 11/16/2023 [facility] Immunizations Immunization Date Immunization Notes Care Provider Conor marr 11-27-2020 influenza, high-dose , quadrivalent vaccine (FLUZONE HIGH DOSE QUADRIVALENT) Risa Warner APRN.COOKING CHEF Work Phone: [facility] 11-27-2020 influenza virus vacc ine, unspecified formulation Risa [employer] ENGINEER.COOKING CHEF Work Phone: [facility] 03-20-2020 influenza, high-dose , quadrivalent vaccine (FLUZONE HIGH DOSE QUADRIVALENT) Risa Warner [employer] ENGINEER.COOKING CHEF Work Phone: [facility] 12-01-2018 influenza, high dose seasonal, preservative-free Risa Conrado PLC ENGINEER.COOKING CHEF Work Phone: [facility] Work Phone: 12-01-2018 pneumococcal polysaccharide vaccine, 23 valent Risa Warner [employer] ENGINEER.COOKING CHEF Work Phone: [facility] Work Phone: 01-25-2017 influenza, high dose seasonal, preservative-free Risa Conrado PLC ENGINEER.COOKING CHEF Work Phone: [facility] 06-09-2016 pneumococcal conjuga te vaccine, 13 valent Risa Warner [employer] ENGINEER.COOKING CHEF Work Phone: [facility] 06-09-2016 tetanus and diphther ia toxoids, adsorbed, preservative free, for adult use (5 Lf of tetanus toxoid and 2 Lf of diphtheria toxoid) Risa Warner APRN.COOKING CHEF Work Phone: [facility] Payers Date Payer Category Payer Unknown [id number] 2022 Unknown [id number] 2021 Medicare UHC AARP MEDICAR E [facility] AAR MEDICARE O [id number] 2021-Present [phone] [address] [address] [place] [address] O [id number] 2021 Medicare [id number] 2021 Medicare [id number] 2015 Unknown [id number] 1959 Medicare [id number] 1959 Private Health Insurance [id number] 1950 Unknown [id number] 1950 Unknown [id number] 1950 Unknown [id number] [facility] [id number] Social History Date Type Detail Facility Start: 02-17-2016 End: 11-10-2021 Tobacco smoking status NHIS Ex-smoker [facility] Work Phone: End: 02-28-2009 History of tobacco use Current smoker [facility] Work Phone: End: 02-28-2009 History of tobacco use Cigarette Smoker [facility] Work Phone: Start: 02-17-2016 End: 07-28-2022 Cigarettes smoked current (pack per day) - Reported 1.5 [facility] Start: 02-17-2016 End: 11-10-2021 Tobacco use and exposure Smokeless tobacco non-user [facility] Work Phone: Start: 03-23-2021 End: 04-25-2023 Alcohol intake Current drinker of alcohol (finding) [facility] Start: 09-28-2020 History SDOH Alcohol Frequency 1 [facility] Start: 09-28-2020 History SDOH Alcohol Std Drinks 98 [facility] Start: 08-19-2015 End: 06-30-2016 History SDOH Alcohol Comment social [facility] Start: 09-28-2020 History SDOH Social Connections Phone 3 [facility] Start: 09-28-2020 History SDOH Social Connections Get Together 2 [facility] Start: 09-28-2020 History SDOH Social Connections Living 4 [facility] Start: 09-28-2020 History SDOH Physica l Activity DPW 5 [facility] Start: 09-27-2020 Education 10 [facility] Start: 1950 Sex Assigned At Female [facility] Start: 06-07-2021 End: 01-26-2022 Exposure to SARS-CoV-2 (event) Not sure [facility] Start: 10-02-2021 End: 11-11-2021 Exposure to SARS-CoV-2 (event) Unable to assess [facility] Work Phone: Start: 09-27-2020 End: 07-28-2022 Social connection and isolation panel [facility] Do you belong to any clubs or organizations such as druze groups, unions, fraternal or athletic groups, or school groups? Patient refused [facility] Are you now , , , , never or living with a partner? [facility] How often to you hav e a drink containing alcohol? Never [facility] Do you feel stress - tense, restless, nervous, or anxious, or unable to sleep at night because your mind is troubled all the time - these days [OSQ] Not at all [facility] (I/We) worried wheth er (my/our) food would run out before (I/we) got money to buy more. Never true [facility] In the past 12 month s, was there a time when you were not able to pay the mortgage or rent on time? No [facility] Start: 03-26-2019 Gender identity Identifies as female gender (finding) [facility] Assertion Sexually active (finding) [facility] Assertion Gender identity finding (finding) [facility] Assertion Finding of sexua l orientation (finding) [facility] Tobacco smoking status Unknown i f ever smoked [facility] Work Phone: Start: 08-19-2015 Tobacco use and exposure Former smokeless tobacco user [employer] End: 02-28-2009 History of tobacco use User of 15Fiveless tobacco [employer] Start: 1950 Sex Assigned At Not on file B ON Assignment Editor NEGATED: Highlighted row Assertion Current drinker of alcohol (finding) [facility] NEGATED: Highlighted row Assertion Finding relating to drug misuse behavior (finding) [facility] NEGATED: Highlighted row Assertion Exposure to pollution (event) [facility] NEGATED: Highlighted row Assertion [facility] Mental Status Date Assessment Result Facility Cognitive function Oriented to t sandra, place, and person Oriented to person, time and place (finding) [facility] Work Phone: Clinical Notes 08-17-2018 to 06-03-2023 Telephone Encounter - Abigail Falcon LPN - 06/03/2023 3:03 PM EDTTelephone Encounter - Araceli Sparrow APRN.COOKING CHEF - 06/03/2023 2:21 PM Stephanie Almeida APRN.CNP [...] that patient is in hospital currently in [place] and that she will be going to a rehab facility upon discharge. Advised spouse that Dr Paul is not in the office and that I would send message to him for review upon his return. Advised spouse that patient would need to be healthy in order to have any procedure of that sort spouse yelling again stating that this senior medical writer isn't listening to him and states when he called the 1 st time he didn't tell the agent that he wanted his to be transferred to [facility]. Will sen message to Dr Paul as well as print copy of message and place on Dr Diaz desk. Patient would need to have primary at [place] contact [facility]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 [facility] [address] [place] [phone] Referral ID Status Reason Start Date Expiration Date Visits Requested Visits Authorized [id number] Pending Review Auto-Generat ed Referral 03/03/2022 04/02/2023 1 1 [facility] for referral (narrative)* Outpatient Procedure (Routine) - Pending Review Specialty Diagnoses / Procedures Referred By Manuel t Referred To Contact [facility] Diagnoses Paroxysmal atrial fibrillation (HCC) Hypertension, unspecified type Atherosclerotic peripheral vascular disease with intermittent claudication (HCC) Procedures ECG COMPLETE ECG ROUTINE ECG W/LEAST 12 LDS W/I&[place] [address] [place] [address] [address] Referral ID Status Reason Start Date Expiration Date Visits Requested Visits Authorized [id number] Pending Review Auto-Generat ed Referral 07/28/2022 07/28/2023 1 1 [facility] for referral (narrative)* Outpatient Procedure (Routine) - Authorized Specialty Diagnoses / Procedures Referred By Contac t Referred To Contact [facility] Diagnoses PVD (peripheral vascular disease) (HCC) Aortoiliac occlusive disease (HCC) Carotid artery stenosis, asymptomatic, bilateral Procedures US ABD AORTA COMPLETE VAS LAB DUP-SCAN AORTA IVC ILIAC VASCL/BPGS COMPLETE Sergo Tucker MD [address] [place], [place] [id number] [address] [address] Referral ID Status Reason Start Date Expiration Date Visits Requested Visits Authorized [id number] Authorized Auto-Generat ed Referral 11/15/2022 11/15/2023 1 1 * Outpatient Procedure (Routine) - Authorized Specialty Diagnoses / Procedures Referred By Contac t Referred To Contact [facility] Diagnoses PVD (peripheral vascular disease) (HCC) Aortoiliac occlusive disease (HCC) Carotid artery stenosis, asymptomatic, bilateral Procedures PVR ANK PRESS LINSEY VAS LAB NON-INVAS PHYSIOLOGIC STD EXTREMITY ART 2 LEVEL Sergo Tucker MD [address] [place] [address] [address] Referral ID Status Reason Start Date Expiration Date Visits Requested Visits Authorized [id number] Authorized Auto-Generat ed Referral 11/15/2022 11/15/2023 1 1 * Outpatient Procedure (Routine) - Authorized Specialty Diagnoses / Procedures Referred By Contac t Referred To Contact [facility] Diagnoses PVD (peripheral vascular disease) (HCC) Aortoiliac occlusive disease (HCC) Carotid artery stenosis, asymptomatic, bilateral Procedures US CAROTID ARTERIES [facility] DUPLEX SCAN EXTRACRANIAL ART COMPL BI STUDY Sergo Tucker MD [address] [address] Referral ID Status Reason Start Date Expiration Date Visits Requested Visits Authorized [id number] Authorized Auto-Generat ed Referral 11/15/2022 11/15/2023 1 1 [facility] for referral (narrative)* Outpatient Procedure (Routine) - Pending Review Specialty Diagnoses / Procedures Referred By Contac t Referred To Contact [facility] Diagnoses Paroxysmal atrial fibrillation (HCC) Procedures ECG COMPLETE ECG ROUTINE ECG W/LEAST 12 LDS W/I&[place] [address] [place] [address] [address] Referral ID Status Reason Start Date Expiration Date Visits Requested Visits Authorized [id number] Pending Review Auto-Generat ed Referral 01/28/2023 01/28/2024 1 1 [facility] for referral (narrative)* Diagnostic Procedure Only (Routine) - Pending Review Specialty Diagnoses / Procedures Referred By Manuel preston Referred To Contact [facility] Diagnoses Encounter for screening mammogram for breast cancer Procedures ESTHER SCREENING SCREENING MAMMOGRAPHY BI 2-VIEW [place] [address] [place] [address] [facility] [address] [place] [phone] Referral ID Status Reason Start Date Expiration Date Visits Requested Visits Authorized [id number] Pending Review Auto-Generat ed Referral 02/02/2023 03/03/2024 1 1 [facility] for referral (narrative)No Reason for Referral [facility] Work Phone: Review of systems Narrative - Reported Review of Systems not supported for this document type No [facility]: Summary Purpose Family History No Family History Records FoundNo Family History Records FoundNo Family History Records FoundNo Family History Records FoundNo Family History Records Found Includes: Family History in patient's chart No Family History RecordedNo Family History Records FoundNo Family History Records Found Advance Directives No Advanced Directives Records FoundDocuments on File Type Date Recorded 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 Advance Directive(s) 03/28/2019 10:10 AM Advance Directive(s) 07/20/2018 10:43 AM Advance Directive(s) 07/19/2018 7:10 AM Advance Directive(s) 07/14/2018 11:46 AM Advance Directive(s) 06/09/2017 12:41 PM Documents on File Type Date Recorded 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 Advance Directive(s) 03/28/2019 10:10 AM Advance Directive(s) 07/20/2018 10:43 AM Advance Directive(s) 07/19/2018 7:10 AM Advance Directive(s) 07/14/2018 11:46 AM Advance Directive(s) 06/09/2017 12:41 PM Documents on File Type Date Recorded 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 Advance Directive(s) 07/20/2018 10:43 AM Documents on File Type Date Recorded 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 Advance Directive(s) 07/20/2018 10:43 AM [...] Procedures CONSULT TO [facility]INIC OFFICE/OUTPATIENT [facility] MDM 60-[place] [address] [place] [address] Referral ID Status Reason Start Date Expiration Date Visits Requested Visits Authorized [id number] Pending Review PCP Requested Referral 10/12/2021 10/12/2022 1 1 Specialty Diagnoses / Procedures Referred By Contac t Referred To Contact Ent - Otolaryngology Diagnoses Tension-type headache, not intractable, unspecified chronicity pattern Tinnitus, unspecified laterality Procedures CONSULT TO ENT OFFICE/OUTPATIENT [facility] MDM 60-[place] [address] [place] [address] Referral ID Status Reason Start Date Expiration Date Visits Requested Visits Authorized [id number] Pending Review PCP Requested Referral 10/12/2021 10/12/2022 1 1 Specialty Diagnoses / Procedures Referred By Contac t Referred To Contact [facility] Diagnoses Pulsatile tinnitus, left ear Lightheadedness Procedures CT TEMP BONES WO IVCON CT ORBIT SELLA/POST FOSSA/EAR W/O CONTRAST Macrina Cobian PA-C [address] [place] [address] Ct [facility] Referral ID Status Reason Start Date Expiration Date Visits Requested Visits Authorized [id number] Authorized Auto-Generat ed Referral 11/11/2021 12/11/2022 1 1 Physical Exam Physical Exam not supported for this document type No Physical Exam Recorded Additional Source Comments INFORMATION SOURCE (unrecogn ized section and content) DATE CREATED AUTHOR 08/24/2017 [facility] DATE CREATED AUTHOR AUTHOR'S ORGANIZ ATION 01/16/2022 [facility] DATE CREATED AUTHOR AUTHOR'S ORGANIZ ATION 02/26/2022 [facility] DATE CREATED AUTHOR AUTHOR'S ORGANIZ ATION 03/14/2023 [facility] DATE CREATED AUTHOR AUTHOR'S ORGANIZ ATION 05/17/2023 [facility] DATE CREATED AUTHOR AUTHOR'S ORGANIZ ATION 05/21/2023 [facility] DATE CREATED AUTHOR AUTHOR'S ORGANIZ ATION 06/04/2023 [facility] Source Comments (unrecognize d section and content) In the event this informatio n is protected by the Federal Confidentiality of Alcohol and Drug Abuse Patient Records regulations: The Federal rules restrict any use of the information to criminally investigate or prosecute any alcohol or drug abuse patient.[place] the event this information is protected by the Federal Confidentiality of Alcohol and Drug Abuse Patient Records regulations: The Federal rules restrict any use of the information to criminally investigate or prosecute any alcohol or drug abuse patient.[facility] the event this information is protected by the Federal Confidentiality of Alcohol and Drug Abuse Patient Records regulations: The Federal rules restrict any use of the information to criminally investigate or prosecute any alcohol or drug abuse patient.[facility] the event this information is protected by the Federal Confidentiality of Alcohol and Drug Abuse Patient Records regulations: The Federal rules restrict any use of the information to criminally investigate or prosecute any alcohol or drug abuse patient.[facility] the event this information is protected by the Federal Confidentiality of Alcohol and Drug Abuse Patient Records regulations: The Federal rules restrict any use of the information to criminally investigate or prosecute any alcohol or drug abuse patient.[facility] the event this information is protected by the Federal Confidentiality of Alcohol and Drug Abuse Patient Records regulations: The Federal rules restrict any use of the information to criminally investigate or prosecute any alcohol or drug abuse patient.[facility] the event this information is protected by the Federal Confidentiality of Alcohol and Drug Abuse Patient Records regulations: The Federal rules restrict any use of the information to criminally investigate or prosecute any alcohol or drug abuse patient.[facility] the event this information is protected by the Federal Confidentiality of Alcohol and Drug Abuse Patient Records regulations: The Federal rules restrict any use of the information to criminally investigate or prosecute any alcohol or drug abuse patient.[facility] the event this information is protected by the Federal Confidentiality of Alcohol and Drug Abuse Patient Records regulations: The Federal rules restrict any use of the information to criminally investigate or prosecute any alcohol or drug abuse patient.[facility] the event this information is protected by the Federal Confidentiality of Alcohol and Drug Abuse Patient Records regulations: The Federal rules restrict any use of the information to criminally investigate or prosecute any alcohol or drug abuse patient.[facility] the event this information is protected by the Federal Confidentiality of Alcohol and Drug Abuse Patient Records regulations: The Federal rules restrict any use of the information to criminally investigate or prosecute any alcohol or drug abuse patient.[facility] the event this information is protected by the Federal Confidentiality of Alcohol and Drug Abuse Patient Records regulations: The Federal rules restrict any use of the information to criminally investigate or prosecute any alcohol or drug abuse patient.[facility] the event this information is protected by the Federal Confidentiality of Alcohol and Drug Abuse Patient Records regulations: The Federal rules restrict any use of the information to criminally investigate or prosecute any alcohol or drug abuse patient.[facility] the event this information is protected by the Federal Confidentiality of Alcohol and Drug Abuse Patient Records regulations: The Federal rules restrict any use of the information to criminally investigate or prosecute any alcohol or drug abuse patient.[facility] HospitalIn the event this information is protected by the Federal Confidentiality of Alcohol and Drug Abuse Patient Records regulations: The Federal rules restrict any use of the information to criminally investigate or prosecute any alcohol or drug abuse patient.[facility] HospitalIn the event this information is protected by the Federal Confidentiality of Alcohol and Drug Abuse Patient Records regulations: The Federal rules restrict any use of the information to criminally investigate or prosecute any alcohol or drug abuse patient.[facility] HospitalIn the event this information is protected by the Federal Confidentiality of Alcohol and Drug Abuse Patient Records regulations: The Federal rules restrict any use of the information to criminally investigate or prosecute any alcohol or drug abuse patient.[facility] HospitalIn the event this information is protected by the Federal Confidentiality of Alcohol and Drug Abuse Patient Records regulations: The Federal rules restrict any use of the information to criminally investigate or prosecute any alcohol or drug abuse patient.[facility] HospitalIn the event this information is protected by the Federal Confidentiality of Alcohol and Drug Abuse Patient Records regulations: The Federal rules restrict any use of the information to criminally investigate or prosecute any alcohol or drug abuse patient.[facility] HospitalIn the event this information is protected by the Federal Confidentiality of Alcohol and Drug Abuse Patient Records regulations: The Federal rules restrict any use of the information to criminally investigate or prosecute any alcohol or drug abuse patient.[facility] HospitalIn the event this information is protected by the Federal Confidentiality of Alcohol and Drug Abuse Patient Records regulations: The Federal rules restrict any use of the information to criminally investigate or prosecute any alcohol or drug abuse patient.[facility] HospitalIn the event this information is protected by the Federal Confidentiality of Alcohol and Drug Abuse Patient Records regulations: The Federal rules restrict any use of the information to criminally investigate or prosecute any alcohol or drug abuse patient.[facility] HospitalIn the event this information is protected by the Federal Confidentiality of Alcohol and Drug Abuse Patient Records regulations: The Federal rules restrict any use of the information to criminally investigate or prosecute any alcohol or drug abuse patient.[facility] HospitalIn the event this information is protected by the Federal Confidentiality of Alcohol and Drug Abuse Patient Records regulations: The Federal rules restrict any use of the information to criminally investigate or prosecute any alcohol or drug abuse patient.[facility] HospitalIn the event this information is protected by the Federal Confidentiality of Alcohol and Drug Abuse Patient Records regulations: The Federal rules restrict any use of the information to criminally investigate or prosecute any alcohol or drug abuse patient.[facility] HospitalIn the event this information is protected by the Federal Confidentiality of Alcohol and Drug Abuse Patient Records regulations: The Federal rules restrict any use of the information to criminally investigate or prosecute any alcohol or drug abuse patient.[facility] HospitalIn the event this information is protected by the Federal Confidentiality of Alcohol and Drug Abuse Patient Records regulations: The Federal rules restrict any use of the information to criminally investigate or prosecute any alcohol or drug abuse patient.[facility] HospitalIn the event this information is protected by the Federal Confidentiality of Alcohol and Drug Abuse Patient Records regulations: The Federal rules restrict any use of the information to criminally investigate or prosecute any alcohol or drug abuse patient.[facility] HospitalIn the event this information is protected by the Federal Confidentiality of Alcohol and Drug Abuse Patient Records regulations: The Federal rules restrict any use of the information to criminally investigate or prosecute any alcohol or drug abuse patient.[facility] HospitalIn the event this information is protected by the Federal Confidentiality of Alcohol and Drug Abuse Patient Records regulations: The Federal rules restrict any use of the information to criminally investigate or prosecute any alcohol or drug abuse patient.[facility] Reason for Visit (unrecogniz ed section and [...] laterality Procedures CONSULT TO ENT OFFICE/OUTPATIENT [facility] MDM 60-[place] [address] [place] [address] Referral ID Status Reason Start Date Expiration Date Visits Requested Visits Authorized [id number] Pending Review PCP Requested Referral 10/12/2021 10/12/2022 1 1 Reason Comments Follow Up Virtual Reason Comments Follow Up Reason Onset Date Comments Population Health Navigation Outreach 12/17/2021 Spouse of [facility] outreach pt Reason Comments F/U 6 Month Reason Onset Date Comments Refill Request 05/26/2022 Reason Comments Follow Up Reason Comments CPE (Medicare) Reason Comments Established Patient Follow Up Reason Onset Date Comments Population Health Navigation Outreach 03/31/2023 [facility] Outreach Reason Comments Chest Pain Sharp stabbing right sided chest pains starting 0300. Took 2 325mg asa when pain started. 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 Given 3 baby asa in office at 1122 and was given one nitro at 1129 with some improvement. Denies any n/v, slightly sob. Specialty Diagnoses / Procedures Referred By Manuel preston Referred To Contact Diagnoses Right sided abdominal pain Luis Estrella MD [address] [facility], [place] [address] [facility] [address] [place] [address] Referral ID Status Reason Start Date Expiration Date Visits Re quested Visits Authorized [id number] 1 1 Reason Comments ER/Urgent Referral Reason Comments Orders [facility] Reason Comments Patient Update Care Teams (unrecognized sec tion and content) Application Security Specialist Relationship Specialty Start [place] [address] [place], [place] [id number] PCP - General Internal Medicine 01/30/19 Janey Patricia DO [address] [place] [address] Primary Staff Physician Nephrology 03/26/21 Application Security Specialist Relationship Specialty Start Date End Date [place]la Monterroso [place] [id number] [place] [address] PCP - General Internal Medicine 01/30/19 Janey Patricia DO [address] [place] [address] Primary Staff Physician Nephrology 03/26/21 Application Security Specialist Relationship Specialty Start Date End Date Kayla Monterroso [id number] [place] [address] PCP - General Internal Medicine 01/30/19 aJney Patricia DO [address] [place] [address] Primary Staff Physician Nephrology 03/26/21 Application Security Specialist Relationship Specialty Start Date End Date Kayla Monterroso MD [id number] [place] [address] PCP - General Internal Medicine 01/30/19 Janey Patricia DO [address] [place] [address] Primary Staff Physician Nephrology 03/26/21 Application Security Specialist Relationship Specialty Start Date End Date Kayla Monterroso MD [id number] [place] [address] PCP - General Internal Medicine 01/30/19 Janey Patricia DO [address] [place] [address] Primary Staff Physician Nephrology 03/26/21 Application Security Specialist Relationship Specialty Start Date End Date Kayla Monterroso MD [id number] [place] [address] PCP - General Internal Medicine 01/30/19 Janey Patricia DO [address] [place] [address] Primary Staff Physician Nephrology 03/26/21 Application Security Specialist Relationship Specialty Start Date End Date Kayla Monterroso MD [id number] [place] [address] PCP - General Internal Medicine 01/30/19 Janey Patricia DO [address] [place] [address] Primary Staff Physician Nephrology 03/26/21 Application Security Specialist Relationship Specialty Start Date End Date Kayla Monterroso MD [id number] [place] [address] PCP - General Internal Medicine 01/30/19 Janey Patricia DO [address] [place] [address] Primary Staff Physician Nephrology 03/26/21 Application Security Specialist Relationship Specialty Start Date End Date Kayla Monterroso MD [address] [place] [address] PCP - General Internal Medicine 01/30/19 Janey Patricia DO [address] [place] [address] Primary Staff Physician Nephrology 03/26/21 Application Security Specialist Relationship Specialty Start Date End Date Kayla Monterroso MD [id number] [place] [address] PCP - General Internal Medicine 01/30/19 Janey Patricia DO [address] [place] [address] Primary Staff Physician Nephrology 03/26/21 Application Security Specialist Relationship Specialty Start [place] [address] [place] [address] PCP - General Internal Medicine 01/30/19 Janey Patricia DO [address] [place] [address] Primary Staff Physician Nephrology 03/26/21 Application Security Specialist Relationship Specialty Start [place] [address] [place] [address] PCP - General Internal Medicine 01/30/19 Janey Patricia DO [address] [place] [address] Primary Staff Physician Nephrology 03/26/21 Application Security Specialist Relationship Specialty Start [place] [address] [place] [address] PCP - General Internal Medicine 01/30/19 Janey Patricia DO [address] [place] [address] Primary Staff Physician Nephrology 03/26/21 Application Security Specialist Relationship Specialty Start Date End Date Kayla Monterroso MD [id number] [place] [address] PCP - General Internal Medicine 01/30/19 Janey Patricia DO [address] [place] [address] Primary Staff Physician Nephrology 03/26/21 Application Security Specialist Relationship Specialty Start [place] [address] [place] [address] PCP - General Internal Medicine 01/30/19 Janey Patricia DO [address] [place] [address] Primary Staff Physician Nephrology 03/26/21 Application Security Specialist Relationship Specialty Start [place] [address] [place] [address] PCP - General Internal Medicine 01/30/19 Janey Patricia DO [address] [place] [address] Primary Staff Physician Nephrology 03/26/21 Application Security Specialist Relationship Specialty Start [place] [address] [place] [address] PCP - General Internal Medicine 01/30/19 Janey Patricia DO [address] [place] [address] Primary Staff Physician Nephrology 03/26/21 Application Security Specialist Relationship Specialty Start [place] [address] [place] [address] PCP - General Internal Medicine 01/30/19 Janey Patricia DO [address] [place] [address] Primary Staff Physician Nephrology 03/26/21 Application Security Specialist Relationship Specialty Start [place] [address] [place] [address] PCP - General Internal Medicine 01/30/19 Janey aPtricia DO [address] [place] [address] Primary Staff Physician Nephrology 03/26/21 Application Security Specialist Relationship Specialty Start [place] [address] [place] [address] PCP - General Internal Medicine 01/30/19 Janey Patricia DO [address] [place] [address] Primary Staff Physician Nephrology 03/26/21 Application Security Specialist Relationship Specialty Start [place] [address] [place] [address] PCP - General Internal Medicine 01/30/19 Janey Patricia DO [address] [place] [address] Primary Staff Physician Nephrology 03/26/21 Application Security Specialist Relationship Specialty Start [place] [address] [place] [address] PCP - General Internal Medicine 05/18/23 Application Security Specialist Relationship Specialty Start [place] [address] [place] [address] PCP - General Internal Medicine 01/30/19 Janey Patricia DO [address] [place] [address] Primary Staff Physician Nephrology 03/26/21 Application Security Specialist Relationship Specialty Start [place] [address] [place] [address] PCP - General Internal Medicine 01/30/19 Janey Patricia DO [address] [place] [address] Primary Staff Physician Nephrology 03/26/21 Application Security Specialist Relationship Specialty Start [place] [address] [place] [address] PCP - General Internal Medicine 01/30/19 Janey Patricia DO [address] [place] [address] Primary Staff Physician Nephrology 03/26/21 Ordered Prescriptions [...] 200 mg, Oral, DAILY, First dose on [place] 05/19/23 at 0900, Until Discontinued 08 (Given [...] 2030 2214 (New Bag - Provider: Alissa Resenidz RN)2244 (Stopped - Provider: Alissa Resendiz RN) [...] BE BASED ON THE PRIMARY CLINICAL RECORDS. [facility] [employer] [facility]. provides no warranty or guarantee of the accuracy or completeness of information in this document.
--- NOTE | 2023-06-16 01:22 | PC.NURSE ---
[facility] notified of admission
--- OUTSIDE RECORDS SUMMARY | 2023-06-16 01:45 | XMS_ITS | CCD ---
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 Performed By: #### M Adelina, LIVP, TSHX #### [facility] [address] [place] [address] Patient Service Coordinator: Daniella Lott MD Albumin/Glob Ratio 1.1 Normal 1.0-2.5 [facility] Comment on above: Performed By: #### M G, LIVP, TSHX #### [facility] [address] [place], [place] 3533383 Patient Service Coordinator: Daniella Lott MD Alkaline Phos 71 U/L Normal 35-104 [facility] Comment on above: Performed By: #### M G, LIVP, TSHX #### [facility] [address] [place], [place] 2010583 Patient Service Coordinator: Daniella Lott MD ALT [Catalytic activity/Vol] 8 U/L Normal 5-33 [facility] Comment on above: Performed By: #### M G, LIVP, TSHX #### [address] [place], [place] 7231183 Patient Service Coordinator: Daniella Lott MD AST [Catalytic activity/Vol] 14 U/L Normal <32 [facility] Comment on above: Performed By: #### M G, LIVP, TSHX #### [address] [place], [place] 9013983 Patient Service Coordinator: Daniella Lott MD Bilirubin [Mass/Vol] 0.4 mg/dL Normal 0.3-1.2 [facility] Comment on above: Performed By: #### M G, LIVP, TSHX #### [facility] [address] [place] [address] [place] [address] Patient Service Coordinator: Daniella Lott MD Bilirubin, Indirect Can not be calculated Normal 0.0-1.0 [facility] Comment on above: Performed By: #### M G, LIVP, TSHX #### [facility] [address] [place] [address] Dr. [place], [place] 3670283 Patient Service Coordinator: Daniella Lott MD Bilirubin.indirect [Mass/Vol] mg/dL Normal <0.3 [facility] Comment on above: Performed By: #### M G, LIVP, TSHX #### [facility] [address] [place] [address] Patient Service Coordinator: Daniella Lott MD Protein [Mass/Vol] 6.5 g/dL Normal 6.4-8.3 [facility] Comment on above: Performed By: #### M G, LIVP, TSHX #### [facility] [address] [place] [address] Patient Service Coordinator: Daniella Lott MD MRI ABDOMEN W WO [...] Daphne Palacios MD 05/20/23 Final result Normal [facility] Magnesiumon 05-20-2023 Magnesium [Mass/Vol] 1.7 mg/dL Normal 1.6-2.6 [facility] Comment on above: Performed By: #### M PALMER Sahu, TSHX #### [facility] [address] [place] [address] Patient Service Coordinator: Daniella Lott MD TSH w/reflex to FT4on 2023 Thyroid Stim. Horm. 2.32 uIU/mL Normal 0.30-5.00 [facility] Comment on above: Performed By: #### M Adelina LIVP, TSHX #### [facility] [address] [place] [address] Patient Service Coordinator: Daniella Lott MD Troponinon 05-20-2023 Troponin, High Sens 22 ng/L High 0-14 [facility] Comment on above: Result Comment: High Sensitivity Troponin values cannot be compared with other Troponin methodologies. Performed By: #### T ROPI #### [facility] [address] [place] [address] Patient Service Coordinator: Daniella Lott MD Troponin, High Sens 23 ng/L High 0-14 [facility] Comment on above: Result Comment: High Sensitivity Troponin values cannot be compared with other Troponin methodologies. Performed By: #### T KUMARI, BMP, CDP #### [facility] [address] [place] [address] Patient Service Coordinator: Daniella Lott MD XR CHEST PORTABLEon 05-20-19 [...] Interpreted by: Erik Hope MD Signed by: Erki Hope MD 05/20/23 Final result Normal [facility] Brain Natri. Peptideon 05-18 Natriuretic peptide B (Bld) [Mass/Vol] 3604 pg/mL High <300 [facility] Comment on above: Result Comment: An age-independent cutoff point of 300 pg/ml has a 98% negative predictive value excluding acute heart failure. Performed By: #### T BK #### [facility] [address] [place] [address] Patient Service Coordinator: Daniella Lott MD Brain Natriuretic Peptideon 05-19-2023 Natriuretic peptide B (Bld) [Mass/Vol] 3604 pg/mL High NINF - 300 pg/mL [facility] Comment on above: An age-independent cutoff point of 300 pg/ml has a 98% negative predictive value excluding acute heart failure. CBC auto differentialon 04-29 Basophils (Bld) [#/Vol] [facility] Basophils/100 WBC (Bld) 0 % 0 - 2 % [facility] Eosinophils (Bld) [#/Vol] 0.27 10*3/uL [facility] Eosinophils/100 WBC (Bld) 4 % 1 - 4 % [facility] Erythrocyte distribution width (RBC) [Ratio] 13.5 % 11.8 - 14.4 % [facility] Hematocrit (Bld) [Volume fraction] 29.4 % Low 36.3 - 47.1 % [facility] Hemoglobin (Bld) [Mass/Vol] 9.5 g/dL Low 11.9 - 15.1 g/dL [facility] Immature granulocytes (Bld) [#/Vol] 0.03 10*3/uL [facility] Immature granulocytes/100 WBC (Bld) 0 % 0 [facility] Interpretation and review of laboratory results Abnormal [facility] Lymphocytes/100 WBC (Bld) 22 % Low 24 - 43 % [facility] Lymphocytes/100 WBC (Bld) 1.54 % [facility] MCH (RBC) [Entitic mass] 31.0 pg 25.2 - 33.5 pg [facility] MCHC (RBC) [Mass/Vol] 32.3 g/dL 28.4 - 34.8 g/dL [facility] MCV (RBC) [Entitic vol] 96.1 fL 82.6 - 102.9 fL [facility] Monocytes/100 WBC (Bld) 10 % 3 - 12 % [facility] Monocytes/100 WBC (Bld) 0.74 % [facility] Neutrophils/100 WBC (Bld) 64 % 36 - 65 % [facility] Nucleated RBC/100 WBC (Bld) [Ratio] 0.0 % 0.0 per 100 WBC [facility] Platelet mean volume (Bld) [Entitic vol] 10.1 fL 8.1 - 13.5 fL [facility] Platelets (Bld) [#/Vol] 125 10*3/uL Low [facility] RBC (Bld) [#/Vol] 3.06 10*6/uL Low 3.95 - 5.1 1 m/uL [facility] Segmented neutrophils/100 WBC (Bld) 4.57 % [facility] WBC other (Bld) [#/Vol] 7.2 [facility] CBC with Diffon 05-19-2023 Abs. Basophil <0.03 Normal 0.00-0.20 [facility] Comment on above: Performed By: #### C MPX, CDP, BNP #### [facility] [address] [place] [id number] Patient Service Coordinator: Daniella Lott MD #### GLYHGB #### [place] [id number] Patient Service Coordinator: Jere Mas MD Abs.Imm.Granulocyt e 0.03 k/uL Normal 0.00-0.30 [facility] Comment on above: Performed By: #### C MPX, CDP, BNP #### [address] [place] [id number] Patient Service Coordinator: Daniella Lott MD #### GLYHGB #### [place] [address] Patient Service Coordinator: Jere Mas MD Abs.Neutrophil (Seg) 4.57 k/uL Normal 1.50-8.10 [facility] Comment on above: Performed By: #### C MPX, CDP, BNP #### [address] [place] [id number] Patient Service Coordinator: Daniella Lott MD #### GLYHGB #### [place] [id number] Patient Service Coordinator: Jere Mas MD Basophils/100 WBC (Bld) 0 % Normal 0-2 [facility] Comment on above: Performed By: #### C MPX, CDP, BNP #### [address] [place] [address] Patient Service Coordinator: Daniella Lott MD #### GLYHGB #### [address] [id number] Patient Service Coordinator: Jere Mas MD Eosinophils (Bld) [#/Vol] 0.27 10*3/uL Normal 0.00-0.44 [facility] Comment on above: Performed By: #### C MPX, CDP, BNP #### [address] [place] 0550283 Patient Service Coordinator: Daniella Lott MD #### GLYHGB #### [place] [id number] Patient Service Coordinator: Jere Mas MD Eosinophils/100 WBC (Bld) 4 % Normal 1-4 [facility] Comment on above: Performed By: #### C MPX, CDP, BNP #### [address] [place] 0550283 Patient Service Coordinator: Daniella Lott MD #### GLYHGB #### [place] [id number] Patient Service Coordinator: Jere Mas MD Erythrocyte distribution width (RBC) [Ratio] 13.5 % Normal 11.8-14.4 [facility] Comment on above: Performed By: #### C MPX, CDP, BNP #### [address] [place] [address] Patient Service Coordinator: Daniella Lott MD #### GLYHGB #### [place] [id number] Patient Service Coordinator: Jere Mas MD Hematocrit (Bld) [Volume fraction] 29.4 % Low 36.3-47.1 [facility] Comment on above: Performed By: #### C MPX, CDP, BNP #### [facility] [address] [place] [address] Patient Service Coordinator: Daniella Lott MD #### GLYHGB #### [place] 867980 [place], [place] 2636708 Patient Service Coordinator: Jere Mas MD Hemoglobin (Bld) [Mass/Vol] 9.5 g/dL Low 11.9-15.1 [facility] Comment on above: Performed By: #### C MPX, CDP, BNP #### [facility] [address] [place] [address] Patient Service Coordinator: Daniella Lott MD #### GLYHGB #### [place] [address]67986 [place], [place] 3646408 Patient Service Coordinator: Jere Mas MD Immature granulocytes/100 WBC (Bld) 0 % Normal 0 [facility] Comment on above: Performed By: #### C MPX, CDP, BNP #### [address] [place] [address] Patient Service Coordinator: Daniella Lott MD #### GLYHGB #### [address] [id number] Patient Service Coordinator: Jere Mas MD Lymphocytes (Bld) [#/Vol] 1.54 10*3/uL Normal 1.10-3.70 [facility] Comment on above: Performed By: #### C MPX, CDP, BNP #### [address] [place] [address] Patient Service Coordinator: Daniella Lott MD #### GLYHGB #### [place] [address]67988 [place], [place] 4411908 Patient Service Coordinator: Jere Mas MD Lymphocytes/100 WBC (Bld) 22 % Low 24-43 [facility] Comment on above: Performed By: #### C MPX, CDP, BNP #### [address] [place] [address] Patient Service Coordinator: Daniella Lott MD #### GLYHGB #### [place] [address]67985 [place], [place] 1125608 Patient Service Coordinator: Jere Mas MD MCH (RBC) [Entitic mass] 31.0 pg Normal 25.2-33.5 [facility] Comment on above: Performed By: #### C MPX, CDP, BNP #### [address] [place] 0550283 Patient Service Coordinator: Daniella Lott MD #### GLYHGB #### [place] [phone] Patient Service Coordinator: Jere Mas MD MCHC (RBC) [Mass/Vol] 32.3 g/dL Normal 28.4-34.8 [facility] Comment on above: Performed By: #### C MPX, CDP, BNP #### [address] [place] [id number] Patient Service Coordinator: Daniella Lott MD #### GLYHGB #### [place] [address]67985 [place] 3386808 Patient Service Coordinator: Jere Mas MD MCV (RBC) [Entitic vol] 96.1 fL Normal 82.6-102.9 [facility] Comment on above: Performed By: #### C MPX, CDP, BNP #### [address] [place] [address] Patient Service Coordinator: Daniella Lott MD #### GLYHGB #### [place] [address]67988 [place], [place] 5757508 Patient Service Coordinator: Jere Mas MD Monocytes (Bld) [#/Vol] 0.74 10*3/uL Normal 0.10-1.20 [facility] Comment on above: Performed By: #### C MPX, CDP, BNP #### [facility] [address] [place], [place] 6937583 Patient Service Coordinator: Daniella Lott MD #### GLYHGB #### [address] [id number] Patient Service Coordinator: Jere Mas MD Monocytes/100 WBC (Bld) 10 % Normal 3-12 [facility] Comment on above: Performed By: #### C MPX, CDP, BNP #### [facility] [address] [place], [place] 8116783 Patient Service Coordinator: Daniella Lott MD #### GLYHGB #### [address] [id number] Patient Service Coordinator: Jere Mas MD Neutrophil (Seg) 64 % Normal 36-65 [facility] Comment on above: Performed By: #### C MPX, CDP, BNP #### [address] [place], [place] 7401083 Patient Service Coordinator: Daniella Lott MD #### GLYHGB #### [address] [phone] Patient Service Coordinator: Jere Mas MD NRBC Automated 0.0 per 100 WBC Normal 0.0 [facility] Comment on above: Performed By: #### C MPX, CDP, BNP #### [facility] [address] [place] [address] Dr. [place], [place] 5631283 Patient Service Coordinator: Daniella Lott MD #### GLYHGB #### [address] [address] Patient Service Coordinator: Jere Mas MD Platelet mean volume (Bld) [Entitic vol] 10.1 fL Normal 8.1-13.5 [facility] Comment on above: Performed By: #### C MPX, CDP, BNP #### [address] [place] [phone] Patient Service Coordinator: Daniella Lott MD #### GLYHGB #### [place] [address]67986 [place], [place] 3565608 Patient Service Coordinator: Jere Mas MD Platelets (Bld) [#/Vol] 125 10*3/uL Low 138-453 [facility] Comment on above: Performed By: #### C MPX, CDP, BNP #### [facility] [address] [place] [address] [place] 8761183 Patient Service Coordinator: Danilela Lott MD #### GLYHGB #### [place] [phone] Patient Service Coordinator: Jere Mas MD RBC (Bld) [#/Vol] 3.06 10*6/uL Low 3.95-5.11 [facility] Comment on above: Performed By: #### C MPX, CDP, BNP #### [address] [place] [phone] Patient Service Coordinator: Daniella Lott MD #### GLYHGB #### [place] [address] Patient Service Coordinator: Jere Mas MD WBC (Bld) [#/Vol] 7.2 10*3/uL Normal 3.5-11.3 [facility] Comment on above: Performed By: #### C MPX, CDP, BNP #### [facility] [address] [place] [address] [place] [phone] Patient Service Coordinator: Daniella Lott MD #### GLYHGB #### [address] [phone] Patient Service Coordinator: Jere Mas MD Comp Metabolic Pr/rfx MGon 0 3- Albumin [Mass/Vol] 2.9 g/dL Low 3.5-5.2 [facility] Comment on above: Performed By: #### T ROPI #### [facility] [address] [place], [place] 2685783 Patient Service Coordinator: Daniella Lott MD Albumin/Glob Ratio 1.2 Normal 1.0-2.5 [facility] Comment on above: Performed By: #### T ROPI #### [facility] [address] [place], [place] 4463283 Patient Service Coordinator: Daniella Lott MD Alkaline Phos 59 U/L Normal 35-104 [facility] Comment on above: Performed By: #### T ROPI #### [facility] [address] [place], [place] 6801683 Patient Service Coordinator: Daniella Lott MD ALT [Catalytic activity/Vol] 5 U/L Normal 5-33 [facility] Comment on above: Performed By: #### T ROPI #### [facility] [address] [place], [place] 7637683 Patient Service Coordinator: Daniella Lott MD Anion gap [Moles/Vol] 8 mmol/L Low 9-17 [facility] Comment on above: Performed By: #### T ROPI #### [facility] [address] [place] [address] Dr. [place], [place] 3505783 Patient Service Coordinator: Daniella Lott MD AST [Catalytic activity/Vol] 12 U/L Normal <32 [facility] Comment on above: Performed By: #### T ROPI #### [facility] [address] [place], [place] 5999383 Patient Service Coordinator: Daniella Lott MD Bilirubin [Mass/Vol] 0.5 mg/dL Normal 0.3-1.2 [facility] Comment on above: Performed By: #### T ROPI #### [facility] [address] [place], [place] 6622483 Patient Service Coordinator: Daniella Lott MD BUN/CRE Ratio 19 Normal 9-20 [facility] Comment on above: Performed By: #### T ROPI #### [facility] [address] [place] [address] Patient Service Coordinator: Daniella Lott MD Calcium [Mass/Vol] 7.8 mg/dL Low 8.6-10.4 [facility] Comment on above: Performed By: #### T ROPI #### [facility] [address] [place], [place] 3059983 Patient Service Coordinator: Daniella Lott MD Chloride [Moles/Vol] 101 mmol/L Normal 98-107 [facility] Comment on above: Performed By: #### T ROPI #### [facility] [address] [place], [place] 1777683 Patient Service Coordinator: Daniella Lott MD CO2 [Moles/Vol] 23 mmol/L Normal 20-31 [facility] Comment on above: Performed By: #### T ROPI #### [facility] [address] [place], [place] 8067583 Patient Service Coordinator: Daniella Lott MD Creatinine [Mass/Vol] 1.4 mg/dL High 0.5-0.9 [facility] Comment on above: Performed By: #### T ROPI #### [facility] [address] [place], [place] 2793083 Patient Service Coordinator: Daniella Lott MD GFR/1.73 sq M.predicted among non-blacks MDRD (S/P/Bld) [Vol rate/Area] 40 mL/min/{1.73_m2} Low >60 [facility] Comment on above: Result Comment: These [...] secretion. Performed By: #### T ROPI #### [facility] [address] [place], [place] 1111183 Patient Service Coordinator: Daniella Lott MD Glucose [Mass/Vol] 97 mg/dL Normal 70-99 [facility] Comment on above: Performed By: #### T ROPI #### [facility] [address] [place], [place] 6586383 Patient Service Coordinator: Daniella Lott MD Potassium [Moles/Vol] 3.9 mmol/L Normal 3.7-5.3 [facility] Comment on above: Performed By: #### T ROPI #### [facility] [address] [place] [address] Patient Service Coordinator: Daniella Lott MD Protein [Mass/Vol] 5.4 g/dL Low 6.4-8.3 [facility] Comment on above: Performed By: #### T ROPI #### [facility] [address] [place], [place] 9270783 Patient Service Coordinator: Daniella Lott MD Sodium [Moles/Vol] 132 mmol/L Low 135-144 [facility] Comment on above: Performed By: #### T ROPI #### [facility] [address] [place], [place] 5346683 Patient Service Coordinator: Daniella Lott MD Urea nitrogen [Mass/Vol] 27 mg/dL High 8-23 [facility] Comment on above: Performed By: #### T ROPI #### [facility] [address] [place] [address] Patient Service Coordinator: Daniella Lott MD Comprehensive Metabolic Pane l w/ Reflex to MGon 05-19-2023 Albumin [Mass/Vol] 2.9 g/dL Low 3.5 - 5.2 g/dL [facility] Albumin/Globulin [Mass ratio] 1.2 {ratio} 1.0 - 2.5 [facility] ALP [Catalytic activity/Vol] 59 U/L 35 - 104 U/L [facility] ALT [Catalytic activity/Vol] 5 U/L 5 - 33 U/L [facility] Anion gap [Moles/Vol] 8 mmol/L Low 9 - 17 mmol/L [facility] AST [Catalytic activity/Vol] 12 U/L NINF - 32 U/L [facility] Bilirubin [Mass/Vol] 0.5 mg/dL 0.3 - 1.2 mg/dL [facility] Calcium [Mass/Vol] 7.8 mg/dL Low 8.6 - 10. 4 mg/dL [facility] Chloride [Moles/Vol] 101 mmol/L 98 - 107 mmol/L [facility] CO2 [Moles/Vol] 23 mmol/L 20 - 31 mmol/L [facility] Creatinine [Mass/Vol] 1.4 mg/dL High 0.5 - 0.9 mg/dL [facility] GFR/1.73 sq M.predicted MDRD (S/P/Bld) [Vol rate/Area] 40 mL/min/{1.73_m2} Low - PINF [facility] Comment on above: These results are [...] [Mass/Vol] 97 mg/dL 70 - 99 mg/dL [facility] Potassium [Moles/Vol] 3.9 mmol/L 3.7 - 5.3 mmol/L [facility] Protein [Mass/Vol] 5.4 g/dL Low 6.4 - 8.3 g/dL [facility] Sodium [Moles/Vol] 132 mmol/L Low 135 - 144 mmol/L [facility] Urea nitrogen [Mass/Vol] 27 mg/dL High 8 - 23 mg/dL [facility] Urea nitrogen/Creatinin e [Mass ratio] 19 mg/mg 9 - 20 [facility] Cult,Urineon 05-19-2023 Cult,Urine Specimen Description .CLEAN CATCH URINE Culture NO GROWTH Report Status FINAL 05/19/2023 Normal [facility] Comment on above: Performed By: #### U #### [facility] [address] [place] [address] Patient Service Coordinator: Jere Mas MD [facility] [address] [place] [address] Patient Service Coordinator: Daniella Lott MD EKG 12 Leadon 05-19-2023 Atrial Rate 104 BPM [facility] Q-T Interval 310 ms [facility] QRS Duration 80 ms [facility] QTc Calculation (Bazett) 466 ms [facility] R Flint 14 degrees [facility] T Flint -3 degrees [facility] Ventricular Rate 136 BPM [facility] Atrial fibrillation with rapid ventricular response Abnormal ECG When compared with ECG of 17-MAY-2023 16:19, Atrial fibrillation has replaced Sinus rhythm Vent. rate has increased BY 61 BPM Nonspecific T wave abnormality, worse in Inferior leads Confirmed by LAVERNE SILVESTRE ([id number]) on 05/19/2023 12:43:09 AM [facility] Laverne Silvestre MD - 05/19/2023 Atrial [...] 73 BPM [facility] P Flint 61 degrees [facility] P-R Interval 144 ms [facility] Q-T Interval 372 ms [facility] QRS Duration 86 ms [facility] QTc Calculation (Bazett) 409 ms [facility] R [place] 42 degrees [facility] T [place] 35 degrees [facility] Ventricular Rate 73 BPM [facility] Normal sinus rhythm Normal ECG When compared with ECG of 18-MAY-2023 15:47, (unconfirmed) Sinus rhythm has replaced Atrial fibrillation Vent. rate has decreased BY 63 BPM Nonspecific T wave abnormality, improved in Inferior leads Confirmed by LAVERNE SILVESTRE ([id number]) on 05/19/2023 12:38:02 AM [facility] Laverne Silvestre MD - 05/19/2023 Normal sinus rhythm Normal ECG When compared with ECG of 18-MAY-2023 15:47, (unconfirmed) Sinus rhythm has replaced Atrial fibrillation Vent. rate has decreased BY 63 BPM Nonspecific T wave abnormality, improved in Inferior leads Confirmed by LAVERNE SILVESTRE ([id number]) on 05/19/2023 12:38:02 AM [facility] EKG Rhythm Stripon [facility] Hemoglobin A1Con 05-19-2023 Glucose [Mass/Vol] 88 mg/dL Normal [facility] Comment on above: Result Comment: The ADA and AACC recommend providing the estimated average glucose result to permit better patient understanding of their HBA1c result. Performed By: #### T BK #### [facility] [address] [place] [address] [place] [address] Patient Service Coordinator: Daniella Lott MD HbA1c (Bld) [Mass fraction] 4.7 % Normal 4.0-6.0 [facility] Comment on above: Performed By: #### T BK #### [facility] [address] [place] [address] Patient Service Coordinator: Daniella Lott MD Lipid Profileon 05-19-2023 Cholesterol [Mass/Vol] 88 mg/dL Normal 0-199 [facility] Comment on above: Result Comment: Cholesterol Guidelines: <200 Desirable 200-240 Borderline >240 Undesirable Performed By: #### T BK, BMP, CDP #### [facility] [address] [place] [address] [place] [address] Patient Service Coordinator: Daniella Lott MD Cholesterol in HDL [Mass/Vol] 37 mg/dL Low >40 [facility] Comment on above: Result Comment: HDL Guidelines: <40 Undesirable 40-59 Borderline >59 Desirable Performed By: #### JP SMITH, CDP #### [facility] [address] [place], [place] [id number] Patient Service Coordinator: Daniella Lott MD Cholesterol in LDL [Mass/Vol] 41 mg/dL Normal 0-100 [facility] Comment on above: Result Comment: LDL Guidelines: <100 Desirable 100-129 Near to/above Desirable 130-159 Borderline >159 Undesirable Direct (measured) LDL and calculated LDL are not interchangeable tests. Performed By: #### JP SMITH, CDP #### [facility] [address] [place], [place] [id number] Patient Service Coordinator: Daniella Lott MD Cholesterol in VLDL [Mass/Vol] 10 mg/dL Normal [facility] Comment on above: Performed By: #### JP SMITH, CDP #### [facility] [address] [place], [place] [id number] Patient Service Coordinator: Daniella Lott MD Cholesterol.total/ Cholesterol in HDL [Mass ratio] 2.0 {ratio} Normal [facility] Comment on above: Performed By: #### JP SMITH, CDP #### [facility] [address] [place], [place] [id number] Patient Service Coordinator: Daniella Lott MD Triglyceride [Mass/Vol] 51 mg/dL Normal <150 [facility] Comment on above: Result Comment: Triglyceride Guidelines: <150 Desirable 150-199 Borderline 200-499 High >499 Very high Based on AHA Guidelines for fasting triglyceride, November 2011. Performed By: #### JP SMITH, CDP #### [facility] [address] [place] [address] Patient Service Coordinator: Daniella Lott MD No Panel Informationon 05-18 Interpretation and review of laboratory results Abnormal [facility] CBC auto differentialon 04-29 0 Basophils (Bld) [#/Vol] 0.03 10*3/uL [facility] Basophils/100 WBC (Bld) 1 % 0 - 2 % [facility] Eosinophils (Bld) [#/Vol] 0.06 10*3/uL [facility] Eosinophils/100 WBC (Bld) 1 % 1 - 4 % [facility] Erythrocyte distribution width (RBC) [Ratio] 13.5 % 11.8 - 14.4 % [facility] Hematocrit (Bld) [Volume fraction] 31.5 % Low 36.3 - 47.1 % [facility] Hemoglobin (Bld) [Mass/Vol] 10.1 g/dL Low 11.9 - 15.1 g/dL [facility] Immature granulocytes (Bld) [#/Vol] [facility] Immature granulocytes/100 WBC (Bld) 0 % 0 [facility] Interpretation and review of laboratory results Abnormal [facility] Lymphocytes/100 WBC (Bld) 27 % 24 - 43 % [facility] Lymphocytes/100 WBC (Bld) 1.53 % [facility] MCH (RBC) [Entitic mass] 31.6 pg 25.2 - 33.5 pg [facility] MCHC (RBC) [Mass/Vol] 32.1 g/dL 28.4 - 34.8 g/dL [facility] MCV (RBC) [Entitic vol] 98.4 fL 82.6 - 102.9 fL [facility] Monocytes/100 WBC (Bld) 11 % 3 - 12 % [facility] Monocytes/100 WBC (Bld) 0.65 % [facility] Neutrophils/100 WBC (Bld) 60 % 36 - 65 % [facility] Nucleated RBC/100 WBC (Bld) [Ratio] 0.0 % 0.0 per 100 WBC [facility] Platelet mean volume (Bld) [Entitic vol] 10.1 fL 8.1 - 13.5 fL [facility] Platelets (Bld) [#/Vol] 138 10*3/uL [facility] RBC (Bld) [#/Vol] 3.20 10*6/uL Low 3.95 - 5.1 1 m/uL [facility] Segmented neutrophils/100 WBC (Bld) 3.48 % [facility] WBC other (Bld) [#/Vol] 5.8 [facility] CBC with Diffon 05-18-2023 Abs. Basophil 0.03 k/uL Normal 0.00-0.20 [facility] Comment on above: Performed By: #### T ROPI #### [facility] [address] [place] [address] [place], [place] [id number] Patient Service Coordinator: Daniella Lott MD Abs.Imm.Granulocyt e <0.03 Normal 0.00-0.30 [facility] Comment on above: Performed By: #### T ROPI #### [facility] [address] [place] [address] [place] [address] Patient Service Coordinator: Daniella Lott MD Abs.Neutrophil (Seg) 3.48 k/uL Normal 1.50-8.10 [facility] Comment on above: Performed By: #### T ROPI #### [address] [place], [place] 3496583 Patient Service Coordinator: Daniella Lott MD Basophils/100 WBC (Bld) 1 % Normal 0-2 [facility] Comment on above: Performed By: #### T ROPI #### [facility] [address] [place] [address] [place] [id number] Patient Service Coordinator: Daniella Lott MD Eosinophils (Bld) [#/Vol] 0.06 10*3/uL Normal 0.00-0.44 [facility] Comment on above: Performed By: #### T ROPI #### [facility] [address] [place] [address] [place] [address] Patient Service Coordinator: Daniella Lott MD Eosinophils/100 WBC (Bld) 1 % Normal 1-4 [facility] Comment on above: Performed By: #### T ROPI #### [facility] [address] [place], [place] [id number] Patient Service Coordinator: Daniella Lott MD Erythrocyte distribution width (RBC) [Ratio] 13.5 % Normal 11.8-14.4 [facility] Comment on above: Performed By: #### T ROPI #### [facility] [address] [place], [facility]83 Patient Service Coordinator: Daniella Lott MD Hematocrit (Bld) [Volume fraction] 31.5 % Low 36.3-47.1 [facility] Comment on above: Performed By: #### T ROPI #### [address] [place], [facility]83 Patient Service Coordinator: Daniella Lott MD Hemoglobin (Bld) [Mass/Vol] 10.1 g/dL Low 11.9-15.1 [facility] Comment on above: Performed By: #### T ROPI #### [address] [place], [facility]83 Patient Service Coordinator: Daniella Lott MD Immature granulocytes/100 WBC (Bld) 0 % Normal 0 [facility] Comment on above: Performed By: #### T ROPI #### [address] [place], [facility]83 Patient Service Coordinator: Daniella Lott MD Lymphocytes (Bld) [#/Vol] 1.53 10*3/uL Normal 1.10-3.70 [facility] Comment on above: Performed By: #### T ROPI #### [facility] [address] [place], [facility]83 Patient Service Coordinator: Daniella Lott MD Lymphocytes/100 WBC (Bld) 27 % Normal 24-43 [facility] Comment on above: Performed By: #### T ROPI #### [facility] [address] [place], [place] [id number] Patient Service Coordinator: Daniella Lott MD MCH (RBC) [Entitic mass] 31.6 pg Normal 25.2-33.5 [facility] Comment on above: Performed By: #### T ROPI #### [facility] [address] [place], [place] [id number] Patient Service Coordinator: Daniella Lott MD MCHC (RBC) [Mass/Vol] 32.1 g/dL Normal 28.4-34.8 [facility] Comment on above: Performed By: #### T ROPI #### [address] [place], [facility]83 Patient Service Coordinator: Daniella Lott MD MCV (RBC) [Entitic vol] 98.4 fL Normal 82.6-102.9 [facility] Comment on above: Performed By: #### T ROPI #### [address] [place], [facility]83 Patient Service Coordinator: Daniella Lott MD Monocytes (Bld) [#/Vol] 0.65 10*3/uL Normal 0.10-1.20 [facility] Comment on above: Performed By: #### T ROPI #### [address] [place], [facility]83 Patient Service Coordinator: Daniella Lott MD Monocytes/100 WBC (Bld) 11 % Normal 3-12 [facility] Comment on above: Performed By: #### T ROPI #### [facility] [address] [place] [address] Dr. [place], [facility]83 Patient Service Coordinator: Daniella Lott MD Neutrophil (Seg) 60 % Normal 36-65 [facility] Comment on above: Performed By: #### T ROPI #### [facility] [address] [place] [address] Dr. [place], [facility]83 Patient Service Coordinator: Daniella Lott MD NRBC Automated 0.0 per 100 WBC Normal 0.0 [facility] Comment on above: Performed By: #### T ROPI #### [facility] [address] [place], [place] 1599183 Patient Service Coordinator: Daniella Lott MD Platelet mean volume (Bld) [Entitic vol] 10.1 fL Normal 8.1-13.5 [facility] Comment on above: Performed By: #### T ROPI #### [facility] [address] [place], [place] 7698583 Patient Service Coordinator: Daniella Lott MD Platelets (Bld) [#/Vol] 138 10*3/uL Normal 138-453 [facility] Comment on above: Performed By: #### T ROPI #### [facility] [address] [place], [place] 9536283 Patient Service Coordinator: Daniella Lott MD RBC (Bld) [#/Vol] 3.20 10*6/uL Low 3.95-5.11 [facility] Comment on above: Performed By: #### T ROPI #### [facility] [address] [place], [place] 3477583 Patient Service Coordinator: Daniella Lott MD WBC (Bld) [#/Vol] 5.8 10*3/uL Normal 3.5-11.3 [facility] Comment on above: Performed By: #### T ROPI #### [facility] [address] [place], [place] [id number] Patient Service Coordinator: Daniella Lott MD Comp Metabolic Pr/rfx MGon 0 05-18-2023 Albumin [Mass/Vol] 3.1 g/dL Low 3.5-5.2 [facility] Comment on above: Performed By: #### T ROPI #### [facility] [address] [place] [address] Patient Service Coordinator: Daniella Lott MD Albumin/Glob Ratio 1.3 Normal 1.0-2.5 [facility] Comment on above: Performed By: #### T ROPI #### [facility] [address] [place], [place] 3621483 Patient Service Coordinator: Daniella Lott MD Alkaline Phos 58 U/L Normal 35-104 [facility] Comment on above: Performed By: #### T ROPI #### [facility] [address] [place], [place] [id number] Patient Service Coordinator: Daniella Lott MD ALT [Catalytic activity/Vol] 5 U/L Normal 5-33 [facility] Comment on above: Performed By: #### T ROPI #### [facility] [address] [place], [place] 1781883 Patient Service Coordinator: Daniella Lott MD Anion gap [Moles/Vol] 10 mmol/L Normal 9-17 [facility] Comment on above: Performed By: #### T ROPI #### [facility] [address] [place], [place] 9071083 Patient Service Coordinator: Daniella Lott MD AST [Catalytic activity/Vol] 13 U/L Normal <32 [facility] Comment on above: Performed By: #### T ROPI #### [facility] [address] [place], [place] 9477183 Patient Service Coordinator: Daniella Lott MD Bilirubin [Mass/Vol] 0.6 mg/dL Normal 0.3-1.2 [facility] Comment on above: Performed By: #### T ROPI #### [facility] [address] [place], [place] 0426983 Patient Service Coordinator: Daniella Lott MD BUN/CRE Ratio 18 Normal 9-20 [facility] Comment on above: Performed By: #### T ROPI #### [facility] [address] [place], [place] 2052583 Patient Service Coordinator: Daniella Lott MD Calcium [Mass/Vol] 8.0 mg/dL Low 8.6-10.4 [facility] Comment on above: Performed By: #### T ROPI #### [facility] [address] [place] [address] Patient Service Coordinator: Daniella Lott MD Chloride [Moles/Vol] 104 mmol/L Normal 98-107 [facility] Comment on above: Performed By: #### T ROPI #### [facility] [address] [place] [address] Patient Service Coordinator: Daniella Lott MD CO2 [Moles/Vol] 22 mmol/L Normal 20-31 [facility] Comment on above: Performed By: #### T ROPI #### [facility] [address] [place], [place] 1258383 Patient Service Coordinator: Daniella Lott MD Creatinine [Mass/Vol] 1.3 mg/dL High 0.5-0.9 [facility] Comment on above: Performed By: #### T ROPI #### [facility] [address] [place] [address] Patient Service Coordinator: Daniella Lott MD GFR/1.73 sq M.predicted among non-blacks MDRD (S/P/Bld) [Vol rate/Area] 44 mL/min/{1.73_m2} Low >60 [facility] Comment on above: Result Comment: These [...] secretion. Performed By: #### T ROPI #### [facility] [address] [place] [address] Patient Service Coordinator: Daniella Lott MD Glucose [Mass/Vol] 83 mg/dL Normal 70-99 [facility] Comment on above: Performed By: #### T ROPI #### [facility] [address] [place] [address] Patient Service Coordinator: Daniella Lott MD Potassium [Moles/Vol] 4.1 mmol/L Normal 3.7-5.3 [facility] Comment on above: Performed By: #### T ROPI #### [facility] [address] [place], [place] 2677583 Patient Service Coordinator: Daniella Lott MD Protein [Mass/Vol] 5.4 g/dL Low 6.4-8.3 [facility] Comment on above: Performed By: #### T ROPI #### [facility] [address] [place], [place] 0724283 Patient Service Coordinator: Daniella Lott MD Sodium [Moles/Vol] 136 mmol/L Normal 135-144 [facility] Comment on above: Performed By: #### T ROPI #### [facility] [address] [place], [place] [id number] Patient Service Coordinator: Daniella Lott MD Urea nitrogen [Mass/Vol] 23 mg/dL Normal 8-23 [facility] Comment on above: Performed By: #### T ROPI #### [address] [place] [address] Patient Service Coordinator: Daniella Lott MD Comprehensive Metabolic Pane l w/ Reflex to MGon 05-18-2023 Albumin [Mass/Vol] 3.1 g/dL Low 3.5 - 5.2 g/dL [facility] Albumin/Globulin [Mass ratio] 1.3 {ratio} 1.0 - 2.5 [facility] ALP [Catalytic activity/Vol] 58 U/L 35 - 104 U/L [facility] ALT [Catalytic activity/Vol] 5 U/L 5 - 33 U/L [facility] Anion gap [Moles/Vol] 10 mmol/L 9 - 17 mmol/L [facility] AST [Catalytic activity/Vol] 13 U/L [facility] - 32 U/L [facility] Bilirubin [Mass/Vol] 0.6 mg/dL 0.3 - 1.2 mg/dL [facility] Calcium [Mass/Vol] 8.0 mg/dL Low 8.6 - 10. 4 mg/dL [facility] Chloride [Moles/Vol] 104 mmol/L 98 - 107 mmol/L [facility] CO2 [Moles/Vol] 22 mmol/L 20 - 31 mmol/L [facility] Creatinine [Mass/Vol] 1.3 mg/dL High 0.5 - 0.9 mg/dL [facility] GFR/1.73 sq M.predicted MDRD (S/P/Bld) [Vol rate/Area] 44 mL/min/{1.73_m2} Low - PINF [facility] Comment on above: These results are [...] [Mass/Vol] 83 mg/dL 70 - 99 mg/dL [facility] Interpretation and review of laboratory results Abnormal [facility] Potassium [Moles/Vol] 4.1 mmol/L 3.7 - 5.3 mmol/L [facility] Protein [Mass/Vol] 5.4 g/dL Low 6.4 - 8.3 g/dL [facility] Sodium [Moles/Vol] 136 mmol/L 135 - 144 mmol/L [facility] Urea nitrogen [Mass/Vol] 23 mg/dL 8 - 23 mg/dL [facility] Urea nitrogen/Creatinin e [Mass ratio] 18 mg/mg 9 - 20 [facility] EKG 12 LeadOrdered By: Adam Silvestre on 05-18-2023 Atrial Rate 58 BPM [facility] Work Phone: P Flint 69 degrees [facility] Work Phone: P-R Interval 140 ms [facility] Work Phone: Q-T Interval 418 ms [facility] Work Phone: QRS Duration 82 ms [facility] Work Phone: QTc Calculation (Bazett) 410 ms [facility] Work Phone: R [place] 43 degrees [facility] Work Phone: T [place] 54 degrees [facility] Work Phone: Ventricular Rate 58 BPM [facility] Work Phone: [facility] Work Phone: EKG 12 Leadon 05-18-2023 Sinus bradycardia Otherwise normal ECG No previous ECGs available Confirmed by LAVERNE SILVESTRE ([id number]) on 05/18/2023 1:01:51 AM [facility] Laverne Silvestre MD - 05/18/2023 Sinus bradycardia Otherwise normal ECG No previous ECGs available Confirmed by LAVERNE SILVESTRE ([id number]) on 05/18/2023 1:01:51 AM [facility] Atrial Rate 75 BPM [facility] P Flint 91 degrees [facility] P-R Interval 154 ms [facility] Q-T Interval 380 ms [facility] QRS Duration 86 ms [facility] QTc Calculation (Bazett) 424 ms [facility] R [place] 38 degrees [facility] T [place] 50 degrees [facility] Ventricular Rate 75 BPM [facility] Normal sinus rhythm Normal ECG When compared with ECG of 17-MAY-2023 11:52, (unconfirmed) No significant change was found Confirmed by LAVERNE SILVESTRE ([id number]) on 05/18/2023 12:57:09 AM [facility] Laverne Silvestre MD - 05/18/2023 Normal sinus rhythm Normal ECG When compared with ECG of 17-MAY-2023 11:52, (unconfirmed) No significant change was found Confirmed by LAVERNE SILVESTRE ([id number]) on 05/18/2023 12:57:09 AM [facility] EKG Rhythm Stripon [facility] CBC with Auto Differentialon 05-17-2023 Basophils (Bld) [#/Vol] 0.03 10*3/uL [facility] Immature granulocytes (Bld) [#/Vol] [facility] Interpretation and review of laboratory results Abnormal [facility] Lymphocytes/100 WBC (Bld) 1.23 % [facility] Monocytes/100 WBC (Bld) 0.57 % [facility] Neutrophils/100 WBC (Bld) 75 % High 36 - 65 % [facility] Nucleated RBC/100 WBC (Bld) [Ratio] 0.0 % 0.0 per 100 WBC [facility] Segmented neutrophils/100 WBC (Bld) 5.64 % [facility] WBC other (Bld) [#/Vol] 7.6 [facility] CBC with Diffon 05-17-2023 Abs. Basophil 0.03 k/uL Normal 0.00-0.20 [facility] Comment on above: Performed By: #### T ROPI #### [facility] [address] [place] [address] [place] [address] Patient Service Coordinator: Daniella Lott MD Abs.Imm.Granulocyt e <0.03 Normal 0.00-0.30 [facility] Comment on above: Performed By: #### T ROPI #### [facility] [address] [place] [address] [place] [address] Patient Service Coordinator: Daniella Lott MD Abs.Neutrophil (Seg) 5.64 k/uL Normal 1.50-8.10 [facility] Comment on above: Performed By: #### T ROPI #### [facility] [address] [place] [address] Dr. [place] [id number] Patient Service Coordinator: Daniella Lott MD Lymphocytes (Bld) [#/Vol] 1.23 10*3/uL Normal 1.10-3.70 [facility] Comment on above: Performed By: #### T ROPI #### [facility] [address] [place], [place] 2387083 Patient Service Coordinator: Daniella Lott MD Monocytes (Bld) [#/Vol] 0.57 10*3/uL Normal 0.10-1.20 [facility] Comment on above: Performed By: #### T ROPI #### [facility] [address] [place] [address] Patient Service Coordinator: Daniella Lott MD Neutrophil (Seg) 75 % High 36-65 [facility] Comment on above: Performed By: #### T ROPI #### [address] [place], [facility]83 Patient Service Coordinator: Daniella Lott MD NRBC Automated 0.0 per 100 WBC Normal 0.0 [facility] Comment on above: Performed By: #### T ROPI #### [address] [place], [facility]83 Patient Service Coordinator: Daniella Lott MD WBC (Bld) [#/Vol] 7.6 10*3/uL Normal 3.5-11.3 [facility] Comment on above: Performed By: #### T ROPI #### [facility] [address] [place], [place] [id number] Patient Service Coordinator: Daniella Lott MD Basophils/100 WBC (Bld) 0 % Normal 0-2 [facility] Comment on above: Performed By: #### T ROPI #### [facility] [address] [place], [place] [id number] Patient Service Coordinator: Daniella Lott MD Eosinophils (Bld) [#/Vol] 0.11 10*3/uL Normal 0.00-0.44 [facility] Comment on above: Performed By: #### T ROPI #### [address] [place] [id number] Patient Service Coordinator: Daniella Lott MD Eosinophils/100 WBC (Bld) 1 % Normal 1-4 [facility] Comment on above: Performed By: #### T ROPI #### [address] [place] [id number] Patient Service Coordinator: Daniella Lott MD Erythrocyte distribution width (RBC) [Ratio] 13.7 % Normal 11.8-14.4 [facility] Comment on above: Performed By: #### T ROPI #### [address] [place] [id number] Patient Service Coordinator: Daniella Lott MD Hematocrit (Bld) [Volume fraction] 38.1 % Normal 36.3-47.1 [facility] Comment on above: Performed By: #### T ROPI #### [address] [place] [id number] Patient Service Coordinator: Daniella Lott MD Hemoglobin (Bld) [Mass/Vol] 11.8 g/dL Low 11.9-15.1 [facility] Comment on above: Performed By: #### T ROPI #### [address] [place] [id number] Patient Service Coordinator: Daniella Lott MD Immature granulocytes/100 WBC (Bld) 0 % Normal 0 [facility] Comment on above: Performed By: #### T ROPI #### [address] [place] [address] Patient Service Coordinator: Daniella Lott MD Lymphocytes/100 WBC (Bld) 16 % Low 24-43 [facility] Comment on above: Performed By: #### T ROPI #### [address] [place], [place] [id number] Patient Service Coordinator: Daniella Lott MD MCH (RBC) [Entitic mass] 30.6 pg Normal 25.2-33.5 [facility] Comment on above: Performed By: #### T ROPI #### [address] [place], [facility]83 Patient Service Coordinator: Daniella Lott MD MCHC (RBC) [Mass/Vol] 31.0 g/dL Normal 28.4-34.8 [facility] Comment on above: Performed By: #### T ROPI #### [address] [place], [facility]83 Patient Service Coordinator: Daniella Lott MD MCV (RBC) [Entitic vol] 99.0 fL Normal 82.6-102.9 [facility] Comment on above: Performed By: #### T ROPI #### [address] [place], [facility]83 Patient Service Coordinator: Daniella Lott MD Monocytes/100 WBC (Bld) 8 % Normal 3-12 [facility] Comment on above: Performed By: #### T ROPI #### [address] [place], [facility]83 Patient Service Coordinator: Daniella Lott MD Platelet mean volume (Bld) [Entitic vol] 9.5 fL Normal 8.1-13.5 [facility] Comment on above: Performed By: #### T ROPI #### [address] [place], [facility]83 Patient Service Coordinator: Daniella Lott MD Platelets (Bld) [#/Vol] 169 10*3/uL Normal 138-453 [facility] Comment on above: Performed By: #### T ROPI #### [address] [place], [facility]83 Patient Service Coordinator: Daniella Lott MD RBC (Bld) [#/Vol] 3.85 10*6/uL Low 3.95-5.11 [facility] Comment on above: Performed By: #### T ROPI #### [facility] [address] [place] [address] Patient Service Coordinator: Daniella Lott MD CTA CHEST ABDOMEN PELVIS [...] PROVIDED HISTORY: chest pain, into back, previous MS, and also known PVD with aortic stent TECHNOLOGIST PROVIDED HISTORY: chest pain, into back, previous MS, and also known PVD with aortic stent [...] Faisal Treviño MD 05/17/23 Final result Normal [facility] CTA Chest vessels and Abdomi nal [...] Further evaluation with pelvic ultrasound is recommended. [facility] RIS CONSOLIDATED EXAMINATION: CTA OF [...] PROVIDED HISTORY: chest pain, into back, previous MS, and also known PVD with aortic stent TECHNOLOGIST PROVIDED HISTORY: chest pain, into back, previous MS, and also known PVD with aortic stent [...] superficial soft tissues show no acute process. [facility] Faisal Julian MD - 05/17/2023 [...] PROVIDED HISTORY: chest pain, into back, previous MS, and also known PVD with aortic stent TECHNOLOGIST PROVIDED HISTORY: chest pain, into back, previous MS, and also known PVD with aortic stent [...] Further evaluation with pelvic ultrasound is recommended. [facility] Radiology Study observation (narrative) [facility] CTA Chest vessels and Abdomi nal vessels and Pelvis vessels W contrast IVOrdered By: Faisal Treviño on 05-17-2023 [facility] Work Phone: Comp Metabolic Profon 2023 Albumin [Mass/Vol] 3.8 g/dL Normal 3.5-5.2 [facility] Comment on above: Performed By: #### T ROPI #### [facility] [address] [place] [address] Patient Service Coordinator: Daniella Lott MD Albumin/Glob Ratio 1.4 Normal 1.0-2.5 [facility] Comment on above: Performed By: #### T ROPI #### [facility] [address] [place], [place] [id number] Patient Service Coordinator: Daniella Lott MD Alkaline Phos 74 U/L Normal 35-104 [facility] Comment on above: Performed By: #### T ROPI #### [facility] [address] [place], [place] 5393583 Patient Service Coordinator: Daniella Lott MD ALT [Catalytic activity/Vol] 11 U/L Normal 5-33 [facility] Comment on above: Performed By: #### T ROPI #### [facility] [address] [place], [place] 1391183 Patient Service Coordinator: Daniella Lott MD Anion gap [Moles/Vol] 9 mmol/L Normal 9-17 [facility] Comment on above: Performed By: #### T ROPI #### [facility] [address] [place] [address] Patient Service Coordinator: Daniella Lott MD AST [Catalytic activity/Vol] 18 U/L Normal <32 [facility] Comment on above: Performed By: #### T ROPI #### [facility] [address] [place], [place] 6357583 Patient Service Coordinator: Daniella Lott MD Bilirubin [Mass/Vol] 0.5 mg/dL Normal 0.3-1.2 [facility] Comment on above: Performed By: #### T ROPI #### [facility] [address] [place], [place] 1798583 Patient Service Coordinator: Daniella Lott MD BUN/CRE Ratio 20 Normal 9-20 [facility] Comment on above: Performed By: #### T ROPI #### [facility] [address] [place], [place] 9945083 Patient Service Coordinator: Daniella Lott MD Calcium [Mass/Vol] 8.7 mg/dL Normal 8.6-10.4 [facility] Comment on above: Performed By: #### T ROPI #### [facility] [address] [place], [place] [id number] Patient Service Coordinator: Daniella Lott MD Chloride [Moles/Vol] 108 mmol/L High 98-107 [facility] Comment on above: Performed By: #### T ROPI #### [facility] [address] [place], [place] 1667983 Patient Service Coordinator: Daniella Lott MD CO2 [Moles/Vol] 25 mmol/L Normal 20-31 [facility] Comment on above: Performed By: #### T ROPI #### [facility] [address] [place], [place] 0762883 Patient Service Coordinator: Daniella Lott MD Creatinine [Mass/Vol] 1.3 mg/dL High 0.5-0.9 [facility] Comment on above: Performed By: #### T ROPI #### [facility] [address] [place] [address] Patient Service Coordinator: Daniella Lott MD GFR/1.73 sq M.predicted among non-blacks MDRD (S/P/Bld) [Vol rate/Area] 44 mL/min/{1.73_m2} Low >60 [facility] Comment on above: Result Comment: These [...] secretion. Performed By: #### T ROPI #### [facility] [address] [place] [address] [place] [address] Patient Service Coordinator: Daniella Lott MD Glucose [Mass/Vol] 99 mg/dL Normal 70-99 [facility] Comment on above: Performed By: #### T ROPI #### [facility] [address] [place] [address] Dr. [place], [place] 8569883 Patient Service Coordinator: Daniella Lott MD Potassium [Moles/Vol] 4.5 mmol/L Normal 3.7-5.3 [facility] Comment on above: Performed By: #### T ROPI #### [facility] [address] [place] [address] [place] [address] Patient Service Coordinator: Daniella Lott MD Protein [Mass/Vol] 6.6 g/dL Normal 6.4-8.3 [facility] Comment on above: Performed By: #### T ROPI #### [facility] [address] [place] [address] [place] [address] Patient Service Coordinator: Daniella Lott MD Sodium [Moles/Vol] 142 mmol/L Normal 135-144 [facility] Comment on above: Performed By: #### T ROPI #### [facility] [address] [place] [address] [place] [address] Patient Service Coordinator: Daniella Lott MD Urea nitrogen [Mass/Vol] 26 mg/dL High 8-23 [facility] Comment on above: Performed By: #### T BK #### [facility] [address] [place] [address] Patient Service Coordinator: Daniella Lott MD [facility] Metabolic Pane [facility] 05-17-2023 Albumin [Mass/Vol] 3.8 g/dL 3.5 - 5.2 g/dL [facility] Albumin/Globulin [Mass ratio] 1.4 {ratio} 1.0 - 2.5 [facility] ALP [Catalytic activity/Vol] 74 U/L 35 - 104 U/L [facility] ALT [Catalytic activity/Vol] 11 U/L 5 - 33 U/L [facility] Anion gap [Moles/Vol] 9 mmol/L 9 - 17 mmol/L [facility] AST [Catalytic activity/Vol] 18 U/L NINF - 32 U/L [facility] Bilirubin [Mass/Vol] 0.5 mg/dL 0.3 - 1.2 mg/dL [facility] Calcium [Mass/Vol] 8.7 mg/dL 8.6 - 10. 4 mg/dL [facility] Chloride [Moles/Vol] 108 mmol/L High 98 - 107 mmol/L [facility] CO2 [Moles/Vol] 25 mmol/L 20 - 31 mmol/L [facility] Creatinine [Mass/Vol] 1.3 mg/dL High 0.5 - 0.9 mg/dL [facility] GFR/1.73 sq M.predicted MDRD (S/P/Bld) [Vol rate/Area] 44 mL/min/{1.73_m2} Low - PINF [facility] Comment on above: These results are [...] [Mass/Vol] 99 mg/dL 70 - 99 mg/dL [facility] Interpretation and review of laboratory results Abnormal [facility] Potassium [Moles/Vol] 4.5 mmol/L 3.7 - 5.3 mmol/L [facility] Protein [Mass/Vol] 6.6 g/dL 6.4 - 8.3 g/dL [facility] Sodium [Moles/Vol] 142 mmol/L 135 - 144 mmol/L [facility] Urea nitrogen [Mass/Vol] 26 mg/dL High 8 - 23 mg/dL [facility] Urea nitrogen/Creatinin e [Mass ratio] 20 mg/mg 9 - 20 [facility] Microscopic Urinalysison Bacteria LM Ql (Urine sed) 2+ Abnormal None [facility] Epithelial cells LM.HPF (Urine sed) [#/Area] 5 TO 10 [facility] Interpretation and review of laboratory results Abnormal [facility] Mucus Ql (Urine sed) TRACE Abnormal None [facility] RBC LM.HPF (Urine sed) [#/Area] 0 TO 2 [facility] Renal Epithelial, UA 0 TO 2 0 /HPF [facility] WBC LM.HPF (Urine sed) [#/Area] 5 TO 10 [facility] Portable XR Chest AP single viewon [...] left mid lung, granuloma versus other nodule. [facility] Radiology Study observation (narrative) [facility] Portable XR Chest AP single viewOrdered By: Dacia Linton on 05-17-2023 [facility] Work Phone: Troponinon 05-17-2023 Troponin, High Sens 18 ng/L High 0-14 [facility] Comment on above: Result Comment: High Sensitivity Troponin values cannot be compared with other Troponin methodologies. Performed By: #### T BK, BMP, CDP #### [facility] [address] [place] [address] Patient Service Coordinator: Daniella Lott MD Interpretation and review of laboratory results Abnormal [facility] Troponin I.cardiac High sensitivity method [Mass/Vol] 18 ng/L High 0 - 14 ng/L [facility] Comment on above: High Sensitivity Tro ponin values cannot be compared with other Troponin methodologies. [facility] Troponin, High Sens 19 ng/L High 0-14 [facility] Comment on above: Result Comment: High Sensitivity Troponin values cannot be compared with other Troponin methodologies. Performed By: #### T ROPI #### [facility] [address] [place] [address] Patient Service Coordinator: Daniella Lott MD Troponin, High Sens 19 ng/L High 0-14 [facility] Comment on above: Result Comment: High Sensitivity Troponin values cannot be compared with other Troponin methodologies. Performed By: #### T ROPI #### [facility] [address] [place] [address] Patient Service Coordinator: Daniella Lott MD Interpretation and review of laboratory results Abnormal [facility] Troponin I.cardiac High sensitivity method [Mass/Vol] 19 ng/L High 0 - 14 ng/L [facility] Comment on above: High Sensitivity Tro ponin values cannot be compared with other Troponin methodologies. [facility] Interpretation and review of laboratory results Abnormal [facility] Troponin I.cardiac High sensitivity method [Mass/Vol] 19 ng/L High 0 - 14 ng/L [facility] Comment on above: High Sensitivity Tro ponin values cannot be compared with other Troponin methodologies. [facility] UA w/Reflex Cultureon 2023 Bilirubin, SemiQt,Ur Negative Normal NEG [facility] Comment on above: Performed By: #### T ROPI #### [facility] [address] [place] [address] Patient Service Coordinator: Daniella Lott MD Blood, Urine Negative Normal NEG [facility] Comment on above: Performed By: #### T ROPI #### [facility] [address] [place] [address] [place] [address] Patient Service Coordinator: Daniella Lott MD Glucose Ql (U) Negative Normal NEG [facility] Comment on above: Performed By: #### T ROPI #### [facility] [address] [place] [address] Patient Service Coordinator: Daniella Lott MD Ketones Ql (U) Negative Normal NEG [facility] Comment on above: Performed By: #### T ROPI #### [facility] [address] [place] [address] Patient Service Coordinator: Daniella Lott MD Nitrite,Ur Negative Normal [facility] Comment on above: Performed By: #### T ROPI #### [facility] [address] [place] [address] Patient Service Coordinator: Daniella Lott MD PH,Ur 6.0 Normal 5.0-9.0 [facility] Comment on above: Performed By: #### T ROPI #### [facility] [address] [place] [address] Dr. [place], [place] 2239383 Patient Service Coordinator: Daniella Lott MD Protein Ql (U) Negative Normal NEG [facility] Comment on above: Performed By: #### T ROPI #### [facility] [address] [place] [address] Dr. [place], [place] 7632483 Patient Service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 Phone: Start: 05-17-2023 Most recent diastoli c blood pressure 80-89 mm hg Eden Yañez CNP Work Phone: Start: 05-17-2023 Most recent systolic blood pres>/equal 140 mm hg Eden Yañez CNP Work Phone: Start: 05-17-2023 Nitroglycerine 0.4 M g Sublingual eACH, EBOX Eden Yañez [employer]ERCIAL GRE[employer] BUILDING DESIGNER Work Phone: Start: 05-17-2023 Pt-focused hlth risk assmt score doc stnd instrm Eden Yañez [employer]ERCIAL GRE[employer] BUILDING DESIGNER Work Phone: Start: 05-17-2023 Ct thorax w/contrast material Arabella Kenisha Nato DO Work Phone: Start: 05-17-2023 Radiologic exam ches t single view Arabella R Nato DO Work Phone: Start: 05-17-2023 End: 05-17-2023 Ecg routine ecg w/least 12 lds w/i&r Eden Yañez COMMERCIAL [employer] BUILDING DESIGNER Work Phone: Start: 05-17-2023 End: 05-17-2023 Comprehensive metabolic panel Arabella Dutton DO Work Phone: Start: 01-28-2023 Ecg routine ecg w/le ast 12 lds i&r only Ayo Paul MD Work Phone: Start: 01-28-2023 Lipid 1996 panel - S kay or Plasma Vielka Pennington APRN.COMMERCIAL GREEN BUILDING DESIGNER Work Phone: Start: 07-28-2022 Ecg routine ecg w/le ast 12 lds i&r only [facility] Start: 11-27-2020 Lipid 1996 panel - S kay or Plasma Risa Warner APRN.COMMERCIAL GREEN BUILDING DESIGNER Work Phone: Start: 09-27-2020 Adult depression scr eening assessment Risa Warner APRN.COMMERCIAL GREEN BUILDING DESIGNER Work Phone: Start: 07-29-2020 Mammography Risa smith APRN.COMMERCIAL GREEN BUILDING DESIGNER Work Phone: Start: 03-28-2019 Colonoscopy Risa smith APRN.COMMERCIAL GREEN BUILDING DESIGNER Work Phone: Plan of Treatment Date Care Activity Detail Author Start: 05-18-2028 Lipid panel Lipid Screening [facility] Start: 01-29-2028 Lipid 1996 panel - Serum or Plasma Lipid Screening [facility] Start: 01-29-2028 Lipid panel Lipid Screening [facility] Start: 04-01-2027 Diabetes Screening Diabetes Screenin g [facility] Start: 01-28-2026 Diabetes Screening Diabetes Screenin g [facility] Start: 11-27-2025 Lipid 1996 panel - Serum or Plasma Lipid Screening [facility] Start: 11-27-2025 LIPID SCREEN LIPID SCREEN [facility] Start: 07-28-2025 DIABETES SCREEN DIABETES SCREEN [facility] Start: 07-28-2025 Diabetes Screening Diabetes Screenin g [facility] Start: 05-29-2024 BP Controlled (<130/80) BP Controlle d (<130/80) [facility] Start: 05-29-2024 Creatinine measurement Serum Creatin ine [facility] Start: 05-25-2024 Annual PCP Team Clinical Science Consultant jeff Disease Visit Annual PCP Team Chronic Disease Visit [facility] Start: 05-19-2024 Complete blood count Hemoglobin/Cheo tocart [facility] Start: 05-18-2024 GFR test (Diabetes, CKD 3-4, OR last GFR 15-59) GFR test (Diabetes, CKD 3-4, OR last GFR 15-59) [facility] Start: 05-18-2024 Hepatitis B surface antibody level LDL Cholesterol [facility] Start: 04-25-2024 Annual PCP Team Clinical Science Consultant jeff Disease Visit Annual PCP Team Chronic Disease Visit [facility] Start: 03-28-2024 Colonoscopy COLONOSCOPY [facility] Start: 03-28-2024 COLORECTAL CANCER SCREENING COLORECTAL CANCER SCREENING [facility] Start: 03-28-2024 Screening for malign ant neoplasm of colon [facility] Start: 03-14-2024 BP Controlled (<130/80) BP Controlle d (<130/80) [facility] Start: 01-29-2024 BP Controlled (<130/80) BP Controlle d (<130/80) [facility] Start: 01-29-2024 Complete blood count Hemoglobin/Cheo tocrit [facility] Start: 01-29-2024 Creatinine measurement Serum Creatin ine [facility] Start: 01-29-2024 Hemoglobin/Hematocrit Hemoglobin/Hem atocrit [facility] Start: 01-29-2024 Hepatitis B surface antibody level LDL Cholesterol [facility] Start: 01-29-2024 Serum Creatinine Serum Creatinine [facility] Start: 01-15-2024 BP Controlled (<130/80) BP Controlle d (<130/80) [facility] Start: 11-28-2023 DIABETES SCREEN DIABETES SCREEN [facility] Start: 11-16-2023 End: 01-16-2024 25-hydroxyvitamin D3 [Mass/volume] in Serum or Plasma VITAMIN D 25 HYDROXY Lab Routine Benign hypertension with chronic kidney disease, stage III (HCC) Stage 3b chronic kidney disease (HCC) Hyperlipidemia, unspecified hyperlipidemia type Expected: 11/16/2023, Expires: 01/16/2024 [facility] Work Phone: Comment on above: Expected: 11/16/2023 , Expires: 01/16/2024 Start: 11-16-2023 End: 01-16-2024 ALBUMIN/CREAT RATIO RND UR ALBUMIN/CREAT RATIO RND UR Lab Routine Benign hypertension with chronic kidney disease, stage III (HCC) Stage 3b chronic kidney disease (HCC) Hyperlipidemia, unspecified hyperlipidemia type Expected: 11/16/2023, Expires: 01/16/2024 [facility] Work Phone: Comment on above: Expected: 11/16/2023 , Expires: 01/16/2024 Start: 11-16-2023 End: 01-16-2024 CBC panel - Blood by Automated count CBC Lab Routine Benign hypertension with chronic kidney disease, stage III (HCC) Stage 3b chronic kidney disease (HCC) Hyperlipidemia, unspecified hyperlipidemia type Expected: 11/16/2023, Expires: 01/16/2024 [facility] Work Phone: Comment on above: Expected: 11/16/2023 , Expires: 01/16/2024 Start: 11-16-2023 End: 01-16-2024 Creatinine [Mass/volume] in Urine collected for unspecified duration CREATININE RANDOM UR Lab Routine Benign hypertension with chronic kidney disease, stage III (HCC) Stage 3b chronic kidney disease (HCC) Hyperlipidemia, unspecified hyperlipidemia type Expected: 11/16/2023, Expires: 01/16/2024 [facility] Work Phone: Comment on above: Expected: 11/16/2023 , Expires: 01/16/2024 Start: 11-16-2023 End: 01-16-2024 Parathyrin.intact [Mass/volume] in Serum or Plasma PTH INTACT BLD Lab Routine Benign hypertension with chronic kidney disease, stage III (HCC) Stage 3b chronic kidney disease (HCC) Hyperlipidemia, unspecified hyperlipidemia type Expected: 11/16/2023, Expires: 01/16/2024 [facility] Work Phone: Comment on above: Expected: 11/16/2023 , Expires: 01/16/2024 Start: 11-16-2023 End: 01-16-2024 Protein [Mass/volume] in Urine PROTEIN RANDOM UR Lab Routine Benign hypertension with chronic kidney disease, stage III (HCC) Stage 3b chronic kidney disease (HCC) Hyperlipidemia, unspecified hyperlipidemia type Expected: 11/16/2023, Expires: 01/16/2024 [facility] Work Phone: Comment on above: Expected: 11/16/2023 , Expires: 01/16/2024 Start: 11-16-2023 End: 01-16-2024 Renal function 2000 panel - Serum or Plasma RENAL FUNCTION PANEL Lab Routine Benign hypertension with chronic kidney disease, stage III (HCC) Stage 3b chronic kidney disease (HCC) Hyperlipidemia, unspecified hyperlipidemia type Expected: 11/16/2023, Expires: 01/16/2024 [facility] Work Phone: Comment on above: Expected: 11/16/2023 , Expires: 01/16/2024 Start: 10-22-2023 ANNUAL PCP TEAM HOTEL VALET ATTENDANT JEFF DISEASE VISIT ANNUAL PCP TEAM CHRONIC DISEASE VISIT [facility] Start: 10-22-2023 BP CONTROLLED (<130/80) BP CONTROLLE D (<130/80) [facility] Start: 10-22-2023 SHINGRIX VACCINE (1 of 2) SHINGRIX VACCINE (1 of 2) [facility] Comment on above: Postponed from 04/04 (Declined at this time) Start: 10-22-2023 Urine microalbumin profile [facility] Comment on above: Postponed from 06/10 (Declined at this time) Start: 07-29-2023 HEMOGLOBIN/HEMATOCRIT HEMOGLOBIN/HEM ATOCRIT [facility] Start: 07-29-2023 SERUM CREATININE SERUM CREATININE Cl [facility] Start: 07-27-2023 End: 10-26-2023 Basic metabolic 2000 panel - Serum or Plasma BASIC METABOLIC PNL Lab Routine Paroxysmal atrial fibrillation (HCC) Expected: 07/27/2023 (Approximate), Expires: 10/26/2023 [facility] Work Phone: Comment on above: Expected: 07/27/2023 (Approximate), Expires: 10/26/2023 Start: 07-27-2023 End: 10-26-2023 CBC W Auto Differential panel - Blood CBC + DIFF Lab Routine Paroxysmal atrial fibrillation (HCC) Expected: 07/27/2023 (Approximate), Expires: 10/26/2023 [facility] Work Phone: Comment on above: Expected: 07/27/2023 (Approximate), Expires: 10/26/2023 Start: 07-27-2023 End: 10-26-2023 Magnesium [Mass/volume] in Serum or Plasma MAGNESIUM BLD Lab Routine Paroxysmal atrial fibrillation (HCC) Expected: 07/27/2023 (Approximate), Expires: 10/26/2023 [facility] Work Phone: Comment on above: Expected: 07/27/2023 (Approximate), Expires: 10/26/2023 Start: 07-27-2023 End: 02-27-2024 Radiologic exam chest 2 views XR CHEST 2V FRONTAL/LAT Radiology Routine Paroxysmal atrial fibrillation (HCC) Expected: 07/27/2023 (Approximate), Expires: 02/27/2024 [facility] Work Phone: Comment on above: Expected: 07/27/2023 (Approximate), Expires: 02/27/2024 Start: 06-13-2023 End: 09-12-2023 Natriuretic peptide.B prohormone N-Terminal [Mass/volume] in Serum or Plasma NT PRO BNP Lab Routine Paroxysmal atrial fibrillation (HCC) Expected: 06/13/2023, Expires: 09/12/2023 [facility] Work Phone: Comment on above: Expected: 06/13/2023 , Expires: 09/12/2023 Start: 05-17-2023 End: 05-17-2023 Patient education based on identified need [facility] Start: 02-28-2023 Advance Directive Discussion Advance Directive Discussion [facility] Start: 02-28-2023 Annual Wellness Visi t (Medicare Advantage) Annual Wellness Visit (Medicare Advantage) [facility] Start: 02-28-2023 Behavioral Health Screening Behavioral Health Screening [facility] Start: 02-28-2023 Depression Assessment Depression Ass essment [facility] Start: 01-27-2023 End: 03-29-2023 Basic metabolic 2000 panel - Serum or Plasma BASIC METABOLIC PNL Lab Routine Paroxysmal atrial fibrillation (HCC) Hypertension, unspecified type Atherosclerotic peripheral vascular disease with intermittent claudication (HCC) Expected: 01/27/2023, Expires: 03/29/2023 [facility] Work Phone: Comment on above: Expected: 01/27/2023 , Expires: 03/29/2023 Start: 01-27-2023 End: 03-29-2023 CBC W Auto Differential panel - Blood CBC + DIFF Lab Routine Paroxysmal atrial fibrillation (HCC) Hypertension, unspecified type Atherosclerotic peripheral vascular disease with intermittent claudication (HCC) Expected: 01/27/2023, Expires: 03/29/2023 [facility] Work Phone: Comment on above: Expected: 01/27/2023 , Expires: 03/29/2023 Start: 01-27-2023 End: 03-29-2023 Magnesium [Mass/volume] in Serum or Plasma MAGNESIUM BLD Lab Routine Paroxysmal atrial fibrillation (HCC) Hypertension, unspecified type Atherosclerotic peripheral vascular disease with intermittent claudication (HCC) Expected: 01/27/2023, Expires: 03/29/2023 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 Work Phone: Comment on above: Expected: 01/21/2023 , Expires: 03/23/2023 Start: 11-22-2022 End: 07-29-2023 OUTSIDE VENDOR CARDIAC OUTPATIENT EXTENDED RHYTHM RECORDING (WITHOUT TELEMETRY) OUTSIDE VENDOR CARDIAC OUTPATIENT EXTENDED RHYTHM RECORDING (WITHOUT TELEMETRY) Holter Routine Paroxysmal atrial fibrillation (HCC) Hypertension, unspecified type Atherosclerotic peripheral vascular disease with intermittent claudication (HCC) Expected: 11/22/2022, Expires: 07/29/2023 [facility] Work Phone: Comment on above: Expected: 11/22/2022 , Expires: 07/29/2023 Start: 10-29-2022 Influenza vaccination [facility] Start: 10-26-2022 HEMOGLOBIN/HEMATOCRIT HEMOGLOBIN/HEM ATOCRIT [facility] Start: 10-26-2022 SERUM CREATININE SERUM CREATININE Cl [facility] Start: 10-12-2022 ANNUAL PCP TEAM HOTEL VALET ATTENDANT JEFF DISEASE VISIT ANNUAL PCP TEAM CHRONIC DISEASE VISIT [facility] Start: 07-26-2022 End: 09-25-2022 Basic metabolic 2000 panel - Serum or Plasma BASIC METABOLIC PNL Lab Routine Paroxysmal atrial fibrillation (HCC) History of ST elevation myocardial infarction (STEMI) PAF (paroxysmal atrial fibrillation) (HCC) Expected: 07/26/2022, Expires: 09/25/2022 [facility] Work Phone: Comment on above: Expected: 07/26/2022 , Expires: 09/25/2022 Start: 07-26-2022 End: 09-25-2022 CBC W Auto Differential panel - Blood CBC + DIFF Lab Routine Paroxysmal atrial fibrillation (HCC) History of ST elevation myocardial infarction (STEMI) PAF (paroxysmal atrial fibrillation) (HCC) Expected: 07/26/2022, Expires: 09/25/2022 [facility] Work Phone: Comment on above: Expected: 07/26/2022 , Expires: 09/25/2022 Start: 07-26-2022 End: 09-25-2022 Magnesium [Mass/volume] in Serum or Plasma MAGNESIUM BLD Lab Routine Paroxysmal atrial fibrillation (HCC) History of ST elevation myocardial infarction (STEMI) PAF (paroxysmal atrial fibrillation) (HCC) Expected: 07/26/2022, Expires: 09/25/2022 [facility] Work Phone: Comment on above: Expected: 07/26/2022 , Expires: 09/25/2022 Start: 04-28-2022 End: 01-26-2023 OUTSIDE VENDOR CARDIAC OUTPATIENT EXTENDED RHYTHM RECORDING (WITHOUT TELEMETRY) OUTSIDE VENDOR CARDIAC OUTPATIENT EXTENDED RHYTHM RECORDING (WITHOUT TELEMETRY) Holter Routine Paroxysmal atrial fibrillation (HCC) History of ST elevation myocardial infarction (STEMI) PAF (paroxysmal atrial fibrillation) (HCC) Expected: 04/28/2022, Expires: 01/26/2023 [facility] Work Phone: Comment on above: Expected: 04/28/2022 , Expires: 01/26/2023 Start: 03-23-2022 ANNUAL PCP TEAM HOTEL VALET ATTENDANT JEFF DISEASE VISIT ANNUAL PCP TEAM CHRONIC DISEASE VISIT [facility] Start: 03-23-2022 BP CONTROLLED (<130/80) BP CONTROLLE D (<130/80) [facility] Start: 02-28-2022 ADVANCE DIRECTIVE DISCUSSION ADVANCE DIRECTIVE DISCUSSION [facility] Start: 02-28-2022 DEPRESSION ASSESSMENT DEPRESSION ASS ESSMENT [facility] Start: 02-10-2022 End: 04-12-2022 Lipid 1996 panel - Serum or Plasma LIPID PANEL BASIC Lab Routine Mixed hyperlipidemia Expected: 02/10/2022 (Approximate), Expires: 04/12/2022 [facility] Work Phone: Comment on above: Expected: 02/10/2022 (Approximate), Expires: 04/12/2022 Start: 11-27-2021 Hepatitis B surface antibody level LDL CHOLESTEROL [facility] Start: 11-27-2021 SERUM CREATININE SERUM CREATININE Cl [facility] Start: 10-29-2021 Influenza vaccination INFLUENZA (#1) [facility] Start: 09-27-2021 Adult depression screening assessment DEPRESSION SCREENING [facility] Start: 09-18-2021 COVID-19 VACCINE (#1) COVID-19 VACCI NE (#1) [facility] Comment on above: Postponed from 04/04 (Declined at this time) Start: 09-18-2021 COVID-19 VACCINE (1) COVID-19 VACCIN E (1) [facility] Comment on above: Postponed from 04/04 (Declined at this time) Start: 07-29-2021 Mammography [facility] Start: 07-29-2021 Screening for malign ant neoplasm of breast Mammogram Screening [facility] Start: 07-18-2021 HEMOGLOBIN/HEMATOCRIT HEMOGLOBIN/HEM ATOCRIT [facility] Start: 03-20-2021 BP CONTROLLED (<130/80) BP CONTROLLE D (<130/80) [facility] Start: 02-28-2021 ADVANCE DIRECTIVE DISCUSSION ADVANCE DIRECTIVE DISCUSSION [facility] Start: 02-28-2021 DEPRESSION ASSESSMENT DEPRESSION ASS ESSMENT [facility] Start: 06-10-2016 DTaP/Tdap/Td vaccine (1 - Tdap) DTaP/Tdap/Td vaccine (1 - Tdap) [facility] Start: 06-10-2016 Urine microalbumin profile DTAP,TDAP,TD (1 - Tdap) [facility] Start: 2011 Respiratory Syncytia l Virus (RSV) or age 60 yrs+ (1 - 1-dose 60+ series) Respiratory Syncytial Virus (RSV) or age 60 yrs+ (1 - 1-dose 60+ series) [facility] Start: 2011 RSV Vaccine (1 - 1-d ose 60+ series) RSV Vaccine (1 - 1-dose 60+ series) [facility] Start: 2001 Screening for malign ant neoplasm of breast Breast cancer screen [facility] Start: 2001 Shingles vaccine (1 of 2) Shingles vaccine (1 of 2) [facility] Start: 2001 SHINGRIX VACCINE (1 of 2) SHINGRIX VACCINE (1 of 2) [facility] Start: 1996 COLOGUARD (FIT-DNA) COLOGUARD (FIT-D NA) [facility] Start: [address] COLONOGRAPHY [facility] Start: 1996 FECAL OCCULT BLOOD FECAL OCCULT BLOO D [facility] Start: 1996 Screening for malign ant neoplasm of colon [facility] Start: 1996 [facility] Start: 1969 Hepatitis C screening Hepatitis C sc reen [facility] Start: 1963 Depression Screen Depression Screen [employer] Start: 1961 Lipid panel Lipids [facility] Start: 1951 COVID-19 VACCINE (#1) COVID-19 VACCI NE (#1) [facility] End: 08-24-2023 CBC W Auto Differential panel - Blood CBC auto differential Lab Routine Tomorrow AM for 99 Occurrences starting 05/18/2023 until 08/24/2023, 2 completed [employer]. Comment on above: Tomorrow AM for 99 O ccurrences starting 05/18/2023 until 08/24/2023, 2 completed End: 08-24-2023 Comprehensive Metabolic Panel w/ Reflex to MG Comprehensive Metabolic Panel w/ Reflex to MG Lab Routine Tomorrow AM for 99 Occurrences starting 05/18/2023 until 08/24/2023, 2 completed [employer] Comment on above: Tomorrow AM for 99 O ccurrences starting 05/18/2023 until 08/24/2023, 2 completed End: 12-11-2022 Ct orbit sella/post fossa/ear w/o contrast matrl CT TEMP BONES WO IVCON Radiology Routine Pulsatile tinnitus, left ear Lightheadedness 1 Occurrences starting 11/11/2021 until 12/11/2022 [facility] Work Phone: Comment on above: 1 Occurrences starti ng 11/11/2021 until 12/11/2022 End: 05-18-2023 Culture, Urine [employer]. Comment on above: One Time for 1 Occur rences starting 05/18/2023 until 05/18/2023 End: 08-11-2022 ECG COMPLETE ECG COMPLETE ECG Routine Paroxysmal atrial fibrillation (HCC) 1 Occurrences starting 08/11/2021 until 08/11/2022 [facility] Work Phone: Comment on above: 1 Occurrences starti ng 08/11/2021 until 08/11/2022 End: 01-26-2023 ECG COMPLETE ECG COMPLETE ECG Routine Paroxysmal atrial fibrillation (HCC) History of ST elevation myocardial infarction (STEMI) PAF (paroxysmal atrial fibrillation) (HCC) 1 Occurrences starting 01/26/2022 until 01/26/2023 [facility] Work Phone: Comment on above: 1 Occurrences starti ng 01/26/2022 until 01/26/2023 End: 07-29-2023 ECG COMPLETE ECG COMPLETE ECG Routine Paroxysmal atrial fibrillation (HCC) Hypertension, unspecified type Atherosclerotic peripheral vascular disease with intermittent claudication (HCC) 1 Occurrences starting 07/28/2022 until 07/29/2023 [facility] Work Phone: Comment on above: 1 Occurrences starti ng 07/28/2022 until 07/29/2023 ECG COMPLETE ECG COMPLETE ECG 01/28/2023 10:[address] 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 Comment on above: One Time for 1 Occur rences starting 05/18/2023 until 05/18/2023 EKG 12 Lead EKG 12 Lead ECG Routine 05/19/2023 5:18 AM EDT [employer]. End: 05-19-2023 Hemoglobin A1c/Hemoglobin.total in Blood Hemoglobin A1C Lab Routine Tomorrow AM for 1 Occurrences starting 05/19/2023 until 05/19/2023 [employer]. Comment on above: Tomorrow AM for 1 Oc currences starting 05/19/2023 until 05/19/2023 Hemoglobin A1c/Hemoglobin.total in Blood Hemoglobin A1C Lab Routine 05/19/2023 5:30 AM EDT [employer]. End: 05-19-2023 Lipid panel Lipid Panel Lab Routine Tomorrow AM for 1 Occurrences starting 05/19/2023 until 05/19/2023 [employer]. Comment on above: Tomorrow AM for 1 Oc currences starting 05/19/2023 until 05/19/2023 Lipid panel Lipid Panel Lab Routine 05/19/2023 5:30 AM EDT [employer]. End: 04-02-2023 ESTHER SCREENING ESTHER SCREENING Radiology Routine Encounter for screening mammogram for breast cancer 1 Occurrences starting 03/03/2022 until 04/02/2023 [facility] Work Phone: Comment on above: 1 Occurrences starti ng 03/03/2022 until 04/02/2023 End: 03-03-2024 ESTHER SCREENING ESTHER SCREENING Radiology Routine Encounter for screening mammogram for breast cancer 1 Occurrences starting 02/02/2023 until 03/03/2024 [facility] Work Phone: Comment on above: 1 Occurrences starti ng 02/02/2023 until 03/03/2024 MR Abdomen WO and W contrast IV MRI ABDOMEN W WO CONTRAST MRCP Imaging Routine 05/18/2023 1:05 PM EDT [employer]. OUTSIDE VENDOR CARDI AC OUTPATIENT EXTENDED RHYTHM RECORDING (WITHOUT TELEMETRY) OUTSIDE VENDOR CARDIAC OUTPATIENT EXTENDED RHYTHM RECORDING (WITHOUT TELEMETRY) Holter Routine Paroxysmal atrial fibrillation (HCC) Ordered: 06/26/2021 [facility] Work Phone: Comment on above: Ordered: 06/26/2021 OUTSIDE VENDOR CARDI AC OUTPATIENT EXTENDED RHYTHM RECORDING (WITHOUT TELEMETRY) OUTSIDE VENDOR CARDIAC OUTPATIENT EXTENDED RHYTHM RECORDING (WITHOUT TELEMETRY) Holter Routine Paroxysmal atrial fibrillation (HCC) History of ST elevation myocardial infarction (STEMI) PAF (paroxysmal atrial fibrillation) (HCC) Ordered: 01/26/2022 [facility] Work Phone: Comment on above: Ordered: 01/26/2022 OUTSIDE VENDOR CARDI AC OUTPATIENT EXTENDED RHYTHM RECORDING (WITHOUT TELEMETRY) OUTSIDE VENDOR CARDIAC OUTPATIENT EXTENDED RHYTHM RECORDING (WITHOUT TELEMETRY) Holter Routine Paroxysmal atrial fibrillation (HCC) Ordered: 01/28/2023 [facility] Work Phone: Comment on above: Ordered: 01/28/2023 Oxygen therapy [[facility] Data Set] Initiate Oxygen Therapy Protocol Respiratory Care Routine As Needed until discontinued starting 05/17/2023 [facility] [employer] Comment on above: As Needed until disc ontinued starting 05/17/2023 End: 10-30-2022 PVR ANK PRESS [facility] PVR ANK PRESS [facility] Vascular Lab Routine PVD (peripheral vascular disease) (HCC) 1 Occurrences starting 10/30/2021 until 10/30/2022 [facility] Work Phone: Comment on above: 1 Occurrences starti ng 10/30/2021 until 10/30/2022 End: 11-16-2023 PVR ANK PRESS [facility] PVR ANK PRESS [facility] Vascular Lab Routine PVD (peripheral vascular disease) (HCC) Aortoiliac occlusive disease (HCC) Carotid artery stenosis, asymptomatic, bilateral 1 Occurrences starting 11/15/2022 until 11/16/2023 [facility] Work Phone: Comment on above: 1 Occurrences starti ng 11/15/2022 until 11/16/2023 End: 02-25-2023 Radiologic exam chest 2 views XR CHEST 2V FRONTAL/LAT Radiology Routine Paroxysmal atrial fibrillation (HCC) History of ST elevation myocardial infarction (STEMI) PAF (paroxysmal atrial fibrillation) (HCC) 1 Occurrences starting 01/26/2022 until 02/25/2023 [facility] Work Phone: Comment on above: 1 Occurrences starti ng 01/26/2022 until 02/25/2023 End: 01-15-2024 [facility] Audiology Routine Pulsatile tinnitus, left ear 1 Occurrences starting 01/14/2023 until 01/15/2024 [facility] Work Phone: Comment on above: 1 Occurrences starti ng 01/14/2023 until 01/15/2024 End: 11-16-2023 US ABD AORTA COMPLETE [facility]AS LAB US ABD AORTA COMPLETE VAS LAB Vascular Lab Routine PVD (peripheral vascular disease) (HCC) Aortoiliac occlusive disease (HCC) Carotid artery stenosis, asymptomatic, bilateral 1 Occurrences starting 11/15/2022 until 11/16/2023 [facility] Work Phone: Comment on above: 1 Occurrences starti ng 11/15/2022 until 11/16/2023 End: 11-16-2023 US CAROTID ARTERIES [facility] US CAROTID ARTERIES [facility] Vascular Lab Routine PVD (peripheral vascular disease) (HCC) Aortoiliac occlusive disease (HCC) Carotid artery stenosis, asymptomatic, bilateral 1 Occurrences starting 11/15/2022 until 11/16/2023 [facility] Work Phone: Comment on above: 1 Occurrences starti ng 11/15/2022 until 11/16/2023 [facility] Immunizations Immunization Date Immunization Notes Care Provider Conor marr 11-27-2020 influenza, high-dose , quadrivalent vaccine (FLUZONE HIGH DOSE QUADRIVALENT) Risa Warner APRN.COMMERCIAL GREEN BUILDING DESIGNER Work Phone: [facility] 11-27-2020 influenza virus vacc ine, unspecified formulation Risa Warner STAGE SETTINGS PAINTER.COMMERCIAL GREEN BUILDING DESIGNER Work Phone: [facility] 03-20-2020 influenza, high-dose , quadrivalent vaccine (FLUZONE HIGH DOSE QUADRIVALENT) Risa Warner STAGE SETTINGS PAINTER.COMMERCIAL GREEN BUILDING DESIGNER Work Phone: [facility] 12-01-2018 influenza, high dose seasonal, preservative-free Risa Conrado STAGE SETTINGS PAINTER.COMMERCIAL GREEN BUILDING DESIGNER Work Phone: [facility] Work Phone: 12-01-2018 pneumococcal polysaccharide vaccine, 23 valent Risa Warner STAGE SETTINGS PAINTER.COMMERCIAL GREEN BUILDING DESIGNER Work Phone: [facility] Work Phone: 01-25-2017 influenza, high dose seasonal, preservative-free Risa Conrado STAGE SETTINGS PAINTER.COMMERCIAL GREEN BUILDING DESIGNER Work Phone: [facility] 06-09-2016 pneumococcal conjuga te vaccine, 13 valent Risa Warner STAGE SETTINGS PAINTER.COMMERCIAL GREEN BUILDING DESIGNER Work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 [facility] Narrative* Problem [...] of this encounter (statuses as of 12/08/2021) [facility] Narrative* Problem [...] of this encounter (statuses as of 12/08/2021) [facility] Narrative* Problem [...] of this encounter (statuses as of 12/09/2021) [facility] Narrative* Problem [...] of this encounter (statuses as of 12/17/2021) [facility] Narrative* Problem [...] of this encounter (statuses as of 02/02/2022) [facility] Narrative* Problem [...] of this encounter (statuses as of 03/08/2022) [facility] Narrative* Problem [...] of this encounter (statuses as of 03/11/2022) [facility] Narrative* Problem [...] of this encounter (statuses as of 05/27/2022) [facility] Narrative* Problem [...] of this encounter (statuses as of 08/02/2022) [facility] Narrative* Problem [...] of this encounter (statuses as of 10/21/2022) [facility] Narrative* Problem [...] of this encounter (statuses as of 11/15/2022) [facility] Narrative* Problem [...] of this encounter (statuses as of 11/15/2022) [facility] Narrative* Problem [...] of this encounter (statuses as of 01/14/2023) [facility] Narrative* Problem [...] of this encounter (statuses as of 01/28/2023) [facility]ative* Problem [...] of this encounter (statuses as of 02/02/2023) [facility]* Problem [...] of this encounter (statuses as of 02/07/2023) [facility]* Problem [...] of this encounter (statuses as of 04/01/2023) [facility]ative* Problem [...] of this encounter (statuses as of 05/20/2023) [facility]* Problem [...] of this encounter (statuses as of 05/31/2023) [facility] N[facility]ative* Problem [...] of this encounter (statuses as of 05/31/2023) [facility]ative* Problem [...] of this encounter (statuses as of 06/03/2023) [facility]* Diagnosis Paroxysmal atrial fibrillation (HCC)- Primary Atrial fibrillation [facility] Diagnosis Paroxysmal atrial fibrillation (HCC)- Primary Atrial fibrillation Coronary artery disease involving te-[place] coronary 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 pectoris Hypertension, unspecified type Mixed hyperlipidemia Non-rheumatic mitral regurgitation Mitral valve disorders PVD (peripheral vascular disease) (HCC) Peripheral vascular disease, unspecified [facility]* Diagnosis Mixed hyperlipidemia Coronary artery disease involving te[place]mo[place] coronary 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 pectoris [facility]* Diagnosis Tinnitus, unspecified laterality- Primary Tension-type headache, not intractable, unspecified chronicity pattern [facility] Diagnosis Tension-type headache, not intractable, unspecified chronicity pattern- Primary Tinnitus, unspecified laterality Bilateral carotid artery stenosis Occlusion and stenosis of carotid artery without mention of cerebral infarction [facility]* Diagnosis PVD (peripheral vascular disease) ([facility])- Primary Peripheral vascular disease, unspecified [facility]* Diagnosis Pulsatile tinnitus, left ear- Primary Lightheadedness Dizziness and giddiness Tinnitus of left ear Unspecified tinnitus Tension-type headache, not intractable, unspecified chronicity pattern [facility] Diagnosis Tobacco abuse Tobacco use disorder [facility] Diagnosis Essential hypertension Unspecified essential hypertension [facility]* Diagnosis 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 Carotid artery stenosis, asymptomatic, bilateral [facility] Diagnosis Paroxysmal atrial fibrillation (HCC)- Primary Atrial fibrillation History of ST elevation myocardial infarction (STEMI) Old myocardial infarction PAF (paroxysmal atrial fibrillation) (HCC) Atrial fibrillation [facility]* Diagnosis Encounter for screening mammogram for breast cancer [facility] Diagnosis Paroxysmal atrial fibrillation (HCC) Atrial fibrillation [facility] Diagnosis Paroxysmal atrial fibrillation (HCC)- Primary Atrial fibrillation Hypertension, unspecified type Atherosclerotic peripheral vascular disease with intermittent claudication (HCC) Atherosclerosis of [place] arteries of the extremities with intermittent claudication 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 documented in this encounter [facility] note* Diagnosis Encounter for Medicare annual wellness exam- Primary Routine general medical examination at a health care facility Coronary artery disease involving te[place] coronary 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 pectoris Mixed hyperlipidemia Paroxysmal atrial fibrillation (HCC) Atrial fibrillation Essential hypertension Unspecified essential hypertension Atherosclerotic peripheral vascular disease with intermittent claudication (HCC) Atherosclerosis of [place] arteries of the extremities with intermittent claudication CKD (chronic kidney disease) stage 4, GFR 15-29 ml/min (HCC) Chronic kidney disease, Stage IV (severe) documented in this encounter [facility] note* Diagnosis Benign hypertension with chronic kidney disease, stage III (HCC)- Primary 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 through stage IV, or unspecified Stage 3b chronic kidney disease (HCC) Hyperlipidemia, unspecified hyperlipidemia type documented in this encounter [facility] note* Diagnosis Carotid artery stenosis, asymptomatic, bilateral- Primary PVD (peripheral vascular disease) ([facility]) Peripheral vascular disease, unspecified 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 documented in this encounter [facility] note* Diagnosis APPOINTMENT CANCELLED- Primary Pulsatile tinnitus, left ear documented in this encounter [facility] note* Diagnosis Essential hypertension Unspecified essential hypertension documented in this encounter [facility] note* Diagnosis Paroxysmal atrial fibrillation (HCC)- Primary Atrial fibrillation 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 documented in this encounter [facility] note* Diagnosis Encounter for screening mammogram for breast cancer documented in this encounter [facility] note* Diagnosis Right sided abdominal pain- Primary Abdominal pain, unspecified site Chest pain, unspecified type Right sided abdominal pain Abdominal pain, unspecified site Coronary artery disease involving te[place] coronary 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 pectoris Mixed hyperlipidemia Essential hypertension Unspecified essential hypertension Acute deep vein thrombosis (DVT) of distal vein of right lower extremity (HCC) Essential hypertension Unspecified essential hypertension Coronary artery disease involving [place] coronary 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 pectoris documented in this encounter [facility] note* Diagnosis Medication management- Primary Encounter for long-term (current) use of other medications [facility] Diagnosis Chronic right hip pain- Primary Pain in joint, pelvic region and thigh Spinal stenosis of lumbar region, unspecified whether neurogenic claudication present [facility]* Diagnosis Paroxysmal atrial fibrillation (HCC)- Primary Atrial fibrillation Acute on chronic heart failure with preserved ejection fraction (HCC) [facility]arr[facility] History of Present Illness not supported for this document type No History of Present Illness [facility] Work Phone: Patient problem outcome Narrative Includes: Evaluations & Outcomes for active Goals No Outcomes [facility] Work Phone: Reason for referral (narrative)* Outpatient Procedure (Routine) - Closed Specialty Diagnoses / Procedures Referred By Contac t Referred To Contact [facility] Diagnoses Paroxysmal atrial fibrillation (HCC) Procedures ECG COMPLETE ECG ROUTINE ECG W/LEAST 12 LDS W/I&R Rupesh Gu DO [address] [place] [address] [facility] [address] [address] Referral ID Status Reason Start Date Expiration Date V isits Requested Visits Authorized [id number] Closed Auto-Generate d Referral 08/11/2021 08/11/2022 1 1 [facility] for referral (narrative)* Outpatient Procedure (Routine) - Authorized Specialty Diagnoses / Procedures Referred By Contac t Referred To Contact [facility] Diagnoses PVD (peripheral vascular disease) ([facility]) Procedures PVR ANK PRESS LINSEY VAS LAB NON-INVAS PHYSIOLOGIC STD EXTREMITY ART 2 LEVEL Renae German APRN.CNP [address] [place] [address] [facility] [address] [address] Referral ID Status Reason Start Date Expiration Date Visits Requested Visits Authorized [id number] Authorized Auto-Generat ed Referral 10/30/2021 10/30/2022 1 1 [facility] for referral (narrative)* Outpatient Procedure (Routine) - Pending Review Specialty Diagnoses / Procedures Referred By Imanac t Referred To Contact [facility] Diagnoses Paroxysmal atrial fibrillation (HCC) History of ST elevation myocardial infarction (STEMI) PAF (paroxysmal atrial fibrillation) (HCC) Procedures ECG COMPLETE ECG ROUTINE ECG W/LEAST 12 LDS W/I&[place] [address] [place] [address] [facility] [address] [address] Referral ID Status Reason Start Date Expiration Date Visits Requested Visits Authorized [id number] Pending Review Auto-Generat ed Referral 2 01/26/2023 1 1 [facility] for referral (narrative)* Diagnostic Procedure Only (Routine) - Pending Review Specialty Diagnoses / Procedures Referred By Manuel t Referred To Contact [facility] Diagnoses Encounter for screening mammogram for breast cancer Procedures ESTHER SCREENING SCREENING MAMMOGRAPHY BI 2-VIEW [place] [address] [place] [address] [facility] [address] [place] [id number] Referral ID Status Reason Start Date Expiration Date Visits Requested Visits Authorized [id number] Pending Review Auto-Generat ed Referral 03/03/2022 04/02/2023 1 1 [facility] for referral (narrative)* Outpatient Procedure (Routine) - Pending Review Specialty Diagnoses / Procedures Referred By Manuel t Referred To Contact [facility] Diagnoses Paroxysmal atrial fibrillation (HCC) Hypertension, unspecified type Atherosclerotic peripheral vascular disease with intermittent claudication (HCC) Procedures ECG COMPLETE ECG ROUTINE ECG W/LEAST 12 LDS W/I&[place] [address] [place] [address] [address] Referral ID Status Reason Start Date Expiration Date Visits Requested Visits Authorized [id number] Pending Review Auto-Generat ed Referral 07/28/2022 07/28/2023 1 1 [facility] for referral (narrative)* Outpatient Procedure (Routine) - Authorized Specialty Diagnoses / Procedures Referred By Contac t Referred To Contact [facility] Diagnoses PVD (peripheral vascular disease) (HCC) Aortoiliac occlusive disease (HCC) Carotid artery stenosis, asymptomatic, bilateral Procedures US ABD AORTA COMPLETE VAS LAB DUP-SCAN AORTA IVC ILIAC VASCL/BPGS COMPLETE Sergo Tucker MD [address] [place], [place] [id number] [address] [address] Referral ID Status Reason Start Date Expiration Date Visits Requested Visits Authorized [id number] Authorized Auto-Generat ed Referral 11/15/2022 11/15/2023 1 1 * Outpatient Procedure (Routine) - Authorized Specialty Diagnoses / Procedures Referred By Contac t Referred To Contact [facility] Diagnoses PVD (peripheral vascular disease) (HCC) Aortoiliac occlusive disease (HCC) Carotid artery stenosis, asymptomatic, bilateral Procedures PVR ANK PRESS LINSEY VAS LAB NON-INVAS PHYSIOLOGIC STD EXTREMITY ART 2 LEVEL Sergo Tucker MD [address] [place] [address] [address] Referral ID Status Reason Start Date Expiration Date Visits Requested Visits Authorized [id number] Authorized Auto-Generat ed Referral 11/15/2022 11/15/2023 1 1 * Outpatient Procedure (Routine) - Authorized Specialty Diagnoses / Procedures Referred By Contac t Referred To Contact [facility] Diagnoses PVD (peripheral vascular disease) (HCC) Aortoiliac occlusive disease (HCC) Carotid artery stenosis, asymptomatic, bilateral Procedures US CAROTID ARTERIES [facility] DUPLEX SCAN EXTRACRANIAL ART COMPL BI STUDY Sergo Tucker MD [address] [address] Referral ID Status Reason Start Date Expiration Date Visits Requested Visits Authorized [id number] Authorized Auto-Generat ed Referral 11/15/2022 11/15/2023 1 1 [facility] for referral (narrative)* Outpatient Procedure (Routine) - Pending Review Specialty Diagnoses / Procedures Referred By Contac t Referred To Contact [facility] Diagnoses Paroxysmal atrial fibrillation (HCC) Procedures ECG COMPLETE ECG ROUTINE ECG W/LEAST 12 LDS W/I&[place] [address] [place] [address] [address] Referral ID Status Reason Start Date Expiration Date Visits Requested Visits Authorized [id number] Pending Review Auto-Generat ed Referral 01/28/2023 01/28/2024 1 1 [facility] for referral (narrative)* Diagnostic Procedure Only (Routine) - Pending Review Specialty Diagnoses / Procedures Referred By Manuel preston Referred To Contact [facility] Diagnoses Encounter for screening mammogram for breast cancer Procedures ESTHER SCREENING SCREENING MAMMOGRAPHY BI 2-VIEW [place] [address] [place] [address] [facility] [address] [place] [id number] Referral ID Status Reason Start Date Expiration Date Visits Requested Visits Authorized [id number] Pending Review Auto-Generat ed Referral 02/02/2023 03/03/2024 1 1 [facility] for referral (narrative)No Reason for Referral Recorded [facility] Work Phone: Review of systems Narrative - Reported Review of Systems not supported for this document type No [facility] Summary Purpose Family History No Family History Records FoundNo Family History Records FoundNo Family History Records FoundNo Family History Records FoundNo Family History Records Found Includes: Family History in patient's chart No Family History RecordedNo Family History Records FoundNo Family History Records Found Advance Directives No Advanced Directives Records FoundDocuments on File Type Date Recorded Patient Scaleman Expl anation Advance Directive(s) 03/28/2019 10:10 AM Advance Directive(s) 07/20/2018 10:43 AM Advance Directive(s) 07/19/2018 7:10 AM Advance Directive(s) 07/14/2018 11:46 AM Advance Directive(s) 06/09/2017 12:41 PM Documents on File Type Date Recorded Patient Scaleman Expl anation Advance Directive(s) 03/28/2019 10:10 AM Advance Directive(s) 07/20/2018 10:43 AM Advance Directive(s) 07/19/2018 7:10 AM Advance Directive(s) 07/14/2018 11:46 AM Advance Directive(s) 06/09/2017 12:41 PM Documents on File Type Date Recorded Patient Scaleman Expl anation Advance Directive(s) 07/20/2018 10:43 AM Documents on File Type Date Recorded Patient Scaleman Expl anation Advance Directive(s) 07/20/2018 10:43 AM [...] Procedures CONSULT TO HEADACHE CLINIC OFFICE/OUTPATIENT [facility] MDM 60-[place] [address] [place] [address] Referral ID Status Reason Start Date Expiration Date Visits Requested Visits Authorized [id number] Pending Review PCP Requested Referral 10/12/2021 10/12/2022 1 1 Specialty Diagnoses / Procedures Referred By Contac t Referred To Contact Ent - Otolaryngology Diagnoses Tension-type headache, not intractable, unspecified chronicity pattern Tinnitus, unspecified laterality Procedures CONSULT TO ENT OFFICE/OUTPATIENT [facility] MDM 60-[place] [address] [place] [address] Referral ID Status Reason Start Date Expiration Date Visits Requested Visits Authorized [id number] Pending Review PCP Requested Referral 10/12/2021 10/12/2022 1 1 Specialty Diagnoses / Procedures Referred By Contac t Referred To Contact CT IMAGING Diagnoses Pulsatile tinnitus, left ear Lightheadedness Procedures CT TEMP BONES WO IVCON CT ORBIT SELLA/POST FOSSA/EAR W/O CONTRAST Macrina Cobian PA-C [address] [place] [address] Ct Imaging Referral ID Status Reason Start Date Expiration Date Visits Requested Visits Authorized [id number] Authorized Auto-Generat ed Referral 11/11/2021 12/11/2022 1 1 Physical Exam Physical Exam not supported for this document type No Physical Exam Recorded Additional Source Comments INFORMATION SOURCE (unrecogn ized section and content) DATE CREATED AUTHOR 08/24/2017 [facility] DATE CREATED AUTHOR AUTHOR'S ORGANIZ ATION 01/16/2022 [facility] DATE CREATED AUTHOR AUTHOR'S ORGANIZ ATION 02/26/2022 [facility] DATE CREATED AUTHOR AUTHOR'S ORGANIZ ATION 03/14/2023 [facility] DATE CREATED AUTHOR AUTHOR'S ORGANIZ ATION 05/17/2023 [facility] DATE CREATED AUTHOR AUTHOR'S ORGANIZ ATION 05/21/2023 [facility] DATE CREATED AUTHOR AUTHOR'S ORGANIZ ATION 06/04/2023 [facility] Source Comments (unrecognize d section and content) In the event this informatio n is protected by the Federal Confidentiality of Alcohol and Drug Abuse Patient Records regulations: The Federal rules restrict any use of the information to criminally investigate or prosecute any alcohol or drug abuse patient.[facility] the event this information is protected by the Federal Confidentiality of Alcohol and Drug Abuse Patient Records regulations: The Federal rules restrict any use of the information to criminally investigate or prosecute any alcohol or drug abuse patient.[facility] the event this information is protected by the Federal Confidentiality of Alcohol and Drug Abuse Patient Records regulations: The Federal rules restrict any use of the information to criminally investigate or prosecute any alcohol or drug abuse patient.[facility] the event this information is protected by the Federal Confidentiality of Alcohol and Drug Abuse Patient Records regulations: The Federal rules restrict any use of the information to criminally investigate or prosecute any alcohol or drug abuse patient.[facility] the event this information is protected by the Federal Confidentiality of Alcohol and Drug Abuse Patient Records regulations: The Federal rules restrict any use of the information to criminally investigate or prosecute any alcohol or drug abuse patient.[facility] the event this information is protected by the Federal Confidentiality of Alcohol and Drug Abuse Patient Records regulations: The Federal rules restrict any use of the information to criminally investigate or prosecute any alcohol or drug abuse patient.[facility] the event this information is protected by the Federal Confidentiality of Alcohol and Drug Abuse Patient Records regulations: The Federal rules restrict any use of the information to criminally investigate or prosecute any alcohol or drug abuse patient.[facility] the event this information is protected by the Federal Confidentiality of Alcohol and Drug Abuse Patient Records regulations: The Federal rules restrict any use of the information to criminally investigate or prosecute any alcohol or drug abuse patient.[facility] the event this information is protected by the Federal Confidentiality of Alcohol and Drug Abuse Patient Records regulations: The Federal rules restrict any use of the information to criminally investigate or prosecute any alcohol or drug abuse patient.[facility] the event this information is protected by the Federal Confidentiality of Alcohol and Drug Abuse Patient Records regulations: The Federal rules restrict any use of the information to criminally investigate or prosecute any alcohol or drug abuse patient.[facility] the event this information is protected by the Federal Confidentiality of Alcohol and Drug Abuse Patient Records regulations: The Federal rules restrict any use of the information to criminally investigate or prosecute any alcohol or drug abuse patient.[facility] the event this information is protected by the Federal Confidentiality of Alcohol and Drug Abuse Patient Records regulations: The Federal rules restrict any use of the information to criminally investigate or prosecute any alcohol or drug abuse patient.[facility] the event this information is protected by the Federal Confidentiality of Alcohol and Drug Abuse Patient Records regulations: The Federal rules restrict any use of the information to criminally investigate or prosecute any alcohol or drug abuse patient.[facility] the event this information is protected by the Federal Confidentiality of Alcohol and Drug Abuse Patient Records regulations: The Federal rules restrict any use of the information to criminally investigate or prosecute any alcohol or drug abuse patient.[facility] the event this information is protected by the Federal Confidentiality of Alcohol and Drug Abuse Patient Records regulations: The Federal rules restrict any use of the information to criminally investigate or prosecute any alcohol or drug abuse patient.[facility] the event this information is protected by the Federal Confidentiality of Alcohol and Drug Abuse Patient Records regulations: The Federal rules restrict any use of the information to criminally investigate or prosecute any alcohol or drug abuse patient.[facility] the event this information is protected by the Federal Confidentiality of Alcohol and Drug Abuse Patient Records regulations: The Federal rules restrict any use of the information to criminally investigate or prosecute any alcohol or drug abuse patient.[facility] the event this information is protected by the Federal Confidentiality of Alcohol and Drug Abuse Patient Records regulations: The Federal rules restrict any use of the information to criminally investigate or prosecute any alcohol or drug abuse patient.[facility] the event this information is protected by the Federal Confidentiality of Alcohol and Drug Abuse Patient Records regulations: The Federal rules restrict any use of the information to criminally investigate or prosecute any alcohol or drug abuse patient.[facility] the event this information is protected by the Federal Confidentiality of Alcohol and Drug Abuse Patient Records regulations: The Federal rules restrict any use of the information to criminally investigate or prosecute any alcohol or drug abuse patient.[facility] the event this information is protected by the Federal Confidentiality of Alcohol and Drug Abuse Patient Records regulations: The Federal rules restrict any use of the information to criminally investigate or prosecute any alcohol or drug abuse patient.[facility] the event this information is protected by the Federal Confidentiality of Alcohol and Drug Abuse Patient Records regulations: The Federal rules restrict any use of the information to criminally investigate or prosecute any alcohol or drug abuse patient.[facility] the event this information is protected by the Federal Confidentiality of Alcohol and Drug Abuse Patient Records regulations: The Federal rules restrict any use of the information to criminally investigate or prosecute any alcohol or drug abuse patient.[facility] the event this information is protected by the Federal Confidentiality of Alcohol and Drug Abuse Patient Records regulations: The Federal rules restrict any use of the information to criminally investigate or prosecute any alcohol or drug abuse patient.[facility] the event this information is protected by the Federal Confidentiality of Alcohol and Drug Abuse Patient Records regulations: The Federal rules restrict any use of the information to criminally investigate or prosecute any alcohol or drug abuse patient.[facility] the event this information is protected by the Federal Confidentiality of Alcohol and Drug Abuse Patient Records regulations: The Federal rules restrict any use of the information to criminally investigate or prosecute any alcohol or drug abuse patient.[facility] the event this information is protected by the Federal Confidentiality of Alcohol and Drug Abuse Patient Records regulations: The Federal rules restrict any use of the information to criminally investigate or prosecute any alcohol or drug abuse patient.[facility] the event this information is protected by the Federal Confidentiality of Alcohol and Drug Abuse Patient Records regulations: The Federal rules restrict any use of the information to criminally investigate or prosecute any alcohol or drug abuse patient.[facility] the event this information is protected by the Federal Confidentiality of Alcohol and Drug Abuse Patient Records regulations: The Federal rules restrict any use of the information to criminally investigate or prosecute any alcohol or drug abuse patient.[facility] the event this information is protected by the Federal Confidentiality of Alcohol and Drug Abuse Patient Records regulations: The Federal rules restrict any use of the information to criminally investigate or prosecute any alcohol or drug abuse patient.[facility] Reason for Visit (unrecogniz ed section [...] laterality Procedures CONSULT TO ENT OFFICE/OUTPATIENT [facility] MDM 60-[place] [address] [place] [address] Referral ID Status Reason Start Date Expiration Date Visits Requested Visits Authorized [id number] Pending Review PCP Requested Referral 10/12/2021 10/12/2022 1 1 Reason Comments Follow Up Virtual Reason Comments Follow Up Reason Onset Date Comments Population Health Navigation Outreach 12/17/2021 Spouse of [facility] outreach pt Reason Comments F/U 6 Month Reason Onset Date Comments Refill Request 05/26/2022 Reason Comments Follow Up Reason Comments CPE (Medicare) Reason Comments Established Patient Follow Up Reason Onset Date Comments Population Health Navigation Outreach 03/31/2023 [facility] Outreach Reason Comments Chest Pain Sharp stabbing right sided chest pains starting 0300. Took 2 325mg asa when pain started. 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 Given 3 baby asa in office at 1122 and was given one nitro at 1129 with some improvement. Denies any n/v, slightly sob. Specialty Diagnoses / Procedures Referred By Manuel preston Referred To Contact Diagnoses Right sided abdominal pain Luis Estrella MD [address] [facility], [place] [address] [facility] [address] [place] [address] Referral ID Status Reason Start Date Expiration Date Visits Re quested Visits Authorized [id number] 1 1 Reason Comments ER/Urgent Referral Reason Comments Orders [facility] Reason Comments Patient Update Care Teams (unrecognized sec tion and content) Home Visitor Relationship Specialty Start [place] [address] [place], [place] [id number] PCP - General Internal Medicine 01/30/19 Janey Patricia DO [address] [place] [address] Primary Staff Physician Nephrology 03/26/21 Home Visitor Relationship Specialty Start Date [place]la Monterroso [place] [id number] [place] [address] PCP - General Internal Medicine 01/30/19 Janey Patricia DO [address] [place] [address] Primary Staff Physician Nephrology 03/26/21 Home Visitor Relationship Specialty Start Date End Date Kayla Monterroso MD [id number] [place] [address] PCP - General Internal Medicine 01/30/19 Janey Patricia DO [address] [place] [address] Primary Staff Physician Nephrology 03/26/21 Home Visitor Relationship Specialty Start Date End Date Kayla Monterroso MD [id number] [place] [address] PCP - General Internal Medicine 01/30/19 Janey Patricia DO [address] [place] [address] Primary Staff Physician Nephrology 03/26/21 Home Visitor Relationship Specialty Start Date End Date Kayla Monterroso MD [id number] [place] [address] PCP - General Internal Medicine 01/30/19 Janey Patricia DO [address] [place] [address] Primary Staff Physician Nephrology 03/26/21 Home Visitor Relationship Specialty Start Date End Date Kayla Monterroso MD [id number] [place] [address] PCP - General Internal Medicine 01/30/19 Janey Patricia DO [address] [place] [address] Primary Staff Physician Nephrology 03/26/21 Home Visitor Relationship Specialty Start Date End Date Kayla Monterroso MD [id number] [place] [address] PCP - General Internal Medicine 01/30/19 Janey Patricia DO [address] [place] [address] Primary Staff Physician Nephrology 03/26/21 Home Visitor Relationship Specialty Start Date End Date Kayla Monterroso MD [id number] [place] [address] PCP - General Internal Medicine 01/30/19 Janey Patricia DO [address] [place] [address] Primary Staff Physician Nephrology 03/26/21 Home Visitor Relationship Specialty Start Date End Date Kayla Monterroso MD [address] [place] [address] PCP - General Internal Medicine 01/30/19 Janey Patricia DO [address] [place] [address] Primary Staff Physician Nephrology 03/26/21 Home Visitor Relationship Specialty Start Date End Date Kayla Monterroso MD [id number] [place] [address] PCP - General Internal Medicine 01/30/19 Janey Patricia DO [address] [place] [address] Primary Staff Physician Nephrology 03/26/21 Home Visitor Relationship Specialty [place] [address] [place] [address] PCP - General Internal Medicine 01/30/19 Janey Patricia DO [address] [place] [address] Primary Staff Physician Nephrology 03/26/21 Home Visitor Relationship Specialty Start [place] [address] [place] [address] PCP - General Internal Medicine 01/30/19 Janey Patricia DO [address] [place] [address] Primary Staff Physician Nephrology 03/26/21 Home Visitor Relationship Specialty [place] [address] [place] [address] PCP - General Internal Medicine 01/30/19 Janey Patricia DO [address] [place] [address] Primary Staff Physician Nephrology 03/26/21 Home Visitor Relationship Specialty Start Date End Date Kayla Monterroso MD [id number] [place] [address] PCP - General Internal Medicine 01/30/19 Janey Patricia DO [address] [place] [address] Primary Staff Physician Nephrology 03/26/21 Home Visitor Relationship Specialty [place] [address] [place] [address] PCP - General Internal Medicine 01/30/19 Janey Patricia DO [address] [place] [address] Primary Staff Physician Nephrology 03/26/21 Home Visitor Relationship Specialty Start [place] [address] [place] [address] PCP - General Internal Medicine 01/30/19 Janey Patricia DO [address] [place] [address] Primary Staff Physician Nephrology 03/26/21 Home Visitor Relationship Specialty [place] [address] [place] [address] PCP - General Internal Medicine 01/30/19 Janey Patricia DO [address] [place] [address] Primary Staff Physician Nephrology 03/26/21 Home Visitor Relationship Specialty Start [place] [address] [place] [address] PCP - General Internal Medicine 01/30/19 Janey Patricia DO [address] [place] [address] Primary Staff Physician Nephrology 03/26/21 Home Visitor Relationship Specialty Start [place] [address] [place] [address] PCP - General Internal Medicine 01/30/19 Janey Patricia DO [address] [place] [address] Primary Staff Physician Nephrology 03/26/21 Home Visitor Relationship Specialty Start [place] [address] [place] [address] PCP - General Internal Medicine 01/30/19 Janey Patricia DO [address] [place] [address] Primary Staff Physician Nephrology 03/26/21 Home Visitor Relationship Specialty Start [place] [address] [place] [address] PCP - General Internal Medicine 01/30/19 Janey Patricia DO [address] [place] [address] Primary Staff Physician Nephrology 03/26/21 Home Visitor Relationship Specialty [place] [address] [place] [address] PCP - General Internal Medicine 05/18/23 Home Visitor Relationship Specialty [place] [address] [place] [address] PCP - General Internal Medicine 01/30/19 Janey Patricia DO [address] [place] [address] Primary Staff Physician Nephrology 03/26/21 Home Visitor Relationship Specialty Start [place] [address] [place] [address] PCP - General Internal Medicine 01/30/19 Janey Patricia DO [address] [place] [address] Primary Staff Physician Nephrology 03/26/21 Home Visitor Relationship Specialty [place] [address] [place] [address] PCP - General Internal Medicine 01/30/19 Janey Patricia DO [address] [place] [address] Primary Staff Physician Nephrology 03/26/21 Ordered Prescriptions [...] BE BASED ON THE PRIMARY CLINICAL RECORDS. [facility] [employer] [facility]. provides no warranty or guarantee of the accuracy or completeness of information in this document.
[2023-06-16] MEDS: 0.9 % SODIUM CHLORIDE 1,000 ML 100 ML IV ×3 (04:24→22:18)
[2023-06-16] MEDS: ACETAMINOPHEN 500 MG TABLET PO (04:24)
[2023-06-16 05:47] LABS: Hematocrit 35.9 % (36.0-48.0); Hemoglobin 11.1 g/dL (12.0-16.0); Mean Corpuscular HGB Conc 30.9 g/dL (29.9-35.2); Mean Corpuscular Hemoglobin 30.1 pg (26.7-34.0); Mean Corpuscular Volume 97.3 fL (81.0-99.0); Mean Platelet Volume 9.5 fL (9.5-13.5); Platelet Count 244 10^3/uL (150-450); Red Blood Count 3.69 10^6/uL (4.20-5.40); Red Cell Distribution Width 15.1 % (11.0-15.0); White Blood Count 23.5 10^3/uL (4.0-11.0)
[2023-06-16 05:56] LABS: Anion Gap 15.6; BUN Creatinine Ratio 22.3; Carbon Dioxide 22.4 mmol/L (21.0-32.0); Chloride 104 mmol/L (98-107); Estimated GFR (African America 18 (>=60); Estimated GFR (Non-African Ame 15 (>=60); Glucose 130 mg/dL (74-106); Sodium 138 mmol/L (136-145)
[2023-06-16 06:14] LABS: Band Neutrophils Absolute 1.4 10^3/uL (0.0-0.3); Monocytes Absolute Manual 1.41 10^3/uL (0.30-0.80); Ovalocytes 2+; Segmented Neut Absolute Manual 20.68 10^3/uL (1.4-6.5)
[2023-06-16] MEDS: HYDRALAZINE HCL 50 MG TABLET PO (06:23)
[2023-06-16] MEDS: CEFTRIAXONE 1,000 MG in 0.9 % SODIUM CHLORIDE 50 ML 100 MG IV (09:05)
[2023-06-16] MEDS: OMEPRAZOLE 40 MG CAPSULE.DR PO (09:07)
[2023-06-16] MEDS: DOXAZOSIN MESYLATE 2 MG TABLET PO (09:07)
[2023-06-16] MEDS: AMIODARONE HCL 200 MG TABLET PO (09:07)
[2023-06-16] MEDS: APIXABAN 5 MG TABLET 2.5 MG PO ×2 (09:08→20:59)
[2023-06-16 09:38] LABS: Adenovirus F 40/41 NOT DETECTED (NOT DETECTE); Astrovirus NOT DETECTED (NOT DETECTE); Campylobacter NOT DETECTED (NOT DETECTE); Cryptosporidium NOT DETECTED (NOT DETECTE); Cyclospora cayetanensis NOT DETECTED (NOT DETECTE); Entamoeba histolytica NOT DETECTED (NOT DETECTE); Enteroaggregative E.coli NOT DETECTED (NOT DETECTE); Enteropathogenic E.coli NOT DETECTED (NOT DETECTE); Enterotoxigenic E. coli NOT DETECTED (NOT DETECTE); Giardia lamblia NOT DETECTED (NOT DETECTE); Norovirus GI/GII NOT DETECTED (NOT DETECTE); Plesiomonas shigelloides NOT DETECTED (NOT DETECTE); Rotavirus A NOT DETECTED (NOT DETECTE); Salmonella NOT DETECTED (NOT DETECTE); Sapovirus NOT DETECTED (NOT DETECTE); Shiga-like toxin-producing E.C NOT DETECTED (NOT DETECTE); Shigella/Enteroinvasive E.coli NOT DETECTED (NOT DETECTE); Vibrio NOT DETECTED (NOT DETECTE); Vibrio cholerae NOT DETECTED (NOT DETECTE)
--- NOTE | 2023-06-16 09:47 | CM.NOTE ---
Rounds made with Dr. Gonzalez. Monica explains symptoms leading to ER to Dr. Gonzalez. Dr. Gonzalez reviews labs with Monica and new orders. Monica verbalizes understanding.
--- NOTE | 2023-06-16 09:58 | P.HP_ITS ---
<Statement entered by Shaikh Carlos MD - 06/16/23 10:55> This documentation has been reviewed and approved. Patient seen and examined. Cased discussed with ED provider, patient's RN and Hospitalist [employer]PARTMENT SUPERVISOR. Agree with clinical decision making and treatment plan as outlined in patient's H&P Exam: Frail appearing, thin built. comfortable CTA b/l, no crackles, wheezing Normal HR, S1,S2 NT, ND, normal bowel sounds Asssessment and Plan Leukocytosis Colitis likely C diff Colitis WILDER on CKD 3-4 - Serum Cr 3.3 on presentation, baseline cr is 2.0 Dehydration CAD Severe PCM - low BMI, loss of muscle mass, poor PO intake, weight loss. Chronic diastolic HF Paroxysomal Afib HTN Afib Chronic diastolic HF. Severe PCM Patient presents with weakness, nausea, vomiting, abdominal discomfort, poor appetite and decreased PO intake. She initally reported constipation but then earlier today had 2 large watery bowel movements. No blood in stool. Suspect C diff colitis with recent abx use. CT scan reports colitis. No intraabdominal abscess. Appears dry on clinical exam with serum Cr of 3.2 c/w WILDER. (baseline is serum cr is 2.0) C/w IVF - monitor closely for volume overload. Monitor renal function and UO closely. Hold BP meds as BP is borderline low. Patient admitted as inpatient as with her clinical presentation, I anticipate her to require inpatient treatment for 2 Midnights. With the degree of leukocytosis, renal impairment and her co morbid conditions including frailty, poor functional status, severe PCM, afib, chronic diastolic HF- she will need close monitoring of her volume status and renal function while on IV fluids and I anticipate that she will stay inpatient for atleast 2 midnights. 2-3 MN. HPI H&P: HPI History of Present Illness Chief complaint: Abdominal Pain Narrative: 06/16/23 0930 This is a 73-year-old female patient with a complicated past medical history as outlined below including A-fib with difficult rate control history, HFpEF, HTN, and recent admissions at this facility with A-fib and uncontrolled RVR, UTI and acute on chronic HFpEF; who presented to the ED from a local SNF complaining of abdominal pain and constipation x 1 week. The patient was discharged last from this facility on 06/08/2023 to [facility] for rehab strengthening. The patient reports approximately 1 week without a bowel movement. She had onset of crampy diffuse abdominal pain yesterday. She also reports 3 days of nausea and dry heaves without emesis. She denies any fevers. Workup in the ED revealed leukocytosis (20.9), and WILDER on CKD 3B/4 (BUN 64, CR 3.37, GFR 13). A UA was negative for infection. A lipase was mildly elevated (146). Troponin and lactic acid were both unremarkable. A CT of the abdomen pelvis was obtained and revealed mild colitis in the mid to distal colon changes possibly consistent with inflammatory bowel disease. No obstruction was noted. She was admitted as an inpatient early this morning for colitis and WILDER. At the time of my exam the patient is just returned to bed from the bathroom. She is experienced 2 episodes of uncontrollable diarrhea concerning for possible C. difficile. A sample has been sent to the lab for a GI panel. If it is C. difficile positive we will initiate oral vancomycin dosing and DC Rocephin and Flagyl as currently prescribed for nonspecific colitis. Her renal function is improved slightly since her arrival in the ED last night but we are hoping for m ore improvement. She is also experiencing soft BPs, but remains asymptomatic. We will give her a gentle fluid bolus of 500 mL over 2 hours. Nursing will monitor her blood pressure every 2 hours x 2. Will monitor her weights closely in hopes of avoiding fluid overload. Opioid HPI Opioid Management Most Recent Opioid Data: Last Pain Scale 2 06/16/23 06:22 Last Pain Intensity 0 06/06/23 11:18 Last Pain Assessment 06/16/23 10:00 Last ED Pain Assessment 06/15/23 22:48 Last MAR Pain Assessment 06/16/23 05:47 Last ORT Total Score 0 06/01/23 22:34 Last ORT Risk Category Low Risk 06/01/23 22:34 Review of Systems ROS Status of ROS 10 or more systems reviewed and unremark able except as noted in history and below [facility] Medical History (Updated 06/16/23 @ 09:58 by Falguni Trejo NP) Paroxysmal atrial fibrillation ?I48.0 - Paroxysmal atrial fibrillation (ICD-10) Severe protein-calorie malnutrition ?E43 - Unspecified severe protein-calorie malnutrition (ICD-10) Anemia in CKD (chronic kidney disease) ?N18.9 - Chronic kidney disease, unspecified (ICD-10) ?D63.1 - Anemia in chronic kidney disease (ICD-10) CKD (chronic kidney disease) stage 4, GFR 15-29 ml/min ?N18.4 - Chronic kidney disease, stage 4 (severe) (ICD-10) Acute on chronic heart failure with preserved ejection fraction (HFpEF) ?I50.33 - Acute on chronic diastolic (congestive) heart failure (ICD-10) Weakness generalized ?R53.1 - Weakness (ICD-10) CAD (coronary artery disease), [place] coronary artery ?I25.10 - Atherosclerotic heart disease of [place] coronary artery without angina pectoris (ICD-10) Hypertension ?I10 - Essential (primary) hypertension (ICD-10) Chronic heart failure with preserved ejection fraction (HFpEF) ?I50.32 - Chronic diastolic (congestive) heart failure (ICD-10) Pain, dental ?K08.89 - Other specified disorders of teeth and supporting structures (ICD- 10) GERD (gastroesophageal reflux disease) ?K21.9 - Gastro-esophageal reflux disease without esophagitis (ICD-10) 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 - Unspecified atherosclerosis of [place] arteries of extremities, unspecified extremity (ICD-10) History of heart attack ?I25.2 - Old myocardial infarction (ICD-10) Abnormal colonoscopy ?R93.3 - Abnormal findings on diagnostic imaging of other parts of digestive tract (ICD-10) Colon polyp ?K63.5 - Polyp of colon (ICD-10) Surgical History H/O tubal ligation ?Z98.51 - Tubal ligation status (ICD-10) Hx of tonsillectomy ?Z90.89 - Acquired absence of other organs (ICD-10) Family History (Updated 06/16/23 @ 01:25 by Ira Blue) Sister Family history of diabetes mellitus Brother Family history of diabetes mellitus Social History (Updated 06/16/23 @ 01:26 by Ira Blue) Within the past year, how often did you have a drink containing alcohol: never Score interpretation: A score less than 3 is consistent with normal alcohol consumption. Smoking status: Former smoker Non-prescribed substance use: denies use Previous occupational history: retired Highest level of school completed/degree received: 11th grade Are you now , , , , never or living with a partner: In a typical week, how many times do you talk on the telephone with family, friends, or neighbors: once per week How often do you get together with friends or relatives: once per week How often do you attend uatsdin or spiritism services: never Little interest or pleasure in doing things: not at all Feeling down, depressed, or hopeless: not at all Feel stressed/tense/nervous/anxious/difficulty sleeping: not at all Due to disability, difficulty making decisions: No Do you think of yourself as: straight/heterosexual Gender Identity: female Meds Home Medications and Allergies Home Medications ?Medication ?Instructions ?Recorded ?Confirmed ?Type doxazosin 2 mg tablet 2 mg PO BID 04/26/23 06/15/23 History hydralazine 50 mg tablet 50 mg PO Q8H 04/26/23 06/15/23 History rosuvastatin 20 mg tablet 20 mg PO .QHS 04/26/23 06/15/23 History pantoprazole 40 mg tablet,delayed 40 mg PO DAILY 05/20/23 06/15/23 History release amiodarone 200 mg tablet (Pacerone) 200 mg PO DAILY 30 days #30 tabs 05/22/23 06/15/23 Rx apixaban 5 mg tablet (Eliquis) 2.5 mg (1/2 x 5 mg) PO BID 30 days 05/22/23 06/15/23 Rx #30 tabs naproxen 250 mg tablet 250 mg PO Q12H 05/26/23 06/15/23 History bumetanide 1 mg tablet 1 mg PO Q24H #1 tab 06/06/23 06/15/23 Rx levofloxacin 750 mg tablet 750 mg PO DAILY 5 days #5 tabs 06/06/23 Rx spironolactone 25 mg tablet 12.5 mg (1/2 x 25 mg) PO QD #1 tab 06/06/23 06/15/23 Rx Tums PO QID PRN STOMACH PAIN 06/15/23 History acetaminophen 500 mg tablet 500 mg PO Q6H PRN pain 06/15/23 06/15/23 History (Tylenol Extra Strength) carvedilol 6.25 mg tablet 3.125 mg PO Q12H 06/15/23 06/15/23 History cephalexin 500 mg capsule 500 mg PO BID 06/15/23 06/15/23 History ondansetron 4 mg disintegrating 4 mg PO Q8H PRN nausea and vomiting 06/15/23 06/15/23 History tablet sennosides 8.6 mg-docusate sodium 2 tab-cap PO BID PRN constipation 06/15/23 06/15/23 History 50 mg tablet (Docuzen) Allergies Allergy/AdvReac Type Severity Reaction Status Date / Time No Known Drug Allergies Allergy Verified 06/15/23 22:40 Exam Constitutional Vital Signs, click to edit/add: Last Vital Signs Temp 98.6 F 06/16/23 07:48 Pulse 65 06/16/23 09:52 Resp 16 06/16/23 07:48 BP 96/58 06/16/23 09:07 Pulse Ox 95 06/16/23 07:48 O2 Del Method Room Air 06/16/23 07:48 Common normals: no apparent distress, oriented x3, alert and well nourished General appearance: cooperative Orientation/consciousness: Yes awake HENMT Common normals: normocephalic, head/scalp atraumatic, hearing grossly normal bilaterally, external nose normal and moist oral mucous membranes Eye Common normals: PERRL, EOMs intact bilaterally, conjunctivae normal and no scleral icterus Alignment: alignment normal Eyelid: eyelids normal Neck & C-Spine Common normals: full ROM, supple and no JVD Chest Common normals: inspection of chest normal Chest: symmetrical chest wall rise Respiratory Common normals: normal respiratory effort, no retractions, no use of accessory muscles and clear to auscultation bilaterally Effort & inspection: able to speak in complete sentences Cardio Common normals: no JVD, regular rate, regular rhythm, S1 normal heart sound, S2 normal heart sound, no gallops, no clicks, no murmurs, no rub and peripheral pulses 2+ throughout GI Common normals: Normal to inspection, nondistended, normoactive bowel sounds present, soft to palpation, no hepatosplenomegaly, no masses and no bruits Palpation: tender (Diffuse/mild, greatest at RLQ); no guarding and no rebound tenderness present Bladder/kidney exam: bladder normal to palpation Back & Pelvis Common normals: thoracic and lumbar spine normal to inspection Extremity Common normals: normal capillary refill and no pedal edema General: normal exam except as noted; no clubbing and no cyanosis Neuro [place] Coma Scale: GCS not evaluated Common normals: CN's II-XII intact bilaterally, moves all extremities, no focal motor deficits and no sensory deficits noted Speech: speech normal Motor exam: strength 5/5 throughout Psych Common normals: mental status grossly normal, thought process normal, affect normal and activity/motor behavior normal Results Labs Labs: Short CBC 06/15/23 06/16/23 Range/Units 22:40 04:40 WBC 20.9 H 23.5 H (4.0-11.0) 10^3/uL Hgb 12.8 11.1 L (12.0-16.0) g/dL Hct 40.2 35.9 L (36.0-48.0) % Plt Count 331 244 (150-450) 10^3/uL BMP 06/15/23 06/16/23 22:40 04:40 Sodium 140 138 Potassium 3.9 4.0 Chloride 101 104 Carbon Dioxide 27.5 22.4 BUN 64.0 H 69.0 H Creatinine 3.37 H 3.09 H Glucose 156 H 130 H Calcium 9.7 9.0 Liver Function 06/15/23 Range/Units 22:40 Total Bilirubin 0.7 (0.2-1.0) mg/dL AST 32 (15-37) U/L ALT 28 (14-59) U/L Alkaline Phosphatase 112 (46-116) U/L Albumin 3.0 L (3.4-5.0) g/dL Urine 06/16/23 Range/Units 00:23 Urine Color Yellow (YELLOW) Urine Clarity Clear (CLEAR) Urine pH 5.5 (5.0-9.0) Ur Specific [place] 1.025 (1.005-1.025) Urine Protein Trace (NEG/TRACE) mg/dL Urine Glucose (UA) Negative (NEGATIVE) mg/dL Pulse Oximetry Attestation: I have reviewed the pertinent pulse oximetry results. Imaging CT scan - abdomen: Attestation: I have reviewed the pertinent imaging results. Radiologist's impression: IMPRESSION: 1. Mild colitis of the mid-distal colon; possible inflammatory bowel disease. No obstruction. 2. Sigmoid diverticulosis without convincing acute diverticulitis. 3. Additional chronic changes detailed above. Assessment and Plan Assessment and Plan (1) Colitis: Assessment and Plan: Acute * Adm inpatient * We expect greater than a 2 midnight stay for medically necessary hospital care * Nonspecific mid/distal colitis on CT imaging - inflammatory vs infectious * Start IVPB Rocephin/Flagyl * Initial presentation w/ constipation, now uncontrolled diarrhea * GI Panel - result pending * Suspect possible C-diff * If pos - start PO Vancomycin QID and d/c IV ABX * Zofran for nausea * PRN oxycodone or MS IVP for pain * CBC, CMP daily (2) Acute kidney injury: Assessment and Plan: Acute * Suspect 2/2 overdiuresis/dehydration after recent admission with acute chf exacerbation (HFpEF) * Hold all renal toxic medications for now including home bumex, spironlactone * 1 liter IVF bolus given in ED * NS @ 100/hr initiated on admission * Minimal renal response to IVF since admission * Gentle 500 ml bolus over 2 hrs now * Recheck BMP at 1500, consider increasing IVF rate pending result * CMP daily (3) Leukocytosis: Assessment and Plan: Acute * Likely d/t infectious colitis - r/o cdiff * UA neg * CXR now for complete assessment of possible infectious sources (4) Chronic heart failure with preserved ejection fraction (HFpEF): Assessment and Plan: Chronic * Recently started on bumex dosing d/t acute decompensated HFpEF on last admission * Hold bumex and spironolactone d/t WILDER/dehydration * Daily weights, strict I&O * Consider repeat 2D Echo pending clinical course (5) Paroxysmal atrial fibrillation: Assessment and Plan: Acute * Continue home amiodarone and coreg for rate control * Continue home Eliquis for CVA prevention * Tele monitoring (6) Anemia in CKD (chronic kidney disease): Assessment and Plan: Acute * Stable * Anemia requiring PRBC transfusions earlier this month * Pt at risk for GIB in setting of acute colitis * CBC daily (7) Weakness generalized: Assessment and Plan: Acute on chronic * PT/OT consults (8) Hypertension: Assessment and Plan: Chronic * Currently borderline hypotensive * Hold home Cardura * Hold Coreg for SBP < 95, otherwise give as prescribed for rate control Qualifiers: Hypertension type: primary hypertension Qualified Code(s): I10 - [place] t[place] (primary) hypertension (9) CAD (coronary artery disease), [place] coronary artery: Assessment and Plan: Chronic * Continue home statin, BB (10) GERD (gastroesophageal reflux disease): Assessment and Plan: Chronic * Continue home PPI Qualifiers: Esophagitis presence: esophagitis presence not specified Qualified Code(s): K21.9 - Gastro-esophageal reflux disease without esophagitis (11) Severe protein-calorie malnutrition: Assessment and Plan: Acute * Ensure BID Urinary Catheter Management Urinary Catheter Management Straight: Cath placed during this visit: yes, but has since been removed by the nurse Insertion date: 06/16/23 Insertion time: 00:25 Removal time: 00:25
[2023-06-16] MEDS: 0.9 % SODIUM CHLORIDE 500 ML 250 ML IV ×2 (10:01→15:17)
[2023-06-16] MEDS: ONDANSETRON PF 4 MG/2 ML VIAL IV (10:01)
--- NOTE | 2023-06-16 10:39 | XR_ITS ---
The [address] [address] Patient Name: NEELAM VIRAMONTES MRN: [id number] date: 1950 Sex: F Assigned Patient Location: [place] Current Patient Location: [place] Accession/Order Number: [id number] Exam Date: 06/16/2023 10:30 Report Date: 06/16/2023 11:17 At the request of: MICHELLE SCHULZ Procedure: XR chest 1V EXAM: XR chest 1V HISTORY: weakness/infection COMPARISON: None. TECHNIQUE: AP view of the chest. FINDINGS: The cardiomediastinal silhouette is normal. The lungs are clear. There is no pneumothorax. No pleural effusion is noted. The osseous structures are intact. XR/XR chest 1V IMPRESSION: No acute cardiopulmonary process. Electronically authenticated by: LUIS NOEL Date: 06/16/2023 11:17
[2023-06-16 11:08] LABS: Yersinia enterocolitica DETECTED (NOT DETECTE)
--- NOTE | 2023-06-16 11:32 | SWNOTE1 ---
SW attempted to see pt, pt was sleeping in bed at this time. SW to call [facility] where pt was skilled prior to coming. SW to complete assessment later today with pt.
--- NOTE | 2023-06-16 11:47 | SWNOTE1 ---
SW did speak to admissions at [facility]. Pt was approved until Tuesday, but they were going to appeal her discharge. Pt will need a new precert to return. SW to speak with pt and significant other to make sure that is the plan.
[2023-06-16] MEDS: CARVEDILOL 3.125 MG TABLET PO ×2 (12:02→20:59)
[2023-06-16] MEDS: DOXYCYCLINE MONOHYDRATE 100 MG CAPSULE PO (12:02)
--- NOTE | 2023-06-16 12:13 | SWNOTE1 ---
SW stopped back in and spoke with pt. Pt voiced she is not feeling well, hoping to get better. SW asked about [facility]. Pt voiced it was alright. SW did ask if her plan is to go back and she stated that is the only place there is to go. SW advised her that we can look in to other places. The issue last stay was that everywhere was full, this could have changed now. SW let her know she will need a new precert now that she is admitted to hospital. TANNER asked if Benny, her significant other was coming? Pt stated he is here getting food. SW asked pt if she would like to look in to other facilities and she was not sure. SW to stop back in when Benny is here.
--- NOTE | 2023-06-16 13:32 | SWNOTE1 ---
SW spoke to pt and Benny in room. Benny did express that he was not happy with pt's care at [facility]. Benny did express how pt was waiting for 20 minutes last night for nurse to come in after pt hit call button. SW did let Benny know that pt is able to switch facilities. SW let pt and Benny know that since she is admitted pt is a new precert and information will need to be submitted to insurance and we will have to wait for approval or denial like last time. TANNER reviewed the facilities from medicare.gov that do accept [employer] insurance. Benny did ask pt if she wants to go back to [facility] and she expressed no. SW was not sure about [facility] in [place], Benny expressed that we can rule them out he does not want her to go there. SW let pt and Benny know that there is [facility] in [place], [facility], [facility] in [place], and [facility] in [place]. Pt and Benny have decided on the [facility]. Benny did let SW know that pt does have a dentist appointment to have a tooth pulled on Tuesday. SW let him know we can let the [facility] know and confirm that is alright if needed. SW let Benny know he may have to transport. He voiced understanding. Referral sent to [facility]. Referral included face sheet, ED note, H&P, provider notes, case management report, nursing notes, diagnostic imaging, med list, and PT/OT notes. Important Message from Medicare reviewed and discussed with patient's significant other. He verbalized understanding and signed the form. Original given to patient's significant other and copy placed in patient?s chart.
--- NOTE | 2023-06-16 15:53 | SWNOTE1 ---
TANNER reached out to Buck at [facility] to see if they can accept. Waiting to hear back.
--- NOTE | 2023-06-16 15:57 | SWNOTE1 ---
[facility] is able to accept pt, they are waiting for [facility] to call and see if they need to cancel anything on there end. TANNER called [facility] and spoke with Angelique and she voiced she does not feel they need to do anything at this point and [facility] will have to check with [employer]. She did voice they did a UA on pt and they were awaiting cultures. TANNER let Buck know at [facility] that TANNER spoke to Angelique.
[2023-06-16 17:12] LABS: Anion Gap 13.7; Calcium 8.3 mg/dL (8.5-10.1); Chloride 107 mmol/L (98-107); Estimated GFR (African America 17 (>=60); Estimated GFR (Non-African Ame 14 (>=60); Glucose 123 mg/dL (74-106); Potassium 3.7 mmol/L (3.5-5.1); Sodium 141 mmol/L (136-145)
[2023-06-16 17:13] LABS: BUN Creatinine Ratio 21.3
[2023-06-17] VITALS (15 sets, daily range): BP systolic 92–127; BP diastolic 55–66; PULSE 56–67; TEMP 36.3–37.2; O2SAT 93–96; BMI 24.2
[2023-06-17] MEDS: ACETAMINOPHEN 325 MG TABLET 650 MG PO ×2 (02:34→17:15)
[2023-06-17 04:48] LABS: Basophils Percent Auto 0.3 % (0.2-2.0); Eosinophils Absolute Auto 0.3 10^3/uL (0.0-0.7); Eosinophils Percent Auto 2.8 % (0.9-7.0); Hematocrit 27.7 % (36.0-48.0); Hemoglobin 8.4 g/dL (12.0-16.0); Immature Granulocytes Abs Auto 0.04 10^3/uL (0.00-0.03); Immature Granulocytes Pct Auto 0.3 % (0.0-0.5); Lymphocytes Absolute Auto 1.6 10^3/uL (1.2-3.8); Mean Corpuscular HGB Conc 30.3 g/dL (29.9-35.2); Mean Corpuscular Volume 98.9 fL (81.0-99.0); Mean Platelet Volume 9.9 fL (9.5-13.5); Monocytes Absolute Auto 0.9 10^3/uL (0.3-0.8); Monocytes Percent Auto 7.9 % (1.7-12.0); Neutrophils Absolute Auto 8.6 10^3/uL (1.4-6.5); Neutrophils Percent Auto 74.7 % (43.0-75.0); Platelet Count 195 10^3/uL (150-450); Red Cell Distribution Width 15.5 % (11.0-15.0); White Blood Count 11.5 10^3/uL (4.0-11.0)
[2023-06-17 05:09] LABS: Alanine Aminotransferase 13 U/L (14-59); Albumin Globulin Ratio 0.7; Albumin Level 1.8 g/dL (3.4-5.0); Alkaline Phosphatase 66 U/L (46-116); Anion Gap 11.4; Aspartate Amino Transferase 24 U/L (15-37); Bilirubin Total 0.3 mg/dL (0.2-1.0); Calcium 7.9 mg/dL (8.5-10.1); Carbon Dioxide 22.9 mmol/L (21.0-32.0); Chloride 110 mmol/L (98-107); Estimated GFR (African America 21 (>=60); Estimated GFR (Non-African Ame 17 (>=60); Globulin 2.7 g/dL; Glucose 87 mg/dL (74-106); Potassium 3.3 mmol/L (3.5-5.1); Sodium 141 mmol/L (136-145); Total Protein 4.5 g/dL (6.4-8.2)
--- NOTE | 2023-06-17 08:03 | SWNOTE1 ---
SW did receive email from [facility] and they did submit precert yesterday evening around 4:30pm.
[2023-06-17] MEDS: 0.9 % SODIUM CHLORIDE 1,000 ML 100 ML IV (08:46)
[2023-06-17] MEDS: APIXABAN 5 MG TABLET 2.5 MG PO ×2 (08:47→20:10)
[2023-06-17] MEDS: CEFTRIAXONE 1,000 MG in 0.9 % SODIUM CHLORIDE 50 ML 100 MG IV (08:47)
[2023-06-17] MEDS: OMEPRAZOLE 40 MG CAPSULE.DR PO (08:47)
[2023-06-17] MEDS: AMIODARONE HCL 200 MG TABLET PO (08:47)
--- NOTE | 2023-06-17 08:49 | SWNOTE1 ---
SW received email from [facility] and precert is still pending.
--- NOTE | 2023-06-17 09:32 | SWNOTE1 ---
TANNER did complete HENS. TANNER sent over updated OT note, HENS, labs, vitals, and med list to [facility]. Sent by fax.
[2023-06-17] MEDS: CARVEDILOL 3.125 MG TABLET PO ×2 (10:08→20:10)
--- NOTE | 2023-06-17 10:16 | CM.NOTE ---
Rounds made with Dr. Gonzalez, pt verbalizes her diarrhea has stopped and she is starting to feel better today. Pt continues to c/o weakness with activity.
--- NOTE | 2023-06-17 10:22 | PT.DAILY ---
Physical Therapy Daily Note PT Daily Note/Assess Start: 06/17/23 10:19 Freq: Status: Active Protocol: Document 06/17/23 10:19 SCARLET (Rec: 06/17/23 10:22 SCARLET [id number]) Physical Therapy Daily Note/Assessment Time In/Time Out Time In 09:35 Time Out 09:50 Pain In Pain N/A Pain Out Pain N/A Subjective Subjective Pt sitting in BS chair upon arrival. Agrees to PT. Some LBP this morning. Therapeutic Exercise Time Therapeutic Exercise Minutes (minutes) 3 Therapeutic Exercise Units 0 Therapeutic Exercise Treatment Therapeutic Exercise Treatment Seated bilat LE strengthening ex complete while sitting in BS chair 10x ea. Therapeutic Activity Time Therapeutic Activity Minutes (minutes) 8 Therapeutic Activity Units 1 Therapeutic Activity Treatment Chair Transfer Ability Standby Assistance Therapeutic Activity Comments Sit>stand from BS chair to RW SBA with increased time. Pt amb 30' to restroom with RW, SBA with assist for IV pole. Pt reports her legs feeling shakey but no LOB noticed. Pt needs assistance for pericare after bowel movement. Pt then amb 5' to sink with RW SBA. Then amb in gold 70' with RW, SBA with assistance for IV pole. Pt returned to BS chair with feet elevated, call light in reach and needs met. Total Physical Therapy Time Total Therapy Minutes 11 Total Physical Therapy Units 1 Summary Daily Note Summary Improved gait endurance. Subjective report of pts leg feeling shakey but no LOB or unsteadiness noticed during session.
--- NOTE | 2023-06-17 10:36 | PM.IMPN1 ---
Progress Note: A&P Assessment and Plan (1) Enteritis, Yersinia enterocolitica: Assessment and Plan: Colitis/enteritis due to Yersinia. On IV rocephin. Patient reports feeling better denies nausea, vomiting. She did not have any diarrheal episodes since last night (2) Colitis: Assessment and Plan: Due to Yersinia. Continue with IV Rocephin. (3) Acute kidney injury: Assessment and Plan: Serum creatinine is gradually improving. Her baseline serum creatinine is about 2.0 She presented with creatinine of 3.4. Continue gentle IV hydration as he has history of heart failure with preserved ejection fraction (4) Weakness generalized: Assessment and Plan: Due to dehydration, multiple comorbidities, frailty. Patient evaluated by physical therapy/occupational therapy. She will need short-term rehab after medically stable. Her insurance requires precertification that was started by [facility]. (5) Leukocytosis: Assessment and Plan: Improved significantly. Continue with IV fluids and IV Rocephin. Qualifiers: Leukocytosis type: leukemoid reaction Qualified Code(s): D72.823 - Leukemoid reaction (6) Chronic heart failure with preserved ejection fraction (HFpEF): Assessment and Plan: History of heart failure with preserved ejection fraction. She is dehydrated and needs IV fluids. Gentle IV hydration and careful monitoring to avoid volume overload. (7) Paroxysmal atrial fibrillation: Assessment and Plan: Continue with amiodarone, carvedilol. Patient is on Eliquis for stroke prophylaxis (8) Anemia in CKD (chronic kidney disease): Assessment and Plan: At baseline. No evidence of overt bleeding. Monitor. Qualifiers: Chronic kidney disease stage: stage 4 (severe) Qualified Code(s): N18.4 - Chronic kidney disease, stage 4 (severe); D63.1 - Anemia in chronic kidney disease (9) Hypertension: Assessment and Plan: Her pressure is borderline low. Doxazosin is on hold along with hydralazine. Continue with amiodarone and carvedilol. Qualifiers: Hypertension type: primary hypertension Qualified Code(s): I10 - Essential (primary) hypertension (10) CAD (coronary artery disease), [place] coronary artery: Assessment and Plan: Stable and denies chest pain, shortness of breath. Monitor. Qualifiers: [place] vs. transplanted heart: [place] heart Associated angina: without angina Qualified Code(s): I25.10 - Atherosclerotic heart disease of [place] coronary artery without angina pectoris (11) GERD (gastroesophageal reflux disease): Assessment and Plan: Continue with PPI. Qualifiers: Esophagitis presence: esophagitis presence not specified Qualified Code(s): K21.9 - Gastro-esophageal reflux disease without esophagitis (12) Severe protein-calorie malnutrition: Assessment and Plan: Poor nutritional status due to age, frailty, multiple comorbidities, repeated hospital admissions. Benefit from evaluation by Dietitian as outpatient (13) CKD (chronic kidney disease) stage 4, GFR 15-29 ml/min: Assessment and Plan: Monitor closely. Avoid nephrotoxin drugs. Plan Patient requires continued inpatient care as her serum creatinine is is still significantly elevated and she needs close monitoring because of prior history of congestive heart failure with preserved ejection fraction while on IV fluids as she is at high risk of volume overload. Internal Medicine - PN: Subj Subjective Interval history: Patient seen and examined. Doing well compared to yesterday. She reports improvement in nausea. her appetite is better. denies diarrhea since last night. Exam Constitutional Vital Signs, click to edit/add: Last Vital Signs Temp 99.0 F 06/17/23 08:00 Pulse 61 06/17/23 10:00 Resp 18 06/17/23 08:00 BP 104/63 06/17/23 08:00 Pulse Ox 94 L 06/17/23 08:00 O2 Del Method Room Air 06/17/23 08:00 Documenting provider has reviewed patient's vital signs: yes Common normals: no apparent distress and oriented x3 General appearance: cooperative and frail appearing Respiratory Common normals: normal respiratory effort and clear to auscultation bilaterally Effort & inspection: able to speak in complete sentences Auscultation: clear to auscultation bilaterally Cardio Common normals: regular rate, S1 normal heart sound and S2 normal heart sound Rate: regular rate Heart sounds: S1 normal and S2 normal GI Common normals: Normal to inspection, nondistended, normoactive bowel sounds present, soft to palpation, non-tender and no hepatosplenomegaly Palpation: soft and no hepatosplenomegaly Neuro Common normals: oriented x3, moves all extremities and no focal motor deficits Internal Medicine - PN: Obj Da Labs Labs: Laboratory Results - last 24 hr 06/16/23 06/16/23 06/17/23 09:30 15:30 04:08 WBC 11.5 H RBC 2.80 L Hgb 8.4 L Hct 27.7 L MCV 98.9 MCH 30.0 MCHC 30.3 RDW 15.5 H Plt Count 195 MPV 9.9 Neut % (Auto) 74.7 Lymph % (Auto) 14.0 L [place] % (Auto) 7.9 Eos % (Auto) 2.8 Baso % (Auto) 0.3 Neut # (Auto) 8.6 H Lymph # (Auto) 1.6 [place] # (Auto) 0.9 H Eos # (Auto) 0.3 Baso # (Auto) 0.0 Abs Immat Gran (auto) 0.04 H Imm/Tot Granulo (auto) 0.3 Sodium 141 141 Potassium 3.7 3.3 L Chloride 107 110 H Carbon Dioxide 24.0 22.9 Anion Gap 13.7 11.4 BUN 68.0 H 54.0 H Creatinine 3.20 H 2.70 H Est GFR ( Amer) 17 L 21 L Est GFR (Non-Af Amer) 14 L 17 L BUN/Creatinine Ratio 21.3 20.0 Glucose 123 H 87 Calcium 8.3 L 7.9 L Magnesium 2.0 Total Bilirubin 0.3 AST 24 ALT 13 L Alkaline Phosphatase 66 Total Protein 4.5 L Albumin 1.8 L Globulin 2.7 Albumin/Globulin Ratio 0.7 Stl C. cayetanensis PCR Not detected Stool Rotavirus (PCR) Not detected Stool Adenovirus (PCR) Not detected Stool Astrovirus (PCR) Not detected Stool Campylobacter PCR Not detected Stool Cryptosporidium PCR Not detected St Sh/Enteroin Ecoli PCR Not detected Stl Enterotoxigenic E PCR Not detected Stool EPEC (PCR) Not detected Stl E. histolytica PCR Not detected Stool Giardia Lamblia PCR Not detected Stl P. shigelloides PCR Not detected Stool Salmonella PCR Not detected Stool Sapovirus (PCR) Not detected Stl Shiga-like Tx [address].enterocolitica PCR Detected A* Stl Vibrio cholerae PCR Not detected Stl Enteroaggr Ecoli PCR Not detected Stl Norovirus GI/GII PCR Not detected Specimen Source Stool C. difficile Toxin A&B Not detected Vibrio Culture Not detected Urinary Catheter Management Urinary Catheter Management Straight: Cath placed during this visit: yes, but has since been removed by the nurse Insertion date: 06/16/23 Insertion time: 00:25 Removal time: 00:25
--- NOTE | 2023-06-17 10:38 | SWNOTE1 ---
SW sent PT note to [facility] by fax for precert. SW notified Buck at [facility] that updates have been sent.
--- NOTE | 2023-06-17 14:37 | SWNOTE1 ---
TANNER emailed Buck at [facility] to check on precert, waiting to hear back.
--- NOTE | 2023-06-17 15:02 | SWNOTE1 ---
TANNER called over to the [facility] and spoke to Shanice, she will check with Buck after Buck is done with her meeting and call TANNER back.
--- NOTE | 2023-06-17 17:05 | DIETREC ---
Recommend Heart Healthy, Low Fiber diet.
[2023-06-17] MEDS: 0.9 % SODIUM CHLORIDE 1,000 ML 75 ML IV (20:10)
[2023-06-18] VITALS (9 sets, daily range): BP systolic 115–125; BP diastolic 64–69; PULSE 55–95; TEMP 36.6–36.8; O2SAT 92–96
[2023-06-18 04:39] LABS: Basophils Percent Auto 0.4 % (0.2-2.0); Eosinophils Absolute Auto 0.4 10^3/uL (0.0-0.7); Eosinophils Percent Auto 5.5 % (0.9-7.0); Hematocrit 25.5 % (36.0-48.0); Hemoglobin 7.8 g/dL (12.0-16.0); Immature Granulocytes Abs Auto 0.02 10^3/uL (0.00-0.03); Immature Granulocytes Pct Auto 0.3 % (0.0-0.5); Lymphocytes Absolute Auto 1.6 10^3/uL (1.2-3.8); Lymphocytes Percent Auto 20.5 % (20.5-60.0); Mean Corpuscular HGB Conc 30.6 g/dL (29.9-35.2); Mean Corpuscular Hemoglobin 29.5 pg (26.7-34.0); Mean Corpuscular Volume 96.6 fL (81.0-99.0); Mean Platelet Volume 9.9 fL (9.5-13.5); Monocytes Absolute Auto 0.7 10^3/uL (0.3-0.8); Monocytes Percent Auto 9.5 % (1.7-12.0); Neutrophils Percent Auto 63.8 % (43.0-75.0); Platelet Count 171 10^3/uL (150-450); Red Blood Count 2.64 10^6/uL (4.20-5.40); Red Cell Distribution Width 15.7 % (11.0-15.0); White Blood Count 7.8 10^3/uL (4.0-11.0)
[2023-06-18 04:56] LABS: Alanine Aminotransferase 20 U/L (14-59); Albumin Globulin Ratio 0.7; Albumin Level 1.7 g/dL (3.4-5.0); Alkaline Phosphatase 65 U/L (46-116); Anion Gap 11.5; Aspartate Amino Transferase 35 U/L (15-37); BUN Creatinine Ratio 19.1; Bilirubin Total 0.3 mg/dL (0.2-1.0); Calcium 7.8 mg/dL (8.5-10.1); Carbon Dioxide 22.1 mmol/L (21.0-32.0); Chloride 114 mmol/L (98-107); Estimated GFR (African America 26 (>=60); Estimated GFR (Non-African Ame 21 (>=60); Globulin 2.6 g/dL; Glucose 86 mg/dL (74-106); Potassium 3.6 mmol/L (3.5-5.1); Sodium 144 mmol/L (136-145); Total Protein 4.3 g/dL (6.4-8.2)
--- NOTE | 2023-06-18 07:47 | P.PN_ITS ---
Progress Note: Subjective Subjective Interval history: Patient sitting up in chair. She denies any fever or chills, no diarrhea since yesterday. No pain or cramping. No other complaints or issues; , Benny on speaker phone while i'm at patient bedside. Exam Narrative Exam Narrative: General: Patient is alert, and oriented to person, place and time with normal affect, proper hygiene Skin: no visible rashes, or ulcers Head: atraumatic, acephalic Eyes: PERRLA, no nystagmus present, conjunctiva clear, no scleral icterus Ears:normal gross auditory acuity Heart: Normal rate and rhythm, no murmurs/rubs/gallops Lungs: no audible wheezes, crackles and normal breath sounds all lung shaw Abdomen: Normal audible bowel sounds, no distension, No palpable masses, no organomegaly, no rebound/guarding/ or rigidity Musculoskeletal: no swelling bilateral lower extremities Constitutional Vital Signs, click to edit/add: Last Vital Signs Temp 97.9 F 06/18/23 07:40 Pulse 67 06/18/23 07:40 Resp 18 06/18/23 07:40 BP 125/69 06/18/23 07:40 Pulse Ox 96 06/18/23 07:40 O2 Del Method Room Air 06/18/23 07:40 Progress Note: Objective Labs Labs: Short CBC 06/18/23 Range/Units 04:28 WBC 7.8 (4.0-11.0) 10^3/uL Hgb 7.8 L (12.0-16.0) g/dL Hct 25.5 L (36.0-48.0) % Plt Count 171 (150-450) 10^3/uL BMP 06/18/23 04:28 Sodium 144 Potassium 3.6 Chloride 114 H Carbon Dioxide 22.1 BUN 43.0 H Creatinine 2.25 H Glucose 86 Calcium 7.8 L Liver Function 06/18/23 Range/Units 04:28 Total Bilirubin 0.3 (0.2-1.0) mg/dL AST 35 (15-37) U/L ALT 20 (14-59) U/L Alkaline Phosphatase 65 (46-116) U/L Albumin 1.7 L (3.4-5.0) g/dL Progress Note: A&P Assessment and Plan (1) Enteritis, Yersinia enterocolitica: Assessment and Plan: symptoms have been improving on Rocephin. Will be discharged home on doxycycline (2) Colitis: Assessment and Plan: Due to Yersinia. Continue with IV Rocephin. (3) Acute kidney injury: Assessment and Plan: stop fluids today, Cr. improved from 3.4 to 2.25. (4) Weakness generalized: Assessment and Plan: physical therapy/occupational therapy evaluation agreed that She will need short-term rehab, pre-cert to the [facility] started yesterday. (5) Leukocytosis: Assessment and Plan: resolved. was 7.8 today Qualifiers: Leukocytosis type: leukemoid reaction Qualified Code(s): D72.823 - Leukemoid reaction (6) Chronic heart failure with preserved ejection fraction (HFpEF): Assessment and Plan: History of heart failure with preserved ejection fraction. no signs of fluid overload (7) Paroxysmal atrial fibrillation: Assessment and Plan: Continue with amiodarone, carvedilol, Eliquis for stroke prophylaxis (8) Anemia in CKD (chronic kidney disease): Assessment and Plan: No evidence of overt bleeding. Monitor. Hb 7.8 today Qualifiers: Chronic kidney disease stage: stage 4 (severe) Qualified Code(s): N18.4 - Chronic kidney disease, stage 4 (severe); D63.1 - Anemia in chronic kidney disease (9) Hypertension: Assessment and Plan: Doxazosin is on hold along with hydralazine. Continue with amiodarone and carvedilol. Qualifiers: Hypertension type: primary hypertension Qualified Code(s): I10 - Essential (primary) hypertension (10) CAD (coronary artery disease), [place] coronary artery: Assessment and Plan: Stable and denies chest pain, shortness of breath. Monitor. Qualifiers: Associated angina: without angina [place] vs. transplanted heart: [place] heart Qualified Code(s): I25.10 - Atherosclerotic heart disease of [place] coronary artery without angina pectoris (11) GERD (gastroesophageal reflux disease): Assessment and Plan: Continue with PPI. Qualifiers: Esophagitis presence: esophagitis presence not specified Qualified Code(s): K21.9 - Gastro-esophageal reflux disease without esophagitis (12) Severe protein-calorie malnutrition: Assessment and Plan: continue ensure (13) CKD (chronic kidney disease) stage 4, GFR 15-29 ml/min: Assessment and Plan: Monitor closely. Avoid nephrotoxin drugs. improving Plan symptoms improving, labs improving, awaiting short term rehab placement. Urinary Catheter Management Urinary Catheter Management Straight: Cath placed during this visit: yes, but has since been removed by the nurse Insertion date: 06/16/23 Insertion time: 00: Removal time: 00:25
[2023-06-18] MEDS: OMEPRAZOLE 40 MG CAPSULE.DR PO (08:45)
[2023-06-18] MEDS: AMIODARONE HCL 200 MG TABLET PO (08:45)
[2023-06-18] MEDS: CARVEDILOL 3.125 MG TABLET PO (08:46)
[2023-06-18] MEDS: CEFTRIAXONE 1,000 MG in 0.9 % SODIUM CHLORIDE 50 ML 100 MG IV (08:46)
[2023-06-18] MEDS: APIXABAN 5 MG TABLET 2.5 MG PO (08:46)
--- NOTE | 2023-06-18 09:17 | PT.DAILY ---
Physical Therapy Daily Note PT Daily Note/Assess Start: 06/17/23 10:19 Freq: Status: Active Protocol: Document 06/18/23 09:14 SCARLET (Rec: 06/18/23 09:16 SCARLET [id number]) Physical Therapy Daily Note/Assessment Time In/Time Out Time In 09:00 Time Out 09:13 Pain In Pain N/A Pain Out Pain N/A Subjective Subjective Pt sitting in BS chair upon arrival. Agrees to PT. Therapeutic Exercise Time Therapeutic Exercise Minutes (minutes) 3 Therapeutic Exercise Units 0 Therapeutic Exercise Treatment Therapeutic Exercise Treatment Seated bilat LE strengthening ex complete 10x ea while sitting in BS chair to improve functional mobility prior to gait. Therapeutic Activity Time Therapeutic Activity Minutes (minutes) 8 Therapeutic Activity Units 1 Therapeutic Activity Treatment Chair Transfer Ability Standby Assistance Therapeutic Activity Comments Sit>stand to RW SBA. Amb 25' to restroom with RW, SBA with assist for IV pole. Pt able to doff brief, perform toilet transfer, and pericare SBA. Pt then amb 100'x2 in gold with 1x standing rest break due to shoulders being sore. Pt returned to BS chair with call light in reach and chair alarm set. Total Physical Therapy Time Total Therapy Minutes 11 Total Physical Therapy Units 1 Summary Daily Note Summary Improved gait endurance. Moderate fatigue upon completion.
--- NOTE | 2023-06-18 11:11 | P.DS_ITS ---
DS: Providers Provider Date of admission: 06/16/23 01:30 Primary care physician: Non-Staff PhysicianMD Admitting clinician: Shaikh Carlos Consults: 06/16/23 06:56 Occupational Therapy Eval and Treat Routine Reason for consultation: Ambulatory dysfunction/weakness Physical Therapy Eval and Treat Routine Reason for consultation: Ambulatory dysfunction/weakness Attending physician on discharge: Padmini Harrison DS: Diagnosis Discharge Diagnosis (1) Enteritis, Yersinia enterocolitica: (2) Colitis: (3) Acute kidney injury: (4) Weakness generalized: (5) Leukocytosis: Qualifiers: Leukocytosis type: leukemoid reaction Qualified Code(s): D72.823 - Leukemoid reaction (6) Chronic heart failure with preserved ejection fraction (HFpEF): (7) Paroxysmal atrial fibrillation: (8) Anemia in CKD (chronic kidney disease): Qualifiers: Chronic kidney disease stage: stage 4 (severe) Qualified Code(s): N18.4 - Chronic kidney disease, stage 4 (severe); D63.1 - Anemia in chronic kidney disease (9) Hypertension: Qualifiers: Hypertension type: primary hypertension Qualified Code(s): I10 - Essential (primary) hypertension (10) CAD (coronary artery disease), [place] coronary artery: Qualifiers: [place] vs. transplanted heart: [place] heart Associated angina: without angina Qualified Code(s): I25.10 - Atherosclerotic heart disease of [place] coronary artery without angina pectoris (11) GERD (gastroesophageal reflux disease): Qualifiers: Esophagitis presence: esophagitis presence not specified Qualified Code(s): K21.9 - Gastro-esophageal reflux disease without esophagitis (12) Severe protein-calorie malnutrition: (13) CKD (chronic kidney disease) stage 4, GFR 15-29 ml/min: DS: Summary Hospital Course Hospital Course: please see progress note dated 06/18/23; continue to hold bumex until further improvement in renal function. Will need CBC and bmp recheck tuesday at facility and physician can decide when to restart the bumex. improving on rocephin. Will be discharged on doxycycline 100mg BID x 10 days. Return to the ER with any worsening symptoms. Hemoglobin dropped to 7.8, no acute bleeding. REcheck CBC tuesday. Status at Discharge Functional status at discharge: independent ambulation Overall status at discharge: patient is progressing back to baseline Time Spent with Patient Time attestation: Total time spent providing and/or coordinating discharge services: Time spent: greater than 30 minutes Exam Narrative Exam Narrative: see progress note dated 06/18/23 Constitutional Vital Signs, click to edit/add: Last Vital Signs Temp 97.9 F 06/18/23 07:40 Pulse 56 L 06/18/23 10:00 Resp 18 06/18/23 07:40 BP 125/69 06/18/23 07:40 Pulse Ox 96 06/18/23 07:40 O2 Del Method Room Air 06/18/23 07:40 DS: Data Data Completed and Pending Labs on day of discharge: Labs from last 24 hours 06/18/23 04:28 WBC 7.8 RBC 2.64 L Hgb 7.8 L Hct 25.5 L MCV 96.6 MCH 29.5 MCHC 30.6 RDW 15.7 H Plt Count 171 MPV 9.9 Neut % (Auto) 63.8 Lymph % (Auto) 20.5 [place] % (Auto) 9.5 Eos % (Auto) 5.5 Baso % (Auto) 0.4 Neut # (Auto) 5.0 Lymph # (Auto) 1.6 [place] # (Auto) 0.7 Eos # (Auto) 0.4 Baso # (Auto) 0.0 Abs Immat Gran (auto) 0.02 Imm/Tot Granulo (auto) 0.3 Sodium 144 Potassium 3.6 Chloride 114 H Carbon Dioxide 22.1 Anion Gap 11.5 BUN 43.0 H Creatinine 2.25 H Est GFR ( Amer) 26 L Est GFR (Non-Af Amer) 21 L BUN/Creatinine Ratio 19.1 Glucose 86 Calcium 7.8 L Total Bilirubin 0.3 AST 35 ALT 20 Alkaline Phosphatase 65 Total Protein 4.3 L Albumin 1.7 L Globulin 2.6 Albumin/Globulin Ratio 0.7 Discharge Plan Discharge Disposition: Xfer Inpatient Rehab Fac Condition: Fair Discharge Medications: New doxycycline hyclate 100 mg capsule 100 mg PO BID 10 Days Qty: 20 0RF Continued pantoprazole 40 mg tablet,delayed release (DR/EC) 40 mg PO DAILY Eliquis 5 mg Tablet 2.5 mg PO BID 30 Days Qty: 30 0RF amiodarone [Pacerone] 200 mg Tablet 200 mg PO DAILY 30 Days Qty: 30 0RF spironolactone 25 mg Tablet 12.5 mg PO QD Qty: 1 0RF ondansetron 4 mg tablet,disintegrating 4 mg PO Q8H PRN (Reason: nausea and vomiting) sennosides-docusate sodium [Docuzen] 8.6-50 mg tablet 2 tab-cap PO BID PRN (Reason: constipation) Tums PO QID PRN (Reason: STOMACH PAIN) acetaminophen [Tylenol Extra Strength] 500 mg tablet 500 mg PO Q6H PRN (Reason: pain) carvedilol 6.25 mg Tablet 3.125 mg PO Q12H hydralazine 50 mg tablet 50 mg PO Q8H doxazosin 2 mg tablet 2 mg PO BID rosuvastatin 20 mg tablet 20 mg PO .QHS Held bumetanide 1 mg Tablet 1 mg PO Q24H Qty: 1 0RF Hold Instructions: Resume on 06/22/23. Discontinued naproxen 250 mg tablet 250 mg PO Q12H Patient Comments: end date 06/16 Rx Instructions: filled 05/19/23 for 9 day supply levofloxacin 750 mg tablet 750 mg PO DAILY 5 Days Qty: 5 0RF cephalexin 500 mg capsule 500 mg PO BID Rx Instructions: end date 06/22 Print Language: German Forms: Portal Instructions Follow Up Appointments: please recheck cbc and bmp on tuesday06/20/23, facility doctor can decide when to restart bumex as it's being held due to impaired renal function. Discharge location: [facility]
--- NOTE | 2023-06-18 11:35 | PC.NURSE ---
Buck from [facility] called this manual writer and stated she got approval for this patient to go skilled. Airplane Pilot notified Dr Harrison. Patient to discharge today.
== END 2023-06-18 14:50 | DRG 682 ==
LOC: ER 06-16 01:03 → MS 06-16 01:41
PROVIDERS: Nurse Practitioner; Registered Nurse; Admitting Provider Internal Medicine; Emergency Provider Internal Medicine; Visit Provider Family Medicine
DX: N17.9 Acute kidney failure, unspecified (principal); E43 Unspecified severe protein-calorie malnutrition; I13.0 Hypertensive heart and chronic kidney disease with heart failure and stage 1 through stage 4 chronic kidney disease, or unspecified chronic kidney disease; I50.32 Chronic diastolic (congestive) heart failure; A04.6 Enteritis due to Yersinia enterocolitica; E86.0 Dehydration; I48.0 Paroxysmal atrial fibrillation; N18.4 Chronic kidney disease, stage 4 (severe); I25.10 Atherosclerotic heart disease of native coronary artery without angina pectoris; K21.9 Gastro-esophageal reflux disease without esophagitis; D63.1 Anemia in chronic kidney disease; R53.1 Weakness; I25.2 Old myocardial infarction; Z68.24 Body mass index [BMI] 24.0-24.9, adult; Z86.010 Personal history of colon polyps; Z87.891 Personal history of nicotine dependence; Z79.899 Other long term (current) drug therapy; Z79.1 Long term (current) use of non-steroidal anti-inflammatories (NSAID); Z87.440 Personal history of urinary (tract) infections; Z79.01 Long term (current) use of anticoagulants
CPT/HCPCS: 36415; 51701; 71045; 74176; 80048; 80053; 81003; 83605; 83690; 83735; 84484; 85007; 85025; 85027; 87507; 96361; 96365; 96366; 96375; 96376; 97161; 97165; 97530; 97535; 99285

== ENCOUNTER 2024-01-25 03:52 | Emergency (ER) | payer OTHER, SELFPAY ==
[2024-01-25 04:01] VITALS: BP 131/52; PULSE 61; TEMP 36.6; O2SAT 98
--- OUTSIDE RECORDS SUMMARY | 2024-01-25 04:01 | XMS_ITS | CCD ---
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 negative predictive value excluding acute heart failure. CBC auto differentialon 04-29 Basophils (Bld) [#/Vol] [facility] Basophils/100 WBC (Bld) 0 % 0 - 2 % [facility] Eosinophils (Bld) [#/Vol] 0.27 10*3/uL [facility] Eosinophils/100 WBC (Bld) 4 % 1 - 4 % [facility] Erythrocyte distribution width (RBC) [Ratio] 13.5 % 11.8 - 14.4 % [facility] Hematocrit (Bld) [Volume fraction] 29.4 % Low 36.3 - 47.1 % [facility] Hemoglobin (Bld) [Mass/Vol] 9.5 g/dL Low 11.9 - 15.1 g/dL [facility] Immature granulocytes (Bld) [#/Vol] 0.03 10*3/uL [facility] Immature granulocytes/100 WBC (Bld) 0 % 0 [facility] Interpretation and review of laboratory results Abnormal [facility] Lymphocytes/100 WBC (Bld) 22 % Low 24 - 43 % [facility] Lymphocytes/100 WBC (Bld) 1.54 % [facility] MCH (RBC) [Entitic mass] 31.0 pg 25.2 - 33.5 pg [facility] MCHC (RBC) [Mass/Vol] 32.3 g/dL 28.4 - 34.8 g/dL [facility] MCV (RBC) [Entitic vol] 96.1 fL 82.6 - 102.9 fL [facility] Monocytes/100 WBC (Bld) 10 % 3 - 12 % [facility] Monocytes/100 WBC (Bld) 0.74 % [facility] Neutrophils/100 WBC (Bld) 64 % 36 - 65 % [facility] Nucleated RBC/100 WBC (Bld) [Ratio] 0.0 % 0.0 per 100 WBC [facility] Platelet mean volume (Bld) [Entitic vol] 10.1 fL 8.1 - 13.5 fL [facility] Platelets (Bld) [#/Vol] 125 10*3/uL Low [facility] RBC (Bld) [#/Vol] 3.06 10*6/uL Low 3.95 - 5.1 1 m/uL [facility] Segmented neutrophils/100 WBC (Bld) 4.57 % [facility] WBC other (Bld) [#/Vol] 7.2 [facility] CBC with Diffon 05-19-2023 Abs. Basophil <0.03 Normal 0.00-0.20 [facility] Comment on above: Performed By: #### C MPX, CDP, BNP #### [facility] [address] [place], [place] [phone] [employer]: Daniella Lott MD #### GLYHGB #### [address] [place] [address] [employer]: Jere Mas MD Abs.Imm.Granulocyte 0.03 k/uL Normal 0.00-0.30 [facility] Comment on above: Performed By: #### C MPX, CDP, BNP #### [facility] [address] [place] [address]383 [employer]: Daniella Lott MD #### GLYHGB #### [address] [phone] [employer]: Jere Mas MD Abs.Neutrophil (Seg) 4.57 k/uL Normal 1.50-8.10 [facility] Comment on above: Performed By: #### C MPX, CDP, BNP #### [facility] [address] [place], [place] [phone] [employer]: Daniella Lott MD #### GLYHGB #### [address] [address] [employer]: Jere aMs MD Basophils/100 WBC (Bld) 0 % Normal 0-2 [facility] Comment on above: Performed By: #### C MPX, CDP, BNP #### [facility] [address] [place], [place] [phone] [employer]: Daniella Lott MD #### GLYHGB #### [address] [phone] [employer]: Jere Mas MD Eosinophils (Bld) [#/Vol] 0.27 10*3/uL Normal 0.00-0.44 [facility] Comment on above: Performed By: #### C MPX, CDP, BNP #### [facility] [address] [place], [place] [phone] [employer]: Daniella Lott MD #### GLYHGB #### [address] [place], [place] 246[address] [employer]: Jere Mas MD Eosinophils/100 WBC (Bld) 4 % Normal 1-4 [facility] Comment on above: Performed By: #### C MPX, CDP, BNP #### [facility] [address] [place] [address] [address] [place] [phone] [employer]: Daniella Lott MD #### GLYHGB #### [address] [phone] [employer]: Jere Mas MD Erythrocyte distribution width (RBC) [Ratio] 13.5 % Normal 11.8-14.4 [facility] Comment on above: Performed By: #### C MPX, CDP, BNP #### [facility] [address] [place] [address] [address] [place] [address]383 [employer]: Daniella Lott MD #### GLYHGB #### [address] [address] [employer]: Jere Mas MD Hematocrit (Bld) [Volume fraction] 29.4 % Low 36.3-47.1 [facility] Comment on above: Performed By: #### C MPX, CDP, BNP #### [facility] [address] [place] [address] [place], [place] [phone] [employer]: Daniella Lott MD #### GLYHGB #### [address] [address] [employer]: Jere Mas MD Hemoglobin (Bld) [Mass/Vol] 9.5 g/dL Low 11.9-15.1 [facility] Comment on above: Performed By: #### C MPX, CDP, BNP #### [facility] [address] [place], [place] 2321683 [employer]: Daniella Lott MD #### GLYHGB #### [address] [place] [address] [employer]: Jere Mas MD Immature granulocytes/100 WBC (Bld) 0 % Normal 0 [facility] Comment on above: Performed By: #### C MPX, CDP, BNP #### [facility] [address] [place], [place] [phone] [employer]: Daniella Lott MD #### GLYHGB #### [address] [address] [employer]: Jere Mas MD Lymphocytes (Bld) [#/Vol] 1.54 10*3/uL Normal 1.10-3.70 [facility] Comment on above: Performed By: #### C MPX, CDP, BNP #### [facility] [address] [place], [place] [phone] [employer]: Daniella Lott MD #### GLYHGB #### [facility] [address] [place] [address] [employer]: Jere Mas MD Lymphocytes/100 WBC (Bld) 22 % Low 24-43 [facility] Comment on above: Performed By: #### C MPX, CDP, BNP #### [facility] [address] [place], [place] [phone] [employer]: Daniella Lott MD #### GLYHGB #### [address] [place], [place] [phone] [employer]: Jere Mas MD MCH (RBC) [Entitic mass] 31.0 pg Normal 25.2-33.5 [facility] Comment on above: Performed By: #### C MPX, CDP, BNP #### [facility] [address] [place] [address] Dr[address] [place] [phone] [employer]: Daniella Lott MD #### GLYHGB #### [address] [place], [place] [phone] [employer]: Jere Mas MD MCHC (RBC) [Mass/Vol] 32.3 g/dL Normal 28.4-34.8 [facility] Comment on above: Performed By: #### C MPX, CDP, BNP #### [address] [place] [address]383 [employer]: Daniella Lott MD #### GLYHGB #### [address] [place] [address] [employer]: Jere Mas MD MCV (RBC) [Entitic vol] 96.1 fL Normal 82.6-102.9 [facility] Comment on above: Performed By: #### C MPX, CDP, BNP #### [address] [place] 1994383 [employer]: Daniella Lott MD #### GLYHGB #### [address] [place] [address] [employer]: Jere Mas MD Monocytes (Bld) [#/Vol] 0.74 10*3/uL Normal 0.10-1.20 [facility] Comment on above: Performed By: #### C MPX, CDP, BNP #### [address] [place] 1994383 [employer]: Daneilla Lott MD #### GLYHGB #### [address] [place] [address] [employer]: Jere Mas MD Monocytes/100 WBC (Bld) 10 % Normal 3-12 [facility] Comment on above: Performed By: #### C MPX, CDP, BNP #### [facility] [address] [place], [place] [phone] [employer]: Daniella Lott MD #### GLYHGB #### [address] [address] [employer]: Jere Mas MD Neutrophil (Seg) 64 % Normal 36-65 [facility] Comment on above: Performed By: #### C MPX, CDP, BNP #### [facility] [address] [place] [address] Dr. [place], [place] [phone] [employer]: Daniella Lott MD #### GLYHGB #### [address] [address] [employer]: Jere Mas MD NRBC Automated 0.0 per 100 WBC Normal 0.0 [facility] Comment on above: Performed By: #### C MPX, CDP, BNP #### [address] [place], [place] 3947483 [employer]: Daniella Lott MD #### GLYHGB #### [address] [address] [employer]: Jere Mas MD Platelet mean volume (Bld) [Entitic vol] 10.1 fL Normal 8.1-13.5 [facility] Comment on above: Performed By: #### C MPX, CDP, BNP #### [facility] [address] [place] [address] Dr. [place], [place] [phone] [employer]: Daniella Lott MD #### GLYHGB #### [address] [phone] [employer]: Jere Mas MD Platelets (Bld) [#/Vol] 125 10*3/uL Low 138-453 [facility] Comment on above: Performed By: #### C MPX, CDP, BNP #### [facility] [address] [place], [place] [phone] [employer]: Daniella Lott MD #### GLYHGB #### [address] [place], [place] [phone] [employer]: Jere Mas MD RBC (Bld) [#/Vol] 3.06 10*6/uL Low 3.95-5.11 [facility] Comment on above: Performed By: #### C MPX, CDP, BNP #### [address] [place] 1994383 [employer]: Daniella Lott MD #### GLYHGB #### [place] [address] [employer]: Jere Mas MD WBC (Bld) [#/Vol] 7.2 10*3/uL Normal 3.5-11.3 [facility] Comment on above: Performed By: #### C MPX, CDP, BNP #### [facility] [address] [place] [address] Dr. [place] [address]383 [employer]: Daniella Lott MD #### GLYHGB #### [address] [place] [address] [employer]: Jere Mas MD Comp Metabolic Pr/rfx MGon 0 - Albumin [Mass/Vol] 2.9 g/dL Low 3.5-5.2 [facility] Comment on above: Performed By: #### T ROPI #### [facility] [address] [place] [address] [employer]: Daniella Lott MD Albumin/Glob Ratio 1.2 Normal 1.0-2.5 [facility] Comment on above: Performed By: #### T ROPI #### [facility] [address] [place], [place] 3660383 [employer]: Daniella Lott MD Alkaline Phos 59 U/L Normal 35-104 [facility] Comment on above: Performed By: #### T ROPI #### [facility] [address] [place], [place] [phone] [employer]: Daniella Lott MD ALT [Catalytic activity/Vol] 5 U/L Normal 5-33 [facility] Comment on above: Performed By: #### T ROPI #### [facility] [address] [place], [place] [phone] [employer]: Daniella Lott MD Anion gap [Moles/Vol] 8 mmol/L Low 9-17 [facility] Comment on above: Performed By: #### T ROPI #### [facility] [address] [place], [place] [phone] [employer]: Daniella Lott MD AST [Catalytic activity/Vol] 12 U/L Normal <32 [facility] Comment on above: Performed By: #### T ROPI #### [facility] [address] [place], [place] 1577183 [employer]: Daniella Lott MD Bilirubin [Mass/Vol] 0.5 mg/dL Normal 0.3-1.2 [facility] Comment on above: Performed By: #### T ROPI #### [facility] [address] [place], [place] 1421283 [employer]: Daniella Lott MD BUN/CRE Ratio 19 Normal 9-20 [facility] Comment on above: Performed By: #### T ROPI #### [facility] [address] [place], [place] 8976083 [employer]: Daniella Lott MD Calcium [Mass/Vol] 7.8 mg/dL Low 8.6-10.4 [facility] Comment on above: Performed By: #### T ROPI #### [facility] [address] [place], [place] [phone] [employer]: Daniella Lott MD Chloride [Moles/Vol] 101 mmol/L Normal 98-107 [facility] Comment on above: Performed By: #### T ROPI #### [facility] [address] [place], [place] [phone] [employer]: Daniella Lott MD CO2 [Moles/Vol] 23 mmol/L Normal 20-31 [facility] Comment on above: Performed By: #### T ROPI #### [facility] [address] [place], [place] [phone] [employer]: Daniella Lott MD Creatinine [Mass/Vol] 1.4 mg/dL High 0.5-0.9 [facility] Comment on above: Performed By: #### T ROPI #### [facility] [address] [place] [address] [employer]: Daniella Lott MD GFR/1.73 sq M.predicted among non-blacks MDRD (S/P/Bld) [Vol rate/Area] 40 mL/min/{1.73_m2} Low >60 [facility] Comment on above: Result Comment: [...] secretion. Performed By: #### T ROPI #### [facility] [address] [place] [address] [employer]: Daniella Lott MD Glucose [Mass/Vol] 97 mg/dL Normal 70-99 [facility] Comment on above: Performed By: #### T ROPI #### [facility] [address] [place] [address] [employer]: Daniella Lott MD Potassium [Moles/Vol] 3.9 mmol/L Normal 3.7-5.3 [facility] Comment on above: Performed By: #### T ROPI #### [facility] [address] [place], [place] 2970483 [employer]: Daniella Lott MD Protein [Mass/Vol] 5.4 g/dL Low 6.4-8.3 [facility] Comment on above: Performed By: #### T ROPI #### [facility] [address] [place], [place] [phone] [employer]: Daniella Lott MD Sodium [Moles/Vol] 132 mmol/L Low 135-144 [facility] Comment on above: Performed By: #### T ROPI #### [facility] [address] [place] [address] [employer]: Daniella Lott MD Urea nitrogen [Mass/Vol] 27 mg/dL High 8-23 [facility] Comment on above: Performed By: #### T ROPI #### [facility] [address] [place] [address] [employer]: Daniella Lott MD Comprehensive Metabolic Pane l w/ Reflex to MGon 05-19-2023 Albumin [Mass/Vol] 2.9 g/dL Low 3.5 - 5.2 g/dL [facility] Albumin/Globulin [Mass ratio] 1.2 {ratio} 1.0 - 2.5 [facility] ALP [Catalytic activity/Vol] 59 U/L 35 - 104 U/L [facility] ALT [Catalytic activity/Vol] 5 U/L 5 - 33 U/L [facility] Anion gap [Moles/Vol] 8 mmol/L Low 9 - 17 mmol/L [facility] AST [Catalytic activity/Vol] 12 U/L NINF - 32 U/L [facility] Bilirubin [Mass/Vol] 0.5 mg/dL 0.3 - 1.2 mg/dL [facility] Calcium [Mass/Vol] 7.8 mg/dL Low 8.6 - 10. 4 mg/dL [facility] Chloride [Moles/Vol] 101 mmol/L 98 - 107 mmol/L [facility] CO2 [Moles/Vol] 23 mmol/L 20 - 31 mmol/L [facility] Creatinine [Mass/Vol] 1.4 mg/dL High 0.5 - 0.9 mg/dL [facility] GFR/1.73 sq M.predicted MDRD (S/P/Bld) [Vol rate/Area] 40 mL/min/{1.73_m2} Low - PINF [facility] Comment on above: These results are [...] [Mass/Vol] 97 mg/dL 70 - 99 mg/dL [facility] Potassium [Moles/Vol] 3.9 mmol/L 3.7 - 5.3 mmol/L [facility] Protein [Mass/Vol] 5.4 g/dL Low 6.4 - 8.3 g/dL [facility] Sodium [Moles/Vol] 132 mmol/L Low 135 - 144 mmol/L [facility] Urea nitrogen [Mass/Vol] 27 mg/dL High 8 - 23 mg/dL [facility] Urea nitrogen/Creatinine [Mass ratio] 19 mg/mg 9 - 20 [facility] Cult,Urineon 05-19-2023 Cult,Urine Specimen Description .CLEAN CATCH URINE Culture NO GROWTH Report Status FINAL 05/19/2023 Normal [facility] Comment on above: Performed By: #### U #### [facility] [address] [place] [address] [employer]: Jere Mas MD [facility] [address] [place] [address] [employer]: Daniella Lott MD EKG 12 Leadon 05-19-2023 Atrial Rate 104 BPM [facility] Q-T Interval 310 ms [facility] QRS Duration 80 ms [facility] QTc Calculation (Bazett) 466 ms [facility] R Blacklick 14 degrees [facility] T Blacklick -3 degrees [facility] Ventricular Rate 136 BPM [facility] Atrial fibrillation with rapid ventricular response Abnormal ECG When compared with ECG of 17-MAY-2023 16:19, Atrial fibrillation has replaced Sinus rhythm Vent. rate has increased BY 61 BPM Nonspecific T wave abnormality, worse in Inferior leads Confirmed by LAVERNE SILVESTRE ([id number]) on 05/19/2023 12:43:[address] [facility] RADIOLOG[facility] Laverne Silvestre MD - [...] 73 BPM [facility] P Blacklick 61 degrees [facility] P-R Interval 144 ms [facility] Q-T Interval 372 ms [facility] QRS Duration 86 ms [facility] QTc Calculation (Bazett) 409 ms [facility] R Blacklick 42 degrees [facility] T Blacklick 35 degrees [facility] Ventricular Rate 73 BPM [facility] Normal sinus rhythm Normal ECG When compared with ECG of 18-MAY-2023 15:47, (unconfirmed) Sinus rhythm has replaced Atrial fibrillation Vent. rate has decreased BY 63 BPM Nonspecific T wave abnormality, improved in Inferior leads Confirmed by LAVERNE SILVESTRE ([id number]) on 05/19/2023 12:38:[address] [facility] Laverne Silvestre MD - 05/19/2023 Normal sinus rhythm Normal ECG When compared with ECG of 18-MAY-2023 15:47, (unconfirmed) Sinus rhythm has replaced Atrial fibrillation Vent. rate has decreased BY 63 BPM Nonspecific T wave abnormality, improved in Inferior leads Confirmed by LAVERNE SILVESTRE ([id number]) on 05/19/2023 12:38:02 AM [facility] EKG Rhythm Stripon [facility] Hemoglobin A1Con 05-19-2023 Glucose [Mass/Vol] 88 mg/dL Normal [facility] Comment on above: Result Comment: The ADA and AACC recommend providing the estimated average glucose result to permit better patient understanding of their HBA1c result. Performed By: #### T BK #### [facility] [address] [place] [address] [place] [address] [employer]: Daniella Lott MD HbA1c (Bld) [Mass fraction] 4.7 % Normal 4.0-6.0 [facility] Comment on above: Performed By: #### T BK #### [address] [place] [address] [employer]: Daniella Lott MD Lipid Profileon 05-19-2023 Cholesterol [Mass/Vol] 88 mg/dL Normal 0-199 [facility] Comment on above: Result Comment: Cholesterol Guidelines: <200 Desirable 200-240 Borderline >240 Undesirable Performed By: #### T JP BOURGEOIS, CDP #### [facility] [address] [place] [address] [place] [address] [employer]: Daniella Lott MD Cholesterol in HDL [Mass/Vol] 37 mg/dL Low >40 [facility] Comment on above: Result Comment: HDL Guidelines: <40 Undesirable 40-59 Borderline >59 Desirable Performed By: #### T JP BOURGEOIS, CDP #### [facility] [address] [place], [place] [phone] [employer]: Daniella Lott MD Cholesterol in LDL [Mass/Vol] 41 mg/dL Normal 0-100 [facility] Comment on above: Result Comment: LDL Guidelines: <100 Desirable 100-129 Near to/above Desirable 130-159 Borderline >159 Undesirable Direct (measured) LDL and calculated LDL are not interchangeable tests. Performed By: #### JP SMITH, CDP #### [facility] [address] [place], [place] [phone] [employer]: Daniella Lott MD Cholesterol in VLDL [Mass/Vol] 10 mg/dL Normal [facility] Comment on above: Performed By: #### JP SMITH, CDP #### [facility] [address] [place], [place] [phone] [employer]: Daniella Lott MD Cholesterol.total/C holesterol in HDL [Mass ratio] 2.0 {ratio} Normal [facility] Comment on above: Performed By: #### JP SMITH, CDP #### [facility] [address] [place] [address] [employer]: Daniella Lott MD Triglyceride [Mass/Vol] 51 mg/dL Normal <150 [facility] Comment on above: Result Comment: Triglyceride Guidelines: <150 Desirable 150-199 Borderline 200-499 High >499 Very high Based on AHA Guidelines for fasting triglyceride, November 2011. Performed By: #### JP SMITH, CDP #### [facility] [address] [place] [address] [employer]: Daniella Lott MD No Panel Informationon 05-18 Interpretation and review of laboratory results Abnormal [facility] CBC auto differentialon 04-29 Basophils (Bld) [#/Vol] 0.03 10*3/uL [facility] Basophils/100 WBC (Bld) 1 % 0 - 2 % [facility] Eosinophils (Bld) [#/Vol] 0.06 10*3/uL [facility] Eosinophils/100 WBC (Bld) 1 % 1 - 4 % [facility] Erythrocyte distribution width (RBC) [Ratio] 13.5 % 11.8 - 14.4 % [facility] Hematocrit (Bld) [Volume fraction] 31.5 % Low 36.3 - 47.1 % [facility] Hemoglobin (Bld) [Mass/Vol] 10.1 g/dL Low 11.9 - 15.1 g/dL [facility] Immature granulocytes (Bld) [#/Vol] [facility] Immature granulocytes/100 WBC (Bld) 0 % 0 [facility] Interpretation and review of laboratory results Abnormal [facility] Lymphocytes/100 WBC (Bld) 27 % 24 - 43 % [facility] Lymphocytes/100 WBC (Bld) 1.53 % [facility] MCH (RBC) [Entitic mass] 31.6 pg 25.2 - 33.5 pg [facility] MCHC (RBC) [Mass/Vol] 32.1 g/dL 28.4 - 34.8 g/dL [facility] MCV (RBC) [Entitic vol] 98.4 fL 82.6 - 102.9 fL [facility] Monocytes/100 WBC (Bld) 11 % 3 - 12 % [facility] Monocytes/100 WBC (Bld) 0.65 % [facility] Neutrophils/100 WBC (Bld) 60 % 36 - 65 % [facility] Nucleated RBC/100 WBC (Bld) [Ratio] 0.0 % 0.0 per 100 WBC [facility] Platelet mean volume (Bld) [Entitic vol] 10.1 fL 8.1 - 13.5 fL [facility] Platelets (Bld) [#/Vol] 138 10*3/uL [facility] RBC (Bld) [#/Vol] 3.20 10*6/uL Low 3.95 - 5.1 1 m/uL [facility] Segmented neutrophils/100 WBC (Bld) 3.48 % [facility] WBC other (Bld) [#/Vol] 5.8 [facility] CBC with Diffon 05-18-2023 Abs. Basophil 0.03 k/uL Normal 0.00-0.20 [facility] Comment on above: Performed By: #### T ROPI #### [facility] [address] [place], [place] [id number] [employer]: Daniella Lott MD Abs.Imm.Granulocyte <0.03 Normal 0.00-0.30 [facility] Comment on above: Performed By: #### T ROPI #### [facility] [address] [place] [address] [employer]: Daniella Lott MD Abs.Neutrophil (Seg) 3.48 k/uL Normal 1.50-8.10 [facility] Comment on above: Performed By: #### T ROPI #### [facility] [address] [place] [address] [place] [address] [employer]: Daniella Lott MD Basophils/100 WBC (Bld) 1 % Normal 0-2 [facility] Comment on above: Performed By: #### T ROPI #### [address] [place], [facility] [employer]: Daniella Lott MD Eosinophils (Bld) [#/Vol] 0.06 10*3/uL Normal 0.00-0.44 [facility] Comment on above: Performed By: #### T ROPI #### [facility] [address] [place], [facility] [employer]: Daniella Lott MD Eosinophils/100 WBC (Bld) 1 % Normal 1-4 [facility] Comment on above: Performed By: #### T ROPI #### [facility] [address] [place] [address] [place] [address] [employer]: Daniella Lott MD Erythrocyte distribution width (RBC) [Ratio] 13.5 % Normal 11.8-14.4 [facility] Comment on above: Performed By: #### T ROPI #### [facility] [address] [place], [facility] [employer]: Daniella Lott MD Hematocrit (Bld) [Volume fraction] 31.5 % Low 36.3-47.1 [facility] Comment on above: Performed By: #### T ROPI #### [facility] [address] [place], [facility] [employer]: Daniella Lott MD Hemoglobin (Bld) [Mass/Vol] 10.1 g/dL Low 11.9-15.1 [facility] Comment on above: Performed By: #### T ROPI #### [address] [place], [facility] [employer]: Daniella Lott MD Immature granulocytes/100 WBC (Bld) 0 % Normal 0 [facility] Comment on above: Performed By: #### T ROPI #### [address] [place], [place] [address] [employer]: Daniella Lott MD Lymphocytes (Bld) [#/Vol] 1.53 10*3/uL Normal 1.10-3.70 [facility] Comment on above: Performed By: #### T ROPI #### [facility] [address] [place], [place] [address] [employer]: Daniella Lott MD Lymphocytes/100 WBC (Bld) 27 % Normal 24-43 [facility] Comment on above: Performed By: #### T ROPI #### [facility] [address] [place], [facility] [employer]: Daniella Lott MD MCH (RBC) [Entitic mass] 31.6 pg Normal 25.2-33.5 [facility] Comment on above: Performed By: #### T ROPI #### [facility] [address] [place] [address] [employer]: Dnaiella Lott MD MCHC (RBC) [Mass/Vol] 32.1 g/dL Normal 28.4-34.8 [facility] Comment on above: Performed By: #### T ROPI #### [facility] [address] [place], [facility] [employer]: Daniella Lott MD MCV (RBC) [Entitic vol] 98.4 fL Normal 82.6-102.9 [facility] Comment on above: Performed By: #### T ROPI #### [facility] [address] [place], [facility] [employer]: Daniella Lott MD Monocytes (Bld) [#/Vol] 0.65 10*3/uL Normal 0.10-1.20 [facility] Comment on above: Performed By: #### T ROPI #### [facility] [address] [place], [place] 1959783 [employer]: Daniella Lott MD Monocytes/100 WBC (Bld) 11 % Normal 3-12 [facility] Comment on above: Performed By: #### T ROPI #### [facility] [address] [place], [facility] [employer]: Daniella Lott MD Neutrophil (Seg) 60 % Normal 36-65 [facility] Comment on above: Performed By: #### T ROPI #### [facility] [address] [place], [facility] [employer]: Daniella Lott MD NRBC Automated 0.0 per 100 WBC Normal 0.0 [facility] Comment on above: Performed By: #### T ROPI #### [facility] [address] [place], [facility] [employer]: Daniella Lott MD Platelet mean volume (Bld) [Entitic vol] 10.1 fL Normal 8.1-13.5 [facility] Comment on above: Performed By: #### T ROPI #### [facility] [address] [place], [place] [id number] [employer]: Daniella Lott MD Platelets (Bld) [#/Vol] 138 10*3/uL Normal 138-453 [facility] Comment on above: Performed By: #### T ROPI #### [facility] [address] [place], [place] [address] [employer]: Daniella Lott MD RBC (Bld) [#/Vol] 3.20 10*6/uL Low 3.95-5.11 [facility] Comment on above: Performed By: #### T ROPI #### [facility] [address] [place], [place] [id number] [employer]: Daniella Lott MD WBC (Bld) [#/Vol] 5.8 10*3/uL Normal 3.5-11.3 [facility] Comment on above: Performed By: #### T ROPI #### [facility] [address] [place] [address] Dr. [place], [place] [address] [employer]: Daniella Lott MD Comp Metabolic Pr/rfx MGon 0 - Albumin [Mass/Vol] 3.1 g/dL Low 3.5-5.2 [facility] Comment on above: Performed By: #### T ROPI #### [facility] [address] [place], [place] 6122583 [employer]: Daniella Lott MD Albumin/Glob Ratio 1.3 Normal 1.0-2.5 [facility] Comment on above: Performed By: #### T ROPI #### [facility] [address] [place] [address] [employer]: Daniella Lott MD Alkaline Phos 58 U/L Normal 35-104 [facility] Comment on above: Performed By: #### T ROPI #### [facility] [address] [place], [place] 2208483 [employer]: Daniella Lott MD ALT [Catalytic activity/Vol] 5 U/L Normal 5-33 [facility] Comment on above: Performed By: #### T ROPI #### [facility] [address] [place], [place] 6[address]83 [employer]: Daniella Lott MD Anion gap [Moles/Vol] 10 mmol/L Normal 9-17 [facility] Comment on above: Performed By: #### T ROPI #### [facility] [address] [place], [place] 8592183 [employer]: Daniella Lott MD AST [Catalytic activity/Vol] 13 U/L Normal <32 [facility] Comment on above: Performed By: #### T ROPI #### [facility] [address] [place], [place] 2060183 [employer]: Daniella Lott MD Bilirubin [Mass/Vol] 0.6 mg/dL Normal 0.3-1.2 [facility] Comment on above: Performed By: #### T ROPI #### [facility] [address] [place], [place] 6323183 [employer]: Daniella Lott MD BUN/CRE Ratio 18 Normal 9-20 [facility] Comment on above: Performed By: #### T ROPI #### [facility] [address] [place], [place] 5769783 [employer]: Daniella Lott MD Calcium [Mass/Vol] 8.0 mg/dL Low 8.6-10.4 [facility] Comment on above: Performed By: #### T ROPI #### [facility] [address] [place], [place] [phone] [employer]: Daniella Lott MD Chloride [Moles/Vol] 104 mmol/L Normal 98-107 [facility] Comment on above: Performed By: #### T ROPI #### [facility] [address] [place] [address] [employer]: Daniella Lott MD CO2 [Moles/Vol] 22 mmol/L Normal 20-31 [facility] Comment on above: Performed By: #### T ROPI #### [facility] [address] [place] [address] [employer]: Daniella Lott MD Creatinine [Mass/Vol] 1.3 mg/dL High 0.5-0.9 [facility] Comment on above: Performed By: #### T ROPI #### [facility] [address] [place] [address] [employer]: Daniella Lott MD GFR/1.73 sq M.predicted among non-blacks MDRD (S/P/Bld) [Vol rate/Area] 44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 Phone: [facility] 07-28-2022 14:26-0400 Heart rate 57 /min Ayo Deal MD Work Phone: [facility] 07-28-2022 14:26-0400 Systolic blood pressure 136 mm[Hg] Ayo Deal MD Work Phone: [facility] 01-26-2022 14:43-0500 Body height 154.9 cm Ayo Deal MD Work Phone: [facility] 01-26-2022 14:43-0500 Body weight 62.87 kg Ayo Deal MD Work Phone: [facility] 01-26-2022 14:43-0500 Diastolic blood pressure 58 mm[Hg] Ayo Deal MD Work Phone: [facility] 01-26-2022 14:43-0500 Heart rate 68 /min Ayo Deal MD Work Phone: [facility] 01-26-2022 14:43-0500 Systolic blood pressure 104 mm[Hg] Ayo Deal MD Work Phone: [facility] 12-09-2021 14:35-0400 Diastolic blood pressure 71 mm[Hg] Chuck Tucker MD Work Phone: [facility] 12-09-2021 14:35-0400 Heart rate 57 /min Chuck Tucker MD Work Phone: [facility] 12-09-2021 14:35-0400 Systolic blood pressure 150 mm[Hg] Chuck Tucker MD Work Phone: [facility] 08-11-2021 12:52-0400 Body weight 65.77 kg Rupesh Gu DO Work Phone: [facility] 08-11-2021 12:52-0400 Diastolic blood pressure 70 mm[Hg] Rupesh Gu DO Work Phone: [facility] 08-11-2021 12:52-0400 Heart rate 54 /min Rupesh Gu DO Work Phone: [facility] 08-11-2021 12:52-0400 SaO2% (BldA) [Mass fraction] 96 % Rupesh Gu DO Work Phone: [facility] 08-11-2021 12:52-0400 Systolic blood pressure 130 mm[Hg] Rupesh Gu DO Work Phone: [facility] Encounters Encounter Date Encounter Type Care Provider Facility Start: 01-23-2024 End: 01-24-2024 Telephone encounter Kayla Monterroso MD Work Phone: Internal Medicine Comment on above: Medication Problem Start: 01-04-2024 End: 01-09-2024 ambulatory Kayla Monterroso MD Work Phone: Internal Medicine [facility] Start: 01-04-2024 End: 01-09-2024 Patient encounter procedure Kayla Monterroso MD Work Phone: Internal Medicine [place] [id number] Start: 01-03-2024 End: 01-03-2024 Admission to same day surgery center Brittney Vernon RN General Surgery Comment on above: Education Of Patient /family Start: 01-03-2024 End: 01-03-2024 ambulatory Brittney Vernon RN General Surgery Start: 01-02-2024 End: 01-02-2024 ambulatory KAYLA MONTERROSO Facility:[facility] Start: 01-02-2024 End: 01-02-2024 Patient encounter procedure Kaushik Lagos MD Work Phone: General Surgery Comment on above: Right inguinal herni a (Primary Dx) Start: 12-06-2023 End: 12-06-2023 Telephone encounter Lizzeth Martino RN NOC Comment on above: Follow Up Phone Call (RC follow up call first attempt./) Start: 12-02-2023 End: 12-03-2023 Evaluation and management of inpatient ROGELIO STOKES Facility:[facility] Start: 12-02-2023 End: 12-02-2023 ambulatory [facility] Facility:[facility] Start: 12-01-2023 End: 12-01-2023 ambulatory Rogelio Stokes MD Work Phone: Cardiology Comment on above: Patient Education (P / Watchman) Start: 11-29-2023 End: 11-29-2023 Orders Only Risa Warner APRN.PHLEBOTOMIST Work Phone: Kidney Medicine Comment on above: Benign hypertension with chronic kidney disease, stage III (HCC) (Primary Dx) Patient Update Start: 11-28-2023 End: 11-29-2023 Telephone encounter Rupesh Gu DO Work Phone: Cardiology Comment on above: order/ watchman proc edure Start: 11-24-2023 End: 11-24-2023 Telephone encounter Kayla Monterroso MD Work Phone: Internal Medicine Comment on above: Results; Appointment Start: 11-22-2023 End: 11-22-2023 ambulatory [facility] Facility:[facility] Start: 11-21-2023 End: 11-21-2023 Subsequent hospital visit by physician Shannan Zarate Work Phone: [facility] Radiology Ultrasound Comment on above: Abdominal wall bulge [R19.00] Start: 11-21-2023 End: 11-21-2023 ambulatory KAYLA MONTERROSO Facility:[facility] Start: 11-21-2023 End: 11-21-2023 Patient encounter procedure Risa Warner APRN.PHLEBOTOMIST Work Phone: Kidney Medicine Comment on above: Benign hypertension with chronic kidney disease, stage III (HCC) (Primary Dx); Stage 3b chronic kidney disease (HCC); Hyperlipidemia, unspecified hyperlipidemia type; Vitamin D deficiency Start: 11-17-2023 End: 11-17-2023 Telephone encounter Kaushik Rivero Radiology Comment on above: Appointment Start: 11-16-2023 End: 12-07-2023 Orders Only Rogelio Stokes MD Work Phone: Cardiology Comment on above: Paroxysmal atrial fi brillation (HCC) (Primary Dx) Appointment Reschedu led (Due to change in physician's schedule) Cardiac Clearance Start: 11-10-2023 End: 11-10-2023 Telephone encounter Kayla Monterroso MD Work Phone: Internal Medicine Comment on above: Orders Start: 11-09-2023 End: 11-09-2023 Orders Only Risa Warner APRN.PHLEBOTOMIST Work Phone: Kidney Medicine Comment on above: Stage 3b chronic kid jael disease (HCC) (Primary Dx) Start: 11-08-2023 End: 11-09-2023 Telephone encounter Kayla Monterroso MD Work Phone: Internal Medicine Comment on above: Results; Appointment Start: 11-08-2023 End: 11-08-2023 Patient encounter procedure Rupesh Gu DO Work Phone: Cardiology Comment on above: Paroxysmal atrial fi brillation (HCC) (Primary Dx); 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; Hypertension, unspecified type; Mixed hyperlipidemia; Non-rheumatic mitral regurgitation; PVD (peripheral vascular disease) (HCC) Start: 11-08-2023 End: 11-08-2023 ambulatory KAYLA MONTERROSO Facility:[facility] Start: 11-03-2023 End: 11-03-2023 ambulatory KAYLA MONTERROSO Facility:[facility] Start: 11-03-2023 End: 11-03-2023 Patient encounter procedure Kayla Monterroso MD Work Phone: Internal Medicine Comment on above: Medicare annual well ness visit, subsequent (Primary Dx); Advanced directives, counseling/discussion; Screening for depression; Encounter for screening examination for other mental health and behavioral disorders; Mixed hyperlipidemia; Asymptomatic postmenopausal status; Hypertension, unspecified type; History of ST elevation myocardial infarction (STEMI); Paroxysmal atrial fibrillation (HCC); CKD (chronic kidney disease) stage 4, GFR 15-29 ml/min (HCC); 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; Secondary renal hyperparathyroidism (HCC); Abdominal wall bulge; Gait instability Start: 10-21-2023 End: 10-21-2023 Refill Ayo Deal MD Work Phone: Cardiology Comment on above: Refill Request Start: 09-14-2023 Refill Ayo Tovar Work Phone: Cardiology Comment on above: Refill Request Start: 09-09-2023 End: 09-09-2023 Patient encounter procedure MD Kayla Monterroso Work Phone: [facility] Work Phone: Start: 09-09-2023 End: 09-09-2023 ambulatory MD Kayla Monterroso Work Phone: [facility] Work Phone: Start: 08-08-2023 Refill Stepan Roberts APRN.CNP Work Phone: Internal Medicine Comment on above: Refill Request Start: 08-08-2023 Telephone encounter Kayla tavares MD Work Phone: Internal Medicine Comment on above: Orders; Appointment Start: 08-08-2023 End: 08-08-2023 ambulatory KAYLA MONTERROSO Facility:[facility] Start: 08-08-2023 End: 08-08-2023 Patient encounter procedure Kayla Monterroso MD Work Phone: Internal Medicine Comment on above: History of ST elevat ion myocardial infarction (STEMI) (Primary Dx); Hypertension, unspecified type; Atherosclerotic peripheral vascular disease with intermittent claudication (HCC); 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; Paroxysmal atrial fibrillation (HCC); CKD (chronic kidney disease) stage 4, GFR 15-29 ml/min (HCC) Start: 08-08-2023 End: 08-08-2023 Telemedicine consultation with patient Kayla Monterroso MD Work Phone: Internal Medicine Start: 08-05-2023 End: 08-05-2023 ambulatory KAYLA MONTERROSO Facility:[facility] Start: 08-05-2023 End: 08-05-2023 Patient encounter procedure Ayo Deal MD Work Phone: Cardiology Comment on above: Atrial fibrillation, persistent (HCC) (Primary Dx); Hypertension, unspecified type; Atherosclerotic peripheral vascular disease with intermittent claudication (HCC); History of ST elevation myocardial infarction (STEMI); PAF (paroxysmal atrial fibrillation) (HCC); Unspecified severe protein-calorie malnutrition (HCC); Aortoiliac occlusive disease (HCC) Start: 08-02-2023 Telephone encounter Kayla tavares MD Work Phone: Internal Medicine Comment on above: Appointment Start: 08-01-2023 Refill Juan Gutiérrez APRN.PHLEBOTOMIST Work Phone: Internal Medicine Comment on above: Refill Request Start: 07-28-2023 End: 07-28-2023 ambulatory JUAN JASON Facility:[facility] Start: 07-28-2023 End: 07-28-2023 Patient encounter procedure Stepan Roberts TELEX OPERATOR.PHLEBOTOMIST Work Phone: Internal Medicine Comment on above: Follow-up exam (Prim carole Dx); Hypertension, unspecified type; CKD (chronic kidney disease) stage 4, GFR 15-29 ml/min (HCC); Paroxysmal atrial fibrillation (HCC); Mixed hyperlipidemia Start: 07-20-2023 Telephone encounter Kayla tavares MD Work Phone: Internal Medicine Start: 07-19-2023 Refill Ayo Tovar Work Phone: Cardiology Comment on above: Refill Request Start: 07-06-2023 Telephone encounter Kayla tavares MD Work Phone: Internal Medicine Comment on above: Home Care Start: 07-04-2023 Telephone encounter Rogelio Stokes MD Work Phone: Cardiology Comment on above: Procedure (EP: PVI + Watchman) Start: 07-01-2023 Telephone encounter Kayla tavares MD Work Phone: Internal Medicine Comment on above: Medication Question Start: 06-27-2023 ambulatory Ayo Tovar Work Phone: Cardiology Start: 06-27-2023 Patient encounter procedure Lore Deal MD Work Phone: Cardiology Start: 06-22-2023 End: 06-22-2023 ambulatory [facility] Facility:[facility] Start: 06-22-2023 End: 06-22-2023 Patient encounter procedure Rogelio Stokes MD Work Phone: Cardiology Comment on above: Atrial fibrillation, persistent (HCC) (Primary Dx) Start: 06-22-2023 End: 06-22-2023 ambulatory [facility] Facility:[facility] Start: 06-03-2023 Telephone encounter Ayo dooley MD Work Phone: Cardiology Comment on above: Patient Update Start: 05-30-2023 End: 05-30-2023 ambulatory [facility] Facility:[facility] Start: 05-30-2023 End: 05-30-2023 Patient encounter procedure Juan Gutiérrez APRN.CNP Work Phone: Cardiology Comment on above: Paroxysmal atrial fi brillation (HCC) (Primary Dx); Acute on chronic heart failure with preserved ejection fraction (HCC) Start: 05-27-2023 Telephone encounter Ayo dooley MD Work Phone: Cardiology Comment on above: Please call Patient' s significant other as soon as possible Start: 05-26-2023 Telephone encounter Kayla tavares MD Work Phone: [address] [place] [address] Comment on above: Orders (HHC) Start: 05-26-2023 ambulatory KAYLA MONTERROSO Facility:[facility] Start: 05-20-2023 Telephone encounter Ayo dooley MD Work Phone: Cardiology Comment on above: ER/Urgent Referral Start: 05-20-2023 End: 05-20-2023 Emergency department patient visit FREDDY DOUGHERTY [facility] Start: 05-17-2023 End: 05-19-2023 Evaluation and management of inpatient LUIS ESTRELLA [facility] Start: 05-17-2023 End: 05-19-2023 Evaluation and management of inpatient Arabella Kenisha Dutton DO Work Phone: [facility] ICU Comment on above: Chest pain, unspecif ied type (Primary Dx); Right sided abdominal pain; 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; Mixed hyperlipidemia; Essential hypertension; Acute deep vein thrombosis (DVT) of distal vein of right lower extremity (HCC) Start: 05-17-2023 End: 05-17-2023 FQHC visit new patient Eden Yañez PHLEBOTOMIST Work Phone: [facility] Work Phone: Start: 05-17-2023 End: 05-17-2023 Emergency department patient visit Izzy Chu DDS Work Phone: [facility] Work Phone: Start: 05-16-2023 ambulatory Izzy Chu DDS [facility] Start: 04-25-2023 End: 04-25-2023 ambulatory KAYLA KRISS Facility:[facility] Start: 03-31-2023 ambulatory [facility] messina [facility] [place] Comment on above: Population Health Na vigation Outreach ([facility] Outreach ) Start: 03-14-2023 End: 03-14-2023 ambulatory RENAE GERMAN Facility:[facility] Start: 03-03-2023 End: 03-03-2023 ambulatory SRINATH ROSEN Facility:[facility] Start: 02-25-2023 End: 02-25-2023 ambulatory HIRAM ALDANA Facility:[facility] Start: 02-02-2023 ambulatory Kayla Monterroso MD Work Phone: Internal Medicine [facility] Start: 01-28-2023 Refill Vielka La vargas TELEX OPERATOR.PHLEBOTOMIST Work Phone: Cardiology Comment on above: Refill Request Start: 01-28-2023 End: 01-28-2023 ambulatory KAYLA MONTERROSO Facility:[facility] Start: 01-28-2023 End: 01-28-2023 Patient encounter procedure Ayo Deal MD Work Phone: Cardiology Comment on above: Paroxysmal atrial fi brillation (HCC) (Primary Dx); Aortoiliac occlusive disease (HCC) Start: 01-14-2023 End: 01-14-2023 Patient encounter procedure Eileen Jackson MD Work Phone: Neurology Comment on above: APPOINTMENT CANCELLE D (Primary Dx); Pulsatile tinnitus, left ear Start: 11-15-2022 End: 11-15-2022 Patient encounter procedure Risa Warner TELEX OPERATOR.PHLEBOTOMIST Work Phone: Kidney Medicine Comment on above: Benign hypertension with chronic kidney disease, stage III (HCC) (Primary Dx); Stage 3b chronic kidney disease (HCC); Hyperlipidemia, unspecified hyperlipidemia type Carotid artery steno sis, asymptomatic, bilateral (Primary Dx); PVD (peripheral vascular disease) (HCC); Aortoiliac occlusive disease (HCC) Start: 10-21-2022 End: 10-21-2022 Patient encounter procedure Bryant Salgado TELEX OPERATOR.PHLEBOTOMIST Work Phone: Internal Medicine Comment on above: Encounter for Medica re annual wellness exam (Primary Dx); 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; Mixed hyperlipidemia; Paroxysmal atrial fibrillation (HCC); Essential hypertension; Atherosclerotic peripheral vascular disease with intermittent claudication (HCC); CKD (chronic kidney disease) stage 4, GFR 15-29 ml/min (HCC) Start: 07-28-2022 End: 07-28-2022 Patient encounter procedure Ayo Deal MD Work Phone: Cardiology Comment on above: Paroxysmal atrial fi brillation (HCC) (Primary Dx); Hypertension, unspecified type; Atherosclerotic peripheral vascular disease with intermittent claudication (HCC); Aortoiliac occlusive disease (HCC) Start: 05-26-2022 Refill Kayla Monterroso MD Work Phone: [address] [place] [address] Comment on above: Refill Request Start: 03-03-2022 ambulatory Kayla Monterroso MD Work Phone: Internal Medicine [facility] [place] Start: 02-23-2022 End: 02-24-[address] HSIEH [facility] Facility: Start: 01-26-2022 End: 01-26-2022 Patient encounter procedure Ayo Deal MD Work Phone: Cardiology Comment on above: Paroxysmal atrial fi brillation (HCC) (Primary Dx); History of ST elevation myocardial infarction (STEMI); PAF (paroxysmal atrial fibrillation) (HCC) Start: 01-14-2022 End: 01-14-2022 ambulatory EILEEN Leo [facility] Facility:[facility] Start: 12-17-2021 ambulatory Gabriella allison [facility] [place] Comment on above: Population Health Na vigation Outreach (Spouse of [facility] outreach pt) Start: 12-09-2021 End: 12-09-2021 Patient encounter procedure Chuck Tucker MD Work Phone: Vascular Surgery Comment on above: Aortoiliac occlusive disease (HCC) (Primary Dx); Carotid artery stenosis, asymptomatic, bilateral Start: 12-08-2021 Refill Janey Patricia DO Work Phone: Kidney Medicine Comment on above: Refill Request Start: 12-07-2021 Telephone encounter Chuck bauman MD Work Phone: Vascular Surgery Comment on above: Appointment Start: 11-12-2021 ambulatory Mile burt APRN.CNP Work Phone: Pulmonary Medicine Start: 11-11-2021 End: 11-11-2021 ambulatory Macrina Vaughan PA-C Work Phone: Otolaryngology Comment on above: Pulsatile tinnitus, left ear (Primary Dx); Lightheadedness; Tinnitus of left ear; Tension-type headache, not intractable, unspecified chronicity pattern Start: 11-11-2021 End: 11-11-2021 Telemedicine consultation with patient Macrina Vaughan PA-C Work Phone: [facility] Start: 10-30-2021 Orders Only Renae German APRN.PHLEBOTOMIST Work Phone: Vascular Surgery Comment on above: [...] Kayla Monterroso MD Work Phone: [facility] Start: 09-18-2021 Refill Kayla Monterroso MD Work Phone: Internal Medicine Comment on above: Refill Request Start: 08-11-2021 End: 08-11-2021 Patient encounter procedure Rupesh Gu DO Work Phone: Cardiology Comment on above: Paroxysmal atrial fi brillation (HCC) (Primary Dx); 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; Hypertension, unspecified type; Mixed hyperlipidemia; Non-rheumatic mitral regurgitation; PVD (peripheral vascular disease) (HCC) Start: 06-26-2021 Orders Only Ayo Tovar Work Phone: Cardiology Comment on above: Paroxysmal atrial fi brillation (HCC) (Primary Dx) Start: 06-17-2021 Telephone encounter Risa Warner APRN.PHLEBOTOMIST Work Phone: Kidney Medicine Comment on above: Appointment Start: 05-29-2020 End: 05-29-2020 Subsequent hospital visit by physician Ronnie Mazariegos 1 Work Phone: Radiology Comment on above: Pain in right foot [ M79.671] Start: 09-30-2016 End: 10-01-2016 Ambulatory GILMER PETTYHEIM Facility:[facility] Procedures Date Procedure Procedure Detail Performing Clinician Start: 11-22-2023 Antibody screen KAYLA UNGER Comment on above: Order Comment: Speci men Type: BLOOD SPECIMENOrdering Facility: [facility] Address: [address] [place] [address] Performed By: #### T [id number] ####CC MAIN BLOOD BANKCLIA [id number] [address] [place] Start: 11-08-2023 Lipid 1996 panel - S kay or Plasma Rupesh Anthony DO Work Phone: Start: 11-03-2023 Adult depression scr eening assessment Rupesh Anthony DO Work Phone: Start: 10-21-2023 Antibody screen KAYLA UNGER Comment on above: Order Comment: Speci men Type: BLOOD SPECIMENOrdering Facility: [facility] Address: [address] [place] [address] Performed By: #### T [id number] ####CC MAIN BLOOD BANKCLIA [id number] [address] [place] Start: 05-19-2023 Natriuretic peptide Jose Telles MD [...] w/least 12 lds i&r only Laine Tejeda [facility] Work Phone: Start: 05-18-2023 Mri abdomen w/o & w/ contrast material Luis Estrella MD Work Phone: Start: 05-18-2023 Blood count complete auto&auto difrntl wbc Laine Tejeda [facility] Work Phone: Start: 05-17-2023 Intermittent [...] 05-17-2023 Antibody hiv-1&hiv-2 single result Eden Yañez PHLEBOTOMIST Work Phone: Start: 05-17-2023 Aspirin 81mg Oral Tab,EBOX Eden Yañez PHLEBOTOMIST Work Phone: Start: 05-17-2023 Current tobacco non- user cad cap copd pv dm Eden Yañez [facility] Work Phone: Start: 05-17-2023 Most recent diastoli c blood pressure 80-89 mm hg Eden Yañez [facility] Work Phone: Start: 05-17-2023 Most recent systolic blood pres>/equal 140 mm hg Eden Yañez [facility] Work Phone: Start: 05-17-2023 Nitroglycerine 0.4 M g Sublingual eACH, EBOX Eden Yañez PHLEBOTOMIST Work Phone: Start: 05-17-2023 Pt-focused hlth risk assmt score doc stnd instrm Eden Yañez PHLEBOTOMIST Work Phone: Start: 05-17-2023 Ct thorax w/contrast material Arabella De Nato DO Work Phone: Start: 05-17-2023 Radiologic exam ches t single view Arabella R Dutton DO Work Phone: Start: 05-17-2023 End: 05-17-2023 Ecg routine ecg w/least 12 lds w/i&r Eden Yañez PHLEBOTOMIST Work Phone: Start: 05-17-2023 End: 05-17-2023 Comprehensive metabolic panel Arabella Dutton DO Work Phone: Start: 01-28-2023 Ecg routine ecg w/le ast 12 lds i&r only Ayo Deal MD Work Phone: Start: 01-28-2023 Lipid 1996 panel - S kay or Plasma Vielka Pennington APRN.PHLEBOTOMIST Work Phone: Start: 07-28-2022 Ecg routine ecg w/le ast 12 lds i&r only [facility] Provider Start: 11-27-2020 Lipid 1996 panel - S kay or Plasma Risa Warnre APRN.PHLEBOTOMIST Work Phone: Start: 09-27-2020 Adult depression scr eening assessment Risa Warner APRN.PHLEBOTOMIST Work Phone: Start: 07-29-2020 Mammography Risa smith TELEX OPERATOR.PHLEBOTOMIST Work Phone: Start: 05-29-2020 Radex foot complete minimum 3 views Claudine Jackson DPM Work Phone: Start: 03-28-2019 Colonoscopy Risa smith APRN.PHLEBOTOMIST Work Phone: Plan of Treatment Date Care Activity Detail Author Start: 11-07-2028 Lipid panel Lipid Screening [facility] Start: 05-18-2028 Lipid panel Lipid Screening [facility] Start: 01-29-2028 Lipid 1996 panel - Serum or Plasma Lipid Screening [facility] Start: 01-29-2028 Lipid panel Lipid Screening [facility] Start: 11-07-2026 Diabetes Screening Diabetes Screening [facility] Start: 10-20-2026 Diabetes Screening Diabetes Screening [facility] Start: 07-27-2026 Diabetes Screening Diabetes Screening [facility] Start: 05-29-2026 Diabetes Screening Diabetes Screening [facility] Start: 2026 RSV Vaccine (1 - 1-dose 75+ series) RSV Vaccine (1 - 1-dose 75+ series) [facility] Start: 01-28-2026 Diabetes Screening Diabetes Screening [facility] Start: 11-27-2025 Lipid 1996 panel - Serum or Plasma Lipid Screening [facility] Start: 11-27-2025 LIPID SCREEN LIPID SCREEN [facility] Start: 07-28-2025 DIABETES SCREEN DIABETES SCREEN [facility] Start: 07-28-2025 Diabetes Screening Diabetes Screening [facility] Start: 01-01-2025 BP Controlled (<130/80) BP Controlled (<130/80) [facility] Start: 11-21-2024 Creatinine measurement Serum Creatinine [facility] Start: 11-20-2024 BP Controlled (<130/80) BP Controlled (<130/80) [facility] Start: 11-07-2024 Complete blood count Hemoglobin/Hematocrit [facility] Start: 11-07-2024 Creatinine measurement Serum Creatinine [facility] Start: 11-07-2024 Hepatitis B surface antibody level LDL Cholesterol [facility] Start: 11-02-2024 Annual PCP Team Chronic Disease Visit Annual PCP Team Chronic Disease Visit [facility] Start: 11-02-2024 Anxiety Screening Anxiety Screening [facility] Start: 11-02-2024 Depression Screening Depression Screening [facility] Start: 10-20-2024 Complete blood count Hemoglobin/Hematocrit [facility] Start: 10-20-2024 Creatinine measurement Serum Creatinine [facility] Start: 08-07-2024 Annual PCP Team Chronic Disease Visit Annual PCP Team Chronic Disease Visit [facility] Start: 07-27-2024 Annual PCP Team Chronic Disease Visit Annual PCP Team Chronic Disease Visit [facility] Start: 07-27-2024 BP Controlled (<130/80) BP Controlled (<130/80) [facility] Start: 07-27-2024 Complete blood count Hemoglobin/Hematocrit [facility] Start: 07-27-2024 Creatinine measurement Serum Creatinine [facility] Start: 05-29-2024 BP Controlled (<130/80) BP Controlled (<130/80) [facility] Start: 05-29-2024 Creatinine measurement Serum Creatinine [facility] Start: 05-25-2024 Annual PCP Team Chronic Disease Visit Annual PCP Team Chronic Disease Visit [facility] Start: 05-24-2024 End: 05-24-2024 Patient encounter procedure 05/24/2024 11:30 AM EDT Office Visit Cardiology [address] [place] [address] [place] [address] [place], [place] [id number] Follow up/ Dr. deal Cardiology Comment on above: Follow up/ Dr. deal Start: 05-22-2024 End: 05-22-2024 Patient encounter procedure 05/22/2024 10:40 AM EDT Office Visit Kidney Medicine [address] [place] [address] Janey Patricia DO [address] [place], [place] [id number] Return in about 6 months (around 05/20/2024) for Harshad 6 months Kidney Medicine Comment on above: Return in about 6 months (around 05/21/19) for Harshad 6 months Start: 05-20-2024 End: 08-19-2024 25-hydroxyvitamin D3 [Mass/volume] in Serum or Plasma VITAMIN D 25 HYDROXY Lab Routine Benign hypertension with chronic kidney disease, stage III (HCC) Stage 3b chronic kidney disease (HCC) Hyperlipidemia, unspecified hyperlipidemia type Vitamin D deficiency Expected: 05/20/2024, Expires: 08/19/2024 [facility] Comment on above: Expected: 05/20/2024, Expires: Start: 05-20-2024 End: 08-19-2024 CBC panel - Blood by Automated count COMPLETE BLOOD COUNT Lab Routine Benign hypertension with chronic kidney disease, stage III (HCC) Stage 3b chronic kidney disease (HCC) Hyperlipidemia, unspecified hyperlipidemia type Vitamin D deficiency Expected: 05/20/2024, Expires: 08/19/2024 [facility] Comment on above: Expected: 05/20/2024, Expires: Start: 05-20-2024 End: 08-19-2024 Creatinine [Mass/volume] in Urine collected for unspecified duration CREATININE RANDOM URINE Lab Routine Benign hypertension with chronic kidney disease, stage III (HCC) Stage 3b chronic kidney disease (HCC) Hyperlipidemia, unspecified hyperlipidemia type Vitamin D deficiency Expected: 05/20/2024, Expires: 08/19/2024 [facility] Comment on above: Expected: 05/20/2024, Expires: Start: 05-20-2024 End: 08-19-2024 Microalbumin/Creatinine [Mass Ratio] in Urine ALBUMIN/CREATININE RATIO, URINE Lab Routine Benign hypertension with chronic kidney disease, stage III (HCC) Stage 3b chronic kidney disease (HCC) Hyperlipidemia, unspecified hyperlipidemia type Vitamin D deficiency Expected: 05/20/2024, Expires: 08/19/2024 [facility] Comment on above: Expected: 05/20/2024, Expires: Start: 05-20-2024 End: 08-19-2024 Parathyrin.intact [Mass/volume] in Serum or Plasma PTH INTACT Lab Routine Benign hypertension with chronic kidney disease, stage III (HCC) Stage 3b chronic kidney disease (HCC) Hyperlipidemia, unspecified hyperlipidemia type Vitamin D deficiency Expected: 05/20/2024, Expires: 08/19/2024 [facility] Comment on above: Expected: 05/20/2024, Expires: Start: 05-20-2024 End: 08-19-2024 Protein [Mass/volume] in Urine PROTEIN RANDOM URINE Lab Routine Benign hypertension with chronic kidney disease, stage III (HCC) Stage 3b chronic kidney disease (HCC) Hyperlipidemia, unspecified hyperlipidemia type Vitamin D deficiency Expected: 05/20/2024, Expires: 08/19/2024 [facility] Comment on above: Expected: 05/20/2024, Expires: Start: 05-20-2024 End: 08-19-2024 Renal function 2000 panel - Serum or Plasma RENAL FUNCTION PANEL Lab Routine Benign hypertension with chronic kidney disease, stage III (HCC) Stage 3b chronic kidney disease (HCC) Hyperlipidemia, unspecified hyperlipidemia type Vitamin D deficiency Expected: 05/20/2024, Expires: 08/19/2024 [facility] Comment on above: Expected: 05/20/2024, Expires: Start: 05-19-2024 Complete blood count Hemoglobin/Hematocrit [facility] Start: 05-18-2024 GFR test (Diabetes, CKD 3-4, OR last GFR 15-59) GFR test (Diabetes, CKD 3-4, OR last GFR 15-59) [facility] Start: 05-18-2024 Hepatitis B surface antibody level LDL Cholesterol [facility] Start: 05-17-2024 End: 05-17-2024 Patient encounter procedure 05/17/2024 1:00 PM EDT Office Visit Cardiology [address] [place] [address] Rupesh Gu DO [address] [place] [address] Return in about 6 months (around 05/07/2024). Cardiology Comment on above: Return in about 6 months (around 05/08/19). Start: 05-03-2024 End: 05-03-2024 Patient encounter procedure 05/03/2024 3:25 PM EST Appointment Radiology [address] [place] [address] Asymptomatic postmenopausal status [Z78.0] Radiology Comment on above: Asymptomatic postmenopausal status [Z78. 0] Start: 05-03-2024 End: 05-03-2024 Patient encounter procedure 05/03/2024 12:40 PM EST Office Visit Internal Medicine [address] [place] [address] [place] [address] [place] [address] Return in about 6 months (around 05/02/2024). Internal Medicine Comment on above: Return in about 6 months (around ). Start: 04-25-2024 Annual PCP Team Chronic Disease Visit Annual PCP Team Chronic Disease Visit [facility] Start: 03-28-2024 Colonoscopy COLONOSCOPY [facility] Start: 03-28-2024 COLORECTAL CANCER SCREENING COLORECTAL CANCER SCREENING [facility] Start: 03-28-2024 Screening for malignant neoplasm of colon [facility] Start: 03-14-2024 BP Controlled (<130/80) BP Controlled (<130/80) [facility] Start: 03-06-2024 End: 03-06-2024 Patient encounter procedure 03/06/2024 3:30 PM EST Office Visit Cardiology [address] [place] [address] Akila Calabrese APRN.PHLEBOTOMIST [address] [place] [address] DX 3 MONTH Cardiology Comment on above: DX 3 MONTH Start: 03-06-2024 End: 03-06-2024 ambulatory 03/06/2024 2:30 PM EST Results Only Cardiology [address] [place] [address] DX 3 MONTH Cardiology Comment on above: DX 3 MONTH Start: 03-06-2024 End: 03-06-2024 Patient encounter procedure 03/06/2024 12:30 PM EST Office Visit Cardiology [address] [place] [address] DX 3 MONTH Cardiology Comment on above: DX 3 MONTH Start: 02-28-2024 End: 02-28-2024 Admission to same day surgery center [facility] Comment on above: LAPAROSCOPIC HERNIORRHAPHY, INGUINAL INI TIAL Start: 02-28-2024 End: 02-28-2024 Laparoscopy surg rpr initial inguinal hernia LAPAROSCOPIC HERNIORRHAPHY, INGUINAL INITIAL Unilateral inguinal hernia without obstruction or gangrene, recurrence not specified 02/28/2024 7:30 AM EST [facility] Start: 02-28-2024 End: 02-28-2024 Rpr 1st ingun hrna age 6 yrs/> reducible HERNIORRHAPHY INGUINAL ELECTIVE ADULT REDUCIBLE Unilateral inguinal hernia without obstruction or gangrene, recurrence not specified 02/28/2024 7:30 AM EST [facility] OR Start: 02-28-2024 Subsequent hospital visit by physician 02/28/2024 7:30 AM EST Hospital Encounter [facility] [address] [place] [address] [place] [address] [place], [place] [id number] Unilateral inguinal hernia without obstruction or gangrene, recurrence not specified [K40.90] [facility] Comment on above: Unilateral inguinal hernia without obstr uction or gangrene, recurrence not specified [K40.90] Start: 02-17-2024 End: 02-17-2024 Patient encounter procedure 02/17/2024 2:30 PM EST Office Visit Cardiology [address] [place] [id number] Ny Simons APRN.PHLEBOTOMIST [address] [place] [address] DX 3 MONTH Cardiology Comment on above: DX 3 MONTH Start: 02-17-2024 End: 02-17-2024 ambulatory 02/17/2024 1:30 PM EST Results Only Cardiology [address] [id number] DX 3 MONTH Cardiology Comment on above: DX 3 MONTH Start: 02-17-2024 End: 02-17-2024 Patient encounter procedure 02/17/2024 10:30 AM EST Office Visit Cardiology [address] [place] [address] DX 3 MONTH Cardiology Comment on above: DX 3 MONTH Start: 02-16-2024 End: 02-16-2024 Patient encounter procedure Vascular Lab Comment on above: ULTRA DUP ABD AORTA COMPLETE PVR LEG LINSEY 1 YEAR FOLLOW UP 6 month follow up Start: 02-09-2024 End: 02-09-2024 Anesthesia consultation 02/09/2024 11:00 AM EST PAT Pre Anesthesia [address] [place] [address] VV - [phone] Pre Anesthesia Comment on above: VV - [phone] Start: 02-01-2024 End: 05-02-2024 Comprehensive metabolic 2000 panel - Serum or Plasma COMPREHENSIVE METABOLIC PANEL Lab Routine Atrial fibrillation, persistent (HCC) Hypertension, unspecified type Atherosclerotic peripheral vascular disease with intermittent claudication (HCC) History of ST elevation myocardial infarction (STEMI) PAF (paroxysmal atrial fibrillation) (HCC) Expected: 02/01/2024 (Approximate), Expires: 05/02/2024 [facility] Work Phone: Comment on above: Expected: 02/01/2024 (Approximate), Expi res: 05/02/2024 Start: 02-01-2024 End: 05-02-2024 Magnesium [Mass/volume] in Serum or Plasma MAGNESIUM Lab Routine Atrial fibrillation, persistent (HCC) Hypertension, unspecified type Atherosclerotic peripheral vascular disease with intermittent claudication (HCC) History of ST elevation myocardial infarction (STEMI) PAF (paroxysmal atrial fibrillation) (HCC) Expected: 02/01/2024 (Approximate), Expires: 05/02/2024 [facility] Comment on above: Expected: 02/01/2024 (Approximate), Expi res: 05/02/2024 Start: 02-01-2024 End: 05-02-2024 Thyrotropin [Units/volume] in Serum or Plasma THYROID STIMULATING HORMONE Lab Routine Atrial fibrillation, persistent (HCC) Hypertension, unspecified type Atherosclerotic peripheral vascular disease with intermittent claudication (HCC) History of ST elevation myocardial infarction (STEMI) PAF (paroxysmal atrial fibrillation) (HCC) Expected: 02/01/2024 (Approximate), Expires: 05/02/2024 [facility] Comment on above: Expected: 02/01/2024 (Approximate), Expi res: 05/02/2024 Start: 01-29-2024 BP Controlled (<130/80) BP Controlled (<130/80) [facility] Start: 01-29-2024 Complete blood count Hemoglobin/Hematocrit [facility] Start: 01-29-2024 Creatinine measurement Serum Creatinine [facility] Start: 01-29-2024 Hemoglobin/Hematocrit Hemoglobin/Hematocrit [facility] Start: 01-29-2024 Hepatitis B surface antibody level LDL Cholesterol [facility] Start: 01-29-2024 Serum Creatinine Serum Creatinine [facility] Start: 01-15-2024 BP Controlled (<130/80) BP Controlled (<130/80) [facility] Start: 01-09-2024 End: 01-09-2024 Patient encounter procedure 01/09/2024 3:00 PM EST Office Visit Cardiology [address] [place], [place] [phone] Rupesh Gu DO [address] [facility] [place], [place] [phone] Return in about 6 months (around 09/12/2023). Cardiology Comment on above: Return in about 6 months (around 09/12/19 24). Start: 01-06-2024 End: 01-06-2024 Patient encounter procedure 01/06/2024 12:45 PM EST Appointment Radiology [address] [place], [place] [phone] US HIP RT; MEDIAL-EVAL FOR RT INGUINAL HERNIA, PT CONFIRMS RT SIDE TO SCAN Radiology Comment on above: US HIP RT; MEDIAL-EVAL FOR RT INGUINAL H ERNIA, PT CONFIRMS RT SIDE TO SCAN Start: 01-02-2024 End: 01-02-2024 Patient encounter procedure 01/02/2024 3:40 PM EST Office Visit General Surgery [address] [place], [place] [phone] [place] [address] [address] [place], [place] [id number] Other specified abdominal hernia without obstruction or gangrene [K45.8] General Surgery Comment on above: Other specified abdominal hernia without obstruction or gangrene [K45.8] Start: 12-02-2023 End: 12-02-2023 Admission to same day surgery center [facility] EP Lab Comment on above: COMPLETE EPS W/PVI ABL W/WO 3D MAP ICE Start: 12-02-2023 End: 12-02-2023 Ephys evl trnsptl tx atrial fib isolat pulm vein EP LAB Start: 12-02-2023 End: 12-02-2023 Perq clsr tcat l atr apndge w/endocardial implnt EP LAB Start: 12-02-2023 Subsequent hospital visit by physician [facility] EP Lab Comment on above: Atrial fibrillation, unspecified type (H CC) [I48.91] Start: 12-02-2023 End: 12-02-2023 Patient encounter procedure Admitting Comment on above: PVI+WATCHMAN TO BE DONE IN THE [facility] Start: 11-29-2023 End: 02-28-2024 Renal function 2000 panel - Serum or Plasma RENAL FUNCTION PANEL Lab Routine Benign hypertension with chronic kidney disease, stage III (HCC) Expected: 11/29/2023, Expires: 02/28/2024 [facility] Work Phone: Comment on above: Expected: 11/29/2023, Expires: 4 Start: 11-28-2023 DIABETES SCREEN DIABETES SCREEN [facility] Start: 11-22-2023 End: 11-15-2024 TYPE AND SCREEN,30 DAY TYPE AND SCREEN,30 DAY Blood Bank Routine Paroxysmal atrial fibrillation (HCC) Expected: 11/22/2023, Expires: 11/15/2024 [facility] Work Phone: Comment on above: Expected: 11/22/2023, Expires: 5 Start: 11-21-2023 End: 02-20-2024 Renal function 2000 panel - Serum or Plasma RENAL FUNCTION PANEL Lab Routine Benign hypertension with chronic kidney disease, stage III (HCC) Stage 3b chronic kidney disease (HCC) Hyperlipidemia, unspecified hyperlipidemia type Expected: 11/21/2023, Expires: 02/20/2024 [facility] Comment on above: Expected: 11/21/2023, Expires: 4 Start: 11-21-2023 End: 02-20-2024 Urinalysis complete panel - Urine URINALYSIS, WITH MICROSCOPIC Lab Routine Benign hypertension with chronic kidney disease, stage III (HCC) Stage 3b chronic kidney disease (HCC) Hyperlipidemia, unspecified hyperlipidemia type Expected: 11/21/2023, Expires: 02/20/2024 [facility] Work Phone: Comment on above: Expected: 11/21/2023, Expires: 4 Start: 11-21-2023 End: 11-21-2023 Patient encounter procedure [facility] Radiology Ultrasound Comment on above: sent message- possibly needs to be seen in [facility] SP spoke with orderign SUZANNE lu for RLQ for possible abd wall hernia. The pelvis limited will be changed to a US HIP and scheduled in [facility] to look for inguinal hernia SP Start: 11-21-2023 End: 11-21-2023 Patient encounter procedure 11/21/2023 10:30 AM EDT Office Visit Kidney Medicine [address] [place] [address] Risa Warner APRN.PHLEBOTOMIST [address] [place] [address] Return in about 1 year (around 11/16/2023). Kidney Medicine Comment on above: Return in about 1 year (around 11/16/2023 ). Start: 11-17-2023 End: 11-17-2023 Admission to same day surgery center 11/17/2023 1:00 PM EDT - 11/17/2023 4:28 PM EDT Surgery HOSP EP Lab [address] [place] [address] Rogelio Stokes MD [address] [place], [place] [phone] COMPLETE EPS W/PVI ABL W/WO 3D MAP ICE HOSP EP Lab Comment on above: COMPLETE EPS W/PVI ABL W/WO 3D MAP ICE Start: 11-17-2023 End: 11-17-2023 Ephys evl trnsptl tx atrial fib isolat pulm vein COMPLETE EPS W/PVI ABL W/WO 3D MAP ICE Atrial fibrillation, unspecified type (HCC) 11/17/2023 1:00 PM EDT EP LAB Start: 11-17-2023 End: 11-17-2023 Perq clsr tcat l atr apndge w/endocardial implnt PERC TRANSCATH CLOSURE LEFT ATRIAL APPENDAGE W/IMPLANT,INCLUSIVE OF FLUORO,TRANSEPTAL PUNCTURE,CATH PLACEMENT(S) ANGIO,WHEN PERFORMED,RAD S&I Atrial fibrillation, unspecified type (HCC) 11/17/2023 1:00 PM EDT EP LAB Start: 11-17-2023 Subsequent hospital visit by physician 11/17/2023 1:00 PM EDT Hospital Encounter HOSP EP Lab [address] [place] [address] Rogelio Stokes MD [address] [place] [address] Atrial fibrillation, unspecified type (HCC) [I48.91] HOSP EP Lab Comment on above: Atrial fibrillation, unspecified type (H CC) [I48.91] Start: 11-17-2023 End: 11-17-2023 Patient encounter procedure Cardiology Comment on above: TO BE DONE IN THE LAB PVI+WATCHMAN Start: 11-16-2023 End: 01-16-2024 25-hydroxyvitamin D3 [Mass/volume] in Serum or Plasma VITAMIN D 25 HYDROXY Lab Routine Benign hypertension with chronic kidney disease, stage III (HCC) Stage 3b chronic kidney disease (HCC) Hyperlipidemia, unspecified hyperlipidemia type Expected: 11/16/2023, Expires: 01/16/2024 [facility] Work Phone: Comment on above: Expected: 11/16/2023, Expires: Start: 11-16-2023 End: 01-16-2024 ALBUMIN/CREAT RATIO RND UR ALBUMIN/CREAT RATIO RND UR Lab Routine Benign hypertension with chronic kidney disease, stage III (HCC) Stage 3b chronic kidney disease (HCC) Hyperlipidemia, unspecified hyperlipidemia type Expected: 11/16/2023, Expires: 01/16/2024 [facility] Work Phone: Comment on above: Expected: 11/16/2023, Expires: Start: 11-16-2023 End: 01-16-2024 CBC panel - Blood by Automated count CBC Lab Routine Benign hypertension with chronic kidney disease, stage III (HCC) Stage 3b chronic kidney disease (HCC) Hyperlipidemia, unspecified hyperlipidemia type Expected: 11/16/2023, Expires: 01/16/2024 [facility] Work Phone: Comment on above: Expected: 11/16/2023, Expires: Start: 11-16-2023 End: 01-16-2024 Creatinine [Mass/volume] in Urine collected for unspecified duration CREATININE RANDOM UR Lab Routine Benign hypertension with chronic kidney disease, stage III (HCC) Stage 3b chronic kidney disease (HCC) Hyperlipidemia, unspecified hyperlipidemia type Expected: 11/16/2023, Expires: 01/16/2024 [facility] Work Phone: Comment on above: Expected: 11/16/2023, Expires: Start: 11-16-2023 End: 01-16-2024 Parathyrin.intact [Mass/volume] in Serum or Plasma PTH INTACT BLD Lab Routine Benign hypertension with chronic kidney disease, stage III (HCC) Stage 3b chronic kidney disease (HCC) Hyperlipidemia, unspecified hyperlipidemia type Expected: 11/16/2023, Expires: 01/16/2024 [facility] Work Phone: Comment on above: Expected: 11/16/2023, Expires: Start: 11-16-2023 End: 01-16-2024 Protein [Mass/volume] in Urine PROTEIN RANDOM UR Lab Routine Benign hypertension with chronic kidney disease, stage III (HCC) Stage 3b chronic kidney disease (HCC) Hyperlipidemia, unspecified hyperlipidemia type Expected: 11/16/2023, Expires: 01/16/2024 [facility] Work Phone: Comment on above: Expected: 11/16/2023, Expires: Start: 11-16-2023 End: 01-16-2024 Renal function 2000 panel - Serum or Plasma RENAL FUNCTION PANEL Lab Routine Benign hypertension with chronic kidney disease, stage III (HCC) Stage 3b chronic kidney disease (HCC) Hyperlipidemia, unspecified hyperlipidemia type Expected: 11/16/2023, Expires: 01/16/2024 [facility] Work Phone: Comment on above: Expected: 11/16/2023, Expires: 4 Start: 11-14-2023 End: 11-14-2023 Patient encounter procedure 11/14/2023 5:40 PM EDT [facility] Internal Medicine [address] [place], [place] [id number] [place] [address] [place], [place] [phone] discuss results Internal Medicine Comment on above: discuss results Start: 11-09-2023 End: 02-08-2024 Urinalysis complete panel - Urine URINALYSIS, WITH MICROSCOPIC Lab Routine Stage 3b chronic kidney disease (HCC) Expected: 11/09/2023, Expires: 02/08/2024 [facility] Work Phone: Comment on above: Expected: 11/09/2023, Expires: Start: 11-08-2023 End: 11-08-2023 Patient encounter procedure 11/08/2023 10:30 AM EDT Office Visit Cardiology [address] [place], [place] [phone] Rupesh Gu, [address] [facility] [place] [phone] Return in about 6 months (around 09/12/2023). Cardiology Comment on above: Return in about 6 months (around 09/12/19). Start: 11-03-2023 End: 11-03-2023 Patient encounter procedure 11/03/2023 11:40 AM EDT Office Visit Internal Medicine [address] [place] [address] [place] [address] [place] [address] Annual Medicare Wellness Exam due Internal Medicine Comment on above: Annual Medicare Wellness Exam due Start: 10-30-2023 Influenza vaccination Influenza Vaccine (#1) [facility] Start: 10-24-2023 End: 10-24-2023 Patient encounter procedure 10/24/2023 10:40 AM EDT Office Visit Internal Medicine [address] [place] [address] Bryant Velez APRN.PHLEBOTOMIST [address] [place] [address] Annual Medicare Wellness Exam due Internal Medicine Comment on above: Annual Medicare Wellness Exam due Start: 10-22-2023 ANNUAL PCP TEAM CHRONIC DISEASE VISIT ANNUAL PCP TEAM CHRONIC DISEASE VISIT [facility] Start: 10-22-2023 BP CONTROLLED (<130/80) BP CONTROLLED (<130/80) [facility] Start: 10-22-2023 SHINGRIX VACCINE (1 of 2) SHINGRIX VACCINE (1 of 2) [facility] Comment on above: Postponed from 2001 (Declined at t his time) Start: 10-22-2023 Urine microalbumin profile [facility] Comment on above: Postponed from 06/10/2016 (Declined at t his time) Start: 10-21-2023 End: 10-21-2023 ambulatory 10/21/2023 9:00 AM EDT Results Only [facility] [address] [place] [address] [place] [address] PVI+WATCHMAN [facility] Comment on above: PVI+WATCHMAN Start: 10-17-2023 End: 07-03-2024 Basic metabolic 2000 panel - Serum or Plasma BASIC METABOLIC PANEL Lab Routine Atrial fibrillation, persistent (HCC) Expected: 10/17/2023, Expires: 07/03/2024 [facility] Work Phone: Comment on above: Expected: 10/17/2023, Expires: Start: 10-17-2023 End: 07-03-2024 CBC panel - Blood by Automated count COMPLETE BLOOD COUNT Lab Routine Atrial fibrillation, persistent (HCC) Expected: 10/17/2023, Expires: 07/03/2024 [facility] Comment on above: Expected: 10/17/2023, Expires: Start: 10-17-2023 End: 07-03-2024 TYPE AND SCREEN,30 DAY TYPE AND SCREEN,30 DAY Blood Bank Routine Atrial fibrillation, persistent (HCC) Expected: 10/17/2023, Expires: 07/03/2024 [facility] Comment on above: Expected: 10/17/2023, Expires: Start: 09-12-2023 End: 09-12-2023 Patient encounter procedure 09/12/2023 9:30 AM EDT Office Visit Cardiology [address] [place] [address] Rupesh Gu, DO [address] [facility] [place] [address] Return in about 6 months (around 09/12/2023). Cardiology Comment on above: Return in about 6 months (around 09/12/19 24). Start: 09-09-2023 MG Breast - bilateral Screening [facility] Start: 09-09-2023 Screening mammography of bilateral breasts MM screening mammo BI w/CAD [facility] Start: 08-26-2023 End: 08-26-2023 Patient encounter procedure 08/26/2023 10:20 AM EDT Appointment [facility] Radiology Mammography [id number] [place] [address] Encounter for screening mammogram for breast cancer [Z12.31] [facility] Mammography Comment on above: Encounter for screening mammogram for br east cancer [Z12.31] Start: 08-08-2023 End: 11-07-2023 Basic metabolic 2000 panel - Serum or Plasma BASIC METABOLIC PANEL Lab Routine Hypertension, unspecified type Expected: 08/08/2023, Expires: 11/07/2023 [facility] Work Phone: Comment on above: Expected: 08/08/2023, Expires: Start: 08-08-2023 End: 08-08-2023 Follow-up encounter 08/08/2023 1:40 PM EDT [facility] Internal Medicine [id number] [place] [address] [place] [address] [place] [address] follow up, mulitple concerns, 40 min needed Internal Medicine Comment on above: follow up, mulitple concerns, 40 min nee ded Start: 08-05-2023 End: 08-05-2023 Patient encounter procedure Cardiology Comment on above: Return in about 6 months (around ). *No device* Return i n about 6 months (around 07/30/2023). Start: 07-29-2023 HEMOGLOBIN/HEMATOCRIT HEMOGLOBIN/HEMATOCRIT [facility] Start: 07-29-2023 SERUM CREATININE SERUM CREATININE [facility] Start: 07-28-2023 End: 07-28-2023 Patient encounter procedure 07/28/2023 11:00 AM EDT Office Visit Internal Medicine [address] [place] [address] Stepan Roberts APRN.PHLEBOTOMIST [address] [place] [address] hosp follow Internal Medicine Comment on above: hosp follow Start: 07-27-2023 End: 10-26-2023 Basic metabolic 2000 panel - Serum or Plasma BASIC METABOLIC PNL Lab Routine Paroxysmal atrial fibrillation (HCC) Expected: 07/27/2023 (Approximate), Expires: 10/26/2023 [facility] Work Phone: Comment on above: Expected: 07/27/2023 (Approximate), Expi res: 10/26/2023 Start: 07-27-2023 End: 10-26-2023 CBC W Auto Differential panel - Blood CBC + DIFF Lab Routine Paroxysmal atrial fibrillation (HCC) Expected: 07/27/2023 (Approximate), Expires: 10/26/2023 [facility] Work Phone: Comment on above: Expected: 07/27/2023 (Approximate), Expi res: 10/26/2023 Start: 07-27-2023 End: 10-26-2023 Magnesium [Mass/volume] in Serum or Plasma MAGNESIUM BLD Lab Routine Paroxysmal atrial fibrillation (HCC) Expected: 07/27/2023 (Approximate), Expires: 10/26/2023 [facility] Work Phone: Comment on above: Expected: 07/27/2023 (Approximate), Expi res: 10/26/2023 Start: 07-27-2023 End: 02-27-2024 Radiologic exam chest 2 views XR CHEST 2V FRONTAL/LAT Radiology Routine Paroxysmal atrial fibrillation (HCC) Expected: 07/27/2023 (Approximate), Expires: 02/27/2024 [facility] Work Phone: Comment on above: Expected: 07/27/2023 (Approximate), Expi res: 02/27/2024 Start: 06-13-2023 End: 09-12-2023 Natriuretic peptide.B prohormone N-Terminal [Mass/volume] in Serum or Plasma NT PRO BNP Lab Routine Paroxysmal atrial fibrillation (HCC) Expected: 06/13/2023, Expires: 09/12/2023 [facility] Work Phone: Comment on above: Expected: 06/13/2023, Expires: Start: 05-17-2023 End: 05-17-2023 Patient education based on identified need [facility] Start: 02-28-2023 Advance Directive Discussion Advance Directive Discussion [facility] Start: 02-28-2023 Annual Wellness Visit (Medicare Advantage) Annual Wellness Visit (Medicare Advantage) [facility] Start: 02-28-2023 Behavioral Health Screening Behavioral Health Screening [facility] Start: 02-28-2023 Depression Assessment Depression Assessment [facility] Start: 01-27-2023 End: 03-29-2023 Basic metabolic 2000 panel - Serum or Plasma BASIC METABOLIC PNL Lab Routine Paroxysmal atrial fibrillation (HCC) Hypertension, unspecified type Atherosclerotic peripheral vascular disease with intermittent claudication (HCC) Expected: 01/27/2023, Expires: 03/29/2023 [facility] Work Phone: Comment on above: Expected: 01/27/2023, Expires: 4 Start: 01-27-2023 End: 03-29-2023 CBC W Auto Differential panel - Blood CBC + DIFF Lab Routine Paroxysmal atrial fibrillation (HCC) Hypertension, unspecified type Atherosclerotic peripheral vascular disease with intermittent claudication (HCC) Expected: 01/27/2023, Expires: 03/29/2023 [facility] Work Phone: Comment on above: Expected: 01/27/2023, Expires: Start: 01-27-2023 End: 03-29-2023 Magnesium [Mass/volume] in Serum or Plasma MAGNESIUM BLD Lab Routine Paroxysmal atrial fibrillation (HCC) Hypertension, unspecified type Atherosclerotic peripheral vascular disease with intermittent claudication (HCC) Expected: 01/27/2023, Expires: 03/29/2023 [facility] Work Phone: Comment on above: Expected: 01/27/2023, Expires: 4 Start: 01-26-2023 BP CONTROLLED (<130/80) BP CONTROLLED (<130/80) [facility] Start: 01-21-2023 End: 03-23-2023 Lipid 1996 panel - Serum or Plasma LIPID PANEL BASIC Lab Routine 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 Expected: 01/21/2023, Expires: 03/23/2023 [facility] Work Phone: Comment on above: Expected: 01/21/2023, Expires: 4 Start: 11-22-2022 End: 07-29-2023 OUTSIDE VENDOR CARDIAC OUTPATIENT EXTENDED RHYTHM RECORDING (WITHOUT TELEMETRY) OUTSIDE VENDOR CARDIAC OUTPATIENT EXTENDED RHYTHM RECORDING (WITHOUT TELEMETRY) Holter Routine Paroxysmal atrial fibrillation (HCC) Hypertension, unspecified type Atherosclerotic peripheral vascular disease with intermittent claudication (HCC) Expected: 11/22/2022, Expires: 07/29/2023 [facility] Work Phone: Comment on above: Expected: 11/22/2022, Expires: 4 Start: 10-29-2022 Influenza vaccination [facility] Start: 10-26-2022 HEMOGLOBIN/HEMATOCRIT HEMOGLOBIN/HEMATOCRIT [facility] Start: 10-26-2022 SERUM CREATININE SERUM CREATININE [facility] Start: 10-12-2022 ANNUAL PCP TEAM CHRONIC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 Primary Atherosclerosis of [place] arteries of the extremities with intermittent claudication Atrial fibrillation, unspecified type (HCC) [facility]* Diagnosis Paroxysmal atrial fibrillation (HCC)- Primary Atrial fibrillation 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 Hypertension, unspecified type Mixed hyperlipidemia Non-rheumatic mitral regurgitation Mitral valve disorders PVD (peripheral vascular disease) (HCC) Peripheral vascular disease, unspecified Atrial fibrillation, unspecified type (HCC) [facility]* Diagnosis Stage 3b chronic kidney disease (HCC)- Primary Atrial fibrillation, unspecified type (HCC) [facility] this encounter [facility]* Diagnosis Abdominal wall bulge- Primary Abdominal or pelvic swelling, mass or lump, unspecified site Atrial fibrillation, unspecified type (HCC) [facility]* Diagnosis Medicare annual wellness visit, subsequent- Primary Routine general medical examination at a health care facility Advanced directives, counseling/discussion Other specified counseling Screening for depression Encounter for screening examination for other mental health and behavioral disorders Mixed hyperlipidemia Asymptomatic postmenopausal status Hypertension, unspecified type History of ST elevation myocardial infarction (STEMI) Old myocardial infarction Paroxysmal atrial fibrillation (HCC) Atrial fibrillation CKD (chronic kidney disease) stage 4, GFR 15-29 ml/min (HCC) Chronic kidney disease, Stage IV (severe) 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 Secondary renal hyperparathyroidism (HCC) Secondary hyperparathyroidism (of renal origin) Abdominal wall bulge Abdominal or pelvic swelling, mass or lump, unspecified site Gait instability Abnormality of gait Atrial fibrillation, unspecified type (HCC) [facility]* Diagnosis Paroxysmal atrial fibrillation (HCC)- Primary Atrial fibrillation Atrial fibrillation, unspecified type (HCC) [facility]* Diagnosis Benign hypertension with chronic kidney disease, stage III (HCC)- Primary 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 through stage IV, or unspecified Stage 3b chronic kidney disease (HCC) Hyperlipidemia, unspecified hyperlipidemia type Vitamin D deficiency Unspecified vitamin D deficiency Atrial fibrillation, unspecified type (HCC) [facility]* Diagnosis Abdominal wall bulge Abdominal or pelvic swelling, mass or lump, unspecified site Atrial fibrillation, unspecified type (HCC) [facility] Diagnosis Other specified abdominal hernia without obstruction or gangrene- Primary Atrial fibrillation, unspecified type (HCC) [facility]* Diagnosis Benign hypertension with chronic kidney disease, stage III (HCC)- Primary 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 through stage IV, or unspecified Atrial fibrillation, unspecified type (HCC) [facility]* Diagnosis Benign hypertension with chronic kidney disease, stage III (HCC)- Primary 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 through stage IV, or unspecified Atrial fibrillation, unspecified type (HCC) [facility] in [facility] Pain in [facility] Right inguinal hernia- Primary Inguinal hernia without mention of obstruction or gangrene, unilateral or unspecified, (not specified as recurrent) [facility] Diagnosis Right inguinal hernia- Primary Inguinal hernia without mention of obstruction or gangrene, unilateral or unspecified, (not specified as recurrent) Unilateral inguinal hernia without obstruction or gangrene, recurrence not specified [facility] Diagnosis Encounter for screening mammogram for breast cancer Unilateral inguinal hernia without obstruction or gangrene, recurrence not specified [facility] this [facility] Narrative History of Present Illness not supported for this document type No History of Present Illness [facility] Pending sale to [facility] Work Phone: Patient problem outcome Narrative Includes: Evaluations & Outcomes for active Goals No Outcomes [facility] Pending sale to [facility] Work Phone: Reason for referral (narrative)* Outpatient Procedure (Routine) - Closed Specialty Diagnoses / Procedures Referred By Contac t Referred To Contact [facility] [place] Diagnoses Paroxysmal atrial fibrillation (HCC) Procedures ECG COMPLETE ECG ROUTINE ECG W/LEAST 12 LDS W/I&R Rupesh Gu DO [address] [facility] [place] [address] [facility] [address] [address] Referral ID Status Reason Start Date Expiration Date V isits Requested Visits Authorized [id number] Closed Auto-Generate d Referral 08/11/2021 08/11/2022 1 1 [facility] for referral (narrative)* Outpatient Procedure (Routine) - Authorized Specialty Diagnoses / Procedures Referred By Contac t Referred To Contact [facility] [place] Diagnoses PVD (peripheral vascular disease) (HCC) Procedures PVR ANK PRESS [facility] VAS LAB NON-INVAS PHYSIOLOGIC STD EXTREMITY ART 2 LEVEL Renae German, TELEX OPERATOR.PHLEBOTOMIST [address] [place] [address] [facility] [address] [place] [address] Referral ID Status Reason Start Date Expiration Date Visits Requested Visits Authorized [id number] Authorized Auto-Generat ed Referral 10/30/2021 10/30/2022 1 1 [facility] for referral (narrative)* Outpatient Procedure (Routine) - Pending Review Specialty Diagnoses / Procedures Referred By Contac t [facility] Diagnoses Paroxysmal atrial fibrillation (HCC) History of ST elevation myocardial infarction (STEMI) PAF (paroxysmal atrial fibrillation) (HCC) Procedures ECG COMPLETE ECG ROUTINE ECG W/LEAST 12 LDS W/I&[place] [address] [place] [address] [facility] [place] [address] [place] [address] Referral ID Status Reason Start Date Expiration Date Visits Requested Visits Authorized [id number] Pending Review Auto-Generat ed Referral 01/26/2023 1 1 [facility] for referral (narrative)* Diagnostic Procedure Only (Routine) - Pending Review Specialty Diagnoses / Procedures [facility] To [facility] Diagnoses Encounter for screening mammogram for breast cancer Procedures ESTHER SCREENING SCREENING MAMMOGRAPHY BI 2-VIEW BREAST INC [place]terroso [place] [id number] [place] [address] [facility] [address] [place] [phone] Referral ID Status Reason Start Date Expiration Date Visits Requested Visits Authorized [id number] Pending Review Auto-Generat ed Referral 03/03/2022 04/02/2023 1 1 [facility] for referral (narrative)* Outpatient Procedure (Routine) - Pending Review Specialty Diagnoses / Procedures Referred By Contac t Referred To Contact [facility] Diagnoses Paroxysmal atrial fibrillation (HCC) Hypertension, unspecified type Atherosclerotic peripheral vascular disease with intermittent claudication (HCC) Procedures ECG COMPLETE ECG ROUTINE ECG W/LEAST 12 LDS W/[place] [address] [place] [address] [place] [phone] Referral ID Status Reason Start Date Expiration Date Visits Requested Visits Authorized [id number] Pending Review Auto-Generat ed Referral 07/28/2022 07/28/2023 1 1 [facility] for referral (narrative)* Outpatient Procedure (Routine) - Authorized Specialty Diagnoses / Procedures Referred By Contac t Referred To Contact [facility] Diagnoses PVD (peripheral vascular disease) (HCC) Aortoiliac occlusive disease (HCC) Carotid artery stenosis, asymptomatic, bilateral Procedures US ABD AORTA COMPLETE VAS LAB DUP-SCAN AORTA IVC ILIAC VASCL/BPGS COMPLETE Chuck Tucker MD [address] [place] [address] [place] [phone] Referral ID Status Reason Start Date Expiration Date Visits Requested Visits Authorized [id number] Authorized Auto-Generat ed Referral 11/15/2022 11/15/2023 1 1 * Outpatient Procedure (Routine) - Authorized Specialty Diagnoses / Procedures [facility] Diagnoses PVD (peripheral vascular disease) (HCC) Aortoiliac occlusive disease (HCC) Carotid artery stenosis, asymptomatic, bilateral Procedures PVR ANK PRESS [facility] VAS LAB NON-INVAS PHYSIOLOGIC STD EXTREMITY ART 2 LEVEL Chuck Tucker MD [address] [place], [place] [address]d [place] [id number] [address] Referral ID Status Reason Start Date Expiration Date Visits Requested Visits Authorized [id number] Authorized Auto-Generat ed Referral 11/15/2022 11/15/2023 1 1 * Outpatient Procedure (Routine) - Authorized Specialty Diagnoses / Procedures [facility] To Contact [facility] Diagnoses PVD (peripheral vascular disease) (HCC) Aortoiliac occlusive disease (HCC) Carotid artery stenosis, asymptomatic, bilateral Procedures US CAROTID ARTERIES [facility] VAS LAB DUPLEX SCAN EXTRACRANIAL ART COMPL BI STUDY Chuck Tucker MD [address] [place] [address] [facility] [address] [place] [address] Referral ID Status Reason Start Date Expiration Date Visits Requested Visits Authorized [id number] Authorized Auto-Generat ed Referral 11/15/2022 11/15/2023 1 1 [facility] for referral (narrative)* Outpatient Procedure (Routine) - Pending Review Specialty Diagnoses / Procedures Referred By Manuel t Referred To Contact [facility] [place] Diagnoses Paroxysmal atrial fibrillation (HCC) Procedures ECG COMPLETE ECG ROUTINE ECG W/LEAST 12 LDS W/I&[place] [address] [place] [address] [address] Referral ID Status Reason Start Date Expiration Date Visits Requested Visits Authorized [id number] Pending Review Auto-Generat ed Referral 01/28/2023 01/28/2024 1 1 [facility] for referral (narrative)* Diagnostic Procedure Only (Routine) - Pending Review Specialty Diagnoses / Procedures Referred By Contac t Referred To Contact [facility] Diagnoses Encounter for screening mammogram for breast cancer Procedures ESTHER SCREENING SCREENING MAMMOGRAPHY BI 2-VIEW [place] [address] [place] [address] [facility] [address] [place] [phone] Referral ID Status Reason Start Date Expiration Date Visits Requested Visits Authorized [id number] Pending Review Auto-Generat ed Referral 02/02/2023 03/03/2024 1 1 [facility] for referral (narrative)No Reason for Referral Record[facility] Work Phone: [facility] for referral (narrative)* Outpatient Procedure (Routine) - Pending Review Specialty Diagnoses / Procedures Referred By Manuel preston Referred To [facility] Diagnoses Atrial fibrillation, persistent (HCC) Procedures ECHO TRANSESOPHAGEAL ECHO TRANSESOPHAG R-T 2D W/PRB IMG ACQUISJ I&R Pura, Rogelio Millard MD [id number] [place] [address] Referral ID Status Reason Start Date Expiration Date Visits Requested Visits Authorized [id number] Pending Review Auto-Generat ed Referral 07/04/2023 07/03/2024 1 1 [facility] for referral (narrative)* Diagnostic Procedure Only (Routine) - New Request Specialty Diagnoses / Procedures Referred By Manuel preston Referred To Contact [facility] Diagnoses Abdominal wall bulge Procedures US HIP RIGHT US COMPL JOINT R-T W/IMAGE DOCUMENTATION Kayla Monterroso MD [id number] [place] [address] [facility]95 Referral ID Status Reason Start Date Expiration Date Visits Requested Visits Authorized [id number] New Request Auto-Generat ed Referral 11/10/2023 12/09/2024 1 1 T [facility] for referral (narrative)* Diagnostic Procedure Only (Routine) - New Request Specialty Diagnoses / Procedures Referred By Manuel preston Referred To Contact [facility] Diagnoses Encounter for screening mammogram for breast cancer Procedures ESTHER SCREENING W JEFF SCREENING DIGITAL BREAST TOMOSYNTHESIS BI SCREENING MAMMOGRAPHY BI 2-VIEW BREAST INC CAD [place]la Monterroso [place] [id number] [place] [address] [facility] [address] [place] [phone] Referral ID Status Reason Start Date Expiration Date Visits Requested Visits Authorized [id number] New Request Auto-Generat ed Referral 01/04/2024 02/02/2025 1 1 EDITO [facility] for visit Narrative* Diagnostic Procedure Only (Routine) - Closed Specialty Diagnoses / Procedures Referred By Contac t Referred To Contact [facility] Diagnoses Abdominal wall bulge Procedures US ABDOMEN LTD US ABDOMINAL REAL TIME W/[place] [address] [place] [address] [place] [address] Referral ID Status Reason Start Date Expiration Date V isits Requested Visits Authorized [id number] Closed Auto-Generate d Referral 11/03/2023 02/28/2024 1 1 [facility] Narrative - Reported Review of Systems not supported for this document type No Review of Systems [facility]: Summary Purpose Family History No Family History Records FoundNo Family History Records FoundNo Family History Records FoundNo Family History Records Found Includes: Family History in patient's chart No Family History RecordedNo Family History Records FoundNo Family History Records FoundNo Family History Records FoundNo Family History Records Found Advance Directives Documents on File Type Date Recorded Patient Under Presser Expl anation Advance Directive(s) 03/28/2019 10:10 AM Advance Directive(s) 07/20/2018 10:43 AM Advance Directive(s) 07/19/2018 7:10 AM Advance Directive(s) 07/14/2018 11:46 AM Advance Directive(s) 06/09/2017 12:41 PM Documents on File Type Date Recorded Patient Under Presser Expl anation Advance Directive(s) 03/28/2019 10:10 AM Advance Directive(s) 07/20/2018 10:43 AM Advance Directive(s) 07/19/2018 7:10 AM Advance Directive(s) 07/14/2018 11:46 AM Advance Directive(s) 06/09/2017 12:41 PM Documents on File Type Date Recorded Patient Under Presser Expl anation Advance Directive(s) 07/20/2018 10:43 AM Documents on File Type Date Recorded Patient Under Presser Expl anation Advance Directive(s) 07/20/2018 10:43 AM Latest Code Status on File Code Status Date Activated Date Inactivated Comments Full Code 05/17/2023 8:05 PM Code Status History Code Status Date Activated Date Inactivated Comments Full Code 08/19/2015 2:04 AM 08/23/2015 3:05 PM Advance Directive Response Recorded Date/ Time Advance Directives No August 16 12:38pm Reason for Referral Specialty Diagnoses / Procedures Referred By Contac t Referred To Contact Diagnoses Tension-type headache, not intractable, unspecified chronicity pattern Tinnitus, unspecified laterality Procedures CONSULT TO HEADACHE CLINIC OFFICE/OUTPATIENT [facility] 60-[place] [address] [place] [address] Referral ID Status Reason Start Date Expiration Date Visits Requested Visits Authorized [id number] Pending Review PCP Requested Referral 10/12/2021 10/12/2022 1 1 Specialty Diagnoses / Procedures Referred By Contac t Referred To Contact Ent - Otolaryngology Diagnoses Tension-type headache, not intractable, unspecified chronicity pattern Tinnitus, unspecified laterality Procedures CONSULT TO ENT OFFICE/OUTPATIENT [facility] 60-[place] [address] [place] [address] Referral ID Status Reason Start Date Expiration Date Visits Requested Visits Authorized [id number] Pending Review PCP Requested Referral 10/12/2021 10/12/2022 1 1 Specialty Diagnoses / Procedures Referred By Contac t Referred To Contact CT IMAGING Diagnoses Pulsatile tinnitus, left ear Lightheadedness Procedures CT TEMP BONES WO IVCON CT ORBIT SELLA/POST FOSSA/EAR W/O CONTRAST MATRL Macrina Vaughan PA-C [address] [place] [address] Ct Imaging Referral ID Status Reason Start Date Expiration Date Visits Requested Visits Authorized [id number] Authorized Auto-Generat ed Referral 11/11/2021 12/11/2022 1 1 Specialty Diagnoses / Procedures Referred By Contac t Referred To Contact [facility] Procedures CARDIOVASCULAR MEDICINE OP FOLLOW UP APPT ORDER Rogelio Stokes MD [address] [place] [address] [facility] [place] [address] [place] [address] Referral ID Status Reason Start Date Expiration Date Visits Requested Visits Authorized [id number] Ref Not Required PCP Requested Referral 06/22/2023 06/21/2024 1 1 Specialty Diagnoses / Procedures Referred By Contac t Referred To Contact [facility] Diagnoses Gait instability Procedures CONSULT TO PHYSICAL THERAPY PHYSICAL THERAPY EVALUATION HIGH COMPLEX 45 MINS Kayla Monterroso MD [address] [place] [address] [facility] [address] [address] Referral ID Status Reason Start Date Expiration Date Visits Requested Visits Authorized [id number] Pending Review Auto-Generat ed Referral 11/03/2023 11/02/2024 1 1 Specialty Diagnoses / Procedures Referred By Contac t Referred To Contact [facility] Diagnoses Abdominal wall bulge Procedures US PELVIS LTD US PELVIC NONOBSTETRIC IMAGE DCMTN LIMITED/F/U Kayla Monterroso MD [address] [place] [address] [place] [address] Referral ID Status Reason Start Date Expiration Date Visits Requested Visits Authorized [id number] Authorized Auto-Generat ed Referral 11/03/2023 02/28/2024 1 1 Specialty Diagnoses / Procedures Referred By Contac t Referred To Contact [facility] Diagnoses Abdominal wall bulge Procedures US ABDOMEN LTD US ABDOMINAL REAL TIME W/IMAGE LIMITED Kayla Monterroso MD [address] [place] [address] [place] [address] Referral ID Status Reason Start Date Expiration Date Visits Requested Visits Authorized [id number] Authorized Auto-Generat ed Referral 11/03/2023 02/28/2024 1 1 Specialty Diagnoses / Procedures Referred By Contac t Referred To Contact XR IMAGING Diagnoses Asymptomatic postmenopausal status Procedures DXA-AXIAL SKELETON WITH VFA DXA BONE DENSITY STUDY AXIAL SKELETON Kayla Monterroso MD [id number] [place] [address] [place] [address] Referral ID Status Reason Start Date Expiration Date Visits Requested Visits Authorized [id number] Pending Review Auto-Generat ed Referral 11/03/2023 12/02/2024 1 1 Specialty Diagnoses / Procedures Referred By Contac t Referred To Contact General Surgery Diagnoses Other specified abdominal hernia without obstruction or gangrene Procedures CONSULT TO GENERAL SURGERY OFFICE/OUTPATIENT [facility] [place] [address] [place] [address] Referral ID Status Reason Start Date Expiration Date Visits Requested Visits Authorized [id number] Authorized PCP Requested Referral 11/24/2023 11/23/2024 1 1 Physical Exam Physical Exam not supported for this document type No Physical Exam Recorded Chief Complaint and Reason for Visit Chief Complaint z12.31 Additional Source Comments INFORMATION SOURCE (unrecogn ized section and content) DATE CREATED AUTHOR 08/24/2017 [facility] DATE CREATED AUTHOR AUTHOR'S ORGANIZ ATION 01/16/2022 [facility] DATE CREATED AUTHOR AUTHOR'S ORGANIZ ATION 02/26/2022 [facility] DATE CREATED AUTHOR AUTHOR'S ORGANIZ ATION 05/17/2023 [facility] Pending [facility] to [facility] DATE CREATED AUTHOR AUTHOR'S ORGANIZ ATION 05/21/2023 [facility] DATE CREATED AUTHOR AUTHOR'S ORGANIZ ATION 09/15/2023 [facility] DATE CREATED AUTHOR AUTHOR'S ORGANIZ ATION 11/23/2023 [facility] DATE CREATED AUTHOR AUTHOR'S ORGANIZ ATION 01/22/2024 [facility] Source Comments (unrecognize d section and content) In the event this informatio n is protected by the Federal Confidentiality of Alcohol and Drug Abuse Patient Records regulations: The Federal rules restrict any use of the information to criminally investigate or prosecute any alcohol or drug abuse patient.[facility] the event this information is protected by the Federal Confidentiality of Alcohol and Drug Abuse Patient Records regulations: The Federal rules restrict any use of the information to criminally investigate or prosecute any alcohol or drug abuse patient.[facility] the event this information is protected by the Federal Confidentiality of Alcohol and Drug Abuse Patient Records regulations: The Federal rules restrict any use of the information to criminally investigate or prosecute any alcohol or drug abuse patient.[facility] the event this information is protected by the Federal Confidentiality of Alcohol and Drug Abuse Patient Records regulations: The Federal rules restrict any use of the information to criminally investigate or prosecute any alcohol or drug abuse patient.[facility] the event this information is protected by the Federal Confidentiality of Alcohol and Drug Abuse Patient Records regulations: The Federal rules restrict any use of the information to criminally investigate or prosecute any alcohol or drug abuse patient.[facility] the event this information is protected by the Federal Confidentiality of Alcohol and Drug Abuse Patient Records regulations: The Federal rules restrict any use of the information to criminally investigate or prosecute any alcohol or drug abuse patient.[facility] the event this information is protected by the Federal Confidentiality of Alcohol and Drug Abuse Patient Records regulations: The Federal rules restrict any use of the information to criminally investigate or prosecute any alcohol or drug abuse patient.[facility] Hospital[facility] the event this information is protected by the Federal Confidentiality of Alcohol and Drug Abuse Patient Records regulations: The Federal rules restrict any use of the information to criminally investigate or prosecute any alcohol or drug abuse patient.[facility] Hospital[facility] the event this information is protected by the Federal Confidentiality of Alcohol and Drug Abuse Patient Records regulations: The Federal rules restrict any use of the information to criminally investigate or prosecute any alcohol or drug abuse patient.[facility] Hospital[facility] the event this information is protected by the Federal Confidentiality of Alcohol and Drug Abuse Patient Records regulations: The Federal rules restrict any use of the information to criminally investigate or prosecute any alcohol or drug abuse patient.[facility] Hospital[facility] the event this information is protected by the Federal Confidentiality of Alcohol and Drug Abuse Patient Records regulations: The Federal rules restrict any use of the information to criminally investigate or prosecute any alcohol or drug abuse patient.[facility] Hospital[facility] the event this information is protected by the Federal Confidentiality of Alcohol and Drug Abuse Patient Records regulations: The Federal rules restrict any use of the information to criminally investigate or prosecute any alcohol or drug abuse patient.[facility] Hospital[facility] the event this information is protected by the Federal Confidentiality of Alcohol and Drug Abuse Patient Records regulations: The Federal rules restrict any use of the information to criminally investigate or prosecute any alcohol or drug abuse patient.[facility] Hospital[facility] the event this information is protected by the Federal Confidentiality of Alcohol and Drug Abuse Patient Records regulations: The Federal rules restrict any use of the information to criminally investigate or prosecute any alcohol or drug abuse patient.[facility] Hospital[facility] the event this information is protected by the Federal Confidentiality of Alcohol and Drug Abuse Patient Records regulations: The Federal rules restrict any use of the information to criminally investigate or prosecute any alcohol or drug abuse patient.[facility] HospitalIn the event this information is protected by the Federal Confidentiality of Alcohol and Drug Abuse Patient Records regulations: The Federal rules restrict any use of the information to criminally investigate or prosecute any alcohol or drug abuse patient.[facility] HospitalIn the event this information is protected by the Federal Confidentiality of Alcohol and Drug Abuse Patient Records regulations: The Federal rules restrict any use of the information to criminally investigate or prosecute any alcohol or drug abuse patient.[facility] HospitalIn the event this information is protected by the Federal Confidentiality of Alcohol and Drug Abuse Patient Records regulations: The Federal rules restrict any use of the information to criminally investigate or prosecute any alcohol or drug abuse patient.[facility] HospitalIn the event this information is protected by the Federal Confidentiality of Alcohol and Drug Abuse Patient Records regulations: The Federal rules restrict any use of the information to criminally investigate or prosecute any alcohol or drug abuse patient.[facility] HospitalIn the event this information is protected by the Federal Confidentiality of Alcohol and Drug Abuse Patient Records regulations: The Federal rules restrict any use of the information to criminally investigate or prosecute any alcohol or drug abuse patient.[facility] HospitalIn the event this information is protected by the Federal Confidentiality of Alcohol and Drug Abuse Patient Records regulations: The Federal rules restrict any use of the information to criminally investigate or prosecute any alcohol or drug abuse patient.[facility] HospitalIn the event this information is protected by the Federal Confidentiality of Alcohol and Drug Abuse Patient Records regulations: The Federal rules restrict any use of the information to criminally investigate or prosecute any alcohol or drug abuse patient.[facility] HospitalIn the event this information is protected by the Federal Confidentiality of Alcohol and Drug Abuse Patient Records regulations: The Federal rules restrict any use of the information to criminally investigate or prosecute any alcohol or drug abuse patient.[facility] HospitalIn the event this information is protected by the Federal Confidentiality of Alcohol and Drug Abuse Patient Records regulations: The Federal rules restrict any use of the information to criminally investigate or prosecute any alcohol or drug abuse patient.[facility] HospitalIn the event this information is protected by the Federal Confidentiality of Alcohol and Drug Abuse Patient Records regulations: The Federal rules restrict any use of the information to criminally investigate or prosecute any alcohol or drug abuse patient.[facility] HospitalIn the event this information is protected by the Federal Confidentiality of Alcohol and Drug Abuse Patient Records regulations: The Federal rules restrict any use of the information to criminally investigate or prosecute any alcohol or drug abuse patient.[facility] HospitalIn the event this information is protected by the Federal Confidentiality of Alcohol and Drug Abuse Patient Records regulations: The Federal rules restrict any use of the information to criminally investigate or prosecute any alcohol or drug abuse patient.[facility] HospitalIn the event this information is protected by the Federal Confidentiality of Alcohol and Drug Abuse Patient Records regulations: The Federal rules restrict any use of the information to criminally investigate or prosecute any alcohol or drug abuse patient.[facility] HospitalIn the event this information is protected by the Federal Confidentiality of Alcohol and Drug Abuse Patient Records regulations: The Federal rules restrict any use of the information to criminally investigate or prosecute any alcohol or drug abuse patient.[facility] HospitalIn the event this information is protected by the Federal Confidentiality of Alcohol and Drug Abuse Patient Records regulations: The Federal rules restrict any use of the information to criminally investigate or prosecute any alcohol or drug abuse patient.[facility] HospitalIn the event this information is protected by the Federal Confidentiality of Alcohol and Drug Abuse Patient Records regulations: The Federal rules restrict any use of the information to criminally investigate or prosecute any alcohol or drug abuse patient.[facility] HospitalIn the event this information is protected by the Federal Confidentiality of Alcohol and Drug Abuse Patient Records regulations: The Federal rules restrict any use of the information to criminally investigate or prosecute any alcohol or drug abuse patient.[facility] HospitalIn the event this information is protected by the Federal Confidentiality of Alcohol and Drug Abuse Patient Records regulations: The Federal rules restrict any use of the information to criminally investigate or prosecute any alcohol or drug abuse patient.[facility] HospitalIn the event this information is protected by the Federal Confidentiality of Alcohol and Drug Abuse Patient Records regulations: The Federal rules restrict any use of the information to criminally investigate or prosecute any alcohol or drug abuse patient.[facility] HospitalIn the event this information is protected by the Federal Confidentiality of Alcohol and Drug Abuse Patient Records regulations: The Federal rules restrict any use of the information to criminally investigate or prosecute any alcohol or drug abuse patient.[facility] HospitalIn the event this information is protected by the Federal Confidentiality of Alcohol and Drug Abuse Patient Records regulations: The Federal rules restrict any use of the information to criminally investigate or prosecute any alcohol or drug abuse patient.[facility] HospitalIn the event this information is protected by the Federal Confidentiality of Alcohol and Drug Abuse Patient Records regulations: The Federal rules restrict any use of the information to criminally investigate or prosecute any alcohol or drug abuse patient.[facility] HospitalIn the event this information is protected by the Federal Confidentiality of Alcohol and Drug Abuse Patient Records regulations: The Federal rules restrict any use of the information to criminally investigate or prosecute any alcohol or drug abuse patient.[facility] HospitalIn the event this information is protected by the Federal Confidentiality of Alcohol and Drug Abuse Patient Records regulations: The Federal rules restrict any use of the information to criminally investigate or prosecute any alcohol or drug abuse patient.[facility] HospitalIn the event this information is protected by the Federal Confidentiality of Alcohol and Drug Abuse Patient Records regulations: The Federal rules restrict any use of the information to criminally investigate or prosecute any alcohol or drug abuse patient.[facility] HospitalIn the event this information is protected by the Federal Confidentiality of Alcohol and Drug Abuse Patient Records regulations: The Federal rules restrict any use of the information to criminally investigate or prosecute any alcohol or drug abuse patient.[facility] HospitalIn the event this information is protected by the Federal Confidentiality of Alcohol and Drug Abuse Patient Records regulations: The Federal rules restrict any use of the information to criminally investigate or prosecute any alcohol or drug abuse patient.[facility] HospitalIn the event this information is protected by the Federal Confidentiality of Alcohol and Drug Abuse Patient Records regulations: The Federal rules restrict any use of the information to criminally investigate or prosecute any alcohol or drug abuse patient.[facility] HospitalIn the event this information is protected by the Federal Confidentiality of Alcohol and Drug Abuse Patient Records regulations: The Federal rules restrict any use of the information to criminally investigate or prosecute any alcohol or drug abuse patient.[facility] HospitalIn the event this information is protected by the Federal Confidentiality of Alcohol and Drug Abuse Patient Records regulations: The Federal rules restrict any use of the information to criminally investigate or prosecute any alcohol or drug abuse patient.[facility] HospitalIn the event this information is protected by the Federal Confidentiality of Alcohol and Drug Abuse Patient Records regulations: The Federal rules restrict any use of the information to criminally investigate or prosecute any alcohol or drug abuse patient.[facility] HospitalIn the event this information is protected by the Federal Confidentiality of Alcohol and Drug Abuse Patient Records regulations: The Federal rules restrict any use of the information to criminally investigate or prosecute any alcohol or drug abuse patient.[facility]In the event this information is protected by the Federal Confidentiality of Alcohol and Drug Abuse Patient Records regulations: The Federal rules restrict any use of the information to criminally investigate or prosecute any alcohol or drug abuse patient.[facility] HospitalIn the event this information is protected by the Federal Confidentiality of Alcohol and Drug Abuse Patient Records regulations: The Federal rules restrict any use of the information to criminally investigate or prosecute any alcohol or drug abuse patient.[facility] HospitalIn the event this information is protected by the Federal Confidentiality of Alcohol and Drug Abuse Patient Records regulations: The Federal rules restrict any use of the information to criminally investigate or prosecute any alcohol or drug abuse patient.[facility] HospitalIn the event this information is protected by the Federal Confidentiality of Alcohol and Drug Abuse Patient Records regulations: The Federal rules restrict any use of the information to criminally investigate or prosecute any alcohol or drug abuse patient.[facility] HospitalIn the event this information is protected by the Federal Confidentiality of Alcohol and Drug Abuse Patient Records regulations: The Federal rules restrict any use of the information to criminally investigate or prosecute any alcohol or drug abuse patient.[facility] HospitalIn the event this information is protected by the Federal Confidentiality of Alcohol and Drug Abuse Patient Records regulations: The Federal rules restrict any use of the information to criminally investigate or prosecute any alcohol or drug abuse patient.[facility] HospitalIn the event this information is protected by the Federal Confidentiality of Alcohol and Drug Abuse Patient Records regulations: The Federal rules restrict any use of the information to criminally investigate or prosecute any alcohol or drug abuse patient.[facility] HospitalIn the event this information is protected by the Federal Confidentiality of Alcohol and Drug Abuse Patient Records regulations: The Federal rules restrict any use of the information to criminally investigate or prosecute any alcohol or drug abuse patient.[facility] HospitalIn the event this information is protected by the Federal Confidentiality of Alcohol and Drug Abuse Patient Records regulations: The Federal rules restrict any use of the information to criminally investigate or prosecute any alcohol or drug abuse patient.[facility] HospitalIn the event this information is protected by the Federal Confidentiality of Alcohol and Drug Abuse Patient Records regulations: The Federal rules restrict any use of the information to criminally investigate or prosecute any alcohol or drug abuse patient.[facility] HospitalIn the event this information is protected by the Federal Confidentiality of Alcohol and Drug Abuse Patient Records regulations: The Federal rules restrict any use of the information to criminally investigate or prosecute any alcohol or drug abuse patient.[facility] HospitalIn the event this information is protected by the Federal Confidentiality of Alcohol and Drug Abuse Patient Records regulations: The Federal rules restrict any use of the information to criminally investigate or prosecute any alcohol or drug abuse patient.[facility] HospitalIn the event this information is protected by the Federal Confidentiality of Alcohol and Drug Abuse Patient Records regulations: The Federal rules restrict any use of the information to criminally investigate or prosecute any alcohol or drug abuse patient.[facility] HospitalIn the event this information is protected by the Federal Confidentiality of Alcohol and Drug Abuse Patient Records regulations: The Federal rules restrict any use of the information to criminally investigate or prosecute any alcohol or drug abuse patient.[facility] HospitalIn the event this information is protected by the Federal Confidentiality of Alcohol and Drug Abuse Patient Records regulations: The Federal rules restrict any use of the information to criminally investigate or prosecute any alcohol or drug abuse patient.[facility] HospitalIn the event this information is protected by the Federal Confidentiality of Alcohol and Drug Abuse Patient Records regulations: The Federal rules restrict any use of the information to criminally investigate or prosecute any alcohol or drug abuse patient.[facility] HospitalIn the event this information is protected by the Federal Confidentiality of Alcohol and Drug Abuse Patient Records regulations: The Federal rules restrict any use of the information to criminally investigate or prosecute any alcohol or drug abuse patient.[facility] HospitalIn the event this information is protected by the Federal Confidentiality of Alcohol and Drug Abuse Patient Records regulations: The Federal rules restrict any use of the information to criminally investigate or prosecute any alcohol or drug abuse patient.[facility] HospitalIn the event this information is protected by the Federal Confidentiality of Alcohol and Drug Abuse Patient Records regulations: The Federal rules restrict any use of the information to criminally investigate or prosecute any alcohol or drug abuse patient.[facility] HospitalIn the event this information is protected by the Federal Confidentiality of Alcohol and Drug Abuse Patient Records regulations: The Federal rules restrict any use of the information to criminally investigate or prosecute any alcohol or drug abuse patient.[facility] HospitalIn the event this information is protected by the Federal Confidentiality of Alcohol and Drug Abuse Patient Records regulations: The Federal rules restrict any use of the information to criminally investigate or prosecute any alcohol or drug abuse patient.[facility] HospitalIn the event this information is protected by the Federal Confidentiality of Alcohol and Drug Abuse Patient Records regulations: The Federal rules restrict any use of the information to criminally investigate or prosecute any alcohol or drug abuse patient.[facility] Reason for Visit (unrecogniz ed section [...] around. Specialty Diagnoses / Procedures Referred By Contac t Referred To Contact Ent - Otolaryngology Diagnoses Tension-type headache, not intractable, unspecified chronicity pattern Tinnitus, unspecified laterality Procedures CONSULT TO ENT OFFICE/OUTPATIENT NEW HIGH MDM 60-[place] [address] [place] [address] Referral ID Status Reason Start Date Expiration Date Visits Requested Visits Authorized [id number] Pending Review PCP Requested Referral 10/12/2021 10/12/2022 1 1 Reason Comments Follow Up Virtual Reason Comments Follow Up Reason Onset Date Comments [facility] Navigation Outreach 12/17/2021 Spouse of [facility] outreach pt Reason Comments F/U 6 Month Reason Onset Date Comments Refill Request 05/26/2022 Reason Comments Follow Up Reason Comments CPE (Medicare) Reason Comments Established Patient Follow Up Reason Onset Date Comments [facility] Navigation Outreach 03/31/2023 [place] [facility] Outreach Reason Comments Chest Pain Sharp stabbing right sided chest pains starting 0300. Took 2 325mg asa when pain started. 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 Given 3 baby asa in office at 1122 and was given one nitro at 1129 with some improvement. Denies any n/v, slightly sob. Specialty Diagnoses / Procedures Referred By Manuel preston Referred To Contact Diagnoses Right sided abdominal pain Luis Estrella MD [address] [facility], [place] [address] [facility] [id number] [place] [address] Referral ID Status Reason Start Date Expiration Date Visits Re quested Visits Authorized [id number] 1 1 Reason Comments ER/Urgent Referral Reason Comments Orders [facility] Reason Comments Patient Update Reason Comments Please call Patient's significant other as soon as possible Reason Comments Procedure EP: PVI + Watchman Reason Comments Medication Question Reason Comments Home Care Reason Onset Date Comments Refill Request 07/19/2023 Reason Comments Hospital F/U Reason Onset Date Comments Refill Request 08/01/2023 Reason Comments Harry Herring is a 73 year old woman presenting for follow up via virtual visit to discuss hospital follow up. Reason Comments Orders Appointment Reason Onset Date Comments Refill Request 09/14/2023 Reason Onset Date Comments Refill Request 10/21/2023 Reason Comments CARD Follow Up 6 Month Reason Comments Results Appointment Reason Comments Orders Reason Comments Annual Medicare Wellness Exam Monica barragan is a 73 year old Female who presents for an Annual Medicare Wellness Exam. Advanced Directives Discussion Patient s tates that she would like the paperwork and will bring to next appointment. Mass Patient has bulging in right lower abdomen. She feels like it is getting bigger . She has some mild tenderness in the area, and has some pain if she is laying a certain position. 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 Radiology Mammogram Patient states she h ad a mammogram in August, but not sure where she had it done. She has not received the results, but will try to find out where and have results sent to us. Reason Comments Appointment Rescheduled Due to change in physician's schedule Reason Comments Results Appointment Reason Comments order/ watchman procedure Reason Comments Patient Education PVI/ Watchman Reason Comments Follow Up Phone Call [facility] follow up call f irst attempt. Reason Comments Cardiac Clearance Reason Comments New hernia Specialty Diagnoses / Procedures Referred By Manuel t Referred To Contact General Surgery Diagnoses Other specified abdominal hernia without obstruction or gangrene Procedures CONSULT TO GENERAL SURGERY OFFICE/OUTPATIENT NEW HIGH MDM [address] [place] [address] [place] [address] Referral ID Status Reason Start Date Expiration Date V isits Requested Visits Authorized [id number] Closed PCP Requested Referral 11/24/2023 11/23/2024 1 1 Reason Comments Education Of Patient/family Reason Comments Medication Problem Care Teams (unrecognized sec tion and content) Forestry Adviser Relationship Specialty Start [place] [address] [place] [address] PCP - General Internal Medicine 01/30/19 Janey Patricia DO [address] [place] [address] Primary Staff Physician Nephrology 03/26/21 Forestry Adviser Relationship Specialty [place] [address] [place] [address] PCP - General Internal Medicine 01/30/19 Janey Patricia DO [address] [place] [address] Primary Staff Physician Nephrology 03/26/21 Forestry Adviser Relationship Specialty Start Date End Date Kayla Monterroso [place] [id number] [place] [address] PCP - General Internal Medicine 01/30/19 Janey Patricia DO [address] [place] [address] Primary Staff Physician Nephrology 03/26/21 Forestry Adviser Relationship Specialty Start Date End Date Kayla Monterroso MD [id number] [place] [address] PCP - General Internal Medicine 01/30/19 Janey Patricia DO [address] [place] [address] Primary Staff Physician Nephrology 03/26/21 Forestry Adviser Relationship Specialty Start Date End Date Kayla Monterroso MD [id number] [place] [address] PCP - General Internal Medicine 01/30/19 Janey Patricia DO [address] [place] [address] Primary Staff Physician Nephrology 03/26/21 Forestry Adviser Relationship Specialty Start Date End Date Kayla Monterroso MD [id number] [place] [address] PCP - General Internal Medicine 01/30/19 Janey Patricia, [address] [place] [address] Primary Staff Physician Nephrology 03/26/21 Forestry Adviser Relationship Specialty [place] [address] [place] [address] PCP - General Internal Medicine 01/30/19 Janey Patricia, [address] [place] [address] Primary Staff Physician Nephrology 03/26/21 Forestry Adviser Relationship Specialty Start [place] [address] [place] [address] PCP - General Internal Medicine 01/30/19 Janey Patricia, [address] [place] [address] Primary Staff Physician Nephrology 03/26/21 Forestry Adviser Relationship Specialty Start [place] [address] [place] [address] PCP - General Internal Medicine 01/30/19 Janey Patricia, [address] [place] [address] Primary Staff Physician Nephrology 03/26/21 Forestry Adviser Relationship Specialty [place] [address] [place] [address] PCP - General Internal Medicine 01/30/19 Janey Patricia, [address] [place] [address] Primary Staff Physician Nephrology 03/26/21 Forestry Adviser Relationship Specialty Start [place] [address] [place] [address] PCP - General Internal Medicine 01/30/19 Janey Patricia DO [address] [place] [address] Primary Staff Physician Nephrology 03/26/21 Forestry Adviser Relationship Specialty Start [place] [address] [place] [address] PCP - General Internal Medicine 01/30/19 Janey Patricia DO [address] [place] [address] Primary Staff Physician Nephrology 03/26/21 Forestry Adviser Relationship Specialty Start [place] [address] [place] [address] PCP - General Internal Medicine 01/30/19 Janey Patricia DO [address] [place] [address] Primary Staff Physician Nephrology 03/26/21 Forestry Adviser Relationship Specialty Start Date End Date Kayla Monterroso MD [address] [place] [address] PCP - General Internal Medicine 01/30/19 Janey Patricia DO [address] [place] [address] Primary Staff Physician Nephrology 03/26/21 Forestry Adviser Relationship Specialty Start Date End Date Kayla Monterroso MD [address] [place] [address] PCP - General Internal Medicine 01/30/19 Janey Patricia DO [address] [place] [address] Primary Staff Physician Nephrology 03/26/21 Forestry Adviser Relationship Specialty Start [place] [address] [place] [address] PCP - General Internal Medicine 01/30/19 Janey Patricia DO [address] [place] [address] Primary Staff Physician Nephrology 03/26/21 Forestry Adviser Relationship Specialty Start [place] [address] [place] [address] PCP - General Internal Medicine 01/30/19 Janey Patricia DO [address] [place] [address] Primary Staff Physician Nephrology 03/26/21 Forestry Adviser Relationship Specialty Start [place] [address] [place] [address] PCP - General Internal Medicine 01/30/19 Janey Patricia DO [address] [place] [address] Primary Staff Physician Nephrology 03/26/21 Forestry Adviser Relationship Specialty Start [place] [address] [place] [address] PCP - General Internal Medicine 01/30/19 Janey Patricia DO [address] [place] [address] Primary Staff Physician Nephrology 03/26/21 Forestry Adviser Relationship Specialty Start [place] [address] [place] [address] PCP - General Internal Medicine 01/30/19 Janey Patricia DO [address] [place] [address] Primary Staff Physician Nephrology 03/26/21 Forestry Adviser Relationship Specialty Start [place] [address] [place] [address] PCP - General Internal Medicine 01/30/19 Janey Patricia DO [address] [place] [address] Primary Staff Physician Nephrology 03/26/21 Forestry Adviser Relationship Specialty Start [place] [address] [place] [address] PCP - General Internal Medicine 05/18/23 Forestry Adviser Relationship Specialty Start [place] [address] [place] [address] PCP - General Internal Medicine 01/30/19 Janey Patricia DO [address] [place] [address] Primary Staff Physician Nephrology 03/26/21 Forestry Adviser Relationship Specialty Start [place] [address] [place] [address] PCP - General Internal Medicine 01/30/19 Janey Patricia DO [address] [place] [address] Primary Staff Physician Nephrology 03/26/21 Forestry Adviser Relationship Specialty Start [place] [address] [place] [address] PCP - General Internal Medicine 01/30/19 Janey Patricia DO [address] [place] [address] Primary Staff Physician Nephrology 03/26/21 Forestry Adviser Relationship Specialty Start [place] [address] [place] [address] PCP - General Internal Medicine 01/30/19 Janey Patricia DO [address] [place] [address] Primary Staff Physician Nephrology 03/26/21 Forestry Adviser Relationship Specialty Start [place] [address] [place] [address] PCP - General Internal Medicine 01/30/19 Janey Patricia DO [address] [place] [address] Primary Staff Physician Nephrology 03/26/21 Forestry Adviser Relationship Specialty Start [place] [address] [place] [address] PCP - General Internal Medicine 01/30/19 Janey Patricia DO [address] [place] [address] Primary Staff Physician Nephrology 03/26/21 Forestry Adviser Relationship Specialty Start [place] [address] [place] [address] PCP - General Internal Medicine 01/30/19 Janey Patricia DO [address] [place] [address] Primary Staff Physician Nephrology 03/26/21 Forestry Adviser Relationship Specialty [place] [address] [place] [address] PCP - General Internal Medicine 01/30/19 Janey Patricia DO [address] [place] [address] Primary Staff Physician Nephrology 03/26/21 Forestry Adviser Relationship Specialty Start [place] [address] [place] [address] PCP - General Internal Medicine 01/30/19 Janey Patricia DO [address] [place] [address] Primary Staff Physician Nephrology 03/26/21 Forestry Adviser Relationship Specialty [place] [address] [place] [address] PCP - General Internal Medicine 01/30/19 Janey Patricia DO [address] [place] [address] Primary Staff Physician Nephrology 03/26/21 Forestry Adviser Relationship Specialty [place] [address] [place] [address] PCP - General Internal Medicine 01/30/19 Janey Patricia DO [address] [place] [address] Primary Staff Physician Nephrology 03/26/21 Forestry Adviser Relationship Specialty Start [place] [address] [place] [address] PCP - General Internal Medicine 01/30/19 Janey Patricia DO [address] [place] [address] Primary Staff Physician Nephrology 03/26/21 Forestry Adviser Relationship Specialty [place] [address] [place] [address] PCP - General Internal Medicine 01/30/19 Janey Patricia DO [address] [place] [address] Primary Staff Physician Nephrology 03/26/21 Forestry Adviser Relationship Specialty [place] [address] [place] [address] PCP - General Internal Medicine 01/30/19 Janey Patricia DO [address] [place] [address] Primary Staff Physician Nephrology 03/26/21 Team Status: Active Member Role Status Dates Kayla Monterroso MD Primary Care Provider Active Team Status: Inactive Member Role Status Dates Kayla Monterroso MD Primary Care Provide r, Attending Provider Active Start: September 09, 2023 End: September 09, 2023 Forestry Adviser Relationship Specialty Start [place] [address] [place] [address] PCP - General Internal Medicine 01/30/19 Janey Patricia DO [address] [place] [address] Primary Staff Physician Nephrology 03/26/21 Forestry Adviser Relationship Specialty Start [place] [address] [place] [address] PCP - General Internal Medicine 01/30/19 Janey Patricia DO [address] [place] [address] Primary Staff Physician Nephrology 03/26/21 Forestry Adviser Relationship Specialty Start [place] [address] [place] [address] PCP - General Internal Medicine 01/30/19 Janey Patricia DO [address] [place] [address] Primary Staff Physician Nephrology 03/26/21 Forestry Adviser Relationship Specialty Start [place] [address] [place] [address] PCP - General Internal Medicine 01/30/19 Janey Patricia DO [address] [place] [address] Primary Staff Physician Nephrology 03/26/21 Forestry Adviser Relationship Specialty Start [place] [address] [place] [address] PCP - General Internal Medicine 01/30/19 Janey Patricia DO [address] [place] [address] Primary Staff Physician Nephrology 03/26/21 Forestry Adviser Relationship Specialty Start [place] [address] [place] [address] PCP - General Internal Medicine 01/30/19 Janey Patricia DO [address] [place] [address] Primary Staff Physician Nephrology 03/26/21 Forestry Adviser Relationship Specialty Start [place] [address] [place] [address] PCP - General Internal Medicine 01/30/19 Janey Patricia DO [address] [place] [address] Primary Staff Physician Nephrology 03/26/21 Forestry Adviser Relationship Specialty Start [place] [address] [place] [address] PCP - General Internal Medicine 01/30/19 Janey Patricia DO [address] [place] [address] Primary Staff Physician Nephrology 03/26/21 Forestry Adviser Relationship Specialty Start [place] [address] [place] [address] PCP - General Internal Medicine 01/30/19 Janey Patricia DO [address] [place] [address] Primary Staff Physician Nephrology 03/26/21 Forestry Adviser Relationship Specialty Start [place] [address] [place] [address] PCP - General Internal Medicine 01/30/19 Janey Patricia DO [address] [place] [address] Primary Staff Physician Nephrology 03/26/21 Forestry Adviser Relationship Specialty Start [place] [address] [place] [address] PCP - General Internal Medicine 01/30/19 Janey Patricia DO [address] [place] [address] Primary Staff Physician Nephrology 03/26/21 Forestry Adviser Relationship Specialty Start [place] [address] [place] [address] PCP - General Internal Medicine 01/30/19 Janey Patricia DO [address] [place] [address] Primary Staff Physician Nephrology 03/26/21 Forestry Adviser Relationship Specialty Start [place] [address] [place] [address] PCP - General Internal Medicine 01/30/19 Forestry Adviser Relationship Specialty Start [place] [address] [place] [address] PCP - General Internal Medicine 01/30/19 Janey Patricia DO [address] [place] [address] Primary Staff Physician Nephrology 03/26/21 Ordered Prescriptions [...] on Keyonna 05/19/23 at 0900, Until Discontinued 818 (Given - Provider: Denisse Thompson, RAY) carvedilol (COREG) tablet 12.5 mg 12.5 mg, Oral, 2 TIMES DAILY, First dose on Tue05/17/23 at 2100, Until Discontinued, Administer with food to minimize the risk of orthostatic hypotension 2157 (Given - Provider: Alissa Resendiz RN) 132 (Given - Provider: Yesy Ruano, RAY)2112 (Given - Provider: Surekha Brown RN) 818 (Given - Provider: Denisse Thompson, RAY)2099 [...] 1326 (Given - Provider: Yesy Ruano, RAY) 08 (Not Given - Provider: Denisse Thompson [...] 25 mcg, IntraVENous, ONCE, 1 dose, On e 05/17/23 at 1345, If oral and IV narcotics [...] Rodrigues RN) 1328 (Given - Provider: Yesy Ruano, RAY)1340 (Not Given - Provider: Yesy Ruano, RAY - Reason: Other - Comment: just gave morning dose)2112 (Given - Provider: Surekha Brown RN) 0819 [...] 2030 2214 (New Bag - Provider: Alissa Resendiz, RN)2244 (Stopped - Provider: Alissa Resendiz RN) [...] RN) 0822 (Not Given - Provider: Denisse Thompson, RN - Reason: Patient/family refused) sodium chloride [...] Brown RN) 421 (Stopped - Provider: Denisse Thompson, RAY - Comment: stopped by other) PRN Medication [...] 6 HOURS PRN, Starting on Tue05/17/23 at 2004, Until Discontinued, Pain Mild (1-3), Fever, For [...] Until Tue05/18/23 at 1328, Yesy Ruano: cabinet overrideAlden Regina: cabinet override 1328 (Given - Provider: Yesy Ruano, RN) sterile water injection (COMPLETED) 1 dose, Starting on Keyonna 05/19/23 at 0810, Until Tue05/19/23 at 0819, DENISSE THOMPSON: cabinet overrideMAYRA BRENDA: cabinet override 0819 (Given - Provid er: Denisse Thompson, RN) Linked Groups Order Group 1: amiodarone [...] patients with CrCl less than 30 mL/min.
Goals (unrecognized section and content) Goals may be documented in a n alternate section FOR RECORDS PERTAINING TO PATIENTS WHO ARE [...] BE BASED ON THE PRIMARY CLINICAL RECORDS. [employer] provides no warranty or guarantee of the accuracy or completeness of information in this document.
--- NOTE | 2024-01-25 04:34 | ED.ABDPAIN1 ---
HPI - Abdominal Pain General Chief Complaint: Abdominal Pain Stated Complaint: FLANK PAIN, RIGHT Time Seen by Provider: 01/25/24 04:04 Source: patient Mode of arrival: Wheelchair Limitations: no limitations History of Present Illness HPI narrative: This 73-year-old female is brought to the emergency department by her significant other for evaluation of right upper quadrant abdominal pain. The patient woke her significant up around 1 AM stating that she was having sharp stabbing pain in her right upper quadrant. It does not radiate. She denies any chest pain or shortness of breath. The patient has a history of A-fib but has recently undergone an ablation procedure and has a Watchman device however she is still on blood thinners. She has nausea but no vomiting or diarrhea. She last ate a pork chop for dinner last night. She has not had any fevers or chills. Denies any back pain. Related Data Home Medications ?Medication ?Instructions ?Recorded ?Confirmed doxazosin 2 mg tablet 2 mg PO BID 04/26/23 06/15/23 hydralazine 50 mg tablet 50 mg PO Q8H 04/26/23 06/15/23 rosuvastatin 20 mg tablet 20 mg PO .QHS 04/26/23 06/15/23 pantoprazole 40 mg tablet,delayed 40 mg PO DAILY 05/20/23 06/15/23 release Tums PO QID PRN STOMACH PAIN 06/15/23 acetaminophen 500 mg tablet 500 mg PO Q6H PRN pain 06/15/23 06/15/23 (Tylenol Extra Strength) carvedilol 6.25 mg tablet 3.125 mg PO Q12H 06/15/23 06/15/23 ondansetron 4 mg disintegrating 4 mg PO Q8H PRN nausea and vomiting 06/15/23 06/15/23 tablet sennosides 8.6 mg-docusate sodium 2 tab-cap PO BID PRN constipation 06/15/23 06/15/23 50 mg tablet (Docuzen) Previous Rx's ?Medication ?Instructions ?Recorded amiodarone 200 mg tablet (Pacerone) 200 mg PO DAILY 30 days #30 tabs 05/22/23 apixaban 5 mg tablet (Eliquis) 2.5 mg (1/2 x 5 mg) PO BID 30 days 03/24/24 #30 tabs bumetanide 1 mg tablet 1 mg PO Q24H #1 tab 06/06/23 spironolactone 25 mg tablet 12.5 mg (1/2 x 25 mg) PO QD #1 tab 06/06/23 doxycycline hyclate 100 mg capsule 100 mg PO BID 10 days #20 caps 06/18/23 Allergies Allergy/AdvReac Type Severity Reaction Status Date / Time No Known Drug Allergies Allergy Verified 01/25/24 04:01 Review of Systems ROS Status of ROS 10 or more systems reviewed and unremarkable except as noted in history and below [facility] Medical History (Updated 01/25/24 @ 07:13 by Clari Ortez MD) Paroxysmal atrial fibrillation ?I48.0 - Paroxysmal atrial fibrillation (ICD-10) Severe protein-calorie malnutrition ?E43 - Unspecified severe protein-calorie malnutrition (ICD-10) Anemia in CKD (chronic kidney disease) ?N18.9 - Chronic kidney disease, unspecified (ICD-10) ?D63.1 - Anemia in chronic kidney disease (ICD-10) CKD (chronic kidney disease) stage 4, GFR 15-29 ml/min ?N18.4 - Chronic kidney disease, stage 4 (severe) (ICD-10) Acute on chronic heart failure with preserved ejection fraction (HFpEF) ?I50.33 - Acute on chronic diastolic (congestive) heart failure (ICD-10) Weakness generalized ?R53.1 - Weakness (ICD-10) CAD (coronary artery disease), [place] coronary artery ?I25.10 - Atherosclerotic heart disease of [place] coronary artery without angina pectoris (ICD-10) Hypertension ?I10 - Essential (primary) hypertension (ICD-10) Chronic heart failure with preserved ejection fraction (HFpEF) ?I50.32 - Chronic diastolic (congestive) heart failure (ICD-10) Pain, dental ?K08.89 - Other specified disorders of teeth and supporting structures (ICD-10) GERD (gastroesophageal reflux disease) ?K21.9 - Gastro-esophageal reflux disease without esophagitis (ICD-10) 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 - Unspecified atherosclerosis of [place] arteries of extremities, unspecified extremity (ICD-10) History of heart attack ?I25.2 - Old myocardial infarction (ICD-10) Abnormal colonoscopy ?R93.3 - Abnormal findings on diagnostic imaging of other parts of digestive tract (ICD-10) Colon polyp ?K63.5 - Polyp of colon (ICD-10) Surgical History H/O tubal ligation ?Z98.51 - Tubal ligation status (ICD-10) Hx of tonsillectomy ?Z90.89 - Acquired absence of other organs (ICD-10) Family History (Updated 06/16/23 @ 01:25 by Ira Blue) Sister Family history of diabetes mellitus Brother Family history of diabetes mellitus Social History (Updated 06/16/23 @ 01:26 by Ira Blue) Within the past year, how often did you have a drink containing alcohol: never Score interpretation: A score less than 3 is consistent with normal alcohol consumption. Smoking status: Former smoker Non-prescribed substance use: denies use Previous occupational history: retired Highest level of school completed/degree received: 11th grade Are you now , , , , never or living with a partner: In a typical week, how many times do you talk on the telephone with family, friends, or neighbors: once per week How often do you get together with friends or relatives: once per week How often do you attend buddhist or yazdanism services: never Little interest or pleasure in doing things: not at all Feeling down, depressed, or hopeless: not at all Feel stressed/tense/nervous/anxious/difficulty sleeping: not at all Due to disability, difficulty making decisions: No Do you think of yourself as: straight/heterosexual Gender Identity: female Exam Narrative Exam Narrative: Vital signs and Nursing Notes reviewed: Patient is afebrile with a normal pulse, normal blood pressure, she is not hypoxic with pulse ox of 98% on room air General: Awake, alert, oriented, thin female, no acute distress, lying comfortably on the stretcher HEENT: Normocephalic atraumatic, mucous membranes are moist and pink, eyes are clear, normal conjunctiva, vision is grossly intact, posterior pharynx is normal in appearance. Neck: Supple, no JVD Chest: Lungs are clear to auscultation with good air entry, there is no wheezing rhonchi or rales appreciated no accessory muscle use, patient is speaking in complete sentences-no chest wall tenderness to palpation CVS: Regular rate and rhythm S1-S2, no murmurs rubs or gallops, pulses are brisk and equal bilaterally ABD: Soft, flat, nondistended, no rebound guarding or rigidity, no reproducible tenderness in the epigastrium, right upper quadrant left upper quadrant or right lower quadrant, no pulsatile masses appreciated Extremities: Moving all extremities, no lower extremity tenderness or swelling noted, negative Homans' sign, pulses are brisk and equal bilaterally Skin: Normal in appearance without rash,pallor, petechiae or purpura Neuro: No focal deficits Constitutional Vital Signs, click to edit/add: Last Vital Signs Temp 97.9 F 01/25/24 04:01 Pulse 54 L 01/25/24 06:04 Resp 18 01/25/24 06:04 BP 128/58 01/25/24 06:04 Pulse Ox 97 01/25/24 06:04 O2 Del Method Room Air 01/25/24 04:01 Course Vital Signs Vital signs: Vital Signs Temperature 97.9 F 01/25/24 04:01 Pulse Rate 61 01/25/24 04:01 Respiratory Rate 18 01/25/24 04:01 Blood Pressure 131/52 01/25/24 04:01 Pulse Oximetry 98 01/25/24 04:01 Oxygen Delivery Method Room Air 01/25/24 04:01 Temperature 97.9 F 01/25/24 04:01 Pulse Rate 54 L 01/25/24 06:04 Respiratory Rate 18 01/25/24 06:04 Blood Pressure 128/58 01/25/24 06:04 Pulse Oximetry 97 01/25/24 06:04 Oxygen Delivery Method Room Air 01/25/24 04:01 MDM - Abdominal Pain MDM Narrative Medical decision making narrative: This 73-year-old female is brought to the emergency department by her significant other for evaluation of right upper quadrant abdominal pain and nausea. The symptoms started around 1 AM. She had a pork chop for dinner last night. She complained of some nausea but not had any vomiting or diarrhea. She is on blood thinners due to a history of atrial fibrillation but has recently had an ablation procedure and a Watchman device placed. She is scheduled to have a cardiology follow-up in the near future to decide whether or not to take her off her blood thinners. She is well-appearing with normal vital signs. An IV was placed and routine labs were ordered. She has a normal white count and hemoglobin. Electrolytes are at her baseline. She does have an elevated BUN and creatinine which appears stable for her. CT scan of the abdomen pelvis without contrast was ordered due to her renal insufficiency. Morphine, Zofran and Pepcid was ordered for her but she declined the morphine stating she was not having any pain at that time. She has remained hemodynamically stable. She has not had any episodes of vomiting or diarrhea. CT scan of the abdomen pelvis shows mildly dilated gallbladder without stones, biliary ductal dilatation or other notable abnormality. It also shows some deposits in the liver which may be related to her amiodarone use over the course of the past several years due to her history of atrial fibrillation. She was given a copy of her CT scan. She states she has a surgeon at [facility] where she is scheduled to have an inguinal hernia repair next month. I encouraged her to discuss the right upper quadrant abdominal pain and findings on her CT scan with the surgeon and discuss whether or not she will need a cholecystectomy. At this time she is stable for discharge. Her significant other request that she be discharged home with pain medication because he has pain medication but will not share it with her. She will also be discharged home with Zofran. I encouraged her to follow a low-fat diet and return to the emergency department for worsening abdominal pain or any concerns. Medical Records Medical records narrative: The [address] [address] [address] Scan Report Signed Patient: NEELAM VIRAMONTES MR#: [id number] : 1950 Acct:[id number] Age/Sex: 73 / F ADM Date: 01/25/24 Loc: ER Attending Dr: Ordering Physician: Clari Ortez Date of Service: 01/25/24 Procedure(s): CT abdomen pelvis wo con Accession Number(s): [id number] cc: Physician,Non-Staff M.D.~ The [address] [address] Patient Name: NEELAM VIRAMONTES MRN: [id number] date: 1950 Sex: F Assigned Patient Location: ER Current Patient Location: ER Accession/Order Number: [id number] Exam Date: 01/25/2024 05:07 Report Date: 01/25/2024 06:43 At the request of: CLARI MARKER Procedure: CT abdomen pelvis wo con EXAM: CT abdomen pelvis wo con HISTORY: RUQ abd pain COMPARISON: CT abdomen pelvis, 06/16/2023. TECHNIQUE: Nonenhanced CT imaging the abdomen and pelvis was performed with sagittal and coronal reconstructions. Dose reduction techniques were achieved by using automated exposure control and/or adjustment of mA and/or kV according to patient size and/or use of iterative reconstruction technique. FINDINGS: CT ABDOMEN: The lung bases are clear. The heart is top normal in size. There is no pericardial effusion. The gallbladder is distended with no intrinsic stones, wall thickening or pericholecystic fluid. The liver appears hyperdense but otherwise unremarkable. The pancreas, spleen, adrenal glands, stomach and small bowel are grossly unremarkable, allowing for the lack of contrast. There is a 4.1 cm cortical cyst posterior midpole of the right kidney with a smaller exophytic cyst off the posterior lower pole. There is stable asymmetric left renal atrophy and cortical scarring. There are dense aortic calcifications, with an ectatic infrarenal abdominal aorta measuring 2.5 x 2.5 cm on image 52 of series 2. The IVC is unremarkable. CT PELVIS: The appendix, pelvic small bowel loops, and uterus are unremarkable. There are several right ovarian cystic lesions measuring up to 2 cm on image 95. The left ovary is not well seen. Nonspecific air in the anterior bladder lumen may be due to recent catheterization. The bladder is otherwise unremarkable. There is moderate sigmoid diverticulosis. A small fat-containing umbilical hernia is present. No inflammatory fat stranding, free fluid, loculated fluid or free air is seen in the abdomen or pelvis. Prior kyphoplasty is again seen at the T10, T11 and T12 levels, unchanged. No acute osseous abnormality or suspicious bony lesion is seen. CT/CT abdomen pelvis wo con IMPRESSION: 1. Mild gallbladder distention without intrinsic calcified stones, wall thickening or pericholecystic fluid. 2. Hyperdense liver, nonspecific and new since the 06/01/2023 exam. Potential considerations include excessive iron deposition in hemosiderosis and hemachromatosis, copper deposition in Denny's disease, type IV glycogen storage disease, or chronic use of amiodarone or gold therapy. 3. New nonspecific air in the anterior urinary bladder lumen may be due to recent catheterization. Clinical correlation recommended. No bladder wall thickening or inflammatory change to raise suspicion for gas-forming urinary tract infection. No focal wall defect to suggest fistula to adjacent hollow viscus. No other potential acute diagnostic abnormality in the abdomen or pelvis. 4. Additional nonemergent findings are present, as above. Electronically authenticated by: MADELINE GALLEGOS Date: 01/25/2024 06:43 Lab Data Attestation: I reviewed the patient's lab results. Labs: Lab Results 01/25/24 01/25/24 Range/Units 04:10 06:25 WBC 5.3 (4.0-11.0) 10^3/uL RBC 3.25 L (4.20-5.40) 10^6/uL Hgb 10.3 L (12.0-16.0) g/dL Hct 31.7 L (36.0-48.0) % MCV 97.5 (81.0-99.0) fL MCH 31.7 (26.7-34.0) pg MCHC 32.5 (29.9-35.2) g/dL RDW 14.3 (11.0-15.0) % Plt Count 191 (150-450) 10^3/uL MPV 10.5 (9.5-13.5) fL Neut % (Auto) 66.2 (43.0-75.0) % Lymph % (Auto) 19.0 L (20.5-60.0) % [place] % (Auto) 10.6 (1.7-12.0) % Eos % (Auto) 2.7 (0.9-7.0) % Baso % (Auto) 1.3 (0.2-2.0) % Neut # (Auto) 3.5 (1.4-6.5) 10^3/uL Lymph # (Auto) 1.0 L (1.2-3.8) 10^3/uL [place] # (Auto) 0.6 (0.3-0.8) 10^3/uL Eos # (Auto) 0.1 (0.0-0.7) 10^3/uL Baso # (Auto) 0.1 (0.0-0.1) 10^3/uL Abs Immat Gran (auto) 0.01 (0.00-0.03) 10^3/uL Imm/Tot Granulo (auto) 0.2 (0.0-0.5) % Sodium 140 (136-145) mmol/L Potassium 4.1 (3.5-5.1) mmol/L Chloride 107 (98-107) mmol/L Carbon Dioxide 25.6 (21.0-32.0) mmol/L Anion Gap 11.5 BUN 36.0 H (7.0-18.0) mg/dL Creatinine 2.34 H (0.55-1.02) mg/dL Est GFR ( Amer) 25 L (>=60 mL/min/1.73m^2) Est GFR (Non-Af Amer) 20 L (>=60 mL/min/1.73m^2) BUN/Creatinine Ratio 15.4 Glucose 101 (74-106) mg/dL Calcium 8.6 (8.5-10.1) mg/dL Total Bilirubin 0.5 (0.2-1.0) mg/dL AST 37 (15-37) U/L ALT 44 (14-59) U/L Alkaline Phosphatase 62 (46-116) U/L Total Protein 5.8 L (6.4-8.2) g/dL Albumin 2.7 L (3.4-5.0) g/dL Globulin 3.1 g/dL Albumin/Globulin Ratio 0.9 Lipase 30.0 (16.0-77.0) U/L Urine Color Lt. yellow (YELLOW) Urine Clarity Clear (CLEAR) Urine pH 5.5 (5.0-9.0) Ur Specific [place] 1.020 (1.005-1.025) Urine Protein Negative (NEG/TRACE) mg/dL Urine Glucose (UA) Negative (NEGATIVE) mg/dL Urine Ketones Negative (NEGATIVE) mg/dL Urine Occult Blood Negative (NEGATIVE) Urine Nitrite Negative (NEGATIVE) Urine Bilirubin Negative (NEGATIVE) Urine Urobilinogen 0.2 (0.2-1.0) EU/dL Ur Leukocyte Esterase Negative (NEGATIVE) Urine RBC None seen (0-2) #/HPF Urine WBC 0-2 A (NONE SEEN) #/HPF Ur Squamous Epith Cells Few A (NONE/RARE) #/LPF Urine Bacteria Large A (NONE SEEN) #/HPF Urine Mucus None seen (NONE SEEN) Ur Culture Indicated? Yes Discharge Plan Discharge Chief Complaint: Abdominal Pain Clinical Impression: Biliary colic Patient Disposition: Home, Self-Care Time of Disposition Decision: 07:13 Condition: Good Mode of Transportation: Private Vehicle Prescriptions / Home Meds: No Action pantoprazole 40 mg tablet,delayed release (DR/EC) 40 mg PO DAILY Eliquis 5 mg Tablet 2.5 mg PO BID 30 Days Qty: 30 0RF amiodarone [Pacerone] 200 mg Tablet 200 mg PO DAILY 30 Days Qty: 30 0RF spironolactone 25 mg Tablet 12.5 mg PO QD Qty: 1 0RF bumetanide 1 mg Tablet 1 mg PO Q24H Qty: 1 0RF ondansetron 4 mg tablet,disintegrating 4 mg PO Q8H PRN (Reason: nausea and vomiting) sennosides-docusate sodium [Docuzen] 8.6-50 mg tablet 2 tab-cap PO BID PRN (Reason: constipation) Tums PO QID PRN (Reason: STOMACH PAIN) acetaminophen [Tylenol Extra Strength] 500 mg tablet 500 mg PO Q6H PRN (Reason: pain) carvedilol 6.25 mg Tablet 3.125 mg PO Q12H doxycycline hyclate 100 mg capsule 100 mg PO BID 10 Days Qty: 20 0RF hydralazine 50 mg tablet 50 mg PO Q8H doxazosin 2 mg tablet 2 mg PO BID rosuvastatin 20 mg tablet 20 mg PO .QHS Print Language: German Instructions: Biliary Colic (ED) Referrals: Physician,Non-Staff, MD [Primary Care Provider] - 1 week Discharge Date/Time: 01/25/24 07:30
[2024-01-25 04:39] LABS: Basophils Absolute Auto 0.1 10^3/uL (0.0-0.1); Basophils Percent Auto 1.3 % (0.2-2.0); Eosinophils Absolute Auto 0.1 10^3/uL (0.0-0.7); Eosinophils Percent Auto 2.7 % (0.9-7.0); Hematocrit 31.7 % (36.0-48.0); Hemoglobin 10.3 g/dL (12.0-16.0); Immature Granulocytes Abs Auto 0.01 10^3/uL (0.00-0.03); Immature Granulocytes Pct Auto 0.2 % (0.0-0.5); Mean Corpuscular HGB Conc 32.5 g/dL (29.9-35.2); Mean Corpuscular Hemoglobin 31.7 pg (26.7-34.0); Mean Corpuscular Volume 97.5 fL (81.0-99.0); Mean Platelet Volume 10.5 fL (9.5-13.5); Monocytes Absolute Auto 0.6 10^3/uL (0.3-0.8); Monocytes Percent Auto 10.6 % (1.7-12.0); Neutrophils Absolute Auto 3.5 10^3/uL (1.4-6.5); Neutrophils Percent Auto 66.2 % (43.0-75.0); Platelet Count 191 10^3/uL (150-450); Red Blood Count 3.25 10^6/uL (4.20-5.40); Red Cell Distribution Width 14.3 % (11.0-15.0); White Blood Count 5.3 10^3/uL (4.0-11.0)
[2024-01-25 04:50] LABS: Alanine Aminotransferase 44 U/L (14-59); Albumin Level 2.7 g/dL (3.4-5.0); Alkaline Phosphatase 62 U/L (46-116); Anion Gap 11.5; Aspartate Amino Transferase 37 U/L (15-37); BUN Creatinine Ratio 15.4; Bilirubin Total 0.5 mg/dL (0.2-1.0); Calcium 8.6 mg/dL (8.5-10.1); Carbon Dioxide 25.6 mmol/L (21.0-32.0); Chloride 107 mmol/L (98-107); Estimated GFR (African America 25 (>=60 mL/min/1.73m^2); Estimated GFR (Non-African Ame 20 (>=60 mL/min/1.73m^2); Globulin 3.1 g/dL; Glucose 101 mg/dL (74-106); Potassium 4.1 mmol/L (3.5-5.1); Sodium 140 mmol/L (136-145); Total Protein 5.8 g/dL (6.4-8.2)
[2024-01-25 04:51] LABS: Albumin Globulin Ratio 0.9
[2024-01-25 04:52] VITALS: BP 134/63; PULSE 55; O2SAT 95
[2024-01-25] MEDS: FAMOTIDINE/PF 20 MG/2 ML VIAL IV (04:53)
[2024-01-25] MEDS: ONDANSETRON PF 4 MG/2 ML VIAL IV (04:54)
[2024-01-25 05:30] VITALS: BP 142/64; PULSE 54; O2SAT 98
[2024-01-25 06:04] VITALS: BP 128/58; PULSE 54; O2SAT 97
[2024-01-25 06:55] LABS: Bilirubin Urine NEGATIVE (NEGATIVE); Blood Urine NEGATIVE (NEGATIVE); Clarity Urine CLEAR (CLEAR); Color Urine LT. YELLOW (YELLOW); Glucose Urine UA NEGATIVE (NEGATIVE); Ketones Urine NEGATIVE (NEGATIVE); Leukocyte Esterase Urine NEGATIVE (NEGATIVE); Nitrite Urine NEGATIVE (NEGATIVE); Protein Urine NEGATIVE (NEG/TRACE); Urobilinogen Urine 0.2 EU/dL (0.2-1.0); pH Urine 5.5 (5.0-9.0)
[2024-01-25 07:04] LABS: Bacteria Urine LARGE #/HPF (NONE SEEN); Mucus Urine NONE SEEN (NONE SEEN); RBC Urine NONE SEEN #/HPF (0-2); WBC Urine 0-2 #/HPF (NONE SEEN)
[2024-01-25 07:05] LABS: Squamous Epithelial Cell Urine FEW #/LPF (NONE/RARE); Urine Culture Indicated YES
== END 2024-01-25 07:30 | disposition home or self-care (01) ==
PROVIDERS: Emergency Provider Emergency Medicine
DX: K80.50 Calculus of bile duct without cholangitis or cholecystitis without obstruction (principal); I48.0 Paroxysmal atrial fibrillation; Z98.51 Tubal ligation status; Z87.891 Personal history of nicotine dependence; N28.9 Disorder of kidney and ureter, unspecified; Z79.01 Long term (current) use of anticoagulants
CPT/HCPCS: 36415; 74176; 80053; 81001; 83690; 85025; 87086; 87150; 87186; 96374; 96375; 99284; J2405

== ENCOUNTER 2024-03-28 15:25 | Observation (INO) | payer OTHER, SELFPAY ==
[2024-03-28] VITALS (9 sets, daily range): BP systolic 95–123; BP diastolic 50–74; PULSE 52–76; TEMP 37.1–37.9; O2SAT 95–96; BMI 19.5; BMI 19.0
--- NOTE | 2024-03-28 15:36 | XR_ITS ---
The [address] [address] Patient Name: NEELAM VIRAMONTES MRN: [id number] date: 1950 Sex: F Assigned Patient Location: ER Current Patient Location: ER Accession/Order Number: [id number] Exam Date: 03/28/2024 15:45 Report Date: 03/28/2024 16:22 At the request of: GAB MAYORGA Procedure: XR chest 1V EXAMINATION: XR chest 1V, , 03/28/2024 12:45 PM PST INDICATION: Cough HISTORY: Ordering Provider Reason for Exam: Cough Technologist Note: Additional: COMPARISON: Chest x-ray of 06/16/2023. TECHNIQUE: Chest x-ray: One view. FINDINGS: No pneumothorax, pleural effusion or focal airspace consolidation. Mild enlarged cardiac silhouette is seen. Stable likely benign calcified nodule is seen projecting over the left midlung. Bony thorax is unremarkable. XR/XR chest 1V IMPRESSION: No acute cardiopulmonary process. Electronically authenticated by: LINDSAY RICARDO Date: 03/28/2024 16:22
--- NOTE | 2024-03-28 15:46 | ECG_ITS ---
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
--- NOTE | 2024-03-28 15:48 | ED.GENADUL1 ---
HPI HPI - General Adult General Chief complaint: Upper Respiratory Infection Stated complaint: Upper Respiratory Infection Time Seen by Provider: 03/28/24 15:26 Source: patient Mode of arrival: Wheelchair History of Present Illness HPI narrative: Patient is a 73-year-old male who presents to the emergency department with her significant other for evaluation of cough and congestion that began yesterday. Patient reports head pressure, decreased appetite and oral intake as well as generalized weakness. She has not been evaluated by her primary care provider or been placed on any medications for the symptoms. She denies any significant sputum production. Her significant other states she is too weak to walk so he brought her to this emergency department from [place] where they live. This patient has an extensive history at this hospital in the past related to her atrial fibrillation and is established with cardiology at outside tertiary care facilities. She denies any need for pain medication or nausea medication at this time. Related Data Home Medications ?Medication ?Instructions ?Recorded ?Confirmed doxazosin 2 mg tablet 2 mg PO BID 04/26/23 03/28/24 hydralazine 50 mg tablet 50 mg PO Q12H 04/26/23 03/28/24 Tums PO QID PRN STOMACH PAIN 06/15/23 acetaminophen 500 mg tablet 500 mg PO Q6H PRN pain 06/15/23 03/28/24 (Tylenol Extra Strength) carvedilol 6.25 mg tablet 3.125 mg PO Q12H 06/15/23 03/28/24 sennosides 8.6 mg-docusate sodium 2 tab-cap PO BID PRN constipation 06/15/23 03/28/24 50 mg tablet (Docuzen) Previous Rx's ?Medication ?Instructions ?Recorded spironolactone 25 mg tablet 12.5 mg (1/2 x 25 mg) PO QD #1 tab 06/06/23 Allergies Allergy/AdvReac Type Severity Reaction Status Date / Time No Known Drug Allergies Allergy Verified 03/28/24 15:33 Opioid HPI Opioid Management Most Recent Opioid Data: Last Pain Scale 0 01/25/24 07:07 01/25/24 Last Pain Intensity 0 06/06/23 11:18 06/06/23 Last ORT Total Score 0 06/01/23 22:34 06/01/23 Last ORT Risk Category Low Risk 06/01/23 22:34 06/01/23 Review of Systems ROS Constitutional Reports: fever and chills Ears, nose, mouth, and throat Reports: nasal congestion; Denies: throat pain Cardiovascular Denies: chest pain Respiratory Reports: cough and chest congestion; Denies: shortness of breath Gastrointestinal Denies: abdominal pain, nausea, vomiting or diarrhea Integumentary/Breast Denies: rash Neurological Reports: headache; Denies: numbness in extremities or weakness in extremities Hematologic/Lymphatic Denies: easy bruising or easy bleeding PFSH [facility] Medical History (Updated 03/28/24 @ 17:25 by QUENTIN Sifuentes) Paroxysmal atrial fibrillation ?I48.0 - Paroxysmal atrial fibrillation (ICD-10) Severe protein-calorie malnutrition ?E43 - Unspecified severe protein-calorie malnutrition (ICD-10) Anemia in CKD (chronic kidney disease) ?N18.9 - Chronic kidney disease, unspecified (ICD-10) ?D63.1 - Anemia in chronic kidney disease (ICD-10) CKD (chronic kidney disease) stage 4, GFR 15-29 ml/min ?N18.4 - Chronic kidney disease, stage 4 (severe) (ICD-10) Acute on chronic heart failure with preserved ejection fraction (HFpEF) ?I50.33 - Acute on chronic diastolic (congestive) heart failure (ICD-10) Weakness generalized ?R53.1 - Weakness (ICD-10) CAD (coronary artery disease), [place] coronary artery ?I25.10 - Atherosclerotic heart disease of [place] coronary artery without angina pectoris (ICD-10) Hypertension ?I10 - Essential (primary) hypertension (ICD-10) Chronic heart failure with preserved ejection fraction (HFpEF) ?I50.32 - Chronic diastolic (congestive) heart failure (ICD-10) Pain, dental ?K08.89 - Other specified disorders of teeth and supporting structures (ICD-10) GERD (gastroesophageal reflux disease) ?K21.9 - Gastro-esophageal reflux disease without esophagitis (ICD-10) 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 - Unspecified atherosclerosis of [place] arteries of extremities, unspecified extremity (ICD-10) History of heart attack ?I25.2 - Old myocardial infarction (ICD-10) Abnormal colonoscopy ?R93.3 - Abnormal findings on diagnostic imaging of other parts of digestive tract (ICD-10) Colon polyp ?K63.5 - Polyp of colon (ICD-10) Surgical History H/O tubal ligation ?Z98.51 - Tubal ligation status (ICD-10) Hx of tonsillectomy ?Z90.89 - Acquired absence of other organs (ICD-10) Family History (Updated 06/16/23 @ 01:25 by Ira Blue) Sister Family history of diabetes mellitus Brother Family history of diabetes mellitus Social History Within the past year, how often did you have a drink containing alcohol: never Score interpretation: A score less than 3 is consistent with normal alcohol consumption. Smoking status: Former smoker Non-prescribed substance use: denies use Previous occupational history: retired Highest level of school completed/degree received: 11th grade Are you now , , , , never or living with a partner: In a typical week, how many times do you talk on the telephone with family, friends, or neighbors: once per week How often do you get together with friends or relatives: once per week How often do you attend buddhist or jehovah's witness services: never Little interest or pleasure in doing things: not at all Feeling down, depressed, or hopeless: not at all Feel stressed/tense/nervous/anxious/difficulty sleeping: not at all Due to disability, difficulty making decisions: No Do you think of yourself as: straight/heterosexual Gender Identity: female Exam Narrative Exam Narrative: Gen.: Awake, alert, in no distress Head: Normocephalic, atraumatic ENT: Moist mucous membranes Respiratory: No respiratory distress, lungs clear bilaterally Cardio: Regular rate and rhythm Gastrointestinal: Abdomen is soft, nondistended and nontender to palpation Extremities: Moves extremities equally Psych: Normal mood and affect Neuro: No focal neuro deficit Skin: Warm, dry, intact Constitutional Vital Signs, click to edit/add: Last Vital Signs Temp 98.8 F 03/28/24 15:33 Pulse 76 03/28/24 17:09 Resp 20 03/28/24 17:09 BP 123/74 03/28/24 17:09 Pulse Ox 96 03/28/24 17:09 O2 Del Method Room Air 03/28/24 17:09 Course Vital Signs Vital signs: Vital Signs Blood Pressure 119/55 03/28/24 15:32 Pulse Oximetry 95 03/28/24 15:32 Temperature 98.8 F 03/28/24 15:33 Pulse Rate 76 03/28/24 17:09 Respiratory Rate 20 03/28/24 17:09 Blood Pressure 123/74 03/28/24 17:09 Pulse Oximetry 96 03/28/24 17:09 Oxygen Delivery Method Room Air 03/28/24 17:09 Medical Decision Making MDM Narrative Medical decision making narrative: Patient was medicated with IV fluids. She is positive for COVID. She did not have any requirements for pain medication or nausea medication in the emergency department. Laboratory studies show stable anemia, stable chronic kidney disease. Troponin is within normal limits. Chest x-ray shows no evidence of acute cardiopulmonary changes. Cardiac monitoring did show occasional ectopy although the patient remains rate controlled Patient was reevaluated by attending physician, patient's significant other states he is not able to care for her, she is profoundly weak and not willing to eat or drink. Based on her age and clinical history, we will admit for observation for IV fluids. She is stable at time of admission. SHARED APC VISIT, PHYSICIAN ATTESTATION: [id number] I performed a substantive part of the MDM during the patient?s E/M visit. I personally evaluated and examined the patient. I personally made or approved the documented management plan and acknowledge its risk of complications. Medical Records Medical records reviewed: Yes I reviewed the patient's medical records Lab Data Lab results reviewed: Yes I reviewed the patient's lab results Labs: Lab Results 03/28/24 03/28/24 Range/Units 15:35 16:10 WBC 6.1 (4.0-11.0) 10^3/uL RBC 3.26 L (4.20-5.40) 10^6/uL Hgb 9.9 L (12.0-16.0) g/dL Hct 30.8 L (36.0-48.0) % MCV 94.5 (81.0-99.0) fL MCH 30.4 (26.7-34.0) pg MCHC 32.1 (29.9-35.2) g/dL RDW 14.6 (11.0-15.0) % Plt Count 141 L (150-450) 10^3/uL MPV 10.3 (9.5-13.5) fL Neut % (Auto) 75.1 H (43.0-75.0) % Lymph % (Auto) 15.2 L (20.5-60.0) % [place] % (Auto) 8.8 (1.7-12.0) % Eos % (Auto) 0.2 L (0.9-7.0) % Baso % (Auto) 0.5 (0.2-2.0) % Neut # (Auto) 4.6 (1.4-6.5) 10^3/uL Lymph # (Auto) 0.9 L (1.2-3.8) 10^3/uL [place] # (Auto) 0.5 (0.3-0.8) 10^3/uL Eos # (Auto) 0.0 (0.0-0.7) 10^3/uL Baso # (Auto) 0.0 (0.0-0.1) 10^3/uL Abs Immat Gran (auto) 0.01 (0.00-0.03) 10^3/uL Imm/Tot Granulo (auto) 0.2 (0.0-0.5) % Sodium 139 (136-145) mmol/L Potassium 4.1 (3.5-5.1) mmol/L Chloride 106 (98-107) mmol/L Carbon Dioxide 25.1 (21.0-32.0) mmol/L Anion Gap 12.0 BUN 36.0 H (7.0-18.0) mg/dL Creatinine 1.93 H (0.55-1.02) mg/dL Est GFR ( Amer) 31 L (>=60 mL/min/1.73m^2) Est GFR (Non-Af Amer) 26 L (>=60 mL/min/1.73m^2) BUN/Creatinine Ratio 18.7 Glucose 78 (74-106) mg/dL Lactate 0.8 (0.4-2.0) mmol/L Calcium 8.2 L (8.5-10.1) mg/dL Total Bilirubin 0.5 (0.2-1.0) mg/dL AST 13 L (15-37) U/L ALT 12 L (14-59) U/L Alkaline Phosphatase 62 (46-116) U/L Troponin I High Sens 15.4 (4.0-51.3) pg/mL Total Protein 5.6 L (6.4-8.2) g/dL Albumin 2.8 L (3.4-5.0) g/dL Globulin 2.8 g/dL Albumin/Globulin Ratio 1.0 Influenza Type A Ag Negative Influenza Type B Ag Negative SARS-CoV-2 Ag (CV2AG) Positive A (NEGATIVE) Imaging Data Chest x-ray: Attestation: I have reviewed the pertinent imaging results. Radiologist's impression: ITS Impressions Chest X-Ray 03/28/24 15:36 IMPRESSION: No acute cardiopulmonary process. Electronically authenticated by: LINDSAY RICARDO Date: 03/28/2024 16:22 ECG Data Attestation: I personally reviewed and interpreted this ECG as follows: (Normal sinus rhythm at a rate of 53, no acute ST elevation or ectopy. EKG reviewed by attending physician) Discharge Plan Discharge Chief Complaint: Upper Respiratory Infection Clinical Impression: COVID-19, Weakness Patient Disposition: Admitted as Observation Time of Disposition Decision: 17:25 Condition: Good
[2024-03-28 16:00] LABS: Influenza Virus A Antigen Negative; Influenza Virus B Antigen Negative; Internal Control Within Normal Limits; SARS-CoV-2 Ag POSITIVE (NEGATIVE)
[2024-03-28] MEDS: 0.9 % SODIUM CHLORIDE 1,000 ML 1000 ML IV (16:18)
[2024-03-28 16:21] LABS: Basophils Percent Auto 0.5 % (0.2-2.0); Eosinophils Percent Auto 0.2 % (0.9-7.0); Hematocrit 30.8 % (36.0-48.0); Hemoglobin 9.9 g/dL (12.0-16.0); Immature Granulocytes Abs Auto 0.01 10^3/uL (0.00-0.03); Immature Granulocytes Pct Auto 0.2 % (0.0-0.5); Lymphocytes Absolute Auto 0.9 10^3/uL (1.2-3.8); Lymphocytes Percent Auto 15.2 % (20.5-60.0); Mean Corpuscular HGB Conc 32.1 g/dL (29.9-35.2); Mean Corpuscular Hemoglobin 30.4 pg (26.7-34.0); Mean Corpuscular Volume 94.5 fL (81.0-99.0); Mean Platelet Volume 10.3 fL (9.5-13.5); Monocytes Absolute Auto 0.5 10^3/uL (0.3-0.8); Monocytes Percent Auto 8.8 % (1.7-12.0); Neutrophils Absolute Auto 4.6 10^3/uL (1.4-6.5); Neutrophils Percent Auto 75.1 % (43.0-75.0); Platelet Count 141 10^3/uL (150-450); Red Blood Count 3.26 10^6/uL (4.20-5.40); Red Cell Distribution Width 14.6 % (11.0-15.0); White Blood Count 6.1 10^3/uL (4.0-11.0)
[2024-03-28 16:39] LABS: Alanine Aminotransferase 12 U/L (14-59); Albumin Level 2.8 g/dL (3.4-5.0); Alkaline Phosphatase 62 U/L (46-116); Aspartate Amino Transferase 13 U/L (15-37); BUN Creatinine Ratio 18.7; Bilirubin Total 0.5 mg/dL (0.2-1.0); Calcium 8.2 mg/dL (8.5-10.1); Carbon Dioxide 25.1 mmol/L (21.0-32.0); Chloride 106 mmol/L (98-107); Estimated GFR (African America 31 (>=60 mL/min/1.73m^2); Estimated GFR (Non-African Ame 26 (>=60 mL/min/1.73m^2); Globulin 2.8 g/dL; Glucose 78 mg/dL (74-106); Potassium 4.1 mmol/L (3.5-5.1); Sodium 139 mmol/L (136-145); Total Protein 5.6 g/dL (6.4-8.2)
[2024-03-28 16:41] LABS: Lactate/Lactic Acid 0.8 mmol/L (0.4-2.0)
[2024-03-28 16:42] LABS: Troponin I High Sensitivity 15.4 pg/mL (4.0-51.3)
--- NOTE | 2024-03-28 19:05 | PC.NURSE ---
Report called to RAY Durham on med surg. at this time.
--- OUTSIDE RECORDS SUMMARY | 2024-03-28 20:09 | XMS_ITS | CCD ---
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 #### [address] [place], [facility] [employer]: Daniella Lott MD Eosinophils (Bld) [#/Vol] 0.06 10*3/uL Normal 0.00-0.44 [facility] Comment on above: Performed By: #### T ROPI #### [address] [place], [facility]83 [employer]: Daniella Lott MD Eosinophils/100 WBC (Bld) 1 % Normal 1-4 [facility] Comment on above: Performed By: #### T ROPI #### [address] [place], [facility] [employer]: Daniella Lott MD Erythrocyte distribution width (RBC) [Ratio] 13.5 % Normal 11.8-14.4 [facility] Comment on above: Performed By: #### T ROPI #### [address] [place], [facility] [employer]: Daniella Lott MD Hematocrit (Bld) [Volume fraction] 31.5 % Low 36.3-47.1 [facility] Comment on above: Performed By: #### T ROPI #### [address] [place], [facility] [employer]: Daniella Lott MD Hemoglobin (Bld) [Mass/Vol] 10.1 g/dL Low 11.9-15.1 [facility] Comment on above: Performed By: #### T ROPI #### [address] [place], [place] [phone] [employer]: Daniella Lott MD Immature granulocytes/100 WBC (Bld) 0 % Normal 0 [facility] Comment on above: Performed By: #### T ROPI #### [facility] [address] [place], [place] [phone] [employer]: Daniella Lott MD Lymphocytes (Bld) [#/Vol] 1.53 10*3/uL Normal 1.10-3.70 [facility] Comment on above: Performed By: #### T ROPI #### [facility] [address] [place] [address] Dr. [place], [facility] [employer]: Daniella Lott MD Lymphocytes/100 WBC (Bld) 27 % Normal 24-43 [facility] Comment on above: Performed By: #### T ROPI #### [address] [place], [facility] [employer]: Daniella Lott MD MCH (RBC) [Entitic mass] 31.6 pg Normal 25.2-33.5 [facility] Comment on above: Performed By: #### T ROPI #### [address] [place], [facility] [employer]: Daniella Lott MD MCHC (RBC) [Mass/Vol] 32.1 g/dL Normal 28.4-34.8 [facility] Comment on above: Performed By: #### T ROPI #### [facility] [address] [place] [address] Dr. [place], [facility] [employer]: Daniella Lott MD MCV (RBC) [Entitic vol] 98.4 fL Normal 82.6-102.9 [facility] Comment on above: Performed By: #### T ROPI #### [address] [place], [place] [id number] [employer]: Daniella Lott MD Monocytes (Bld) [#/Vol] 0.65 10*3/uL Normal 0.10-1.20 [facility] Comment on above: Performed By: #### T ROPI #### [facility] [address] [place], [place] [phone] [employer]: Daniella Lott MD Monocytes/100 WBC (Bld) 11 % Normal 3-12 [facility] Comment on above: Performed By: #### T ROPI #### [facility] [address] [place], [facility]83 [employer]: Daniella Lott MD Neutrophil (Seg) 60 % Normal 36-65 [facility] Comment on above: Performed By: #### T ROPI #### [address] [place], [facility]83 [employer]: Daniella Lott MD NRBC Automated 0.0 per 100 WBC Normal 0.0 [facility] Comment on above: Performed By: #### T ROPI #### [address] [place], [place] [phone] [employer]: Daniella Lott MD Platelet mean volume (Bld) [Entitic vol] 10.1 fL Normal 8.1-13.5 [facility] Comment on above: Performed By: #### T ROPI #### [address] [place], [facility]83 [employer]: Daniella Lott MD Platelets (Bld) [#/Vol] 138 10*3/uL Normal 138-453 [facility] Comment on above: Performed By: #### T ROPI #### [address] [place], [facility]83 [employer]: Daniella Lott MD RBC (Bld) [#/Vol] 3.20 10*6/uL Low 3.95-5.11 [facility] Comment on above: Performed By: #### T ROPI #### [address] [place], [facility]83 [employer]: Daniella Lott MD WBC (Bld) [#/Vol] 5.8 10*3/uL Normal 3.5-11.3 [facility] Comment on above: Performed By: #### T ROPI #### [facility] [address] [place], [place] [phone] [employer]: Daniella Lott MD Comp Metabolic Pr/rfx MGon 0 - Albumin [Mass/Vol] 3.1 g/dL Low 3.5-5.2 [facility] Comment on above: Performed By: #### T ROPI #### [facility] [address] [place], [place] [phone] [employer]: Daniella Lott MD Albumin/Glob Ratio 1.3 Normal 1.0-2.5 [facility] Comment on above: Performed By: #### T ROPI #### [facility] [address] [place], [place] [address]83 [employer]: Daniella Lott MD Alkaline Phos 58 U/L Normal 35-104 [facility] Comment on above: Performed By: #### T ROPI #### [facility] [address] [place], [place] [address]83 [employer]: Daniella Lott MD ALT [Catalytic activity/Vol] 5 U/L Normal 5-33 [facility] Comment on above: Performed By: #### T ROPI #### [facility] [address] [place], [place] [address]83 [employer]: Daniella Lott MD Anion gap [Moles/Vol] 10 mmol/L Normal 9-17 [facility] Comment on above: Performed By: #### T ROPI #### [facility] [address] [place], [place] 9387383 [employer]: Daniella Lott MD AST [Catalytic activity/Vol] 13 U/L Normal <32 [facility] Comment on above: Performed By: #### T ROPI #### [facility] [address] [place], [place] [phone] [employer]: Daniella Lott MD Bilirubin [Mass/Vol] 0.6 mg/dL Normal 0.3-1.2 [facility] Comment on above: Performed By: #### T ROPI #### [facility] [address] [place], [place] 94[address]83 [employer]: Daniella Lott MD BUN/CRE Ratio 18 Normal 9-20 [facility] Comment on above: Performed By: #### T ROPI #### [facility] [address] [place], [place] [address]83 [employer]: Daniella Lott MD Calcium [Mass/Vol] 8.0 mg/dL Low 8.6-10.4 [facility] Comment on above: Performed By: #### T ROPI #### [facility] [address] [place], [place] [phone] [employer]: Daniella Lott MD Chloride [Moles/Vol] 104 mmol/L Normal 98-107 [facility] Comment on above: Performed By: #### T ROPI #### [facility] [address] [place], [place] [address]783 [employer]: Daniella Lott MD CO2 [Moles/Vol] 22 mmol/L Normal 20-31 [facility] Comment on above: Performed By: #### T ROPI #### [facility] [address] [place], [place] [phone] [employer]: Daniella Lott MD Creatinine [Mass/Vol] 1.3 mg/dL High 0.5-0.9 [facility] Comment on above: Performed By: #### T ROPI #### [facility] [address] [place], [place] 116[address]383 [employer]: Daniella Lott MD GFR/1.73 sq M.predicted among non-blacks MDRD (S/P/Bld) [Vol rate/Area] 44 mL/min/{1.73_m2} Low >60 [facility] Comment on above: Result Comment: These results [...] secretion. Performed By: #### T ROPI #### [facility] [address] [place] [address] [place] [address] [employer]: Daniella Lott MD Glucose [Mass/Vol] 83 mg/dL Normal 70-99 [facility] Comment on above: Performed By: #### T ROPI #### [facility] [address] [place] [address] [place] [address] [employer]: Daniella Lott MD Potassium [Moles/Vol] 4.1 mmol/L Normal 3.7-5.3 [facility] Comment on above: Performed By: #### T ROPI #### [address] [place] [address] [employer]: Daniella Lott MD Protein [Mass/Vol] 5.4 g/dL Low 6.4-8.3 [facility] Comment on above: Performed By: #### T ROPI #### [facility] [address] [place] [address] [place] [address] [employer]: Daniella Lott MD Sodium [Moles/Vol] 136 mmol/L Normal 135-144 [facility] Comment on above: Performed By: #### T ROPI #### [facility] [address] [place] [address] [place] [address] [employer]: Daniella Lott MD Urea nitrogen [Mass/Vol] 23 mg/dL Normal 8-23 [facility] Comment on above: Performed By: #### T [facility] #### [facility] [address] [place] [address] [employer]: Daniella Lott MD Comprehensive Metabolic Pane l w/ Reflex to MGon 05-18-2023 Albumin [Mass/Vol] 3.1 g/dL Low 3.5 - 5.2 g/dL [facility] Albumin/Globulin [Mass ratio] 1.3 {ratio} 1.0 - 2.5 [facility] ALP [Catalytic activity/Vol] 58 U/L 35 - 104 U/L [facility] ALT [Catalytic activity/Vol] 5 U/L 5 - 33 U/L [facility] Anion gap [Moles/Vol] 10 mmol/L 9 - 17 mmol/L [facility] AST [Catalytic activity/Vol] 13 U/L NINF - 32 U/L [facility] Bilirubin [Mass/Vol] 0.6 mg/dL 0.3 - 1 .2 mg/dL [facility] Calcium [Mass/Vol] 8.0 mg/dL Low 8.6 - 10. 4 mg/dL [facility] Chloride [Moles/Vol] 104 mmol/L 98 - 10 7 mmol/L [facility] CO2 [Moles/Vol] 22 mmol/L 20 - 31 mmol/L [facility] Creatinine [Mass/Vol] 1.3 mg/dL High 0.5 - 0.9 mg/dL [facility] GFR/1.73 sq M.predicted MDRD (S/P/Bld) [Vol rate/Area] 44 mL/min/{1.73_m2} Low - PINF [facility] Comment on above: These [...] [Mass/Vol] 83 mg/dL 70 - 99 mg/dL [facility] Interpretation and review of laboratory results Abnormal [facility] Potassium [Moles/Vol] 4.1 mmol/L 3.7 - 5.3 mmol/L [facility] Protein [Mass/Vol] 5.4 g/dL Low 6.4 - 8.3 g/dL [facility] Sodium [Moles/Vol] 136 mmol/L 135 - 144 mmol/L [employer] [facility] Urea nitrogen [Mass/Vol] 23 mg/dL 8 - 23 mg/dL [facility] Urea nitrogen/Creatinine [Mass ratio] 18 mg/mg 9 - 20 [facility] 12 LeadOrdered By: Adam Silvestre on 05-18-2023 Atrial Rate 58 BPM [facility] Work Phone: P Dickens 69 degrees [employer] Work Phone: P-R Interval 140 ms [facility] Work Phone: Q-T Interval 418 ms [facility] Work Phone: QRS Duration 82 ms [facility] Work Phone: QTc Calculation (Bazett) 410 ms [facility] Work Phone: R Dickens 43 degrees [facility] Work Phone: T Dickens 54 degrees [facility] Work Phone: Ventricular Rate 58 BPM [employer] Work Phone: [facility] Work Phone: EKG 12 Leadon 05-18-2023 Sinus bradycardia Otherwise normal ECG No previous ECGs available Confirmed by LAVERNE SILVESTRE ([id number]) on 05/18/2023 1:01:51 AM [facility] Laverne Silvestre MD - 05/18/2023 Sinus bradycardia Otherwise normal ECG No previous ECGs available Confirmed by LAVERNE SILVESTRE ([id number]) on 05/18/2023 1:01:51 AM [facility] Atrial Rate 75 BPM [facility] P Dickens 91 degrees [facility] P-R Interval 154 ms [facility] Q-T Interval 380 ms [facility] QRS Duration 86 ms [facility] QTc Calculation (Bazett) 424 ms [facility] R Dickens 38 degrees [facility] T Dickens 50 degrees [facility] Ventricular Rate 75 BPM [facility] Normal sinus rhythm Normal ECG When compared with ECG of 17-MAY-2023 11:52, (unconfirmed) No significant change was found Confirmed by LAVERNE SILVESTRE ([id number]) on 05/18/2023 12:57:09 AM [facility] Laverne Silvestre MD - 05/18/2023 Normal sinus rhythm Normal ECG When compared with ECG of 17-MAY-2023 11:52, (unconfirmed) No significant change was found Confirmed by LAVERNE SILVESTRE ([id number]) on 05/18/2023 12:57:09 AM [facility] EKG Rhythm Stripon [facility] CBC with Auto Differentialon 05-17-2023 Basophils (Bld) [#/Vol] 0.03 10*3/uL [facility] Immature granulocytes (Bld) [#/Vol] [facility] Interpretation and review of laboratory results Abnormal [facility] Lymphocytes/100 WBC (Bld) 1.23 % [facility] Monocytes/100 WBC (Bld) 0.57 % [facility] Neutrophils/100 WBC (Bld) 75 % High 36 - 65 % [facility] Nucleated RBC/100 WBC (Bld) [Ratio] 0.0 % 0.0 per 100 WBC [facility] Segmented neutrophils/100 WBC (Bld) 5.64 % [facility] WBC other (Bld) [#/Vol] 7.6 [facility] CBC with Diffon 05-17-2023 Abs. Basophil 0.03 k/uL Normal 0.00-0.20 [facility] Comment on above: Performed By: #### T ROPI #### [facility] [address] [place] [address] [employer]: Daniella Lott MD Abs.Imm.Granulocyte <0.03 Normal 0.00-0.30 [facility] Comment on above: Performed By: #### T ROPI #### [facility] [address] [place], [place] [address] [employer]: Daniella Lott MD Abs.Neutrophil (Seg) 5.64 k/uL Normal 1.50-8.10 [facility] Comment on above: Performed By: #### T ROPI #### [facility] [address] [place], [place] [address] [employer]: Daniella Lott MD Lymphocytes (Bld) [#/Vol] 1.23 10*3/uL Normal 1.10-3.70 [facility] Comment on above: Performed By: #### T ROPI #### [facility] [address] [place], [place] [phone] [employer]: Daniella Lott MD Monocytes (Bld) [#/Vol] 0.57 10*3/uL Normal 0.10-1.20 [facility] Comment on above: Performed By: #### T ROPI #### [facility] [address] [place] [address] [employer] Finish: Daniella Lott MD Neutrophil (Seg) 75 % High 36-65 [facility] Comment on above: Performed By: #### T ROPI #### [facility] [address] [place], [place] 2351483 [employer]: Daniella Lott MD NRBC Automated 0.0 per 100 WBC Normal 0.0 [facility] Comment on above: Performed By: #### T ROPI #### [address] [place], [facility] [employer]: Daniella Lott MD WBC (Bld) [#/Vol] 7.6 10*3/uL Normal 3.5-11.3 [facility] Comment on above: Performed By: #### T ROPI #### [address] [place] [phone] [employer]: Daniella Lott MD Basophils/100 WBC (Bld) 0 % Normal 0-2 [facility] Comment on above: Performed By: #### T ROPI #### [address] [place] [phone] [employer]: Daniella Lott MD Eosinophils (Bld) [#/Vol] 0.11 10*3/uL Normal 0.00-0.44 [facility] Comment on above: Performed By: #### T ROPI #### [address] [place] [phone] [employer]: Daniella Lott MD Eosinophils/100 WBC (Bld) 1 % Normal 1-4 [facility] Comment on above: Performed By: #### T ROPI #### [address] [place] [address] [employer]: Daniella Lott MD Erythrocyte distribution width (RBC) [Ratio] 13.7 % Normal 11.8-14.4 [facility] Comment on above: Performed By: #### T ROPI #### [address] [place] [phone] [employer]: Daniella Lott MD Hematocrit (Bld) [Volume fraction] 38.1 % Normal 36.3-47.1 [facility] Comment on above: Performed By: #### T ROPI #### [address] [place], [place] 2242883 [employer]: Daniella Lott MD Hemoglobin (Bld) [Mass/Vol] 11.8 g/dL Low 11.9-15.1 [facility] Comment on above: Performed By: #### T ROPI #### [address] [place], [place] [address] [employer]: Daniella Lott MD Immature granulocytes/100 WBC (Bld) 0 % Normal 0 [facility] Comment on above: Performed By: #### T ROPI #### [address] [place] [id number] [employer]: Daniella Lott MD Lymphocytes/100 WBC (Bld) 16 % Low 24-43 [facility] Comment on above: Performed By: #### T ROPI #### [address] [place], [facility] [employer]: Daniella Lott MD MCH (RBC) [Entitic mass] 30.6 pg Normal 25.2-33.5 [facility] Comment on above: Performed By: #### T ROPI #### [address] [place], [place] [phone] [employer]: Daniella Lott MD MCHC (RBC) [Mass/Vol] 31.0 g/dL Normal 28.4-34.8 [facility] Comment on above: Performed By: #### T ROPI #### [address] [place], [place] [id number] Painter Interior Finish: Daniella Lott MD MCV (RBC) [Entitic vol] 99.0 fL Normal 82.6-102.9 [facility] Comment on above: Performed By: #### T ROPI #### [address] [place] [address] Painter Interior Finish: Daniella Lott MD Monocytes/100 WBC (Bld) 8 % Normal 3-12 [facility] Comment on above: Performed By: #### T ROPI #### [address] [place], [place] [id number] Painter Interior Finish: Daniella Lott MD Platelet mean volume (Bld) [Entitic vol] 9.5 fL Normal 8.1-13.5 [facility] Comment on above: Performed By: #### T ROPI #### [address] [place], [place] [id number] Painter Interior Finish: Daniella Lott MD Platelets (Bld) [#/Vol] 169 10*3/uL Normal 138-453 [facility] Comment on above: Performed By: #### T KUMARI #### [address] [place] [address] Painter Interior Finish: Daniella Lott MD RBC (Bld) [#/Vol] 3.85 10*6/uL Low 3.95-5.11 [facility] Comment on above: Performed By: #### T ROPI #### [address] [place] [address] Painter Interior Finish: Daniella Lott MD CTA CHEST ABDOMEN PELVIS W C [facility] 05-17-2023 CTA CHEST ABDOMEN PELVIS W CONTRAST [...] PROVIDED HISTORY: chest pain, into back, previous [place], and also known PVD with aortic stent TECHNOLOGIST PROVIDED HISTORY: chest pain, into back, previous [place], and also known PVD with aortic stent [...] obstruction. No acute infective process. Sigmoid diverticulosis. Peritoneum/Retroperito neum: No free fluid or lymphadenopathy. Bones/Soft Tissues: [...] Faisal Treviño MD 05/17/23 Final result Normal [facility] CTA Chest vessels and Abdomi nal vessels [...] PROVIDED HISTORY: chest pain, into back, previous [place], and also known PVD with aortic stent TECHNOLOGIST PROVIDED HISTORY: chest pain, into back, previous [place], and also known PVD with aortic stent [...] obstruction. No acute infective process. Sigmoid diverticulosis. Peritoneum/Retroperito neum: No free fluid or lymphadenopathy. Bones/Soft Tissues: [...] no acute process. [facility] Faisal Julian MD - 05/17/2023 EXAMINATION: [...] PROVIDED HISTORY: chest pain, into back, previous [place], and also known PVD with aortic stent TECHNOLOGIST PROVIDED HISTORY: chest pain, into back, previous [place], and also known PVD with aortic stent [...] obstruction. No acute infective process. Sigmoid diverticulosis. Peritoneum/Retroperito neum: No free fluid or lymphadenopathy. Bones/Soft Tissues: [...] Further evaluation with pelvic ultrasound is recommended. [facility] Radiology Study observation (narrative) [facility] CTA Chest vessels and Abdomi nal vessels and Pelvis vessels W contrast IVOrdered By: Faisal Treviño on 05-17-2023 [facility] Work Phone: Comp Metabolic Profon 2023 Albumin [Mass/Vol] 3.8 g/dL Normal 3.5-5.2 [facility] Comment on above: Performed By: #### T BK #### [facility] [address] [place] [address] Painter Interior Finish: Daniella Lott MD Albumin/Glob Ratio 1.4 Normal 1.0-2.5 [facility] Comment on above: Performed By: #### T KUMARI #### [facility] [address] [place] [address] Painter Interior Finish: Daniella Lott MD Alkaline Phos 74 U/L Normal 35-104 [facility] Comment on above: Performed By: #### T KUMARI #### [facility] [address] [place], [place] [phone] Painter Interior Finish: Daniella Lott MD ALT [Catalytic activity/Vol] 11 U/L Normal 5-33 [facility] Comment on above: Performed By: #### T ROPI #### [facility] [address] [place], [place] [id number] Painter Interior Finish: Daniella Lott MD Anion gap [Moles/Vol] 9 mmol/L Normal 9-17 [facility] Comment on above: Performed By: #### T ROPI #### [facility] [address] [place], [place] [phone] Painter Interior Finish: Daniella Lott MD AST [Catalytic activity/Vol] 18 U/L Normal <32 [facility] Comment on above: Performed By: #### T ROPI #### [facility] [address] [place], [place] [address] Painter Interior Finish: Daniella Lott MD Bilirubin [Mass/Vol] 0.5 mg/dL Normal 0.3-1.2 [facility] Comment on above: Performed By: #### T ROPI #### [facility] [address] [place], [place] [phone] Painter Interior Finish: Daniella Lott MD BUN/CRE Ratio 20 Normal 9-20 [facility] Comment on above: Performed By: #### T ROPI #### [facility] [address] [place], [place] [phone] Painter Interior Finish: Daniella Lott MD Calcium [Mass/Vol] 8.7 mg/dL Normal 8.6-10.4 [facility] Comment on above: Performed By: #### T ROPI #### [facility] [address] [place], [place] [phone] Painter Interior Finish: Daniella Lott MD Chloride [Moles/Vol] 108 mmol/L High 98-107 [facility] Comment on above: Performed By: #### T ROPI #### [facility] [address] [place] [address] Painter Interior Finish: Daniella Lott MD CO2 [Moles/Vol] 25 mmol/L Normal 20-31 [facility] Comment on above: Performed By: #### T ROPI #### [facility] [address] [place] [address] Painter Interior Finish: Daniella Lott MD Creatinine [Mass/Vol] 1.3 mg/dL High 0.5-0.9 [facility] Comment on above: Performed By: #### T ROPI #### [facility] [address] [place] [address] Painter Interior Finish: Daniella Lott MD GFR/1.73 sq M.predicted among non-blacks MDRD (S/P/Bld) [Vol rate/Area] 44 mL/min/{1.73_m2} Low >60 [facility] Comment on above: Result Comment: These results [...] secretion. Performed By: #### T ROPI #### [facility] [address] [place] [address] Painter Interior Finish: Daniella Lott MD Glucose [Mass/Vol] 99 mg/dL Normal 70-99 [facility] Comment on above: Performed By: #### T ROPI #### [facility] [address] [place] [address] Painter Interior Finish: Daniella Lott MD Potassium [Moles/Vol] 4.5 mmol/L Normal 3.7-5.3 [facility] Comment on above: Performed By: #### T ROPI #### [facility] [address] [place] [address] Painter Interior Finish: Daniella Lott MD Protein [Mass/Vol] 6.6 g/dL Normal 6.4-8.3 [facility] Comment on above: Performed By: #### T ROPI #### [facility] [address] [place] [address] Painter Interior Finish: Daniella Lott MD Sodium [Moles/Vol] 142 mmol/L Normal 135-144 [facility] Comment on above: Performed By: #### T ROPI #### [facility] [address] [place] [address] Painter Interior Finish: Daniella Lott MD Urea nitrogen [Mass/Vol] 26 mg/dL High 8-23 [facility] Comment on above: Performed By: #### T ROPI #### [facility] [address] [place] [address] Painter Interior Finish: Daniella Lott MD Comprehensive Metabolic Pane [facility] 05-17-2023 Albumin [Mass/Vol] 3.8 g/dL 3.5 - 5.2 g/dL [facility] Albumin/Globulin [Mass ratio] 1.4 {ratio} 1.0 - 2.5 [facility] ALP [Catalytic activity/Vol] 74 U/L 35 - 104 U/L [facility] ALT [Catalytic activity/Vol] 11 U/L 5 - 33 U/L [facility] Anion gap [Moles/Vol] 9 mmol/L 9 - 17 mmol/L [facility] AST [Catalytic activity/Vol] 18 U/L NINF - 32 U/L [facility] Bilirubin [Mass/Vol] 0.5 mg/dL 0.3 - 1 .2 mg/dL [facility] Calcium [Mass/Vol] 8.7 mg/dL 8.6 - 10. 4 mg/dL [facility] Chloride [Moles/Vol] 108 mmol/L High 98 - 10 7 mmol/L [facility] CO2 [Moles/Vol] 25 mmol/L 20 - 31 mmol/L [facility] Creatinine [Mass/Vol] 1.3 mg/dL High 0.5 - 0.9 mg/dL [facility] GFR/1.73 sq M.predicted MDRD (S/P/Bld) [Vol rate/Area] 44 mL/min/{1.73_m2} Low - PINF [facility] Comment on above: These [...] [Mass/Vol] 99 mg/dL 70 - 99 mg/dL [facility] Interpretation and review of laboratory results Abnormal [facility] Potassium [Moles/Vol] 4.5 mmol/L 3.7 - 5.3 mmol/L [facility] Protein [Mass/Vol] 6.6 g/dL 6.4 - 8.3 g/dL [facility] Sodium [Moles/Vol] 142 mmol/L 135 - 144 mmol/L [facility] Urea nitrogen [Mass/Vol] 26 mg/dL High 8 - 23 mg/dL [facility] Urea nitrogen/Creatinine [Mass ratio] 20 mg/mg 9 - 20 [facility] Microscopic Urinalysison Bacteria LM Ql (Urine sed) 2+ Abnormal None [facility] Epithelial cells LM.HPF (Urine sed) [#/Area] 5 TO 10 [facility] Interpretation and review of laboratory results Abnormal [facility] Mucus Ql (Urine sed) TRACE Abnormal None [facility] RBC LM.HPF (Urine sed) [#/Area] 0 TO 2 [facility] Renal Epithelial, UA 0 TO 2 0 /HPF [facility] WBC LM.HPF (Urine sed) [#/Area] 5 TO 10 [facility] Portable XR Chest AP single viewon 05-17-2023 [...] left mid lung, granuloma versus other nodule. [facility] Radiology Study observation (narrative) [facility] Portable XR Chest AP single viewOrdered By: Dacia Linton on 05-17-2023 [facility] Work Phone: Troponinon 05-17-2023 Troponin, High Sens 18 ng/L High 0-14 [facility] Comment on above: Result Comment: High Sensitivity Troponin values cannot be compared with other Troponin methodologies. Performed By: #### T JP BOURGEOIS, CDP #### [facility] [address] [place], [place] [phone] Painter Interior Finish: Daniella Lott MD Interpretation and review of laboratory results Abnormal [facility] Troponin I.cardiac High sensitivity method [Mass/Vol] 18 ng/L High 0 - 14 ng/L [facility] Comment on above: High Sensitivity Tro ponin values cannot be compared with other Troponin methodologies. [facility] Troponin, High Sens 19 ng/L High 0-14 [facility] Comment on above: Result Comment: High Sensitivity Troponin values cannot be compared with other Troponin methodologies. Performed By: #### T ROPI #### [facility] [address] [place] [address] Dr. [place], [place] [phone] Painter Interior Finish: Daniella Lott MD Troponin, High Sens 19 ng/L High 0-14 [facility] Comment on above: Result Comment: High Sensitivity Troponin values cannot be compared with other Troponin methodologies. Performed By: #### T ROPI #### [facility] [address] [place] [address] Dr. [place], [place] [phone] Painter Interior Finish: Daniella Lott MD Interpretation and review of laboratory results Abnormal [facility] Troponin I.cardiac High sensitivity method [Mass/Vol] 19 ng/L High 0 - 14 ng/L [facility] Comment on above: High Sensitivity Tro ponin values cannot be compared with other Troponin methodologies. [facility] Interpretation and review of laboratory results Abnormal [facility] Troponin I.cardiac High sensitivity method [Mass/Vol] 19 ng/L High 0 - 14 ng/L [facility] Comment on above: High Sensitivity Tro ponin values cannot be compared with other Troponin methodologies. [facility] UA w/Reflex Cultureon 2023 Bilirubin, SemiQt,Ur Negative Normal NEG [facility] Comment on above: Performed By: #### T ROPI #### [facility] [address] [place] [address] [place] [address] Painter Interior Finish: Daniella Lott MD Blood, Urine Negative Normal NEG [facility] Comment on above: Performed By: #### T ROPI #### [facility] [address] [place], [place] [phone] Painter Interior Finish: Daniella Lott MD Glucose Ql (U) Negative Normal NEG [facility] Comment on above: Performed By: #### T ROPI #### [facility] [address] [place] [address] Dr. [place], [place] [phone] Painter Interior Finish: Daniella Lott MD Ketones Ql (U) Negative Normal NEG [facility] Comment on above: Performed By: #### T ROPI #### [facility] [address] [place], [facility] Painter Interior Finish: Daniella Lott MD Nitrite,Ur Negative Normal NEG [facility] Comment on above: Performed By: #### T ROPI #### [facility]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 Yañez SERVICE CENTER SPECIALIST Work Phone[facility] 05-17-2023 11:30-0400 Systolic blood pressure 144 mm[Hg] Eden Yañez SERVICE CENTER SPECIALIST Work Phone: [facility] 05-17-2023 11:25-0400 Diastolic blood pressure 76 mm[Hg] Eden Yañez SERVICE CENTER SPECIALIST Work Phone: [facility] 05-17-2023 11:25-0400 Heart rate 61 /min Eden Yañez SERVICE CENTER SPECIALIST Work Phone: [facility] 05-17-2023 11:25-0400 Inhaled oxygen concentration 32 % Eden Yañez SERVICE CENTER SPECIALIST Work Phone: [facility] 05-17-2023 11:25-0400 Inhaled oxygen flow rate 3 L/min Eden Yañez SERVICE CENTER SPECIALIST Work Phone: [facility] 05-17-2023 11:25-0400 SaO2% (BldA) [Mass fraction] 97 % Eden Yañez SERVICE CENTER SPECIALIST Work Phone: [facility] 05-17-2023 11:25-0400 Systolic blood pressure 149 mm[Hg] Eden Yañez SERVICE CENTER SPECIALIST Work Phone: [facility] 05-17-2023 11:20-0400 Diastolic blood pressure 77 mm[Hg] Eden Yañez SERVICE CENTER SPECIALIST Work Phone: [facility] 05-17-2023 11:20-0400 Heart rate 65 /min Eden Yañez SERVICE CENTER SPECIALIST Work Phone: [facility] 05-17-2023 11:20-0400 Systolic blood pressure 154 mm[Hg] Eden Yañez SERVICE CENTER SPECIALIST Work Phone: [facility] 05-17-2023 11:05-0400 Diastolic blood pressure 79 mm[Hg] Eden Yañez CNP Work Phone: [facility] Work Phone: 05-17-2023 11:05-0400 Systolic blood pressure 141 mm[Hg] Eden Yañez SERVICE CENTER SPECIALIST Work Phone: [facility] Work Phone: 05-17-2023 10:48-0400 Body height 154.94 cm Eden Yañez SERVICE CENTER SPECIALIST Work Phone: [facility] Work Phone: 05-17-2023 10:48-0400 Body mass index (BMI) [Ratio] 25.2 kg/m2 Eden Yañez CNP Work Phone: [facility] Work Phone: 05-17-2023 10:48-0400 Body surface area Derived from formula 1.6 m2 Eden Yañez CNP Work Phone: [facility] Work Phone: 05-17-2023 10:48-0400 Body weight 60.51 kg Eden Yañez CNP Work Phone: [facility] Work Phone: 05-17-2023 10:48-0400 Diastolic blood pressure 80 mm[Hg] Eden Otilio SERVICE CENTER SPECIALIST Work Phone: [facility] Work Phone: 05-17-2023 10:48-0400 Heart rate 69 /min Eden Yañez CNP Work Phone: [facility] Work Phone: 05-17-2023 10:48-0400 SaO2% (BldA) [Mass fraction] 98 % Eden Yañez CNP Work Phone: [facility] Work Phone: 05-17-2023 10:48-0400 Systolic blood pressure 148 mm[Hg] Eden Yañez CNP Work Phone: [facility] Work Phone: 05-17-2023 10:25-0400 Diastolic blood pressure 75 mm[Hg] Eden Otilio SERVICE CENTER SPECIALIST Work Phone: [facility] 05-17-2023 10:25-0400 Systolic blood pressure 124 mm[Hg] Eden Otilio SERVICE CENTER SPECIALIST Work Phone: [facility] 01-28-2023 10:22-0500 Body weight 60.78 kg Ayo Deal MD Work Phone: [facility] 01-28-2023 10:22-0500 Diastolic blood pressure 74 mm[Hg] Ayo Deal MD Work Phone: [facility] 01-28-2023 10:22-0500 Heart rate 64 /min Ayo Deal MD Work Phone: [facility] 01-28-2023 10:22-0500 Systolic blood pressure 122 mm[Hg] Ayo Deal MD Work Phone: [facility] 01-14-2023 11:39-0500 Body height 154.9 cm Eileen Goins MD Work Phone: [facility] 01-14-2023 11:39-0500 Body weight 58.51 kg Eileen Goins MD Work Phone: [facility] 01-14-2023 11:39-0500 Diastolic blood pressure 63 mm[Hg] Eileen Goins MD Work Phone: [facility] 01-14-2023 11:39-0500 Heart rate 60 /min Eileen Goins MD Work Phone: [facility] 01-14-2023 11:39-0500 SaO2% (BldA) [Mass fraction] 94 % Eileen Goins MD Work Phone: [facility] 01-14-2023 11:39-0500 Systolic blood pressure 124 mm[Hg] Eileen Goins MD Work Phone: [facility] 11-15-2022 09:55-0400 Body height 154.9 cm Risa Austinland HARDWARE ENGINEER.SERVICE CENTER SPECIALIST Work Phone: [facility] 11-15-2022 09:55-0400 Body weight 60.78 kg Risa Austinland HARDWARE ENGINEER.SERVICE CENTER SPECIALIST Work Phone: [facility] 11-15-2022 09:55-0400 Diastolic blood pressure 78 mm[Hg] Risa Austinland HARDWARE ENGINEER.SERVICE CENTER SPECIALIST Work Phone: [facility] 11-15-2022 09:55-0400 Heart rate 63 /min Risa Timmy HARDWARE ENGINEER.SERVICE CENTER SPECIALIST Work Phone: [facility] 11-15-2022 09:55-0400 Systolic blood pressure 135 mm[Hg] Risa Timmy HARDWARE ENGINEER.SERVICE CENTER SPECIALIST Work Phone: [facility] 10-21-2022 10:09-0400 Body height 154.9 cm Lily Terence HARDWARE ENGINEER.C GARAGE LABORER Work Phone: [facility] 10-21-2022 10:09-0400 Body weight 61.69 kg Lily Terence HARDWARE ENGINEER.C GARAGE LABORER Work Phone: [facility] 10-21-2022 10:09-0400 Diastolic blood pressure 83 mm[Hg] Lily Terence HARDWARE ENGINEER.SERVICE CENTER SPECIALIST Work Phone: [facility] 10-21-2022 10:09-0400 Heart rate 66 /min Lily Terence HARDWARE ENGINEER.C GARAGE LABORER Work Phone: [facility] 10-21-2022 10:09-0400 Systolic blood pressure 144 mm[Hg] Lily Terence HARDWARE ENGINEER.SERVICE CENTER SPECIALIST Work Phone: [facility] 07-28-2022 14:26-0400 Body height 154.9 cm Ayo Deal MD Work Phone: [facility] 07-28-2022 14:26-0400 Body weight 61.33 kg Ayo Deal MD Work Phone: [facility] 07-28-2022 14:26-0400 Diastolic blood pressure 82 mm[Hg] Ayo Deal MD Work Phone: [facility] 07-28-2022 14:26-0400 Heart rate 57 /min Ayo Deal MD Work Phone: [facility] 07-28-2022 14:26-0400 Systolic blood pressure 136 mm[Hg] Ayo Deal MD Work Phone: [facility] 01-26-2022 14:43-0500 Body height 154.9 cm Ayo Deal MD Work Phone: [facility] 01-26-2022 14:43-0500 Body weight 62.87 kg Ayo Deal MD Work Phone: [facility] 01-26-2022 14:43-0500 Diastolic blood pressure 58 mm[Hg] Ayo Deal MD Work Phone: [facility] 01-26-2022 14:43-0500 Heart rate 68 /min Ayo Deal MD Work Phone: [facility] 01-26-2022 14:43-0500 Systolic blood pressure 104 mm[Hg] Ayo Deal MD Work Phone: [facility] 12-09-2021 14:35-0400 Diastolic blood pressure 71 mm[Hg] Chuck Tucker MD Work Phone: [facility] 12-09-2021 14:35-0400 Heart rate 57 /min Chuck Tucker MD Work Phone: [facility] 12-09-2021 14:35-0400 Systolic blood pressure 150 mm[Hg] Chuck Tucker MD Work Phone: [facility] 08-11-2021 12:52-0400 Body weight 65.77 kg Rupesh Gu DO Work Phone: [facility] 08-11-2021 12:52-0400 Diastolic blood pressure 70 mm[Hg] Rupesh Gu DO Work Phone: [facility] 08-11-2021 12:52-0400 Heart rate 54 /min Rupesh Gu DO Work Phone: [facility] 08-11-2021 12:52-0400 SaO2% (BldA) [Mass fraction] 96 % Rupesh Gu DO Work Phone: [facility] 08-11-2021 12:52-0400 Systolic blood pressure 130 mm[Hg] Rupesh Gu DO Work Phone: [facility] Encounters Encounter Date Encounter Type Care Provider Facility Start: 03-12-2024 End: 03-12-2024 ambulatory Rogelio Stokes MD Work Phone: Cardiology Start: 03-12-2024 End: 03-12-2024 Telephone encounter Akila Calabrese APRN.CNP Work Phone: Cardiology Comment on above: Patient Update Start: 03-06-2024 End: 03-06-2024 Patient encounter procedure Akila Calabrese APRN.CNP Work Phone: Cardiology Comment on above: PAF (paroxysmal atrial fibrillation) (HC C) (Primary Dx); 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 Start: 03-06-2024 End: 03-06-2024 ambulatory [facility] Facility:[facility] Start: 03-06-2024 End: 03-06-2024 ambulatory [facility] Facility:[facility] Start: 03-06-2024 End: 03-06-2024 Patient encounter procedure Transesophageal Echo Card Main Cardiology Comment on above: S/P transesophageal echocardiogram (HAFSA) (Primary Dx) Start: 03-05-2024 End: 03-05-2024 Telephone encounter Kiera Monroy RN Cardiology Comment on above: Reminder Call (hafsa) EKG abnormalities (P rimary Dx) Start: 02-16-2024 End: 02-16-2024 Patient encounter procedure Chuck Tucker MD Work Phone: Vascular Surgery Comment on above: Aortoiliac occlusive disease (HCC) (Prim carole Dx); PVD (peripheral vascular disease) (HCC) Start: 02-16-2024 End: 02-16-2024 ambulatory [facility] Facility:[facility] Start: 02-15-2024 End: 02-15-2024 Refill Kayla Monterroso MD Work Phone: Internal Medicine Comment on above: Refill Request Start: 02-08-2024 End: 02-08-2024 ambulatory KAUSHIK LAGOS Facility:[facility] Start: 02-07-2024 End: 02-07-2024 Telephone encounter Kaushik Lagos MD Work Phone: General Surgery Comment on above: Patient Update Start: 02-06-2024 End: 02-06-2024 Admission to establishment P[facility] 2 Work Phone: Pre Anesthesia Start: 02-06-2024 End: 02-06-2024 ambulatory KAYLA Millard KRISS Facility:[facility] Start: 02-06-2024 End: 02-06-2024 Anesthesia consultation Pac 2 Work Phone: Pre Anesthesia Comment on above: Pre-op examination (Primary Dx); Hypertension, unspecified type; Mixed hyperlipidemia; Coronary artery disease involving [place] coronary artery of [place] heart without angina pectoris; PAF (paroxysmal atrial fibrillation) ([facility]); Atherosclerotic peripheral vascular disease with intermittent claudication ([facility]); Former smoker; CKD (chronic kidney disease) stage 4, GFR 15-29 ml/min ([facility]); Secondary renal hyperparathyroidism ([facility]); Non-rheumatic mitral regurgitation; History of DVT (deep vein thrombosis) Start: 02-06-2024 Encounter for other preprocedural examination KAYLA MONTERROSO [facility] Start: 02-06-2024 End: 02-06-2024 Preprocedural examination done Pac 2 Work Phone: [facility] Work Phone: Start: 02-06-2024 End: 02-06-2024 Telephone encounter Elida Arnold APRN.CNP Work Phone: Pre Anesthesia Comment on above: Upcoming Surgery 02/08/24, UTI Start: 02-03-2024 End: 02-21-2024 Admission to same day surgery center Camacho Black RN Work Phone: Pre Anesthesia Comment on above: Preparations For Surgery (PACC) Start: 02-03-2024 End: 02-21-2024 ambulatory Camacho Black RN Work Phone: Pre Anesthesia Start: 02-03-2024 End: 02-03-2024 Telephone encounter Camacho Black RN Work Phone: Pre Anesthesia Comment on above: Preparations For Surgery (PACC - Eliquis instructions) Start: 02-02-2024 End: 02-02-2024 Telephone encounter Karolina Crawford APRN.CNP Work Phone: Pre Anesthesia Comment on above: Appointment Start: 01-25-2024 End: 01-25-2024 Telephone encounter Rogelio Stokes MD Work Phone: Cardiology Comment on above: Medication Problem Start: 01-23-2024 End: 01-24-2024 Telephone encounter Kayla Monterroso MD Work Phone: Internal Medicine Comment on above: Medication Problem Start: 01-04-2024 End: 01-09-2024 ambulatory Kayla Monterroso MD Work Phone: Internal Medicine [facility] [place] Start: 01-04-2024 End: 01-09-2024 Patient encounter procedure Kayla Monterroso MD Work Phone: Internal Medicine [facility] Start: 01-03-2024 End: 01-03-2024 Admission to same day surgery center Brittney Vernon RN General Surgery Comment on above: Education Of Patient/family Start: 01-03-2024 End: 01-03-2024 ambulatory Brittney Vernon RN General Surgery Start: 01-02-2024 End: 01-02-2024 ambulatory KAYLA MONTERROSO Facility:[facility] Start: 01-02-2024 End: 02-14-2024 Patient encounter procedure Kaushik Lagos MD Work Phone: General Surgery Comment on above: Right inguinal hernia (Primary Dx) Paroxysmal atrial fi brillation (HCC) (Primary Dx) Start: 12-06-2023 End: 12-06-2023 Telephone encounter Lizzeth Martino RN NOC Comment on above: Follow Up Phone Call ( follow up call first attempt./) Start: 12-02-2023 End: 12-03-2023 Evaluation and management of inpatient KAYLA MONTERROSO Facility:[facility] Start: 12-02-2023 End: 12-02-2023 ambulatory [facility] Facility:[facility] Start: 12-01-2023 End: 12-01-2023 ambulatory Rogelio Stokes MD Work Phone: Cardiology Comment on above: Patient Education (PVI/ Watchman) Start: 11-29-2023 End: 11-29-2023 Orders Only Risa Warner APRN.SERVICE CENTER SPECIALIST Work Phone: Kidney Medicine Comment on above: Benign hypertension with chronic kidney disease, stage III (HCC) (Primary Dx) Patient Update Start: 11-28-2023 End: 11-29-2023 Telephone encounter Rupesh Gu DO Work Phone: Cardiology Comment on above: order/ watchman procedure Start: 11-24-2023 End: 11-24-2023 Telephone encounter Kayla Monterroso MD Work Phone: Internal Medicine Comment on above: Results; Appointment Start: 11-22-2023 End: 11-22-2023 ambulatory [facility] Facility:[facility] Start: 11-21-2023 End: 11-21-2023 Subsequent hospital visit by physician Shannan [facility] Work Phone: [facility] Radiology Ultrasound Comment on above: Abdominal wall bulge [R19.00] Start: 11-21-2023 End: 11-21-2023 ambulatory [facility] Facility:[facility] Start: 11-21-2023 End: 11-21-2023 Patient encounter procedure Risa Warner APRN.SERVICE CENTER SPECIALIST Work Phone: Kidney Medicine Comment on above: Benign hypertension with chronic kidney disease, stage III (HCC) (Primary Dx); Stage 3b chronic kidney disease (HCC); Hyperlipidemia, unspecified hyperlipidemia type; Vitamin D deficiency Start: 11-17-2023 End: 11-17-2023 Telephone encounter Kaushik Kate Radiology Comment on above: Appointment Start: 11-16-2023 End: 12-07-2023 Orders Only Rogelio Stokes MD Work Phone: Cardiology Comment on above: Paroxysmal atrial fibrillation (HCC) (Pr imary Dx) Appointment Reschedu led (Due to change in physician's schedule) Cardiac Clearance Start: 11-10-2023 End: 11-10-2023 Telephone encounter Kayla Monterroso MD Work Phone: Internal Medicine Comment on above: Orders Start: 11-09-2023 End: 11-09-2023 Orders Only Risa Warner HARDWARE ENGINEER.SERVICE CENTER SPECIALIST Work Phone: Kidney Medicine Comment on above: Stage 3b chronic kidney disease (HCC) (P rimary Dx) Start: 11-08-2023 End: 11-09-2023 Telephone encounter Kayla Monterroso MD Work Phone: Internal Medicine Comment on above: Results; Appointment Start: 11-08-2023 End: 11-08-2023 Patient encounter procedure Rupesh Gu DO Work Phone: Cardiology Comment on above: Paroxysmal atrial fibrillation (HCC) (Pr imary Dx); Coronary artery disease involving [place] coronary artery of [place] heart without angina pectoris; Hypertension, unspecified type; Mixed hyperlipidemia; Non-rheumatic mitral regurgitation; PVD (peripheral vascular disease) (HCC) Start: 11-08-2023 End: 11-08-2023 ambulatory KAYLA MONTERROSO Facility:[facility] Start: 11-03-2023 End: 11-03-2023 ambulatory KAYLA MONTERROSO Facility:[facility] Start: 11-03-2023 End: 11-03-2023 Patient encounter procedure Kayla Monterroso MD Work Phone: Internal Medicine Comment on above: Medicare annual wellness visit, subseque nt (Primary Dx); Advanced directives, counseling/discussion; Screening for depression; Encounter for screening examination for other mental health and behavioral disorders; Mixed hyperlipidemia; Asymptomatic postmenopausal status; Hypertension, unspecified type; History of ST elevation myocardial infarction (STEMI); Paroxysmal atrial fibrillation (HCC); CKD (chronic kidney disease) stage 4, GFR 15-29 ml/min (HCC); Coronary artery disease involving [place] coronary artery of [place] heart without angina pectoris; Secondary renal hyperparathyroidism (HCC); Abdominal wall bulge; Gait instability Start: 10-21-2023 End: 10-21-2023 Refill Ayo Deal MD Work Phone: Cardiology Comment on above: Refill Request Start: 09-14-2023 Refill Ayo Deal MD Work Phone: Cardiology Comment on above: Refill Request Start: 09-09-2023 End: 09-09-2023 Patient encounter procedure MD Kayla Monterroso Work Phone: [facility] Work Phone: Start: 09-09-2023 End: 09-09-2023 ambulatory MD Kayla Monterroso Work Phone: [facility] Work Phone: Start: 08-08-2023 Refill Stepan Roberts APRN.CNP Work Phone: Internal Medicine Comment on above: Refill Request Start: 08-08-2023 Telephone encounter Kayla Monterroso MD Work Phone: Internal Medicine Comment on above: Orders; Appointment Start: 08-08-2023 End: 08-08-2023 ambulatory KAYLA MONTERROSO Facility:[facility] Start: 08-08-2023 End: 08-08-2023 Patient encounter procedure Kayla Monterroso MD Work Phone: Internal Medicine Comment on above: History of ST elevation myocardial infar ction (STEMI) (Primary Dx); Hypertension, unspecified type; Atherosclerotic peripheral vascular disease with intermittent claudication (HCC); Coronary artery disease involving [place] coronary artery of [place] heart without angina pectoris; Paroxysmal atrial fibrillation (HCC); CKD (chronic kidney disease) stage 4, GFR 15-29 ml/min ([facility]) Start: 08-08-2023 End: 08-08-2023 Telemedicine consultation with patient Kayla Monterroso MD Work Phone: Internal Medicine Start: 08-05-2023 End: 08-05-2023 ambulatory KAYLA MONTERROSO Facility:[facility] Start: 08-05-2023 End: 08-05-2023 Patient encounter procedure Ayo Deal MD Work Phone: Cardiology Comment on above: Atrial fibrillation, persistent (HCC) (P rimary Dx); Hypertension, unspecified type; Atherosclerotic peripheral vascular disease with intermittent claudication (HCC); History of ST elevation myocardial infarction (STEMI); PAF (paroxysmal atrial fibrillation) (HCC); Unspecified severe protein-calorie malnutrition (HCC); Aortoiliac occlusive disease (HCC) Start: 08-02-2023 Telephone encounter Kayla Monterroso MD Work Phone: Internal Medicine Comment on above: Appointment Start: 08-01-2023 Refill [facility] HARDWARE ENGINEER.SERVICE CENTER SPECIALIST Work Phone: Internal Medicine Comment on above: Refill Request Start: 07-28-2023 End: 07-28-2023 ambulatory [facility] Facility:[facility] Start: 07-28-2023 End: 07-28-2023 Patient encounter procedure Stepan Roberts HARDWARE ENGINEER.SERVICE CENTER SPECIALIST Work Phone: Internal Medicine Comment on above: Follow-up exam (Primary Dx); Hypertension, unspecified type; CKD (chronic kidney disease) stage 4, GFR 15-29 ml/min (HCC); Paroxysmal atrial fibrillation (HCC); Mixed hyperlipidemia Start: 07-20-2023 Telephone encounter Kayla Monterroso MD Work Phone: Internal Medicine Start: 07-19-2023 Refill Ayo Deal MD Work Phone: Cardiology Comment on above: Refill Request Start: 07-06-2023 Telephone encounter Kayla Monterroso MD Work Phone: Internal Medicine Comment on above: Home Care Start: 07-04-2023 Telephone encounter Rogelio Stokes MD Work Phone: Cardiology Comment on above: Procedure (EP: PVI + Watchman) Start: 07-01-2023 Telephone encounter Kayla Monterroso MD Work Phone: Internal Medicine Comment on above: Medication Question Start: 06-27-2023 ambulatory Ayo Deal MD Work Phone: Cardiology Start: 06-27-2023 Patient encounter procedure Ayo Deal MD Work Phone: Cardiology Start: 06-22-2023 End: 06-22-2023 ambulatory [facility] Facility:[facility] Start: 06-22-2023 End: 06-22-2023 Patient encounter procedure Rogelio Stokes MD Work Phone: Cardiology Comment on above: Atrial fibrillation, persistent (HCC) (P rimary Dx) Start: 06-22-2023 End: 06-22-2023 ambulatory [facility] Facility:[facility] Start: 06-03-2023 Telephone encounter Ayo Deal MD Work Phone: Cardiology Comment on above: Patient Update Start: 05-30-2023 End: 05-30-2023 ambulatory [facility] Facility:[facility] Start: 05-30-2023 End: 05-30-2023 Patient encounter procedure Juan Gomez MELISSA Work Phone: Cardiology Comment on above: Paroxysmal atrial fibrillation (HCC) (Pr imary Dx); Acute on chronic heart failure with preserved ejection fraction (HCC) Start: 05-27-2023 Telephone encounter Ayo Deal MD Work Phone: Cardiology Comment on above: Please call Patient's significant other as soon as possible Start: 05-26-2023 Telephone encounter Kayla Monterroso MD Work Phone: [address] [place] [address] Comment on above: Orders (C) Start: 05-26-2023 ambulatory [facility] Facility:[facility] Start: 05-20-2023 Telephone encounter Ayo Deal MD Work Phone: Cardiology Comment on above: ER/Urgent Referral Start: 05-20-2023 End: 05-20-2023 Emergency department patient visit FREDDY FARHAT [facility] Start: 05-17-2023 End: 05-19-2023 Evaluation and management of inpatient LUIS ESTRELLA [facility] Start: 05-17-2023 End: 05-19-2023 Evaluation and management of inpatient Arabella Dutton DO Work Phone: [facility] ICU Comment on above: Chest pain, unspecified type (Primary Dx ); Right sided abdominal pain; Coronary artery disease involving [place] coronary artery of [place] heart without angina pectoris; Mixed hyperlipidemia; Essential hypertension; Acute deep vein thrombosis (DVT) of distal vein of right lower extremity (HCC) Start: 05-17-2023 End: 05-17-2023 FQ visit new patient Eden Yañez NE Work Phone: [facility] Work Phone: Start: 05-17-2023 End: 05-17-2023 Emergency department patient visit Izzy Vinsonaraseli MULLINS Work Phone: [facility] Work Phone: Start: 05-16-2023 ambulatory Izzy Chu AMELIAS [facility] Start: 04-25-2023 End: 04-25-2023 ambulatory KAYLA MONTERROSO Facility:[facility] Start: 03-31-2023 ambulatory Matias Salvador [facility] Comment on above: Population Health Navigation Outreach (A nthem AWE Outreach ) Start: 03-14-2023 ambulatory RENAE MARGAUX Facility:[facility] Start: 02-02-2023 ambulatory Kayla Monterroso MD Work Phone: Internal Medicine [facility] Start: 01-28-2023 Refill Vielka Pennington APRN.SERVICE CENTER SPECIALIST Work Phone: Cardiology Comment on above: Refill Request Start: 01-28-2023 End: 01-28-2023 Patient encounter procedure Ayo Deal MD Work Phone: Cardiology Comment on above: Paroxysmal atrial fibrillation (HCC) (Pr imary Dx); Aortoiliac occlusive disease (HCC) Start: 01-14-2023 End: 01-14-2023 Patient encounter procedure Eileen Goins MD Work Phone: Neurology Comment on above: APPOINTMENT CANCELLED (Primary Dx); Pulsatile tinnitus, left ear Start: 11-15-2022 End: 11-15-2022 Patient encounter procedure Risa Warner APRN.SERVICE CENTER SPECIALIST Work Phone: Kidney Medicine Comment on above: Benign hypertension with chronic kidney disease, stage III (HCC) (Primary Dx); Stage 3b chronic kidney disease (HCC); Hyperlipidemia, unspecified hyperlipidemia type Carotid artery steno sis, asymptomatic, bilateral (Primary Dx); PVD (peripheral vascular disease) (HCC); Aortoiliac occlusive disease (HCC) Start: 10-21-2022 End: 10-21-2022 Patient encounter procedure Lily Skelton Terence TORRES Work Phone: Internal Medicine Comment on above: Encounter for Medicare annual wellness e xam (Primary Dx); Coronary artery disease involving [place] coronary artery of [place] heart without angina pectoris; Mixed hyperlipidemia; Paroxysmal atrial fibrillation (HCC); Essential hypertension; Atherosclerotic peripheral vascular disease with intermittent claudication (HCC); CKD (chronic kidney disease) stage 4, GFR 15-29 ml/min (HCC) Start: 07-28-2022 End: 07-28-2022 Patient encounter procedure Ayo Deal MD Work Phone: Cardiology Comment on above: Paroxysmal atrial fibrillation (HCC) (Pr imary Dx); Hypertension, unspecified type; Atherosclerotic peripheral vascular disease with intermittent claudication (HCC); Aortoiliac occlusive disease (HCC) Start: 05-26-2022 Refill Kayla Monterroso MD Work Phone: [address] [place] [address] Comment on above: Refill Request Start: 03-03-2022 ambulatory Kayla Monterroso MD Work Phone: Internal Medicine [facility] [place] Start: 02-23-2022 End: 02-24-[address] HSIEH [facility] Facility: Start: 01-26-2022 End: 01-26-2022 Patient encounter procedure Ayo Deal MD Work Phone: Cardiology Comment on above: Paroxysmal atrial fibrillation (HCC) (Pr imary Dx); History of ST elevation myocardial infarction (STEMI); PAF (paroxysmal atrial fibrillation) (HCC) Start: 12-17-2021 ambulatory Gabriella Kaufman MA [facility] Comment on above: Population Health Navigation Outreach (S alexei of [facility] outreach pt) Start: 12-09-2021 End: 12-09-2021 Patient encounter procedure Chuck Tucker MD Work Phone: Vascular Surgery Comment on above: Aortoiliac occlusive disease (HCC) (Prim carole Dx); Carotid artery stenosis, asymptomatic, bilateral Start: 12-08-2021 Refill Janey Patricia DO Work Phone: Kidney Medicine Comment on above: Refill Request Start: 12-07-2021 Telephone encounter Cuhck Tucker MD Work Phone: Vascular Surgery Comment on above: Appointment Start: 11-12-2021 ambulatory Mile Brady HARDWARE ENGINEER.SERVICE CENTER SPECIALIST Work Phone: Pulmonary Medicine Start: 11-11-2021 End: 11-11-2021 ambulatory Macrina Sukalac PA-C Work Phone: Otolaryngology Comment on above: Pulsatile tinnitus, left ear (Primary Dx ); Lightheadedness; Tinnitus of left ear; Tension-type headache, not intractable, unspecified chronicity pattern Start: 11-11-2021 End: 11-11-2021 Telemedicine consultation with patient Macrina Sukalac PA-C Work Phone: [facility] Start: 10-30-2021 Orders Only Renae German HARDWARE ENGINEER.SERVICE CENTER SPECIALIST Work Phone: Vascular Surgery Comment on above: PVD (peripheral vascular disease) (HCC) (Primary Dx) Start: 10-26-2021 End: 10-26-2021 Patient encounter procedure Kavitha Lou MD Work Phone: Otolaryngology Comment on above: Tension-type headache, not intractable, unspecified chronicity pattern (Primary Dx); Tinnitus, unspecified laterality; Bilateral carotid artery stenosis Start: 10-12-2021 End: 10-12-2021 ambulatory Kayla Monterroso MD Work Phone: Internal Medicine Comment on above: Tinnitus, unspecified laterality (Primar y Dx); Tension-type headache, not intractable, unspecified chronicity pattern Start: 10-12-2021 End: 10-12-2021 Telemedicine consultation with patient Kayla Monterroso MD Work Phone: [facility] Start: 09-18-2021 Refill Kayla Monterroso MD Work Phone: Internal Medicine Comment on above: Refill Request Start: 08-11-2021 End: 08-11-2021 Patient encounter procedure Rupesh Gu DO Work Phone: Cardiology Comment on above: Paroxysmal atrial fibrillation (HCC) (Pr imary Dx); Coronary artery disease involving [place] coronary artery of [place] heart without angina pectoris; Hypertension, unspecified type; Mixed hyperlipidemia; Non-rheumatic mitral regurgitation; PVD (peripheral vascular disease) (HCC) Start: 06-26-2021 Orders Only Ayo Deal MD Work Phone: Cardiology Comment on above: Paroxysmal atrial fibrillation (HCC) (Pr imary Dx) Start: 06-17-2021 Telephone encounter Risa Warner APRN.CNP Work Phone: Kidney Medicine Comment on above: Appointment Start: 05-29-2020 End: 05-29-2020 Subsequent hospital visit by physician Ronnie Mazariegos 1 Work Phone: Radiology Comment on above: Pain in right foot [M79.671] Start: 09-30-2016 End: 10-01-2016 Ambulatory GILMER EBRAHEIM Facility:[facility] Procedures Date Procedure Procedure Detail Performing Clinician Start: 11-22-2023 Antibody screen KAYLA UNGER Comment on above: Order Comment: Speci men Type: BLOOD SPECIMENOrdering Facility: [facility] Address: [address] [place] [address] Performed By: #### T [id number] ####CC [facility] BLOOD BANKIA [id number] [place] [address] [place] Start: 11-08-2023 Lipid 1996 panel - S kay or Plasma Rupesh Gu DO Work Phone: Start: 11-03-2023 Adult depression scr eening assessment Rupesh uG DO Work Phone: Start: 10-21-2023 Antibody screen KAYLA UNGER Comment on above: Order Comment: Speci men Type: URINE SPECIMEN Ordering Facility: [facility] Address: [address] [place] [address] Performed By: #### 3 [id number], [facility], [id number] #### [facility] CLIA [id number] [address] [place] [address] [place] Start: 05-19-2023 Natriuretic peptide [...] w/least 12 lds i&r only Laine Tejeda HARDWARE ENGINEER - SERVICE CENTER SPECIALIST Work Phone: Start: 05-18-2023 Mri abdomen w/o & w/ contrast material Luis Estrella MD Work Phone: Start: 05-18-2023 Blood count complete auto&auto difrntl wbc Laine Tejeda HARDWARE ENGINEER - SERVICE CENTER SPECIALIST Work Phone: Start: 05-17-2023 Intermittent pulse oximetry [...] 05-17-2023 Antibody hiv-1&hiv-2 single result Eden Yañez SERVICE CENTER SPECIALIST Work Phone: Start: 05-17-2023 Aspirin 81mg Oral Tab,CARLOS A Yañez SERVICE CENTER SPECIALIST Work Phone: Start: 05-17-2023 Current tobacco non- user cad cap copd pv dm Eden Yañez SERVICE CENTER SPECIALIST Work Phone: Start: 05-17-2023 Most recent diastoli c blood pressure 80-89 mm hg Eden Yañez SERVICE CENTER SPECIALIST Work Phone: Start: 05-17-2023 Most recent systolic blood pres>/equal 140 mm hg Eden Yañez SERVICE CENTER SPECIALIST Work Phone: Start: 05-17-2023 Nitroglycerine 0.4 M g Sublingual eACH, EBOX Eden Yañez SERVICE CENTER SPECIALIST Work Phone: Start: 05-17-2023 Pt-focused hlth risk assmt score doc stnd instrm Eden Yañez SERVICE CENTER SPECIALIST Work Phone: Start: 05-17-2023 Ct thorax w/contrast material Arabella Dutton DO Work Phone: Start: 05-17-2023 Radiologic exam ches t single view Arabella Dutton DO Work Phone: Start: 05-17-2023 End: 05-17-2023 Ecg routine ecg w/least 12 lds w/i&r Eden Yañez SERVICE CENTER SPECIALIST Work Phone: Start: 05-17-2023 End: 05-17-2023 Comprehensive metabolic panel Arabella Dutton DO Work Phone: Start: 01-28-2023 Ecg routine ecg w/le ast 12 lds i&r only Ayo Deal MD Work Phone: Start: 01-28-2023 Lipid 1996 panel - S kay or Plasma Vielka Pennington APRN.SERVICE CENTER SPECIALIST Work Phone: Start: 07-28-2022 Ecg routine ecg w/le ast 12 lds i&r only [facility] Provider Start: 11-27-2020 Lipid 1996 panel - S kay or Plasma Risa Warner APRN.SERVICE CENTER SPECIALIST Work Phone: Start: 09-27-2020 Adult depression scr eening assessment Risa Warner APRN.NE Work Phone: Start: 07-29-2020 Mammography Risa smith APRN.CNP Work Phone: Start: 05-29-2020 Radex foot complete minimum 3 views Claudine Jackson DPM Work Phone: Start: 03-28-2019 Colonoscopy Risa smith APRN.SERVICE CENTER SPECIALIST Work Phone: Plan of Treatment Date Care Activity Detail Author Start: 11-07-2028 Lipid panel Lipid Screening [facility] Start: 05-18-2028 Lipid panel Lipid Screening [facility] Start: 01-29-2028 Lipid 1996 panel - Serum or Plasma Lipid Screening [facility] Start: 01-29-2028 Lipid panel Lipid Screening [facility] Start: 11-07-2026 Diabetes Screening Diabetes Screening [facility] Start: 10-20-2026 Diabetes Screening Diabetes Screening [facility] Start: 07-27-2026 Diabetes Screening Diabetes Screening [facility] Start: 05-29-2026 Diabetes Screening Diabetes Screening [facility] Start: 2026 RSV Vaccine (1 - 1-dose 75+ series) RSV Vaccine (1 - 1-dose 75+ series) [facility] Start: 01-28-2026 Diabetes Screening Diabetes Screening [facility] Start: 11-27-2025 Lipid 1996 panel - Serum or Plasma Lipid Screening [facility] Start: 11-27-2025 LIPID SCREEN LIPID SCREEN [facility] Start: 07-28-2025 DIABETES SCREEN DIABETES SCREEN [facility] Start: 07-28-2025 Diabetes Screening Diabetes Screening [facility] Start: 03-06-2025 BP Controlled (<130/80) BP Controlled (<130/80) [facility] Start: 02-05-2025 BP Controlled (<130/80) BP Controlled (<130/80) [facility] Start: 01-01-2025 BP Controlled (<130/80) BP Controlled (<130/80) [facility] Start: 11-21-2024 Creatinine measurement Serum Creatinine [facility] Start: 11-20-2024 BP Controlled (<130/80) BP Controlled (<130/80) [facility] Start: 11-07-2024 Complete blood count Hemoglobin/Hematocrit [facility] Start: 11-07-2024 Creatinine measurement Serum Creatinine [facility] Start: 11-07-2024 Hepatitis B surface antibody level LDL Cholesterol [facility] Start: 11-02-2024 Annual PCP Team Chronic Disease Visit Annual PCP Team Chronic Disease Visit [facility] Start: 11-02-2024 Anxiety Screening Anxiety Screening [facility] Start: 11-02-2024 Depression Screening Depression Screening [facility] Start: 10-20-2024 Complete blood count Hemoglobin/Hematocrit [facility] Start: 10-20-2024 Creatinine measurement Serum Creatinine [facility] Start: 08-07-2024 Annual PCP Team Chronic Disease Visit Annual PCP Team Chronic Disease Visit [facility] Start: 07-27-2024 Annual PCP Team Chronic Disease Visit Annual PCP Team Chronic Disease Visit [facility] Start: 07-27-2024 BP Controlled (<130/80) BP Controlled (<130/80) [facility] Start: 07-27-2024 Complete blood count Hemoglobin/Hematocrit [facility] Start: 07-27-2024 Creatinine measurement Serum Creatinine [facility] Start: 05-29-2024 BP Controlled (<130/80) BP Controlled (<130/80) [facility] Start: 05-29-2024 Creatinine measurement Serum Creatinine [facility] Start: 05-25-2024 Annual PCP Team Chronic Disease Visit Annual PCP Team Chronic Disease Visit [facility] Start: 05-24-2024 End: 05-24-2024 Patient encounter procedure 05/24/2024 11:30 AM EDT Office Visit Cardiology [address] [place] [address] [place] [address] [place], [place] [id number] Follow up/ Dr. deal Cardiology Comment on above: Follow up/ Dr. deal Start: 05-22-2024 End: 05-22-2024 Patient encounter procedure 05/22/2024 10:40 AM EDT Office Visit Kidney Medicine [address] [place] [address] DeitzerJaney DO [address] [place] [address] Return in about 6 months (around 05/20/2024) for Harshad 6 months Kidney Medicine Comment on above: Return in about 6 months (around 05/21/19 25) for Harshad 6 months Start: 05-20-2024 End: 08-19-2024 25-hydroxyvitamin D3 [Mass/volume] in Serum or Plasma VITAMIN D 25 HYDROXY Lab Routine Benign hypertension with chronic kidney disease, stage III (HCC) Stage 3b chronic kidney disease (HCC) Hyperlipidemia, unspecified hyperlipidemia type Vitamin D deficiency Expected: 05/20/2024, Expires: 08/19/2024 [facility] Comment on above: Expected: 05/20/2024, Expires: Start: 05-20-2024 End: 08-19-2024 CBC panel - Blood by Automated count COMPLETE BLOOD COUNT Lab Routine Benign hypertension with chronic kidney disease, stage III (HCC) Stage 3b chronic kidney disease (HCC) Hyperlipidemia, unspecified hyperlipidemia type Vitamin D deficiency Expected: 05/20/2024, Expires: 08/19/2024 [facility] Comment on above: Expected: 05/20/2024, Expires: Start: 05-20-2024 End: 08-19-2024 Creatinine [Mass/volume] in Urine collected for unspecified duration CREATININE RANDOM URINE Lab Routine Benign hypertension with chronic kidney disease, stage III (HCC) Stage 3b chronic kidney disease (HCC) Hyperlipidemia, unspecified hyperlipidemia type Vitamin D deficiency Expected: 05/20/2024, Expires: 08/19/2024 [facility] Comment on above: Expected: 05/20/2024, Expires: Start: 05-20-2024 End: 08-19-2024 Microalbumin/Creatinine [Mass Ratio] in Urine ALBUMIN/CREATININE RATIO, URINE Lab Routine Benign hypertension with chronic kidney disease, stage III (HCC) Stage 3b chronic kidney disease (HCC) Hyperlipidemia, unspecified hyperlipidemia type Vitamin D deficiency Expected: 05/20/2024, Expires: 08/19/2024 [facility] Comment on above: Expected: 05/20/2024, Expires: Start: 05-20-2024 End: 08-19-2024 Parathyrin.intact [Mass/volume] in Serum or Plasma PTH INTACT Lab Routine Benign hypertension with chronic kidney disease, stage III (HCC) Stage 3b chronic kidney disease (HCC) Hyperlipidemia, unspecified hyperlipidemia type Vitamin D deficiency Expected: 05/20/2024, Expires: 08/19/2024 [facility] Comment on above: Expected: 05/20/2024, Expires: Start: 05-20-2024 End: 08-19-2024 Protein [Mass/volume] in Urine PROTEIN RANDOM URINE Lab Routine Benign hypertension with chronic kidney disease, stage III (HCC) Stage 3b chronic kidney disease (HCC) Hyperlipidemia, unspecified hyperlipidemia type Vitamin D deficiency Expected: 05/20/2024, Expires: 08/19/2024 [facility] Comment on above: Expected: 05/20/2024, Expires: Start: 05-20-2024 End: 08-19-2024 Renal function 2000 panel - Serum or Plasma RENAL FUNCTION PANEL Lab Routine Benign hypertension with chronic kidney disease, stage III (HCC) Stage 3b chronic kidney disease (HCC) Hyperlipidemia, unspecified hyperlipidemia type Vitamin D deficiency Expected: 05/20/2024, Expires: 08/19/2024 [facility] Comment on above: Expected: 05/20/2024, Expires: Start: 05-19-2024 Complete blood count Hemoglobin/Hematocrit [facility] Start: 05-18-2024 GFR test (Diabetes, CKD 3-4, OR last GFR 15-59) GFR test (Diabetes, CKD 3-4, OR last GFR 15-59) [facility] Start: 05-18-2024 Hepatitis B surface antibody level LDL Cholesterol [facility] Start: 05-17-2024 End: 05-17-2024 Patient encounter procedure 05/17/2024 1:00 PM EDT Office Visit Cardiology [address] [facility] Heidy Hernández [facility] [place] [address] Rupesh Gu DO [address] [facility] [address] [facility] [place], [place] [id number] Return in about 6 months (around 05/07/2024). Cardiology Comment on above: Return in about 6 months (around 05/08/19). Start: 05-03-2024 End: 05-03-2024 Patient encounter procedure 05/03/2024 3:25 PM EST Appointment Radiology [address] [place] [address] Asymptomatic postmenopausal status [Z78.0] Radiology Comment on above: Asymptomatic postmenopausal status [Z78. 0] Start: 05-03-2024 End: 05-03-2024 Patient encounter procedure 05/03/2024 12:40 PM EST Office Visit Internal Medicine [address] [place] [address] [place] [address] [place] [address] Return in about 6 months (around 05/02/2024). Internal Medicine Comment on above: Return in about 6 months (around ). Start: 04-25-2024 Annual PCP Team Chronic Disease Visit Annual PCP Team Chronic Disease Visit [facility] Start: 03-28-2024 Colonoscopy COLONOSCOPY [facility] Start: 03-28-2024 COLORECTAL CANCER SCREENING COLORECTAL CANCER SCREENING [facility] Start: 03-28-2024 Screening for malignant neoplasm of colon [facility] Start: 03-14-2024 BP Controlled (<130/80) BP Controlled (<130/80) [facility] Start: 03-06-2024 End: 03-06-2024 Patient encounter procedure 03/06/2024 3:30 PM EST Office Visit Cardiology [address] [place] [address] Akila Calabrese, LUCIAN.SERVICE CENTER SPECIALIST [address] [place] [address] DX 3 MONTH Cardiology Comment on above: DX 3 MONTH Start: 03-06-2024 End: 03-06-2024 ambulatory 03/06/2024 2:30 PM EST Results Only Cardiology [address] [place] [address] DX 3 MONTH Cardiology Comment on above: DX 3 MONTH Start: 03-06-2024 End: 03-06-2024 Patient encounter procedure Cardiology Comment on above: DX 3 MONTH 3 MONTH F/U PVI+WATC HMAN: 12/02/23 Start: 02-29-2024 Advance Directive Discussion Advance Directive Discussion [facility] Start: 02-28-2024 End: 02-28-2024 Admission to same day surgery center [facility] Room Comment on above: LAPAROSCOPIC HERNIORRHAPHY, [...] physician 02/28/2024 7:30 AM EST Hospital Encounter [facility] Operating Room [address] [place] [address] [place] [address] [place], [place] [id number] Unilateral inguinal hernia without obstruction or gangrene, recurrence not specified [K40.90] [facility] Comment on above: Unilateral inguinal hernia without obstr uction or gangrene, recurrence not specified [K40.90] Start: 02-17-2024 End: 02-17-2024 Patient encounter procedure 02/17/2024 2:30 PM EST Office Visit Cardiology [address] [place] [address] Ny Simons, HARDWARE ENGINEER.SERVICE CENTER SPECIALIST [address] [place] [address] DX 3 MONTH Cardiology Comment on above: DX 3 MONTH Start: 02-17-2024 End: 02-17-2024 ambulatory 02/17/2024 1:30 PM EST Results Only Cardiology [address] [place] [address] DX 3 MONTH Cardiology Comment on above: DX 3 MONTH Start: 02-17-2024 End: 02-17-2024 Patient encounter procedure 02/17/2024 10:30 AM EST Office Visit Cardiology [address] [place] [address] DX 3 MONTH Cardiology Comment on above: DX 3 MONTH Start: 02-16-2024 End: 02-16-2024 Patient encounter procedure Vascular Lab Comment on above: ULTRA DUP ABD AORTA COMPLETE PVR LEG LINSEY 1 YEAR FOLLOW UP 6 month follow up Start: 02-09-2024 End: 02-09-2024 Anesthesia consultation 02/09/2024 11:00 AM EST PAT Pre Anesthesia [address] [place] [address] VV - [phone] Pre Anesthesia Comment on above: VV - [phone] Start: 02-08-2024 End: 02-08-2024 Admission to same day surgery center 02/08/2024 7:30 AM EST - 02/08/2024 9:45 AM EST Surgery [facility] Operating Room [address] [place] [address] [place] [address] [place] [address] LAPAROSCOPIC HERNIORRHAPHY, INGUINAL INITIAL [facility] Operating Room Comment on above: LAPAROSCOPIC HERNIORRHAPHY, INGUINAL INI TIAL Start: 02-08-2024 End: 02-08-2024 Laparoscopy surg rpr initial inguinal hernia LAPAROSCOPIC HERNIORRHAPHY, INGUINAL INITIAL Unilateral inguinal hernia without obstruction or gangrene, recurrence not specified 02/08/2024 7:30 AM EST [facility] Start: 02-08-2024 End: 02-08-2024 Rpr 1st ingun hrna age 6 yrs/> reducible HERNIORRHAPHY INGUINAL ELECTIVE ADULT REDUCIBLE Unilateral inguinal hernia without obstruction or gangrene, recurrence not specified 02/08/2024 7:30 AM EST [facility] OR Start: 02-08-2024 Subsequent hospital visit by physician 02/08/2024 7:30 AM EST Hospital Encounter [facility] Operating Room [address] [place] [address] [place] [address] [place] [address] Unilateral inguinal hernia without obstruction or gangrene, recurrence not specified [K40.90] [facility] Operating [facility] Comment on above: Unilateral inguinal hernia without obstr uction or gangrene, recurrence not specified [K40.90] Start: 02-06-2024 End: 02-06-2024 Anesthesia consultation 02/06/2024 4:40 PM EST PAT Pre Anesthesia [address] [place] [address] LAPAROSCOPIC HERNIORRHAPHY, INGUINAL INITIAL [1049] - Abdomen - Right Pre Anesthesia Comment on above: LAPAROSCOPIC HERNIORRHAPHY, INGUINAL INI TIAL [8149] - Abdomen - Right Start: 02-01-2024 End: 05-02-2024 Comprehensive metabolic 2000 panel - Serum or Plasma COMPREHENSIVE METABOLIC PANEL Lab Routine Atrial fibrillation, persistent (HCC) Hypertension, unspecified type Atherosclerotic peripheral vascular disease with intermittent claudication (HCC) History of ST elevation myocardial infarction (STEMI) PAF (paroxysmal atrial fibrillation) (HCC) Expected: 02/01/2024 (Approximate), Expires: 05/02/2024 [facility] Work Phone: Comment on above: Expected: 02/01/2024 (Approximate), Expi res: 05/02/2024 Start: 02-01-2024 End: 05-02-2024 Magnesium [Mass/volume] in Serum or Plasma MAGNESIUM Lab Routine Atrial fibrillation, persistent (HCC) Hypertension, unspecified type Atherosclerotic peripheral vascular disease with intermittent claudication (HCC) History of ST elevation myocardial infarction (STEMI) PAF (paroxysmal atrial fibrillation) (HCC) Expected: 02/01/2024 (Approximate), Expires: 05/02/2024 [facility] Comment on above: Expected: 02/01/2024 (Approximate), Expi res: 05/02/2024 Start: 02-01-2024 End: 05-02-2024 Thyrotropin [Units/volume] in Serum or Plasma THYROID STIMULATING HORMONE Lab Routine Atrial fibrillation, persistent (HCC) Hypertension, unspecified type Atherosclerotic peripheral vascular disease with intermittent claudication (HCC) History of ST elevation myocardial infarction (STEMI) PAF (paroxysmal atrial fibrillation) (HCC) Expected: 02/01/2024 (Approximate), Expires: 05/02/2024 [facility] Comment on above: Expected: 02/01/2024 (Approximate), Expi res: 05/02/2024 Start: 01-29-2024 BP Controlled (<130/80) BP Controlled (<130/80) [facility] Start: 01-29-2024 Complete blood count Hemoglobin/Hematocrit [facility] Start: 01-29-2024 Creatinine measurement Serum Creatinine [facility] Start: 01-29-2024 Hemoglobin/Hematocrit Hemoglobin/Hematocrit [facility] Start: 01-29-2024 Hepatitis B surface antibody level LDL Cholesterol [facility] Start: 01-29-2024 Serum Creatinine Serum Creatinine [facility] Start: 01-15-2024 BP Controlled (<130/80) BP Controlled (<130/80) [facility] Start: 01-09-2024 End: 01-09-2024 Patient encounter procedure 01/09/2024 3:00 PM EST Office Visit Cardiology [address] [place], [place] [phone] Rupesh Gu DO [address] [place], [place] [phone] Return in about 6 months (around 09/12/2023). Cardiology Comment on above: Return in about 6 months (around 09/12/19 24). Start: 01-06-2024 End: 01-06-2024 Patient encounter procedure 01/06/2024 12:45 PM EST Appointment Radiology [address] [place] [address] US HIP RT; MEDIAL-EVAL FOR RT INGUINAL HERNIA, PT CONFIRMS RT SIDE TO SCAN Radiology Comment on above: US HIP RT; MEDIAL-EVAL FOR RT INGUINAL H ERNIA, PT CONFIRMS RT SIDE TO SCAN Start: 01-02-2024 End: 01-02-2024 Patient encounter procedure 01/02/2024 3:40 PM EST Office Visit General Surgery [address] [place], [place] [phone] Kaushik Lagos MD [address] [place], [place] [id number] Other specified abdominal hernia without obstruction or gangrene [K45.8] General Surgery Comment on above: Other specified abdominal hernia without obstruction or gangrene [K45.8] Start: 12-02-2023 End: 12-02-2023 Admission to same day surgery center HOSP EP Lab Comment on above: COMPLETE EPS W/PVI ABL W/WO 3D MAP ICE Start: 12-02-2023 End: 12-02-2023 Ephys evl trnsptl tx atrial fib isolat pulm vein EP LAB Start: 12-02-2023 End: 12-02-2023 Perq clsr tcat l atr apndge w/endocardial implnt EP LAB Start: 12-02-2023 Subsequent hospital visit by physician HOSP EP Lab Comment on above: Atrial fibrillation, unspecified type (H CC) [I48.91] Start: 12-02-2023 End: 12-02-2023 Patient encounter procedure Admitting Comment on above: PVI+WATCHMAN TO BE DONE IN THE [facility] Start: 11-29-2023 End: 02-28-2024 Renal function 2000 panel - Serum or Plasma RENAL FUNCTION PANEL Lab Routine Benign hypertension with chronic kidney disease, stage III (HCC) Expected: 11/29/2023, Expires: 02/28/2024 [facility] Work Phone: Comment on above: Expected: 11/29/2023, Expires: 4 Start: 11-28-2023 DIABETES SCREEN DIABETES SCREEN [facility] Start: 11-22-2023 End: 11-15-2024 TYPE AND SCREEN,30 DAY TYPE AND SCREEN,30 DAY Blood Bank Routine Paroxysmal atrial fibrillation (HCC) Expected: 11/22/2023, Expires: 11/15/2024 [facility] Work Phone: Comment on above: Expected: 11/22/2023, Expires: 5 Start: 11-21-2023 End: 02-20-2024 Renal function 2000 panel - Serum or Plasma RENAL FUNCTION PANEL Lab Routine Benign hypertension with chronic kidney disease, stage III (HCC) Stage 3b chronic kidney disease (HCC) Hyperlipidemia, unspecified hyperlipidemia type Expected: 11/21/2023, Expires: 02/20/2024 [facility] Comment on above: Expected: 11/21/2023, Expires: Start: 11-21-2023 End: 02-20-2024 Urinalysis complete panel - Urine URINALYSIS, WITH MICROSCOPIC Lab Routine Benign hypertension with chronic kidney disease, stage III (HCC) Stage 3b chronic kidney disease (HCC) Hyperlipidemia, unspecified hyperlipidemia type Expected: 11/21/2023, Expires: 02/20/2024 [facility] Work Phone: Comment on above: Expected: 11/21/2023, Expires: Start: 11-21-2023 End: 11-21-2023 Patient encounter procedure [facility] Radiology Ultrasound Comment on above: sent message- possibly needs to be seen in [facility] SP spoke with orderign - abd limited for RLQ for possible abd wall hernia. The pelvis limited will be changed to a US HIP and scheduled in [facility] to look for inguinal hernia SP Start: 11-21-2023 End: 11-21-2023 Patient encounter procedure 11/21/2023 10:30 AM EDT Office Visit Kidney Medicine [address] [place] [address] Risa Warner APRN.SERVICE CENTER SPECIALIST [address] [place] [address] Return in about 1 year (around 11/16/2023). Kidney Medicine Comment on above: Return in about 1 year (around 11/16/2023 ). Start: 11-17-2023 End: 11-17-2023 Admission to same day surgery center 11/17/2023 1:00 PM EDT - 11/17/2023 4:28 PM EDT Surgery [facility] EP Lab [address] [place] [address] Rogelio Stokes MD [address] [place] [address] COMPLETE EPS W/PVI ABL W/WO 3D MAP [...] EDT Hospital Encounter HOSP EP Lab [address] [place] [address] Rogelio Stokes MD [address] [place], [place] [id number] Atrial fibrillation, unspecified type (HCC) [I48.91] HOSP [...] unspecified hyperlipidemia type Expected: 11/16/2023, Expires: 01/16/2024 [facility] Work Phone: Comment on above: Expected: 11/16/2023, Expires: Start: 11-16-2023 End: 01-16-2024 ALBUMIN/CREAT RATIO RND UR ALBUMIN/CREAT RATIO RND UR Lab Routine Benign hypertension with chronic kidney disease, stage III (HCC) Stage 3b chronic kidney disease (HCC) Hyperlipidemia, unspecified hyperlipidemia type Expected: 11/16/2023, Expires: 01/16/2024 [facility] Work Phone: Comment on above: Expected: 11/16/2023, Expires: Start: 11-16-2023 End: 01-16-2024 CBC panel - Blood by Automated count CBC Lab Routine Benign hypertension with chronic kidney disease, stage III (HCC) Stage 3b chronic kidney disease (HCC) Hyperlipidemia, unspecified hyperlipidemia type Expected: 11/16/2023, Expires: 01/16/2024 [facility] Work Phone: Comment on above: Expected: 11/16/2023, Expires: Start: 11-16-2023 End: 01-16-2024 Creatinine [Mass/volume] in Urine collected for unspecified duration CREATININE RANDOM UR Lab Routine Benign hypertension with chronic kidney disease, stage III (HCC) Stage 3b chronic kidney disease (HCC) Hyperlipidemia, unspecified hyperlipidemia type Expected: 11/16/2023, Expires: 01/16/2024 [facility] Work Phone: Comment on above: Expected: 11/16/2023, Expires: Start: 11-16-2023 End: 01-16-2024 Parathyrin.intact [Mass/volume] in Serum or Plasma PTH INTACT BLD Lab Routine Benign hypertension with chronic kidney disease, stage III (HCC) Stage 3b chronic kidney disease (HCC) Hyperlipidemia, unspecified hyperlipidemia type Expected: 11/16/2023, Expires: 01/16/2024 [facility] Work Phone: Comment on above: Expected: 11/16/2023, Expires: Start: 11-16-2023 End: 01-16-2024 Protein [Mass/volume] in Urine PROTEIN RANDOM UR Lab Routine Benign hypertension with chronic kidney disease, stage III (HCC) Stage 3b chronic kidney disease (HCC) Hyperlipidemia, unspecified hyperlipidemia type Expected: 11/16/2023, Expires: 01/16/2024 [facility] Work Phone: Comment on above: Expected: 11/16/2023, Expires: Start: 11-16-2023 End: 01-16-2024 Renal function 2000 panel - Serum or Plasma RENAL FUNCTION PANEL Lab Routine Benign hypertension with chronic kidney disease, stage III (HCC) Stage 3b chronic kidney disease (HCC) Hyperlipidemia, unspecified hyperlipidemia type Expected: 11/16/2023, Expires: 01/16/2024 [facility] Work Phone: Comment on above: Expected: 11/16/2023, Expires: Start: 11-14-2023 End: 11-14-2023 Patient encounter procedure 11/14/2023 5:40 PM EDT [facility] Internal Medicine [address] [place] [address] [place] [address] [place] [address] discuss results Internal Medicine Comment on above: discuss results Start: 11-09-2023 End: 02-08-2024 Urinalysis complete panel - Urine URINALYSIS, WITH MICROSCOPIC Lab Routine Stage 3b chronic kidney disease (HCC) Expected: 11/09/2023, Expires: 02/08/2024 [facility] Work Phone: Comment on above: Expected: 11/09/2023, Expires: Start: 11-08-2023 End: 11-08-2023 Patient encounter procedure 11/08/2023 10:30 AM EDT Office Visit Cardiology [address] [place], [place] [phone] Rupesh Gu, [address] [facility] [address] [place], [place] [phone] Return in about 6 months (around 09/12/2023). Cardiology Comment on above: Return in about 6 months (around 09/12/19 24). Start: 11-03-2023 End: 11-03-2023 Patient encounter procedure 11/03/2023 11:40 AM EDT Office Visit Internal Medicine [address] [place] [address] [place] [address] [place] [address] Annual Medicare Wellness Exam due Internal Medicine Comment on above: Annual Medicare Wellness Exam due Start: 10-30-2023 Influenza vaccination Influenza Vaccine (#1) [facility] Start: 10-24-2023 End: 10-24-2023 Patient encounter procedure 10/24/2023 10:40 AM EDT Office Visit Internal Medicine [address] [place] [address] Lily Velez APRN.SERVICE CENTER SPECIALIST [address] [place] [address] Annual Medicare Wellness Exam due Internal Medicine Comment on above: Annual Medicare Wellness Exam due Start: 10-22-2023 ANNUAL PCP TEAM CHRONIC DISEASE VISIT ANNUAL PCP TEAM CHRONIC DISEASE VISIT [facility] Start: 10-22-2023 BP CONTROLLED (<130/80) BP CONTROLLED (<130/80) [facility] Start: 10-22-2023 SHINGRIX VACCINE (1 of 2) SHINGRIX VACCINE (1 of 2) [facility] Comment on above: Postponed from 2001 (Declined at t his time) Start: 10-22-2023 Urine microalbumin profile [facility] Comment on above: Postponed from 06/10/2016 (Declined at t his time) Start: 10-21-2023 End: 10-21-2023 ambulatory 10/21/2023 9:00 AM EDT Results Only [facility] [address] [place] [address] PVI+WATCHMAN [facility] Comment on above: PVI+WATCHMAN Start: 10-17-2023 End: 07-03-2024 Basic metabolic 2000 panel - Serum or Plasma BASIC METABOLIC PANEL Lab Routine Atrial fibrillation, persistent (HCC) Expected: 10/17/2023, Expires: 07/03/2024 [facility] Work Phone: Comment on above: Expected: 10/17/2023, Expires: Start: 10-17-2023 End: 07-03-2024 CBC panel - Blood by Automated count COMPLETE BLOOD COUNT Lab Routine Atrial fibrillation, persistent (HCC) Expected: 10/17/2023, Expires: 07/03/2024 [facility] Comment on above: Expected: 10/17/2023, Expires: Start: 10-17-2023 End: 07-03-2024 TYPE AND SCREEN,30 DAY TYPE AND SCREEN,30 DAY Blood Bank Routine Atrial fibrillation, persistent (HCC) Expected: 10/17/2023, Expires: 07/03/2024 [facility] Comment on above: Expected: 10/17/2023, Expires: Start: 09-12-2023 End: 09-12-2023 Patient encounter procedure 09/12/2023 9:30 AM EDT Office Visit Cardiology [address] [place] [address] [place] [address] Rupesh Gu, [address] [facility] [place] [address] Return in about 6 months (around 09/12/2023). Cardiology Comment on above: Return in about 6 months (around 09/12/19). Start: 09-09-2023 MG Breast - bilateral Screening [facility] Start: 09-09-2023 Screening mammography of bilateral breasts MM screening mammo BI w/CAD [facility] Start: 08-26-2023 End: 08-26-2023 Patient encounter procedure 08/26/2023 10:20 AM EDT Appointment [facility] Radiology Mammography [address] [place] [address] Encounter for screening mammogram for breast cancer [Z12.31] [facility] Radiology Mammography Comment on above: Encounter for screening mammogram for br east cancer [Z12.31] Start: 08-08-2023 End: 11-07-2023 Basic metabolic 2000 panel - Serum or Plasma BASIC METABOLIC PANEL Lab Routine Hypertension, unspecified type Expected: 08/08/2023, Expires: 11/07/2023 [facility] Work Phone: Comment on above: Expected: 08/08/2023, Expires: Start: 08-08-2023 End: 08-08-2023 Follow-up encounter 08/08/2023 1:40 PM EDT [facility] Internal Medicine [address] [place] [address] [place] [address] [place] [address] follow up, mulitple concerns, 40 min needed Internal Medicine Comment on above: follow up, mulitple concerns, 40 min nee ded Start: 08-05-2023 End: 08-05-2023 Patient encounter procedure Cardiology Comment on above: Return in about 6 months (around ). *No device* Return i n about 6 months (around 07/30/2023). Start: 07-29-2023 HEMOGLOBIN/HEMATOCRIT HEMOGLOBIN/HEMATOCRIT [facility] Start: 07-29-2023 SERUM CREATININE SERUM CREATININE [facility] Start: 07-28-2023 End: 07-28-2023 Patient encounter procedure 07/28/2023 11:00 AM EDT Office Visit Internal Medicine [address] [place] [address] Stepan Roberts APRN.SERVICE CENTER SPECIALIST [address] [place] [address] hosp follow Internal Medicine Comment on above: hosp follow Start: 07-27-2023 End: 10-26-2023 Basic metabolic 2000 panel - Serum or Plasma BASIC METABOLIC PNL Lab Routine Paroxysmal atrial fibrillation (HCC) Expected: 07/27/2023 (Approximate), Expires: 10/26/2023 [facility] Work Phone: Comment on above: Expected: 07/27/2023 (Approximate), Expi res: 10/26/2023 Start: 07-27-2023 End: 10-26-2023 CBC W Auto Differential panel - Blood CBC + DIFF Lab Routine Paroxysmal atrial fibrillation (HCC) Expected: 07/27/2023 (Approximate), Expires: 10/26/2023 [facility] Work Phone: Comment on above: Expected: 07/27/2023 (Approximate), Expi res: 10/26/2023 Start: 07-27-2023 End: 10-26-2023 Magnesium [Mass/volume] in Serum or Plasma MAGNESIUM BLD Lab Routine Paroxysmal atrial fibrillation (HCC) Expected: 07/27/2023 (Approximate), Expires: 10/26/2023 [facility] Work Phone: Comment on above: Expected: 07/27/2023 (Approximate), Expi res: 10/26/2023 Start: 07-27-2023 End: 02-27-2024 Radiologic exam chest 2 views XR CHEST 2V FRONTAL/LAT Radiology Routine Paroxysmal atrial fibrillation (HCC) Expected: 07/27/2023 (Approximate), Expires: 02/27/2024 [facility] Work Phone: Comment on above: Expected: 07/27/2023 (Approximate), Expi res: 02/27/2024 Start: 06-13-2023 End: 09-12-2023 Natriuretic peptide.B prohormone N-Terminal [Mass/volume] in Serum or Plasma NT PRO BNP Lab Routine Paroxysmal atrial fibrillation (HCC) Expected: 06/13/2023, Expires: 09/12/2023 [facility] Work Phone: Comment on above: Expected: 06/13/2023, Expires: Start: 05-17-2023 End: 05-17-2023 Patient education based on identified need [facility] Start: 02-28-2023 Advance Directive Discussion Advance Directive Discussion [facility] Start: 02-28-2023 Annual Wellness Visit (Medicare Advantage) Annual Wellness Visit (Medicare Advantage) [facility] Start: 02-28-2023 Behavioral Health Screening Behavioral Health Screening [facility] Start: 02-28-2023 Depression Assessment Depression Assessment [facility] Start: 01-27-2023 End: 03-29-2023 Basic metabolic 2000 panel - Serum or Plasma BASIC METABOLIC PNL Lab Routine Paroxysmal atrial fibrillation (HCC) Hypertension, unspecified type Atherosclerotic peripheral vascular disease with intermittent claudication (HCC) Expected: 01/27/2023, Expires: 03/29/2023 [facility] Work Phone: Comment on above: Expected: 01/27/2023, Expires: 4 Start: 01-27-2023 End: 03-29-2023 CBC W Auto Differential panel - Blood CBC + DIFF Lab Routine Paroxysmal atrial fibrillation (HCC) Hypertension, unspecified type Atherosclerotic peripheral vascular disease with intermittent claudication (HCC) Expected: 01/27/2023, Expires: 03/29/2023 [facility] Work Phone: Comment on above: Expected: 01/27/2023, Expires: 4 Start: 01-27-2023 End: 03-29-2023 Magnesium [Mass/volume] in Serum or Plasma MAGNESIUM BLD Lab Routine Paroxysmal atrial fibrillation (HCC) Hypertension, unspecified type Atherosclerotic peripheral vascular disease with intermittent claudication (HCC) Expected: 01/27/2023, Expires: 03/29/2023 [facility] Work Phone: Comment on above: Expected: 01/27/2023, Expires: 4 Start: 01-26-2023 BP CONTROLLED (<130/80) BP CONTROLLED (<130/80) [facility] Start: 01-21-2023 End: 03-23-2023 Lipid 1996 panel - Serum or Plasma LIPID PANEL BASIC Lab Routine Coronary artery disease involving [place] coronary artery of [place] heart without angina pectoris Expected: 01/21/2023, Expires: 03/23/2023 [facility] Work Phone: Comment on above: Expected: 01/21/2023, Expires: 4 Start: 11-22-2022 End: 07-29-2023 OUTSIDE VENDOR CARDIAC OUTPATIENT EXTENDED RHYTHM RECORDING (WITHOUT TELEMETRY) OUTSIDE VENDOR CARDIAC OUTPATIENT EXTENDED RHYTHM RECORDING (WITHOUT TELEMETRY) Holter Routine Paroxysmal atrial fibrillation (HCC) Hypertension, unspecified type Atherosclerotic peripheral vascular disease with intermittent claudication (HCC) Expected: 11/22/2022, Expires: 07/29/2023 [facility] Work Phone: Comment on above: Expected: 11/22/2022, Expires: Start: 10-29-2022 Influenza vaccination [facility] Start: 10-26-2022 HEMOGLOBIN/HEMATOCRIT HEMOGLOBIN/HEMATOCRIT [facility] Start: 10-26-2022 SERUM CREATININE SERUM CREATININE [facility] Start: 10-12-2022 ANNUAL PCP TEAM CHRONIC DISEASE VISIT ANNUAL PCP TEAM CHRONIC DISEASE VISIT [facility] Start: 07-26-2022 End: 09-25-2022 Basic metabolic 2000 panel - Serum or Plasma BASIC METABOLIC PNL Lab Routine Paroxysmal atrial fibrillation (HCC) History of ST elevation myocardial infarction (STEMI) PAF (paroxysmal atrial fibrillation) (HCC) Expected: 07/26/2022, Expires: 09/25/2022 [facility] Work Phone: Comment on above: Expected: 07/26/2022, Expires: 3 Start: 07-26-2022 End: 09-25-2022 CBC W Auto Differential panel - Blood CBC + DIFF Lab Routine Paroxysmal atrial fibrillation (HCC) History of ST elevation myocardial infarction (STEMI) PAF (paroxysmal atrial fibrillation) (HCC) Expected: 07/26/2022, Expires: 09/25/2022 [facility] Work Phone: Comment on above: Expected: 07/26/2022, Expires: 3 Start: 07-26-2022 End: 09-25-2022 Magnesium [Mass/volume] in Serum or Plasma MAGNESIUM BLD Lab Routine Paroxysmal atrial fibrillation (HCC) History of ST elevation myocardial infarction (STEMI) PAF (paroxysmal atrial fibrillation) (HCC) Expected: 07/26/2022, Expires: 09/25/2022 [facility] Work Phone: Comment on above: Expected: 07/26/2022, Expires: 3 Start: 04-28-2022 End: 01-26-2023 OUTSIDE VENDOR CARDIAC OUTPATIENT EXTENDED RHYTHM RECORDING (WITHOUT TELEMETRY) OUTSIDE VENDOR CARDIAC OUTPATIENT EXTENDED RHYTHM RECORDING (WITHOUT TELEMETRY) Holter Routine Paroxysmal atrial fibrillation (HCC) History of ST elevation myocardial infarction (STEMI) PAF (paroxysmal atrial fibrillation) (HCC) Expected: 04/28/2022, Expires: 01/26/2023 [facility] Work Phone: Comment on above: Expected: 04/28/2022, Expires: 3 Start: 03-23-2022 ANNUAL PCP TEAM CHRONIC DISEASE VISIT ANNUAL PCP TEAM CHRONIC DISEASE VISIT [facility] Start: 03-23-2022 BP CONTROLLED (<130/80) BP CONTROLLED (<130/80) [facility] Start: 02-28-2022 ADVANCE DIRECTIVE DISCUSSION ADVANCE DIRECTIVE DISCUSSION [facility] Start: 02-28-2022 DEPRESSION ASSESSMENT DEPRESSION ASSESSMENT [facility] Start: 02-10-2022 End: 04-12-2022 Lipid 1996 panel - Serum or Plasma LIPID PANEL BASIC Lab Routine Mixed hyperlipidemia Expected: 02/10/2022 (Approximate), Expires: 04/12/2022 [facility] Work Phone: Comment on above: Expected: 02/10/2022 (Approximate), Expi res: 04/12/2022 Start: 11-27-2021 Hepatitis B surface antibody level LDL CHOLESTEROL [facility] Start: 11-27-2021 SERUM CREATININE SERUM CREATININE [facility] Start: 10-29-2021 Influenza vaccination INFLUENZA (#1) [facility] Start: 09-27-2021 Adult depression screening assessment DEPRESSION SCREENING [facility] Start: 09-18-2021 COVID-19 VACCINE (#1) COVID-19 VACCINE (#1) [facility] Comment on above: Postponed from 1956 (Declined at t his time) Start: 09-18-2021 COVID-19 VACCINE (1) COVID-19 VACCINE (1) [facility] Comment on above: Postponed from 1956 (Declined at t his time) Start: 07-29-2021 Mammography [facility] Start: 07-29-2021 Screening for malignant neoplasm of breast Mammogram Screening [facility] Start: 07-18-2021 HEMOGLOBIN/HEMATOCRIT HEMOGLOBIN/HEMATOCRIT [facility] Start: 03-20-2021 BP CONTROLLED (<130/80) BP CONTROLLED (<130/80) [facility] Start: 02-28-2021 ADVANCE DIRECTIVE DISCUSSION ADVANCE DIRECTIVE DISCUSSION [facility] Start: 02-28-2021 DEPRESSION ASSESSMENT DEPRESSION ASSESSMENT [facility] Start: 06-10-2016 DTaP/Tdap/Td vaccine (1 - Tdap) DTaP/Tdap/Td vaccine (1 - Tdap) [facility] Start: 06-10-2016 Urine microalbumin profile [facility] Start: 2011 Respiratory Syncytial Virus (RSV) or age 60 yrs+ (1 - 1-dose 60+ series) Respiratory Syncytial Virus (RSV) or age 60 yrs+ (1 - 1-dose 60+ series) [facility] Start: 2011 RSV Vaccine (1 - 1-dose 60+ series) RSV Vaccine (1 - 1-dose 60+ series) [facility] Start: 2011 RSV Vaccine (1 - Risk 60-74 years 1-dose series) RSV Vaccine (1 - Risk 60-74 years 1-dose series) [facility] Start: 2001 Screening for malignant neoplasm of breast Breast cancer screen [facility] Start: 2001 Shingles vaccine (1 of 2) Shingles vaccine (1 of 2) [facility] Start: 2001 SHINGRIX VACCINE (1 of 2) SHINGRIX VACCINE (1 of 2) [facility] Start: 1996 COLOGUARD (FIT-DNA) COLOGUARD (FIT-DNA) [facility] Start: [address] COLONOGRAPHY [facility] Start: 1996 FECAL OCCULT BLOOD FECAL OCCULT BLOOD [facility] Start: 1996 Screening for malignant neoplasm of colon [facility] Start: 1996 SIGMOIDOSCOPY SIGMOIDOSCOPY [facility] Start: 1969 Anxiety Screening Anxiety Screening [facility] Start: 1969 Depression Screening Depression Screening [facility] Start: 1969 Hepatitis C screening Hepatitis C screen [facility] Start: 1963 Depression Screen Depression Screen [facility] Start: 1961 Lipid panel Lipids [facility] Start: 1951 COVID-19 VACCINE (#1) COVID-19 VACCINE (#1) [facility] End: 08-24-2023 CBC W Auto Differential panel - Blood CBC auto differential Lab Routine Tomorrow AM for 99 Occurrences starting 05/18/2023 until 08/24/2023, 2 completed [facility] Comment on above: Tomorrow AM for 99 Occurrences starting 05/18/2023 until 08/24/2023, 2 completed End: 08-24-2023 Comprehensive Metabolic Panel w/ Reflex to MG Comprehensive Metabolic Panel w/ Reflex to MG Lab Routine Tomorrow AM for 99 Occurrences starting 05/18/2023 until 08/24/2023, 2 completed [facility] Comment on above: Tomorrow AM for 99 Occurrences starting 05/18/2023 until 08/24/2023, 2 completed End: 12-11-2022 Ct orbit sella/post fossa/ear w/o contrast matrl CT TEMP BONES WO IVCON Radiology Routine Pulsatile tinnitus, left ear Lightheadedness 1 Occurrences starting 11/11/2021 until 12/11/2022 [facility] Work Phone: Comment on above: 1 Occurrences starting 11/11/2021 until 12/11/2022 End: 05-18-2023 Culture, Urine [facility] Comment on above: One Time for 1 Occurrences starting 04/29 until 05/18/2023 End: 02-02-2025 DBT Breast - bilateral screening ESTHER SCREENING W EJFF Radiology Routine Encounter for screening mammogram for breast cancer 1 Occurrences starting 01/04/2024 until 02/02/2025 [facility] Work Phone: Comment on above: 1 Occurrences starting 01/04/2024 until 02/02/2025 End: 12-02-2024 DXA Skeletal system.axial Views for bone density and vertebral fracture DXA-AXIAL SKELETON WITH VFA Radiology Routine Asymptomatic postmenopausal status 1 Occurrences starting 11/03/2023 until 12/02/2024 [facility] Work Phone: Comment on above: 1 Occurrences starting 11/03/2023 until 12/02/2024 End: 08-11-2022 ECG COMPLETE ECG COMPLETE ECG Routine Paroxysmal atrial fibrillation (HCC) 1 Occurrences starting 08/11/2021 until 08/11/2022 [facility] Work Phone: Comment on above: 1 Occurrences starting 08/11/2021 until 08/11/2022 End: 01-26-2023 ECG COMPLETE ECG COMPLETE ECG Routine Paroxysmal atrial fibrillation (HCC) History of ST elevation myocardial infarction (STEMI) PAF (paroxysmal atrial fibrillation) (HCC) 1 Occurrences starting 01/26/2022 until 01/26/2023 [facility] Work Phone: Comment on above: 1 Occurrences starting 01/26/2022 until 01/26/2023 End: 07-29-2023 ECG COMPLETE ECG COMPLETE ECG Routine Paroxysmal atrial fibrillation (HCC) Hypertension, unspecified type Atherosclerotic peripheral vascular disease with intermittent claudication (HCC) 1 Occurrences starting 07/28/2022 until 07/29/2023 [facility] Work Phone: Comment on above: 1 Occurrences starting 07/28/2022 until 07/29/2023 ECG COMPLETE ECG COMPLETE ECG 01/28/2023 10:20 AM EST [facility] End: 03-05-2025 ECG COMPLETE ECG COMPLETE ECG Routine EKG abnormalities 1 Occurrences starting 03/05/2024 until 03/05/2025 [facility] Work Phone: Comment on above: 1 Occurrences starting 03/05/2024 until 03/05/2025 End: 05-18-2023 Echo (TTE) complete (PRN contrast/bubble/strain/3 D) Echo (TTE) complete (PRN contrast/bubble/strain/3D ) CV Echocardiography Routine Chest pain, unspecified type Right sided abdominal pain Coronary artery disease involving [place] coronary artery of [place] heart without angina pectoris Mixed hyperlipidemia Essential hypertension Acute deep vein thrombosis (DVT) of distal vein of right lower extremity (HCC) One Time for 1 Occurrences starting 05/18/2023 until 05/18/2023 [facility] Comment on above: One Time for 1 Occurrences starting 04/29 until 05/18/2023 End: 07-03-2024 ECHO TRANSESOPHAGEAL ECHO TRANSESOPHAGEAL Cardiology Routine Atrial fibrillation, persistent (HCC) 1 Occurrences starting 07/04/2023 until 07/03/2024 [facility] Comment on above: 1 Occurrences starting 07/04/2023 until 07/03/2024 EKG 12 Lead EKG 12 Lead ECG Routine 05/19/2023 5:18 AM EDT [facility] End: 05-19-2023 Hemoglobin A1c/Hemoglobin.total in Blood Hemoglobin A1C Lab Routine Tomorrow AM for 1 Occurrences starting 05/19/2023 until 05/19/2023 [facility] Comment on above: Tomorrow AM for 1 Occurrences starting 0 05/19/2023 until 05/19/2023 Hemoglobin A1c/Hemoglobin.total in Blood Hemoglobin A1C Lab Routine 05/19/2023 5:30 AM EDT [facility] End: 05-19-2023 Lipid panel Lipid Panel Lab Routine Tomorrow AM for 1 Occurrences starting 05/19/2023 until 05/19/2023 [facility] Comment on above: Tomorrow AM for 1 Occurrences starting 0 05/19/2023 until 05/19/2023 Lipid panel Lipid Panel Lab Routine 05/19/2023 5:30 AM EDT [facility] End: 04-02-2023 ESTHER SCREENING ESTHER SCREENING Radiology Routine Encounter for screening mammogram for breast cancer 1 Occurrences starting 03/03/2022 until 04/02/2023 [facility] Work Phone: Comment on above: 1 Occurrences starting 03/03/2022 until 04/02/2023 End: 03-03-2024 ESTHER SCREENING ESTHER SCREENING Radiology Routine Encounter for screening mammogram for breast cancer 1 Occurrences starting 02/02/2023 until 03/03/2024 [facility] Work Phone: Comment on above: 1 Occurrences starting 02/02/2023 until 03/03/2024 MR Abdomen WO and W contrast IV MRI ABDOMEN W WO CONTRAST MRCP Imaging Routine 05/18/2023 1:05 PM EDT [facility] OUTSIDE VENDOR CARDI AC OUTPATIENT EXTENDED RHYTHM RECORDING (WITHOUT TELEMETRY) OUTSIDE VENDOR CARDIAC OUTPATIENT EXTENDED RHYTHM RECORDING (WITHOUT TELEMETRY) Holter Routine Paroxysmal atrial fibrillation (HCC) Ordered: 06/26/2021 [facility] Work Phone: Comment on above: Ordered: 06/26/2021 OUTSIDE VENDOR CARDI AC OUTPATIENT EXTENDED RHYTHM RECORDING (WITHOUT TELEMETRY) OUTSIDE VENDOR CARDIAC OUTPATIENT EXTENDED RHYTHM RECORDING (WITHOUT TELEMETRY) Holter Routine Paroxysmal atrial fibrillation (HCC) History of ST elevation myocardial infarction (STEMI) PAF (paroxysmal atrial fibrillation) (HCC) Ordered: 01/26/2022 [facility] Work Phone: Comment on above: Ordered: 01/26/2022 OUTSIDE VENDOR CARDI AC OUTPATIENT EXTENDED RHYTHM RECORDING (WITHOUT TELEMETRY) OUTSIDE VENDOR CARDIAC OUTPATIENT EXTENDED RHYTHM RECORDING (WITHOUT TELEMETRY) Holter Routine Paroxysmal atrial fibrillation (HCC) Ordered: 01/28/2023 [facility] Work Phone: Comment on above: Ordered: 01/28/2023 OUTSIDE VENDOR CARDI AC OUTPATIENT EXTENDED RHYTHM RECORDING (WITHOUT TELEMETRY) OUTSIDE VENDOR CARDIAC OUTPATIENT EXTENDED RHYTHM RECORDING (WITHOUT TELEMETRY) Holter Routine Atrial fibrillation, persistent (HCC) Hypertension, unspecified type Atherosclerotic peripheral vascular disease with intermittent claudication (HCC) History of ST elevation myocardial infarction (STEMI) PAF (paroxysmal atrial fibrillation) (HCC) Ordered: 08/05/2023 [facility] Comment on above: Ordered: 08/05/2023 Oxygen therapy [[facility] Data Set] Initiate Oxygen Therapy Protocol Respiratory Care Routine As Needed until discontinued starting 05/17/2023 [facility] Comment on above: As Needed until discontinued starting End: 10-30-2022 PVR ANK PRESS [facility] PVR ANK PRESS [facility] Vascular Lab Routine PVD (peripheral vascular disease) ([facility]) 1 Occurrences starting 10/30/2021 until 10/30/2022 [facility] Work Phone: Comment on above: 1 Occurrences starting 10/30/2021 until 10/30/2022 End: 11-16-2023 PVR ANK PRESS [facility] PVR ANK PRESS [facility] Vascular Lab Routine PVD (peripheral vascular disease) (HCC) Aortoiliac occlusive disease (HCC) Carotid artery stenosis, asymptomatic, bilateral 1 Occurrences starting 11/15/2022 until 11/16/2023 [facility] Work Phone: Comment on above: 1 Occurrences starting 11/15/2022 until 11/16/2023 End: 02-25-2023 Radiologic exam chest 2 views XR CHEST 2V FRONTAL/LAT Radiology Routine Paroxysmal atrial fibrillation (HCC) History of ST elevation myocardial infarction (STEMI) PAF (paroxysmal atrial fibrillation) (HCC) 1 Occurrences starting 01/26/2022 until 02/25/2023 [facility] Work Phone: Comment on above: 1 Occurrences starting 01/26/2022 until 02/25/2023 End: 01-15-2024 [facility] Audiology Routine Pulsatile tinnitus, left ear 1 Occurrences starting 01/14/2023 until 01/15/2024 [facility] Work Phone: Comment on above: 1 Occurrences starting 01/14/2023 until 01/15/2024 End: 11-16-2023 US ABD AORTA COMPLETE [facility] US ABD AORTA COMPLETE [facility] Vascular Lab Routine PVD (peripheral vascular disease) (HCC) Aortoiliac occlusive disease (HCC) Carotid artery stenosis, asymptomatic, bilateral 1 Occurrences starting 11/15/2022 until 11/16/2023 [facility] Work Phone: Comment on above: 1 Occurrences starting 11/15/2022 until 11/16/2023 End: 12-02-2024 US Abdomen limited US ABDOMEN LTD Radiology Routine Abdominal wall bulge 1 Occurrences starting 11/03/2023 until 12/02/2024 [facility] Comment on above: 1 Occurrences starting 11/03/2023 until 12/02/2024 US Abdomen limited US ABDOMEN LT D Radiology Routine Abdominal wall bulge 11/21/2023 11:14 AM EDT [facility] Work Phone: End: 02-15-2025 US Abdominal Aorta US ABD AORTA COMPLETE [facility] Vascular Lab Routine PVD (peripheral vascular disease) (HCC) 1 Occurrences starting 02/16/2024 until 02/15/2025 [facility] Work Phone: Comment on above: 1 Occurrences starting 02/16/2024 until 02/15/2025 End: 11-16-2023 US CAROTID ARTERIES [facility] US CAROTID ARTERIES [facility] Vascular Lab Routine PVD (peripheral vascular disease) (HCC) Aortoiliac occlusive disease (HCC) Carotid artery stenosis, asymptomatic, bilateral 1 Occurrences starting 11/15/2022 until 11/16/2023 [facility] Work Phone: Comment on above: 1 Occurrences starting 11/15/2022 until 11/16/2023 End: 12-09-2024 US Hip - right US HIP RIGHT Radiology Routine Abdominal wall bulge 1 Occurrences starting 11/10/2023 until 12/09/2024 [facility] Work Phone: Comment on above: 1 Occurrences starting 11/10/2023 until 12/09/2024 End: 12-02-2024 US Pelvis limited US PELVIS LTD Radiology Routine Abdominal wall bulge 1 Occurrences starting 11/03/2023 until 12/02/2024 [facility] Comment on above: 1 Occurrences starting 11/03/2023 until 12/02/2024 End: 02-15-2025 US.doppler Extremity arteries - bilateral for physiologic artery study PVR ANK PRESS [facility] Vascular Lab Routine PVD (peripheral vascular disease) (HCC) 1 Occurrences starting 02/16/2024 until 02/15/2025 [facility] Comment on above: 1 Occurrences starting 02/16/2024 until 02/15/2025 [facility] Immunizations Immunization Date Immunization Notes Care Provider Conor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 (statuses as of 11/11/2021) [facility] of Past illness Narrative* Problem [...] of this encounter (statuses as of 11/16/2021) [facility] of Past illness Narrative* Problem [...] of this encounter (statuses as of 12/08/2021) [facility] of Past illness Narrative* Problem [...] of this encounter (statuses as of 12/08/2021) [facility] illness Narrative* Problem [...] of this encounter (statuses as of 12/09/2021) [facility] illness Narrative* Problem [...] of this encounter (statuses as of 12/17/2021) [facility] Narrative* Problem [...] of this encounter (statuses as of 02/02/2022) [facility] Narrative* Problem [...] of this encounter (statuses as of 03/08/2022) [facility] Narrative* Problem [...] of this encounter (statuses as of 03/11/2022) [facility] Narrative* Problem [...] of this encounter (statuses as of 05/27/2022) [facility] Narrative* Problem [...] of this encounter (statuses as of 08/02/2022) [facility] Narrative* Problem [...] of this encounter (statuses as of 10/21/2022) [facility] Narrative* Problem [...] of this encounter (statuses as of 11/15/2022) [facility] Narrative* Problem [...] of this encounter (statuses as of 11/15/2022) [facility] Narrative* Problem [...] of this encounter (statuses as of 01/14/2023) [facility] Narrative* Problem [...] of this encounter (statuses as of 01/28/2023) [facility] Narrative* Problem [...] of this encounter (statuses as of 02/02/2023) [facility] Narrative* Problem [...] of this encounter (statuses as of 02/07/2023) [facility] Narrative* Problem [...] of this encounter (statuses as of 04/01/2023) [facility] Narrative* Problem [...] of this encounter (statuses as of 05/20/2023) [facility] Narrative* Problem [...] of this encounter (statuses as of 05/31/2023) [facility] Narrative* Problem [...] of this encounter (statuses as of 05/31/2023) [facility] Narrative* Problem [...] of this encounter (statuses as of 06/03/2023) [facility]* Diagnosis Paroxysmal atrial fibrillation (HCC)- Primary Atrial fibrillation [facility] Diagnosis Paroxysmal atrial fibrillation (HCC)- Primary Atrial fibrillation Coronary artery disease involving [place] coronary artery of [place] heart without angina pectoris Hypertension, unspecified type Mixed hyperlipidemia Non-rheumatic mitral regurgitation Mitral valve disorders PVD (peripheral vascular disease) (HCC) Peripheral vascular disease, unspecified documented in this encounter [facility]* Diagnosis Mixed hyperlipidemia Coronary artery disease involving [place] coronary artery of [place] heart without angina pectoris documented in this encounter [facility]* Diagnosis Tinnitus, unspecified laterality- Primary Tension-type headache, not intractable, unspecified chronicity pattern documented in this encounter [facility]* Diagnosis Tension-type headache, not intractable, unspecified chronicity pattern- Primary Tinnitus, unspecified laterality Bilateral carotid artery stenosis Occlusion and stenosis of carotid artery without mention of cerebral infarction documented [facility] this [facility]* Diagnosis PVD (peripheral vascular disease) (HCC)- Primary Peripheral vascular disease, unspecified documented in this encounter [facility]* Diagnosis Pulsatile tinnitus, left ear- Primary Lightheadedness Dizziness and giddiness Tinnitus of left ear Unspecified tinnitus Tension-type headache, not intractable, unspecified chronicity pattern [facility]* Diagnosis Tobacco abuse Tobacco use disorder [facility]* Diagnosis Essential hypertension Unspecified essential hypertension [facility]* Diagnosis 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 Carotid artery stenosis, asymptomatic, bilateral [facility]* Diagnosis Paroxysmal atrial fibrillation (HCC)- Primary Atrial fibrillation History of ST elevation myocardial infarction (STEMI) Old myocardial infarction PAF (paroxysmal atrial fibrillation) (HCC) Atrial fibrillation [facility]* Diagnosis Encounter for screening mammogram for breast cancer [facility]* Diagnosis Paroxysmal atrial fibrillation (HCC) Atrial fibrillation [facility]* Diagnosis Paroxysmal atrial fibrillation (HCC)- Primary Atrial fibrillation Hypertension, unspecified type Atherosclerotic peripheral vascular disease with intermittent claudication (HCC) Atherosclerosis of [place] arteries of the extremities with intermittent claudication 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 documented in this encounter [facility]* Diagnosis Encounter for Medicare annual wellness exam- Primary Routine general medical examination at a health care facility Coronary artery disease involving [place] coronary artery of [place] heart without angina pectoris Mixed hyperlipidemia Paroxysmal atrial fibrillation (HCC) Atrial fibrillation Essential hypertension Unspecified essential hypertension Atherosclerotic peripheral vascular disease with intermittent claudication (HCC) Atherosclerosis of [place] arteries of the extremities with intermittent claudication CKD (chronic kidney disease) stage 4, GFR 15-29 ml/min (HCC) Chronic kidney disease, Stage IV (severe) documented in this encounter [facility] note* Diagnosis Benign hypertension with chronic kidney disease, stage III (HCC)- Primary 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 through stage IV, or unspecified Stage 3b chronic kidney disease (HCC) Hyperlipidemia, unspecified hyperlipidemia type documented in this encounter [facility] note* Diagnosis Carotid artery stenosis, asymptomatic, bilateral- Primary PVD (peripheral vascular disease) (HCC) Peripheral vascular disease, unspecified 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 documented in this encounter [facility] note* Diagnosis APPOINTMENT CANCELLED- Primary Pulsatile tinnitus, left ear documented in this encounter [facility] note* Diagnosis Essential hypertension Unspecified essential hypertension documented in this encounter [facility] note* Diagnosis Paroxysmal atrial fibrillation (HCC)- Primary Atrial fibrillation 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 documented in this encounter [facility] note* Diagnosis Encounter for screening mammogram for breast cancer documented in this encounter [facility] note* Diagnosis Right sided abdominal pain- Primary Abdominal pain, unspecified site Chest pain, unspecified type Right sided abdominal pain Abdominal pain, unspecified site Coronary artery disease involving [place] coronary artery of [place] heart without angina pectoris Mixed hyperlipidemia Essential hypertension Unspecified essential hypertension Acute deep vein thrombosis (DVT) of distal vein of right lower extremity (HCC) Essential hypertension Unspecified essential hypertension Coronary artery disease involving [place] coronary artery of [place] heart without angina pectoris documented in this encounter [facility] note* Diagnosis Medication management- Primary Encounter for long-term (current) use of other medications documented in this encounter [facility] note* Diagnosis Chronic right hip pain- Primary Pain in joint, pelvic region and thigh Spinal stenosis of lumbar region, unspecified whether neurogenic claudication present documented in this encounter [facility] note* Diagnosis Paroxysmal atrial fibrillation (HCC)- Primary Atrial fibrillation Acute on chronic heart failure with preserved ejection fraction (HCC) [facility] encounter [facility]* Diagnosis Atrial fibrillation, persistent (HCC)- Primary Atrial fibrillation [facility]* Diagnosis Atrial fibrillation, persistent (HCC)- Primary Atrial fibrillation [facility]* Diagnosis Coronary artery disease involving [place] coronary artery of [place] heart without angina pectoris- Primary documented in this [facility]* Diagnosis Hypertension, unspecified type- Primary Hyperlipidemia, unspecified hyperlipidemia type Paroxysmal atrial fibrillation (HCC) Atrial fibrillation Coronary artery disease involving [place] coronary artery of [place] heart without angina pectoris documented in this encounter [facility]* Diagnosis Medication refill [Z76.0]- Primary Issue of repeat prescriptions documented [facility] this encounter [facility]* Diagnosis Follow-up exam- Primary Unspecified follow-up examination Hypertension, unspecified type CKD (chronic kidney disease) stage 4, GFR 15-29 ml/min (HCC) Chronic kidney disease, Stage IV (severe) Paroxysmal atrial fibrillation (HCC) Atrial fibrillation Mixed hyperlipidemia documented in this encounter [facility]* Diagnosis Paroxysmal atrial fibrillation (HCC)- Primary Atrial fibrillation [facility] this [facility]* Diagnosis Hypertension, unspecified type Atrial fibrillation, unspecified type (HCC) documented [facility] this encounter [facility]* Diagnosis Atrial fibrillation, persistent (HCC)- Primary Atrial fibrillation Hypertension, unspecified type Atherosclerotic peripheral vascular disease with intermittent claudication (HCC) Atherosclerosis of [place] arteries of the extremities with intermittent claudication History of ST elevation myocardial infarction (STEMI) Old myocardial infarction PAF (paroxysmal atrial fibrillation) (HCC) Atrial fibrillation Unspecified severe protein-calorie malnutrition (HCC) 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 Atrial fibrillation, unspecified type (HCC) documented in this encounter [facility]* Diagnosis History of ST elevation myocardial infarction (STEMI)- Primary Old myocardial infarction Hypertension, unspecified type Atherosclerotic peripheral vascular disease with intermittent claudication (HCC) Atherosclerosis of [place] arteries of the extremities with intermittent claudication Coronary artery disease involving [place] coronary artery of [place] heart without angina pectoris Paroxysmal atrial fibrillation (HCC) Atrial fibrillation CKD (chronic kidney disease) stage 4, GFR 15-29 ml/min (HCC) Chronic kidney disease, Stage IV (severe) Atrial fibrillation, unspecified type (HCC) [facility] noteNo assessment information availableMercy [facility] Work Phone: Evaluation note* Diagnosis Atherosclerotic peripheral vascular disease with intermittent claudication (HCC)- Primary Atherosclerosis of [place] arteries of the extremities with intermittent claudication Atrial fibrillation, unspecified type (HCC) [facility]* Diagnosis Paroxysmal atrial fibrillation (HCC)- Primary Atrial fibrillation Coronary artery disease involving [place] coronary artery of [place] heart without angina pectoris Hypertension, unspecified type Mixed hyperlipidemia Non-rheumatic mitral regurgitation Mitral valve disorders PVD (peripheral vascular disease) (HCC) Peripheral vascular disease, unspecified Atrial fibrillation, unspecified type (HCC) [facility]* Diagnosis Stage 3b chronic kidney disease (HCC)- Primary Atrial fibrillation, unspecified type (HCC) [facility]* Diagnosis Abdominal wall bulge- Primary Abdominal or pelvic swelling, mass or lump, unspecified site Atrial fibrillation, unspecified type (HCC) [facility]* Diagnosis Medicare annual wellness visit, subsequent- [...] Stage IV (severe) Coronary artery disease involving [place] coronary artery of [place] heart without angina pectoris Secondary renal hyperparathyroidism (HCC) Secondary hyperparathyroidism (of renal origin) Abdominal wall bulge Abdominal or pelvic swelling, mass or lump, unspecified site Gait instability Abnormality of gait Atrial fibrillation, unspecified type (HCC) documented in this encounter [facility] emergency [facility] note* Diagnosis Paroxysmal atrial fibrillation (HCC)- Primary Atrial fibrillation Atrial fibrillation, unspecified type (HCC) documented in this encounter [facility]* Diagnosis Benign hypertension with chronic kidney disease, stage III (HCC)- Primary 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 through stage IV, or unspecified Stage 3b chronic kidney disease (HCC) Hyperlipidemia, unspecified hyperlipidemia type Vitamin D deficiency Unspecified vitamin D deficiency Atrial fibrillation, unspecified type (HCC) documented in this encounter [facility] note* Diagnosis Abdominal wall bulge Abdominal or pelvic swelling, mass or lump, unspecified site Atrial fibrillation, unspecified type (HCC) documented in this encounter [facility] note* Diagnosis Other specified abdominal hernia without obstruction or gangrene- Primary Atrial fibrillation, unspecified type (HCC) documented in this encounter [facility] note* Diagnosis Benign hypertension with chronic kidney disease, stage III (HCC)- Primary 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 through stage IV, or unspecified Atrial fibrillation, unspecified type (HCC) documented in this encounter [facility] note* Diagnosis Benign hypertension with chronic kidney disease, stage III (HCC)- Primary 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 through stage IV, or unspecified Atrial fibrillation, unspecified type (HCC) documented in this encounter [facility] note* Diagnosis Pain in right foot Pain in limb documented in this encounter [facility] note* Diagnosis Right inguinal hernia- Primary Inguinal hernia without mention of obstruction or gangrene, unilateral or unspecified, (not specified as recurrent) documented in this encounter [facility] note* Diagnosis Right inguinal hernia- Primary Inguinal hernia without mention of obstruction or gangrene, unilateral or unspecified, (not specified as recurrent) Unilateral inguinal hernia without obstruction or gangrene, recurrence not specified documented in this encounter [facility] note* Diagnosis Encounter for screening mammogram for breast cancer Unilateral inguinal hernia without obstruction or gangrene, recurrence not specified documented in this encounter [facility] note* Diagnosis Pre-op examination- Primary Preoperative examination, unspecified Hypertension, unspecified type Mixed hyperlipidemia Coronary artery disease involving [place] coronary artery of [place] heart without angina pectoris PAF (paroxysmal atrial fibrillation) (HCC) Atrial fibrillation Atherosclerotic peripheral vascular disease with intermittent claudication (HCC) Atherosclerosis of [place] arteries of the extremities with intermittent claudication Former smoker Personal history of tobacco use, presenting hazards to health CKD (chronic kidney disease) stage 4, GFR 15-29 ml/min (HCC) Chronic kidney disease, Stage IV (severe) Secondary renal hyperparathyroidism (HCC) Secondary hyperparathyroidism (of renal origin) Non-rheumatic mitral regurgitation Mitral valve disorders History of DVT (deep vein thrombosis) Personal history of venous thrombosis and embolism Unilateral inguinal hernia without obstruction or gangrene, recurrence not specified * Assessment & Plan Note - Elida Arnold APRN.CNP - 02/06/2024 6:05 PM EST Associated Problem(s): History of DVT (deep vein thrombosis) Assessment: states h/o DVT following surgery to correct thoracic verterbrae fractures in 2009. No recurrence of DVT * Assessment & Plan Note - Elida Arnold APRN.NE - 02/06/2024 6:01 PM EST Associated Problem(s): Non-rheumatic mitral regurgitation Assessment: moderate 2+ per ECHO 05/19/21 * Assessment & Plan Note - Elida Arnold APRN.CNP - 02/06/2024 6:01 PM EST Associated Problem(s): Secondary renal hyperparathyroidism (HCC) Assessment: Calcium, Total Date Value Ref Range Status 11/22/2023 8.8 8.5 - 10.2 mg/dL Final * Assessment & Plan Note - Elida Arnold APRN.CNP - 02/06/2024 6:00 PM EST Associated Problem(s): CKD (chronic kidney disease) stage 4, GFR 15-29 ml/min (HCC) Assessment: Stable, asymptomatic, follows with Kidney medicine, Last Office Visit: 11/21/23 BUN Date Value Ref Range Status 11/22/2023 37 (H) 7 - 21 mg/dL Final 11/08/2023 37 (H) 7 - 21 mg/dL Final 10/21/2023 36 (H) 7 - 21 mg/dL Final Creatinine Date Value Ref Range Status 11/22/2023 2.14 (H) 0.58 - 0.96 mg/dL Final 11/08/2023 2.26 (H) 0.58 - 0.96 mg/dL Final 10/21/2023 2.13 (H) 0.58 - 0.96 mg/dL Final * Assessment & Plan Note - Elida Arnold APRN.CNP - 02/06/2024 6:00 PM EST Associated Problem(s): Former smoker Assessment: reports that she quit smoking about 14 years ago. Her smoking use included cigarettes. She started smoking about 64 years ago. She has a 75 pack- year smoking history. She has never used smokeless tobacco. * Assessment & Plan Note - Elida Arnold APRN.CNP - 02/06/2024 5:59 PM EST Associated Problem(s): Atherosclerotic peripheral vascular disease with intermittent claudication (HCC) Assessment: stable, asymptomatic Follows annually with Vascular, Last Office Visit: 02/25/23 Status post Percutaneous vascular stent and angioplasty of right common iliac artery. Percutaneous angioplasty of left common iliac artery. * Assessment & Plan Note - Elida Arnold APRN.CNP - 02/06/2024 5:58 PM EST Associated Problem(s): PAF (paroxysmal atrial fibrillation) (HCC) Assessment: s/p ablation and WATCHMAN FLX device in the left atrial appendage (12/02/23) OK to hold Eliquis [address] Deandre Patel for Dr. Stokes (Cardiology), in [place] 02/03/24. Patient is RRR, stable, denies cardiac symptoms at [facility] visit * Assessment & Plan Note - Elida Arnold APRN.CNP - 02/06/2024 5:56 PM EST Associated Problem(s): Coronary artery disease involving [place] coronary artery of [place] heart without angina pectoris Assessment: Denies any new or worsening cardiac symptoms. Stable and compliant with current medications Follows with cardiology Dr Gu, last OV 11/08/23: Prior stent noted, no signs of angina at this time. Hx of stent: x1 GIO in LAD in 2009. Anticoagulant: eliquis for afib (no aspirin currently) Ejection Fraction - Result: 58 % Date: 05/19/2021 Time: 10:38:45 * Assessment & Plan Note - Elida Arnold APRN.CNP - 02/06/2024 5:52 PM EST Associated Problem(s): Hyperlipidemia Assessment: lifestyle modifications encouraged * Assessment & Plan Note - Elida Arnold APRN.CNP - 02/06/2024 5:52 PM EST Associated Problem(s): Hypertension Assessment: stable and compliant with current medications Last 5 Encounter BP Readings: Date: BP: 02/06/2024 112/68[MAP 82[ 01/02/2024 126/58 12/02/2023 143/63 11/21/2023 111/67 11/08/2023 132/69 documented in this encounter [facility] note* Diagnosis Paroxysmal atrial fibrillation (HCC)- Primary Atrial fibrillation Pre-op examination- Primary Preoperative examination, unspecified Hypertension, unspecified type Mixed hyperlipidemia Coronary artery disease involving [place] coronary artery of [place] heart without angina pectoris PAF (paroxysmal atrial fibrillation) ([facility]) Atrial fibrillation Atherosclerotic peripheral vascular disease with intermittent claudication ([facility]) Atherosclerosis of [place] arteries of the extremities with intermittent claudication Former smoker Personal history of tobacco use, presenting hazards to health CKD (chronic kidney disease) stage 4, GFR 15-29 ml/min ([facility]) Chronic kidney disease, Stage IV (severe) Secondary renal hyperparathyroidism (HCC) Secondary hyperparathyroidism (of renal origin) Non-rheumatic mitral regurgitation Mitral valve disorders History of DVT (deep vein thrombosis) Personal history of venous thrombosis and embolism documented in this encounter [facility] note* Diagnosis Pre-op examination- Primary Preoperative examination, unspecified Hypertension, unspecified type Mixed hyperlipidemia Coronary artery disease involving [place] coronary artery of [place] heart without angina pectoris PAF (paroxysmal atrial fibrillation) (HCC) Atrial fibrillation Atherosclerotic peripheral vascular disease with intermittent claudication (HCC) Atherosclerosis of [place] arteries of the extremities with intermittent claudication Former smoker Personal history of tobacco use, presenting hazards to health CKD (chronic kidney disease) stage 4, GFR 15-29 ml/min (HCC) Chronic kidney disease, Stage IV (severe) Secondary renal hyperparathyroidism (HCC) Secondary hyperparathyroidism (of renal origin) Non-rheumatic mitral regurgitation Mitral valve disorders History of DVT (deep vein thrombosis) Personal history of venous thrombosis and embolism Hypertension, unspecified type documented in this encounter [facility] emergency department note* Diagnosis Pre-op examination- Primary Preoperative examination, unspecified Hypertension, unspecified type Mixed hyperlipidemia Coronary artery disease involving [place] coronary artery of [place] heart without angina pectoris PAF (paroxysmal atrial fibrillation) (HCC) Atrial fibrillation Atherosclerotic peripheral vascular disease with intermittent claudication (HCC) Atherosclerosis of [place] arteries of the extremities with intermittent claudication Former smoker Personal history of tobacco use, presenting hazards to health CKD (chronic kidney disease) stage 4, GFR 15-29 ml/min ([facility]) Chronic kidney disease, Stage IV (severe) Secondary renal hyperparathyroidism (HCC) Secondary hyperparathyroidism (of renal origin) Non-rheumatic mitral regurgitation Mitral valve disorders History of DVT (deep vein thrombosis) Personal history of venous thrombosis and embolism 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 PVD (peripheral vascular disease) (HCC) Peripheral vascular disease, unspecified documented in this encounter [facility] note* Diagnosis Pre-op examination- Primary Preoperative examination, unspecified Hypertension, unspecified type Mixed hyperlipidemia Coronary artery disease involving [place] coronary artery of [place] heart without angina pectoris PAF (paroxysmal atrial fibrillation) (HCC) Atrial fibrillation Atherosclerotic peripheral vascular disease with intermittent claudication (HCC) Atherosclerosis of [place] arteries of the extremities with intermittent claudication Former smoker Personal history of tobacco use, presenting hazards to health CKD (chronic kidney disease) stage 4, GFR 15-29 ml/min (HCC) Chronic kidney disease, Stage IV (severe) Secondary renal hyperparathyroidism (HCC) Secondary hyperparathyroidism (of renal origin) Non-rheumatic mitral regurgitation Mitral valve disorders History of DVT (deep vein thrombosis) Personal history of venous thrombosis and embolism EKG abnormalities- Primary Nonspecific abnormal electrocardiogram (ECG) (EKG) [facility] Pre-op examination- Primary Preoperative examination, unspecified Hypertension, unspecified type Mixed hyperlipidemia Coronary artery disease involving [place] coronary artery of [place] heart without angina pectoris PAF (paroxysmal atrial fibrillation) (HCC) Atrial fibrillation Atherosclerotic peripheral vascular disease with intermittent claudication (HCC) Atherosclerosis of [place] arteries of the extremities with intermittent claudication Former smoker Personal history of tobacco use, presenting hazards to health CKD (chronic kidney disease) stage 4, GFR 15-29 ml/min (HCC) Chronic kidney disease, Stage IV (severe) Secondary renal hyperparathyroidism (HCC) Secondary hyperparathyroidism (of renal origin) Non-rheumatic mitral regurgitation Mitral valve disorders History of DVT (deep vein thrombosis) Personal history of venous thrombosis and embolism PAF (paroxysmal atrial fibrillation) (HCC)- Primary Atrial fibrillation 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 [facility] Diagnosis Pre-op examination- Primary Preoperative examination, unspecified Hypertension, unspecified type Mixed hyperlipidemia Coronary artery disease involving [place] coronary artery of [place] heart without angina pectoris PAF (paroxysmal atrial fibrillation) (HCC) Atrial fibrillation Atherosclerotic peripheral vascular disease with intermittent claudication (HCC) Atherosclerosis of [place] arteries of the extremities with intermittent claudication Former smoker Personal history of tobacco use, presenting hazards to health CKD (chronic kidney disease) stage 4, GFR 15-29 ml/min (HCC) Chronic kidney disease, Stage IV (severe) Secondary renal hyperparathyroidism (HCC) Secondary hyperparathyroidism (of renal origin) Non-rheumatic mitral regurgitation Mitral valve disorders History of DVT (deep vein thrombosis) Personal history of venous thrombosis and embolism S/P transesophageal echocardiogram (HAFSA)- Primary [facility] Narrative History of Present Illness not supported for this document type No History of Present Illness [facility] Work Phone: Patient problem outcome Narrative Includes: Evaluations & Outcomes for active Goals No Outcomes [facility] Work Phone: Reason for referral (narrative)* Outpatient Procedure (Routine) - Closed Specialty Diagnoses / Procedures Referred By Manuel t [facility] Diagnoses Paroxysmal atrial fibrillation (HCC) Procedures ECG COMPLETE ECG ROUTINE ECG W/LEAST 12 LDS W/I&R Rupesh Gu DO [address] [place] [address] [facility] [address] [address] Referral ID Status Reason Start Date Expiration Date V isits Requested Visits Authorized [id number] Closed Auto-Generate d Referral 08/11/2021 08/11/2022 1 1 [facility] for referral (narrative)* Outpatient Procedure (Routine) - Authorized Specialty Diagnoses / Procedures [facility] To Contact [facility] Diagnoses PVD (peripheral vascular disease) ([facility]) Procedures PVR ANK PRESS LINSEY VAS LAB NON-INVAS PHYSIOLOGIC STD EXTREMITY ART 2 LEVEL Renae German, LUCIAN.SERVICE CENTER SPECIALIST [address] [address] [place] [address] [address] Referral ID Status Reason Start Date Expiration Date Visits Requested Visits Authorized [id number] Authorized Auto-Generat ed Referral 10/30/2021 10/30/2022 1 1 [facility] for referral (narrative)* Outpatient Procedure (Routine) - Pending Review Specialty Diagnoses / Procedures [facility] Referred To Contact [facility] Diagnoses Paroxysmal atrial fibrillation (HCC) History of ST elevation myocardial infarction (STEMI) PAF (paroxysmal atrial fibrillation) (HCC) Procedures ECG COMPLETE ECG ROUTINE ECG W/LEAST 12 LDS W/I&[place] [address] [place] [address] [address] Referral ID Status Reason Start Date Expiration Date Visits Requested Visits Authorized [id number] Pending Review Auto-Generat ed Referral 2 01/26/2023 1 1 [facility] for referral (narrative)* Diagnostic Procedure Only (Routine) - Pending Review Specialty Diagnoses / Procedures Referred By Manuel t Referred To Contact [facility] Diagnoses Encounter for screening mammogram for breast cancer Procedures ESTHER SCREENING SCREENING MAMMOGRAPHY BI 2-VIEW [place] [address] [place] [address] [facility] [address] [place] [phone] Referral ID Status Reason Start Date Expiration Date Visits Requested Visits Authorized [id number] Pending Review Auto-Generat ed Referral 03/03/2022 04/02/2023 1 1 [facility] for referral (narrative)* Outpatient Procedure (Routine) - Pending Review Specialty Diagnoses / Procedures Referred By Contac t Referred To Contact [facility] Diagnoses Paroxysmal atrial fibrillation (HCC) Hypertension, unspecified type Atherosclerotic peripheral vascular disease with intermittent claudication (HCC) Procedures ECG COMPLETE ECG ROUTINE ECG W/LEAST 12 LDS W/[place] [address] [place] [address] [address] Referral ID Status Reason Start Date Expiration Date Visits Requested Visits Authorized [id number] Pending Review Auto-Generat ed Referral 07/28/2022 07/28/2023 1 1 [facility] for referral (narrative)* Outpatient Procedure (Routine) - Authorized Specialty Diagnoses / Procedures Referred By Contac t Referred To Contact [facility] Diagnoses PVD (peripheral vascular disease) ([facility]) Aortoiliac occlusive disease (HCC) Carotid artery stenosis, asymptomatic, bilateral Procedures US ABD AORTA COMPLETE VAS LAB DUP-SCAN AORTA IVC ILIAC VASCL/BPGS COMPLETE Chuck Tucker MD [address] [place] [address] [address] Referral ID Status Reason Start Date Expiration Date Visits Requested Visits Authorized [id number] Authorized Auto-Generat ed Referral 11/15/2022 11/15/2023 1 1 * Outpatient Procedure (Routine) - Authorized Specialty Diagnoses / Procedures Referred By Contac t Referred To Contact [facility] Diagnoses PVD (peripheral vascular disease) (HCC) Aortoiliac occlusive disease (HCC) Carotid artery stenosis, asymptomatic, bilateral Procedures PVR ANK PRESS LINSEY VAS LAB NON-INVAS PHYSIOLOGIC STD EXTREMITY ART 2 LEVEL Chuck Tucker MD [address] [address] Referral ID Status Reason Start Date Expiration Date Visits Requested Visits Authorized [id number] Authorized Auto-Generat ed Referral 11/15/2022 11/15/2023 1 1 * Outpatient Procedure (Routine) - Authorized Specialty Diagnoses / Procedures Referred By Contac t Referred To Contact [facility] Diagnoses PVD (peripheral vascular disease) (HCC) Aortoiliac occlusive disease (HCC) Carotid artery stenosis, asymptomatic, bilateral Procedures US CAROTID ARTERIES [facility] LAB DUPLEX SCAN EXTRACRANIAL ART COMPL BI STUDY Chuck Tucker MD [address] [address] Referral ID Status Reason Start Date Expiration Date Visits Requested Visits Authorized [id number] Authorized Auto-Generat ed Referral 11/15/2022 11/15/2023 1 1 [facility] for referral (narrative)* Outpatient Procedure (Routine) - Pending Review Specialty Diagnoses / Procedures Referred By Contac t Referred To Contact [facility] Diagnoses Paroxysmal atrial fibrillation (HCC) Procedures ECG COMPLETE ECG ROUTINE ECG W/LEAST 12 LDS W/I&[place] [address] [place] [address] [facility] [address] [address] Referral ID Status Reason Start Date Expiration Date Visits Requested Visits Authorized [id number] Pending Review Auto-Generat ed Referral 01/28/2023 01/28/2024 1 1 [facility] for referral (narrative)* Diagnostic Procedure Only (Routine) - Pending Review Specialty Diagnoses / Procedures Referred By Imanac t Referred To Contact [facility] Diagnoses Encounter for screening mammogram for breast cancer Procedures ESTHER SCREENING SCREENING MAMMOGRAPHY BI 2-VIEW [place] [address] [place] [address] [facility] [address] [place] [address] Referral ID Status Reason Start Date Expiration Date Visits Requested Visits Authorized [id number] Pending Review Auto-Generat ed Referral 02/02/2023 03/03/2024 1 1 [facility] for referral (narrative)No Reason for Referral [facility] Outpatient Procedure (Routine) - Pending Review Specialty Diagnoses / Procedures Referred By Manuel preston Referred To Contact [facility] Diagnoses Atrial fibrillation, persistent (HCC) Procedures ECHO TRANSESOPHAGEAL ECHO TRANSESOPHAG R-T 2D W/PRB IMG ACQUMERLENE I&R Rogelio Stokes MD [address] [place] [address] [facility] [place] [address] [place] [id number] Referral ID Status Reason Start Date Expiration Date Visits Requested Visits Authorized [id number] Pending Review Auto-Generat ed Referral 07/04/2023 07/03/2024 1 1 [facility] for referral (narrative)* Diagnostic Procedure Only (Routine) - New Request Specialty Diagnoses / Procedures Referred By Manuel preston Referred To Contact [facility] Diagnoses Abdominal wall bulge Procedures US HIP RIGHT US COMPL JOINT R-T W/[place] [address] [place] [address] Us [facility] [address] Referral ID Status Reason Start Date Expiration Date Visits Requested Visits Authorized [id number] New Request Auto-Generat ed Referral 11/10/2023 12/09/2024 1 1 [facility] for referral (narrative)* Diagnostic Procedure Only (Routine) - New Request Specialty Diagnoses / Procedures Referred By Contac t Referred To Contact [facility] Diagnoses Encounter for screening mammogram for breast cancer Procedures ESTHER SCREENING W JEFF SCREENING DIGITAL BREAST TOMOSYNTHESIS BI SCREENING MAMMOGRAPHY BI 2-VIEW [place] [address] [place] [address] [facility] [address] [place] [phone] Referral ID Status Reason Start Date Expiration Date Visits Requested Visits Authorized [id number] New Request Auto-Generat ed Referral 01/04/2024 02/02/2025 1 1 [facility] for referral (narrative)* Outpatient Procedure (Routine) - New Request Specialty Diagnoses / Procedures Referred By Contac t Referred To Contact [facility] Diagnoses PVD (peripheral vascular disease) (HCC) Procedures PVR ANK PRESS LINSEY VAS LAB NON-INVAS PHYSIOLOGIC STD EXTREMITY [place] [address] [place] [address] [facility] [place] [address] [place] [address] Referral ID Status Reason Start Date Expiration Date Visits Requested Visits Authorized [id number] New Request Auto-Generat ed Referral 02/15/2025 1 1 * Outpatient Procedure (Routine) - New Request Specialty Diagnoses / Procedures Referred By Contac t Referred To Contact [facility] Diagnoses PVD (peripheral vascular disease) (HCC) Procedures US ABD AORTA COMPLETE VAS LAB DUP-SCAN AORTA IVC ILIAC VASCL/[place] [address] [place] [address] [address] Referral ID Status Reason Start Date Expiration Date Visits Requested Visits Authorized [id number] New Request Auto-Generat ed Referral 02/15/2025 1 1 [facility] for referral (narrative)* Outpatient Procedure (Routine) - Authorized Specialty Diagnoses / Procedures Referred By Contac t Referred To Contact [facility] Diagnoses EKG abnormalities Procedures ECG COMPLETE ECG ROUTINE ECG W/LEAST 12 LDS W/I&R Rogelio Stokes MD [address] [place] [address] [place] [id number] Referral ID Status Reason Start Date Expiration Date Visits Requested Visits Authorized [id number] Authorized Auto-Generat ed Referral 03/05/2024 02/27/2025 1 1 [facility] for visit Narrative* Diagnostic Procedure Only (Routine) - Closed Specialty Diagnoses / Procedures Referred By [facility] [facility] Diagnoses Abdominal wall bulge Procedures US ABDOMEN LTD US ABDOMINAL REAL TIME W/[place] [address] [place] [address] [facility] [place] [address] Referral ID Status Reason Start Date Expiration Date V isits Requested Visits Authorized [id number] Closed Auto-Generate d Referral 11/03/2023 02/28/2024 1 1 [facility] for visit Narrative* Diagnostic Procedure Only (Routine) - Authorized Specialty Diagnoses / Procedures Referred By Contac t Referred To Contact Cardiology / CARD [place] Diagnoses Paroxysmal atrial fibrillation DX 3 MONTH PVI+WATCHMAN FOLLOW UP Procedures ECHO TRANSESOPHAGEAL W/O CONTRAST (PRO/TECH CHARGES) TRANSESOPHAGEAL ECHO Rogelio Stokes MD [address] [place] [address] Card Function Lab [id number] [place] [id number] Referral ID Status Reason Start Date Expiration Date V isits Requested Visits Authorized [id number] Authorized 03/06/2024 02/27/2025 2 2 [facility] N[facility] - Reported Review of Systems not supported for this document type No Review of [facility] Summary Purpose Family [...] FoundDocuments on File Type Date Recorded Patient Cotton Inspector Expl anation Advance Directive(s) 03/28/2019 10:10 AM Advance Directive(s) 07/20/2018 10:43 AM Advance Directive(s) 07/19/2018 7:10 AM Advance Directive(s) 07/14/2018 11:46 AM Advance Directive(s) 06/09/2017 12:41 PM Documents on File Type Date Recorded Patient Cotton Inspector Expl anation Advance Directive(s) 03/28/2019 10:10 AM Advance Directive(s) 07/20/2018 10:43 AM Advance Directive(s) 07/19/2018 7:10 AM Advance Directive(s) 07/14/2018 11:46 AM Advance Directive(s) 06/09/2017 12:41 PM Documents on File Type Date Recorded Patient Cotton Inspector Expl anation Advance Directive(s) 07/20/2018 10:43 AM Documents on File Type Date Recorded Patient Cotton Inspector Expl anation Advance Directive(s) 07/20/2018 10:43 AM [...] laterality Procedures CONSULT TO HEADACHE CLINIC OFFICE/OUTPATIENT [facility] 60-[place] [address] [place] [address] Referral ID Status Reason Start Date Expiration Date Visits Requested Visits Authorized [id number] Pending Review PCP Requested Referral 10/12/2021 10/12/2022 1 1 Specialty Diagnoses / Procedures Referred By Contac t Referred To Contact Ent - Otolaryngology Diagnoses Tension-type headache, not intractable, unspecified chronicity pattern Tinnitus, unspecified laterality Procedures CONSULT TO ENT OFFICE/OUTPATIENT [facility] 60-74 MINUTES [place]la Monterroso [place] [id number] [place] [address] Referral ID Status Reason Start Date Expiration Date Visits Requested Visits Authorized [id number] Pending Review PCP Requested Referral 10/12/2021 10/12/2022 1 1 Specialty Diagnoses / Procedures Referred By Contac t Referred To Contact CT IMAGING Diagnoses Pulsatile tinnitus, left ear Lightheadedness Procedures CT TEMP BONES WO IVCON CT ORBIT SELLA/POST FOSSA/EAR W/O CONTRAST Macrina Cobian PA-C [address] [place] [address] Ct Imaging Referral ID Status Reason Start Date Expiration Date Visits Requested Visits Authorized [id number] Authorized Auto-Generat ed Referral 11/11/2021 12/11/2022 1 1 Specialty Diagnoses / Procedures Referred By Contac t Referred To [facility] Procedures CARDIOVASCULAR MEDICINE OP FOLLOW UP APPT ORDER Rogelio Stokes MD [address] [place] [address] [facility] [address] [place] [address] Referral ID Status Reason Start Date Expiration Date Visits Requested Visits Authorized [id number] Ref Not Required PCP Requested Referral 06/22/2023 06/21/2024 1 1 Specialty Diagnoses / Procedures Referred By Contac t Referred To Contact [facility] Diagnoses Gait instability Procedures CONSULT TO PHYSICAL THERAPY PHYSICAL THERAPY EVALUATION HIGH COMPLEX 45 MINS Kayla Monterroso [place] [id number] [place] [address] [facility] [address] [place] [address] Referral ID Status Reason Start Date Expiration Date Visits Requested Visits Authorized [id number] Pending Review Auto-Generat ed Referral 11/03/2023 11/02/2024 1 1 Specialty Diagnoses / Procedures Referred By Contac t Referred To Contact US IMAGING Diagnoses Abdominal wall bulge Procedures US PELVIS LTD US PELVIC NONOBSTETRIC IMAGE DCMTN LIMITED/F/U Kayla Monterroso MD [address] [place] [address] [place] [address] Referral ID Status Reason Start Date Expiration Date Visits Requested Visits Authorized [id number] Authorized Auto-Generat ed Referral 11/03/2023 02/28/2024 1 1 Specialty Diagnoses / Procedures Referred By Contac t Referred To Contact US IMAGING Diagnoses Abdominal wall bulge Procedures US ABDOMEN LTD US ABDOMINAL REAL TIME W/IMAGE LIMITED Kayla Monterroso MD [address] [place] [address] [place] [address] Referral ID Status Reason Start Date Expiration Date Visits Requested Visits Authorized [id number] Authorized Auto-Generat ed Referral 11/03/2023 02/28/2024 1 1 Specialty Diagnoses / Procedures Referred By Contac t Referred To Contact XR IMAGING Diagnoses Asymptomatic postmenopausal status Procedures DXA-AXIAL SKELETON WITH VFA DXA BONE DENSITY STUDY AXIAL SKELETON Kayla Monterroso MD [id number] [place] [address] [place] [address] Referral ID Status Reason Start Date Expiration Date Visits Requested Visits Authorized [id number] Pending Review Auto-Generat ed Referral 11/03/2023 12/02/2024 1 1 Specialty Diagnoses / Procedures Referred By Contac t Referred To Contact General Surgery Diagnoses Other specified abdominal hernia without obstruction or gangrene Procedures CONSULT TO GENERAL SURGERY OFFICE/OUTPATIENT NEW HIGH MDM 60 [place] [address] [place] [address] Referral ID Status Reason Start Date Expiration Date Visits Requested Visits Authorized [id number] Authorized PCP Requested Referral 11/24/2023 11/23/2024 1 1 Specialty Diagnoses / Procedures Referred By Contac t Referred To Contact [facility] Procedures CARDIOVASCULAR MEDICINE OP FOLLOW UP APPT ORDER Elmira Becker, HARDWARE ENGINEER.SERVICE CENTER SPECIALIST [address] [place] [address] [facility] [address] [place] [address] Referral ID Status Reason Start Date Expiration Date Visits Requested Visits Authorized [id number] Authorized PCP Requested Referral 03/06/2024 03/06/2025 1 1 Physical Exam Physical Exam not supported for this document type No Physical Exam Recorded Chief Complaint and Reason for Visit Chief Complaint z12.31 Additional Source Comments INFORMATION SOURCE (unrecogn ized section and content) DATE CREATED AUTHOR 08/24/2017 [facility] DATE CREATED AUTHOR AUTHOR'S ORGANIZ ATION 02/26/2022 [facility] DATE CREATED AUTHOR AUTHOR'S ORGANIZ ATION 05/17/2023 [facility] DATE CREATED AUTHOR AUTHOR'S ORGANIZ ATION 05/21/2023 [facility] DATE CREATED AUTHOR AUTHOR'S ORGANIZ ATION 09/15/2023 [facility] DATE CREATED AUTHOR AUTHOR'S ORGANIZ ATION 11/23/2023 [facility] DATE CREATED AUTHOR AUTHOR'S ORGANIZ ATION 02/11/2024 [facility] DATE CREATED AUTHOR AUTHOR'S ORGANIZ ATION 03/25/2024 [facility] Source Comments (unrecognize d section and content) In the event this informatio n is protected by the Federal Confidentiality of Alcohol and Drug Abuse Patient Records regulations: The Federal rules restrict any use of the information to criminally investigate or prosecute any alcohol or drug abuse patient.[facility] HospitalIn the event this information is protected by the Federal Confidentiality of Alcohol and Drug Abuse Patient Records regulations: The Federal rules restrict any use of the information to criminally investigate or prosecute any alcohol or drug abuse patient.[facility] HospitalIn the event this information is protected by the Federal Confidentiality of Alcohol and Drug Abuse Patient Records regulations: The Federal rules restrict any use of the information to criminally investigate or prosecute any alcohol or drug abuse patient.[facility] HospitalIn the event this information is protected by the Federal Confidentiality of Alcohol and Drug Abuse Patient Records regulations: The Federal rules restrict any use of the information to criminally investigate or prosecute any alcohol or drug abuse patient.[facility] HospitalIn the event this information is protected by the Federal Confidentiality of Alcohol and Drug Abuse Patient Records regulations: The Federal rules restrict any use of the information to criminally investigate or prosecute any alcohol or drug abuse patient.[facility] HospitalIn the event this information is protected by the Federal Confidentiality of Alcohol and Drug Abuse Patient Records regulations: The Federal rules restrict any use of the information to criminally investigate or prosecute any alcohol or drug abuse patient.[facility] HospitalIn the event this information is protected by the Federal Confidentiality of Alcohol and Drug Abuse Patient Records regulations: The Federal rules restrict any use of the information to criminally investigate or prosecute any alcohol or drug abuse patient.[facility] HospitalIn the event this information is protected by the Federal Confidentiality of Alcohol and Drug Abuse Patient Records regulations: The Federal rules restrict any use of the information to criminally investigate or prosecute any alcohol or drug abuse patient.[facility] HospitalIn the event this information is protected by the Federal Confidentiality of Alcohol and Drug Abuse Patient Records regulations: The Federal rules restrict any use of the information to criminally investigate or prosecute any alcohol or drug abuse patient.[facility] HospitalIn the event this information is protected by the Federal Confidentiality of Alcohol and Drug Abuse Patient Records regulations: The Federal rules restrict any use of the information to criminally investigate or prosecute any alcohol or drug abuse patient.[facility] HospitalIn the event this information is protected by the Federal Confidentiality of Alcohol and Drug Abuse Patient Records regulations: The Federal rules restrict any use of the information to criminally investigate or prosecute any alcohol or drug abuse patient.[facility] HospitalIn the event this information is protected by the Federal Confidentiality of Alcohol and Drug Abuse Patient Records regulations: The Federal rules restrict any use of the information to criminally investigate or prosecute any alcohol or drug abuse patient.[facility] HospitalIn the event this information is protected by the Federal Confidentiality of Alcohol and Drug Abuse Patient Records regulations: The Federal rules restrict any use of the information to criminally investigate or prosecute any alcohol or drug abuse patient.[facility] HospitalIn the event this information is protected by the Federal Confidentiality of Alcohol and Drug Abuse Patient Records regulations: The Federal rules restrict any use of the information to criminally investigate or prosecute any alcohol or drug abuse patient.[facility] HospitalIn the event this information is protected by the Federal Confidentiality of Alcohol and Drug Abuse Patient Records regulations: The Federal rules restrict any use of the information to criminally investigate or prosecute any alcohol or drug abuse patient.[facility] HospitalIn the event this information is protected by the Federal Confidentiality of Alcohol and Drug Abuse Patient Records regulations: The Federal rules restrict any use of the information to criminally investigate or prosecute any alcohol or drug abuse patient.[facility] HospitalIn the event this information is protected by the Federal Confidentiality of Alcohol and Drug Abuse Patient Records regulations: The Federal rules restrict any use of the information to criminally investigate or prosecute any alcohol or drug abuse patient.[facility] HospitalIn the event this information is protected by the Federal Confidentiality of Alcohol and Drug Abuse Patient Records regulations: The Federal rules restrict any use of the information to criminally investigate or prosecute any alcohol or drug abuse patient.[facility] HospitalIn the event this information is protected by the Federal Confidentiality of Alcohol and Drug Abuse Patient Records regulations: The Federal rules restrict any use of the information to criminally investigate or prosecute any alcohol or drug abuse patient.[facility] HospitalIn the event this information is protected by the Federal Confidentiality of Alcohol and Drug Abuse Patient Records regulations: The Federal rules restrict any use of the information to criminally investigate or prosecute any alcohol or drug abuse patient.[facility] HospitalIn the event this information is protected by the Federal Confidentiality of Alcohol and Drug Abuse Patient Records regulations: The Federal rules restrict any use of the information to criminally investigate or prosecute any alcohol or drug abuse patient.[facility] HospitalIn the event this information is protected by the Federal Confidentiality of Alcohol and Drug Abuse Patient Records regulations: The Federal rules restrict any use of the information to criminally investigate or prosecute any alcohol or drug abuse patient.[facility] HospitalIn the event this information is protected by the Federal Confidentiality of Alcohol and Drug Abuse Patient Records regulations: The Federal rules restrict any use of the information to criminally investigate or prosecute any alcohol or drug abuse patient.[facility] HospitalIn the event this information is protected by the Federal Confidentiality of Alcohol and Drug Abuse Patient Records regulations: The Federal rules restrict any use of the information to criminally investigate or prosecute any alcohol or drug abuse patient.[facility] HospitalIn the event this information is protected by the Federal Confidentiality of Alcohol and Drug Abuse Patient Records regulations: The Federal rules restrict any use of the information to criminally investigate or prosecute any alcohol or drug abuse patient.[facility] HospitalIn the event this information is protected by the Federal Confidentiality of Alcohol and Drug Abuse Patient Records regulations: The Federal rules restrict any use of the information to criminally investigate or prosecute any alcohol or drug abuse patient.[facility] HospitalIn the event this information is protected by the Federal Confidentiality of Alcohol and Drug Abuse Patient Records regulations: The Federal rules restrict any use of the information to criminally investigate or prosecute any alcohol or drug abuse patient.[facility] HospitalIn the event this information is protected by the Federal Confidentiality of Alcohol and Drug Abuse Patient Records regulations: The Federal rules restrict any use of the information to criminally investigate or prosecute any alcohol or drug abuse patient.[facility] HospitalIn the event this information is protected by the Federal Confidentiality of Alcohol and Drug Abuse Patient Records regulations: The Federal rules restrict any use of the information to criminally investigate or prosecute any alcohol or drug abuse patient.[facility] HospitalIn the event this information is protected by the Federal Confidentiality of Alcohol and Drug Abuse Patient Records regulations: The Federal rules restrict any use of the information to criminally investigate or prosecute any alcohol or drug abuse patient.[facility] HospitalIn the event this information is protected by the Federal Confidentiality of Alcohol and Drug Abuse Patient Records regulations: The Federal rules restrict any use of the information to criminally investigate or prosecute any alcohol or drug abuse patient.[facility] HospitalIn the event this information is protected by the Federal Confidentiality of Alcohol and Drug Abuse Patient Records regulations: The Federal rules restrict any use of the information to criminally investigate or prosecute any alcohol or drug abuse patient.[facility] HospitalIn the event this information is protected by the Federal Confidentiality of Alcohol and Drug Abuse Patient Records regulations: The Federal rules restrict any use of the information to criminally investigate or prosecute any alcohol or drug abuse patient.[facility] HospitalIn the event this information is protected by the Federal Confidentiality of Alcohol and Drug Abuse Patient Records regulations: The Federal rules restrict any use of the information to criminally investigate or prosecute any alcohol or drug abuse patient.[facility] HospitalIn the event this information is protected by the Federal Confidentiality of Alcohol and Drug Abuse Patient Records regulations: The Federal rules restrict any use of the information to criminally investigate or prosecute any alcohol or drug abuse patient.[facility] HospitalIn the event this information is protected by the Federal Confidentiality of Alcohol and Drug Abuse Patient Records regulations: The Federal rules restrict any use of the information to criminally investigate or prosecute any alcohol or drug abuse patient.[facility] HospitalIn the event this information is protected by the Federal Confidentiality of Alcohol and Drug Abuse Patient Records regulations: The Federal rules restrict any use of the information to criminally investigate or prosecute any alcohol or drug abuse patient.[facility] HospitalIn the event this information is protected by the Federal Confidentiality of Alcohol and Drug Abuse Patient Records regulations: The Federal rules restrict any use of the information to criminally investigate or prosecute any alcohol or drug abuse patient.[facility] HospitalIn the event this information is protected by the Federal Confidentiality of Alcohol and Drug Abuse Patient Records regulations: The Federal rules restrict any use of the information to criminally investigate or prosecute any alcohol or drug abuse patient.[facility] HospitalIn the event this information is protected by the Federal Confidentiality of Alcohol and Drug Abuse Patient Records regulations: The Federal rules restrict any use of the information to criminally investigate or prosecute any alcohol or drug abuse patient.[facility] HospitalIn the event this information is protected by the Federal Confidentiality of Alcohol and Drug Abuse Patient Records regulations: The Federal rules restrict any use of the information to criminally investigate or prosecute any alcohol or drug abuse patient.[facility] HospitalIn the event this information is protected by the Federal Confidentiality of Alcohol and Drug Abuse Patient Records regulations: The Federal rules restrict any use of the information to criminally investigate or prosecute any alcohol or drug abuse patient.[facility] HospitalIn the event this information is protected by the Federal Confidentiality of Alcohol and Drug Abuse Patient Records regulations: The Federal rules restrict any use of the information to criminally investigate or prosecute any alcohol or drug abuse patient.[facility] HospitalIn the event this information is protected by the Federal Confidentiality of Alcohol and Drug Abuse Patient Records regulations: The Federal rules restrict any use of the information to criminally investigate or prosecute any alcohol or drug abuse patient.[facility] HospitalIn the event this information is protected by the Federal Confidentiality of Alcohol and Drug Abuse Patient Records regulations: The Federal rules restrict any use of the information to criminally investigate or prosecute any alcohol or drug abuse patient.[facility] HospitalIn the event this information is protected by the Federal Confidentiality of Alcohol and Drug Abuse Patient Records regulations: The Federal rules restrict any use of the information to criminally investigate or prosecute any alcohol or drug abuse patient.[facility] HospitalIn the event this information is protected by the Federal Confidentiality of Alcohol and Drug Abuse Patient Records regulations: The Federal rules restrict any use of the information to criminally investigate or prosecute any alcohol or drug abuse patient.[facility] HospitalIn the event this information is protected by the Federal Confidentiality of Alcohol and Drug Abuse Patient Records regulations: The Federal rules restrict any use of the information to criminally investigate or prosecute any alcohol or drug abuse patient.[facility] HospitalIn the event this information is protected by the Federal Confidentiality of Alcohol and Drug Abuse Patient Records regulations: The Federal rules restrict any use of the information to criminally investigate or prosecute any alcohol or drug abuse patient.[facility] HospitalIn the event this information is protected by the Federal Confidentiality of Alcohol and Drug Abuse Patient Records regulations: The Federal rules restrict any use of the information to criminally investigate or prosecute any alcohol or drug abuse patient.[facility] HospitalIn the event this information is protected by the Federal Confidentiality of Alcohol and Drug Abuse Patient Records regulations: The Federal rules restrict any use of the information to criminally investigate or prosecute any alcohol or drug abuse patient.[facility] HospitalIn the event this information is protected by the Federal Confidentiality of Alcohol and Drug Abuse Patient Records regulations: The Federal rules restrict any use of the information to criminally investigate or prosecute any alcohol or drug abuse patient.[facility] HospitalIn the event this information is protected by the Federal Confidentiality of Alcohol and Drug Abuse Patient Records regulations: The Federal rules restrict any use of the information to criminally investigate or prosecute any alcohol or drug abuse patient.[facility] HospitalIn the event this information is protected by the Federal Confidentiality of Alcohol and Drug Abuse Patient Records regulations: The Federal rules restrict any use of the information to criminally investigate or prosecute any alcohol or drug abuse patient.[facility] HospitalIn the event this information is protected by the Federal Confidentiality of Alcohol and Drug Abuse Patient Records regulations: The Federal rules restrict any use of the information to criminally investigate or prosecute any alcohol or drug abuse patient.[facility] HospitalIn the event this information is protected by the Federal Confidentiality of Alcohol and Drug Abuse Patient Records regulations: The Federal rules restrict any use of the information to criminally investigate or prosecute any alcohol or drug abuse patient.[facility] HospitalIn the event this information is protected by the Federal Confidentiality of Alcohol and Drug Abuse Patient Records regulations: The Federal rules restrict any use of the information to criminally investigate or prosecute any alcohol or drug abuse patient.[facility] HospitalIn the event this information is protected by the Federal Confidentiality of Alcohol and Drug Abuse Patient Records regulations: The Federal rules restrict any use of the information to criminally investigate or prosecute any alcohol or drug abuse patient.[facility] HospitalIn the event this information is protected by the Federal Confidentiality of Alcohol and Drug Abuse Patient Records regulations: The Federal rules restrict any use of the information to criminally investigate or prosecute any alcohol or drug abuse patient.[facility] HospitalIn the event this information is protected by the Federal Confidentiality of Alcohol and Drug Abuse Patient Records regulations: The Federal rules restrict any use of the information to criminally investigate or prosecute any alcohol or drug abuse patient.[facility] HospitalIn the event this information is protected by the Federal Confidentiality of Alcohol and Drug Abuse Patient Records regulations: The Federal rules restrict any use of the information to criminally investigate or prosecute any alcohol or drug abuse patient.[facility] HospitalIn the event this information is protected by the Federal Confidentiality of Alcohol and Drug Abuse Patient Records regulations: The Federal rules restrict any use of the information to criminally investigate or prosecute any alcohol or drug abuse patient.[facility] HospitalIn the event this information is protected by the Federal Confidentiality of Alcohol and Drug Abuse Patient Records regulations: The Federal rules restrict any use of the information to criminally investigate or prosecute any alcohol or drug abuse patient.[facility] HospitalIn the event this information is protected by the Federal Confidentiality of Alcohol and Drug Abuse Patient Records regulations: The Federal rules restrict any use of the information to criminally investigate or prosecute any alcohol or drug abuse patient.[facility] HospitalIn the event this information is protected by the Federal Confidentiality of Alcohol and Drug Abuse Patient Records regulations: The Federal rules restrict any use of the information to criminally investigate or prosecute any alcohol or drug abuse patient.[facility] HospitalIn the event this information is protected by the Federal Confidentiality of Alcohol and Drug Abuse Patient Records regulations: The Federal rules restrict any use of the information to criminally investigate or prosecute any alcohol or drug abuse patient.[facility] HospitalIn the event this information is protected by the Federal Confidentiality of Alcohol and Drug Abuse Patient Records regulations: The Federal rules restrict any use of the information to criminally investigate or prosecute any alcohol or drug abuse patient.[facility] HospitalIn the event this information is protected by the Federal Confidentiality of Alcohol and Drug Abuse Patient Records regulations: The Federal rules restrict any use of the information to criminally investigate or prosecute any alcohol or drug abuse patient.[facility] HospitalIn the event this information is protected by the Federal Confidentiality of Alcohol and Drug Abuse Patient Records regulations: The Federal rules restrict any use of the information to criminally investigate or prosecute any alcohol or drug abuse patient.[facility] HospitalIn the event this information is protected by the Federal Confidentiality of Alcohol and Drug Abuse Patient Records regulations: The Federal rules restrict any use of the information to criminally investigate or prosecute any alcohol or drug abuse patient.[facility] HospitalIn the event this information is protected by the Federal Confidentiality of Alcohol and Drug Abuse Patient Records regulations: The Federal rules restrict any use of the information to criminally investigate or prosecute any alcohol or drug abuse patient.[facility] HospitalIn the event this information is protected by the Federal Confidentiality of Alcohol and Drug Abuse Patient Records regulations: The Federal rules restrict any use of the information to criminally investigate or prosecute any alcohol or drug abuse patient.[facility] HospitalIn the event this information is protected by the Federal Confidentiality of Alcohol and Drug Abuse Patient Records regulations: The Federal rules restrict any use of the information to criminally investigate or prosecute any alcohol or drug abuse patient.[facility] HospitalIn the event this information is protected by the Federal Confidentiality of Alcohol and Drug Abuse Patient Records regulations: The Federal rules restrict any use of the information to criminally investigate or prosecute any alcohol or drug abuse patient.[facility] HospitalIn the event this information is protected by the Federal Confidentiality of Alcohol and Drug Abuse Patient Records regulations: The Federal rules restrict any use of the information to criminally investigate or prosecute any alcohol or drug abuse patient.[facility] HospitalIn the event this information is protected by the Federal Confidentiality of Alcohol and Drug Abuse Patient Records regulations: The Federal rules restrict any use of the information to criminally investigate or prosecute any alcohol or drug abuse patient.[facility] HospitalIn the event this information is protected by the Federal Confidentiality of Alcohol and Drug Abuse Patient Records regulations: The Federal rules restrict any use of the information to criminally investigate or prosecute any alcohol or drug abuse patient.[facility] HospitalIn the event this information is protected by the Federal Confidentiality of Alcohol and Drug Abuse Patient Records regulations: The Federal rules restrict any use of the information to criminally investigate or prosecute any alcohol or drug abuse patient.[facility] HospitalIn the event this information is protected by the Federal Confidentiality of Alcohol and Drug Abuse Patient Records regulations: The Federal rules restrict any use of the information to criminally investigate or prosecute any alcohol or drug abuse patient.[facility] HospitalIn the event this information is protected by the Federal Confidentiality of Alcohol and Drug Abuse Patient Records regulations: The Federal rules restrict any use of the information to criminally investigate or prosecute any alcohol or drug abuse patient.[facility] HospitalIn the event this information is protected by the Federal Confidentiality of Alcohol and Drug Abuse Patient Records regulations: The Federal rules restrict any use of the information to criminally investigate or prosecute any alcohol or drug abuse patient.[facility] HospitalIn the event this information is protected by the Federal Confidentiality of Alcohol and Drug Abuse Patient Records regulations: The Federal rules restrict any use of the information to criminally investigate or prosecute any alcohol or drug abuse patient.[facility] HospitalIn the event this information is protected by the Federal Confidentiality of Alcohol and Drug Abuse Patient Records regulations: The Federal rules restrict any use of the information to criminally investigate or prosecute any alcohol or drug abuse patient.[facility] HospitalIn the event this information is protected by the Federal Confidentiality of Alcohol and Drug Abuse Patient Records regulations: The Federal rules restrict any use of the information to criminally investigate or prosecute any alcohol or drug abuse patient.[facility] HospitalIn the event this information is protected by the Federal Confidentiality of Alcohol and Drug Abuse Patient Records regulations: The Federal rules restrict any use of the information to criminally investigate or prosecute any alcohol or drug abuse patient.[facility] Reason for Visit (unrecogniz ed section [...] HIGH MDM 60-[place] [address] [place] [address] Referral ID Status Reason Start Date Expiration Date Visits Requested Visits Authorized [id number] Pending Review PCP Requested Referral 10/12/2021 10/12/2022 1 1 Reason Comments Follow Up Virtual Reason Comments Follow Up Reason Onset Date Comments Population Health Navigation Outreach 12/17/2021 Spouse of [facility] outreach pt Reason Comments F/U 6 Month Reason Onset Date Comments Refill Request 05/26/2022 Reason Comments Follow Up Reason Comments CPE (Medicare) Reason Comments Established Patient Follow Up Reason Onset Date Comments Population Health Navigation Outreach 03/31/2023 [facility] Outreach Reason Comments Chest Pain Sharp stabbing right sided chest pains starting 0300. Took 2 325mg asa when pain started. 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 Given 3 baby asa in office at 1122 and was given one nitro at 1129 with some improvement. Denies any n/v, slightly sob. Specialty Diagnoses / Procedures Referred By Manuel preston Referred To Contact Diagnoses Right sided abdominal pain Luis Estrella MD [address] [place] [address], [place] [address] [facility] [address] [place] [address] Referral ID Status Reason Start Date Expiration Date Visits Re quested Visits Authorized [id number] 1 1 Reason Comments ER/Urgent Referral Reason Comments Orders HH Reason Comments Patient Update Reason Comments Please call Patient's significant other as soon as possible Reason Comments Procedure EP: PVI + Watchman Reason Comments Medication Question Reason Comments Home Care Reason Onset Date Comments Refill Request 07/19/2023 Reason Comments Hospital F/U Reason Onset Date Comments Refill Request 08/01/2023 Reason Comments Recheck Monica Herring is a 73 year old [...] Watchman Reason Comments Follow Up Phone Call follow up call f irst attempt. Reason Comments Cardiac Clearance Reason Comments New hernia Specialty Diagnoses / Procedures Referred By Contarian t Referred To Contact General Surgery Diagnoses Other specified abdominal hernia without obstruction or gangrene Procedures CONSULT TO GENERAL SURGERY OFFICE/OUTPATIENT [facility] [address] [place] [address] [place] [address] Referral ID Status Reason Start Date Expiration Date V isits Requested Visits Authorized [id number] Closed PCP Requested Referral 11/24/2023 11/23/2024 1 1 Reason Comments Education Of Patient/family Reason Comments Medication Problem Reason Comments Preparations For Surgery PACC - Eliquis instructions Reason Comments Upcoming Surgery 02/08/24, UTI Reason Comments Pre-Op Visit Reason Comments Follow Up Reason Comments Preparations For Surgery PACC Reason Onset Date Comments Reminder Call 03/05/2024 [facility] Care Teams (unrecognized sec tion and content) Chilling Hood Operator Relationship Specialty [place] [address] [place] [address] PCP - General Internal Medicine 01/30/19 Janey Patricia DO [address] [place] [address] Primary Staff Physician Nephrology 03/26/21 Chilling Hood Operator Relationship Specialty Start Date End Date Kayla Monterroso [place] [id number] [place] [address] PCP - General Internal Medicine 01/30/19 Janey Patricia DO [address] [place] [address] Primary Staff Physician Nephrology 03/26/21 Chilling Hood Operator Relationship Specialty Start Date End Date Kayla Monterroso MD [address] [place] [address] PCP - General Internal Medicine 01/30/19 Janey Patricia DO [address] [place] [address] Primary Staff Physician Nephrology 03/26/21 Chilling Hood Operator Relationship Specialty Start Date End Date Kayla Monterroso MD [id number] [place] [address] PCP - General Internal Medicine 01/30/19 Janye Patricia DO [address] [place] [address] Primary Staff Physician Nephrology 03/26/21 Chilling Hood Operator Relationship Specialty Start Date End Date Kayla Monterroso MD [address] [place] [address] PCP - General Internal Medicine 01/30/19 Janey Patricia DO [address] [place] [address] Primary Staff Physician Nephrology 03/26/21 Chilling Hood Operator Relationship Specialty Start Date End Date Kayal Monterroso MD [address] [place] [address] PCP - General Internal Medicine 01/30/19 Janey Patricia DO [address] [place] [address] Primary Staff Physician Nephrology 03/26/21 Chilling Hood Operator Relationship Specialty Start Date End Date Kayla Monterroso MD [address] [place] [address] PCP - General Internal Medicine 01/30/19 Janey Patricia DO [address] [place] [address] Primary Staff Physician Nephrology 03/26/21 Chilling Hood Operator Relationship Specialty Start Date End Date Kayla Monterroso MD [address] [place] [address] PCP - General Internal Medicine 01/30/19 Janey Patricia DO [address] [place] [address] Primary Staff Physician Nephrology 03/26/21 Chilling Hood Operator Relationship Specialty Start Date End Date Kayla Monterroso MD [address] [place] [address] PCP - General Internal Medicine 01/30/19 Janey Patricia DO [address] [place] [address] Primary Staff Physician Nephrology 03/26/21 Chilling Hood Operator Relationship Specialty Start Date End Date Kayla Monterroso [place] [id number] [place] [address] PCP - General Internal Medicine 01/30/19 Janey Patricia DO [address] [place] [address] Primary Staff Physician Nephrology 03/26/21 Chilling Hood Operator Relationship Specialty Start Date End Date Kayla Monterroso MD [address] [place] [address] PCP - General Internal Medicine 01/30/19 Janey Ptaricia DO [address] [place] [address] Primary Staff Physician Nephrology 03/26/21 Chilling Hood Operator Relationship Specialty Start Date End Date Kayla Monterroso MD [address] [place] [address] PCP - General Internal Medicine 01/30/19 Janey Patricia, DO [address] [place] [address] Primary Staff Physician Nephrology 03/26/21 Chilling Hood Operator Relationship Specialty Start Date End Date Kayla Monterroso MD [address] [place] [address] PCP - General Internal Medicine 01/30/19 Janey Patricia, DO [address] [place] [address] Primary Staff Physician Nephrology 03/26/21 Chilling Hood Operator Relationship Specialty [place] [address] [place] [address] PCP - General Internal Medicine 01/30/19 Janey Patricia DO [address] [place] [address] Primary Staff Physician Nephrology 03/26/21 Chilling Hood Operator Relationship Specialty [place] [address] [place] [address] PCP - General Internal Medicine 01/30/19 Janey Patricia DO [address] [place] [address] Primary Staff Physician Nephrology 03/26/21 Chilling Hood Operator Relationship Specialty [place] [address] [place] [address] PCP - General Internal Medicine 01/30/19 Janey Patricia DO [address] [place] [address] Primary Staff Physician Nephrology 03/26/21 Chilling Hood Operator Relationship Specialty [place] [address] [place] [address] PCP - General Internal Medicine 01/30/19 Janey Patricia DO [address] [place] [address] Primary Staff Physician Nephrology 03/26/21 Chilling Hood Operator Relationship Specialty Start [place] [address] [place] [address] PCP - General Internal Medicine 01/30/19 Janey Patricia DO [address] [place] [address] Primary Staff Physician Nephrology 03/26/21 Chilling Hood Operator Relationship Specialty Start [place] [address] [place] [address] PCP - General Internal Medicine 01/30/19 Janey Patricia DO [address] [place] [address] Primary Staff Physician Nephrology 03/26/21 Chilling Hood Operator Relationship Specialty Start [place] [address] [place] [address] PCP - General Internal Medicine 01/30/19 Janey Patricia DO [address] [place] [address] Primary Staff Physician Nephrology 03/26/21 Chilling Hood Operator Relationship Specialty Start [place] [address] [place] [address] PCP - General Internal Medicine 01/30/19 Janey Patricia DO [address] [place] [address] Primary Staff Physician Nephrology 03/26/21 Chilling Hood Operator Relationship Specialty Start [place] [address] [place] [address] PCP - General Internal Medicine 05/18/23 Chilling Hood Operator Relationship Specialty Start [place] [address] [place] [address] PCP - General Internal Medicine 01/30/19 Janey Patricia DO [address] [place] [address] Primary Staff Physician Nephrology 03/26/21 Chilling Hood Operator Relationship Specialty Start [place] [address] [place] [address] PCP - General Internal Medicine 01/30/19 Janey Patricia DO [address] [place] [address] Primary Staff Physician Nephrology 03/26/21 Chilling Hood Operator Relationship Specialty [place] [address] [place] [address] PCP - General Internal Medicine 01/30/19 Janey Patricia DO [address] [place] [address] Primary Staff Physician Nephrology 03/26/21 Chilling Hood Operator Relationship Specialty [place] [address] [place] [address] PCP - General Internal Medicine 01/30/19 Janey Patricia DO [address] [place] [address] Primary Staff Physician Nephrology 03/26/21 Chilling Hood Operator Relationship Specialty [place] [address] [place] [address] PCP - General Internal Medicine 01/30/19 Janey Patricia DO [address] [place] [address] Primary Staff Physician Nephrology 03/26/21 Chilling Hood Operator Relationship Specialty Start [place] [address] [place] [address] PCP - General Internal Medicine 01/30/19 Janey Patricia DO [address] [place] [address] Primary Staff Physician Nephrology 03/26/21 Chilling Hood Operator Relationship Specialty Start [place] [address] [place] [address] PCP - General Internal Medicine 01/30/19 Janey Patricia DO [address] [place] [address] Primary Staff Physician Nephrology 03/26/21 Chilling Hood Operator Relationship Specialty Start [place] [address] [place] [address] PCP - General Internal Medicine 01/30/19 Janey Patricia DO [address] [place] [address] Primary Staff Physician Nephrology 03/26/21 Chilling Hood Operator Relationship Specialty Start [place] [address] [place] [address] PCP - General Internal Medicine 01/30/19 Janey Patricia DO [address] [place] [address] Primary Staff Physician Nephrology 03/26/21 Chilling Hood Operator Relationship Specialty Start [place] [address] [place] [address] PCP - General Internal Medicine 01/30/19 Janey Patricia DO [address] [place] [address] Primary Staff Physician Nephrology 03/26/21 Chilling Hood Operator Relationship Specialty Start [place] [address] [place] [address] PCP - General Internal Medicine 01/30/19 Janey Patricia DO [address] [place] [address] Primary Staff Physician Nephrology 03/26/21 Chilling Hood Operator Relationship Specialty [place] [address] [place] [address] PCP - General Internal Medicine 01/30/19 Janey Patricia DO [address] [place] [address] Primary Staff Physician Nephrology 03/26/21 Chilling Hood Operator Relationship Specialty [place] [address] [place] [address] PCP - General Internal Medicine 01/30/19 Janey Patricia DO [address] [place], [place] [address] Primary Staff Physician Nephrology 03/26/21 Chilling Hood Operator Relationship Specialty [place] [address] [place] [address] PCP - General Internal Medicine 01/30/19 Janey Patricia DO [address] [place], [place] [address] Primary Staff Physician Nephrology 03/26/21 Team Status: Active Member Role Status Dates Kayla Monterroso MD Primary Care Provider Active Team Status: Inactive Member Role Status Dates Kayla Monterroso MD Primary Care Provide r, Attending Provider Active Start: September 09, 2023 End: September 09, 2023 Chilling Hood Operator Relationship Specialty [place] [address] [place] [address] PCP - General Internal Medicine 01/30/19 Janey Patricia DO [address] [place] [address] Primary Staff Physician Nephrology 03/26/21 Chilling Hood Operator Relationship Specialty [place] [address] [place] [address] PCP - General Internal Medicine 01/30/19 Janey Patricia DO [address] [place] [address] Primary Staff Physician Nephrology 03/26/21 Chilling Hood Operator Relationship Specialty [place] [address] [place] [address] PCP - General Internal Medicine 01/30/19 Janey Patricia DO [address] [place] [address] Primary Staff Physician Nephrology 03/26/21 Chilling Hood Operator Relationship Specialty Start [place] [address] [place] [address] PCP - General Internal Medicine 01/30/19 Janey Patricia DO [address] [place] [address] Primary Staff Physician Nephrology 03/26/21 Chilling Hood Operator Relationship Specialty Start [place] [address] [place] [address] PCP - General Internal Medicine 01/30/19 Janey Patricia DO [address] [place] [address] Primary Staff Physician Nephrology 03/26/21 Chilling Hood Operator Relationship Specialty Start [place] [address] [place] [address] PCP - General Internal Medicine 01/30/19 Janey Patricia DO [address] [place] [address] Primary Staff Physician Nephrology 03/26/21 Chilling Hood Operator Relationship Specialty Start [place] [address] [place] [address] PCP - General Internal Medicine 01/30/19 Janey Patricia DO [address] [place] [address] Primary Staff Physician Nephrology 03/26/21 Chilling Hood Operator Relationship Specialty Start [place] [address] [place] [address] PCP - General Internal Medicine 01/30/19 Janey Patricia DO [address] [place] [address] Primary Staff Physician Nephrology 03/26/21 Chilling Hood Operator Relationship Specialty Start [place] [address] [place] [address] PCP - General Internal Medicine 01/30/19 Janey Patricia DO [address] [place] [address] Primary Staff Physician Nephrology 03/26/21 Chilling Hood Operator Relationship Specialty Start [place] [address] [place] [address] PCP - General Internal Medicine 01/30/19 Janey Patricia DO [address] [place] [address] Primary Staff Physician Nephrology 03/26/21 Chilling Hood Operator Relationship Specialty Start [place] [address] [place] [address] PCP - General Internal Medicine 01/30/19 Janey Patricia DO [address] [place] [address] Primary Staff Physician Nephrology 03/26/21 Chilling Hood Operator Relationship Specialty Start [place] [address] [place] [address] PCP - General Internal Medicine 01/30/19 Janey Patricia DO [address] [place] [address] Primary Staff Physician Nephrology 03/26/21 Chilling Hood Operator Relationship Specialty Start [place] [address] [place] [address] PCP - General Internal Medicine 01/30/19 Chilling Hood Operator Relationship Specialty Start [place] [address] [place] [address] PCP - General Internal Medicine 01/30/19 Janey Patricia DO [address] [place] [address] Primary Staff Physician Nephrology 03/26/21 Chilling Hood Operator Relationship Specialty Start [place] [address] [place] [address] PCP - General Internal Medicine 01/30/19 Janey Patricia DO [address] [place] [address] Primary Staff Physician Nephrology 03/26/21 Chugn Dutton, HARDWARE ENGINEER.SERVICE CENTER SPECIALIST [address] [place] [address] Lien Searcher Internal Medicine 02/06/24 Lily Velez, HARDWARE ENGINEER.SERVICE CENTER SPECIALIST [address] [place] [address] Lien Searcher Internal Medicine 02/06/24 Stepan Roberts, HARDWARE ENGINEER.SERVICE CENTER SPECIALIST [address] [place] [address] Lien Searcher Internal Medicine 02/06/24 Taylor Ross, HARDWARE ENGINEER.SERVICE CENTER SPECIALIST [address] [place] [address] Lien Searcher Internal Medicine 02/06/24 Selina Erazo PA-C [address] [place] [address] Lien Searcher Internal Medicine 02/06/24 Chilling Hood Operator Relationship Specialty Start [place] [address] [place] [address] PCP - General Internal Medicine 01/30/19 Janey Patricia DO [address] [place], [place] [address] Primary Staff Physician Nephrology 03/26/21 Chung Dutton, HARDWARE ENGINEER.SERVICE CENTER SPECIALIST [address] [place] [address] Lien Searcher Internal Medicine 02/06/24 Lily Velez, HARDWARE ENGINEER.SERVICE CENTER SPECIALIST [address] [place] [address] [facility] Internal [facility] 02/06/24 Stepan Roberts, HARDWARE ENGINEER.SERVICE CENTER SPECIALIST [address] [place] [address] [facility] Internal Medicine 02/06/24 Taylor Ross, HARDWARE ENGINEER.SERVICE CENTER SPECIALIST [address] [place] [address] [facility] Internal Medicine 02/06/24 Selina Erazo PA-C [address] [place] [address] [facility] Internal Medicine 02/06/24 Chilling Hood Operator Relationship Specialty [place] [address] [place] [address] PCP - General Internal Medicine 01/30/19 Janey Patricia DO [address] [place] [address] Primary Staff Physician Nephrology 03/26/21 Chung Dutton, HARDWARE ENGINEER.SERVICE CENTER SPECIALIST [address] [place] [address] [facility] Internal Medicine 02/06/24 Lily Velez HARDWARE ENGINEER.SERVICE CENTER SPECIALIST [address] [place] [address] [facility] Internal Medicine 02/06/24 Stepan Roberts HARDWARE ENGINEER.SERVICE CENTER SPECIALIST [address] [place] [address] [facility] Internal Medicine 02/06/24 Taylor Ross APRN.SERVICE CENTER SPECIALIST [address] [place] [address] [facility] Internal Medicine 02/06/24 Selina Erazo PA-C [address] [place] [address] [facility] Internal Medicine 02/06/24 Chilling Hood Operator Relationship Specialty Start Date End Date Kayla Monterroso MD [address] [place] [address] PCP - General Internal Medicine 01/30/19 Janey Patricia DO [address] [place] [address] Primary Staff Physician Nephrology 03/26/21 Chung Dutton, HARDWARE ENGINEER.SERVICE CENTER SPECIALIST [address] [place] [address] [facility] Internal Medicine 02/06/24 Lily Velez APRN.SERVICE CENTER SPECIALIST [address] [place] [address] [facility] Internal Medicine 02/06/24 Stepan Roberts APRN.SERVICE CENTER SPECIALIST [address] [place] [address] [facility] Internal Medicine 02/06/24 Taylor Ross APRN.SERVICE CENTER SPECIALIST [address] [place] [address] [facility] Internal Medicine 02/06/24 Selina Erazo PA-C [id number] [place] [address] [facility] Internal Medicine 02/06/24 Chilling Hood Operator Relationship Specialty Start Date [place] Kayla [place]so [place] [id number] [place] [address] PCP - General Internal Medicine 01/30/19 Janey Patricia DO [address] [place] [address] Primary Staff Physician Nephrology 03/26/21 Chung Dutton APRN.SERVICE CENTER SPECIALIST [address] [place] [address] [facility] Internal Medicine 02/06/24 Lily Velez APRN.SERVICE CENTER SPECIALIST [address] [place] [address] [facility] Internal Medicine 02/06/24 Stepan Roberts APRN.SERVICE CENTER SPECIALIST [address] [place] [address] [facility] Internal Medicine 02/06/24 Taylor Ross APRN.SERVICE CENTER SPECIALIST [address] [place] [address] [facility] Internal Medicine 02/06/24 Selina Erazo PA-C [id number] [place] [address] [facility] Internal Medicine 02/06/24 Chilling Hood Operator Relationship Specialty Start Date End Date Kayla Monterroso MD [address] [place] [address] PCP - General Internal Medicine 01/30/19 Janey Patricia DO [address] [place] [address] Primary Staff Physician Nephrology 03/26/21 Chung Dutton APRN.SERVICE CENTER SPECIALIST [address] [place] [address] [facility] Internal Medicine 02/06/24 Lily Velez APRN.SERVICE CENTER SPECIALIST [address] [place] [address] [facility] Internal Medicine 02/06/24 Stepan Roberts APRN.SERVICE CENTER SPECIALIST [address] [place] [address] [facility] Internal Medicine 02/06/24 Taylor Ross APRN.SERVICE CENTER SPECIALIST [address] [place] [address] [facility] Internal Medicine 02/06/24 CentreSelina PA-C [address]27[address] [place] [address] L[facility] Internal Medicine 02/06/24 Chilling Hood Operator Relationship Specialty Start Date [place]la [place] [id number] [place] [address] PCP - General Internal Medicine 01/30/19 Janey Patricia DO [address] [facility] [place] [place] [id number] Primary Staff Physician Nephrology 03/26/21 Chung Dutton, HARDWARE ENGINEER.SERVICE CENTER SPECIALIST [address] [place] [address] [facility] Internal Medicine 02/06/24 Lily Velez, HARDWARE ENGINEER.SERVICE CENTER SPECIALIST [address] [place] [address] [facility] Internal Medicine 02/06/24 Stepan Roberts, HARDWARE ENGINEER.SERVICE CENTER SPECIALIST [address] [place] [address] [facility] Internal Medicine 02/06/24 Taylor Ross, HARDWARE ENGINEER.SERVICE CENTER SPECIALIST [address] [place] [address] [facility] Internal Medicine 02/06/24 Selina Erazo PA-C 289[address] [place] [address] [facility] Internal Medicine 02/06/24 Chilling Hood Operator Relationship Specialty [place] [address] [place] [address] PCP - General Internal Medicine 01/30/19 Janey Patricia DO [address] [place] [address] Primary Staff Physician Nephrology 03/26/21 Chung Dutton, HARDWARE ENGINEER.SERVICE CENTER SPECIALIST [address] [place] [address] [facility] Internal Medicine 02/06/24 Lily Velez, HARDWARE ENGINEER.SERVICE CENTER SPECIALIST [address] [place] [address] [facility] Internal Medicine 02/06/24 Stepan Roberts, HARDWARE ENGINEER.SERVICE CENTER SPECIALIST [address] [place] [address] [facility] Internal Medicine 02/06/24 Taylor Rsos, HARDWARE ENGINEER.SERVICE CENTER SPECIALIST [address] [place] [address] [facility] Internal Medicine 02/06/24 Selina Erazo PA-C [address] [place] [address] [facility] Internal Medicine 02/06/24 Chilling Hood Operator Relationship Specialty [place] [address] [place] [address] PCP - General Internal Medicine 01/30/19 Janey Patricia DO [address] [place], [place] [id number] Primary Staff Physician Nephrology 03/26/21 Chung Dutton, HARDWARE ENGINEER.SERVICE CENTER SPECIALIST [address] [place] [address] [facility] Internal Medicine 02/06/24 Lily Velez, HARDWARE ENGINEER.SERVICE CENTER SPECIALIST [address] [place] [address] [facility] Internal Medicine 02/06/24 Stepan Roberts, HARDWARE ENGINEER.SERVICE CENTER SPECIALIST [address] [place] [address] [facility] Internal Medicine 02/06/24 Taylor Ross, HARDWARE ENGINEER.SERVICE CENTER SPECIALIST [address] [place] [address] [facility] Internal Medicine 02/06/24 Selina Erazo PA-C 164[address] [place] [address] [facility] Internal Medicine 02/06/24 Chilling Hood Operator Relationship Specialty [place] [address] [place] [address] PCP - General Internal Medicine 01/30/19 Janey Patricia DO [address] [place] [address] Primary Staff Physician Nephrology 03/26/21 Chung Dutton APRN.SERVICE CENTER SPECIALIST [address] [place] [address] [facility] Internal Medicine 02/06/24 Stepan Roberts APRN.SERVICE CENTER SPECIALIST [address] [place] [address] [facility] Internal Medicine 02/06/24 Chilling Hood Operator Relationship Specialty [place] [address] [place] [address] PCP - General Internal Medicine 01/30/19 Janey Patricia DO [address] [place], [place] [id number] Primary Staff Physician Nephrology 03/26/21 Chung Dutton APRN.SERVICE CENTER SPECIALIST [address] [place] [address] [facility] Internal Medicine 02/06/24 Stepan Roberts, LUCIAN.SERVICE CENTER SPECIALIST [address] [place] [address] [facility] Internal Medicine 02/06/24 Ordered Prescriptions (unrec ognized section and content) [...] Oral, 2 TIMES DAILY, First dose on e 05/17/23 at 2100, Until Discontinued, Administer with food to minimize the risk of orthostatic hypotension 2157 (Given - Provider: Alissa Resendiz RN) 1328 (Given - Provider: Yesy Ruano, RAY)2112 (Given - Provider: Suerkha Brown, RAY) 818 (Given - Provider: Denisse Thompson, RAY)2099 (Due) doxazosin (CARDURA) tablet 2 mg 2 mg, Oral, NIGHTLY, First dose on 05/17/23 at 2100, Until Discontinued 2157 (Given - [...] RAY) 0818 (Given - Provider: Denisse Thompson, RN) rosuvastatin (CRESTOR) tablet 20 mg 20 [...] Brown RN)2014 (Stopped - Provider: Denisse Thompson, RN - Comment: stopped by other) amiodarone (CORDARONE) 450 mg in dextrose 5% 250 mL infusion (CANCELED)(Linked Group 1) 0.5 mg/min (16.6667 mL/hr, rounded to 16.7 mL/hr), IntraVENous, CONTINUOUS, Starting on Tue05/18/23 at 2030, Until Keyonna 05/19/23 at 0422, 16.7 ml/hr (0.5mg/min) Use in-line filter. 2012 (Rate/Dose Change - Provider: Surekha Brown RN) 421 (Stopped - Provider: Denisse Thompsno, RN - Comment: stopped by other) PRN [...] BE BASED ON THE PRIMARY CLINICAL RECORDS. [employer] provides no warranty or guarantee of the accuracy or completeness of information in this document.
--- NOTE | 2024-03-28 20:20 | PC.NURSE ---
this patient was awake and alert sitting upright on the bed, this patient voices no concerns and shows no signs of distress, this patient was given a mask to put while going upstairs
--- NOTE | 2024-03-28 20:30 | P.HP_ITS ---
HPI H&P: HPI History of Present Illness Chief complaint: COVID WEAKNESS Narrative: Patient lives at home with her , has had increasing weakness, admitted to the emergency room and found to have acute COVID-19 without hypoxia, with extreme weakness patient was admitted for workup and treatment of same When I saw patient in the emergency room, she was resting fairly comfortably bed does look very fatigued, no other specific complaints though Opioid HPI Opioid Management Most Recent Pain and Opioid Data: Last Pain Scale 0 01/25/24 07:07 01/25/24 Last Pain Intensity 0 06/06/23 11:18 06/06/23 Last ORT Total Score 0 06/01/23 22:34 06/01/23 Last ORT Risk Category Low Risk 06/01/23 22:34 06/01/23 Review of Systems ROS Status of ROS 10 or more systems reviewed and unremark able except as noted in history and below [facility] Medical History Paroxysmal atrial fibrillation ?I48.0 - Paroxysmal atrial fibrillation (ICD-10) Severe protein-calorie malnutrition ?E43 - Unspecified severe protein-calorie malnutrition (ICD-10) Anemia in CKD (chronic kidney disease) ?N18.9 - Chronic kidney disease, unspecified (ICD-10) ?D63.1 - Anemia in chronic kidney disease (ICD-10) CKD (chronic kidney disease) stage 4, GFR 15-29 ml/min ?N18.4 - Chronic kidney disease, stage 4 (severe) (ICD-10) Acute on chronic heart failure with preserved ejection fraction (HFpEF) ?I50.33 - Acute on chronic diastolic (congestive) heart failure (ICD-10) Weakness generalized ?R53.1 - Weakness (ICD-10) CAD (coronary artery disease), [place] coronary artery ?I25.10 - Atherosclerotic heart disease of [place] coronary artery without angina pectoris (ICD-10) Hypertension ?I10 - Essential (primary) hypertension (ICD-10) Chronic heart failure with preserved ejection fraction (HFpEF) ?I50.32 - Chronic diastolic (congestive) heart failure (ICD-10) Pain, dental ?K08.89 - Other specified disorders of teeth and supporting structures (ICD- 10) GERD (gastroesophageal reflux disease) ?K21.9 - Gastro-esophageal reflux disease without esophagitis (ICD-10) 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 - Unspecified atherosclerosis of [place] arteries of extremities, unspecified extremity (ICD-10) History of heart attack ?I25.2 - Old myocardial infarction (ICD-10) Abnormal colonoscopy ?R93.3 - Abnormal findings on diagnostic imaging of other parts of digestive tract (ICD-10) Colon polyp ?K63.5 - Polyp of colon (ICD-10) Surgical History H/O tubal ligation ?Z98.51 - Tubal ligation status (ICD-10) Hx of tonsillectomy ?Z90.89 - Acquired absence of other organs (ICD-10) Family History (Updated 06/16/23 @ 01:25 by Ira Blue) Sister Family history of diabetes mellitus Brother Family history of diabetes mellitus Social History Within the past year, how often did you have a drink containing alcohol: never Score interpretation: A score less than 3 is consistent with normal alcohol consumption. Smoking status: Former smoker Non-prescribed substance use: denies use Previous occupational history: retired Highest level of school completed/degree received: 11th grade Are you now , , , , never or living with a partner: In a typical week, how many times do you talk on the telephone with family, friends, or neighbors: once per week How often do you get together with friends or relatives: once per week How often do you attend uats[employer] or pres[employer] services: never Little interest or pleasure in doing things: not at all Feeling down, depressed, or hopeless: not at all Feel stressed/tense/nervous/anxious/difficulty sleeping: not at all Due to disability, difficulty making decisions: No Do you think of yourself as: straight/heterosexual Gender Identity: female Meds Home Medications and Allergies Home Medications ?Medication ?Instructions ?Recorded ?Confirmed ?Type doxazosin 2 mg tablet 2 mg PO BID 04/26/23 03/28/24 History hydralazine 50 mg tablet 50 mg PO Q8H 04/26/23 06/15/23 History spironolactone 25 mg tablet 12.5 mg (1/2 x 25 mg) PO QD #1 tab 06/06/23 03/28/24 Rx acetaminophen 500 mg tablet 500 mg PO Q6H PRN pain 06/15/23 03/28/24 History (Tylenol Extra Strength) sennosides 8.6 mg-docusate sodium 2 tab-cap PO BID PRN constipation 06/15/23 03/28/24 History 50 mg tablet (Docuzen) amiodarone 200 mg tablet 200 mg PO DAILY 03/28/24 03/28/24 History carvedilol 3.125 mg tablet 3.125 mg PO BID 03/28/24 03/28/24 History Allergies Allergy/AdvReac Type Severity Reaction Status Date / Time No Known Drug Allergies Allergy Verified 03/28/24 15:33 Exam Constitutional Vital Signs, click to edit/add: Last Vital Signs Temp 98.8 F 03/28/24 15:33 Pulse 76 03/28/24 17:09 Resp 20 03/28/24 17:09 BP 123/74 03/28/24 17:09 Pulse Ox 96 03/28/24 17:09 O2 Del Method Room Air 03/28/24 17:09 Documenting provider has reviewed patient's vital signs: yes Common normals: no apparent distress Chest Common normals: inspection of chest normal Respiratory Common normals: normal respiratory effort and no retractions Auscultation: rhonchi Cardio Common normals: regular rate and regular rhythm GI Common normals: Normal to inspection, nondistended, normoactive bowel sounds present and soft to palpation Extremity Common normals: normal to inspection Results Labs Labs: Short CBC 03/28/24 Range/Units 16:10 WBC 6.1 (4.0-11.0) 10^3/uL Hgb 9.9 L (12.0-16.0) g/dL Hct 30.8 L (36.0-48.0) % Plt Count 141 L (150-450) 10^3/uL BMP 03/28/24 16:10 Sodium 139 Potassium 4.1 Chloride 106 Carbon Dioxide 25.1 BUN 36.0 H Creatinine 1.93 H Glucose 78 Calcium 8.2 L Liver Function 03/28/24 Range/Units 16:10 Total Bilirubin 0.5 (0.2-1.0) mg/dL AST 13 L (15-37) U/L ALT 12 L (14-59) U/L Alkaline Phosphatase 62 (46-116) U/L Albumin 2.8 L (3.4-5.0) g/dL Assessment and Plan Assessment and Plan (1) Weakness: (2) COVID-19: Plan Admission status: Patient with mild bradycardia, thrombocytopenia, anemia, acute COVID-19 Acute COVID-19 but no hypoxia-will use everything that we normally would provide except the remdesivir due to the lack of hypoxia. Thrombocytopenia-monitor daily Acute elevation in creatinine-holding off on IV fluid resuscitation as that can benefit the COVID-19 History of atrial fibrillation she has been status post ablation and also a Watchman device placed in January Admission status: Patient with acute COVID-19, no hypoxia though so medically necessary treatment may only span 1 midnight, will start patient off with observational status, if she fails the initial observational time. She will be changed to inpatient status is then medically necessary treatment will span 2 midnights
[2024-03-28] MEDS: ALBUTEROL SULFATE 200 PUFF/6.7 GM INHALER IH (23:01)
[2024-03-28] MEDS: DEXAMETHASONE SOD PHOS 20 MG/5 ML VIAL 6 MG IV (23:16)
[2024-03-28] MEDS: AZITHROMYCIN 500 MG in 0.9 % SODIUM CHLORIDE 250 ML 250 MG IV (23:16)
[2024-03-29] MEDS: REMDESIVIR 200 MG in 0.9 % SODIUM CHLORIDE 250 ML 250 MG IV (00:33)
[2024-03-29 03:56] VITALS: PULSE 57; O2SAT 92
[2024-03-29] MEDS: ALBUTEROL SULFATE 200 PUFF/6.7 GM INHALER IH (03:56)
[2024-03-29 04:00] VITALS: BP 133/62; PULSE 60; TEMP 36.6; O2SAT 95
[2024-03-29 06:54] LABS: Hematocrit 30.2 % (36.0-48.0); Hemoglobin 9.9 g/dL (12.0-16.0); Mean Corpuscular HGB Conc 32.8 g/dL (29.9-35.2); Mean Corpuscular Hemoglobin 30.9 pg (26.7-34.0); Mean Corpuscular Volume 94.4 fL (81.0-99.0); Mean Platelet Volume 10.7 fL (9.5-13.5); Platelet Count 141 10^3/uL (150-450); Red Cell Distribution Width 14.8 % (11.0-15.0)
[2024-03-29 07:19] LABS: Troponin I High Sensitivity 31.3 pg/mL (4.0-51.3)
[2024-03-29 07:20] LABS: Alanine Aminotransferase 16 U/L (14-59); Albumin Globulin Ratio 0.8; Albumin Level 2.4 g/dL (3.4-5.0); Alkaline Phosphatase 61 U/L (46-116); Anion Gap 14.6; Aspartate Amino Transferase 26 U/L (15-37); BUN Creatinine Ratio 17.5; Bilirubin Total 0.3 mg/dL (0.2-1.0); Calcium 7.9 mg/dL (8.5-10.1); Carbon Dioxide 20.8 mmol/L (21.0-32.0); Chloride 109 mmol/L (98-107); Estimated GFR (African America 36 (>=60 mL/min/1.73m^2); Estimated GFR (Non-African Ame 29 (>=60 mL/min/1.73m^2); Globulin 2.9 g/dL; Glucose 122 mg/dL (74-106); Potassium 4.4 mmol/L (3.5-5.1); Sodium 140 mmol/L (136-145); Total Protein 5.3 g/dL (6.4-8.2)
[2024-03-29 07:41] LABS: Monocytes Absolute Manual 0.06 10^3/uL (0.30-0.80); Segmented Neut Absolute Manual 5.64 10^3/uL (1.4-6.5)
[2024-03-29 07:58] VITALS: BP 120/66; PULSE 57; TEMP 36.8; O2SAT 96
--- NOTE | 2024-03-29 09:25 | P.DS_ITS ---
DS: Providers Provider Date of admission: 03/28/24 20:02 Primary care physician: Non-Staff Physician, Consults: 03/28/24 Consult to Dietitian Routine Reason for consultation: poor appetite 03/28/24 19:15 Consult to Pharmacy Routine Consulting Provider: Reason for consultation: Please [place] me when Med Rec is Updated Has provider been notified: No Occupational Therapy Eval and Treat Routine Reason for consultation: Only if needed for Rehab Has provider been notified: No Physical Therapy Eval and Treat Routine Reason for consultation: Eval and Treat Has provider been notified: No DS: Diagnosis Discharge Diagnosis (1) Weakness: (2) COVID-19: Plan Admission status: Patient with mild bradycardia, thrombocytopenia, anemia, acute COVID-19 Acute COVID-19 but no hypoxia-will use everything that we normally would provide except the remdesivir due to the lack of hypoxia. Thrombocytopenia-monitor daily Acute elevation in creatinine-holding off on IV fluid resuscitation as that can benefit the COVID-19 History of atrial fibrillation she has been status post ablation and also a Watchman device placed in January Admission status: Patient with acute COVID-19, no hypoxia though so medically necessary treatment may only span 1 midnight, will start patient off with observational status, if she fails the initial observational time. She will be changed to inpatient status is then medically necessary treatment will span 2 midnights ? DS: Summary Hospital Course Hospital Course: Patient presented to the emergency room with mild bradycardia, thrombocytopenia, anemia, acute COVID-19. No hypoxia, significant weakness though patient was admitted overnight not given IV fluids as prefer to keep patient COVID patients on the dry side, she was treated with steroids, inhalers, Pepcid, Zyrtec, azithromycin. This morning she feels much improved she looks much improved, I challenged her that in order to be discharged home she is to ambulate safely. He worked with physical therapy and with nurses and was able to ambulate significantly well in the hallways. At this point should be discharged to home in improving condition. Medications see list. Follow-up with PCP within the next week. Status at Discharge Overall status at discharge: patient is not back to baseline Time Spent with Patient Time attestation: Total time spent providing and/or coordinating discharge services: Time spent: greater than 30 minutes Exam Constitutional Vital Signs, click to edit/add: Last Vital Signs Temp 98.2 F 03/29/24 07:58 Pulse 57 L 03/29/24 07:58 Resp 16 03/29/24 07:58 BP 120/66 03/29/24 07:58 Pulse Ox 96 03/29/24 07:58 O2 Del Method Room Air 03/29/24 07:58 Documenting provider has reviewed patient's vital signs: yes Common normals: no apparent distress Respiratory Common normals: normal respiratory effort Cardio Common normals: no JVD DS: Data Data Completed and Pending Labs on day of discharge: Labs from last 24 hours 03/29/24 03/28/24 03/28/24 06:19 16:10 15:35 WBC 6.0 6.1 RBC 3.20 L 3.26 L Hgb 9.9 L 9.9 L Hct 30.2 L 30.8 L MCV 94.4 94.5 MCH 30.9 30.4 MCHC 32.8 32.1 RDW 14.8 14.6 Plt Count 141 L 141 L MPV 10.7 10.3 Neut % (Auto) 75.1 H Lymph % (Auto) 15.2 L [place] % (Auto) 8.8 Eos % (Auto) 0.2 L Baso % (Auto) 0.5 Neut # (Auto) 4.6 Lymph # (Auto) 0.9 L [place] # (Auto) 0.5 Eos # (Auto) 0.0 Baso # (Auto) 0.0 Abs Immat Gran (auto) 0.01 Seg Neuts % (Manual) 94.0 H Lymphocytes % (Manual) 5.0 L Monocytes % (Manual) 1.0 L Eosinophils % (Manual) 0.0 L Basophils % (Manual) 0.0 L Imm/Tot Granulo (auto) 0.2 Neutrophils # (Manual) 5.64 Lymphocytes # (Manual) 0.30 L Monocytes # (Manual) 0.06 L Eosinophils # (Manual) 0.00 Basophils # (Manual) 0.00 Sodium 140 139 Potassium 4.4 4.1 Chloride 109 H 106 Carbon Dioxide 20.8 L 25.1 Anion Gap 14.6 12.0 BUN 30.0 H 36.0 H Creatinine 1.71 H 1.93 H Est GFR ( Amer) 36 L 31 L Est GFR (Non-Af Amer) 29 L 26 L BUN/Creatinine Ratio 17.5 18.7 Glucose 122 H 78 Lactate 0.8 Calcium 7.9 L 8.2 L Total Bilirubin 0.3 0.5 AST 26 13 L ALT 16 12 L Alkaline Phosphatase 61 62 Troponin I High Sens 31.3 15.4 Total Protein 5.3 L 5.6 L Albumin 2.4 L 2.8 L Globulin 2.9 2.8 Albumin/Globulin Ratio 0.8 1.0 Influenza Type A Ag Negative Influenza Type B Ag Negative SARS-CoV-2 Ag (CV2AG) Positive A Discharge Plan Discharge Disposition: Home, Self-Care Condition: Good Discharge Medications: New cetirizine 10 mg Tablet 20 mg PO QD Qty: 20 0RF famotidine 20 mg Tablet 20 mg PO Q48H Qty: 10 0RF azithromycin 500 mg tablet 500 mg PO DAILY 2 Days Qty: 2 0RF Rx Instructions: start on day 2 of therapy Paxlovid 300 mg (150 mg x 2)-100 mg tablets,dose pack See Rx Instructions .ROUTE .COMPLEX Qty: 30 0RF Rx Instructions: take TWO 150 mg tablets of nirmatrelvir with ONE 100 mg tablet of ritonavir twice daily for 5 days dexamethasone 6 mg tablet 6 mg PO Q24H Qty: 5 0RF Rx Instructions: for up to 10 days Continued spironolactone 25 mg Tablet 12.5 mg PO QD Qty: 1 0RF sennosides-docusate sodium [Docuzen] 8.6-50 mg tablet 2 tab-cap PO BID PRN (Reason: constipation) acetaminophen [Tylenol Extra Strength] 500 mg tablet 500 mg PO Q6H PRN (Reason: pain) hydralazine 50 mg tablet 50 mg PO Q8H doxazosin 2 mg tablet 2 mg PO BID carvedilol 3.125 mg tablet 3.125 mg PO BID Activity: ambulate only with your walker and resume usual activities as tolerated Diet: advance to your usual diet Print Language: [place] Patient Instructions: Weakness (DC), How to Recover from COVID-19 at Home (GEN) Forms: Portal Instructions Follow Up Appointments: Apr.06 @ 10:20am with Dr. Kayla Zurita [phone] Discharge Date/Time: 03/29/24 11:25
--- NOTE | 2024-03-29 09:39 | CM.NOTE ---
Rounds made with Dr. Puentes, discussed with pt possible discharge to home today. Pt will need PT and OT evaluation for discharge planning.
[2024-03-29] MEDS: PNEUMOC 20-VAL CONJ-DIP CRM/PF 0.5 ML SYRINGE IM (10:30)
[2024-03-29] MEDS: CETIRIZINE HCL 10 MG TABLET PO (10:30)
[2024-03-29 10:32] VITALS: BP 121/64
[2024-03-29] MEDS: DEXAMETHASONE SOD PHOS 4 MG/ML VIAL 6 MG IV (10:32)
[2024-03-29] MEDS: SPIRONOLACTONE 25 MG TABLET 12.5 MG PO (10:32)
[2024-03-29] MEDS: CARVEDILOL 3.125 MG TABLET PO (10:33)
[2024-03-29 10:34] VITALS: BP 121/64
[2024-03-29] MEDS: FLU VACC QS2024(65UP)/MF59C/PF 60 MCG/0.5 ML SYRINGE IM (10:34)
[2024-03-29] MEDS: DOXAZOSIN MESYLATE 2 MG TABLET PO (10:34)
[2024-03-29] MEDS: FAMOTIDINE 20 MG TABLET PO (10:36)
--- NOTE | 2024-03-29 10:53 | SWNOTE1 ---
Medicare Outpatient Observation Notice reviewed and discussed with patient. Pt. verbalized understanding and signed the form. Original given to patient and copy placed in patient?s chart.
--- NOTE | 2024-03-29 11:47 | SWNOTE1 ---
SW met with pt to discuss dc needs. Pt voiced that she did well with therapy and she does get to go home. Pt voiced that she has been doing good at home and that her PCP submitted script for rollator so they are waiting for that to come in. SW and pt did speak about home health services coming in, but she does not feel it is necessary. Pt voiced at this time she has no needs. She stated her significant other will be coming to get her. No anticipated discharge needs at this time. SW to follow as needed.
--- NOTE | 2024-04-05 15:34 | CM.DCFOLLOWU ---
04/05/24 2nd attempt, no answer
== END 2024-03-29 11:25 | disposition home or self-care (01) ==
LOC: ER 19:26 → MS 20:05
PROVIDERS: Physician Assistant; Admitting Provider Family Medicine; Emergency Provider Emergency Medicine; Visit Provider Family Medicine
DX: U07.1 COVID-19 (principal); R53.1 Weakness; I48.0 Paroxysmal atrial fibrillation; Z87.891 Personal history of nicotine dependence; D69.6 Thrombocytopenia, unspecified; R00.1 Bradycardia, unspecified; D64.9 Anemia, unspecified; R79.89 Other specified abnormal findings of blood chemistry; Z95.811 Presence of heart assist device; Z23 Encounter for immunization
CPT/HCPCS: 36415; 71045; 80053; 81001; 83605; 84484; 85007; 85025; 85027; 87070; 87804; 87811; 90662; 90677; 93005; 94640; 94667; 94761; 96365; 96366; 96368; 96375; 96376; 97161; 97165; 97530; 99285; G0008; G0009; G0378; J0248; J0456; J1100